=== PATIENT | female | born 2005 | race Caucasian/White ===

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

== ENCOUNTER 2023-03-09 13:23 | Emergency (ER) | payer OTHER, SELFPAY ==
--- NOTE | 2023-03-09 13:27 | ED.FEMALEGU ---
HPI - Female Genitourinary General Chief complaint: Urogenital-Female Stated complaint: Vaginal Issue/Pain Time Seen by Provider: 03/09/23 13:24 Source: patient Mode of arrival: ambulatory Limitations: no limitations History of Present Illness HPI Narrative: Rosalba is a 17-year-old female patient presenting to the clinic today with complaints of vaginal pain/bleeding. She reports symptoms just started this morning. States she was a few days late on her menses. Is having lower abdominal cramping with intense bleeding per patient. States that she has gone through alter pads within 10 minutes. Reports that this is not normal for her and she is having a lot more pain than her normal periods. She is sexually active. Has no concern for any sexually transmitted infection. Denies any other vaginal discharge. No fever or chills. History of ovarian cyst in the past. Related Data Home Medications Medication Instructions Recorded Confirmed bupropion HCl 150 mg 24 hr tablet, 150 mg PO DAILY 03/09/23 03/09/23 extended release lamotrigine 100 mg tablet 100 mg PO DAILY 03/09/23 03/09/23 lamotrigine 25 mg tablet 50 mg PO DAILY 03/09/23 03/09/23 Allergies Allergy/AdvReac Type Severity Reaction Status Date / Time metoclopramide [From Reglan] Allergy FELT ON Verified 10/21/22 09:32 FIRE Review of Systems Review of Systems: Pertinent positives per HPI. Patient denies any fever, chills, rash, headache, visual changes, dizziness, cough, runny nose, sore throat, shortness of breath, chest pain, palpitations, nausea, vomiting, diarrhea, constipation, abdominal pain, or any urinary issues. [facility] [place] Past Medical History Medical History Anxiety and depression Ear infection Surgical History Surgical History History of placement of ear tubes History of tonsillectomy and adenoidectomy Social History Social History Smoking status: Never smoker Alcohol intake: never Substance use type: does not use Living arrangements: with family Gender identity (if verbalized by the patient): Female Comments At the time of my signature, I reviewed and agree with the nursing past medical, surgical, social, and family history. There is no relevant family history pertinent to the patient complaint. Exam Narrative: General: Well-developed, well nourished, in no apparent distress. Head: Normocephalic, atraumatic. Cardio: Regular rate and rhythm, s1 and s2 normal, no murmur appreciated. Resp: Clear to auscultation bilaterally, no rhonchi, rales, wheezing or rubs. Abdomen: Soft, pliable, bowel sounds present in all quadrants, tenderness to palpation over the lower abdomen, pelvis, and bilateral adnexa, no organomegly, mild CVAT tenderness. Course Course Emergency Course: Portions of this record may have been created with voice recognition software. Level of Care: Express Care Visit Vital Signs Vital signs: Vital signs reviewed MDM - Female Genitourinary MDM Narrative Medical decision making narrative: At the time of visit patient is resting on the exam table. Currently rating her pain as 7/10. Urinalysis was performed and was negative for any sign of infection. She does have a trace of blood. Urine preg test was negative in the clinic today. Recommend transfer to the ER for further workup to rule out ovarian cyst. Patient would like to go to [facility] in [place]. Report call to Beba and she accepts patient for transfer. Patient to be transferred via private car. Differential Diagnosis Differential diagnosis: Likely urinary tract infection, bacterial vaginosis, cystitis and other (Dysmenorrhea, ovarian cyst, STI, vaginal tear/trauma) Discharge Plan Discharge Clinical Impression: Vaginal bleeding, Vaginal pain, Tyshawn
== END 2023-03-09 13:53 | disposition short-term general hospital (02) ==
LOC: EXPBETH 13:26
PROVIDERS: Emergency Provider Nurse Practitioner Family
DX: N93.9 Abnormal uterine and vaginal bleeding, unspecified (principal); R10.2 Pelvic and perineal pain; R10.31 Right lower quadrant pain; R10.32 Left lower quadrant pain; F41.9 Anxiety disorder, unspecified; F32.A Depression, unspecified
CPT/HCPCS: 81003; 81025; 99212; G0463

== ENCOUNTER 2023-05-29 13:14 | Emergency (ER) | payer OTHER, SELFPAY ==
[2023-05-29 13:20] VITALS: BP 125/74; PULSE 86; RESP 20; TEMP 36.8; O2SAT 100
--- NOTE | 2023-05-29 13:27 | ED.URI ---
HPI - URI/Sore Throat General Chief Complaint: Upper Respiratory Infection Stated Complaint: nausea and throat History of Present Illness HPI Narrative: PATIENT PRESENTS WITH SORE THROAT AND NAUSEA PATIENT REPORTS A HISTORY OF GERD FROM EATING SPICY CHIPS . PATIENT DENIES ANY TROUBLE SWALLOWING AND NO DROOLING. PATIENT HAS NOT TAKEN HER MEDICATION FOR GERD FOR QUITE SOME TIME. Related Data Home Medications Medication Instructions Recorded Confirmed lamotrigine 100 mg tablet 100 mg PO DAILY 03/09/23 03/09/23 lamotrigine 25 mg tablet 50 mg PO DAILY 03/09/23 03/09/23 Allergies Allergy/AdvReac Type Severity Reaction Status Date / Time metoclopramide [From Reglan] Allergy FELT ON Verified 10/21/22 09:32 FIRE Review of Systems Review of Systems: CONSTITUTIONAL: DENIES FEVER, CHILLS, OR SWEATS. EYES: DENIES VISUAL CHANGES, REDNESS, OR DISCHARGE. ENT: DENIES RHINORRHEA, CONGESTION, SORE THROAT, OR OTALGIA. CARDIOVASCULAR: DENIES CHEST PAIN, PALPITATIONS, OR EDEMA. RESPIRATORY: DENIES COUGH OR DYSPNEA. GASTROINTESTINAL: DENIES ABDOMINAL PAIN, NAUSEA, VOMITING, OR DIARRHEA. GENITOURINARY: DENIES DYSURIA OR HEMATURIA. SKIN: DENIES RASH OR ITCHING. MUSCULOSKELETAL: DENIES BACK PAIN, JOINT PAIN, OR MYALGIA. NEUROLOGIC: DENIES HEADACHE, NUMBNESS, OR WEAKNESS. PSYCHIATRIC: DENIES ANXIETY OR DEPRESSION. PMFSH Past Medical History Medical History Anxiety and depression Ear infection Surgical History Surgical History History of placement of ear tubes History of tonsillectomy and adenoidectomy Social History Social History Smoking status: Never smoker Alcohol intake: never Substance use type: does not use Living arrangements: with family Gender identity (if verbalized by the patient): Female Comments AT TIME OF SIGNATURE, AGREE WITH NURSING PAST MEDICAL, SURGICAL, SOCIAL AND FAMILY HISTORY. THERE IS NO RELEVANT FAMILY HISTORY PERTINENT TO THE PRESENTING COMPLAINT SHE HAS 1 NO CATRACHO Exam Narrative: GENERAL: WELL-APPEARING, WELL-NOURISHED, AND IN NO ACUTE DISTRESS. HEAD: NORMOCEPHALIC, ATRAUMATIC. EYES: PERRLA AND EOMI. ENT: NARES CLEAR, NO RHINORRHEA OR EPISTAXIS. MUCOUS MEMBRANES MOIST. NECK: SUPPLE. CHEST: CLEAR TO AUSCULTATION. NO RESPIRATORY DISTRESS. HEART: REGULAR RATE AND RHYTHM. NO MURMUR HEARD. NORMAL PERIPHERAL PULSES. ABDOMEN: SOFT, NONTENDER, NONDISTENDED, NORMAL ACTIVE BOWEL SOUNDS. EXTREMITIES: NORMAL RANGE OF MOTION. NO EDEMA. SKIN: WARM, DRY, NO RASH. NEURO: NO FOCAL DEFICITS. ALERT AND ORIENTED X3. RORY COMA SCALE EYE OPENING: SPONTANEOUS 4 RORY COMA SCALE MOTOR: OBEYS COMMANDS 6 RORY COMA SCALE VERBAL: ORIENTED 5 RORY COMA SCALE TOTAL 15 RIGHT CALL TOMORROW Course Course Level of Care: Express Care Visit Discharge Plan Discharge Clinical Impression: Pharyngitis, Chronic GERD Additional Instructions: Increase fluids especially juices and water AVOID EATING TWO HOURS PRIOR TO BEDTIME ELEVATE HEAD OF BED FOLLOW BLANK DIET, AVOID FAST FOODS, FRIED AND SPICY FOODS FOLLOW UP WITH PCP IN 7-10 DAYS FOR RE EVALUATION OF OMEPRAZOLE MEDICATION -If you have any worsening of symptoms or any other concerns please go to the ED immediately. She Prescriptions: New omeprazole 40 mg capsule,delayed release(DR/EC) 40 mg PO DAILY Qty: 30 0RF No Action lamotrigine 25 mg tablet 50 mg PO DAILY lamotrigine 100 mg tablet 100 mg PO DAILY Follow-up/Referrals: PHYSICIAN,PHYSICAL SECURITY ENGINEER [Primary Care Provider] - Stand Alone Forms: Work/School Release IP
== END 2023-05-29 13:42 | disposition home or self-care (01) ==
PROVIDERS: Emergency Provider Nurse Practitioner Family
DX: J02.9 Acute pharyngitis, unspecified (principal); K21.9 Gastro-esophageal reflux disease without esophagitis
CPT/HCPCS: 87081; 87880; 99213; G0463

== ENCOUNTER 2023-07-22 09:41 | Emergency (ER) | payer OTHER, SELFPAY ==
[2023-07-22 09:46] VITALS: BP 128/80; PULSE 88; RESP 16; TEMP 36.3; O2SAT 99
--- NOTE | 2023-07-22 10:08 | ED.ABDPAIN ---
HPI - Abdominal Pain General Chief Complaint: Abdominal Pain Stated Complaint: Vomiting Source: patient, family and RN notes reviewed History of Present Illness HPI narrative: 18 yo F presents to urgent care with mom at side. Pt states she woke up this morning at 3 am with complaints of lower abdominal pain. Pt states she got up to use the restroom and she began vomiting. Pt states when she vomits, her whole body goes red and hot. Pt reports her abdominal pain is right, mid, and left lower abdomen. Pt denies any constipation, diarrhea, flank pain, back pain, burning with urination, fevers, or chills. Pt denies any chest pain or SOB. Pt's LMP was 2 weeks ago. Related Data Home Medications Medication Instructions Recorded Confirmed bupropion HCl 150 mg 24 hr tablet, 150 mg PO DIRECTED 07/22/23 07/22/23 extended release Allergies Allergy/AdvReac Type Severity Reaction Status Date / Time metoclopramide [From Reglan] Allergy FELT ON Verified 07/22/23 09:56 FIRE Review of Systems Review of Systems: Pertinent positives and pertinent negatives per HPI. PMFSH Past Medical History Medical History Anxiety and depression Ear infection Surgical History Surgical History History of placement of ear tubes History of tonsillectomy and adenoidectomy Social History Social History Smoking status: Never smoker Alcohol intake: never Substance use type: does not use Living arrangements: with family Gender identity (if verbalized by the patient): Female Comments At the time of my signature, I reviewed and agree with the nursing past medical, surgical, social, and family history. There is no relevant family history pertinent to the patient complaint. Exam Narrative: GENERAL: This is a well-nourished, well-developed patient, in no apparent distress. HEAD: normocephalic, atraumatic. EYES: Sclera clear/white. Vision is grossly intact. EARS: External ears normal, auditory canals clear and without drainage, TMs normal without perforation. Hearing grossly intact. NOSE: External nose normal with no obvious nasal discharge, nares without redness, no rhinorrhea. THROAT: Mucous membranes moist, posterior pharynx clear. NECK: Neck supple, non-tender without lymphadenopathy, masses or thyromegaly. CARDIOVASCULAR: Regular rate and rhythm without murmurs, gallops, or rubs. RESPIRATORY: Clear to auscultation. Breath sounds equal bilaterally. No wheezes, rales, or rhonchi. GASTROINTESTINAL: Abdomen soft, tender to mid lower abdomen, LLQ and RLQ mildly. nondistended. Bowel sounds are hypoactive. No hepato-splenomegaly, or palpable masses. No guarding. SKIN: warm, intact with no suspicious lesions or rash, good texture and turgor. NEURO: awake, alert, and oriented to person, place and time. There were no obvious focal neurologic abnormalities. EXTREMITIES: No clubbing, cyanosis, or edema. No joint tenderness, effusion, or edema noted. BACK: Nontender without deformity or crepitus. No flank tenderness. Course Course Level of Care: Express Care Visit Vital Signs Vital signs: Vital Signs Temperature 97.3 F L 07/22/23 09:46 Pulse Rate 88 07/22/23 09:46 Respiratory Rate 16 07/22/23 09:46 Blood Pressure 128/80 07/22/23 09:46 Pulse Oximetry 99 07/22/23 09:46 Oxygen Delivery Room Air 07/22/23 09:46 Temperature 97.3 F L 07/22/23 09:46 Pulse Rate 88 07/22/23 09:46 Respiratory Rate 16 07/22/23 09:46 Blood Pressure 128/80 07/22/23 09:46 Pulse Oximetry 99 07/22/23 09:46 Oxygen Delivery Room Air 07/22/23 09:46 reviewed MDM - Abdominal Pain MDM Narrative Medical decision making narrative: It was recommended pt be seen in the ER for her lower abdominal pain. Pt states she wants to avoid the ER and
[2023-07-22] MEDS: ONDANSETRON HCL ODT 4 MG TABLET PO (10:16)
== END 2023-07-22 10:50 | disposition home or self-care (01) ==
PROVIDERS: Emergency Provider Nurse Practitioner Family
DX: K52.9 Noninfective gastroenteritis and colitis, unspecified (principal); Z79.899 Other long term (current) drug therapy
CPT/HCPCS: 81003; 81025; 87086; 87088; 99213; A9270; G0463

== ENCOUNTER 2023-08-23 15:22 | Emergency (ER) | payer OTHER, SELFPAY ==
--- NOTE | ~2023-08-23 | XR_ITS ---
XR hand RT min 3V 08/23/2023 15:48 INDICATION: Right hand pain PROCEDURE: 3 views right hand COMPARISON: 06/11/2016 FINDINGS: Fracture, dislocation or subluxation is not identified. The soft tissues appear within norm al limits. No foreign bodies are identified. IMPRESSION: 1: NO ACUTE BONE OR JOINT ABNORMALITY IDENTIFIED. Reviewed, dictated and finalized at location B. [facility]
[2023-08-23 15:27] VITALS: BP 114/67; PULSE 80; RESP 16; TEMP 36.6; O2SAT 99
--- NOTE | 2023-08-23 15:37 | ED.GENADULT ---
HPI - General Adult General Chief complaint: Extremity Injury, Upper Stated complaint: pain in right hand/wrist Source: patient, RN notes reviewed and old records reviewed Mode of arrival: ambulatory Limitations: no limitations History of Present Illness HPI narrative: 18-year-old female presents to [facility] with complaints right wrist, hand pain this started a few days ago while at work. 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 Patient states tried rest hand without relief. patient also got wrist splint but only were 1 day. PATIENT STATES HE HAS HAD BROKEN BONE IN THE HAND BEFORE AND FEELS LIKE IT MAY BE BROKEN. PATIENT REQUESTING X-RAY MD complaint: Hand/wrist pain Onset (ago): day(s) (2-3) Related Data Home Medications Medication Instructions Recorded Confirmed bupropion HCl 150 mg 24 hr tablet, 150 mg PO DIRECTED 07/22/23 07/22/23 extended release aripiprazole 2 mg tablet mg 08/23/23 lamotrigine 100 mg tablet mg 08/23/23 lamotrigine 25 mg tablet mg 08/23/23 omeprazole 40 mg capsule,delayed mg 08/23/23 release prazosin 2 mg capsule mg 08/23/23 Allergies Allergy/AdvReac Type Severity Reaction Status Date / Time metoclopramide [From Reglan] Allergy FELT ON Verified 08/23/23 15:35 FIRE Review of Systems Constitutional: Constitutional: Reports no additional constitutional complaints, Denies body ache(s), Denies chills, Denies fatigue, Denies fever(s) and Denies headache(s) Eyes: Eyes: Reports no additional eye complaints and Denies blurry vision ENT: Reports system reviewed and no additional complaints, except as documented, Denies vertigo, Denies dizziness, Denies ear discharge, Denies otalgia, Denies facial pain, Denies headache(s), Denies nasal congestion, Denies nasal discharge, Denies sinus pain, Denies sinus pressure and Denies sore throat Cardiovascular: Cardiovascular: Reports no additional cardiovascular complaints, Denies chest pain, Denies chest pain at rest, Denies rapid heart rate and Denies dyspnea Respiratory: Respiratory: Reports no additional respiratory complaints, Denies chest congestion, Denies cough, Denies pain on inspiration, Denies pain with cough and Denies dyspnea Gastrointestinal: Gastrointestinal: Denies abdominal pain, Denies diarrhea, Denies nausea and Denies vomiting Musculoskeletal: Musculoskeletal: Reports as per HPI and Reports other ( right wrist and hand pain) Integumentary/Breasts: Skin/Breast: Denies rash Neurologic: Reports system reviewed and no additional complaints, except as documented, Denies vertigo, Denies dizziness and Denies headache(s) Endocrine: Endocrine: Denies fatigue PMFSH Past Medical History Medical History Anxiety and depression Ear infection Surgical History Surgical History History of placement of ear tubes History of tonsillectomy and adenoidectomy Social History Social History Smoking status: Never smoker Alcohol intake: never Substance use type: does not use Living arrangements: with family Gender identity (if verbalized by the patient): Female Comments At the time of my signature, I reviewed and agree with the nursing past medical, surgical, social, and family history. There is no relevant family history pertinent to the patient complaint. Exam Const: General: cooperative, healthy appearing, no acute distress and well nourished Nutritional Appearance: well nourished Orientation/consciousness: patient oriented x3 Limitations: no limitations HENMT: Head: normal to inspection and normocephalic Ears: external ears normal, TM's normal bilaterally, mastoids normal and Abnormal EAC present Face/Nose/Sinus: normal facial exam Face and sinus: normal facial exam Mouth: Yes Normal oral and palatal mucosa present, Yes oropharynx normal and Yes moist mu
== END 2023-08-23 16:15 | disposition home or self-care (01) ==
PROVIDERS: Emergency Provider Registered Nurse
DX: M77.8 Other enthesopathies, not elsewhere classified (principal); F41.9 Anxiety disorder, unspecified; F32.A Depression, unspecified
CPT/HCPCS: 73130; 99213; G0463

== ENCOUNTER 2023-10-03 11:31 | Emergency (ER) | payer OTHER, SELFPAY ==
[2023-10-03 11:34] VITALS: BP 133/78; PULSE 82; RESP 20; TEMP 37; O2SAT 100
--- NOTE | 2023-10-03 12:08 | ED.FEMALEGU ---
HPI - Female Genitourinary General Chief complaint: Urogenital-Female Stated complaint: Poss UTI Time Seen by Provider: 10/03/23 12:12 Source: patient, RN notes reviewed and old records reviewed Mode of arrival: ambulatory Limitations: no limitations History of Present Illness HPI Narrative: 18 year old female who presents to [facility] care with complaints of frequency of urination, urgency and perineal pressure with some bilateral flank pain with stated history of past UTI's for the past 2 days.. Patient reports that she has some low back pain and also some bilateral flank pain on palpation. Patient reports that she has been drinking a lot of water. Patient report recent hospitalization for mental health issues reports that she is in counseling and goes to [facility]. Patient reports no concern for STD's or . MD elicited complaint: UTI Pertinent past history: other (past history of UTI's) Location of symptoms: suprapubic, low back and flank Severity scale (1-10): 6 Vaginal discharge: none Related Data Home Medications Medication Instructions Recorded Confirmed bupropion HCl 150 mg 24 hr tablet, 150 mg PO DAILY 10/03/23 10/03/23 extended release lurasidone 40 mg tablet 40 mg PO DAILY 10/03/23 10/03/23 prazosin 2 mg capsule 2 mg PO DAILY 10/03/23 10/03/23 Allergies Allergy/AdvReac Type Severity Reaction Status Date / Time metoclopramide [From Reglan] Allergy FELT ON Verified 10/03/23 11:43 FIRE Review of Systems Review of Systems: CONSTITUTIONAL: Denies fever, chills, or sweats. CARDIOVASCULAR: Denies chest pain, palpitations, or edema. RESPIRATORY: Denies cough or dyspnea. GASTROINTESTINAL: Denies abdominal pain, nausea, vomiting, or diarrhea. GENITOURINARY: Reports dysuria, frequency, urgency. reports low back and flank pain no hematuria. SKIN: Denies rash or itching. MUSCULOSKELETAL: reports low back pain or myalgia. Positive for CVA tenderness NEUROLOGIC: Denies headache All systems reviewed & are unremarkable except as noted in HPI and below PMFSH Past Medical History Medical History Anxiety and depression Bipolar 1 disorder, mixed Ear infection Fracture of right hand UTI (urinary tract infection) Surgical History Surgical History History of placement of ear tubes History of tonsillectomy and adenoidectomy Social History Social History (Updated 10/05/23 @ 10:42 by Naomy Hernandez NP) Smoking status: Current every day smoker Tobacco type: e-cigarettes/vaping Alcohol intake: never Substance use type: does not use Living arrangements: with family Gender identity (if verbalized by the patient): Female Comments At time of signature, agree with nursing past medical, surgical, social and family history. There is no relevant family history pertinent to the presenting complaint Exam Narrative: GENERAL: Well-appearing, well-nourished, and in no acute distress. HEAD: Normocephalic, atraumatic. NECK: Supple.no lymphadenopathy CHEST: Clear to auscultation. No respiratory distress.SAO2 100% on room air HEART: Regular rate and rhythm. No murmur heard. Normal peripheral pulses. ABDOMEN: Soft, suprapubic tender, nondistended, normal active bowel sounds. positive for CVA tenderness, frequency burning with urination EXTREMITIES: Normal range of motion. No edema. SKIN: Warm, dry, no rash. NEURO: No focal deficits. Alert and oriented x3. Course Course Emergency Course: Patient is aware of diagnosis, understands and agrees to treatment plan.? Anticipatory guidance given.? Patient agrees to follow-up as directed and is aware of reasons to seek care at the emergency department. Portions of this record may have been created with voice recognition software Level of Care: Express Care Visit Vital Signs Vital signs: Vital Signs Temperature 37.0 C 10/03/23
--- NOTE | 2023-10-03 12:44 | PC.NURSE ---
noted on discharge pt refuses info related to suicide prevention ... states goes to [facility], has a good counsellor, and is very happy with outcome.
== END 2023-10-03 12:30 | disposition home or self-care (01) ==
PROVIDERS: Emergency Provider Registered Nurse
DX: R35.0 Frequency of micturition (principal); R39.15 Urgency of urination; R10.9 Unspecified abdominal pain; M54.50 Low back pain, unspecified; F41.9 Anxiety disorder, unspecified; F31.9 Bipolar disorder, unspecified
CPT/HCPCS: 81003; 87086; 99213; G0463

== ENCOUNTER 2023-12-07 11:57 | Emergency (ER) | payer OTHER, SELFPAY ==
[2023-12-07 12:02] VITALS: BP 130/65; PULSE 70; RESP 16; TEMP 37.4; O2SAT 100
--- NOTE | 2023-12-07 12:03 | ED.GENADULT ---
HPI - General Adult General Chief complaint: Urogenital-Female Stated complaint: pressure to urinate/back pain Source: patient, RN notes reviewed and old records reviewed Mode of arrival: ambulatory Limitations: no limitations History of Present Illness HPI narrative: 18-year-old female presents to [facility] with complaints of urinary frequency, urinary urgency, cloudy urine, and right flank pain that started 5 days ago. Patient has been taking [id number] ibuprofen and azo with little relief. Patient denies fever, nausea, vomiting, abdominal pain. Related Data Home Medications Medication Instructions Recorded Confirmed bupropion HCl 150 mg 24 hr tablet, 150 mg PO DAILY 10/03/23 12/07/23 extended release lurasidone 40 mg tablet 40 mg PO DAILY 10/03/23 12/07/23 prazosin 2 mg capsule 2 mg PO DAILY 10/03/23 12/07/23 Allergies Allergy/AdvReac Type Severity Reaction Status Date / Time metoclopramide [From Reglan] Allergy FELT ON Verified 10/03/23 11:43 FIRE Review of Systems Constitutional: Constitutional: Reports no additional constitutional complaints, Denies body ache(s), Denies chills, Denies fatigue, Denies fever(s) and Denies headache(s) Eyes: Eyes: Reports no additional eye complaints and Denies blurry vision ENT: Reports system reviewed and no additional complaints, except as documented, Denies vertigo, Denies dizziness, Denies ear discharge, Denies otalgia, Denies facial pain, Denies headache(s), Denies nasal congestion, Denies nasal discharge, Denies sinus pain, Denies sinus pressure and Denies sore throat Cardiovascular: Cardiovascular: Reports no additional cardiovascular complaints, Denies chest pain, Denies chest pain at rest, Denies rapid heart rate and Denies dyspnea Respiratory: Respiratory: Reports no additional respiratory complaints, Denies chest congestion, Denies cough, Denies pain on inspiration, Denies pain with cough and Denies dyspnea Gastrointestinal: Gastrointestinal: Denies abdominal pain, Denies diarrhea, Denies nausea and Denies vomiting Genitourinary: Genitourinary: Reports as per HPI, Reports nocturia, Denies dysuria, Denies pelvic pain, Reports flank pain, Reports urinary urgency and Denies vaginal discharge Integumentary/Breasts: Skin/Breast: Denies rash Neurologic: Reports system reviewed and no additional complaints, except as documented, Denies vertigo, Denies dizziness and Denies headache(s) Endocrine: Endocrine: Denies fatigue PMFSH Past Medical History Medical History Anxiety and depression Bipolar 1 disorder, mixed Ear infection Fracture of right hand UTI (urinary tract infection) Surgical History Surgical History History of placement of ear tubes History of tonsillectomy and adenoidectomy Social History Social History Smoking status: Current every day smoker Tobacco type: e-cigarettes/vaping Alcohol intake: never Substance use type: does not use Living arrangements: with family Gender identity (if verbalized by the patient): Female Comments At the time of my signature, I reviewed and agree with the nursing past medical, surgical, social, and family history. There is no relevant family history pertinent to the patient complaint. Exam Const: General: cooperative, healthy appearing, no acute distress and well nourished Nutritional Appearance: well nourished Orientation/consciousness: patient oriented x3 Limitations: no limitations HENMT: Head: normal to inspection and normocephalic Ears: external ears normal, TM's normal bilaterally, mastoids normal and Abnormal EAC present Face/Nose/Sinus: normal facial exam Face and sinus: normal facial exam Mouth: Yes Normal oral and palatal mucosa present, Yes oropharynx normal and Yes moist mucous membranes Throat: tonsils normal, u
== END 2023-12-07 12:24 | disposition home or self-care (01) ==
PROVIDERS: Emergency Provider Registered Nurse; PCP Family Medicine
DX: R10.9 Unspecified abdominal pain (principal); F17.290 Nicotine dependence, other tobacco product, uncomplicated; F41.9 Anxiety disorder, unspecified; F32.A Depression, unspecified
CPT/HCPCS: 81003; 81025; 87086; 99213; G0463

== ENCOUNTER 2024-01-08 18:26 | Emergency (ER) | payer OTHER, SELFPAY ==
--- NOTE | ~2024-01-08 | XR_ITS ---
EXAM: XR hand LT min 3V DATE: 01/08/2024 18:59 HISTORY: hurt LT hand . COMPARISON: None available. FINDINGS: Normal mineralization. No fracture or dislocation. No lytic or blastic lesion. Joint space s are maintained. No erosion or periosteal change. Soft tissues within normal limits. IMPRESSION: No acute osseous finding in the left hand. Reviewed, dictated and finalized at location K.
[2024-01-08 18:36] VITALS: BP 118/74; PULSE 94; RESP 20; TEMP 37.6; O2SAT 100
--- NOTE | 2024-01-08 18:41 | ED.URI ---
HPI - URI/Sore Throat General Chief Complaint: Extremity Injury, Upper Stated Complaint: left hand dislocated fingers Time Seen by Provider: 01/08/24 18:41 Source: patient, family, RN notes reviewed and old records reviewed Mode of arrival: ambulatory Limitations: no limitations History of Present Illness HPI Narrative: 18 year old female accompanied by mother presents to express care with complaints of left middle finger pain and injury. She reports that she was attempting to break apart six pack meraz made of strong plastic around 1800. Patient states that she had pain to her left middle finger and her finger looked crooked.Reports that her left middle finger continues to throb. MD elicited complaint: other (left middle finger pain and concerned looks crooked) Onset (ago): hour(s) (at 1800) Pain scale (0-10): 4 Treatments prior to arrival: none Related Data Home Medications Medication Instructions Recorded Confirmed bupropion HCl 150 mg 24 hr tablet, 150 mg PO DAILY 10/03/23 01/08/24 extended release lurasidone 40 mg tablet 40 mg PO DAILY 10/03/23 01/08/24 prazosin 2 mg capsule 2 mg PO DAILY 10/03/23 01/08/24 Allergies Allergy/AdvReac Type Severity Reaction Status Date / Time metoclopramide [From Reglan] Allergy FELT ON Verified 01/08/24 19:21 FIRE Review of Systems Review of Systems: CONSTITUTIONAL: Denies fever, chills, or sweats. EYES: Denies visual changes, redness, or discharge. ENT: Denies rhinorrhea, congestion, sore throat, or otalgia. CARDIOVASCULAR: Denies chest pain, palpitations, or edema. RESPIRATORY: Denies cough or dyspnea. GASTROINTESTINAL: Denies abdominal pain, nausea, vomiting, or diarrhea. GENITOURINARY: Denies dysuria or hematuria. SKIN: Denies rash or itching. MUSCULOSKELETAL: Denies back pain, positive for pain to left hand and fingers, or myalgia. NEUROLOGIC: Denies headache, numbness, or weakness. PSYCHIATRIC: Positive for history of anxiety or depression. All systems reviewed & are unremarkable except as noted in HPI and below PMFSH Past Medical History Medical History Anxiety and depression Bipolar 1 disorder, mixed Ear infection Fracture of right hand UTI (urinary tract infection) Surgical History Surgical History History of placement of ear tubes History of tonsillectomy and adenoidectomy Social History Social History Smoking status: Current every day smoker Tobacco type: e-cigarettes/vaping Alcohol intake: never Substance use type: does not use Living arrangements: with family Gender identity (if verbalized by the patient): Female Comments At time of signature, agree with nursing past medical, surgical, social and family history. There is no relevant family history pertinent to the presenting complaint Exam Narrative: GENERAL: Well-appearing, well-nourished, and in no acute distress. HEAD: Normocephalic, atraumatic. EYES: PERRLA and EOMI. ENT: Nares clear, no rhinorrhea or epistaxis. Mucous membranes moist.TM's normal throat pink tonsil absent. NECK: Supple.no lymphadenopathy CHEST: Clear to auscultation. No respiratory distress.SAO2 100% on room air HEART: Regular rate and rhythm. No murmur heard. Normal peripheral pulses. ABDOMEN: Soft, nontender, nondistended, normal active bowel sounds. EXTREMITIES: Normal range of motion. No edema. no obvious deformity to left middle finger, is tender to palpation, circulation and sensation is intact with patient able to move on own power, ice in place. SKIN: Warm, dry, no rash. NEURO: No focal deficits. Alert and oriented x3. Course Course Emergency Course: Patient is aware of diagnosis, understands and agrees to treatment plan.? Anticipatory guidance given.? Patient agrees to follow-up as directed and is aware of reasons to seek care at
== END 2024-01-08 19:45 | disposition home or self-care (01) ==
PROVIDERS: Emergency Provider Registered Nurse; PCP Family Medicine
DX: S63.613A Unspecified sprain of left middle finger, initial encounter (principal); T14.90XA Injury, unspecified, initial encounter; F41.8 Other specified anxiety disorders; F31.9 Bipolar disorder, unspecified; F17.290 Nicotine dependence, other tobacco product, uncomplicated
CPT/HCPCS: 73130; 99213; G0463

== ENCOUNTER 2024-01-25 14:15 | Emergency (ER) | payer OTHER, SELFPAY ==
[2024-01-25 14:23] VITALS: BP 132/78; PULSE 76; RESP 18; TEMP 37.1; O2SAT 100
--- NOTE | 2024-01-25 15:16 | PC.NURSE ---
mother came to nurse station and stated unable to wait dt another appt., had said with initial assessment that time was limited and was aware of xpc status. said would wait as long as possible. aware next to be seen. said would wait 5 more min. but would have to leave after that.
--- NOTE | 2024-01-25 21:55 | ED.URI ---
HPI - URI/Sore Throat General Chief Complaint: Upper Respiratory Infection Stated Complaint: Congestion/Sore Throat/Fever Time Seen by Provider: 01/25/24 15:02 Source: patient, RN notes reviewed and old records reviewed Mode of arrival: ambulatory Limitations: no limitations History of Present Illness HPI Narrative: 18-year-old female to Express Care for complaint of sore throat for 6 days. Patient also endorsing bilateral ear discomfort and vomiting. Patient denies fever, cough, shortness of breath, chest pain, GI complaints. Patient able to tolerate fluids by mouth. Respirations even, nonlabored. Patient in no acute distress. Related Data Home Medications Medication Instructions Recorded Confirmed bupropion HCl 150 mg 24 hr tablet, 150 mg PO DAILY 10/03/23 01/08/24 extended release lurasidone 40 mg tablet 40 mg PO DAILY 10/03/23 01/08/24 prazosin 2 mg capsule 2 mg PO DAILY 10/03/23 01/08/24 Allergies Allergy/AdvReac Type Severity Reaction Status Date / Time metoclopramide [From Reglan] Allergy FELT ON Verified 01/08/24 19:21 FIRE Review of Systems Review of Systems: All systems reviewed & are unremarkable except as noted in HPI and below Constitutional: Constitutional: Reports no additional constitutional complaints Eyes: Eyes: Reports no additional eye complaints ENT: Reports as per HPI, Reports otalgia and Reports sore throat Cardiovascular: Cardiovascular: Reports no additional cardiovascular complaints, Denies chest pain and Denies dyspnea Respiratory: Respiratory: Reports no additional respiratory complaints, Denies cough and Denies dyspnea Gastrointestinal: Gastrointestinal: Reports vomiting Musculoskeletal: Musculoskeletal: Reports no additional musculoskeletal complaints Neurologic: Reports system reviewed and no additional complaints, except as documented Psychiatric: Psychiatric: Reports no additional psychiatric complaints [facility] Past Medical History Medical History Anxiety and depression Bipolar 1 disorder, mixed Ear infection Fracture of right hand UTI (urinary tract infection) Surgical History Surgical History History of placement of ear tubes History of tonsillectomy and adenoidectomy Social History Social History Smoking status: Current every day smoker Tobacco type: e-cigarettes/vaping Alcohol intake: never Substance use type: does not use Living arrangements: with family Gender identity (if verbalized by the patient): Female Comments At the time of my signature, I reviewed and agree with the nursing past medical, surgical, social, and family history. There is no relevant family history pertinent to the patient complaint. Exam Const: General: cooperative, no acute distress, alert, tired appearing, uncomfortable and well nourished Nutritional Appearance: well nourished Orientation/consciousness: patient oriented x3 Limitations: no limitations HENMT: Head: normal to inspection Ears: external ears normal and TM abnormal with fluid behind the TM bilateral and diffuse Face/Nose/Sinus: Normal external nose present, Normal nares present, normal facial exam, No erythema and No edema Face and sinus: normal facial exam, no erythema and no edema Mouth: Yes Normal oral and palatal mucosa present Throat: posterior oropharynx abnormal erythema and exudates and postnasal drainage Eyes: General: appearance normal, both eyes and all related structures Neck: Neck: normal visual inspection, full ROM and no meningeal signs Lymphatic: no lymphadenopathy noted and no lymphedema noted Chest: Chest palpation & inspection: normal inspection of the chest Resp: Effort & Inspection: normal respiratory effort and able to speak in complete sentences Auscultation: clear to auscultation bilateral
== END 2024-01-25 15:24 | disposition home or self-care (01) ==
PROVIDERS: Emergency Provider Nurse Practitioner Family; PCP Family Medicine
DX: J02.0 Streptococcal pharyngitis (principal); F17.290 Nicotine dependence, other tobacco product, uncomplicated; F41.9 Anxiety disorder, unspecified; F31.9 Bipolar disorder, unspecified
CPT/HCPCS: 99213; G0463

== ENCOUNTER 2024-02-26 08:11 | Emergency (ER) | payer OTHER, SELFPAY ==
[2024-02-26 08:16] VITALS: BP 117/79; PULSE 118; RESP 20; TEMP 37.2; O2SAT 100
--- NOTE | 2024-02-26 08:21 | ED.GENADULT ---
HPI - General Adult General Chief complaint: Upper Respiratory Infection Stated complaint: throat/sob Time Seen by Provider: 02/26/24 08:21 Source: patient, RN notes reviewed and old records reviewed Mode of arrival: ambulatory Limitations: no limitations History of Present Illness HPI narrative: 18-year-old female to Express Care for complaint sore throat for 2 days. Patient states it is more painful with swallowing. Patient tested positive for strep throat 1st week of January and was treated with amoxicillin. Patient has been attempting to treat at home with [id number] cold and flu medications with little relief. Patient denies chest pain, shortness of breath, ear pain, GI complaints. Patient tearful in triage and exam room due to discomfort. Patient able to tolerate fluids by mouth. Patient reports that she is trying to drink at least 64 oz of water per day. respirations even and nonlabored. Patient able to speak in full sentences without difficulty. Patient in no acute distress. Related Data Home Medications Medication Instructions Recorded Confirmed bupropion HCl 150 mg 24 hr tablet, 150 mg PO DAILY 10/03/23 01/08/24 extended release lurasidone 40 mg tablet 40 mg PO DAILY 10/03/23 01/08/24 prazosin 2 mg capsule 2 mg PO DAILY 10/03/23 01/08/24 Allergies Allergy/AdvReac Type Severity Reaction Status Date / Time metoclopramide [From Reglan] Allergy FELT ON Verified 01/08/24 19:21 FIRE Review of Systems Review of Systems: All systems reviewed & are unremarkable except as noted in HPI and below Constitutional: Constitutional: Reports no additional constitutional complaints Eyes: Eyes: Reports no additional eye complaints ENT: Reports as per HPI and Reports sore throat Cardiovascular: Cardiovascular: Reports no additional cardiovascular complaints, Denies chest pain and Denies dyspnea Respiratory: Respiratory: Reports no additional respiratory complaints, Reports cough ( dry) and Denies dyspnea Musculoskeletal: Musculoskeletal: Reports no additional musculoskeletal complaints Neurologic: Reports system reviewed and no additional complaints, except as documented Psychiatric: Psychiatric: Reports no additional psychiatric complaints PMFSH Past Medical History Medical History Anxiety and depression Bipolar 1 disorder, mixed Ear infection Fracture of right hand UTI (urinary tract infection) Surgical History Surgical History History of placement of ear tubes History of tonsillectomy and adenoidectomy Social History Social History Smoking status: Current every day smoker Tobacco type: e-cigarettes/vaping Alcohol intake: never Substance use type: does not use Living arrangements: with family Gender identity (if verbalized by the patient): Female Comments At the time of my signature, I reviewed and agree with the nursing past medical, surgical, social, and family history. There is no relevant family history pertinent to the patient complaint. Exam Const: General: cooperative, no acute distress, alert, anxious, ill appearing acutely, tired appearing, uncomfortable and well nourished Nutritional Appearance: well nourished Orientation/consciousness: patient oriented x3 Limitations: no limitations HENMT: Head: normal to inspection Ears: external ears normal Face/Nose/Sinus: Normal external nose present, Normal nares present, normal facial exam, No erythema and No edema Face and sinus: normal facial exam, no erythema and no edema Mouth: Yes Normal oral and palatal mucosa present Throat: uvula midline, abnormal tonsil, posterior oropharynx abnormal erythema, tonsils absent and no uvular edema Eyes: General: appearance normal, both eyes and all related structures Neck: Neck: normal visual inspecti
[2024-02-26 09:40] LABS: EDSTREPNEGPOS1 Presumptive Negative
== END 2024-02-26 08:59 | disposition home or self-care (01) ==
PROVIDERS: Emergency Provider Nurse Practitioner Family; PCP Family Medicine
DX: B34.9 Viral infection, unspecified (principal); F17.290 Nicotine dependence, other tobacco product, uncomplicated; F41.9 Anxiety disorder, unspecified; F31.9 Bipolar disorder, unspecified
CPT/HCPCS: 87081; 87880; 99213; G0463

== ENCOUNTER 2024-07-22 10:05 | Emergency (ER) | payer OTHER, SELFPAY ==
[2024-07-22 10:08] VITALS: BP 131/72; PULSE 92; RESP 20; TEMP 36.8; O2SAT 100
--- NOTE | 2024-07-22 10:16 | ED.FEMALEGU ---
HPI - Female Genitourinary General Chief complaint: Urogenital-Female Stated complaint: Urinary Problem Time Seen by Provider: 07/22/24 10:30 Source: patient and RN notes reviewed Mode of arrival: ambulatory Limitations: no limitations History of Present Illness HPI Narrative: 19-year-old female presents with concern for 3 day history of dysuria, urgency, frequency, suprapubic pressure. She reports some hematuria. She reports nausea without vomiting. She denies fever. She is unsure of her last menstrual period. MD elicited complaint: UTI Related Data Home Medications Medication Instructions Recorded Confirmed lurasidone 40 mg tablet 40 mg PO DAILY 10/03/23 07/22/24 prazosin 2 mg capsule 2 mg PO QHS 10/03/23 07/22/24 bupropion HCl 300 mg 24 hr tablet, 300 mg PO DAILY 07/22/24 07/22/24 extended release trazodone 50 mg tablet 50 mg PO QHS 07/22/24 07/22/24 Allergies Allergy/AdvReac Type Severity Reaction Status Date / Time metoclopramide [From Reglan] Allergy Unknown FELT ON Verified 07/22/24 10:17 FIRE Review of Systems Review of Systems: CONSTITUTIONAL: Denies malaise, chills, sweats, or fever. CARDIOVASCULAR: Denies chest pain, palpitations, or edema. RESPIRATORY: Denies cough or dyspnea. GASTROINTESTINAL: Denies abdominal pain, nausea, vomiting, diarrhea GENITOURINARY: Reports dysuria, frequency, urgency, suprapubic pressure, hematuria. Denies flank pain SKIN: Denies rash or itching. MUSCULOSKELETAL: Denies back pain or myalgia. All systems reviewed & are unremarkable except as noted in HPI and below PMFSH Past Medical History Medical History Anxiety and depression Bipolar 1 disorder, mixed Ear infection Fracture of right hand UTI (urinary tract infection) Surgical History Surgical History History of placement of ear tubes History of tonsillectomy and adenoidectomy Social History Social History Smoking status: Current every day smoker Tobacco type: e-cigarettes/vaping Alcohol intake: never Substance use type: does not use Living arrangements: with family Gender identity (if verbalized by the patient): Female Comments At time of signature, agree with nursing past medical, surgical, social and family history. There is no relevant family history pertinent to the presenting complaint Exam Narrative: GENERAL: Well-appearing, well-nourished, and in no acute distress. HEAD: Normocephalic. EYES: PERRLA, conjunctivae clear. NECK: Supple. No lymphadenopathy CHEST: Clear to auscultation. No respiratory distress. HEART: Regular rate and rhythm. ABDOMEN: Soft, nontender upon palpation, nondistended, normal active bowel sounds, no palpable or pulsatile masses, no guarding. Left CVA tenderness SKIN: Warm, dry, no rash. NEURO: Alert and oriented x3. PSYCH: Normal mood and affect Course Course Emergency Course: Patient is aware of diagnosis, understands and agrees to treatment plan. Anticipatory guidance given. Patient agrees to follow-up as directed and is aware of reasons to seek care at the emergency department. Portions of this record may have been created with voice recognition software Level of Care: Express Care Visit Vital Signs Vital signs: Reviewed. MDM - Female Genitourinary MDM Narrative Medical decision making narrative: Exam findings and UA show no acute concerns or changes; patient is non-toxic appearing and is in no distress. Patient is appropriate for outpatient treatment and follow-up. Differential Diagnosis Differential diagnosis: Likely urinary tract infection and cystitis Critical Care Time Critical Care Time Critical Care Time: No Discharge Plan Discharge Clinical Impression: Symptoms of urinary tract infection Patient Disposition: Home, Self-Care Condition: Stable Instructions: Antibiotic Form, Urinary Tract Infection in Women (ED) Additional Instructions: We will send a urine culture to the lab; if the culture identifies an organism that the prescribed antibiotic will not treat, you will receive a phone call from an urgent care staff member and an appropriate antibiotic will be prescribed. -Your symptoms should begin to improve within a day of starting antibiotics. But you should finish all the antibiotic pills you get. Otherwise your infection might come back. -Also recommend: increase water intake. Tylenol/ibuprofen as needed for pain or fever -Follow-up with your primary care provider for urine recheck or seek ER visit if condition worsens with high fever, nausea, vomiting and severe back pain. Prescriptions: New sulfamethoxazole-trimethoprim 800-160 mg tablet 1 tablet PO Q12H 5 Days Qty: 10 0RF No Action bupropion HCl 300 mg tablet extended release 24 hr 300 mg PO DAILY trazodone 50 mg tablet 50 mg PO QHS prazosin 2 mg capsule 2 mg PO QHS lurasidone 40 mg tablet 40 mg PO DAILY Follow-up/Referrals: Eliezer,Radha Benoit MD [Primary Care Provider] - Stand Alone Forms: Work/School Release IP Time of Disposition: 10:42
[2024-07-22 10:19] VITALS: BP 131/72; PULSE 92; RESP 20; TEMP 36.8; O2SAT 100
[2024-07-22 10:32] LABS: BEDSIDEPREGUCG Negative (Negative); EDUAAPPEAR Cloudy; EDUABILI Negative (Negative); EDUABLOOD Negative (Negative); EDUACOLOR1 Yellow; EDUAGLUCOSE Negative (Negative); EDUAKETONE Negative (Negative); EDUALEUKO Trace (Negative); EDUANITRATE Negative (Negative); EDUAPH 7.5; EDUAPROTEIN 1+ (Negative); EDUAUROBILI 0.2
== END 2024-07-22 10:43 | disposition home or self-care (01) ==
PROVIDERS: Emergency Provider Nurse Practitioner; PCP Family Medicine
DX: R30.0 Dysuria (principal); R35.0 Frequency of micturition; R39.15 Urgency of urination; F17.290 Nicotine dependence, other tobacco product, uncomplicated; F41.9 Anxiety disorder, unspecified; F31.9 Bipolar disorder, unspecified
CPT/HCPCS: 81003; 81025; 87086; 99213; G0463

== ENCOUNTER 2024-08-24 13:40 | Emergency (ER) | payer OTHER, SELFPAY ==
--- NOTE | 2024-08-24 13:57 | ED.URI ---
HPI - URI/Sore Throat General Chief Complaint: Upper Respiratory Infection Stated Complaint: Headache/Cough Time Seen by Provider: 08/24/24 13:58 Source: patient Mode of arrival: ambulatory Limitations: no limitations History of Present Illness HPI Narrative: 19 yo F presents with c/o 2 wks of nasal congestion, sinus pressure and headache, PND, fatigue. Reports intermittent fever and chills. Cough is mild. No chest pain or shortness of breath. All systems reviewed and negative except as noted above. Related Data Home Medications ?Medication ?Instructions ?Recorded ?Confirmed ?Last Taken ?Type lurasidone 40 mg tablet 40 mg PO DAILY 10/03/23 07/22/24 Unknown History prazosin 2 mg capsule 2 mg PO QHS 10/03/23 07/22/24 Unknown History bupropion HCl 300 mg 24 hr tablet, 300 mg PO DAILY 07/22/24 07/22/24 Unknown History extended release trazodone 50 mg tablet 50 mg PO QHS 07/22/24 07/22/24 Unknown History Allergies Allergy/AdvReac Type Severity Reaction Status Date / Time metoclopramide (From Reglan) Allergy Unknown FELT ON Verified 07/22/24 10:17 FIRE Review of Systems Review of Systems: CONSTITUTIONAL: reports fever, chills, or sweats. EYES: Denies visual changes, redness, or discharge. ENT: Reports rhinorrhea, congestion, sinus pressure, postnasal drainage. Denies sore throat, or otalgia. CARDIOVASCULAR: Denies chest pain, palpitations, or edema. RESPIRATORY: reports cough. Denies dyspnea. GASTROINTESTINAL: Denies abdominal pain, nausea, vomiting, or diarrhea. GENITOURINARY: Denies dysuria or hematuria. SKIN: Denies rash or itching. MUSCULOSKELETAL: Denies back pain, joint pain, or myalgia. NEUROLOGIC: Denies headache, numbness, or weakness. PSYCHIATRIC: Denies anxiety or depression. All other systems reviewed are negative, except as documented in HPI. [facility] Past Medical History Medical History Anxiety and depression Bipolar 1 disorder, mixed Ear infection Fracture of right hand UTI (urinary tract infection) Surgical History Surgical History History of placement of ear tubes History of tonsillectomy and adenoidectomy Social History Social History Smoking status: Current every day smoker Tobacco type: e-cigarettes/vaping Alcohol intake: never Substance use type: does not use Living arrangements: with family Gender identity (if verbalized by the patient): Female Comments At time of signature, agree with nursing past medical, surgical, social and family history. There is no relevant family history pertinent to the presenting complaint. Exam Narrative: GENERAL: This is a well-nourished, well-developed patient, in no apparent distress. HEAD: normocephalic, atraumatic. EYES: PERRL. Sclera clear/white. Vision is grossly intact. EARS: External ears normal, auditory canals clear and without drainage, TMs normal without perforation. Hearing grossly intact. NOSE: External nose normal with mild congestion, purulent nasal drainage, frontal and maxillary sinus tenderness on palpation. THROAT: Mucous membranes moist, mild erythema with postnasal drainage NECK: Neck supple, non-tender without lymphadenopathy, masses or thyromegaly. CARDIOVASCULAR: Regular rate and rhythm without murmurs, gallops, or rubs. RESPIRATORY: Clear to auscultation. Breath sounds equal bilaterally. No wheezes, rales, or rhonchi. SKIN: warm, Dry, intact with no suspicious lesions or rash, good texture and turgor. NEURO: awake, alert, and oriented to person, place and time. There were no obvious focal neurologic abnormalities. EXTREMITIES: No joint tenderness, effusion, or edema noted. Course Course Level of Care: Express Care Visit Vital Signs Vital signs: Vital Signs Temperature 37.5 C 08/24/24 14:12 Pulse Rate 96 08/24/24 14:12 Respiratory Rate 20 08/24/24 14:12 Blood Pressure 131/78 08/24/24 14:12 Pulse Oximetry 100 08/24/24 14:12 Oxygen Delivery Room Air 08/24/24 14:12 Temperature 37.5 C 08/24/24 14:12 Pulse Rate 96 08/24/24 14:12 Respiratory Rate 20 08/24/24 14:12 Blood Pressure 131/78 08/24/24 14:12 Pulse Oximetry 100 08/24/24 14:12 Oxygen Delivery Room Air 08/24/24 14:12 Reviewed MDM - URI/Sore Throat MDM Narrative Medical decision making narrative: will treat patient for bacterial sinusitis due to duration of symptoms and exam findings. Patient is aware of diagnosis, understands and agrees to treatment plan. Anticipatory guidance given. Patient agrees to follow-up as directed and is aware of reasons to seek care at the emergency department. Portions of this record may have been created with voice recognition software Lab Data Labs: Lab Results 08/24/24 Range/Units 14:16 POC Influenza A Ag Negative (Negative) POC Influenza B Ag Negative (Negative) Discharge Plan Discharge Clinical Impression: Acute bacterial sinusitis Patient Disposition: Home, Self-Care Condition: Stable Instructions: Antibiotic Form, Sinusitis (ED) Additional Instructions: your influenza test was negative today. Take medications as prescribed. Drink at least 64 oz of water a day. Follow-up with your primary care physician if symptoms are not improving. Patient Language: Somali Prescriptions: New benzonatate 200 mg capsule 200 mg PO TID PRN (Reason: cough) Qty: 20 0RF fluticasone propionate [Flonase Allergy Relief] 50 mcg/actuation spray,suspension 1 spray intranasal BID Qty: 16 0RF Rx Instructions: administer into each nostril loratadine [Claritin] 10 mg tablet 10 mg PO DAILY Qty: 30 0RF amoxicillin-pot clavulanate 875-125 mg tablet 1 tablet PO Q12H 7 Days Qty: 14 0RF methylprednisolone [Medrol (Telly)] 4 mg tablets,dose pack See Rx Instructions PO .COMPLEX Qty: 21 0RF Rx Instructions: orally per package directions No Action bupropion HCl 300 mg tablet extended release 24 hr 300 mg PO DAILY trazodone 50 mg tablet 50 mg PO QHS sulfamethoxazole-trimethoprim 800-160 mg tablet 1 tablet PO Q12H 5 Days Qty: 10 0RF prazosin 2 mg capsule 2 mg PO QHS lurasidone 40 mg tablet 40 mg PO DAILY Follow-up/Referrals: Edilberto,Radha Benoit MD [Primary Care Provider] - Time of Disposition: 14:11
[2024-08-24 14:12] VITALS: BP 131/78; PULSE 96; RESP 20; TEMP 37.5; O2SAT 100
[2024-08-24 14:18] LABS: EDINFLUASCREEN Negative (Negative); EDINFLUBSCREEN Negative (Negative)
--- OUTSIDE RECORDS SUMMARY | 2024-08-31 21:54 | XMS_ITS | Encounter Summary ---
Author Organization [facility] Health Address [address] [place] [address] Care Team Providers Care Grain Shipper Name Role Phone Nelly Marcus MD Primary Care Provider [phone] Encounter Details Date Type Department Care Team (Latest Contact Info) Description 06/20/2018 7:32 AM CDT - 06/20/2018 11:59 PM CDT Hospital Encounter [facility] at [address] [address] Ramirez Mcneal MD [address] [place] [phone] Discharge Disposition: Home or Self Care Social History Tobacco Use Types Packs/Day Years Used Date Smoking Tobacco: Never Alcohol Use Standard Drinks/Week Comments Not Asked 0 (1 standard drink = 0.6 oz pur e alcohol) Sex and Gender Information Value Date Recorded Sex Assigned at Not on file Gender Identity Not on file Sexual Orientation Not on file documented as of this encounter Medications at Time of Discharge Medication Sig Dispensed Refills Start Date End Date [place]-Oodiigmdbccld-So ffeine (EXCEDRIN MIGRAINE PO) Take 2 Tabs by mouth 020 rizatriptan (MAXALT) 5 MG tablet Take 1 Tab by mouth once as needed for Migraine (Do not take more than two in 24 hours.) 8 Tab 5 07/27/2016 09/17/2019 topiramate (TOPAMAX) 25 MG tablet Take 1 Tab by mouth at bedtime 30 Tab 5 07/27/2016 09/17/2019 documented as of this encounter Plan of Treatment Not on file documented as of this encounter Visit Diagnoses Not on filedocumented in this encounter Care Teams Grain Shipper Relationship Specialty Start Date End Date Nelly Marcus MD [address] [place] [id number] PCP - General Pediatrics 03/30/16 09/16/19 documented as of this encounter
--- OUTSIDE RECORDS SUMMARY | 2024-08-31 21:54 | XMS_ITS | Encounter Summary ---
Author Organization [facility] Health Address [address] [facility] [place] [address] Care Team Providers Care Upward Bound Director Name Role Phone Nelly Marcus MD Primary Care Provider [phone] Encounter Details Date Type Department Care Team (Latest Contact Info) Description 09/04/2020 Travel Social History Tobacco Use Types Packs/Day Years Used Date Smoking Tobacco: Never Smokeless Tobacco: Never Alcohol Use Standard Drinks/Week Comments Not Currently 0 (1 standard drink = 0.6 oz pur e alcohol) Sex and Gender Information Value Date Recorded Sex Assigned at Not on file Gender Identity Not on file Sexual Orientation Not on file COVID-19 Exposure Response Date Recorded In the last month, have you been in contact with someone who was confirmed or suspected to have Coronavirus / COVID-19? No / Unsure 09/04/2020 3:22 PM BIOSOLIDS MANAGEMENT TECHNICIAN documented as of this encounter Plan of Treatment Not on file documented as of this encounter Visit Diagnoses Not on filedocumented in this encounter Care Teams Upward Bound Director Relationship Specialty Start Date End Date Nelly Marcus MD [address] [place] [address] PCP - General 10/15/19 documented as of this encounter
--- OUTSIDE RECORDS SUMMARY | 2024-08-31 21:54 | XMS_ITS | Clinical Summary ---
Author Organization [facility] Address [address] [facility] [place] [address] Care Team Providers Care Skidder Operator Name Role Phone Nelly Marcus MD Primary Care Provider [phone] Source Comments [facility],non-owned Affiliates and Associated Physician Practices is amultiple site organization consisting of ambulatory clinics and hospital sitesin [place], [place], [place] and [place]. This disclosure is being madepursuant to the Care Everywhere program and may not contain all information available regarding this patient. Last updated 18.[facility] [employer] Allergies No known active allergies Medications * Be aware that medications may not be up to date on this document. Alwaysverify current medications with the patient. Medication Sig Dispensed Refills Start Date End Date Status sertraline (ZOLOFT) 25 MG tablet Take 25 mg by mouth once daily Active prazosin (MINIPRESS) 2 MG capsule Take 2 mg by mouth once daily 09/04/2019 Active famotidine (PEPCID) 20 MG tablet Take 1 tablet by mouth 2 times daily,before breakfast and supper 60 tablet 2 09/17/2019 Active polyethylene glycol 3350 (MIRALAX) powder Take 17 g by mouth once daily as needed for Constipation 500 g 2 09/17/2019 Active Active Problems Problem Noted Date Diagnosed Date Blood in stool 09/17/2019 GERD (gastroesophageal reflux disease) 0 Abdominal pain, generalized 09/17/2019 Chronic migraine without aur a without status migrainosus, not intractable 04/27/2016 Assessment & Plan (07/27/2016 3:57 PM COMMUNICATIONS PROFESSOR): Assessment: 11 year old girl with chronic migraines who has nausea, phonophobia, photophobia, and worsening with activity associated with her headaches. Was started on Topamax 25 mg, nightly and this has decreased the frequency from 2 every week to now only 3 in the last 3 months. No significant side effects from Topamax. Hydration and diet remains poor. Plan: - Continue Topamax 25 mg, nightly. - Continue Maxalt 5 mg, PRN for severe migraines. - Reinforced headache hygiene with eating regular meals, drinking at least 64 oz of water a day, getting at least 8 hours of sleep, and staying active. - Can follow up in 6 months, and if headaches continue to be well controlled may consider stopping the Topamax. Dad may call and we can do this over the phone if he desires. Assessment & Plan (04/27/2016 1:37 PM CDT): Assessment: 10 year old girl, previously healthy, who has a 2 year history of weekly headaches lasting for hours described as throbbing with nausea, phono, and photophobia which are exacrbated with activity and relived by rest. Takes excedrin 1-2 times a week which shows some improvement in symptoms. Has taken Maxalt in the past which occasionally showed improvement. No chest pain or palpitations. Has associated arm tingling and light headedness. No vision, speech, or strength changes. + family history of migraines. Given their description, these headaches are likely migrainous in origin and given their frequency, she would benefit from prophylactic management in addition to abortive therapy. Plan: - Discussed appropriate headache hygiene with at least 8 glasses of water a day, decreased caffeine intake, at least 8 hours of sleep a night, 3 regular meals a day without skipped meals, and decreased stressors. - Will start Topamax 25 mg, nightly as daily prophylactic medication. - Maxalt PRN as abortive migraine medication. - Follow up in 6 months, but may call our clinic in 4-6 weeks for follow up and we may increase Topamax should headaches continue. Headache 04/26/2016 Chest pain Resolved Problems Problem Noted Date Diagnosed Date Resolved Date Constipation 09/17/2019 10/15/2019 Family History Medical History Relation Name Comments Colon polyps Father Other Father IBS, GERD, stom ach ulcers, gallstones Relation Name Status Comments Father Social History Tobacco Use Types Packs/Day Years Used Date Smoking Tobacco: Never Smokeless Tobacco: Never Alcohol Use Standard Drinks/Week Comments Not Currently 0 (1 standard drink = 0.6 oz pur e alcohol) Sex and Gender Information Value Date Recorded Sex Assigned at Not on file Gender Identity Not on file Sexual Orientation Not on file Last Filed Vital Signs Vital Sign Reading Time Taken Comments Blood Pressure 102/78 09/17/2019 9:47 AM COMMUNICATIONS PROFESSOR Pulse 84 08/07/2019 7:48 AM COMMUNICATIONS PROFESSOR per p cp Temperature 36.8 ??C (98.3 ??F) 08/07/2019 7:48 AM CS T per pcp Respiratory Rate 20 03/28/2016 10:1 4 AM CDT per pcp Oxygen Saturation - - Inhaled Oxygen Concentration - - Weight 80.7 kg (177 lb 14.6 oz) 09/17/2019 9:47 AM COMMUNICATIONS PROFESSOR Height 155.5 cm (5' 1.22 ) 09/17/2019 9:47 AM CS T Body Mass Index 33.37 09/17/2019 9:47 AM COMMUNICATIONS PROFESSOR Plan of Treatment Health Maintenance Due Date Last Done Comments PAP SMEAR 2003 HIV SCREENING 2018 HPV VACCINE (1 - 3-dose series) 2018 CHLAMYDIA/GONORRHEA SCREENING 2019 HEPATITIS C SCREENING 07/12/2021 DTAP/TDAP/TD VACCINES (1 - Tdap) 2022 HEPATITIS B VACCINE (1 of 3 - 19+ 3-dose series) 2022 DEPRESSION SCREENING 08/28/2023 COVID-19 VACCINE (1 - 2023-2 5 season) 2024 INFLUENZA VACCINE (#1) 2024 ZOSTER VACCINE (1 of 2) 2053 HIB VACCINE Aged Out No longer eligi ble based on patient's age to complete this topic MENINGOCOCCAL VACCINE Aged Out No rafael vanita eligible based on patient's age to complete this topic PNEUMOCOCCAL VACCINE Aged Out No long er eligible based on patient's age to complete this topic Care Teams Skidder Operator Relationship Specialty Start Date End Date Nelly Marcus MD [address] [place] [address] PCP - General 10/15/19
--- OUTSIDE RECORDS SUMMARY | 2024-08-31 21:54 | XMS_ITS | Patient Health Summary ---
Author Organization [facility] Address [address] [facility] [place] [address] Care Team Providers Care Salesforce Specialist Name Role Phone Nelly Marcus MD Primary Care Provider [phone] Note from [facility],non-owned Affiliates and Associated Physician Practices is amultiple site organization consisting of ambulatory clinics and hospital sitesin [place], [place], [place] and [place]. This disclosure is being madepursuant to the Care Everywhere program and may not contain all information available regarding this patient. Last updated 18.[facility] Allergies No known active allergies Medications * Be aware that medications may not be up to date on this document. Alwaysverify current medications with the patient. * sertraline (ZOLOFT) 25 MG tablet Take 25 mg by mouth once daily * prazosin (MINIPRESS) 2 MG capsule(Started 09/04/2019) Take 2 mg by mouth once daily * famotidine (PEPCID) 20 MG tablet(Started 09/17/2019) Take 1 tablet by mouth 2 times daily,before breakfast and supper 2 refills by 09/16/2020 * polyethylene glycol 3350 (MIRALAX) powder(Started 09/17/2019) Take 17 g by mouth once daily as needed for Constipation 2 refills by 09/16/2020 Active Problems Problem Noted Date Diagnosed Date Blood in stool 09/17/2019 GERD (gastroesophageal reflux disease) 0 Abdominal pain, generalized 09/17/2019 Chronic migraine without aur a without status migrainosus, not intractable 04/27/2016 Headache 04/26/2016 Chest pain Resolved Problems Problem Noted Date Diagnosed Date Resolved Date Constipation 09/17/2019 10/15/2019 Social History Tobacco Use Types Packs/Day Years [...] Comments Blood Pressure 102/78 09/17/2019 9:47 AM PETROLOGIST Pulse 84 08/07/2019 7:48 AM PETROLOGIST per p cp Temperature 36.8 ??C (98.3 ??F) 08/07/2019 7:48 AM CS T per pcp Respiratory Rate 20 03/28/2016 10:1 4 AM CDT per pcp Oxygen Saturation - - Inhaled Oxygen Concentration - - Weight 80.7 kg (177 lb 14.6 oz) 09/17/2019 9:47 AM PETROLOGIST Height 155.5 cm (5' 1.22 ) 09/17/2019 9:47 AM CS T Body Mass Index 33.37 09/17/2019 9:47 AM PETROLOGIST Care Teams Salesforce Specialist Relationship Specialty Start Date End Date Nelly Marcus MD [address] [place] [address] PCP - General 10/15/19
--- OUTSIDE RECORDS SUMMARY | 2024-08-31 21:54 | XMS_ITS | Encounter Summary ---
Author Organization [facility] Address [address] [place] [address] Care Team Providers Care Treatment Plant Operator Name Role Phone Nelly Marcus MD Primary Care Provider [phone] Reason for Visit * Reason Onset Date Comments Reschedule Appointment 11/15/2019 due to CO VID 19 Encounter Details Date Type Department Care Team (Late st Contact Info) Description 11/15/2019 Telephone [facility] Pediatrics - GI [address] [place] [address] Naz Murphy, NUCLEAR REACTOR OPERATOR-SENIOR DENTIST [address] [place] [address] Reschedule Appointment (due to COVID 19) Social History Tobacco Use Types Packs/Day Years Used Date Smoking Tobacco: Never Smokeless Tobacco: Never Alcohol Use Standard Drinks/Week Comments Not Currently 0 (1 standard drink = 0.6 oz pur e alcohol) Sex and Gender Information Value Date Recorded Sex Assigned at Not on file Gender Identity Not on file Sexual Orientation Not on file documented as of this encounter Miscellaneous Notes * Telephone Encounter - Naz Murphy RN - 11/15/2019 12:58 PM CDT Called and spoke to guardian (mom) regarding Rosalba's GI clinic visit scheduled on 11/19/2019. Informed guardian about new protocol in light of COVID19. Guardian confirmed understanding. No additionalquestions at this time. Provided call back number to reschedule, if needed, and department phone number as well. documented in this encounter Plan of Treatment Not on file documented as of this encounter Visit Diagnoses Not on filedocumented in this encounter Care Teams Treatment Plant Operator Relationship Specialty [place] [address] [place], [place] [id number] PCP - General 10/15/19 documented as of this encounter
--- OUTSIDE RECORDS SUMMARY | 2024-08-31 21:54 | XMS_ITS | Encounter Summary ---
Author Organization [facility] Address [address] [place] [address] Care Team Providers Care Optometrist/Practice Owner Name Role Phone Jabari Bynum MD Primary Care Provider [phone] Reason for Visit * Reason Comments Establish Care Abdominal pain after eating, and blood in stools Encounter Details Date Type Department Care Team (Latest Contact Info) Description 09/17/2019 9:35 AM ELECTRIC MOTOR FITTER - 09/17/2019 11:59 PM ELECTRIC MOTOR FITTER Hospital Encounter [facility] Pediatrics - GI [address] [place] [address] Radha Sher M, REMNANT SORTER-SHOT POLISHER [address] [place] [address] Discharge Disposition: Home or Self Care Social [...] on file documented as of this encounter Last Filed Vital Signs Vital Sign Reading Time Taken Comments Blood Pressure 102/78 09/17/2019 9:47 AM ELECTRIC MOTOR FITTER Pulse - - Temperature - - Respiratory Rate - - Oxygen Saturation - - Inhaled Oxygen Concentration - - Weight 80.7 kg (177 lb 14.6 oz) 09/17/2019 9:47 AM ELECTRIC MOTOR FITTER Height 155.5 cm (5' 1.22 ) 09/17/2019 9:47 AM CS T Body Mass Index 33.37 09/17/2019 9:47 AM ELECTRIC MOTOR FITTER Body Mass Index Percentile 97.47% 09/17/2019 9:4 7 AM ELECTRIC MOTOR FITTER Growth Chart: [facility] (Girls, 2- 20 Years) documented in this encounter Discharge Instructions * Patient Instructions* Radha Sher APRN-CNP - 09/17/2019 11:05 AM ELECTRIC MOTOR FITTER Call the GI office ([phone]) if there is no improvement within 2 weeks. Gastroesophageal Reflux (CHRISTOPHER) occurs during or after a meal when stomach contents go back up into the throat. Most children are able to decrease their reflux with lifestyle and diet changes: ?? Avoid eating 1 to 2 hours before bedtime. ?? Elevate the head of the bed 30 degrees. ?? Avoid carbonated drinks and caffeine. ?? Limit spicy or acidic foods such as pizza, tacos, barbecue, citrus, pickles, tomatoes. ?? Avoid large meals prior to exercise. ?? Help your child lose weight if they are overweight ?? Avoid exposure to tobacco smoke Worrisome Symptoms: 1. Vomiting associated with ?? Blood ?? Green or yellow fluid ?? Weight loss or poor weight gain 2. Frequent sensation of food or liquid coming up into the back of the throat or mouth 3. Frequent discomfort in the stomach or chest 4. Swallowing problems ?? Discomfort with the act of swallowing ?? Pain with swallowing ?? Sensation that food gets stuck on the way down ?? 5. Breathing Problems ?? Wheezing ?? Chronic cough or recurrent pneumonia ?? Hoarseness ?? Asthma If you have concerns, speak to your healthcare provider. TRIC MOTOR FITTER documented in this encounter Medications at Time of Discharge Medication Sig Dispensed Refills Start Date End Date famotidine (PEPCID) 20 MG tablet Take 1 tablet by mouth 2 times daily,before breakfast and supper 60 tablet 2 09/17/2019 polyethylene glycol 3350 (MIRALAX) powder Take 17 g by mouth once daily as needed for Constipation 500 g 2 09/17/2019 prazosin (MINIPRESS) 2 MG capsule Take 2 mg by mouth once daily 09/04/2019 sertraline (ZOLOFT) 25 MG tablet Take 25 mg by mouth once daily documented as of this encounter Progress Notes * Radha Sher, REMNANT SORTER-SHOT POLISHER - 09/17/2019 10:33 AM CST Rosalba So was seen in consultation in our [facility] gastroenterology office on 09/17/2019. She is a 14 year old 2 month old She was referred to us by her PCP, Jabari Bynum MD, for evaluation of bloody stools and abdominal pain. She was here with her Father. Rosalba has been having abdominal pain of and on for a couple of years. The pain is generalized and worse after meals. She is nauseated and vomits a couple of times per week. Also describes gastroesophageal reflux without vomiting. Has difficulty swallowing some foods particularly breads. Also has chest pain, heartburn, and decrease in appetite. There has been no weight loss. Rosalba has bowel movements every other day. Stools are runny or hard and painful. She sees bright red blood with her bowel movements once per week. Prior Diagnostic Tests: Reviewed records from PCP: 05/06/19 Renal Ultrasound--normal.. 05/31/19 Vit D 15.7 HGB U9T--KDE Lipid panel--TC 201, TG 186, LDL 120 VLDL 37, HDL 44 CMP--notable for ALT 37 (0-24) otherwise WNL 08/07/19 CBC --notable for elevated PLT 541 otherwise WNL 08/09/19 KUB--WNL 08/13/19 IBD panel Abnormal. ALCA 81 (normal <60) PANCA suggestive of Crohn's disease Father reports she had scope done at [facility] last year. Prior Treatment: No improvement off dairy. Takes ibuprofen a couple of times per week. Review of Systems: Constitutional : (-) fever Eyes : (-) discharge ENT : (-) nasal congestion (-) rhinorrhea (-) sore throat (-) mouth sores CVS : (-) chest pain (-) shortness of breath Respiratory : (-) cough (-) wheezing GI : (See above) : (-) dysuria (-) hematuria DIRECTOR OF INSTITUTIONAL GIVING: (+) No menstrual periods since May. Off BCP due to weight gain. Has seen her toll relief operator. Musculoskeletal : (-) musculoskeletal pain (-) swelling (-) joint pain STAFFING CONSULTANT : (-) altered sensorium Neurological: (-) seizures Hematological : (-) bruising (-) bleeding (-) petechiae Dermatological: (-) rashes Sleep: (-) night time waking (-) snoring (-) daytime somnolence Psychological: Normal development. (+) Depression-on medictaion and in counseling. CURRENT MEDICATIONS: Outpatient Medications Marked as Taking for the 09/17/19 encounter (Hospital Encounter) with Radha Sher APRN-SHOT POLISHER Medication Sig ??? sertraline (ZOLOFT) 25 MG tablet Take 25 mg by mouth once daily ALLERGIES: No Known Allergies PAST MEDICAL HISTORY: Past Medical History: Diagnosis Date ??? Amenorrhea 05/2019 Sees Gynecology ??? Depression ??? FTND (full term normal delivery) wt 6 lb, 9 oz. Past Surgical History: Procedure Laterality Date ??? Tonsillectomy 2013 ??? Tympanostomy 2013 Family History Problem Relation Name Age of Onset ??? Colon polyps Father ??? Other Father IBS, GERD, stomach ulcers, gallstones SOCIAL HISTORY: Social History Social History Narrative Parents have separate home. Rosalba and her younger brother spend equal time with each parent. Does ok in school, ninth grade. PHYSICAL EXAM: BP 102/78 Ht 1.555 m (5' 1.22 ) Wt 80.7 kg (177 lb 14.6 oz) BMI 33.37 kg/m?? 14 %ile (Z= -1.10) based on CDC (Girls, 2-20 Years) Bmajpgo-ovo-imy data based on Stature recorded on 09/17/2019. 96 %ile (Z= 1.74) based on CDC (Girls, 2-20 Years) [id number]-fjc-bgb data using vitals from 09/17/2019. Body mass index is 33.37 kg/m??. 98 %ile (Z= 2.03) based on CDC (Girls, 2-20 Years) BMI-for-age based on BMI available as of 09/17/2019. GENERAL: Alert, obese, white female in no apparent distress. HEENT: Head is atraumatic. Sclera are anicteric. Oral pharynx is clear with moist mucous membranes.Neck is supple with no adenopathy. Trachea is midline. SKIN: Warm and dry. There are no rashes or jaundice. LUNGS: Chest is clear to auscultation without adventitious sounds. CARDIOVASCULAR: Heart has a regular rate and rhythm. Well perfused. ABDOMEN: Abdomen is soft with a large amount of adiposity. There are no visible veins or scars. There are no masses or organomegaly. There is tenderness throughout the abdomen especially in the rightlower quadrant and mid, upper, epigastric region upon palpation. NEUROLOGIC: Normal tone and gait for age. Grossly intact cranial nerves. EXTREMITIES: Grossly normal mobility and strength. Extremities are warm, without edema, cyanosis orclubbing. RECTAL: There is normal tone with no tears, fissures or inflammation of the anus. There is a very small amount of firm stool in the vault. IMPRESSION: 1. Gastroesophageal reflux disease, esophagitis presence not specified 2. Blood in stool 3. Abdominal pain, generalized Considerations include peptic disease (esophagitis, gastritis, ulcers), infection (H pylori), and allergic disease (eosinophilic esophagitis). Also need to consider Inflammatory bowel disease, Celiac disease although father reports she had normal endoscopic evaluation last year. Functional pain is also a consideration. PLAN: Will get records from [facility]. Begin Pepcid 20 mg bid ac. Reviewed behavioral strategies in the management of Gastroesophageal Reflux: Eliminate caffeine. Minimize spicy foods and acidic foods including tomato sauce, citrus fruits, and pickles. Avoid exposure to tobacco smoke. Stop eating 1 hour before bedtime. Can use Miralax 17 grams prn. Rosalba's parents will call our office for test results and if there is no improvement over the next2 weeks. I will see her back in our office in 2 months. Diagnostic considerations were discussed. Plan of care, including education on the safe and effective use of medication(s) was discussed. Rosalba and her father verbalized understanding and agreed with the treatment options discussed. ADDENDUM: Reviewed records from [facility]: 10/26/17 Retroperitoneal US--Rt ovarian cyst. Normal labs including CBC, CMP, ESR, CRP. 12/18/17 EGD and colonoscopy with normal path. TRIC MOTOR FITTER documented in this encounter Plan of Treatment Not on file documented as of this encounter Visit Diagnoses Diagnosis Gastroesophageal reflux disease, esophagitis presence not specified- Primary Blood in stool Abdominal pain, generalized documented in this encounter Care Teams Optometrist/Practice Owner Relationship Specialty Start Date End Date Jabari Bynum MD [address] [place], [place] [id number] PCP - General Pediatrics 09/17/19 10/14/19 documented as of this encounter
--- OUTSIDE RECORDS SUMMARY | 2024-08-31 21:54 | XMS_ITS | Encounter Summary ---
Author Organization [facility] Address [address] [place] [address] Phone Care Team Providers Care Plate Fitter Name Role Phone Radha Martins MD Primary Care Provider Reason for Visit * Reason Comments Follow-up Encounter Details Date Type Department Care Team ([facility] st Contact Info) Description 03/20/2024 2:15 PM CDT Office Visit [facility] Oncology Services [address] [place] [address] Talbert Citlalli Kristyn, [address] [place] [address] Thrombocytosis (Primary Dx); Elevated ferritin; Factor 5 Leiden mutation, heterozygous (HCC) Discharge Disposition: Discharged to home or Selfcare Social History Tobacco Use Types Packs/Day Years Used Date Smoking Tobacco: Never Smokeless Tobacco: Never Alcohol Use Standard Drinks/Week Comments Never 0 (1 standard drink = 0.6 oz pur e alcohol) AUDIT-C Answer Date Recorded Frequency of Alcohol Consumption Never 12/06/2018 Average Number of Drinks Not on file 019 Frequency of Binge Drinking Not on file 11/26 Comments No Sex and Gender Information Value Date Recorded Sex Assigned at Female 10/25/2023 8:55 PM PANTS BUSHELER Legal Sex Female 8:58 PM CDT Gender Identity Female 10/25/2023 8:55 PM PANTS BUSHELER Sexual Orientation Not on file documented as of this encounter Last Filed Vital Signs Vital Sign Reading Time Taken Comments Blood Pressure 127/83 03/20/2024 2:17 PM CDT Pulse 71 03/20/2024 2:17 PM CDT Temperature 37.1 ??C (98.8 ??F) 03/20/2024 2:17 PM CD T Respiratory Rate 20 03/20/2024 2:17 PM CDT Oxygen Saturation 99% 03/20/2024 2:17 PM CDT Inhaled Oxygen Concentration - - Weight 55.5 kg (122 lb 4.8 oz) 03/20/2024 2:17 P M CDT Height 154.9 cm (5' 1 ) 03/20/2024 2:17 PM CDT Body Mass Index 23.11 03/20/2024 2:17 PM CDT documented in this encounter Patient Instructions * Patient Instructions* Citlalli Talbert PAC - 03/20/2024 2:15 PM CDT Recommend beginning enteric coated aspirin 81 mg 1 tablet daily. New CBC in 6 months with office visit approximately 1 week later. Factor 5 Leiden mutation, Heterozygous. This means that only one of the two factor V genes has a mutation. A person with this result has a slightly increased risk for clotting. PLEASE READ: If you are required to have labs/ testing done PRIOR to follow up, please have testing completed nolater than 7 days prior to appointment. If you do not have testing completed prior to your scheduled follow-up appointment you will be asked to reschedule until testing completed All patients are expected to check in with registration 15 minutes prior to all appointments. Patients who arrive 15 minutes or more after their scheduled appointment time may be required to reschedule. Please schedule follow-up in near future to discuss any concerns that were not addressed fully at today's office visit. To continue to provide excellent patient care, you may receive a survey regarding your visit today.To help us serve you better, please complete and return. These surveys are completely anonymous. If you have any concerns/ questions regarding today's visit, please call. If you experience any new or worsening symptoms, please call or go to the emergency department. documented in this encounter Progress Notes * Citlalli Talbert PAC - 03/20/2024 2:15 PM CDT Outpatient Hem/Onc Progress Note Rosalba So is a 18 y.o. female who presents for 4 week follow-up for thrombocytosis, elevated ferritin, family history of anticoagulant disorder, review labs. She is accompanied by her mother today. Continues to have some lower abdominal pain- was evaluated ER yesterday-has not scheduled follow up with PCP. Offers no other concerns or complaints at this time. ALLERGIES: Allergies Allergen Reactions Reglan [Metoclopramide] Anxiety MEDICATIONS: Current Outpatient Medications Medication Sig Dispense Refill buPROPion (Wellbutrin XL) 150 MG XL tablet Take 150 mg by mouth every morning. lurasidone (LATUDA) 40 MG Tablet Take by mouth. ondansetron (ZOFRAN-ODT) 4 MG TABLET DISPERSIBLE Take 1 Tablet by mouth every 8 hours as needed forNausea - 1st line. 10 Tablet 0 ondansetron (ZOFRAN-ODT) 4 MG TABLET DISPERSIBLE Take 1 Tablet by mouth every 8 hours as needed forNausea - 1st line. 10 Tablet 0 prazosin (MINIPRESS) 2 MG Capsule Take 2 mg by mouth nightly. No current facility-administered medications for this visit. PMS/H: Past Medical History Positives Diagnosis Date Anxiety Endometriosis Migraines Past Surgical History: Procedure Laterality Date ADENOIDECTOMY TONSILLECTOMY SOCIAL: Social History Socioeconomic History Marital status: Single Spouse name: Not on file Number of children: Not on file Years of education: Not on file Highest education level: Not on file Occupational History Not on file Tobacco Use Smoking status: Never Smokeless tobacco: Never Vaping Use Vaping status: Every Day Substance and Sexual Activity Alcohol use: Never Drug use: Never Sexual activity: Not on file Other Topics Concern Not on file Social History Narrative Not on file Social Determinants of Health Financial Resource Needs: Not on file Food Insecurity Needs: No Food Insecurity (02/12/2024) Received from [facility] Hunger Vital Sign Worried About Running Out of Food in the Last Year: Never true Ran Out of Food in the Last Year: Never true Transportation Needs: Not on file Physical Activity: Not on file Stress: Not on file Social Integration: Not on file Intimate Partner Violence: Not on file Housing Stability: Not on file FAMILY HX: No family history on file. VITAL SIGNS: Vitals: 03/20/24 1417 BP: 127/83 BP Location: Right Arm BP Position: Sitting BP Cuff Size: Regular Pulse: 71 Resp: 20 Temp: 98.8 ??F (37.1 ??C) SpO2: 99% Weight: 122 lb 4.8 oz (55.5 kg) Height: 5' 1 (1.549 m) GENERAL EXAM: GENERAL: Well developed, well nourished, in no acute distress. AAO x3. Cooperative. HEENT: Normocephalic. PERRLA. Nonicteric. NECK: Supple/ non tender/ full ROM LYMPH NODES: No adenopathy. CARDIOVASCULAR: RRR/ S1S2/ No m/g/c/r. PULMONARY: Respirations easy and regular. Breath sounds clear bilaterally. No rhonchi/ rales/ wheezes. GI: Diffuse lower abdominal tenderness to palpation. MUSCULOSKELETAL: Normal gait and movement of extremities. SKIN: General-warm, pink and dry. No rashes/ lesions. PSYCHIATRIC: Euthymic. Affect congruent with mood. Normal thought process. DATA: CBC: 03/05/2024 WBC 9.34 Hgb 13.8 Hct 41.4 Platelets 652 ANC 6.25 ALC 2.39 CMP: Na 142 K 3.3 Cl 106 CO2 22 Glu 81 BUN 9 Cr 0.83 AST 25 ALT 54 Alk Phos 49 T. bili 0.3 eGFR >60 Iron panel: Iron 102 TSat 23% Transferrin 351 TIBC 439 Ferritin 199 Folate 7.3 Erythropoietin 4.5 RA unless than 13 CRP less than 0.10 CCP less than 0.5 ZACHARIAH negative Immunofixation with SPEP No abnormal protein band is detected by serum protein electrophoresis. Serum immunofixation electrophoresis is negative for monoclonal immunoglobulins K & L light chain Free [place] Lt Chn 3.30 - 19.40 mg/L 20.99 High Free Lambda Lt Chn 5.71 - 26.30 mg/L 19.75 free eugenio abernathy ratio 0.26 - 1.65 1.06 JAK2 Peripheral blood, JAK2 V617F mutation analysis: Negative for JAK2 V617F. FACTOR 5 LEIDEN MUT Normal (Homozygous wild-type genotype) Heterozygous Genotype Abnormal Assessment: Diagnoses and all orders for this visit: Thrombocytosis - COMPLETE BLOOD COUNT (CBC) WITH DIFF; Future Elevated ferritin - FERRITIN; Future Factor 5 Leiden mutation, heterozygous (HCC) Plan: Reviewed and discussed above results. Was advise that heterozygous factor 5 Leiden mutation results does indicate a slight increased riskfor forming clots. Recommend beginning enteric coated aspirin 81 mg 1 tablet daily for elevated platelets. New CBC in 6 months with office visit approximately 1 week later. Diagnoses and all orders for this visit: Thrombocytosis - COMPLETE BLOOD COUNT (CBC) WITH DIFF; Future Elevated ferritin - FERRITIN; Future Factor 5 Leiden mutation, heterozygous (HCC) Return in about 6 months (around 09/20/2024) for Thrombocytosis, Review labs/ tests after completed. The patient was given an opportunity to ask questions, and all questions answered to patient's satisfaction. Patient verbalizes understanding of the plan as outlined above. Patient Instructions Recommend beginning enteric coated aspirin 81 mg 1 tablet daily. New CBC in 6 months with office visit approximately 1 week later. Factor 5 Leiden mutation, Heterozygous. This means that only one of the two factor V genes has a mutation. A person with this result has a slightly increased risk for clotting. PLEASE READ: If you are required to have labs/ testing done PRIOR to follow up, please have testing completed nolater than 7 days prior to appointment. If you do not have testing completed prior to your scheduled follow-up appointment you will be asked to reschedule until testing completed All patients are expected to check in with registration 15 minutes prior to all appointments. Patients who arrive 15 minutes or more after their scheduled appointment time may be required to reschedule. Please schedule follow-up in near future to discuss any concerns that were not addressed fully at today's office visit. To continue to provide excellent patient care, you may receive a survey regarding your visit today.To help us serve you better, please complete and return. These surveys are completely anonymous. If you have any concerns/ questions regarding today's visit, please call. If you experience any new or worsening symptoms, please call or go to the emergency department. documented in this encounter Miscellaneous Notes * Interdisciplinary - Inge Leong - 03/20/2024 2:15 PM CDT The patient reports fatigue, shortness of breath and dizziness at times. Patient reports pain in her back and ribcage. Pain score is 5/10. * Interdisciplinary - Inge Leong - 03/20/2024 2:15 PM CDT AVS printed. Patient will follow up in 6 months with labs 1 week prior in office. documented in this encounter Plan of Treatment Upcoming Encounters Date Type Department Care Team (Late st Contact Info) Description 09/18/2024 1:00 PM PANTS BUSHELER Lab [facility] On[facility] [address] [place] [address] Citlalli Talbert Kristyn, [address] [place] [address] Discharge Disposition: Discharged to home or Selfcare 09/25/2024 2:15 PM PANTS BUSHELER [facility] [address] [place] [address] TalbertCitlalli regalado Kristyn, PAC [address] [place] [address] Discharge Disposition: Discharged to home or Selfcare Scheduled Orders Name Type Priority Associated Diagnoses Orde r Schedule COMPLETE BLOOD COUNT (CBC) WITH DIFF Lab Routine Thrombocytosis Expected: 09/16/2024, Expires: 12/15/2024 FERRITIN Lab Routine Elevated ferritin Expected: 09/16/2024, Expires: 12/15/2024 documented as of this encounter Visit Diagnoses Diagnosis Thrombocytosis- Primary Essential thrombocythemia Elevated ferritin Other abnormal blood chemistry Factor 5 Leiden mutation, heterozygous (HCC) Primary hypercoagulable state documented in this encounter Care Teams Plate Fitter Relationship Specialty Start Date End Date Radha Martins MD [address] [place] [address] PCP - General Family Medicine 01/02/24 documented as of this encounter
--- OUTSIDE RECORDS SUMMARY | 2024-08-31 21:54 | XMS_ITS | Encounter Summary ---
Author Organization [facility] Address [address] [place] [address] Phone Care Team Providers Care National Sales Director Name Role Phone Radha Martins MD Primary Care Provider [phone] Reason for Visit * Radiology Services (Routine) - Closed Specialty Diagnoses / Procedures Referred By Contac t Referred To Contact Radiology Diagnoses Excessive or frequent menstruation Procedures US PELVIS COMPLETE WITH TRANSVAGINAL US PELVIS COMPLETE-NON OB Radha Martins MD [address] [place] [address] Phone: tel: fax: Referral ID Status Reason Start Date Expiration Date Visits Re quested Visits Authorized [id number] Closed 12/15/2023 1 1 Encounter Details Date Type Department Care Team (Latest Contact Info) Description 01/02/2024 7:11 AM CDT - 01/02/2024 11:59 PM CDT Hospital Encounter [facility] Ultrasound [address] [place] [address] Radha Martins MD [address] [place] [address] Discharge Disposition: Discharged to home or Selfcare [...] Sex Assigned at Female 10/25/2023 8:55 PM DOOR SLINGER Legal Sex Female 8:58 PM CDT Gender Identity Female 10/25/2023 8:55 PM DOOR SLINGER Sexual Orientation Not on file documented as of this encounter Medications at Time of Discharge Benzocaine-Menth ol (CEPACOL EXTRA STRENGTH) 15-2.6 MG Lozenge 1 Lozenge by Mouth/Throat route every 4 hours as needed for Other (sore throat). 18 Lozenge 12/06/2018 02/20/2024 hydrOXYzine (VISTARIL) 25 MG Capsule Take 1 Cap by mouth 2 times daily as needed for Itching or Anxiety. 10 Cap 05/29/2019 02/20/2024 metoclopramide (REGLAN) 10 MG Tablet Take 1 Tablet by mouth 4 times daily as needed for Nausea - 1st line. 10 Tablet 04/22/2021 02/20/2024 naproxen (NAPROSYN) 500 MG Tablet Take 1 Tablet by mouth 2 times daily as needed for Moderate or more severe pain. 20 Tablet 10/25/2023 02/20/2024 ondansetron (ZOFRAN) 4 MG Tablet Take 1-2 Tablets by mouth every 8 hours as needed for Nausea - 1st line. 15 Tablet 09/04/2022 02/20/2024 SERTRALINE HCL PO Take 10 mg by mouth daily. 02/20/2024 topiramate (TOPAMAX) 25 MG Tablet Take 25 mg by mouth daily. 02/20/2024 documented as of this encounter Plan of Treatment Upcoming Encounters Date Type Department Care Team (Late st Contact Info) Description 09/18/2024 1:00 PM DOOR SLINGER [facility] [address] [place] [address] Citlalli Talbert Kristyn, [address] [place] [address] Discharge Disposition: Discharged to home or Selfcare 09/25/2024 2:15 PM DOOR SLINGER Office Visit [facility] Services [address] [place] [phone] Citlalli Talbert Kristyn, [address] [place] [address] Discharge Disposition: Discharged to home or Selfcare documented as of this encounter Procedures Procedure Name Priority Date/Time Associated Diagnosis Comments US PELVIS COMPLETE WITH TRANSVAGINAL Routine 01/02/2024 9:07 AM CDT Excessive or frequent menstruation documented in this encounter Results * US PELVIS COMPLETE WITH TRANSVAGINAL (01/02/2024 9:07 AM CDT) Anatomical Region Laterality Modality Abdomen N/A Ultrasound 01/04/2024 8:16 AM CDT Impressions 01/04/2024 8:18 AM CDT IMPRESSION: Simple appearing left ovarian follicle or small cyst. In a reproductive age female, no follow-up is necessary. Otherwise normal pelvic ultrasound. ?? Narrative 01/04/2024 8:18 AM CDT EXAM DESCRIPTION: ?? US PELVIS COMPLETE WITH TRANSVAGINAL REASON FOR STUDY: N92.0 ?? TECHNIQUE: Ultrasound of the pelvic contents was performed with ?? transabdominal and transvaginal ??transducer. ??Grayscale, color Doppler and spectral Doppler techniques were utilized. COMPARISON: Pelvic ultrasound 03/09/2023. ??Correlation with CT abdomen and pelvis performed 03/09/2023. FINDINGS: UTERUS: The uterus measures ??5.7 x 3.4 x 3.8 ??cm. The endometrial stripe measures ??9.1 ??mm in thickness. ??There is no uterine mass. ?? There are nabothian cysts in the uterine cervix. RIGHT OVARY: The right ovary measures ??2.7 x 2.4 x 3.2 ??cm. ?? Arterial and venous blood flow is demonstrated to the ovary. ?? There are small ovarian follicles. LEFT OVARY: The left ovary measures ??2.1 x 2.6 x 4.7 ??cm. ?? Arterial and venous blood flow is demonstrated to the ovary. ?? There is a simple appearing 2.4 cm ovarian follicle or small cyst. PELVIC FLUID: ??There is no significant free pelvic fluid. THIS IS AN ELECTRONICALLY VERIFIED FINAL REPORT 01/04/2024 8:16 AM - Electronically signed by ??Josué Dahl M.D., JR: D: ??01/04/2024 8:16 AM T: ??01/04/2024 8:16 AM Report ID: [id number] Reading Location: ??[id number] Procedure Note Josué Dahl MD - 01/04/2024 EXAM DESCRIPTION: US PELVIS COMPLETE WITH TRANSVAGINAL REASON FOR STUDY: N92.0 TECHNIQUE: Ultrasound of the pelvic contents was performed with transabdominal and transvaginal transducer. Grayscale, color Doppler and spectral Doppler techniques were utilized. COMPARISON: Pelvic ultrasound 03/09/2023. Correlation with CT abdomen and pelvis performed 03/09/2023. FINDINGS: UTERUS: The uterus measures 5.7 x 3.4 x 3.8 cm. The endometrial stripe measures 9.1 mm in thickness. There is no uterine mass. There are nabothian cysts in the uterine cervix. RIGHT OVARY: The right ovary measures 2.7 x 2.4 x 3.2 cm. Arterial and venous blood flow is demonstrated to the ovary. There are small ovarian follicles. LEFT OVARY: The left ovary measures 2.1 x 2.6 x 4.7 cm. Arterial and venous blood flow is demonstrated to the ovary. There is a simple appearing 2.4 cm ovarian follicle or small cyst. PELVIC FLUID: There is no significant free pelvic fluid. THIS IS AN ELECTRONICALLY VERIFIED FINAL REPORT 01/04/2024 8:16 AM - Electronically signed by Josué Dahl M.D., JR: Report ID: [id number] Reading Location: [id number] IMPRESSION: Simple appearing left ovarian follicle or small cyst. In a reproductive age female, no follow-up is necessary. Otherwise normal pelvic ultrasound. Radha Martins MD [facility] ORDERABLES Final Resul t documented in this encounter Visit Diagnoses Diagnosis Excessive or frequent menstruation documented in this encounter Care Teams National Sales Director Relationship Specialty Start Date End Date Radha Martins MD [address] [place] [id number] PCP - General Family Medicine 01/02/24 documented as of this encounter
--- OUTSIDE RECORDS SUMMARY | 2024-08-31 21:54 | XMS_ITS | Encounter Summary ---
Author Organization [facility] Address [address] [place] [address] Care Team Providers Care Spine Nurse Name Role Phone Nelly Marcus MD Primary Care Provider [phone] Reason for Visit * Reason Comments Headache follow up visit Encounter Details Date Type Department Care Team (Latest Contact Info) Description 07/27/2016 3:00 PM TOE TRIMMER - 07/27/2016 11:59 PM [facility] Hospital Encounter [facility] - Neurology [address] [place] [address] Darwin Leal MD [address] [place] [address] Discharge Disposition: Home or Self Care Social [...] Sign Reading Time Taken Comments Blood Pressure 126/80 07/27/2016 3:14 PM TOE TRIMMER Pulse - - Temperature - - Respiratory Rate - - Oxygen Saturation - - Inhaled Oxygen Concentration - - Weight 53.9 kg (118 lb 12.2 oz) 07/27/2016 3:14 PM TOE TRIMMER Height 148.6 cm (4' 10.5 ) 07/27/2016 3:14 PM CS T Body Mass Index 24.4 07/27/2016 3:14 PM TOE TRIMMER Body Mass Index Percentile 91.48% 07/27/2016 3:1 4 PM TOE TRIMMER Growth Chart: [facility] (Girls, 2- 20 Years) documented in this encounter Discharge Instructions * Patient Instructions* Darwin Leal MD - 07/27/2016 3:37 PM TOE TRIMMER We are glad to hear the headaches are better controlled. Continue Topamax 25 mg, nightly. Continue to drink at least 8 glasses of water a day (64 oz), get at least 8 hours of sleep, exercise regularly, and eat 3 regular meals a day without skipping any. Continue Maxalt 5 mg as needed for severe migraines. Follow up in 6 months. Should headaches continue to be well controlled at that time, may consider weaning you off the daily headache medication. TRIMMER documented in this encounter Medications at Time of Discharge Medication Sig Dispensed Refills Start Date End Date Ocfjbvg-Orebxqzjomdrz-Xj ffeine (EXCEDRIN MIGRAINE PO) Take 2 Tabs by mouth 020 rizatriptan (MAXALT) 5 MG tablet Take 1 Tab by mouth once as needed for Migraine (Do not take more than two in 24 hours.) 8 Tab 5 07/27/2016 09/17/2019 topiramate (TOPAMAX) 25 MG tablet Take 1 Tab by mouth at bedtime 30 Tab 5 07/27/2016 09/17/2019 documented as of this encounter Progress Notes * Umm Granados MD - 07/27/2016 3:08 PM CST Images from the original note were not included. Pediatric Neurology Clinic follow-up Visit Patient Name: Rosalba So : 2005 Date of Encounter: 07/27/2016 I had the pleasure of seeing your patient, Rosalba in the Neurology Clinic at [facility]. She was accompanied by her Father. Rosalba is a 11 y.o. female who presents today for follow up of migraine headaches. They initially started around 2013 and were associated with nausea, phonophobia, photophobia, and symptoms worseningwith activity. Would have occasional arm tingling and light headedness associated with headaches. Mother has a history of migraines. She was started on Topamax 25 mg nightly in addition to Maxalt 5 mg PRN for severe migraines. Interval History Since her last visit in March, Rosalba has done very well. She remains on Topamax 25 mg, nightly and Maxalt 5 mg PRN. In the last 3 months she has had only 3 severe migraines which required Maxalt. She does not take any more Excedrin and other than missing Topamax 2 times, is compliant. Has not hadany numbness/tingling, weight loss, or flank pain. She is currently in the 6th grade and continues to do well with no noticeable increase in difficulty due to worse mentation. She continues to have poor headache hygiene in that she does not drink much water and regularly skips meals. Sleeps well with no daytime fatigue. No social stressors. Past Medical History Medical History: None Current Medications ??? topiramate (TOPAMAX) 25 MG tablet Take 1 Tab by mouth at bedtime ??? rizatriptan (MAXALT) 5 MG tablet Take 1 Tab by mouth once as needed for Migraine (Do not take more than two in 24 hours.) ??? Vjvjfls-Dulxaizwnohrx-Mdjashvs (EXCEDRIN MIGRAINE PO) Take 2 Tabs by mouth Allergies No Known Allergies Review of Systems Review of Systems Constitutional: Negative for fever. HENT: Negative for congestion and sore throat. Eyes: Negative for double vision. Respiratory: Negative for cough, shortness of breath and wheezing. Cardiovascular: Negative for chest pain and palpitations. Gastrointestinal: Negative for abdominal pain, constipation, diarrhea, nausea and vomiting. Musculoskeletal: Negative for back pain and falls. Skin: Negative for rash. Neurological: Positive for headaches. Negative for tingling, speech change, focal weakness, seizures, loss of consciousness and weakness. Vital Signs Height: Height: 148.6 cm (4' 10.5 ) Weight: Weight: 53.9 kg (118 lb 12.2 oz) 77 %ile (Z= 0.73) based on CDC 2-20 Years rejplk-kln-gom data using vitals from 04/27/2016 from contact on 04/27/2016. Blood Pressure: BP Readings from Last 1 Encounters: 07/27/16 126/80 BP: 126/80 Blood pressure percentiles are 98 % systolic and 94 % diastolic based on NHBPEP's 4th Report. Blood pressure percentile targets: 90: 119/77, 95: 122/80, 99 + 5 mmH/93. Body mass index is 24.4 kg/(m^2). 11 %ile (Z= -1.25) based on [facility] 2-20 Years kpnnfhl-sfs-boq data using vitals from 07/27/2016. 77 %ile (Z= 0.75) based on [facility] 2-20 Years hcbkqz-bek-xcf data using vitals from 07/27/2016. 91 %ile (Z= 1.37) based on [facility] 2-20 Years BMI-for-age data using vitals from 07/27/2016. Physical Exam General: well developed, well nourished CV: RRR Resp: CTAB Neurological Exam: MS: awake, alert, appropriate for age Cranial Nerves: II: Visual bañuelos intact to confrontation, Fundoscopy shows sharp discs bilaterally III:PERRL 4-3 mm bilaterally III,IV,: EOMI, no ptosis, no nystagmus V: Facial sensation intact and symmetric VII: Facial expressions symmetric VIII: Hearing intact to finger rub bilaterally IX: Palate elevates symmetrically X: Uvula midline XI: Shoulder shrug strong bilaterally XII: Tongue protrudes midline Motor: Abnormal Movements: none Bulk: normal Tone: normal Reflexes: 2+ throughout, plantar reflex downgoing bilaterally Strength: 5/5 in all extremities Sensory: Intact to light touch throughout Cerebellar: Normal FNF and ANA's. Steady in Romberg stance Gait: Normal toe, heel, and tandem gait. Assessment and Plan Chronic migraine without aura without status migrainosus, not intractable Assessment: 11 year old girl with chronic migraines who has nausea, phonophobia, photophobia, and worsening with activity associated with her headaches. Was started on Topamax 25 mg, nightly and thishas decreased the frequency from 2 every week [...] this over the phone if he desires. Follow-Up Return in about 6 months (around 01/24/2017). Darwin Leal MD CC: Nelly Marcus MD [facility] [address] Date: 07/27/2016 3:57 PM Peds Neuro Attending Note JOSE: 07.27.2016 Pt seen and examined with PGY [address] Leal - please see above note for details. Agree with note/plan as above. Pt is a 11 y/o brought by father (historian) for follow up of her chronic migraines- last seen hereabout 3 months ago and started on Topamax 25 mg HS and doing well - tolerating med and no side effects. Continues to have lifestyle issues as detailed above with hydration etc. No school related concerns reported. No concerns regarding mood. No worsening of headaches with menstrual period. OE: BP 126/80 Wt 53.9 kg (118 lb 12.2 oz) BMI 24.4 kg/m2 Wt Readings from Last 3 Encounters: 07/27/16 53.9 kg (118 lb 12.2 oz) (77 %, Z= 0.75)* 04/27/16 52.5 kg (115 lb 11.9 oz) (77 %, Z= 0.73)* 03/28/16 51.7 kg (114 lb) (76 %, Z= 0.69)* * Growth percentiles are based on CDC 2-20 Years data. Ht Readings from Last 3 Encounters: 07/27/16 1.486 m (4' 10.5 ) (11 %, Z= -1.25)* 04/27/16 1.509 m (4' 11.41 ) (23 %, Z= -0.73)* 03/28/16 0.991 m (3' 3 ) (<1 %, Z= -7.47)* * Growth percentiles are based on CDC 2-20 Years data. Body mass index is 24.4 kg/(m^2). 91 %ile (Z= 1.37) based on CDC 2-20 Years BMI-for-age data using vitals from 07/27/2016. 77 %ile (Z= 0.75) based on CDC 2-20 Years oxgyia-siv-iue data using vitals from 07/27/2016. 11 %ile (Z= -1.25) based on CDC 2-20 Years vhimjse-sfa-xyl data using vitals from 07/27/2016. She is alert, normal mood, affect and speech. Normal CN (incl fundi with sharp flat discs b/l), motor, DTR's and gait. Discussed headaches, lifestyle modifications and continuation of Topamax for now; anticipate wean off med at end of school year. Father understands and agrees with the plan. TRIMMER documented in this encounter Plan of Treatment Not on file documented as of this encounter Visit Diagnoses Diagnosis Chronic migraine without aura without status migrainosus, not intractable Chronic migraine without aura, without mention of intractable migraine without mention of status migrainosus * Assessment & Plan Note - Darwin Leal MD - 07/27/2016 3:54 PM CSTAssociated Problem(s): Chronic migraine without aura without status migrainosus, not intractable Assessment: 11 year old girl with chronic migraines who has nausea, phonophobia, photophobia, and worsening with activity associated with her headaches. Was started on Topamax 25 mg, nightly and thishas decreased the frequency from 2 every week [...] this over the phone if he desires. TRIMMER documented in this encounter Care Teams Spine Nurse Relationship Specialty Start Date End Date Nelyl Marcus MD [facility] [place] [id number] PCP - General Pediatrics 03/30/16 09/16/19 documented as of this encounter
--- OUTSIDE RECORDS SUMMARY | 2024-08-31 21:54 | XMS_ITS | Encounter Summary ---
Author Organization [facility] [employer] Care Team Providers Care Glass Maker Name Role Phone Radha Martins MD Primary Care Provider [phone] Encounter Details Date Type Department Care Team (Latest Contact Info) Description 02/27/2024 Travel Social History Tobacco Use Types Packs/Day [...] Sex Assigned at Female 10/25/2023 8:55 PM TACTICAL AIR DEFENSE CONTROLLER Legal Sex Female 8:58 PM CDT Gender Identity Female 10/25/2023 8:55 PM TACTICAL AIR DEFENSE CONTROLLER Sexual Orientation Not on file documented as of this encounter Plan of Treatment Upcoming Encounters Date Type Department Care Team (Late st Contact Info) Description 09/18/2024 1:00 PM TACTICAL AIR DEFENSE CONTROLLER [facility] [address] [place] [address] Citlalli Talbert, [address] [place] [address] Discharge Disposition: Discharged to home or Selfcare 09/25/2024 2:15 PM TACTICAL AIR DEFENSE CONTROLLER Office Visit [facility] [address] [place] [address] Citlalli Talbert Kristyn, [address] [place] [address] Discharge Disposition: Discharged to home or Selfcare documented as of this encounter Visit Diagnoses Not on filedocumented in this encounter Additional Health Concerns Infection Onset Date Last Indicated Resolved Time COVID - 19 02/27/2024 02/27/2024 02/27/2024 10:2 8 AM CDT documented as of this encounter Care Teams Glass Maker Relationship Specialty Start Date End Date Radha Martins MD [address] [place] [address] PCP - General Family Medicine 01/02/24 documented as of this encounter
--- OUTSIDE RECORDS SUMMARY | 2024-08-31 21:54 | XMS_ITS | Referral Summary ---
Author Organization [facility] Address [address] [place] [address] Care Team Providers Care Cloth Finishing Range Back Tender Name Role Phone Nelly Marcus MD Primary Care Provider [phone] Source Comments [facility],non-owned Affiliates and Associated Physician Practices is amultiple site organization consisting of ambulatory clinics and hospital sitesin [place], [place]. This disclosure is being madepursuant to the Care Everywhere program and may not contain all information available regarding this patient. Last updated 18.[facility] Allergies No known active allergies Medications * [...] 04/27/2016 Assessment & Plan (07/27/2016 3:57 PM SEATING CAPTAIN): Assessment: 11 year old girl with chronic [...] Comments Blood Pressure 102/78 09/17/2019 9:47 AM SEATING CAPTAIN Pulse 84 08/07/2019 7:48 AM SEATING CAPTAIN per p cp Temperature 36.8 ??C (98.3 ??F) 08/07/2019 7:48 AM CS T per pcp Respiratory Rate 20 03/28/2016 10:1 4 AM CDT per pcp Oxygen Saturation - - Inhaled Oxygen Concentration - - Weight 80.7 kg (177 lb 14.6 oz) 09/17/2019 9:47 AM SEATING CAPTAIN Height 155.5 cm (5' 1.22 ) 09/17/2019 9:47 AM CS T Body Mass Index 33.37 09/17/2019 9:47 AM SEATING CAPTAIN Plan of Treatment Not on file Care Teams Cloth Finishing Range Back Tender Relationship Specialty Start Date End Date Nelly Marcus MD [address] [place] [address] PCP - General 10/15/19
--- OUTSIDE RECORDS SUMMARY | 2024-08-31 21:54 | XMS_ITS | Encounter Summary ---
Author Organization [facility] Address [address] [place] [address] Phone Care Team Providers Care Child Psychometrist Name Role Phone Provider, None Primary Care Provider Unavailabl e Encounter Details Date Type Department Care Team (Late st Contact Info) Description 12/15/2023 Transcribe Orders [facility] Scheduling [address] [place] [phone] Radha Martins MD [address] [place] [address] Excessive or frequent menstruation (Primary Dx) Social History Tobacco Use Types Packs/Day Years [...] Sex Assigned at Female 10/25/2023 8:55 PM DIRECTOR OF MEDIA Legal Sex Female 8:58 PM CDT Gender Identity Female 10/25/2023 8:55 PM DIRECTOR OF MEDIA Sexual Orientation Not on file documented as of this encounter Plan of Treatment Upcoming Encounters Date Type Department Care Team (Late st Contact Info) Description 09/18/2024 1:00 PM DIRECTOR OF MEDIA Lab [facility] On[facility] Services [address] [place] [phone] TalbertCitlalli regalado Kristyn, [address] [place] [address] Discharge Disposition: Discharged to home or Selfcare 09/25/2024 2:15 PM DIRECTOR OF MEDIA Office Visit [facility] [address] [place] [address] Citlalli Talbert, [address] [place] [address] Discharge Disposition: Discharged to home or Selfcare documented as of this encounter Visit Diagnoses Diagnosis Excessive or frequent menstruation- Primary documented in this encounter Care Teams Child Psychometrist Relationship Specialty Start Date End Date Provider, None [place] PCP - General 09/04/22 01/01/24 documented as of this encounter
--- OUTSIDE RECORDS SUMMARY | 2024-08-31 21:54 | XMS_ITS | Encounter Summary ---
Author Organization [facility] [employer] Care Team Providers Care Transmission Mechanic Name Role Phone Radha Martins MD Primary Care Provider [phone] Encounter Details Date Type Department Care Team (Latest Contact Info) Description 02/20/2024 Travel Social History Tobacco Use Types Packs/Day [...] Sex Assigned at Female 10/25/2023 8:55 PM JBOSS ARCHITECT Legal Sex Female 8:58 PM CDT Gender Identity Female 10/25/2023 8:55 PM JBOSS ARCHITECT Sexual Orientation Not on file documented as of this encounter Plan of Treatment Upcoming Encounters Date Type Department Care Team (Late st Contact Info) Description 09/18/2024 1:00 PM JBOSS ARCHITECT [facility] [address] [place] [address] Citlalli Talbert, [address] [place] [address] Discharge Disposition: Discharged to home or Selfcare 09/25/2024 2:15 PM JBOSS ARCHITECT Office Visit [facility] [address] [place] [address] Citlalli Talbert Kristyn, [address] [place] [address] Discharge Disposition: Discharged to home or Selfcare documented as of this encounter Visit Diagnoses Not on filedocumented in this encounter Care Teams Transmission Mechanic Relationship Specialty Start Date End Date Radah Martins MD [address] [place] [address] PCP - General Family Medicine 01/02/24 documented as of this encounter
--- OUTSIDE RECORDS SUMMARY | 2024-08-31 21:54 | XMS_ITS | Encounter Summary ---
Author Organization [facility] Address [address] [place] [address] Care Team Providers Care Manager Ems Name Role Phone Nelly Marcus MD Primary Care Provider [phone] Reason for Visit * Reason Onset Date Comments Appointment 09/04/2020 Encounter Details Date Type Department Care Team (Late st Contact Info) Description 09/04/2020 Telephone [facility] [address] [place] [id number] [address], [facility] Update Information Appointment Social History Tobacco Use Types Packs/Day Years [...] COVID-19? No / Unsure 09/04/2020 3:22 PM HOOP FLARING MACHINE OPERATOR HELPER documented as of this encounter Miscellaneous Notes * Telephone Encounter - ShannonMartinrico Queen - 09/04/2020 3:33 PM HOOP FLARING MACHINE OPERATOR HELPER Spoke with mother and she agreed to new patient appointment with BERLIN Regalado via video on 09/07/2020. FLARING MACHINE OPERATOR HELPER * Telephone Encounter - Jane Eduardo RN - 09/04/2020 1:45 PM CST Referral received to [facility] Neurology. Referral Reason: chronic headaches Referring Source: [employer] Insurance Carrier: [place] Scheduling Plan: General Neuro: Jayson FLARING MACHINE OPERATOR HELPER documented in this encounter Plan of Treatment Not on file documented as of this encounter Visit Diagnoses Not on filedocumented in this encounter Care Teams Manager Ems Relationship Specialty Start Date End Date Nelly Marcus MD [address] [place] [id number] PCP - General 10/15/19 documented as of this encounter
--- OUTSIDE RECORDS SUMMARY | 2024-08-31 21:54 | XMS_ITS | Encounter Summary ---
Author Organization [facility] [employer] Care Team Providers Care Foam Gun Operator Name Role Phone Radha Martins MD Primary Care Provider [phone] Encounter Details Date Type Department Care Team (Latest Contact Info) Description 03/19/2024 Travel Social History Tobacco Use Types Packs/Day [...] Sex Assigned at Female 10/25/2023 8:55 PM BRILLIANDEER LOOPER Legal Sex Female 8:58 PM CDT Gender Identity Female 10/25/2023 8:55 PM BRILLIANDEER LOOPER Sexual Orientation Not on file documented as of this encounter Plan of Treatment Upcoming Encounters Date Type Department Care Team (Late st Contact Info) Description 09/18/2024 1:00 PM BRILLIANDEER LOOPER [facility] [address] [place] [address] Citlalli Talbert, [address] [place] [address] Discharge Disposition: Discharged to home or Selfcare 09/25/2024 2:15 PM BRILLIANDEER LOOPER Office Visit [facility] [place] [facility] [address] [place] [address] Citlalli Talbert Kristyn, [address] [place] [address] Discharge Disposition: Discharged to home or Selfcare documented as of this encounter Visit Diagnoses Not on filedocumented in this encounter Care Teams Foam Gun Operator Relationship Specialty Start Date End Date Radha Martins MD [address] [place] [address] PCP - General Family Medicine 01/02/24 documented as of this encounter
--- OUTSIDE RECORDS SUMMARY | 2024-08-31 21:54 | XMS_ITS | Encounter Summary ---
Author Organization [facility] [email or web address] Care Team Providers Care Electrical And Instrument Mechanic Name Role Phone Radha Martins MD Primary Care Provider [phone] Encounter Details Date Type Department Care Team (Latest Contact Info) Description 03/05/2024 Travel Social History Tobacco Use Types Packs/Day [...] Assigned at Female 10/25/2023 8:55 PM DOOR CLOSER Legal Sex Female 8:58 PM CDT Gender Identity Female 10/25/2023 8:55 PM DOOR CLOSER Sexual Orientation Not on file documented as of this encounter Plan of Treatment Upcoming Encounters Date Type Department Care Team (Late st Contact Info) Description 09/18/2024 1:00 PM DOOR CLOSER [facility] [address] [place] [address] Citlalli Talbert, [address] [place] [address] Discharge Disposition: Discharged to home or Selfcare 09/25/2024 2:15 PM DOOR CLOSER Office Visit [facility] [place] [facility] [address] [place] [address] Citlalli Talbert Kristyn, [address] [place] [address] Discharge Disposition: Discharged to home or Selfcare documented as of this encounter Visit Diagnoses Not on filedocumented in this encounter Care Teams Electrical And Instrument Mechanic Relationship Specialty Start Date End Date Radha Martins MD [address] [place] [address] PCP - General Family Medicine 01/02/24 documented as of this encounter
--- OUTSIDE RECORDS SUMMARY | 2024-08-31 21:54 | XMS_ITS | Encounter Summary ---
Author Organization [facility] [employer] Care Team Providers Care Control Panel Operator Name Role Phone Radha Martins MD Primary Care Provider [phone] Encounter Details Date Type Department Care Team (Latest Contact Info) Description 01/02/2024 Travel Social History Tobacco Use Types Packs/Day [...] Sex Assigned at Female 10/25/2023 8:55 PM RADIOLOGICAL DEFENSE OFFICER Legal Sex Female 8:58 PM CDT Gender Identity Female 10/25/2023 8:55 PM RADIOLOGICAL DEFENSE OFFICER Sexual Orientation Not on file documented as of this encounter Plan of Treatment Upcoming Encounters Date Type Department Care Team (Late st Contact Info) Description 09/18/2024 1:00 PM RADIOLOGICAL DEFENSE OFFICER [facility] [address] [place] [address] Citlalli Talbert, [address] [place] [address] Discharge Disposition: Discharged to home or Selfcare 09/25/2024 2:15 PM RADIOLOGICAL DEFENSE OFFICER Office Visit [facility] [place] [facility] Services [address] [place] [address] Citlalli Talbert Kristyn, [address] [place] [address] Discharge Disposition: Discharged to home or Selfcare documented as of this encounter Visit Diagnoses Not on filedocumented in this encounter Care Teams Control Panel Operator Relationship Specialty Start Date End Date Radha Martins MD [address] [place] [address] PCP - General Family Medicine 01/02/24 documented as of this encounter
--- OUTSIDE RECORDS SUMMARY | 2024-08-31 21:54 | XMS_ITS | Clinical Summary ---
Author Organization [facility] Address [address] [place] [address] Phone Care Team Providers Care Chart Collector Name Role Phone Radha Martins MD Primary Care Provider Allergies Active Allergy Reactions Criticality Noted Date Comments Metoclopramide Anxiety 09/04/2022 Medications buPROPion (Wellbutrin XL) 150 MG XL tablet Take 150 mg by mouth every morning. Active prazosin (MINIPRESS) 2 MG Capsule Take 2 mg by mouth nightly. Active lurasidone (LATUDA) 40 MG Tablet Take by mouth. Active ondansetron (ZOFRAN-ODT) 4 MG TABLET DISPERSIBLE Take 1 Tablet by mouth every 8 hours as needed for Nausea - 1st line. 10 Tablet 02/27/2024 Active ondansetron (ZOFRAN-ODT) 4 MG TABLET DISPERSIBLE Take 1 Tablet by mouth every 8 hours as needed for Nausea - 1st line. 10 Tablet 03/19/2024 Active Active Problems Problem Noted Date Diagnosed Date Factor 5 Leiden mutation, heterozygous Thrombocytosis 02/21/2024 Family history of blood coagulation disorder Elevated ferritin 02/21/2024 Social History Tobacco Use Types Packs/Day Years Used Date Smoking Tobacco: Never Smokeless Tobacco: Never Tobacco Cessation:Counseling Given: Not Answered Alcohol Use Standard Drinks/Week Comments Never 0 (1 standard drink = 0.6 oz pur e alcohol) AUDIT-C Answer Date Recorded Frequency of Alcohol Consumption Never 12/06/2018 Average Number of Drinks Not on file 04/11/2 019 Frequency of Binge Drinking Not on file 11/26 Comments No Sex and Gender Information Value Date Recorded Sex Assigned at Female 10/25/2023 8:55 PM WOODS SUPERINTENDENT Legal Sex Female 8:58 PM CDT Gender Identity Female 10/25/2023 8:55 PM WOODS SUPERINTENDENT Sexual Orientation Not on file Last Filed [...] Mass Index 23.11 03/20/2024 2:17 PM CDT Plan of Treatment Upcoming Encounters Date Type Department Care Team (Late st Contact Info) Description 09/18/2024 1:00 PM WOODS SUPERINTENDENT [facility] [place] [facility] [address] [place] [address] Citlalli Talbert January, [address] [place] [address] Discharge Disposition: Discharged to home or Selfcare 09/25/2024 2:15 PM WOODS SUPERINTENDENT [facility] [place] [facility] [address] [place] [address] Citlalli Talbert January, [address] [place] [address] Discharge Disposition: Discharged to home or Selfcare Health Maintenance Due Date Last Done Comments Hepatitis C Virus (HCV) Screening 2003 Meningococcal B Immunization (1 of 2 - Standard) 2019 Influenza Immunization (#1) 2024 05/31/2016, 1 SARS-COV-2 Immunization ( season) 2024 Pap Smear 2024 Respiratory Syncytial Virus (RSV) Immunization (Adult) (1 - 1-dose 75+ series) 2078 Hepatitis B Immunization Completed 004, 2003, 2003, Additional history exists Pneumococcal Immunization Combined Aged Out 06/21/2005, 05/23/2004, 05/20/2004, Additional history exists No longer eligible based on patient's age to complete this topic Measles Mumps Rubella (MMR) Immunization Discontinued 09/03/2007, 07/27/2004 Polio (IPV) Immunization Discontinued 008, 05/20/2004, 2003, Additional history exists Varicella Immunization Discontinued 09/03/2007, 2003 Hepatitis A Immunization Discontinued 03/25/2009, 03/29 DTaP/Tdap/Td Immunization Discontinued 2015, 09/03/2007, 06/21/2005, Additional history exists TdaP Immunization Completed 03/30/2016 Human Papillomavirus (HPV) Immunization Completed 05/15/2017, 05/31/2016, 03/30/2016 Meningococcal Immunization (ACWY) Completed 05/26/2021, 03/30/2016 Rotavirus Immunization Aged Out No lo nger eligible based on patient's age to complete this topic Insurance MEDICAID [employer] [address] [place] [id number] MEDICAID [facility] [employer] MEDICAID [facility] [employer] Care Teams Chart Collector Relationship Specialty Start Date End Date Radha Martins MD [address] [place] [address] PCP - General Family Medicine 01/02/24
--- OUTSIDE RECORDS SUMMARY | 2024-08-31 21:54 | XMS_ITS | Encounter Summary ---
Author Organization [facility] Address [address] [place] [address] Phone Care Team Providers Care Director Learning Services Name Role Phone Radha Martins MD Primary Care Provider [phone] Reason for Visit * Reason Comments Abdominal Pain Back Pain Encounter Details Date Type Department Care Team ([facility] st Contact Info) Description 03/19/2024 1:49 PM CDT - 03/19/2024 5:49 PM CDT Emergency [facility] Emergency [address] [place] [address] Fariba Reddy, PAC [address] [place] [address] RUQ abdominal pain Discharge Disposition: Discharged to home or Selfcare [...] Sex Assigned at Female 10/25/2023 8:55 PM PCB DESIGNER Legal Sex Female 8:58 PM CDT Gender Identity Female 10/25/2023 8:55 PM PCB DESIGNER Sexual Orientation Not on file documented as of this encounter Last Filed Vital Signs Vital Sign Reading Time Taken Comments Blood Pressure 138/64 03/19/2024 5:30 PM CDT Pulse 72 03/19/2024 5:30 PM CDT Temperature 35.8 ??C (96.5 ??F) 03/19/2024 1:52 PM CD T Respiratory Rate 15 03/19/2024 1:52 PM CDT Oxygen Saturation 100% 03/19/2024 5:30 PM CDT Inhaled Oxygen Concentration - - Weight 54.4 kg (120 lb) 03/19/2024 1:52 PM CDT Height 154.9 cm (5' 1 ) 03/19/2024 1:52 PM CDT Body Mass Index 22.67 03/19/2024 1:52 PM CDT documented in this encounter Discharge Instructions * Discharge Instructions* Fariba Reddy PAC - 03/19/2024 4:55 PM CDT Please follow up with your primary care provider to further discuss your RUQ abdominal pain and with your obgyn due to the ovarian cyst. Return for reevaluation if your symptoms change or worsen. documented in this encounter Medications at Time of Discharge buPROPion (Wellbutrin XL) 150 MG XL tablet Take 150 mg by mouth every morning. lurasidone (LATUDA) 40 MG Tablet Take by mouth. ondansetron (ZOFRAN-ODT) 4 MG TABLET DISPERSIBLE Take 1 Tablet by mouth every 8 hours as needed for Nausea - 1st line. 10 Tablet 03/19/2024 ondansetron (ZOFRAN-ODT) 4 MG TABLET DISPERSIBLE Take 1 Tablet by mouth every 8 hours as needed for Nausea - 1st line. 10 Tablet 02/27/2024 prazosin (MINIPRESS) 2 MG Capsule Take 2 mg by mouth nightly. documented as of this encounter ED Notes * Zuri Whaley RN - 03/19/2024 5:48 PM CDT Patient discharged. Discharge instructions and patient educational material reviewed with patient; questions and concerns addressed; patient verbalizes understanding, using teach back. Patient discharged per ambulatory mode with self as responsible libertarian. SL D/C'ed with Ted cath intact. * Zuri Whaley RN - 03/19/2024 5:03 PM CDT Patient is resting in room with call light at bedside. Patient informed about wait time and verbalizes understanding. Patient denies needs at this time and verbalizes understanding that RN will complete hourly rounding. * Zuri Whaley RN - 03/19/2024 4:03 PM CDT Patient is resting in room with call light at bedside. Patient informed about wait time and verbalizes understanding. Patient denies needs at this time and verbalizes understanding that RN will complete hourly rounding. * Zuri Whaley RN - 03/19/2024 3:03 PM CDT Pt medicated per provider orders. Pt educated on intended effects and side effects of medication and verbalized understanding. Pt able to provide teach- back of education. * Fariba Reddy PAC - 03/19/2024 2:42 PM CDT Chief Complaint Patient presents with Abdominal Pain Back Pain HPI Rosalba So is a 18 y.o. female who presents from home due to RUQ abdominal pain which started four days ago. Patient states she has started vomiting and has noticed small amount of bright red blood in her emesis at times. She has also noticed pressure with urination. She states she recently took a laxative because of constipation and had a bowel movement yesterday. Patient denies a fever, diarrhea, blood in her stool, chest pain, or sob. Her LMP was 03/06/24. She denies a hx of abdominal related problems. Her provider is Dr. Martins. No current facility-administered medications for this encounter. Current Outpatient Medications Medication Sig Dispense Refill buPROPion (Wellbutrin XL) 150 MG XL tablet Take 150 mg by mouth every morning. lurasidone (LATUDA) 40 MG Tablet Take by mouth. ondansetron (ZOFRAN-ODT) 4 MG TABLET DISPERSIBLE Take 1 Tablet by mouth every 8 hours as needed forNausea - 1st line. 10 Tablet 0 prazosin (MINIPRESS) 2 MG Capsule Take 2 mg by mouth nightly. Allergies Allergen Reactions Reglan [Metoclopramide] Anxiety Past Medical History Positives Diagnosis Date Anxiety Endometriosis Migraines Past Surgical History: Procedure Laterality Date ADENOIDECTOMY TONSILLECTOMY Social History Socioeconomic History Marital status: Single [...] Needs: No Food Insecurity (02/12/2024) Received from [facility] Hunger Vital Sign Worried About Running Out of Food in the Last Year: Never true Ran Out of Food in the Last Year: Never true Transportation Needs: Not on file Physical Activity: Not on file Stress: Not on file Social Integration: Not on file Intimate Partner Violence: Not on file Housing Stability: Not on file BP 115/74 Pulse 89 Temp 96.5 ??F (35.8 ??C) (Temporal) Resp 15 Ht 5' 1 (1.549 m) Wt 120 lb (54.4 kg) LMP 01/12/2024 (Exact Date) SpO2 100% BMI 22.67 kg/m?? Review of Systems Constitutional: Negative for chills and fever. HENT: Negative for congestion, ear pain, rhinorrhea and sore throat. Eyes: Negative for discharge. Respiratory: Negative for cough, chest tightness, shortness of breath and wheezing. Cardiovascular: Negative for chest pain and palpitations. Gastrointestinal: Positive for abdominal pain, nausea and vomiting. Negative for diarrhea. Genitourinary: Negative for difficulty urinating and menstrual problem. Musculoskeletal: Negative for arthralgias and myalgias. Skin: Negative for rash and wound. Neurological: Negative for dizziness, syncope and headaches. All other systems reviewed and are negative. Physical Exam Vitals and nursing note reviewed. Constitutional: General: She is not in acute distress. Appearance: She is well-developed. She is not diaphoretic. HENT: Head: Normocephalic and atraumatic. Right Ear: External ear normal. Left Ear: External ear normal. Eyes: Conjunctiva/sclera: Conjunctivae normal. Pupils: Pupils are equal, round, and reactive to light. Neck: Trachea: No tracheal deviation. Cardiovascular: Rate and Rhythm: Normal rate and regular rhythm. Heart sounds: Normal heart sounds. No murmur heard. Pulmonary: Effort: Pulmonary effort is normal. No respiratory distress. Breath sounds: Normal breath sounds. No wheezing or rales. Abdominal: General: Bowel sounds are normal. There is no distension. Palpations: Abdomen is soft. Tenderness: There is abdominal tenderness in the right upper quadrant and right lower quadrant. There is no guarding or rebound. Musculoskeletal: General: Normal range of motion. Cervical back: Normal range of motion. Skin: General: Skin is warm and dry. Neurological: Mental Status: She is alert and oriented to person, place, and time. Cranial Nerves: No cranial nerve deficit. Labs Reviewed URINALYSIS REFLEX IF INDICATED BY ABNORMAL RESULTS - Abnormal; Notable for the following components: Result Value PROTEIN, RANDOM URINE 15 mg/dL (*) URINE BLOOD 25 /uL (*) All other components within normal limits CMP (COMPREHENSIVE METABOLIC PANEL) - Abnormal; Notable for the following components: CO2, VENOUS 21 (*) BUN/CREATININE RATIO 10 (*) All other components within normal limits CBC WITH AUTO DIFFERENTIAL - Abnormal; Notable for the following components: PLATELET COUNT 478 (*) MPV 9.6 (*) NEUTROPHILS 74.8 (*) ABSOLUTE NEUTROPHILS 8.50 (*) All other components within normal limits LIPASE - Normal COMPLETE BLOOD COUNT (CBC) WITH DIFF Narrative: The following orders were created for panel order CBC with Diff [id number]. Procedure Abnormality Status --------- ------ CBC with Auto Differential[[id number]] Abnormal Final result Please view results for these tests on the individual orders. POCT URINE HCG () CT ABDOMEN PELVIS W/ CONTRAST Final Result IMPRESSION: 1. A 3 cm left ovarian cyst. Prominence of uterus, not well evaluated. A follow-up pelvic ultrasound is recommended for further evaluation in this patient with reported pelvic pain. 2. Indeterminate urinary bladder wall thickening. This is favored to be due to under distension rather than cystitis. Recommend correlation with urinalysis. 3. Trace nonspecific periportal edema. Recommend correlation with liver function tests. CMP (Comprehensive Metabolic Panel) Final Result CBC with Diff [id number] Final Result Lipase [id number] Final Result XR CHEST 2 VIEWS Final Result IMPRESSION: No acute radiographic abnormality. URINALYSIS REFLEX IF INDICATED BY ABNORMAL RESULTS Final Result Procedures Recent Results (from the past 24 hour(s)) URINALYSIS REFLEX IF INDICATED BY ABNORMAL RESULTS Result Value Ref Range SPECIFIC GRAVITY 1.015 1.003 - 1.030 URINE PH 6.5 5.0 - 9.0 WBC ESTERASE Negative Negative NITRITE Negative Negative PROTEIN, RANDOM URINE 15 mg/dL (A) Negative URINE GLUCOSE, QUAL Negative Negative URINE KETONES Negative Negative UROBILINOGEN Normal Normal mg/dL URINE BLOOD 25 /uL (A) Negative cinthia/ul URINALYSIS COLOR Yellow URINALYSIS CLARITY Clear WBC (Urine) Negative Negative, 0-5 /hpf URINE RBC'S 0-2 Negative, 0-2 /hpf EPITHELIAL CELLS Occasional /lpf BACTERIA, URINE Negative Negative /hpf POCT Urine HCG () Result Value Ref Range POC URINE Negative POC URINE CONTROL [facility] [employer]p[facility] [place] CMP (Comprehensive Metabolic Panel) Result Value Ref Range SODIUM 139 136 - 145 mmol/L POTASSIUM 3.6 3.5 - 5.1 mmol/L CHLORIDE 106 98 - 107 mmol/L CO2, VENOUS 21 (L) 22 - 30 mmol/L ANION GAP 15.6 <18.0 mmol/L GLUCOSE 90 70 - 99 mg/dL BUN 7 5 - 18 mg/dL CREATININE, BLOOD 0.73 0.60 - 1.00 mg/dL BUN/CREATININE RATIO 10 (L) 12 - 20 ratio TOTAL PROTEIN 7.6 6.3 - 8.2 g/dL ALBUMIN 4.3 3.5 - 5.0 g/dL A/G RATIO 1.3 1.0 - 2.2 CALCIUM 9.5 8.7 - 10.5 mg/dL T BILI 0.3 0.2 - 1.2 mg/dL SGOT (AST) 23 5 - 34 U/L SGPT (ALT) 17 0 - 55 U/L ALKALINE PHOSPHATASE 47 40 - 150 U/L GFR, ESTIMATED >60 >=60 GFR, EST. >60 >=60 GFR, EST. NONAFRICAN >60 >=60 Lipase [id number] Result Value Ref Range LIPASE 19 8 - 78 U/L CBC with Auto Differential Result Value Ref Range WBC 11.35 4.00 - 12.00 10(3)/mcL RBC 4.03 3.80 - 5.30 10(6)/mcL HEMOGLOBIN (HGB) 12.2 12.0 - 15.8 g/dL HEMATOCRIT (HCT) 36.1 36.0 - 47.0 % MCV 89.6 82.0 - 96.0 fL MCH 30.3 26.0 - 34.0 pg MCHC 33.8 31.0 - 36.0 g/dL PLATELET COUNT 478 (H) 140 - 440 10(3)/mcL RDW 12.6 11.8 - 15.5 % MPV 9.6 (L) 9.7 - 12.4 fL NEUTROPHILS 74.8 (H) 47.0 - 73.0 % LYMPHOCYTES 19.2 18.0 - 42.0 % MONOCYTES 5.6 4.0 - 12.0 % EOSINOPHILS 0.1 0.0 - 5.0 % BASOPHILS 0.3 0.0 - 1.0 % ABSOLUTE NEUTROPHILS 8.50 (H) 1.60 - 7.70 10(3)/mcL ABSOLUTE LYMPHOCYTES 2.18 1.30 - 3.20 10(3)/mcL ABSOLUTE MONOCYTES 0.63 0.20 - 1.00 10(3)/mcL ABSOLUTE EOSINOPHIL 0.01 0.00 - 0.40 10(3)/mcL ABSOLUTE BASOPHILS 0.03 0.00 - 0.10 10(3)/mcL NRBC PER [address] ABDOMEN PELVIS W/ CONTRAST (Final result) Result time 03/19/24 16:49:39 Final result by Saul Bustillos MD (03/19/24 16:49:39) Impression: IMPRESSION: 1. A 3 cm left ovarian cyst. Prominence of uterus, not well evaluated. A follow-up pelvic ultrasound is recommended for further evaluation in this patient with reported pelvic pain. 2. Indeterminate urinary bladder wall thickening. This is favored to be due to under distension rather than cystitis. Recommend correlation with urinalysis. 3. Trace nonspecific periportal edema. Recommend correlation with liver function tests. Narrative: EXAM DESCRIPTION: CT ABDOMEN PELVIS W/ CONTRAST REASON FOR STUDY: lower abdominal pain and right upper back pain that started four days ago. Patient also reports nausea, vomiting, and painful urination. Hx endometriosis TECHNIQUE: CT scan of the abdomen and pelvis performed with intravenous and without oral contrast using helical scanning technique with dynamic intravenous contrast injection. Reconstructed coronal and sagittal MPR images reviewed. All images stored on PACS. Automated exposure control was used as a dose optimization technique for this examination. CONTRAST TYPE/DOSE: 60mL of IOPAMIDOL 76 % IV SOLN injected via Intravenous COMPARISON: 03/09/2020 FINDINGS: LOWER CHEST: Visualized lung bases are clear. LIVER: The liver is normal in size. Trace periportal edema is noted. No definite liver lesion is seen. GALLBLADDER: Distended. No CT evidence of acute cholecystitis BILE DUCTS: No gross biliary ductal dilatation. SPLEEN: Spleen is normal in size. PANCREAS: Pancreas is normal in size without significant [place] pancreatic stranding or main ductal dilatation. ADRENALS: Normal. KIDNEYS/URINARY TRACT: The kidneys are normal in size. Symmetric in enhancement. No hydronephrosis or perinephric stranding is seen. Urinary bladder is partially distended. Mild diffuse bladder wall thickening is indeterminate but likely due to under distension. No substantial bladder stranding. GI: Stool throughout the colon which appears nondilated. The appendix is not definitively seen. Small hiatal hernia seen. There is narrowing of the gastric outlet, likely physiologic. The small bowel appears nondilated without wall thickening or evidence of obstruction. PERITONEUM: No significant ascites. No organized drainable fluid collection. No mesenteric lymphadenopathy. No hernia. RETROPERITONEUM: No retroperitoneal lymphadenopathy. No inguinal lymphadenopathy is seen with subcentimeter lymph nodes noted REPRODUCTIVE: Evidence of a 3.4 cm left ovarian cyst. There is heterogeneity of the uterus, not well evaluated. VASCULATURE: Portal vein is patent. Aorta is normal caliber MUSCULOSKELETAL: No significant abnormality. OTHER: No other abnormality. THIS IS AN ELECTRONICALLY VERIFIED FINAL REPORT 03/19/2024 4:47 PM - Electronically signed by Saul Bustillos M.D. AG: AG Report ID: [id number] Reading Location: [id number] XR CHEST 2 VIEWS (Final result) Result time 03/19/24 15:08:17 Final result by Idris Sun MD (03/19/24 15:08:17) Impression: IMPRESSION: No acute radiographic abnormality. Narrative: EXAM DESCRIPTION: XR CHEST 2 VIEWS REASON FOR STUDY: Lower abdominal pain with nausea and vomiting. Right upper back pain for 4 days. TECHNIQUE: PA and lateral radiographic views of the chest COMPARISON: Chest radiograph from 09/04/2022 FINDINGS: LUNGS/PLEURAE: No consolidation or pneumothorax. No pleural effusion. HEART/MEDIASTINUM: Heart size is normal. Normal mediastinal and hilar contours. HARDWARE/LINES/TUBES: None. BONES: No acute findings. THIS IS AN ELECTRONICALLY VERIFIED FINAL REPORT 03/19/2024 3:05 PM - Electronically signed by Idris Sun M.D. LB: LB Report ID: [id number] Reading Location: [id number] Medical Decision Making Clinical Impression 1. RUQ abdominal pain 2. Left ovarian cyst Disposition: Discharge Patient was informed of imaging results. She was encouraged to f/u with her obgyn to discuss the L ovarian cyst and with her pmd to further discuss her RUQ abdominal pain. Encouraged her to return for reevaluation if sx change or worsen. Patient expressed understanding and agreement to the tx plan. Cosigned by Griffin Ervin MD at 03/24/2024 5:54 PM CDT Associated attestation - Griffin Ervin MD - 03/24/2024 5:54 PM CDT I was available for consultation but was not asked by the GAS REGULATOR REPAIRER/PA to evaluate this patient. I did not personally examine this patient. I defer to the attached note. I have the following additions/revisions: * Fariba Mulligan, RN - 03/19/2024 1:53 PM CDT Patient to ED with complaints of lower abdominal pain and right upper back pain that started four days ago. Patient also reports nausea, vomiting, and painful urination. She denies diarrhea. documented in this encounter Miscellaneous Notes * PatientPass Patient Instructions - Fariba Reddy, PAC - 03/19/2024 4:54 PM CDT Images from the original note were not included. Patient Education Table of Contents Abdominal Pain, Adult Ovarian Cyst To view videos and all your education online visit, [email or web address] or scan this QR code with your smartphone. Access to this content will in one year. Abdominal Pain, Adult Many things can cause belly (abdominal) pain. In most cases, belly pain is not a serious problem and can be watched and treated at home. But in some cases, it can be serious. Your doctor will try to find the cause of your belly pain. Follow these instructions at home: Medicines Take tebb-twv-qtzzohy and prescription medicines only as told by your doctor. Do not take medicines that help you poop (laxatives) unless told by your doctor. General instructions Watch your belly pain for any changes. Tell your doctor if the pain gets worse. Drink enough fluid to keep your pee (urine) pale yellow. Contact a doctor if: Your belly pain changes or gets worse. You have very bad cramping or bloating in your belly. You vomit. Your pain gets worse with meals, after eating, or with certain foods. You have trouble pooping or have watery poop for more than 2?3 days. You are not hungry, or you lose weight without trying. You have signs of not getting enough fluid or water (dehydration). These may include: ? Dark pee, very little pee, or no pee. ? Cracked lips or dry mouth. ? Feeling sleepy or weak. You have pain when you pee or poop. Your belly pain wakes you up at night. You have blood in your pee. You have a fever. Get help right away if: You cannot stop vomiting. Your pain is only in one part of your belly, like on the right side. You have bloody or black poop, or poop that looks like tar. You have trouble breathing. You have chest pain. These symptoms may be an emergency. Get help right away. Call 911. Do not wait to see if the symptoms will go away. Do not drive yourself to the hospital. This information is not intended to replace advice given to you by your health care provider. Make sure you discuss any questions you have with your health care provider. Document Released: 2009-01-30 Document Updated: 2023-05-31 Document Reviewed: 2023-05-31 Elsevier Patient Education ? 2023 [employer] Ovarian Cyst An ovarian cyst is a fluid-filled sac that forms on an ovary. The ovaries are small organs that produce eggs in women. Various types of cysts can form on the ovaries. Some may cause symptoms and require treatment. Most ovarian cysts go away on their own, are not cancerous (are benign), and do not cause problems. What are the causes? Ovarian cysts may be caused by: Ovarian hyperstimulation syndrome. This is a condition that can develop from taking fertility medicines. It causes multiple large ovarian cysts to form. Polycystic ovarian syndrome (PCOS). This is a common hormonal disorder that can cause ovarian cyststo form, and can cause problems with your period or fertility. The normal menstrual cycle. What increases the risk? The following factors may make you more likely to develop this condition: Being overweight or obese. Taking fertility medicines. Taking certain forms of hormonal control. Smoking. What are the signs or symptoms? Many ovarian cysts do not cause symptoms. If symptoms are present, they may include: Pelvic pain or pressure. Pain in the lower abdomen. Pain during sex. Abdominal swelling. Abnormal menstrual periods. Increasing pain with menstrual periods. How is this diagnosed? These cysts are commonly found during a routine pelvic exam. You may have tests to find out more about the cyst, such as: Ultrasound. CT scan. MRI. Blood tests. How is this treated? Many ovarian cysts go away on their own without treatment. Your health care provider may want to check your cyst regularly for 2?3 months to see if it changes. If you are in menopause, it is especially important to have your cyst monitored closely because menopausal women have a higher rate of ovarian cancer. When treatment is needed, it may include: Medicines to help relieve pain. A procedure to drain the cyst (aspiration). Surgery to remove the whole cyst (cystectomy). Hormone treatment or control pills. These methods are sometimes used to help keep cysts from coming back. Surgery to remove the ovary (oophorectomy). Follow these instructions at home: Take incm-opt-asmblec and prescription medicines only as told by your health care provider. Ask your health care provider if any medicine prescribed to you requires you to avoid driving or using machinery. Get regular pelvic exams and Pap tests as often as told by your health care provider. Return to your normal activities as told by your health care provider. Ask your health care provider what activities are safe for you. Do not use any products that contain nicotine or tobacco, such as cigarettes, e- cigarettes, and chewing tobacco. If you need help quitting, ask your health care provider. Keep all follow-up visits. This is important. Contact a health care provider if: Your periods are late, irregular, painful, or they stop. You have pelvic pain that does not go away. You have pressure on your bladder or trouble emptying your bladder completely. You have any of the following: ? A feeling of fullness. ? You are gaining weight or losing weight without changing your exercise and eating habits. ? Pain, swelling, or bloating in the abdomen. ? Loss of appetite. ? Pain and pressure in your back and pelvis. You think you may be . Get help right away if: You have abdominal or pelvic pain that is severe or gets worse. You cannot eat or drink without vomiting. You suddenly develop a fever or chills. Your menstrual period is much heavier than usual. Summary An ovarian cyst is a fluid-filled sac that forms on an ovary. Some ovarian cysts may cause symptoms and require treatment. These cysts are commonly found during a routine pelvic exam. Many ovarian cysts go away on their own without treatment. This information is not intended to replace advice given to you by your health care provider. Make sure you discuss any questions you have with your health care provider. Document Released: 2006-08-14 Document Updated: 2021-01-15 Document Reviewed: 2021-01-21 Elsevier Patient Education ? 2023 [employer] documented in this encounter Plan of Treatment Upcoming Encounters Date Type Department Care Team (Late st Contact Info) Description 09/18/2024 1:00 PM PCB DESIGNER [facility] [address] [place] [address] TalbertLuciusCitlalli Kristyn, PAC [address] [place] [address] Discharge Disposition: Discharged to home or Selfcare 09/25/2024 2:15 PM PCB DESIGNER Office Visit [facility] [address] [place] [address] Citlalli Talbert Kristyn, PAC [address] [place] [address] Discharge Disposition: Discharged to home or Selfcare documented as of this encounter Procedures Procedure Name Priority Date/Time Associated Diagnosis Comments CT ABDOMEN PELVIS W/ CONTRAST Stat with Interpretation 03/19/2024 4:11 PM CDT CBC WITH AUTO DIFFERENTIAL STAT 03/19/2024 3:04 PM CDT LIPASE STAT 03/19/2024 3:04 PM CDT CMP (COMPREHENSIVE METABOLIC PANEL) STAT 03/19/2024 3:04 PM CDT COMPLETE BLOOD COUNT (CBC) WITH DIFF STAT 03/19/2024 3:04 PM CDT XR CHEST 2 VIEWS STAT 03/19/2024 3:00 PM CDT POCT URINE HCG () STAT 03/19/2024 2:42 PM CDT URINALYSIS REFLEX IF INDICATED BY ABNORMAL RESULTS STAT 03/19/2024 2:35 PM CDT documented in this encounter Results * CT ABDOMEN PELVIS W/ CONTRAST (03/19/2024 4:11 PM CDT) Anatomical Region Laterality Modality Abdomen N/A Computed Tomogra phy 03/19/2024 4:47 PM CDT Impressions 03/19/2024 4:49 PM CDT IMPRESSION: ?? 1. ?? A 3 cm left ovarian cyst. ??Prominence of uterus, not well evaluated. ??A follow-up pelvic ultrasound is recommended for further evaluation in this patient with reported pelvic pain. 2. ?? Indeterminate urinary bladder wall thickening. ??This is favored to be due to under distension rather than cystitis. ??Recommend correlation with urinalysis. 3. ?? Trace nonspecific periportal edema. ??Recommend correlation with liver function tests. Narrative 03/19/2024 4:49 PM CDT EXAM DESCRIPTION: ?? CT ABDOMEN PELVIS W/ CONTRAST REASON FOR STUDY: ?? lower abdominal pain and right upper back pain that started four days ago. Patient also reports nausea, vomiting, and painful urination. Hx endometriosis TECHNIQUE: CT scan of the abdomen and pelvis performed with intravenous and ??without ??oral contrast using helical scanning technique with dynamic intravenous contrast injection. Reconstructed coronal and sagittal MPR images reviewed. All images stored on PACS. Automated exposure control was used as a dose optimization technique for this examination. CONTRAST TYPE/DOSE: ?? 60mL of IOPAMIDOL 76 % IV SOLN ??injected via ?? Intravenous COMPARISON: ?? 03/09/2020 FINDINGS: LOWER CHEST: ?? Visualized lung bases are clear. LIVER: ?? The liver is normal in size. ??Trace periportal edema is noted. ??No definite liver lesion is seen. GALLBLADDER: ?? Distended. ??No CT evidence of acute cholecystitis BILE DUCTS: ?? No gross biliary ductal dilatation. SPLEEN: ?? Spleen is normal in size. PANCREAS: ?? Pancreas is normal in size without significant Rose Mary pancreatic stranding or main ductal dilatation. ?? ADRENALS: ?? Normal. KIDNEYS/URINARY TRACT: ?? The kidneys are normal in size. ??Symmetric in enhancement. ??No hydronephrosis or perinephric stranding is seen. ?? Urinary bladder is partially distended. ??Mild diffuse bladder wall thickening is indeterminate but likely due to under distension. No substantial bladder stranding. GI: ?? Stool throughout the colon which appears nondilated. ??The appendix is not definitively seen. ??Small hiatal hernia seen. ??There is narrowing of the gastric outlet, likely physiologic. ??The small bowel appears nondilated without wall thickening or evidence of obstruction. PERITONEUM: ?? No significant ascites. ??No organized drainable fluid collection. ??No mesenteric lymphadenopathy. ??No hernia. ?? RETROPERITONEUM: ?? No retroperitoneal lymphadenopathy. ??No inguinal lymphadenopathy is seen with subcentimeter lymph nodes noted REPRODUCTIVE: ?? Evidence of a 3.4 cm left ovarian cyst. ??There is heterogeneity of the uterus, not well evaluated. VASCULATURE: ?? Portal vein is patent. ??Aorta is normal caliber MUSCULOSKELETAL: ?? No significant abnormality. OTHER: ?? No other abnormality. THIS IS AN ELECTRONICALLY VERIFIED FINAL REPORT 03/19/2024 4:47 PM - Electronically signed by ??Saul Bustillos M.D. AG: AG D: ??03/19/2024 4:47 PM T: ??03/19/2024 4:47 PM Report ID: [id number] Reading Location: ??[id number] Procedure Note Saul Bustillos MD - 03/19/2024 EXAM DESCRIPTION: CT ABDOMEN PELVIS W/ CONTRAST REASON FOR STUDY: lower abdominal pain and right upper back pain that started four days ago. Patient also reports nausea, vomiting, and painful urination. Hx endometriosis TECHNIQUE: CT scan of the abdomen and pelvis performed with intravenous and without oral contrast using helical scanning technique with dynamic intravenous contrast injection. Reconstructed coronal and sagittal MPR images reviewed. All images stored on PACS. Automated exposure control was used as a dose optimization technique for this examination. CONTRAST TYPE/DOSE: 60mL of IOPAMIDOL 76 % IV SOLN injected via Intravenous COMPARISON: 03/09/2020 FINDINGS: LOWER CHEST: Visualized lung bases are clear. LIVER: The liver is normal in size. Trace periportal edema is noted. No definite liver lesion is seen. GALLBLADDER: Distended. No CT evidence of acute cholecystitis BILE DUCTS: No gross biliary ductal dilatation. SPLEEN: Spleen is normal in size. PANCREAS: Pancreas is normal in size without significant Rose Mary pancreatic stranding or main ductal dilatation. ADRENALS: Normal. KIDNEYS/URINARY TRACT: The kidneys are normal in size. Symmetric in enhancement. No hydronephrosis or perinephric stranding is seen. Urinary bladder is partially distended. Mild diffuse bladder wall thickening is indeterminate but likely due to under distension. No substantial bladder stranding. GI: Stool throughout the colon which appears nondilated. The appendix is not definitively seen. Small hiatal hernia seen. There is narrowing of the gastric outlet, likely physiologic. The small bowel appears nondilated without wall thickening or evidence of obstruction. PERITONEUM: No significant ascites. No organized drainable fluid collection. No mesenteric lymphadenopathy. No hernia. RETROPERITONEUM: No retroperitoneal lymphadenopathy. No inguinal lymphadenopathy is seen with subcentimeter lymph nodes noted REPRODUCTIVE: Evidence of a 3.4 cm left ovarian cyst. There is heterogeneity of the uterus, not well evaluated. VASCULATURE: Portal vein is patent. Aorta is normal caliber MUSCULOSKELETAL: No significant abnormality. OTHER: No other abnormality. THIS IS AN ELECTRONICALLY VERIFIED FINAL REPORT 03/19/2024 4:47 PM - Electronically signed by Saul Bustillos M.D. AG: IVONNE Report ID: [id number] Reading Location: [id number] IMPRESSION: 1. A 3 cm left ovarian cyst. Prominence of uterus, not well evaluated. A follow-up pelvic ultrasound is recommended for further evaluation in this patient with reported pelvic pain. 2. Indeterminate urinary bladder wall thickening. This is favored to be due to under distension rather than cystitis. Recommend correlation with urinalysis. 3. Trace nonspecific periportal edema. Recommend correlation with liver function tests. Fariba [place] Page PAC IMG CT ORDERABLES Final Resu lt * (ABNORMAL) CBC with Auto Differential (03/19/2024 3:04 PM CDT) WBC 11.35 4.00 - 12.00 10(3)/mcL 03/19/2024 3:20 PM CDT [facility] RBC 4.03 3.80 - 5.30 10(6)/mcL 03/19/2024 3:[address] [facility] HEMOGLOBIN (HGB) 12.2 12.0 - 15.8 g/dL 03/19/2024 3:[address] [facility] HEMATOCRIT (HCT) 36.1 36.0 - 47.0 % 03/19/2024 3:[address] [facility] MCV 89.6 82.0 - 96.0 fL 03/19/2024 3:[address] [facility] MCH 30.3 26.0 - 34.0 pg 03/19/2024 3:[address] [facility] MCHC 33.8 31.0 - 36.0 g/dL 03/19/2024 3:[address] [facility] PLATELET COUNT 478(H) 140 - 440 10(3)/[facility] 03/19/2024 3:20 PM CDT [facility] RDW 12.6 11.8 - 15.5 % 03/19/2024 3:[address] [facility] MPV 9.6(L) 9.7 - 12.4 fL 03/19/2024 3:[address] [facility] NEUTROPHILS 74.8(H) 47.0 - 73.0 % 03/19/2024 3:[address] [facility] LYMPHOCYTES 19.2 18.0 - 42.0 % 03/19/2024 3:[address] [facility] MONOCYTES 5.6 4.0 - 12.0 % 03/19/2024 3:[address] [facility] EOSINOPHILS 0.1 0.0 - 5.0 % 03/19/2024 3:[address] [facility] BASOPHILS 0.3 0.0 - 1.0 % 03/19/2024 3:[address] [facility] ABSOLUTE NEUTROPHILS 8.50(H) 1.60 - 7.70 10(3)/[facility] 03/19/2024 3:[address] [facility] ABSOLUTE LYMPHOCYTES 2.18 1.30 - 3.20 10(3)/mcL 03/19/2024 3:20 PM CDT [facility] ABSOLUTE MONOCYTES 0.63 0.20 - 1.00 10(3)/mcL 03/19/2024 3:20 PM CDT [facility] ABSOLUTE EOSINOPHIL 0.01 0.00 - 0.40 10(3)/[facility] 03/19/2024 3:20 PM CDT [facility] ABSOLUTE BASOPHILS 0.03 0.00 - 0.10 10(3)/[facility] 03/19/2024 3:20 PM CDT [facility] NRBC PER 100 WBC 0 03/19/20 3:[address] [facility] Blood Venipuncture / Unknown 03/19/2024 3:04 PM CDT 03/19/2024 3:16 PM CDT Fariba Reddy PAC HEMATOLOGY ORDERABLES Final Result Performing Organization Address City/[facility]/ZIP Co de Phone Number [facility] [address] [place] [address] * Lipase [id number] (03/19/2024 3:04 PM CDT) Pathologist [facility] LIPASE 19 8 - 78 U/L 03/19/2024 3:[address] [facility] Blood Venipuncture / Unknown 03/19/2024 3:04 PM CDT 03/19/2024 3:16 PM CDT Fariba Lima Page PAC CHEMISTRY ORDERABLES Final R esult Performing Organization Address City/[facility]/ZIP Co de Phone Number [facility] [address] [place] [address] * (ABNORMAL) CMP (Comprehensive Metabolic Panel) (03/19/2024 3:04 PM CDT) SODIUM 139 136 - 145 mmol/L 03/19/2024 3:43 PM CDT [facility] POTASSIUM 3.6 3.5 - 5.1 mmol/L 03/19/2024 3:43 PM CDT [facility] CHLORIDE 106 98 - 107 mmol/L 03/19/2024 3:43 PM CDT [facility] CO2, VENOUS 21(L) 22 - 30 mmol/L 03/19/2024 3:43 PM CDT [facility] ANION GAP 15.6 <18.0 mmol/L 03/19/2024 3:43 PM CDT [facility] GLUCOSE 90 70 - 99 mg/dL 03/19/2024 3:43 PM CDT [facility] BUN 7 5 - 18 mg/dL 03/19/2024 3:43 PM T [facility] CREATININE, BLOOD 0.73 0.60 - 1.00 mg/dL 03/19/2024 3:43 PM CDT [facility] BUN/CREATININE RATIO 10(L) 12 - 20 ratio 03/19/2024 3:43 PM CDT [facility] TOTAL PROTEIN 7.6 6.3 - 8.2 g/dL 03/19/2024 3:43 PM CDT [facility] ALBUMIN 4.3 3.5 - 5.0 g/dL 03/19/2024 3:43 PM T [facility] A/G RATIO 1.3 1.0 - 2.2 03/19/2024 3:43 PM CDT [facility] CALCIUM 9.5 8.7 - 10.5 mg/dL 03/19/2024 3:43 PM CDT [facility] T BILI 0.3 0.2 - 1.2 mg/dL 03/19/2024 3:43 PM CDT [facility] SGOT (AST) 23 5 - 34 U/L 03/19/2024 3:43 PM CDT [facility] SGPT (ALT) 17 0 - 55 U/L 03/19/2024 3:43 PM CDT [facility] ALKALINE PHOSPHATASE 47 40 - 150 U/L 03/19/2024 3:43 PM CDT [facility] GFR, ESTIMATED >60 >=60 03/19/2024 3:43 PM CDT [facility] Comment: Creatinine Clearance is the preferred criteria for selecting drug dose adjustments in renally impaired patients. ??The GFR is provided as additional pertinent clinical information. GFR is reported in mL/min/1.73 sq m. Calculation based on the Chronic Kidney Disease Epidemiology Collaboration (CKD- EPI) equation refit without adjustment for race. GFR, EST. >60 >=60 024 3:43 PM CDT [facility] GFR, EST. NONAFRICAN >60 >=60 03/19/2024 3:43 PM CDT [facility] Blood Venipuncture / Unknown 03/19/2024 3:04 PM CDT 03/19/2024 3:16 PM CDT Fariba Lima Page PAC CHEMISTRY ORDERABLES Final R esult [facility] [address] [place] [address] * XR CHEST 2 VIEWS (03/19/2024 3:00 PM CDT) Anatomical Region Laterality Modality Chest N/A Digital Radiogra phy 03/19/2024 3:05 PM CDT Impressions 03/19/2024 3:08 PM CDT IMPRESSION: No acute radiographic abnormality. ?? Narrative 03/19/2024 3:08 PM CDT EXAM DESCRIPTION: ?? XR CHEST 2 VIEWS REASON FOR STUDY: Lower abdominal pain with nausea and vomiting. ?? Right upper back pain for 4 days. TECHNIQUE: PA and lateral radiographic views of the chest COMPARISON: Chest radiograph from 09/04/2022 FINDINGS: LUNGS/PLEURAE: ?? No consolidation or pneumothorax. No pleural effusion. HEART/MEDIASTINUM: ??Heart size is normal. Normal mediastinal and hilar contours. HARDWARE/LINES/TUBES: ?? None. BONES: ??No acute findings. ?? THIS IS AN ELECTRONICALLY VERIFIED FINAL REPORT 03/19/2024 3:05 PM - Electronically signed by ??Idris Sun M.D. LB: LB D: ??03/19/2024 3:05 PM T: ??03/19/2024 3:05 PM Report ID: [id number] Reading Location: ??[id number] Procedure Note Idris Sun MD - 03/19/2024 EXAM DESCRIPTION: XR CHEST 2 VIEWS REASON FOR STUDY: Lower abdominal pain with nausea and vomiting. Right upper back pain for 4 days. TECHNIQUE: PA and lateral radiographic views of the chest COMPARISON: Chest radiograph from 09/04/2022 FINDINGS: LUNGS/PLEURAE: No consolidation or pneumothorax. No pleural effusion. HEART/MEDIASTINUM: Heart size is normal. Normal mediastinal and hilar contours. HARDWARE/LINES/TUBES: None. BONES: No acute findings. THIS IS AN ELECTRONICALLY VERIFIED FINAL REPORT 03/19/2024 3:05 PM - Electronically signed by Idris Sun M.D. LB: LB Report ID: [id number] Reading Location: [id number] IMPRESSION: No acute radiographic abnormality. Fariba Reddy PAC IMG DIAGNOSTIC ORDERABLES Fi nal Result * POCT Urine HCG () (03/19/2024 2:42 PM CDT) Pathologist [facility] POC URINE Negative POC URINE CONTROL [employer] Disp[employer] Pass Urine 03/19/2024 2:42 PM CDT Fariba Lima Page PAC POINT OF CARE TESTING (MANUA L) Final Result * (ABNORMAL) URINALYSIS REFLEX IF INDICATED BY ABNORMAL RESULTS (03/19/2024 2:35 PM CDT) Pathologist [facility] SPECIFIC GRAVITY 1.015 1.003 - 1.030 03/19/2024 3:00 PM CDT [facility] URINE PH 6.5 5.0 - 9.0 03/19/2024 3:[address] [facility] WBC ESTERASE Negative Negative 03/19/2024 3:[address] [facility] NITRITE Negative Negative 03/19/2024 3:[address] [facility] PROTEIN, RANDOM URINE 15 mg/dL(A) Negative 03/19/2024 3:00 PM CDT [facility] URINE GLUCOSE, QUAL Negative Negative 03/19/2024 3:00 PM CDT [facility] URINE KETONES Negative Negative 03/19/2024 3:[address] [facility] UROBILINOGEN Normal Normal mg/dL 03/19/2024 3:[address] [facility] URINE BLOOD 25 /uL(A) Negative cinthia/ul 03/19/2024 3:[address] [facility] URINALYSIS COLOR Yellow 03/19/20 3:[address] [facility] URINALYSIS CLARITY Clear 03/19/2024 3:[address] [facility] WBC (Urine) Negative Negative, 0-5 /hpf 03/19/2024 3:[address] [facility] URINE RBC'S 0-2 Negative, 0-2 /hpf 03/19/2024 3:[address] [facility] EPITHELIAL CELLS Occasional /lpf 03/19/20 3:[address] [facility] BACTERIA, URINE Negative Negative /hpf 03/19/2024 3:[address] [facility] Urine URINE SPECIMEN COLLECTION, CLEAN CATCH / Unknown Non-Phlebotomy Collection / Unknown 03/19/2024 2:35 PM CDT 03/19/2024 2:42 PM CDT us Fariba Lima Page PAC URINE ORDERABLES Final Resul t [facility] [address] [place] [address] documented in this encounter Visit Diagnoses Diagnosis RUQ abdominal pain- Primary Abdominal pain, right upper quadrant Left ovarian cyst Other and unspecified ovarian cyst documented in this encounter Administered Medications Inactive Administered Medications - up to 3 most recent administrations Medication Order MAR Action Action Date Dose Rate Site 0.9 % sodium chloride solution at 1,000 mL/hr, Intravenous, ONCE, 1 dose, On 03/19/24 at 1500 New Bag 03/19/2024 3:02 PM CDT 1000 mL/hr iopamidol (ISOVUE-370) 76 % injection 60 mL 60 mL, Intravenous, ONCE, 1 dose, On 03/19/24 at 1630 Given 03/19/2024 4:09 PM CDT 60 mL ketorolac (TORADOL) injection 30 mg 30 mg, Intravenous, ONCE, 1 dose, On 03/19/24 at 1500 Given 03/19/2024 3:03 PM CDT 30 mg ondansetron (ZOFRAN) injection 4 mg 4 mg, Intravenous, ONCE, 1 dose, On 03/19/24 at 1500 Given 03/19/2024 3:03 PM CDT 4 mg documented in this encounter Active and Recently Administered Medications Times are shown in CDT. Scheduled Medication Order 03/17/2024 03/18/2024 03/19/2024 0.9 % sodium chloride solution (COMPLETED) at 1,000 mL/hr, Intravenous, ONCE, 1 dose, On 03/19/24 at 1500 1502 (New Bag - Prov ider: Zuri Whaley RN)[id number] (Stopped - Provider: Zuri Whaley RN) iopamidol (ISOVUE-370) 76 % injection 60 mL (COMPLETED) 60 mL, Intravenous, ONCE, 1 dose, On 03/19/24 at 1630 1609 (Given - Provid er: Bella Tristan, RT(R) (CT)) ketorolac (TORADOL) injection 30 mg (COMPLETED) 30 mg, Intravenous, ONCE, 1 dose, On 03/19/24 at 1500 1503 (Given - Provid er: Zuri Whaley RN) ondansetron (ZOFRAN) injection 4 mg (COMPLETED) 4 mg, Intravenous, ONCE, 1 dose, On 03/19/24 at 1500 1503 (Given - Provid er: Zuri Whaley RN) documented in this encounter Care Teams Director Learning Services Relationship Specialty Start Date End Date Radha Martins MD [address] [place] [id number] PCP - General Family Medicine 01/02/24 documented as of this encounter
--- OUTSIDE RECORDS SUMMARY | 2024-08-31 21:54 | XMS_ITS | Encounter Summary ---
Author Organization [facility] Address [address] [place] [address] Care Team Providers Care Machine Shop Instructor Name Role Phone Nelly Marcus MD Primary Care Provider [phone] Encounter Details Date Type Department Care Team (Latest Contact Info) Description 06/26/2018 1:40 PM CDT - 06/26/2018 11:59 PM CDT Hospital Encounter [facility] at [address] [address] Soo Hatfield MD [address] [place] [id number] Discharge Disposition: Home or Self Care Social [...] Sig Dispensed Refills Start Date End Date Lhlczmr-Ahvdqzmevjxvj-Od ffeine (EXCEDRIN MIGRAINE PO) Take 2 Tabs [...] on filedocumented in this encounter Care Teams Machine Shop Instructor Relationship Specialty Start Date End Date Nelly Marcus MD [address] [place] [id number] PCP - General Pediatrics 03/30/16 09/16/19 documented as of this encounter
--- OUTSIDE RECORDS SUMMARY | 2024-08-31 21:54 | XMS_ITS | Encounter Summary ---
Author Organization [facility] [employer] Care Team Providers Care Segment Block Layer Name Role Phone Radha Martins MD Primary Care Provider [phone] Encounter Details Date Type Department Care Team (Latest Contact Info) Description 03/20/2024 Travel Social History Tobacco Use Types Packs/Day [...] Sex Assigned at Female 10/25/2023 8:55 PM MANAGER ENGAGEMENT Legal Sex Female 8:58 PM CDT Gender Identity Female 10/25/2023 8:55 PM MANAGER ENGAGEMENT Sexual Orientation Not on file documented as of this encounter Plan of Treatment Upcoming Encounters Date Type Department Care Team (Late st Contact Info) Description 09/18/2024 1:00 PM MANAGER ENGAGEMENT Lab [facility] [address] [place] [address] Citlalli Talbert, PAC [address] [place] [address] Discharge Disposition: Discharged to home or Selfcare 09/25/2024 2:15 PM MANAGER ENGAGEMENT Office Visit [facility] [address] [place] [address] Citlalli Talbert Kristyn, PAC [address] [place] [address] Discharge Disposition: Discharged to home or Selfcare documented as of this encounter Visit Diagnoses Not on filedocumented in this encounter Care Teams Segment Block Layer Relationship Specialty Start Date End Date Radha Martins MD [address] [place] [address] PCP - General Family Medicine 01/02/24 documented as of this encounter
--- OUTSIDE RECORDS SUMMARY | 2024-08-31 21:54 | XMS_ITS | Encounter Summary ---
Author Organization [facility] Address [address] [place] [address] Phone Care Team Providers Care Counter Tacker Name Role Phone Radha Martins MD Primary Care Provider [phone] Reason for Visit * Reason Comments Vomiting Encounter Details Date Type Department Care Team ([facility] st Contact Info) Description 02/27/2024 8:55 AM CDT - 02/27/2024 11:15 AM CDT Emergency [facility] Emergency [address] [place] [address] Luciana Calabrese APRN, NUT ROASTER [address] [place] [address] Viral gastroenteritis Discharge Disposition: Discharged to home or Selfcare [...] Sex Assigned at Female 10/25/2023 8:55 PM HAND TOUCH UP PAINTER Legal Sex Female 8:58 PM CDT Gender Identity Female 10/25/2023 8:55 PM HAND TOUCH UP PAINTER Sexual Orientation Not on file documented as of this encounter Last Filed Vital Signs Vital Sign Reading Time Taken Comments Blood Pressure 118/80 02/27/2024 11:00 AM CDT Pulse 71 02/27/2024 11:00 AM CDT Temperature 36.1 ??C (96.9 ??F) 02/27/2024 8:59 AM CD T Respiratory Rate 16 02/27/2024 9:31 AM CDT Oxygen Saturation 100% 02/27/2024 11:00 AM CDT Inhaled Oxygen Concentration - - Weight 54.4 kg (120 lb) 02/27/2024 9:00 AM CDT Height 154.9 cm (5' 1 ) 02/27/2024 9:00 AM CDT Body Mass Index 22.67 02/27/2024 9:00 AM CDT documented in this encounter Discharge Instructions * Discharge Instructions* Luciana Calabrese APRN, CNP - 02/27/2024 10:40 AM CDT Follow-up with PCP. Take medication as prescribed. Return to ED with worsening symptoms. documented in this encounter Medications at Time [...] Capsule Take 2 mg by mouth nightly. Lidocaine Viscous HCl (XYLOCAINE) 2 % Solution 5 mL by Mouth/Throat route every 2 hours as needed for Pain for up to 7 days. 100 mL 02/27/2024 03/05/2024 documented as of this encounter ED Notes * Fariba Mulligan RN - 02/27/2024 11:08 AM CDT Patient discharged. Discharge instructions and patient educational material reviewed with patient; questions and concerns addressed; patient verbalizes understanding, using teach back. Patient was given two prescriptions. Patient discharged per ambulatory mode. SL D/C'ed with Ted cath intact. * Fariba Mulligan RN - 02/27/2024 10:37 AM CDT BERLIN Chowdhury at bedside to discuss results and treatment plan with patient. * Fariba Mulligan RN - 02/27/2024 10:33 AM CDT Patient is resting in room with call light at bedside. Patient informed about wait time and verbalizes understanding. Patient denies needs at this time and verbalizes understanding that RN will complete hourly rounding. * Luciana Calabrese APRN, ISAAC - 02/27/2024 10:26 AM CDT Chief Complaint Patient presents with Vomiting Rosalba So is a 18 y.o. female who presents to the ED c/o nausea and vomiting that has been ongoing for the last 5 days. Patient states that for the last couple days she has been unable to keep anything down including food and fluids. She states that she has been experiencing abdominal cramping just prior to vomiting. She denies diarrhea or constipation. She reports fever of 102?? F yesterday. Patient also endorses sore throat and headache for the last 5 days. She states that she was treated for strep throat 3 weeks ago. She went to [facility] a few days ago and tested negative for strep. Past Medical History Positives No date: Anxiety No date: Endometriosis No date: Migraines No current facility-administered medications for this encounter. [...] Needs: No Food Insecurity (02/12/2024) Received from [facility] Hunger Vital Sign Worried About Running Out of Food in the Last Year: Never true Ran Out of Food in the Last Year: Never true Transportation Needs: Not on file Physical Activity: Not on file Stress: Not on file Social Integration: Not on file Intimate Partner Violence: Not on file Housing Stability: Not on file BP 121/77 Pulse 69 Temp 96.9 ??F (36.1 ??C) (Tympanic) Resp 16 Ht 5' 1 (1.549 m) Wt 120 lb (54.4 kg) LMP 01/12/2024 (Exact Date) SpO2 100% BMI 22.67 kg/m?? Review of Systems Constitutional: Positive for fever. Negative for chills. HENT: Positive for sore throat. Negative for congestion, ear pain and rhinorrhea. Eyes: Negative for discharge. Respiratory: Negative for cough, chest tightness, shortness of breath and wheezing. Cardiovascular: Negative for chest pain and palpitations. Gastrointestinal: Positive for abdominal pain, nausea and vomiting. Negative for diarrhea. Genitourinary: Negative for difficulty urinating and menstrual problem. Musculoskeletal: Negative for arthralgias and myalgias. Skin: Negative for rash and wound. Neurological: Positive for headaches. Negative for dizziness and syncope. All other systems reviewed and are negative. [...] and Rhythm: Normal rate and regular rhythm. Pulses: Normal pulses. Heart sounds: Normal heart sounds. No murmur heard. Pulmonary: Effort: Pulmonary effort is normal. No respiratory distress. Breath sounds: Normal breath sounds. No wheezing or rales. Abdominal: General: Bowel sounds are normal. There is no distension. Palpations: Abdomen is soft. Tenderness: There is no abdominal tenderness. There is no guarding or rebound. Musculoskeletal: General: Normal range of motion. Cervical back: Normal range of motion. Skin: General: Skin is warm and dry. Capillary Refill: Capillary refill takes less than 2 seconds. Neurological: Mental Status: She is alert and oriented to person, place, and time. Cranial Nerves: No cranial nerve deficit. Procedures Recent Results (from the past 24 hour(s)) Comprehensive Metabolic Panel (Cmp) [id number] Result Value Ref Range SODIUM 138 136 - 145 mmol/L POTASSIUM 3.8 3.5 - 5.1 mmol/L CHLORIDE 104 98 - 107 mmol/L CO2, VENOUS 21 (L) 22 - 30 mmol/L ANION GAP 16.8 <18.0 mmol/L GLUCOSE 96 70 - 99 mg/dL BUN 10 5 - 18 mg/dL CREATININE, BLOOD 0.87 0.60 - 1.00 mg/dL BUN/CREATININE RATIO 11 (L) 12 - 20 ratio TOTAL PROTEIN 8.4 (H) 6.3 - 8.2 g/dL ALBUMIN 4.7 3.5 - 5.0 g/dL A/G RATIO 1.3 1.0 - 2.2 CALCIUM 10.3 8.7 - 10.5 mg/dL T BILI 0.5 0.2 - 1.2 mg/dL SGOT (AST) 20 19 - 46 U/L SGPT (ALT) 18 0 - 55 U/L ALKALINE PHOSPHATASE 43 40 - 150 U/L GFR, ESTIMATED >60 >=60 GFR, EST. >60 >=60 GFR, EST. NONAFRICAN >60 >=60 Lipase [id number] Result Value Ref Range LIPASE 24 8 - 78 U/L CBC with Auto Differential Result Value Ref Range WBC 6.56 4.00 - 12.00 10(3)/mcL RBC 4.42 3.80 - 5.30 10(6)/mcL HEMOGLOBIN (HGB) 13.3 12.0 - 15.8 g/dL HEMATOCRIT (HCT) 40.3 36.0 - 47.0 % MCV 91.2 82.0 - 96.0 fL MCH 30.1 26.0 - 34.0 pg MCHC 33.0 31.0 - 36.0 g/dL PLATELET COUNT 413 140 - 440 10(3)/mcL RDW 12.6 11.8 - 15.5 % MPV 9.8 9.7 - 12.4 fL NEUTROPHILS 68.4 47.0 - 73.0 % LYMPHOCYTES 17.2 (L) 18.0 - 42.0 % MONOCYTES 13.9 (H) 4.0 - 12.0 % EOSINOPHILS 0.0 0.0 - 5.0 % BASOPHILS 0.5 0.0 - 1.0 % ABSOLUTE NEUTROPHILS 4.49 1.60 - 7.70 10(3)/mcL ABSOLUTE LYMPHOCYTES 1.13 (L) 1.30 - 3.20 10(3)/mcL ABSOLUTE MONOCYTES 0.91 0.20 - 1.00 10(3)/mcL ABSOLUTE EOSINOPHIL 0.00 0.00 - 0.40 10(3)/mcL ABSOLUTE BASOPHILS 0.03 0.00 - 0.10 10(3)/mcL NRBC PER 100 WBC 0 URINALYSIS REFLEX IF INDICATED BY ABNORMAL RESULTS Result Value Ref Range SPECIFIC GRAVITY 1.020 1.003 - 1.030 URINE PH 6.0 5.0 - 9.0 WBC ESTERASE 25 /ul (A) Negative NITRITE Negative Negative PROTEIN, RANDOM URINE 30 mg/dL (A) Negative URINE GLUCOSE, QUAL Negative Negative URINE KETONES Negative Negative UROBILINOGEN Normal Normal mg/dL URINE BLOOD 150 /uL (A) Negative cinthia/ul URINALYSIS COLOR Yellow URINALYSIS CLARITY Clear WBC (Urine) 0-5 Negative, 0-5 /hpf URINE RBC'S 3-5 (A) Negative, 0-2 /hpf EPITHELIAL CELLS Large amount squamous /lpf BACTERIA, URINE Many (A) Negative /hpf POCT Urine HCG () Result Value Ref Range POC URINE Negative POC URINE CONTROL Electric Meter Repairer Apprentice Pass RSV,SARS-COV-2,INFLUENZA A&B BY PCR Specimen: Nasopharyngeal; Swab Result Value Ref Range FLU A Negative Negative, Error FLU B Negative Negative RESP SYNC VIRUS Negative Negative SARSCOV2 NOT DETECTED (Reference Range for this test is Not Detected) GROUP A STREP BY PCR Specimen: Throat; Swab Result Value Ref Range GROUP A STREP BY PCR NOT DETECTED NOT DETECTED Imaging Results None Labs Reviewed CMP (COMPREHENSIVE METABOLIC PANEL) - Abnormal; Notable for the following components: Result Value CO2, VENOUS 21 (*) BUN/CREATININE RATIO 11 (*) TOTAL PROTEIN 8.4 (*) All other components within normal limits URINALYSIS REFLEX IF INDICATED BY ABNORMAL RESULTS - Abnormal; Notable for the following components: WBC ESTERASE 25 /ul (*) PROTEIN, RANDOM URINE 30 mg/dL (*) URINE BLOOD 150 /uL (*) URINE RBC'S 3-5 (*) BACTERIA, URINE Many (*) All other components within normal limits CBC WITH AUTO DIFFERENTIAL - Abnormal; Notable for the following components: LYMPHOCYTES 17.2 (*) MONOCYTES 13.9 (*) ABSOLUTE LYMPHOCYTES 1.13 (*) All other components within normal limits RSV,SARS-COV-2,INFLUENZA A&B BY PCR - Normal Narrative: This test has not been FDA cleared or approved; the test has been authorized by FDA under an Emergency Use Authorization (EUA) for use by laboratories certified under the CLIA that meet the requirements to perform moderate, high or waived complexity tests. Authorized Fact Sheets about this test for providers and patients are available at: https://www.fda. gov/medical-devices/xtkqvitlv-vlpmdnkqjh-cemnirm-devices/zfgsxtcdh-jua-vahbygcqs brett GROUP A STREP BY PCR - Normal LIPASE - Normal COMPLETE BLOOD COUNT (CBC) WITH DIFF Narrative: The following orders were created for panel order CBC with Diff [id number]. Procedure Abnormality Status --------- ------ CBC with Auto Differential[[id number]] Abnormal Final result Please view results for these tests on the individual orders. POCT URINE HCG () CBC with Diff [id number] Final Result Comprehensive Metabolic Panel (Cmp) [id number] Final Result Lipase [id number] Final Result URINALYSIS REFLEX IF INDICATED BY ABNORMAL RESULTS Final Result Medical Decision Making Amount and/or Complexity of Data Reviewed External Data Reviewed: labs and radiology. Labs: ordered. Clinical Impression 1. Viral gastroenteritis Disposition: Discharge Labs are relatively unremarkable. Patient was given IV fluids and IV Zofran in the ED. She did not have any episodes of vomiting in the ED. She reports significant improvement of symptoms. Her COVID,flu, RSV, and strep are negative. She will be prescribe Zofran for home. [facility] The patient remained stable throughout their ED stay. My clinical impression was discussed with thepatient/family. Labs and radiology results were reviewed with them. I gave them the opportunity to ask questions, and addressed them as completely as possible given the information available at present. The therapeutic plan was discussed, advised to take medications as instructed, instructions weregiven and the importance of primary care follow up was stressed and encouraged. The patient/family voiced understanding of the plan, indications to return, and the need for follow up. Cosigned by Lamont Faith MD at 02/27/2024 2:12 PM CDT * Fariba Mulligan RN - 02/27/2024 9:27 AM CDT Pt medicated per provider orders. Pt educated on intended effects and side effects of medication and verbalized understanding, able to provide teach back of education. * Fariba Mulligan RN - 02/27/2024 9:00 AM CDT Patient to ED with complaints of nausea, vomiting, sore throat, and headache for five days. Patientsays she has been unable to keep down any food or liquids. Patient was treated for strep two weeks ago. She states she went to [facility] in [place] a few days ago and had a negative strep test at that time. She denies diarrhea or urinary symptoms. She complains of abdominal pain only after trying to eat something. documented in this encounter Miscellaneous Notes * PatientPass Patient Instructions - Luciana Calabrese APRN, CNP - 02/27/2024 10:40 AM CDT Images from the original note were not included. Patient Education Table of Contents Viral Gastroenteritis, Adult To view videos and all your education online visit, [email or web address] or scan this QR code with your smartphone. Access to this content will in one year. Viral Gastroenteritis, Adult Viral gastroenteritis is also known as the stomach flu. This condition may affect your stomach, your small intestine, and your large intestine. It can cause sudden watery poop (diarrhea), fever, and vomiting. This condition is caused by certain germs (viruses). These germs can be passed from personto person very easily (are contagious). Having watery poop and vomiting can make you feel weak and cause you to not have enough water in your body (get dehydrated). This can make you tired and thirsty, make you have a dry mouth, and make it so you pee (urinate) less often. It is important to replace the fluids that you lose from having watery poop and vomiting. What are the causes? You can get sick by catching germs from other people. You can also get sick by: ? Eating food, drinking water, or touching a surface that has the germs on it (is contaminated). ? Sharing utensils or other personal items with a person who is sick. What increases the risk? Having a weak body defense system (immune system). Living with one or more children who are younger than 2 years. Living in a shelter. Going on cruise ships. What are the signs or symptoms? Symptoms of this condition start suddenly. Symptoms may last for a few days or for as long as a week. Common symptoms include: ? Watery poop. ? Vomiting. Other symptoms include: ? Fever. ? Headache. ? Feeling tired (fatigue). ? Pain in the belly (abdomen). ? Chills. ? Feeling weak. ? Feeling like you may vomit (nauseous). ? Muscle aches. ? Not feeling hungry. How is this treated? This condition typically goes away on its own. The focus of treatment is to replace the fluids thatyou lose. This condition may be treated with: An ORS (oral rehydration solution). This is a drink that helps you replace fluids and minerals yourbody lost. It is sold at pharmacies and stores. Medicines to help with your symptoms. Probiotic supplements to reduce symptoms of watery poop. Fluids given through an IV tube, if needed. Older adults and people with other diseases or a weak body defense system are at higher risk for not having enough water in the body. Follow these instructions at home: Eating and drinking Take an ORS as told by your doctor. Drink clear fluids in small amounts as you are able. Clear fluids include: ? Water. ? Ice chips. ? Fruit juice that has water added to it (is diluted). ? Low-calorie sports drinks. Drink enough fluid to keep your pee (urine) pale yellow. Eat small amounts of healthy foods every 3?4 hours as you are able. This may include whole grains, fruits, vegetables, lean meats, and yogurt. Avoid fluids that have a lot of sugar or caffeine in them. This includes energy drinks, sports drinks, and soda. Avoid spicy or fatty foods. Avoid alcohol. General instructions Wash your hands often. This is very important after you have watery poop or you vomit. If you cannot use soap and water, use hand rv mechanic. Make sure that all people in your home wash their hands well and often. Take ibst-wfq-gzhhsru and prescription medicines only as told by your doctor. Rest at home while you get better. Watch your condition for any changes. Take a warm bath to help with any burning or pain from having watery poop. Keep all follow-up visits. Contact a doctor if: You cannot keep fluids down. Your symptoms get worse. You have new symptoms. You feel light-headed or dizzy. You have muscle cramps. Get help right away if: You have chest pain. You have trouble breathing, or you are breathing very fast. You have a fast heartbeat. You feel very weak or you faint. You have a very bad headache, a stiff neck, or both. You have a rash. You have very bad pain, cramping, or bloating in your belly. Your skin feels cold and clammy. You feel mixed up (confused). You have pain when you pee. You have signs of not having enough water in the body, such as: ? Dark pee, hardly any pee, or no pee. ? Cracked lips. ? Dry mouth. ? Sunken eyes. ? Feeling very sleepy. ? Feeling weak. You have signs of bleeding, such as: ? You see blood in your vomit. ? Your vomit looks like coffee grounds. ? You have bloody or black poop or poop that looks like tar. These symptoms may be an emergency. Get help right away. Call 911. Do not wait to see if the symptoms will go away. Do not drive yourself to the hospital. Summary Viral gastroenteritis is also known as the stomach flu. This condition can cause sudden watery poop (diarrhea), fever, and vomiting. These germs can be passed from person to person very easily. Take an ORS (oral rehydration solution) as told by your doctor. This is a drink that is sold at pharmacies and stores. Wash your hands often, especially after having watery poop or vomiting. If you cannot use soap and water, use hand rv mechanic. This information is not intended to replace advice given to you by your health care provider. Make sure you discuss any questions you have with your health care provider. Document Released: 2009-01-30 Document Updated: 2022-06-13 Document Reviewed: 2022-06-13 [employer] Patient Education ? 2023 [employer] documented in this encounter Plan of Treatment Upcoming Encounters Date Type Department Care Team (Late st Contact Info) Description 09/18/2024 1:00 PM HAND TOUCH UP PAINTER Lab [facility] [address] [place] [address] Citlalli Talbert, PAC [address] [place] [address] Discharge Disposition: Discharged to home or Selfcare 09/25/2024 2:15 PM HAND TOUCH UP PAINTER Office Visit [facility] [address] [place] [address] Citlalli Talbert, PAC [address] [place] [address] Discharge Disposition: Discharged to home or Selfcare documented as of this encounter Procedures Procedure Name Priority Date/Time Associated Diagnosis Comments GROUP A STREP BY PCR STAT 02/27/2024 9:31 AM CDT RSV,SARS-COV-2,INFLUE NZA A&B BY PCR STAT 02/27/2024 9:31 AM CDT POCT URINE HCG () STAT 02/27/2024 9:30 AM CDT URINALYSIS REFLEX IF INDICATED BY ABNORMAL RESULTS STAT 02/27/2024 9:27 AM CDT CBC WITH AUTO DIFFERENTIAL STAT 02/27/2024 9:27 AM CDT LIPASE STAT 02/27/2024 9:27 AM CDT CMP (COMPREHENSIVE METABOLIC PANEL) STAT 02/27/2024 9:27 AM CDT COMPLETE BLOOD COUNT (CBC) WITH DIFF STAT 02/27/2024 9:27 AM CDT documented in this encounter Results * GROUP A STREP BY PCR (02/27/2024 9:31 AM CDT) GROUP A STREP BY PCR NOT DETECTED NOT DETECTED 02/27/2024 10:17 AM CDT [facility] Swab SPECIMEN FROM THROAT / Unknown Non-Phlebotomy Collection / Unknown 02/27/2024 9:31 AM CDT 02/27/2024 9:44 AM CDT us Luciana Calabrese APRN, NUT ROASTER MICROBIOLOGY - GENERA L ORDERABLES Final Result [facility] [address] [place] [address] * RSV,SARS-COV-2,INFLUENZA A&B BY PCR (02/27/2024 9:31 AM CDT) FLU A Negative Negative, Error 02/27/2024 10:28 AM CDT [facility] FLU B Negative Negative 02/27/2024 10:28 AM CDT [facility] RESP SYNC VIRUS Negative Negative 10:28 AM CDT [facility] SARSCOV2 NOT DETECTED (Reference Range for this test is Not Detected) 02/27/2024 10:28 AM CDT [facility] Comment:This test was perfor med by a Reverse [employer] Forces Specialist PCR Method. Swab NASOPHARYNGEAL SWAB / Unknown Non-Phlebotomy Collection / Unknown 02/27/2024 9:31 AM CDT 02/27/2024 9:44 AM CDT Narrative [facility] - 02/27/2024 10:28 AM CDT This test has not been FDA cleared or approved; the test has been authorized by FDA under an Emergency Use Authorization (EUA) for use by laboratories certified under the CLIA that meet the requirements to perform moderate, high or waived complexity tests. Authorized Fact Sheets about this test for providers and patients are available at: https://www.fda.gov/medical-devices/cycqhjdhv-ajkrtcyruw-pwxpoyd-devices/emergen -us e-authorizations us Luciana Calabrese APRN, NUT ROASTER MICROBIOLOGY - GENERA L ORDERABLES Final Result [facility] [address] [place] [address] * POCT Urine HCG () (02/27/2024 9:30 AM CDT) POC URINE Negative POC URINE CONTROL Electric Meter Repairer Apprentice Pass Urine 02/27/2024 9:30 AM CDT us Luciana Calabrese APRN, NUT ROASTER POINT OF CARE TESTING (MANUAL) Final Result * (ABNORMAL) URINALYSIS REFLEX IF INDICATED BY ABNORMAL RESULTS (02/27/2024 9:27 AM CDT) SPECIFIC GRAVITY 1.020 1.003 - 1.030 02/27/2024 10:02 AM T [facility] URINE PH 6.0 5.0 - 9.0 02/27/2024 10:02 AM [facility] WBC ESTERASE 25 /ul(A) Negative 02/27/2024 10:02 AM CDT [facility] NITRITE Negative Negative 02/27/2024 10:02 AM T [facility] PROTEIN, RANDOM URINE 30 mg/dL(A) Negative 02/27/2024 10:02 AM T [facility] URINE GLUCOSE, QUAL Negative Negative 02/27/2024 10:02 AM T [facility] URINE KETONES Negative Negative 02/27/2024 10:02 AM [facility] UROBILINOGEN Normal Normal mg/dL 02/27/2024 10:02 AM [facility] URINE BLOOD 150 /uL(A) Negative cinthia/ul 02/27/2024 10:02 AM [facility] URINALYSIS COLOR Yellow 02/27/20 10:02 AM [facility] URINALYSIS CLARITY Clear 02/27/2024 10:02 AM [facility] WBC (Urine) 0-5 Negative, 0-5 /hpf 02/27/2024 10:02 AM T [facility] URINE RBC'S 3-5(A) Negative, 0-2 /hpf 02/27/2024 10:02 AM T [facility] EPITHELIAL CELLS Large amount squamous /lpf 02/27/2024 10:02 AM T [facility] BACTERIA, URINE Many(A) Negative /hpf 02/27/2024 10:02 AM [facility] Urine URINE SPECIMEN COLLECTION, CLEAN CATCH / Unknown Non-Phlebotomy Collection / Unknown 02/27/2024 9:27 AM CDT 02/27/2024 9:44 AM CDT us Luciana Calabrese REAMER HAND, NUT ROASTER URINE ORDERABLES Hillary l Result [facility] [address] [place] [address] * (ABNORMAL) CBC with Auto Differential (02/27/2024 9:27 AM CDT) WBC 6.56 4.00 - 12.00 10(3)/mcL 02/27/2024 9:47 AM CDT [facility] RBC 4.42 3.80 - 5.30 10(6)/mcL 02/27/2024 9:47 AM CDT [facility] HEMOGLOBIN (HGB) 13.3 12.0 - 15.8 g/dL 02/27/2024 9:47 AM CDT [facility] HEMATOCRIT (HCT) 40.3 36.0 - 47.0 % 02/27/2024 9:47 AM CDT [facility] MCV 91.2 82.0 - 96.0 fL 02/27/2024 9:47 AM CDT [facility] MCH 30.1 26.0 - 34.0 pg 02/27/2024 9:47 AM CDT [facility] MCHC 33.0 31.0 - 36.0 g/dL 02/27/2024 9:47 AM CDT [facility] PLATELET COUNT 413 140 - 440 10(3)/mcL 02/27/2024 9:47 AM CDT [facility] RDW 12.6 11.8 - 15.5 % 02/27/2024 9:47 AM CDT [facility] MPV 9.8 9.7 - 12.4 fL 02/27/2024 9:47 AM CDT [facility] NEUTROPHILS 68.4 47.0 - 73.0 % 02/27/2024 9:47 AM CDT [facility] LYMPHOCYTES 17.2(L) 18.0 - 42.0 % 02/27/2024 9:47 AM CDT [facility] MONOCYTES 13.9(H) 4.0 - 12.0 % 02/27/2024 9:47 AM CDT [facility] EOSINOPHILS 0.0 0.0 - 5.0 % 02/27/2024 9:47 AM CDT [facility] BASOPHILS 0.5 0.0 - 1.0 % 02/27/2024 9:47 AM CDT [facility] ABSOLUTE NEUTROPHILS 4.49 1.60 - 7.70 10(3)/[facility] 02/27/2024 9:47 AM CDT [facility] ABSOLUTE LYMPHOCYTES 1.13(L) 1.30 - 3.20 10(3)/[facility] 02/27/2024 9:47 AM CDT [facility] ABSOLUTE MONOCYTES 0.91 0.20 - 1.00 10(3)/[facility] 02/27/2024 9:47 AM CDT [facility] ABSOLUTE EOSINOPHIL 0.00 0.00 - 0.40 10(3)/[facility] 02/27/2024 9:47 AM CDT [facility] ABSOLUTE BASOPHILS 0.03 0.00 - 0.10 10(3)/[facility] [facility] 02/27/2024 9:47 AM CDT [facility] NRBC PER 100 WBC 0 02/27/20 9:47 AM CDT [facility] Blood Venipuncture / Unknown 02/27/2024 9:27 AM CDT 02/27/2024 9:44 AM CDT us Luciana Calabrese REAMER HAND, NUT ROASTER HEMATOLOGY ORDERABLES Final Result [facility] [place] [address] * Lipase [id number] (02/27/2024 9:27 AM CDT) Pathologist [facility] [place] LIPASE 24 8 - 78 U/L 02/27/2024 10:08 AM CDT [facility] Blood Venipuncture / Unknown 02/27/2024 9:27 AM CDT 02/27/2024 9:44 AM CDT us Luciana Calabrese APRN, CNP CHEMISTRY ORDERABLES Final Result [facility] [place] [address] * (ABNORMAL) Comprehensive Metabolic Panel (Cmp) [id number] (02/27/2024 9:27 AM CDT) SODIUM 138 136 - 145 mmol/L 02/27/2024 10:08 AM CDT [facility] POTASSIUM 3.8 3.5 - 5.1 mmol/L 02/27/2024 10:08 AM CDT [facility] CHLORIDE 104 98 - 107 mmol/L 02/27/2024 10:08 AM CDT [facility] CO2, VENOUS 21(L) 22 - 30 mmol/L 02/27/2024 10:08 AM CDT [facility] ANION GAP 16.8 <18.0 mmol/L 02/27/2024 10:08 AM CDT [facility] GLUCOSE 96 70 - 99 mg/dL 02/27/2024 10:08 AM CDT [facility] BUN 10 5 - 18 mg/dL 02/27/2024 10:08 AM CDT [facility] CREATININE, BLOOD 0.87 0.60 - 1.00 mg/dL 02/27/2024 10:08 AM CDT [facility] BUN/CREATININE RATIO 11(L) 12 - 20 ratio 02/27/2024 10:08 AM CDT [facility] TOTAL PROTEIN 8.4(H) 6.3 - 8.2 g/dL 02/27/2024 10:08 AM CDT [facility] ALBUMIN 4.7 3.5 - 5.0 g/dL 02/27/2024 10:08 AM CDT [facility] A/G RATIO 1.3 1.0 - 2.2 02/27/2024 10:08 AM CDT [facility] CALCIUM 10.3 8.7 - 10.5 mg/dL 02/27/2024 10:08 AM CDT [facility] T BILI 0.5 0.2 - 1.2 mg/dL 02/27/2024 10:08 AM CDT [facility] SGOT (AST) 20 19 - 46 U/L 02/27/2024 10:08 AM CDT [facility] SGPT (ALT) 18 0 - 55 U/L 02/27/2024 10:08 AM CDT [facility] ALKALINE PHOSPHATASE 43 40 - 150 U/L 02/27/2024 10:08 AM CDT [facility] GFR, ESTIMATED >60 >=60 02/27/2024 10:08 AM CDT [facility] Comment: Creatinine Clearance is the preferred criteria for selecting drug dose adjustments in renally impaired patients. ??The GFR is provided as additional pertinent clinical information. GFR is reported in mL/min/1.73 sq m. Calculation based on the Chronic Kidney Disease Epidemiology Collaboration (CKD- EPI) equation refit without adjustment for race. GFR, EST. >60 >=60 024 10:08 AM CDT [facility] GFR, EST. NONAFRICAN >60 >=60 02/27/2024 10:08 AM CDT [facility] Blood Venipuncture / Unknown 02/27/2024 9:27 AM CDT 02/27/2024 9:44 AM CDT us Luciana Calabrese APRN, NUT ROASTER CHEMISTRY ORDERABLES Final Result [facility] [place] [address] documented in this encounter Visit Diagnoses Diagnosis Viral gastroenteritis- Primary Intestinal infection due to other organism, not elsewhere classified documented in this encounter Administered Medications Inactive Administered Medications - up to 3 most recent administrations Medication Order MAR Action Action Date Dose Rate Site 0.9 % sodium chloride solution at 999 mL/hr, Intravenous, ONCE, 1 dose, On e 02/27/24 at 0930 New Bag 02/27/2024 9:27 AM CDT 1,000 mL 999 mL/hr ondansetron (ZOFRAN) injection 4 mg 4 mg, Intravenous, ONCE, 1 dose, On e 02/27/24 at 0930 Given 02/27/2024 9:27 AM CDT 4 mg documented in this encounter Active and Recently Administered Medications Times are shown in CDT. Scheduled Medication Order 02/25/2024 02/26/2024 02/27/2024 0.9 % sodium chloride solution (COMPLETED) at 999 mL/hr, Intravenous, ONCE, 1 dose, On Mon02/27/24 at 0930 0927 (New Bag - Prov ider: Fariba Mulligan RN)[id number] (Stopped - Provider: Fariba Mulligan RN) ondansetron (ZOFRAN) injection 4 mg (COMPLETED) 4 mg, Intravenous, ONCE, 1 dose, On 02/27/24 at 0930 0927 (Given - Provid er: Fariba Mulligan RN) documented in this encounter Additional Health Concerns Infection Onset Date Last Indicated Resolved Time COVID - 19 02/27/2024 02/27/2024 02/27/2024 10:2 8 AM CDT documented as of this encounter Care Teams Counter Tacker Relationship Specialty Start Date End Date Radha Martins MD [address] [place] [address] PCP - General Family Medicine 01/02/24 documented as of this encounter
--- OUTSIDE RECORDS SUMMARY | 2024-08-31 21:54 | XMS_ITS | Encounter Summary ---
Author Organization [facility] Address [address] [place] [address] Phone Care Team Providers Care Gas Tester Name Role Phone Radha Martins MD Primary Care Provider [phone] Reason for Referral * Laboratory Services (Routine) - Closed Specialty Diagnoses / Procedures Referred By Contac t Referred To Contact Diagnoses Thrombocytosis Procedures JAK2 V617F MUTATION DETECTION, [place] JAK2B Citlalli Talbert, PAC [address] [place] [address] Phone: tel: fax: Referral ID Status Reason Start Date Expiration Date Visits Re quested Visits Authorized [id number] Closed 02/20/2024 1 1 * Laboratory Services (Routine) - Closed Specialty Diagnoses / Procedures Referred By Contac t Referred To Contact Diagnoses Family history of blood coagulation disorder Procedures FACTOR 5 LEIDEN GENE MUTATION Citlalli Talbert PAC [address] [place] [address] Phone: tel: fax: Referral ID Status Reason Start Date Expiration Date Visits Re quested Visits Authorized [id number] Closed 02/20/2024 1 1 Reason for Visit * Reason Comments New Patient * Consult, Test & Initiate Treatment (Routine) - Closed Specialty Diagnoses / Procedures Referred By Contac t Referred To Contact Hematology and Oncology Diagnoses Family history of diseases of the blood and blood-forming organs and certain disorders involving the immune mechanism Radha Martins MD [address] [place] [id number] Phone: tel: fax: [facility] [address] [place] [phone] Phone: tel: fax: Referral ID Status Reason Start Date Expiration Date Visits Re quested Visits Authorized [id number] Closed 1 1 Encounter Details Date Type Department Care Team (Latest Contact Info) Description 02/20/2024 2:45 PM CDT Initial Consult [facility] [address] [place] [phone] Citlalli Talbert Kristyn, PAC [address] [place] [address] Thrombocytosis (Primary Dx); Family history of blood coagulation disorder; Elevated ferritin Discharge Disposition: Discharged to home or Selfcare [...] Sex Assigned at Female 10/25/2023 8:55 PM MEDICAL ACCOUNTANT Legal Sex Female 8:58 PM CDT Gender Identity Female 10/25/2023 8:55 PM MEDICAL ACCOUNTANT Sexual Orientation Not on file documented as of this encounter Last Filed Vital Signs Vital Sign Reading Time Taken Comments Blood Pressure 117/76 02/20/2024 2:36 PM CDT Pulse 84 02/20/2024 2:36 PM CDT Temperature 37 ??C (98.6 ??F) 02/20/2024 2:36 PM CDT Respiratory Rate - - Oxygen Saturation 99% 02/20/2024 2:36 PM CDT Inhaled Oxygen Concentration - - Weight 55.2 kg (121 lb 11.2 oz) 02/20/2024 2:36 PM CDT Height 154.9 cm (5' 1 ) 02/20/2024 2:36 PM CDT Body Mass Index 23 02/20/2024 2:36 PM CDT documented in this encounter Patient Instructions * Patient Instructions* Citlalli Talbert PAC - 02/20/2024 2:45 PM CDT Return in 2 weeks for labs. Would recommend follow-up discussion with clinic supervisor testing comes back confirming factor 5 Leiden. No intervention is required for factor 5 Leiden unless a clotting event occurs. Eliminate all vitamins and supplements at this time. Be sure to drink 64 oz of water per day. Reduce use of red bull and other stimulants to help facilitate sleep. Coffee, tea, dairy with meals may help reduce iron absorption and thereby reduce ferritin level. Return in approximately 4 weeks to review all test results. PLEASE READ: If you are required to [...] Progress Notes * Citlalli Talbert PAC - 02/20/2024 2:45 PM CDT Outpatient Hem/Onc Progress Note Rosalba So is a 18 y.o. female seen today for evaluation thrombocytosis, possible factor 5Leiden due to family history, elevated ferritin. Reports she has been taking a multivitamin for years as recommended by her previous primary care provider. Reports currently using contraceptive patch for diagnosis of endometriosis. Last menstrual cycle 01/12/24. Denies any significant concerns or complaints. Denies any history of clotting events. Her mother is positive for factor 5 Leiden. Reviewed patients past medical, surgical, social, and family history. Outpatient Medications Marked as Taking for the 02/20/24 encounter (Initial Consult) with Citllali Talbert Kristyn, [facility] Medication Sig Dispense Refill buPROPion (Wellbutrin XL) 150 MG XL tablet Take 150 mg by mouth every morning. lurasidone (LATUDA) 40 MG Tablet Take by mouth. prazosin (MINIPRESS) 2 MG Capsule Take 2 mg by mouth nightly. Allergies as of 02/20/2024 - Reviewed 02/20/2024 Allergen Reaction Noted Reglan [metoclopramide] Anxiety 09/04/2022 Past Medical History Positives Diagnosis Date Anxiety Migraines Past Surgical History: Procedure Laterality Date ADENOIDECTOMY TONSILLECTOMY Physical Exam GENERAL:Well developed, well nourished, in no acute distress. AAO x3. Cooperative. HEENT:Normocephalic. PERRLA. Nonicteric. NECK:Supple/ non tender/ full ROM. LYMPH NODES:No adenopathy. CARDIOVASCULAR:RRR/ S1S2/ No m/g/c/r. PULMONARY: Respirations easy and regular. Breath sounds clear bilaterally. No rhonchi/ rales/ wheezes. GI: Abdomen soft, nondistended. No tenderness, rebound, guarding or mass. No hepatosplenomegaly. Bowel sounds normoactive. MUSCULOSKELETAL:Full ROM all extremities. No tenderness/ swelling/ crepitus. SKIN: General-warm, pink and dry. No rashes/ lesions. PSYCHIATRIC:Euthymic. Affect congruent with mood. Normal thought processes. DATA: 01/19/24 CBC: WBC 9.6 Hgb 12.3 Hct 37.3 Platelets 485 ANC 6.8 ALC 2.3 Ferritin 162 Act Protein C 1.8 12/17/23 Von Willebrand's factor assessment normal INR 1.1 PT 11.4 APTT 28 Iron panel: Iron 71 TSat 18% Transferrin 316 TIBC 387 Ferritin 200 12/15/23 CBC WBC 10.6 Hgb 13.1 HCT 39.2 Plt 519 ANC 7.0 ALC 2.8 Assessment: Diagnoses and all orders for this visit: Thrombocytosis - COMPLETE BLOOD COUNT (CBC) WITH DIFF; Future - CMP (COMPREHENSIVE METABOLIC PANEL); Future - FOLIC ACID (FOLATE); Future - FERRITIN; Future - TRANSFERRIN; Future - FREE KAPPA & LAMBDA LIGHT CHAINS SERUM; Future - PERIPHERAL BLOOD, FLOW CYTOMETRY; Future - IMMUNOFIXATION W/ ELECTROPHORESIS SERUM; Future - ANTINUCLEAR ANTIBODY (ZACHARIAH), TITER IF POS; Future - C-REACTIVE PROTEIN (CRP) QUANT; Future - CYCLIC CITRULLINATED PEPTIDE 3; Future - ERYTHROCYTE SEDIMENTATION RATE (ESR); Future - RHEUMATOID FACTOR (RFQT) QUANT; Future - ERYTHROPOIETIN, SERUM, EPO; Future - IRON,TRANSFERN,CALC.TIBC,%SAT; Future - JAK2 V617F MUTATION DETECTION, [place] JAK2B; Future Family history of blood coagulation disorder - FACTOR 5 LEIDEN GENE MUTATION; Future Elevated ferritin Other orders - buPROPion (Wellbutrin XL) 150 MG XL tablet; Take 150 mg by mouth every morning. - prazosin (MINIPRESS) 2 MG Capsule; Take 2 mg by mouth nightly. - lurasidone (LATUDA) 40 MG Tablet; Take by mouth. Plan: Reviewed and discussed above results. Return in 2 weeks for labs. Would recommend follow-up discussion with clinic supervisor testing comes back confirming factor 5 Leiden. No intervention is required for factor 5 Leiden unless a clotting event occurs. Eliminate all vitamins and supplements at this time. Be sure to drink 64 oz of water per day. Reduce use of red bull and other stimulants to help facilitate sleep. Coffee, tea, dairy with meals may help reduce iron absorption and thereby reduce ferritin level. Return in approximately 4 weeks to review all test results. Diagnoses and all orders for this visit: Thrombocytosis - COMPLETE BLOOD COUNT (CBC) WITH DIFF; Future - CMP (COMPREHENSIVE METABOLIC PANEL); Future - FOLIC ACID (FOLATE); Future - FERRITIN; Future - TRANSFERRIN; Future - FREE KAPPA & LAMBDA LIGHT CHAINS SERUM; Future - PERIPHERAL BLOOD, FLOW CYTOMETRY; Future - IMMUNOFIXATION W/ ELECTROPHORESIS SERUM; Future - ANTINUCLEAR ANTIBODY (ZACHARIAH), TITER IF POS; Future - C-REACTIVE PROTEIN (CRP) QUANT; Future - CYCLIC CITRULLINATED PEPTIDE 3; Future - ERYTHROCYTE SEDIMENTATION RATE (ESR); Future - RHEUMATOID FACTOR (RFQT) QUANT; Future - ERYTHROPOIETIN, SERUM, EPO; Future - IRON,TRANSFERN,CALC.TIBC,%SAT; Future - JAK2 V617F MUTATION DETECTION, [place] JAK2B; Future Family history of blood coagulation disorder - FACTOR 5 LEIDEN GENE MUTATION; Future Elevated ferritin Other orders - buPROPion (Wellbutrin XL) 150 MG XL tablet; Take 150 mg by mouth every morning. - prazosin (MINIPRESS) 2 MG Capsule; Take 2 mg by mouth nightly. - lurasidone (LATUDA) 40 MG Tablet; Take by mouth. Return in about 4 weeks (around 03/19/2024) for Review labs/ tests after completed. The patient was given an opportunity to ask questions, and all questions answered to patient's satisfaction. Patient verbalizes understanding of the plan as outlined above. Patient Instructions Return in 2 weeks for labs. Would recommend follow-up discussion with clinic supervisor testing comes back confirming factor 5 Leiden. No intervention is required for factor 5 Leiden unless a clotting event occurs. Eliminate all vitamins and supplements at this time. Be sure to drink 64 oz of water per day. Reduce use of red bull and other stimulants to help facilitate sleep. Coffee, tea, dairy with meals may help reduce iron absorption and thereby reduce ferritin level. Return in approximately 4 weeks to review all test results. PLEASE READ: If you are required to [...] this encounter Miscellaneous Notes * Interdisciplinary - Natalie Sepulveda RTT - 02/20/2024 2:45 PM CDT Patient here for consult with Citlalli Talbert. Patient placed in room for appointment.Vitals taken patient denies changes or falls. Medication list reviewed. * Interdisciplinary - Natalie Sepulveda RTT - 02/20/2024 2:45 PM CDT Patient provided with AVS discussed next steps including labs to be completed and follow up date. Provided instruction on future testing and procedures as instructed by physician. Patient left officewith no further questions or concerns. documented in this encounter Plan of Treatment Upcoming Encounters Date Type Department Care Team (Late st Contact Info) Description 09/18/2024 1:00 PM MEDICAL ACCOUNTANT Lab [facility] [address] [place] [address] Citlalli Talbert Kristyn, PAC [address] [place] [address] Discharge Disposition: Discharged to home or Selfcare 09/25/2024 2:15 PM MEDICAL ACCOUNTANT Office [facility] [address] [place] [address] Citlalli Talbert January, [address] [place] [address] Discharge Disposition: Discharged to home or Selfcare Scheduled Orders Name Type Priority Associated Diagnoses Orde r Schedule PERIPHERAL BLOOD, FLOW CYTOMETRY Pathology Routine Thrombocytosis Expected: 02/20/2024, Expires: 06/07/2024 documented as of this encounter Results * JAK2 V617F MUTATION DETECTION, [place] JAK2B (03/05/2024 2:25 PM CDT) JAK2 RESULT see interpretation 4 4:11 PM CDT [facility] JAK2 V617F MUTATION DETECTION SEE NOTE 4 4:11 PM CDT [facility] Comment: Peripheral blood, JAK2 V617F mutation analysis: Negative for JAK2 V617F. A negative [id number] test result does not exclude the possibility of a myeloproliferative neoplasm (MPN). If clinical suspicion is high for primary myelofibrosis (PMF) or essential thrombocythemia (ET), consider additional testing for CALR with reflex to MPL (test ID: [id number]). If clinical suspicion is high for polycythemia vera, the test JAK2 Exon 12 and Other Non-V617F Mutational Detection (test ID: JAKXB or JAKXM) could be considered. Clinicopathologic correlation is recommended for a definitive diagnosis. Signing Pathologist: Ying Pandey M.D., Ph.D. ADDITIONAL INFORMATION Method summary - JAK2 V617F analysis: ??Quantitative, allele-specific polymerase chain reaction (PCR) assay was performed using extracted genomic DNA to evaluate for the point mutation causing JAK2 V617F. ??The analytic sensitivity of this assay has been determined at 0.06% (see [facility] Interpretive Handbook for method details). This test was developed and its performance characteristics determined by [facility] in a manner consistent with CLIA requirements. This test has not been cleared or approved by the U.S. Food and Drug Administration. Test Performed by: [facility] - [address] [address] Surgical Technology Instructor: Mckenzie Mensah Ph.D.; CLIA# [id number] Blood Venipuncture / Unknown 03/05/2024 2:25 PM CDT 03/05/2024 2:26 PM CDT us Citlalli Talbert [facility] SEND OUT GENETIC Hillary l Result [facility] * IRON,TRANSFERN,CALC.TIBC,%SAT (03/05/2024 2:25 PM CDT) Pathologist [facility] IRON 102 25 - 156 mcg/dL 03/05/2024 3:32 PM CDT [facility] TRANSFERRIN 351 180 - 382 mg/dL 03/05/2024 3:32 PM CDT [facility] TIBC, CALCULATED 439 265 - 497 mcg/dL 03/05/2024 3:32 PM CDT [facility] % SATURATION * 23 15 - 62 % 03/05/2024 3:32 PM CDT [facility] Blood Venipuncture / Unknown 03/05/2024 2:25 PM CDT 03/05/2024 2:26 PM CDT [facility] [address] PAC CHEMISTRY ORDERABLES Hillary l Result [facility] [address] [place] [address] * ERYTHROPOIETIN, SERUM, EPO (03/05/2024 2:25 PM CDT) [facility] ERYTHROPOIETIN, SERUM 4.5 2.6 - 18.5 mIU/mL 03/07/2024 3:49 PM CDT [facility] [employer] Comment: Test Performed by: [facility] [place] [address] Surgical Technology Instructor: Mckenzie Mensah Ph.D.; CLIA# [id number] Blood Venipuncture / Unknown 03/05/2024 2:25 PM CDT 03/05/2024 2:26 PM CDT [facility] LAB SEND OUTS Final Res ult OYE! * RHEUMATOID FACTOR (RFQT) QUANT (03/05/2024 2:25 PM CDT) [facility] RHEUMATOID FACTOR QT <13 <30 IU/mL 03/05/2024 4:04 PM CDT [facility] Blood Venipuncture / Unknown 03/05/2024 2:25 PM CDT 03/05/2024 2:26 PM CDT Narrative [facility] - 03/05/2024 4:04 PM CDT RHEUMATOID FACTORS CAN BE FOUND IN RHEUMATOID ARTHRITIS, SYPHILIS, VIRAL INFECTIONS, LEPROSY, CHRONIC LIVER DISEASE, NEOPLASMS, AND OTHER INFLAMMATORY CONDITIONS. RF PREVALENCE ALSO INCREASES WITH AGE. THUS A POSITIVE TEST IS NOT RESTRICTED TO RA. CONVERSELY, A NEGATIVE TEST DOES NOT RULE OUT RA, RHEUMATOID FACTORS ARE NOT DETECTABLE IN 10% OF ADULTS WITH THE DISEASE. [facility] CHEMISTRY ORDERABLES Hillary l Result Performing Organization Address City/[facility] Co de Phone Number [facility] [address] [place] [address] * ERYTHROCYTE SEDIMENTATION RATE (ESR) (03/05/2024 2:25 PM CDT) Pathologist [facility] ESR (SED RATE, ERYTHROCYTE SEDIMENTATION RATE) 12 <20 mm/h 03/05/2024 4:33 PM CDT [facility] Comment: Patients presenting with increased level of fibrinogen, gamma globulins, or abnormally shaped RBCs could affect the results for the erythrocyte sedimentation rate (ESR). Results should be clinically correlated. Blood Venipuncture / Unknown 03/05/2024 2:25 PM CDT 03/05/2024 2:26 PM CDT [facility] HEMATOLOGY ORDERABLES Fin al Result Performing Organization Address [facility]/ZIP Co de Phone Number [facility] [address] [place] [address] * CYCLIC CITRULLINATED PEPTIDE 3 (03/05/2024 2:25 PM CDT) [facility] IGG <0.5 <3.0 U/mL 03/08/2024 3:4 4 PM CDT [facility] Blood Venipuncture / Unknown 03/05/2024 2:25 PM CDT 03/05/2024 2:26 PM CDT Narrative [facility] - 03/08/2024 3:44 PM CDT Antibody testing was performed by multiplex flow immunoassay on the Partender platform. [facility] IMMUNOLOGY ORDERABLES Fin al Result Performing Organization Address City/[facility]/ZIP Co de Phone Number [facility] [address] [place] [address], [place] * C-REACTIVE PROTEIN (CRP) QUANT (03/05/2024 2:25 PM CDT) Pathologist [facility] C-REACTIVE PROTEIN <0.10 <0.50 mg/dL 03/05/2024 4:48 PM CDT [facility] Blood Venipuncture / Unknown 03/05/2024 2:25 PM CDT 03/05/2024 2:26 PM CDT [facility] CHEMISTRY ORDERABLES Hillary l Result Performing Organization Address [facility] Co de Phone Number [facility] [address] [place] [address] * ANTINUCLEAR ANTIBODY (ZACHARIAH), TITER IF POS (03/05/2024 2:25 PM CDT) Pathologist [facility] ZACHARIAH SCREEN Negative Negative titer 03/06/2024 10:29 AM CDT [facility] Comment: Antinuclear autoantibodies not detected by IFA at a 1:80 screening dilution of HEp-2 cells. Blood Venipuncture / Unknown 03/05/2024 2:25 PM CDT 03/05/2024 2:26 PM CDT [facility] IMMUNOLOGY ORDERABLES Fin al Result Performing Organization Address City/[facility]/ZIP Co de Phone Number [facility] [address] [place] [address], [place] * (ABNORMAL) IMMUNOFIXATION W/ ELECTROPHORESIS SERUM (03/05/2024 2:25 PM CDT) Pathologist [facility] TOTAL PROTEIN 7.5 6.3 - 8.2 g/dL 03/06/2024 5:20 PM CDT [facility] % ALBUMIN 53.8(L) 55.8 - 66.7 % 03/06/2024 5:20 PM CDT [facility] ALBUMIN SERUM 4.0 2.5 - 5.4 g/dL 03/06/2024 5:20 PM CDT [facility] % ALPHA 1 GLOBULIN 4.1 2.9 - 4.9 % 03/06/2024 5:20 PM CDT [facility] ALPHA 1 0.3 0.2 - 0.4 g/dL 03/06/2024 5:20 PM CDT [facility] % ALPHA 2 GLOBULIN 11.3 7.1 - 11.8 % 03/06/2024 5:20 PM CDT [facility] ALPHA 2 0.8 0.5 - 1.0 g/dL 03/06/2024 5:20 PM CDT [facility] % BETA 14.9(H) 8.4 - 13.1 % 03/06/2024 5:20 PM CDT [facility] BETA-GLOBULIN 1.1 0.5 - 1.1 g/dL 03/06/2024 5:20 PM CDT [facility] % GAMMA GLOBULIN 15.9 11.1 - 18.8 % 03/06/2024 5:20 PM CDT [facility] GAMMA 1.2 0.7 - 1.5 g/dL 03/06/2024 5:20 PM CDT [facility] IMMUNOGLOBULIN G 1,086 552 - 1,631 mg/dL 03/06/2024 5:20 PM CDT [facility] IMMUNOGLOBULIN A 181 65 - 421 mg/dL 03/06/2024 5:20 PM CDT [facility] IMMUNOGLOBULIN M 203 33 - 293 mg/dL 03/06/2024 5:20 PM CDT [facility] INTERPRETATION SERUM No abnormal protein band is detected by serum protein electrophoresis. Serum immunofixation electrophoresis is negative for monoclonal immunoglobulins. Reviewed by Ivan Hoffman, Ph.D. 03/06/2024 5:20 PM CDT [facility] A/G RATIO, SERUM 1.2 03/06/20 5:20 PM CDT [facility] Blood Venipuncture / Unknown 03/05/2024 2:25 PM CDT 03/05/2024 2:26 PM CDT Narrative [facility] - 03/06/2024 5:20 PM CDT Reviewed By Jeremy Doyle M.D. [facility] PAC CHEMISTRY ORDERABLES Hillary l Result Performing Organization Address City/[facility] Co de Phone Number [facility] [address] [place] [address], [place] * (ABNORMAL) FREE KAPPA & LAMBDA LIGHT CHAINS SERUM (03/05/2024 2:25 PM CDT) Free Nadine Lt Chn 20.99(H) 3.30 - 19.40 mg/L 03/06/2024 11:16 AM CDT [facility] Free Lambda Lt Chn 19.75 5.71 - 26.30 mg/L 03/06/2024 11:16 AM CDT [facility] free eugenio abernathy ratio 1.06 0.26 - 1.65 03/06/2024 11:16 AM CDT [facility] Blood Venipuncture / Unknown 03/05/2024 2:25 PM CDT 03/05/2024 2:26 PM CDT [facility] PAC CHEMISTRY ORDERABLES Hillary l Result Performing Organization Address City/[facility] Co de Phone Number [facility] [address] [place] [address], [place] * FERRITIN (03/05/2024 2:25 PM CDT) FERRITIN 199 5 - 204 ng/mL 03/05/2024 3:50 PM CDT [facility] Blood Venipuncture / Unknown 03/05/2024 2:25 PM CDT 03/05/2024 2:26 PM CDT [facility] PAC CHEMISTRY ORDERABLES Hillary l Result Performing Organization Address City/[facility]/ZIP Co de Phone Number [facility] [address] [place] [address] * FOLIC ACID (FOLATE) (03/05/2024 2:25 PM CDT) Pathologist [facility] FOLATE 7.3 7.0 - 31.4 ng/mL 03/05/2024 4:46 PM CDT [facility] IS THE PATIENT REQUIRED TO BE FASTING? No 03/05/2024 4:46 PM CDT [facility] Blood Venipuncture / Unknown 03/05/2024 2:25 PM CDT 03/05/2024 2:26 PM CDT [facility] PAC CHEMISTRY ORDERABLES Hillary l Result Performing Organization Address City/[facility]/ZIP Co de Phone Number [facility] [address] [place] [address] * (ABNORMAL) CMP (COMPREHENSIVE METABOLIC PANEL) (03/05/2024 2:25 PM CDT) SODIUM 142 136 - 145 mmol/L 03/05/2024 3:32 PM CDT [facility] POTASSIUM 3.3(L) 3.5 - 5.1 mmol/L 03/05/2024 3:32 PM CDT [facility] CHLORIDE 106 98 - 107 mmol/L 03/05/2024 3:32 PM CDT [facility] CO2, VENOUS 22 22 - 30 mmol/L 03/05/2024 3:32 PM CDT [facility] ANION GAP 17.3 <18.0 mmol/L 03/05/2024 3:32 PM CDT [facility] GLUCOSE 81 70 - 99 mg/dL 03/05/2024 3:32 PM CDT [facility] BUN 9 5 - 18 mg/dL 03/05/2024 3:32 PM T [facility] CREATININE, BLOOD 0.83 0.60 - 1.00 mg/dL 03/05/2024 3:32 PM CDT [facility] BUN/CREATININE RATIO 11(L) 12 - 20 ratio 03/05/2024 3:32 PM CDT [facility] TOTAL PROTEIN 8.2 6.3 - 8.2 g/dL 03/05/2024 3:32 PM CDT [facility] ALBUMIN 4.6 3.5 - 5.0 g/dL 03/05/2024 3:32 PM CDT [facility] A/G RATIO 1.3 1.0 - 2.2 03/05/2024 3:32 PM CDT [facility] CALCIUM 9.9 8.7 - 10.5 mg/dL 03/05/2024 3:32 PM CDT [facility] T BILI 0.3 0.2 - 1.2 mg/dL 03/05/2024 3:32 PM CDT [facility] SGOT (AST) 25 5 - 34 U/L 03/05/2024 3:32 PM T [facility] SGPT (ALT) 54 0 - 55 U/L 03/05/2024 3:32 PM T [facility] ALKALINE PHOSPHATASE 49 40 - 150 U/L 03/05/2024 3:32 PM T [facility] IS THE PATIENT REQUIRED TO BE FASTING? No 03/05/2024 3:32 PM T [facility] GFR, ESTIMATED >60 >=60 03/05/2024 3:32 PM [facility] Comment: Creatinine Clearance is the preferred criteria for selecting drug dose adjustments in renally impaired patients. ??The GFR is provided as additional pertinent clinical information. GFR is reported in mL/min/1.73 sq m. Calculation based on the Chronic Kidney Disease Epidemiology Collaboration (CKD- EPI) equation refit without adjustment for race. GFR, EST. >60 >=60 024 3:32 PM CDT [facility] GFR, EST. NONAFRICAN >60 >=60 03/05/2024 3:32 PM CDT [facility] Blood Venipuncture / Unknown 03/05/2024 2:25 PM CDT 03/05/2024 2:26 PM CDT us Citlallizeus Talbert PAC CHEMISTRY ORDERABLES Hillary l Result [facility] [address] [place] [address] * (ABNORMAL) FACTOR 5 LEIDEN GENE MUTATION (03/05/2024 2:25 PM CDT) FACTOR 5 LEIDEN MUT Heterozygous genotype(A) Normal (Homozygo us wild-type genotype) [facility] CEPHE[facility] GENEXPERT 03/06/2024 6:45 AM CDT [facility] Comment: Sample carries both alleles, one wild-type and one mutant (Factor V Leiden) [id number] allele. ??The Factor V Leiden mutation in the Factor V gene is one of the most common causes of inherited thrombophilia. This mutation causes resistance to degradation of activated Factor V protein by activated protein C (APC). Individuals positive for a point mutation at position 1691 of the Factor V gene (Factor V Leiden mutation) have elevated risk for venous thrombosis. ??In addition, other family members may also be carriers of the mutation and similarly at risk. ??Consider genetic counseling and DNA testing for other at-risk family members. Assay performed by real time PCR, with allele-specific probe. ??Since genetic variation and other factors can affect the accuracy of direct mutation testing, these results should be interpreted in light of clinical and familial data. Blood Venipuncture / Unknown 03/05/2024 2:25 PM CDT 03/05/2024 2:26 PM CDT us [facility]bert PAC IMMUNOLOGY ORDERABLES Fin al Result [facility] [address] [place] [address], documented in this encounter Visit Diagnoses Diagnosis Thrombocytosis- Primary Essential thrombocythemia Family history of blood coagulation disorder Elevated ferritin Other abnormal blood chemistry documented in this encounter Care Teams Gas Tester Relationship Specialty Start Date End Date Radha Martins MD [address] [place] [address] PCP - General Family Medicine 01/02/24 documented as of this encounter
--- OUTSIDE RECORDS SUMMARY | 2024-08-31 21:54 | XMS_ITS | Encounter Summary ---
Author Organization [facility] Address [address] [place] [address] Care Team Providers Care Casualty Insurance Claim Adjuster Name Role Phone Nelly Marcus MD Primary Care Provider [phone] Reason for Visit * Reason Comments Headache c/o headaches for se veral years, c/o headaches 1-2/week Encounter Details Date Type Department Care Team (Latest Contact Info) Description 04/27/2016 12:18 PM CDT - 04/27/2016 11:59 PM CDT Hospital Encounter [facility] Pediatrics - Neurology [address] [place] [id number] Darwin Leal MD [address] [place] [id number] Discharge Disposition: Home or Self Care Social [...] Sign Reading Time Taken Comments Blood Pressure 90/60 04/27/2016 12:29 PM CDT Pulse - - Temperature - - Respiratory Rate - - Oxygen Saturation - - Inhaled Oxygen Concentration - - Weight 52.5 kg (115 lb 11.9 oz) 016 12:29 PM CDT Height 150.9 cm (4' 11.41 ) 04/27/2016 12:29 PM CDT Body Mass Index 23.06 04/27/2016 12:29 PM CDT Body Mass Index Percentile 87.99% 04/27 12:29 PM CDT Growth Chart: [facility] (Girls, 2- 20 Years) documented in this encounter Discharge Instructions * Patient Instructions* Darwin Leal MD - 04/27/2016 1:57 PM CDT For your migraine headaches, we will start a daily medication called Topamax. This will be 25 mg, (1 tablet) nightly. Will continue Maxalt 5 mg which should be taken as needed for migraines. Take right at the onset ofsevere migraines. Do not take more than 2 in 24 hours. 1. Keep a headache diary 2. Maintain active lifestyle 3. Eat a healthy diet, and do not skip meals 4. Drink plenty of water, and avoid caffeine regularly. 5. Sleep: 1. Maintain good sleep routine. 2. Avoid distractions at bedtime such as TV, computer. 3. Get at least 8-10 hours of sleep nightly 6. Do not use pain medication (such as Tylenol, Ibuprofen) more than 3-4 times/week in order to avoid medication overuse headaches Follow up in 3 months. Please call our office in 4-6 weeks so that we can follow up on how her headaches are doing and if we need to make any further adjustments. documented in this encounter Medications at Time of Discharge Medication Sig Dispensed Refills Start Date End Date Xmpvuqd-Djtaqkpesqjql-Po ffeine (EXCEDRIN MIGRAINE PO) Take 2 Tabs by mouth 020 rizatriptan (MAXALT) 5 MG tablet Take 1 Tab by mouth once as needed for Migraine (Do not take more than two in 24 hours.) 8 Tab 5 04/27/2016 07/27/2016 topiramate (TOPAMAX) 25 MG tablet Take 1 Tab by mouth at bedtime 30 Tab 5 04/27/2016 07/27/2016 documented as of this encounter Progress Notes * Darwin Leal MD - 04/27/2016 12:33 PM CDT Images from the original note were not included. Pediatric Neurology Clinic new Visit Patient Name: Rosalba So : 2005 Date of Encounter: 04/27/2016 I had the pleasure of seeing your patient, Rosalba in the Neurology Clinic at [facility]. She was accompanied by her Mother and Father. History of Present Illness: Rosalba So is a 10 y.o. year old female who presents today to neurology clinic for evaluation due to headaches. Headaches first started about 2 years ago and have increased gradually over thattime. Since the last 6 months now they occur about 1-2 times a week, but she can go about 1-2 weekswithout a headache. Headaches are all over and described as being a hammer type pain. The pain can l ast for hours but she has never had a headache which lasted for days. No nocturnal headaches. No worsening with position. Occasional nausea with occasional vomiting. Photophobia and phonophobia are present. States prior to headache she almost always has unilateral arm tingling which can be either side but never bilaterally. No weakness. Occasional dizziness. No LOC. Pain is made worse by activityand better by resting in a dark room. Has taken excedrine migraine about 1-2 times a week which helps with the pain. Maxalt was started at [facility] about 2 years ago and she would take it twice a month which would occasionally help with the pain. Has not taken this in the last 2 months due to no more refills. Mom and maternal aunt have a family history of migraines. She lives in a split householdspending half the time with mom and half the time with dad. Of note, prior to today's visit, fatherpulled me aside to discuss that mother is a drug user and that if any medications were to be prescribed, not to provide a physical prescription, and instead only use an electronic prescription directto the pharmacy. Family lives in [place]. She is now in the 6th grade and mostly got A's and B's in the fifth grade. Would miss about a half day or a full day once a month of school due to headaches. Drinks a little water. Occasional caffeine use. Goes to bed at 10PM and wakes up at 7:30AM. Does not snore (Is s/p T&A). Will frequently skip breakfast and other meals. No recent infections or he ad trauma. Has already had menarche with no association of headaches with periods. Past Medical History Medical History: None Family history: Mother and maternal aunt have migraines. Social History: Father and mother with split custody. Currently in 6th grade and doing well. Occasional social stressors with friends. No bullying. Father smokes at home. Mother reported drug user per father. Current Medications ??? topiramate (TOPAMAX) 25 MG tablet Take 1 Tab by mouth at bedtime ??? rizatriptan (MAXALT) 5 MG tablet Take 1 Tab by mouth once as needed for Migraine (Do not take more than two in 24 hours.) ??? Thjovff-Aoswdchgahldb-Pmnnqkkf (EXCEDRIN MIGRAINE PO) Take 2 Tabs by mouth Allergies No Known Allergies Review of Systems Review of Systems Constitutional: Negative for fever. HENT: Negative for congestion and sore throat. Eyes: Negative for blurred vision. Respiratory: Negative for cough, shortness of breath and wheezing. Cardiovascular: Negative for chest pain and palpitations. Gastrointestinal: Positive for nausea and vomiting. Negative for abdominal pain, diarrhea and constipation. Musculoskeletal: Negative for back pain and neck pain. Skin: Negative for rash. Neurological: Positive for dizziness, tingling and headaches. Negative for tremors, focal weakness,seizures, loss of consciousness and weakness. Psychiatric/Behavioral: Negative for substance abuse. The patient is not nervous/anxious and does not have insomnia. Vital Signs Height: Height: 150.9 cm (4' 11.41 ) Weight: Weight: 52.5 kg (115 lb 11.9 oz) 76%ile (Z=0.69) based on CDC 2-20 Years dpuzrm-nxb-fjp data using vitals from 03/28/2016 from contact on 04/26/2016. Blood Pressure: BP Readings from Last 1 Encounters: 04/27/16 90/60 BP: 90/60 mmHg Blood pressure percentiles are 7% systolic and 40% diastolic based on 2000 NHANES data. Blood pressure percentile targets: 90: 119/77, 95: 123/81, 99 + 5 mmH/93. Body mass index is 23.06 kg/(m^2). 23%ile (Z=-0.73) based on CDC 2-20 Years pjshnay-srg-pdv data using vitals from 04/27/2016. 77%ile (Z=0.73) based on CDC 2-20 Years sammgp-pze-cvt data using vitals from 04/27/2016. 88%ile (Z=1.17) based on CDC 2-20 Years BMI-for-age data using vitals from 04/27/2016. Physical Exam General: well developed, well nourished CV: RRR Resp: CTAB Neurological Exam: MS: awake, alert, appropriate for age Cranial Nerves: II: Visual bañuelos intact, Fundoscopic exam showing sharp discs bilaterally with visualized venous pulsations. III:PERRL 4-3 mm bilaterally III,IV,: EOMI, no [...] in all extremities Sensory: Intact to light touch, pin prick, and vibration Cerebellar: Normal FNF and ANA's. Steady in Romberg stance Gait: Normal toe, heel, and tandem gait. No ataxia. Assessment and Plan Chronic migraine without aura without status migrainosus, not intractable Assessment: 10 year old girl, previously healthy, [...] No vision, speech, or strength changes. + familyhistory of migraines. Given their description, these headaches are likely migrainous in origin and given their frequency, she would benefit from prophylactic management in addition to abortive therapy. Plan: - Discussed appropriate headache hygiene with at least 8 glasses of water a day, decreased caffeineintake, at least 8 hours of sleep a night, 3 regular meals a day without skipped meals, and decreased stressors. - Will start Topamax 25 mg, nightly as daily prophylactic medication. - Maxalt 5 mg PRN as abortive migraine medication. - Follow up in 3 months, but may call our clinic in 4-6 weeks for follow up and we may increase Topamax should headaches continue. Follow-Up Return in about 3 months (around 07/27/2016). Darwin Leal MD CC: Nelly Marcus MD [address] [place] [id number] Date: 04/27/2016 2:03 PM Associated attestation - Aleksandr Arnold MD - 04/27/2016 4:51 PM CDT Peds Neuro Attending Note JOSE: 04/27/2016 Pt seen and examined with - please see above note for details. Reviewed history and examined patient. Agree with note/plan as above. Michael is 10 years old female with no significant PMH here for headaches which has migraine characteristic . She has been having headaches for 2 years. On exam she is alert awake oriented x 4. CN II to XII intact and symmetric including normal fundoscopy exam . Motor exam showed normal muscle tone and bulk with 5/5 strength throughout. DTR 2 + throughout with plantars downgoing. Sensations intact to LT. Coordination tested by FNF and rapid alternative movements is intact . Gait normal . Able to do heel toe and tandem walking. Agreed with life style adaptations, starting Topamaxat 25 mg QHS , using Maxalt for acute migraine . Side effect profile if Topamax and Maxalt discussed with parents. documented in this encounter Plan of Treatment Not on file documented as of this encounter Visit Diagnoses Diagnosis Chronic migraine without aura without status migrainosus, not intractable- Primary Chronic migraine without aura, without mention of intractable migraine without mention of status migrainosus * Assessment & Plan Note - Darwin Leal MD - 04/27/2016 1:37 PM CDTAssociated Problem(s): Chronic migraine without aura without status migrainosus, not intractable Assessment: 10 year old girl, previously healthy, [...] No vision, speech, or strength changes. + familyhistory of migraines. Given their description, these headaches are likely migrainous in origin and given their frequency, she would benefit from prophylactic management in addition to abortive therapy. Plan: - Discussed appropriate headache hygiene with at least 8 glasses of water a day, decreased caffeineintake, at least 8 hours of sleep a night, 3 regular meals a day without skipped meals, and decreased stressors. - Will start Topamax 25 mg, nightly as daily prophylactic medication. - Maxalt PRN as abortive migraine medication. - Follow up in 6 months, but may call our clinic in 4-6 weeks for follow up and we may increase Topamax should headaches continue. documented in this encounter Care Teams Casualty Insurance Claim Adjuster Relationship Specialty [place] [address] [place] [id number] PCP - General Pediatrics 03/30/16 09/16/19 documented as of this encounter
--- OUTSIDE RECORDS SUMMARY | 2024-08-31 21:54 | XMS_ITS | Encounter Summary ---
Author Organization [facility] Address [address] [place] [address] Phone Care Team Providers Care Freight Separator Name Role Phone Radha Martins MD Primary Care Provider [phone] Reason for Visit * Laboratory Services (Routine) - Closed Specialty Diagnoses / Procedures Referred By Contac t Referred To Contact Diagnoses Family history of blood coagulation disorder Procedures FACTOR 5 LEIDEN GENE MUTATION Citlalli Talbert, PAC [address] [place] [address] Phone: tel: fax: Referral ID Status Reason Start Date Expiration Date Visits Re quested Visits Authorized [id number] Closed 02/20/2024 1 1 Encounter Details Date Type Department Care Team (Late st Contact Info) Description 03/05/2024 2:20 PM CDT Lab [facility] Oncology Services [address] [place] [address] Citlalli Talbert Kristyn, PAC [address] [place] [address] Family history of blood coagulation disorder; Thrombocytosis Discharge Disposition: Discharged to home or Selfcare [...] Sex Assigned at Female 10/25/2023 8:55 PM CORPORATE COUNSELOR Legal Sex Female 8:58 PM CDT Gender Identity Female 10/25/2023 8:55 PM CORPORATE COUNSELOR Sexual Orientation Not on file documented as of this encounter Progress Notes * Veda Serrano RN - 03/05/2024 2:20 PM CDT Pt ambulated into lab room in stable condition. Labs drawn per MD orders peripherally x1 attempt. Site secured. Pt discharged in stable condition. documented in this encounter Plan of Treatment Upcoming Encounters Date Type Department Care Team (Late st Contact Info) Description 09/18/2024 1:00 PM CORPORATE COUNSELOR Lab [facility] Oncology Services [address] [place] [address] TalbertCitlalli regalado Kristyn, PAC [address] [place] [address] Discharge Disposition: Discharged to home or Selfcare 09/25/2024 2:15 PM CORPORATE COUNSELOR Office Visit [facility] [address] [place] [address] [facility] Citlalli Kristyn, PAC [address] [place] [address] Discharge Disposition: Discharged to home or Selfcare documented as of this encounter Procedures Procedure Name Priority Date/Time Associated Diagnosis Comments FACTOR 5 LEIDEN GENE MUTATION Routine 03/05/2024 2:25 PM CDT Family history of blood coagulation disorder CYCLIC CITRULLINATED PEPTIDE 3 Routine 03/05/2024 2:25 PM CDT Thrombocytosis IRON,TRANSFERN,CALC.TIB C,%SAT Routine 03/05/2024 2:25 PM CDT Thrombocytosis ERYTHROPOIETIN, SERUM, EPO Routine 03/05/2024 2:25 PM CDT Thrombocytosis CBC WITH AUTO DIFFERENTIAL Routine 03/05/2024 2:25 PM CDT Thrombocytosis JAK2 V617F MUTATION DETECTION, MADISON JAK2B Routine 03/05/2024 2:25 PM CDT Thrombocytosis FREE KAPPA & LAMBDA LIGHT CHAINS SERUM Routine 03/05/2024 2:25 PM CDT Thrombocytosis ERYTHROCYTE SEDIMENTATION RATE (ESR) Routine 03/05/2024 2:25 PM CDT Thrombocytosis RHEUMATOID FACTOR (RFQT) QUANT Routine 03/05/2024 2:25 PM CDT Thrombocytosis IMMUNOFIXATION W/ ELECTROPHORESIS SERUM Routine 03/05/2024 2:25 PM CDT Thrombocytosis FOLIC ACID (FOLATE) Routine 03/05/2024 2 :25 PM CDT Thrombocytosis FERRITIN Routine 03/05/2024 2:25 PM CDT Thrombocytosis CMP (COMPREHENSIVE METABOLIC PANEL) Routine 03/05/2024 2:25 PM CDT Thrombocytosis COMPLETE BLOOD COUNT (CBC) WITH DIFF Routine 03/05/2024 2:25 PM CDT Thrombocytosis C-REACTIVE PROTEIN (CRP) QUANT Routine 03/05/2024 2:25 PM CDT Thrombocytosis ANTINUCLEAR ANTIBODY (ZACHARIAH), TITER IF POS Routine 03/05/2024 2:25 PM CDT Thrombocytosis documented in this encounter Results * (ABNORMAL) CBC WITH AUTO DIFFERENTIAL (03/05/2024 2:25 PM CDT) WBC 9.34 4.00 - 12.00 10(3)/mcL 03/05/2024 3:20 PM CDT [facility] RBC 4.58 3.80 - 5.30 10(6)/mcL 03/05/2024 3:20 PM CDT [facility] HEMOGLOBIN (HGB) 13.8 12.0 - 15.8 g/dL 03/05/2024 3:20 PM CDT [facility] HEMATOCRIT (HCT) 41.4 36.0 - 47.0 % 03/05/2024 3:20 PM CDT [facility] MCV 90.4 82.0 - 96.0 fL 03/05/2024 3:20 PM CDT [facility] MCH 30.1 26.0 - 34.0 pg 03/05/2024 3:20 PM CDT [facility] MCHC 33.3 31.0 - 36.0 g/dL 03/05/2024 3:20 PM CDT [facility] PLATELET COUNT 652(H) 140 - 440 10(3)/[facility] 03/05/2024 3:20 PM CDT [facility] RDW 12.2 11.8 - 15.5 % 03/05/2024 3:20 PM CDT [facility] MPV 9.9 9.7 - 12.4 fL 03/05/2024 3:20 PM CDT [facility] NEUTROPHILS 67.0 47.0 - 73.0 % 03/05/2024 3:20 PM CDT [facility] LYMPHOCYTES 25.6 18.0 - 42.0 % 03/05/2024 3:20 PM CDT [facility] MONOCYTES 6.0 4.0 - 12.0 % 03/05/2024 3:20 PM CDT [facility] EOSINOPHILS 0.7 0.0 - 5.0 % 03/05/2024 3:20 PM CDT [facility] BASOPHILS 0.7 0.0 - 1.0 % 03/05/2024 3:20 PM CDT [facility] ABSOLUTE NEUTROPHILS 6.25 1.60 - 7.70 10(3)/mcL 03/05/2024 3:20 PM CDT [facility] ABSOLUTE LYMPHOCYTES 2.39 1.30 - 3.20 10(3)/mcL 03/05/2024 3:20 PM CDT [facility] ABSOLUTE MONOCYTES 0.56 0.20 - 1.00 10(3)/[facility] 03/05/2024 3:20 PM CDT [facility] ABSOLUTE EOSINOPHIL 0.07 0.00 - 0.40 10(3)/mcL 03/05/2024 3:20 PM CDT [facility] ABSOLUTE BASOPHILS 0.07 0.00 - 0.10 10(3)/[facility] 03/05/2024 3:20 PM CDT [facility] NRBC PER 100 WBC 0 03/05/20 3:20 PM CDT [facility] Blood Venipuncture / Unknown 03/05/2024 2:25 PM CDT 03/05/2024 2:26 PM CDT Citlalli Talbert PAC HEMATOLOGY ORDERABLES Fin al Result [facility] [address] [place] [address] * IRON,TRANSFERN,CALC.TIBC,%SAT (03/05/2024 2:25 PM CDT) IRON 102 25 - 156 mcg/dL 03/05/2024 3:32 PM CDT [facility] TRANSFERRIN 351 180 - 382 mg/dL 03/05/2024 3:32 PM CDT [facility] TIBC, CALCULATED 439 265 - 497 mcg/dL 03/05/2024 3:32 PM CDT [facility] % SATURATION * 23 15 - 62 % 03/05/2024 3:32 PM CDT [facility] Blood Venipuncture / Unknown 03/05/2024 2:25 PM CDT 03/05/2024 2:26 PM CDT [facility] PAC CHEMISTRY ORDERABLES Hillary l Result [facility] [address] [place] [address] * ERYTHROPOIETIN, SERUM, EPO (03/05/2024 2:25 PM CDT) Pathologist [facility] ERYTHROPOIETIN, SERUM 4.5 2.6 - 18.5 mIU/mL 03/07/2024 3:49 PM CDT [facility] Comment: Test Performed by: [facility] [place] [address] Cement Finisher Apprentice: Mckenzie Mensah Ph.D.; CLIA# [id number] Blood Venipuncture / Unknown 03/05/2024 2:25 PM CDT 03/05/2024 2:26 PM CDT [facility] SEND OUTS Final Res ult [facility] [place] * RHEUMATOID FACTOR (RFQT) QUANT (03/05/2024 2:25 PM CDT) [facility] RHEUMATOID FACTOR QT <13 <30 IU/mL 03/05/2024 4:04 PM CDT [facility] Blood Venipuncture / Unknown 03/05/2024 2:25 PM CDT 03/05/2024 2:26 PM CDT Narrative [facility] - 03/05/2024 4:04 PM [...] IN 10% OF ADULTS WITH THE DISEASE. [facility] PAC CHEMISTRY ORDERABLES Hillary l Result Performing Organization Address [facility] Co de Phone Number [facility] [address] [place] [address] * ERYTHROCYTE SEDIMENTATION RATE (ESR) (03/05/2024 2:25 PM CDT) ESR (SED RATE, ERYTHROCYTE SEDIMENTATION RATE) 12 <20 mm/h 03/05/2024 4:33 PM CDT [facility] Comment: Patients presenting with increased level of fibrinogen, gamma globulins, or abnormally shaped RBCs could affect the results for the erythrocyte sedimentation rate (ESR). Results should be clinically correlated. Blood Venipuncture / Unknown 03/05/2024 2:25 PM CDT 03/05/2024 2:26 PM CDT [facility] HEMATOLOGY ORDERABLES Fin al Result Performing Organization Address [facility] Co de Phone Number [facility] [address] [place] [address] * CYCLIC CITRULLINATED PEPTIDE 3 (03/05/2024 2:25 PM CDT) Pathologist [facility] CCP IGG <0.5 <3.0 U/mL 03/08/2024 3:4 4 PM CDT [facility] Blood Venipuncture / Unknown 03/05/2024 2:25 PM CDT 03/05/2024 2:26 PM CDT Narrative [facility] - 03/08/2024 3:44 PM CDT Antibody testing was performed by multiplex flow immunoassay on the Moq[employer] platform. [facility] IMMUNOLOGY ORDERABLES Fin al Result Performing Organization Address [facility] Co de Phone Number [facility] [address] [place] [address], [place] * C-REACTIVE PROTEIN (CRP) QUANT (03/05/2024 2:25 PM CDT) Pathologist [facility] C-REACTIVE PROTEIN <0.10 <0.50 mg/dL 03/05/2024 4:48 PM CDT [facility] Blood Venipuncture / Unknown 03/05/2024 2:25 PM CDT 03/05/2024 2:26 PM CDT [facility] CHEMISTRY ORDERABLES Hillary l Result Performing Organization Address City/[facility]/ZIP Co de Phone Number [facility] [address] [place] [address] * ANTINUCLEAR ANTIBODY (ZACHARIAH), TITER IF POS (03/05/2024 2:25 PM CDT) [facility] ZACHARIAH SCREEN Negative Negative titer 03/06/2024 10:29 AM CDT [facility] Comment: Antinuclear autoantibodies not detected by IFA at a 1:80 screening dilution of HEp-2 cells. Blood Venipuncture / Unknown 03/05/2024 2:25 PM CDT 03/05/2024 2:26 PM CDT [facility] IMMUNOLOGY ORDERABLES Fin al Result Performing Organization Address [facility] Co de Phone Number [facility] [address] [place] [address], * (ABNORMAL) IMMUNOFIXATION W/ ELECTROPHORESIS SERUM (03/05/2024 2:25 PM CDT) Pathologist [facility] TOTAL PROTEIN 7.5 6.3 - 8.2 g/dL 03/06/2024 5:20 PM CDT [facility] % ALBUMIN 53.8(L) 55.8 - 66.7 % 03/06/2024 5:20 PM CDT [facility] ALBUMIN SERUM 4.0 2.5 - 5.4 g/dL 03/06/2024 5:20 PM CDT [facility] % ALPHA 1 GLOBULIN 4.1 2.9 - 4.9 % 03/06/2024 5:20 PM CDT [facility] ALPHA 1 0.3 0.2 - 0.4 g/dL 03/06/2024 5:20 PM CDT [facility] % ALPHA 2 GLOBULIN 11.3 7.1 - 11.8 % 03/06/2024 5:20 PM CDT [facility] ALPHA 2 0.8 0.5 - 1.0 g/dL 03/06/2024 5:20 PM CDT [facility] % BETA 14.9(H) 8.4 - 13.1 % 03/06/2024 5:20 PM CDT [facility] BETA-GLOBULIN 1.1 0.5 - 1.1 g/dL 03/06/2024 5:20 PM CDT [facility] % GAMMA GLOBULIN 15.9 11.1 - 18.8 % 03/06/2024 5:20 PM CDT [facility] GAMMA 1.2 0.7 - 1.5 g/dL 03/06/2024 5:20 PM CDT [facility] IMMUNOGLOBULIN G 1,086 552 - 1,631 mg/dL 03/06/2024 5:20 PM CDT [facility] IMMUNOGLOBULIN A 181 65 - 421 mg/dL 03/06/2024 5:20 PM CDT [facility] IMMUNOGLOBULIN M 203 33 - 293 mg/dL 03/06/2024 5:20 PM CDT [facility] INTERPRETATION SERUM No abnormal protein band is detected by serum protein electrophoresis. Serum immunofixation electrophoresis is negative for monoclonal immunoglobulins. Reviewed by Ivan Hoffman, Ph.D. 03/06/2024 5:20 PM CDT [facility] A/G RATIO, SERUM 1.2 03/06/20 5:20 PM CDT [facility] Blood Venipuncture / Unknown 03/05/2024 2:25 PM CDT 03/05/2024 2:26 PM CDT Narrative [facility] - 03/06/2024 5:20 PM CDT Reviewed By Jeremy Doyle M.D. Citlalli Talbert PAC CHEMISTRY ORDERABLES Hillary l Result [facility] [address] [place] [address], [place] * (ABNORMAL) FREE KAPPA & LAMBDA LIGHT CHAINS SERUM (03/05/2024 2:25 PM CDT) Pathologist [facility] Free Philmont Lt Chn 20.99(H) 3.30 - 19.40 mg/L 03/06/2024 11:16 AM CDT [facility] Free Lambda Lt Chn 19.75 5.71 - 26.30 mg/L 03/06/2024 11:16 AM CDT [facility] free eugenio abernathy ratio 1.06 0.26 - 1.65 03/06/2024 11:16 AM CDT [facility] Blood Venipuncture / Unknown 03/05/2024 2:25 PM CDT 03/05/2024 2:26 PM CDT [facility] PAC CHEMISTRY ORDERABLES Hillary l Result Performing Organization Address [facility]/ZIP Co de Phone Number [facility] [address] [place] [address], [place] * FERRITIN (03/05/2024 2:25 PM CDT) [facility] FERRITIN 199 5 - 204 ng/mL 03/05/2024 3:50 PM CDT [facility] Blood Venipuncture / Unknown 03/05/2024 2:25 PM CDT 03/05/2024 2:26 PM CDT [facility] PAC CHEMISTRY ORDERABLES Hillary l Result Performing Organization Address City/[facility]/ZIP Co de Phone Number [facility] [address] [place] [address] * FOLIC ACID (FOLATE) (03/05/2024 2:25 PM CDT) Pathologist [facility] FOLATE 7.3 7.0 - 31.4 ng/mL 03/05/2024 4:46 PM CDT [facility] IS THE PATIENT REQUIRED TO BE FASTING? No 03/05/2024 4:46 PM CDT [facility] Blood Venipuncture / Unknown 03/05/2024 2:25 PM CDT 03/05/2024 2:26 PM CDT Citlallizeus Talbert PAC CHEMISTRY ORDERABLES Hillary l Result [facility] [address] [place] [address] * (ABNORMAL) CMP (COMPREHENSIVE METABOLIC PANEL) (03/05/2024 2:25 PM CDT) SODIUM 142 136 - 145 mmol/L 03/05/2024 3:32 PM CDT [facility] POTASSIUM 3.3(L) 3.5 - 5.1 mmol/L 03/05/2024 3:32 PM CDT [facility] CHLORIDE 106 98 - 107 mmol/L 03/05/2024 3:32 PM CDT [facility] CO2, VENOUS 22 22 - 30 mmol/L 03/05/2024 3:32 PM CDT [facility] ANION GAP 17.3 <18.0 mmol/L 03/05/2024 3:32 PM CDT [facility] GLUCOSE 81 70 - 99 mg/dL 03/05/2024 3:32 PM CDT [facility] BUN 9 5 - 18 mg/dL 03/05/2024 3:32 PM CDT [facility] CREATININE, BLOOD 0.83 0.60 - 1.00 mg/dL 03/05/2024 3:32 PM CDT [facility] BUN/CREATININE RATIO 11(L) 12 - 20 ratio 03/05/2024 3:32 PM CDT [facility] TOTAL PROTEIN 8.2 6.3 - 8.2 g/dL 03/05/2024 3:32 PM CDT [facility] ALBUMIN 4.6 3.5 - 5.0 g/dL 03/05/2024 3:32 PM CDT [facility] A/G RATIO 1.3 1.0 - 2.2 03/05/2024 3:32 PM CDT [facility] CALCIUM 9.9 8.7 - 10.5 mg/dL 03/05/2024 3:32 PM CDT [facility] T BILI 0.3 0.2 - 1.2 mg/dL 03/05/2024 3:32 PM CDT [facility] SGOT (AST) 25 5 - 34 U/L 03/05/2024 3:32 PM CDT [facility] SGPT (ALT) 54 0 - 55 U/L 03/05/2024 3:32 PM CDT [facility] ALKALINE PHOSPHATASE 49 40 - 150 U/L 03/05/2024 3:32 PM CDT [facility] IS THE PATIENT REQUIRED TO BE FASTING? No 03/05/2024 3:32 PM CDT [facility] GFR, ESTIMATED >60 >=60 03/05/2024 3:32 PM CDT [facility] Comment: Creatinine Clearance is the preferred criteria for selecting drug dose adjustments in renally impaired patients. ??The GFR is provided as additional pertinent clinical information. GFR is reported in mL/min/1.73 sq m. Calculation based on the Chronic Kidney Disease Epidemiology Collaboration (CKD- EPI) equation refit without adjustment for race. GFR, EST. >60 >=60 024 3:32 PM CDT [facility] GFR, EST. NONAFRICAN >60 >=60 03/05/2024 3:32 PM CDT [facility] Blood Venipuncture / Unknown 03/05/2024 2:25 PM CDT 03/05/2024 2:26 PM CDT us Citlalli Talbert PAC CHEMISTRY ORDERABLES Hillary l Result [facility] [address] [facility] [place] [address] * JAK2 V617F MUTATION DETECTION, [place] JAK2B (03/05/2024 2:25 PM CDT) JAK2 RESULT see interpretation 4 4:11 PM CDT [facility] JAK2 V617F MUTATION DETECTION SEE NOTE 4 4:11 PM CDT [facility] Comment: Peripheral blood, JAK2 V617F mutation analysis: Negative for JAK2 V617F. A negative [id number] test result does not exclude the possibility [...] assay has been determined at 0.06% (see [facility] Interpretive Handbook for method details). This test was developed and its performance characteristics determined by [facility] in a manner consistent with CLIA requirements. This test has not been cleared or approved by the U.S. Food and Drug Administration. Test Performed by: [facility] [place] [address] Cement Finisher Apprentice: Mckenzie Mensah Ph.D.; CLIA# [id number] Blood Venipuncture / Unknown 03/05/2024 2:25 PM CDT 03/05/2024 2:26 PM CDT Citlalli Talbert [facility] SEND OUT GENETIC Hillary l Result Performing Organization Address City/[facility]/ZIP Co de Phone Number [facility] US * (ABNORMAL) FACTOR 5 LEIDEN GENE MUTATION (03/05/2024 2:25 PM CDT) FACTOR 5 LEIDEN MUT Heterozygous genotype(A) Normal (Homozygo us wild-type genotype) [facility] CEPHEID GENEXPERT 03/06/2024 6:45 AM CDT [facility] Comment: Sample carries both alleles, one wild-type and one mutant (Factor V Leiden) [id number] allele. ??The Factor V Leiden mutation in [...] 2:25 PM CDT 03/05/2024 2:26 PM CDT Citlalli Kristyn [facility] IMMUNOLOGY ORDERABLES Fin al Result Performing Organization Address City/[facility]/ZIP Co de Phone Number [facility] [address] [place] [address], [place] documented in this encounter Visit Diagnoses Diagnosis Family history of blood coagulation disorder Thrombocytosis Essential thrombocythemia documented in this encounter Care Teams Freight Separator Relationship Specialty Start Date End Date Radha Martins MD [address] [place] [address] PCP - General Family Medicine 01/02/24 documented as of this encounter
--- OUTSIDE RECORDS SUMMARY | 2024-08-31 21:55 | XMS_ITS | Encounter Summary ---
Author Organization [facility] Address [address] [place] [address] Phone Care Team Providers Care Adjunct Professor Name Role Phone Jabari Bynum MD Primary Care Provider Reason for Visit * Reason Onset Date Comments ED Follow-up 11/17/2021 Encounter Details Date Type Department Care Team (Late st Contact Info) Description 11/17/2021 Telephone [facility] Emergency [address] [place] [address] Kristie Yepez RN [place] ED Follow-up Social History Tobacco Use Types Packs/Day Years [...] Sex Assigned at Female 10/25/2023 8:55 PM COUNTY EXTENSION AGENT Legal Sex Female 8:58 PM CDT Gender Identity Female 10/25/2023 8:55 PM COUNTY EXTENSION AGENT Sexual Orientation Not on file COVID-19 Exposure Response Date Recorded In the last 10 days, have yo u been in contact with someone who was confirmed or suspected to have Coronavirus/COVID-19? No / Unsure 11/14/2021 10:13 AM CDT documented as of this encounter Miscellaneous Notes * Telephone Encounter - Kristie Yepez RN - 11/17/2021 1:15 PM CDT PT returned call. Made aware of need to pickling solution maker Marcobid. Sent to preferred pharmacy. documented in this encounter Plan of Treatment Upcoming Encounters Date Type Department Care Team (Late st Contact Info) Description 09/18/2024 1:00 PM COUNTY EXTENSION AGENT Lab [facility] [address] [place] [address] TalbertCitlalli regalado Kristyn, PAC [address] [place] [address] Discharge Disposition: Discharged to home or Selfcare 09/25/2024 2:15 PM COUNTY EXTENSION AGENT Office Visit [facility] Oncology Services [address] [place] [address] [place] Citlalli Kristyn, PAC [address] [place] [address] Discharge Disposition: Discharged to home or Selfcare documented as of this encounter Visit Diagnoses Not on filedocumented in this encounter Care Teams Adjunct Professor Relationship Specialty Start Date End Date Jabari Bynum MD [address] [place] [address] PCP - General Pediatrics 06/19/18 09/03/22 documented as of this encounter
--- OUTSIDE RECORDS SUMMARY | 2024-08-31 21:55 | XMS_ITS | Encounter Summary ---
Author Organization [facility] Address [address] [place] [address] Phone Care Team Providers Care Disaster Director Name Role Phone Jabari Bynum MD Primary Care Provider Provider, None Primary Care Provider Radha Muniz MD Primary Care Provider [phone] Encounter Details Date Type Department Care Team (Late st Contact Info) Description 06/30/2021 [facility] [address] [place] [address] Jabari Bynum MD [address] [place] [address] Acute pharyngitis, unspecified etiology (Primary Dx) Social History Tobacco Use Types [...] Sex Assigned at Female 10/25/2023 8:55 PM FISH HATCHERY MAN Legal Sex Female 8:58 PM CDT Gender Identity Female 10/25/2023 8:55 PM FISH HATCHERY MAN Sexual Orientation Not on file documented as of this encounter Plan of Treatment Upcoming Encounters Date Type Department Care Team (Late st Contact Info) Description 09/18/2024 1:00 PM FISH HATCHERY MAN [facility] [address] [place] [address] Citlalli Talbert, PAC [address] [place] [address] Discharge Disposition: Discharged to home or Selfcare 09/25/2024 2:15 PM FISH HATCHERY MAN [facility] [address] [place] [address] Citlalli Talbert, PAC [address] [place] [address] Discharge Disposition: Discharged to home or Selfcare Scheduled Orders Name Type Priority Associated Diagnoses Orde r Schedule SARS CORONOVIRUS-2 IGG Lab Routine Acute pharyngitis, unspecified etiology Expected: 06/30/2021, Expires: 06/30/2022 documented as of this encounter Visit Diagnoses Diagnosis Acute pharyngitis, unspecified etiology- Primary documented in this encounter Additional Health Concerns Infection Onset Date Last Indicated Resolved Time COVID - 19 09/04/2022 09/04/2022 09/14/2022 12:1 6 AM FISH HATCHERY MAN COVID - 19 02/27/2024 02/27/2024 02/27/2024 10:2 8 AM CDT documented as of this encounter Care Teams Disaster Director Relationship Specialty Start Date End Date Jabari Bynum MD [address] [place] [address] PCP - General Pediatrics 06/19/18 09/03/22 Provider, None [place] PCP - General 09/04/22 01/01/24 Radha Martins MD [address] [place] [address] PCP - General Family Medicine 01/02/24 documented as of this encounter
--- OUTSIDE RECORDS SUMMARY | 2024-08-31 21:55 | XMS_ITS | Encounter Summary ---
Author Organization [facility] Care Team Providers Care Cook Fish Eggs Name Role Phone Jabari Bynum MD Primary Care Provider Encounter Details Date Type Department Care Team (Latest Contact Info) Description 04/22/2021 Travel Social History Tobacco Use Types Packs/Day [...] Sex Assigned at Female 10/25/2023 8:55 PM PROCESS SAFETY MANAGER Legal Sex Female 8:58 PM CDT Gender Identity Female 10/25/2023 8:55 PM PROCESS SAFETY MANAGER Sexual Orientation Not on file COVID-19 Exposure Response Date Recorded In the last month, have you been in contact with someone who was confirmed or suspected to have Coronavirus / COVID-19? No / Unsure 04/22/2021 9:57 AM CDT documented as of this encounter Plan of Treatment Upcoming Encounters Date Type Department Care Team (Late st Contact Info) Description 09/18/2024 1:00 PM PROCESS SAFETY MANAGER Lab [facility] Oncology Services [address] [place] [phone] Citlalli Talbert Kristyn, PAC [address] [place] [address] Discharge Disposition: Discharged to home or Selfcare 09/25/2024 2:15 PM PROCESS SAFETY MANAGER Office Visit [facility] Oncology Services [address] [place] [phone] Citlalli Talbert Kristyn, PAC [address] [place] [address] Discharge Disposition: Discharged to home or Selfcare documented as of this encounter Visit Diagnoses Not on filedocumented in this encounter Care Teams Cook Fish Eggs Relationship Specialty Start Date End Date Jabari Bynum MD [address] [place] [address] PCP - General Pediatrics 06/19/18 09/03/22 documented as of this encounter
--- OUTSIDE RECORDS SUMMARY | 2024-08-31 21:55 | XMS_ITS | Encounter Summary ---
Author Organization [id number] Care Team Providers Care Neighborhood Aide Name Role Phone Jabari Bynum MD Primary Care Provider Encounter Details Date Type Department Care Team (Latest Contact Info) Description 05/19/2021 Travel Social History Tobacco Use Types Packs/Day [...] Sex Assigned at Female 10/25/2023 8:55 PM DENTAL TECHNICIAN APPRENTICE Legal Sex Female 8:58 PM CDT Gender Identity Female 10/25/2023 8:55 PM DENTAL TECHNICIAN APPRENTICE Sexual Orientation Not on file COVID-19 Exposure Response Date Recorded In the last month, have you been in contact with someone who was confirmed or suspected to have Coronavirus / COVID-19? No / Unsure 05/19/2021 3:36 PM CDT documented as of this encounter Plan of Treatment Upcoming Encounters Date Type Department Care Team (Late st Contact Info) Description 09/18/2024 1:00 PM DENTAL TECHNICIAN APPRENTICE Lab [facility] [address] [place] [id number] [address], [address] [place] [address] Discharge Disposition: Discharged to home or Selfcare 09/25/2024 2:15 PM DENTAL TECHNICIAN APPRENTICE Office Visit [facility] [address] [place] [phone] [address] Tal[address]yn, [address] [place] [address] Discharge Disposition: Discharged to home or Selfcare documented as of this encounter Visit Diagnoses Not on filedocumented in this encounter Care Teams Neighborhood Aide Relationship Specialty Start Date End Date Jabari Bynum MD [address] [place] [address] PCP - General Pediatrics 06/19/18 09/03/22 documented as of this encounter
--- OUTSIDE RECORDS SUMMARY | 2024-08-31 21:55 | XMS_ITS | Encounter Summary ---
Author Organization [facility] Address [address] 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 Name Role Phone Provider, None Primary Care Provider Unavailabl e Reason for Visit * Reason Comments Abdominal Pain Encounter Details Date Type Department Care Team (Late st Contact Info) Description 03/09/2023 3:31 PM CDT - 03/09/2023 7:10 PM CDT Emergency [facility] [address] [place] [address] Fariba Reddy, PAC [address] [place] [address] Menorrhagia Discharge Disposition: Discharged to home or Selfcare [...] Sex Assigned at Female 10/25/2023 8:55 PM CUTTER IN Legal Sex Female 8:58 PM CDT Gender Identity Female 10/25/2023 8:55 PM CUTTER IN Sexual Orientation Not on file COVID-19 Exposure Response Date Recorded In the last 10 days, have yo u been in contact with someone who was confirmed or suspected to have Coronavirus/COVID-19? No / Unsure 03/09/2023 3:19 PM CDT documented as of this encounter Last Filed Vital Signs Vital Sign Reading Time Taken Comments Blood Pressure 116/79 03/09/2023 6:57 PM CDT Pulse 81 03/09/2023 7:00 PM CDT Temperature 36.9 ??C (98.4 ??F) 03/09/2023 3:23 PM CD T Respiratory Rate 18 03/09/2023 7:00 PM CDT Oxygen Saturation 97% 03/09/2023 7:00 PM CDT Inhaled Oxygen Concentration - - Weight 61.2 kg (135 lb) 03/09/2023 3:23 PM CDT Height 154.9 cm (5' 1 ) 03/09/2023 3:23 PM CDT Body Mass Index 25.51 03/09/2023 3:23 PM CDT documented in this encounter Discharge Instructions * Discharge Instructions* Fariba Reddy PAC - 03/09/2023 6:51 PM CDT Please follow up with your obgyn. Seek medical attention if you have any worsening symptoms or if you are saturating a pad an hour for two consecutive hours. * Attachments The following attachments cannot be sent through Care Everywhere. * Menorrhagia (Bhutanese) documented in this encounter Medications at Time of Discharge Benzocaine-Menth ol (CEPACOL EXTRA STRENGTH) 15-2.6 MG Lozenge 1 Lozenge by Mouth/Throat route every 4 hours as needed for Other (sore throat). 18 Lozenge 12/06/2018 02/20/2024 hydrOXYzine (VISTARIL) 25 MG Capsule Take 1 Cap by mouth 2 times daily as needed for Itching or Anxiety. 10 Cap 05/29/2019 02/20/2024 ketorolac (TORADOL) 10 MG Tablet Take 1 Tablet by mouth every 6 hours as needed for Mild or more severe pain. 15 Tablet 03/09/2023 10/25/2023 ketorolac (TORADOL) 10 MG Tablet Take 1 Tablet by mouth every 6 hours as needed for Moderate or more severe pain. 20 Tablet 04/22/2021 10/25/2023 metoclopramide (REGLAN) 10 MG Tablet Take 1 Tablet by mouth 4 times daily as needed for Nausea - 1st line. 10 Tablet 04/22/2021 02/20/2024 ondansetron (ZOFRAN) 4 MG Tablet Take 1-2 Tablets by mouth every 8 hours as needed for Nausea - 1st line. 15 Tablet 09/04/2022 02/20/2024 SERTRALINE HCL PO Take 10 mg by mouth daily. 02/20/2024 topiramate (TOPAMAX) 25 MG Tablet Take 25 mg by mouth daily. 02/20/2024 documented as of this encounter ED Notes * Az Giang RN - 03/09/2023 7:08 PM CDT Patient discharged. Discharge instructions and patient educational material reviewed with patient; questions and concerns addressed; patient verbalizes understanding, using teach back. Patient was given 0 prescriptions. Patient was informed of the need to follow up with PCP for ongoing care or return for worsening symptoms. Patient ambulatory to ER Exit with family as responsible green party. SL D/C'edwith Ted cath intact. Pt alert and oriented x 4 with respirations that are even and unlabored attod. * Fariba Reddy PAC - 03/09/2023 6:51 PM CDT Chief Complaint Patient presents with ??? Abdominal Pain HPI Rosalba So is a 17 y.o. female who presents due to RLQ abdominal pain which started inthe past 2.5 days. Patient states that she has associated nausea without vomiting. She states that she was seen at [facility] and had a negative test and urine dip. Patient statesthat she started her menstrual cycle yesterday and reports that her bleeding today has been heavierthan normal. She denies any vaginal discharge other than bleeding. Denies any fever, dysuria, diarrhea, constipation. She has not taken anything for pain. Her obgyn is Dr. Jade. She is here today with her mother. No current facility-administered medications for this encounter. Current Outpatient Medications Medication Sig Dispense Refill ??? Benzocaine-Menthol (CEPACOL EXTRA STRENGTH) 15-2.6 MG Lozenge 1 Lozenge by Mouth/Throat route every 4 hours as needed for Other (sore throat). 18 Lozenge 0 ??? hydrOXYzine (VISTARIL) 25 MG Capsule Take 1 Cap by mouth 2 times daily as needed for Itching orAnxiety. 10 Cap 0 ??? ketorolac (TORADOL) 10 MG Tablet Take 1 Tablet by mouth every 6 hours as needed for Mild or more severe pain. 15 Tablet 0 ??? ketorolac (TORADOL) 10 MG Tablet Take 1 Tablet by mouth every 6 hours as needed for Moderate ormore severe pain. 20 Tablet 0 ??? metoclopramide (REGLAN) 10 MG Tablet Take 1 Tablet by mouth 4 times daily as needed for Nausea - 1st line. 10 Tablet 0 ??? ondansetron (ZOFRAN) 4 MG Tablet Take 1-2 Tablets by mouth every 8 hours as needed for Nausea -1st line. 15 Tablet 0 ??? SERTRALINE HCL PO Take 10 mg by mouth daily. ??? topiramate (TOPAMAX) 25 MG Tablet Take 25 mg by mouth daily. Allergies Allergen Reactions ??? Reglan [Metoclopramide] Anxiety Past Medical History Positives Diagnosis Date ??? Anxiety ??? Migraines Past Surgical History: Procedure Laterality Date ??? ADENOIDECTOMY ??? TONSILLECTOMY Social History Socioeconomic History ??? Marital status: Single Spouse name: Not on file ??? Number of children: Not on file ??? Years of education: Not on file ??? Highest education level: Not on file Occupational History ??? Not on file Tobacco Use ??? Smoking status: Never ??? Smokeless tobacco: Never Vaping Use ??? Vaping Use: Never used Substance and Sexual Activity ??? Alcohol use: Never ??? Drug use: Never ??? Sexual activity: Not on file Other Topics Concern ??? Not on file Social History Narrative ??? Not on file BP 124/67 Pulse 97 Temp 98.4 ??F (36.9 ??C) (Tympanic) Resp 18 Ht 5' 1 (1.549 m) Wt 135 lb (61.2 kg) LMP 03/08/2023 (Exact Date) SpO2 98% BMI 25.51 kg/m?? Review of Systems Constitutional: Negative for chills and fever. HENT: Negative for congestion, ear pain and sore throat. Eyes: Negative for pain and discharge. Respiratory: Negative for cough, chest tightness and shortness of breath. Cardiovascular: Negative for chest pain, palpitations and leg swelling. Gastrointestinal: Negative for abdominal distention, abdominal pain, blood in stool, constipation, diarrhea, nausea and vomiting. Genitourinary: Positive for menstrual problem and pelvic pain. Negative for dysuria, frequency and vaginal discharge. Musculoskeletal: Negative for arthralgias and back pain. Skin: Negative for color change and rash. Neurological: Negative for dizziness, weakness, light-headedness and headaches. Psychiatric/Behavioral: Negative for suicidal ideas. All other systems reviewed and are negative. [...] There is abdominal tenderness in the right lower quadrant. There is no guarding or rebound. Musculoskeletal: General: Normal range of motion. Cervical back: Normal range of motion. Skin: General: Skin is warm and dry. Neurological: Mental Status: She is alert and oriented to person, place, and time. Cranial Nerves: No cranial nerve deficit. Labs Reviewed CMP (COMPREHENSIVE METABOLIC PANEL) - Abnormal; Notable for the following components: Result Value POTASSIUM 3.4 (*) GLUCOSE 133 (*) All other components within normal limits URINALYSIS REFLEX IF INDICATED BY ABNORMAL RESULTS - Abnormal; Notable for the following components: PROTEIN, RANDOM URINE 15 mg/dL (*) URINE BLOOD 250 /uL (*) URINE RBC'S 11-20 (*) BACTERIA, URINE Few (*) All other components within normal limits CBC WITH AUTO DIFFERENTIAL - Abnormal; Notable for the following components: PLATELET COUNT 447 (*) All other components within normal limits COMPLETE BLOOD COUNT (CBC) WITH DIFF Narrative: The following orders were created for panel order CBC with Diff [id number]. Procedure Abnormality Status --------- ------ CBC with Auto Differential[[id number]] Abnormal Final result Please view results for these tests on the individual orders. POCT URINE HCG () CT ABDOMEN PELVIS W/ CONTRAST Final Result IMPRESSION: No acute finding. URINALYSIS REFLEX IF INDICATED BY ABNORMAL RESULTS Final Result US PELVIS LIMITED WITH TRANSVAG & COLOR DOPPLER LMT-NON OB Final Result IMPRESSION: 1. No gross acute finding is seen. Nonvisualized right ovary, likely obscured by overlying bowel gas. 2. Mild heterogeneity of the uterine cervix. Recommend correlation with physical examination. CBC with Diff [id number] Final Result Comprehensive Metabolic Panel (Cmp) [id number] Final Result Procedures Imaging Results CT ABDOMEN PELVIS W/ CONTRAST (Final result) Result time 03/09/23 18:38:12 Final result by Benton Bernardo MD (03/09/23 18:38:12) Impression: IMPRESSION: No acute finding. Narrative: EXAM DESCRIPTION: CT ABDOMEN PELVIS W/ CONTRAST REASON FOR STUDY: right lower abdominal pain and nausea onset a day and a half ago. Hx of ovarian cyst TECHNIQUE: CT scan of the abdomen and pelvis performed with intravenous and without oral contrast using helical scanning technique with dynamic intravenous contrast injection. Reconstructed coronal and sagittal MPR images reviewed. All images stored on PACS. Automated exposure control was used as a dose optimization technique for this examination. CONTRAST TYPE/DOSE: 68mL of IOPAMIDOL 76 % IV SOLN injected via Intravenous COMPARISON: 11/14/2021 REFERENCE: Per ACR white paper recommendations, unless otherwise specified no follow-up imaging is recommended for incidental renal and adrenal lesions per consensus recommendations based on imaging criteria. Further lab evaluation could be pursued based on clinical findings. FINDINGS: LOWER CHEST: No significant pulmonary abnormalities. No effusion. LIVER: Normal size. No identified cystic or solid masses. GALLBLADDER: No stones identified. No wall thickening or inflammatory changes. BILE DUCTS: No intrahepatic or extrahepatic ductal dilatation. SPLEEN: Normal size. No focal lesions. PANCREAS: No identified cystic or solid masses. No significant calcifications. No adjacent inflammation or peripancreatic fluid collections. Pancreatic duct not dilated. ADRENALS: Normal. KIDNEYS/URINARY TRACT: No identified significant cystic or solid masses. No visualized stones. No hydronephrosis or hydroureter. Symmetric enhancement. Urinary bladder is unremarkable. GI: No dilated bowel loops. No obvious wall thickening. Normal appendix. No significant diverticular disease. PERITONEUM: No ascites or free air. RETROPERITONEUM: No mass or adenopathy. REPRODUCTIVE: No significant abnormality. VASCULATURE: No abdominal aortic aneurysm. MUSCULOSKELETAL: No significant abnormality. OTHER: No other abnormality. THIS IS AN ELECTRONICALLY VERIFIED FINAL REPORT 03/09/2023 6:35 PM - Electronically signed by Benton Bernardo M.D. KT: MARIO Report ID: [id number] Reading Location: [place] [address] US PELVIS LIMITED WITH TRANSVAG & COLOR DOPPLER LMT-NON OB (Final result) Result time 03/09/23 17:09:45 Final result by Saul Bustillos MD (03/09/23 17:09:45) Impression: IMPRESSION: 1. No gross acute finding is seen. Nonvisualized right ovary, likely obscured by overlying bowel gas. 2. Mild heterogeneity of the uterine cervix. Recommend correlation with physical examination. Narrative: EXAM DESCRIPTION: US PELVIS LIMITED WITH TRANSVAG DOPPLER LMT-NON OB REASON FOR STUDY: vaginal bleeding, pelvic pain, r/o ruptured ovarian cyst TECHNIQUE: Grayscale ultrasound of the pelvic contents was performed with transabdominal and transvaginal transducer. COMPARISON: Correlation is made to CT dated 11/14/2021. FINDINGS: UTERUS: Uterus is retroverted the uterus is homogeneous in echotexture and measures 5.8 x 2.8 x 4.4 cm. Mild heterogeneity of the cervix. ENDOMETRIUM: The endometrium measures 5 mm in thickness. RIGHT OVARY: Not visualized. LEFT OVARY: The left ovary measures 3.0 x 1.8 x 2.8 cm. There is documentation of color Doppler flow in the left ovary. The left ovary appears unremarkable. PELVIC FLUID: There is no evidence of free fluid in the pelvis. OTHER: No other significant findings. THIS IS AN ELECTRONICALLY VERIFIED FINAL REPORT 03/09/2023 5:06 PM - Electronically signed by Saul Bustillos M.D. AG: IVONNE Report ID: [id number] Reading Location: [id number] Labs Reviewed CMP (COMPREHENSIVE METABOLIC PANEL) - Abnormal; Notable for the following components: Result Value POTASSIUM 3.4 (*) GLUCOSE 133 (*) All other components within normal limits URINALYSIS REFLEX IF INDICATED BY ABNORMAL RESULTS - Abnormal; Notable for the following components: PROTEIN, RANDOM URINE 15 mg/dL (*) URINE BLOOD 250 /uL (*) URINE RBC'S 11-20 (*) BACTERIA, URINE Few (*) All other components within normal limits CBC WITH AUTO DIFFERENTIAL - Abnormal; Notable for the following components: PLATELET COUNT 447 (*) All other components within normal limits COMPLETE BLOOD COUNT (CBC) WITH DIFF Narrative: The following orders were created for panel order CBC with Diff [id number]. Procedure Abnormality Status --------- ------ CBC with Auto Differential[[id number]] Abnormal Final result Please view results for these tests on the individual orders. POCT URINE HCG () MDM Clinical Impression 1. Menorrhagia 2. RLQ abdominal pain Disposition: Discharged Patient was informed of her test results. Advised that she contact her obgyn to arrange a follow upand to seek medial attention in the meantime if she has any worsening symptoms or worsening bleeding. Patient was prescribed toradol for pain. She expressed understanding and agreement to the tx plan. Cosigned by Kulwant Mares MD at 03/11/2023 5:11 PM CDT * Az Giang, RN - 03/09/2023 6:14 PM CDT Pt medicated per provider orders. Pt educated on intended effects and side effects of medication and verbalized understanding, able to provide teach back of education. * Az Giang RN - 03/09/2023 5:48 PM CDT Pt to ct * Az Giang RN - 03/09/2023 5:00 PM CDT Patient is resting in room with call light at bedside. Patient informed about wait time and verbalizes understanding. Patient denies needs at this time and verbalizes understanding that RN will complete hourly rounding. * Az Giang RN - 03/09/2023 4:11 PM CDT Pt to ultrasound * Joan Pelletier RN - 03/09/2023 3:23 PM CDT Patient presents ambulatory to triage with complaints of right lower abdominal pain and nausea without vomiting onset a day and a half ago. States that she was just seen at [facility] in which they tested urine for UTI which was negative. [facility] concerned for possible ruptured ovarian cyst aspatient has history of ovarian cyst. Denies any known fevers. Currently afebrile. States that she is currently on her period which has been abnormally heavy. documented in this encounter Plan of Treatment Upcoming Encounters Date Type Department Care Team (Late st Contact Info) Description 09/18/2024 1:00 PM CUTTER IN Lab [facility] [address] [place] [address] Citlalli Talbert January, PAC [address] [place] [address] Discharge Disposition: Discharged to home or Selfcare 09/25/2024 2:15 PM CUTTER IN Office Visit [facility] [address] [place] [id number] Citlalli Talbert, PAC [address] [place] [address] Discharge Disposition: Discharged to home or Selfcare documented as of this encounter Procedures Procedure Name Priority Date/Time Associated Diagnosis Comments CT ABDOMEN PELVIS W/ CONTRAST Stat with Interpretation 03/09/2023 6:06 PM CDT URINALYSIS REFLEX IF INDICATED BY ABNORMAL RESULTS STAT 03/09/2023 5:31 PM CDT US PELVIS LIMITED WITH TRANSVAG & COLOR DOPPLER LMT-NON OB Stat with Interpretation 03/09/2023 4:40 PM CDT POCT URINE HCG () STAT 03/09/2023 3:35 PM CDT CBC WITH AUTO DIFFERENTIAL STAT 03/09/2023 3:31 PM CDT CMP (COMPREHENSIVE METABOLIC PANEL) STAT 03/09/2023 3:31 PM CDT COMPLETE BLOOD COUNT (CBC) WITH DIFF STAT 03/09/2023 3:31 PM CDT documented in this encounter Results * CT ABDOMEN PELVIS W/ CONTRAST (03/09/2023 6:06 PM CDT) Anatomical Region Laterality Modality Abdomen N/A Computed Tomogra phy 03/09/2023 6:35 PM CDT Impressions 03/09/2023 6:38 PM CDT IMPRESSION: ?? No acute finding. Narrative 03/09/2023 6:38 PM CDT EXAM DESCRIPTION: ?? CT ABDOMEN PELVIS W/ CONTRAST REASON FOR STUDY: ?? right lower abdominal pain and nausea ??onset a day and a half ago. Hx of ovarian cyst ?? TECHNIQUE: CT scan of the abdomen and pelvis performed with intravenous and ??without ??oral contrast using helical scanning technique with dynamic intravenous contrast injection. Reconstructed coronal and sagittal MPR images reviewed. All images stored on PACS. Automated exposure control was used as a dose optimization technique for this examination. CONTRAST TYPE/DOSE: ?? 68mL of IOPAMIDOL 76 % IV SOLN ??injected via ?? Intravenous COMPARISON: ?? 11/14/2021 REFERENCE: Per ACR white paper recommendations, unless otherwise specified no follow-up imaging is recommended for incidental renal and adrenal lesions per consensus recommendations based on imaging criteria. Further lab evaluation could be pursued based on clinical findings. FINDINGS: LOWER CHEST: ?? No significant pulmonary abnormalities. No effusion. LIVER: ?? Normal size. ??No identified cystic or solid masses. GALLBLADDER: ?? No stones identified. No wall thickening or inflammatory changes. BILE DUCTS: ?? No intrahepatic or extrahepatic ductal dilatation. SPLEEN: ?? Normal size. ??No focal lesions. PANCREAS: ?? No identified cystic or solid masses. No significant calcifications. No adjacent inflammation or peripancreatic fluid collections. Pancreatic duct not dilated. ?? ADRENALS: ?? Normal. KIDNEYS/URINARY TRACT: ?? No identified significant cystic or solid masses. No visualized stones. No hydronephrosis or hydroureter. Symmetric enhancement. ?Urinary bladder is unremarkable. GI: ?? No dilated bowel loops. No obvious wall thickening. ??Normal appendix. ??No significant diverticular disease. PERITONEUM: ?? No ascites or free air. RETROPERITONEUM: ?? No mass or adenopathy. REPRODUCTIVE: ?? No significant abnormality. VASCULATURE: ?? No abdominal aortic aneurysm. MUSCULOSKELETAL: ?? No significant abnormality. OTHER: ?? No other abnormality. THIS IS AN ELECTRONICALLY VERIFIED FINAL REPORT 03/09/2023 6:35 PM - Electronically signed by ??Benton Bernardo M.D. KT: MARIO D: ??03/09/2023 6:35 PM T: ??03/09/2023 6:35 PM Report ID: [id number] Reading Location: ??[id number] Procedure Note Benton Bernardo MD - 03/09/2023 EXAM DESCRIPTION: CT ABDOMEN PELVIS W/ CONTRAST REASON FOR STUDY: right lower abdominal pain and nausea onset a day and a half ago. Hx of ovarian cyst TECHNIQUE: CT scan of the abdomen and pelvis performed with intravenous and without oral contrast using helical scanning technique with dynamic intravenous contrast injection. Reconstructed coronal and sagittal MPR images reviewed. All images stored on PACS. Automated exposure control was used as a dose optimization technique for this examination. CONTRAST TYPE/DOSE: 68mL of IOPAMIDOL 76 % IV SOLN injected via Intravenous COMPARISON: 11/14/2021 REFERENCE: Per ACR white paper recommendations, unless otherwise specified no follow-up imaging is recommended for incidental renal and adrenal lesions per consensus recommendations based on imaging criteria. Further lab evaluation could be pursued based on clinical findings. FINDINGS: LOWER CHEST: No significant pulmonary abnormalities. No effusion. LIVER: Normal size. No identified cystic or solid masses. GALLBLADDER: No stones identified. No wall thickening or inflammatory changes. BILE DUCTS: No intrahepatic or extrahepatic ductal dilatation. SPLEEN: Normal size. No focal lesions. PANCREAS: No identified cystic or solid masses. No significant calcifications. No adjacent inflammation or peripancreatic fluid collections. Pancreatic duct not dilated. ADRENALS: Normal. KIDNEYS/URINARY TRACT: No identified significant cystic or solid masses. No visualized stones. No hydronephrosis or hydroureter. Symmetric enhancement. Urinary bladder is unremarkable. GI: No dilated bowel loops. No obvious wall thickening. Normal appendix. No significant diverticular disease. PERITONEUM: No ascites or free air. RETROPERITONEUM: No mass or adenopathy. REPRODUCTIVE: No significant abnormality. VASCULATURE: No abdominal aortic aneurysm. MUSCULOSKELETAL: No significant abnormality. OTHER: No other abnormality. THIS IS AN ELECTRONICALLY VERIFIED FINAL REPORT 03/09/2023 6:35 PM - Electronically signed by Benton Bernardo M.D. KT: MARIO Report ID: [id number] Reading Location: [id number] IMPRESSION: No acute finding. Fariba Lima Page PAC IMG CT ORDERABLES Final Resu lt * (ABNORMAL) URINALYSIS REFLEX IF INDICATED BY ABNORMAL RESULTS (03/09/2023 5:31 PM CDT) SPECIFIC GRAVITY 1.005 1.003 - 1.030 03/09/2023 6:10 PM CDT [facility] URINE PH 7.0 5.0 - 9.0 03/09/2023 6:10 PM CDT [facility] WBC ESTERASE Negative Negative 03/09/2023 6:10 PM CDT [facility] NITRITE Negative Negative 03/09/2023 6:10 PM CDT [facility] PROTEIN, RANDOM URINE 15 mg/dL(A) Negative 03/09/2023 6:10 PM CDT [facility] URINE GLUCOSE, QUAL Negative Negative 03/09/2023 6:10 PM CDT [facility] URINE KETONES Negative Negative 03/09/2023 6:10 PM CDT [facility] UROBILINOGEN Normal Normal mg/dL 03/09/2023 6:10 PM CDT [facility] URINE BLOOD 250 /uL(A) Negative cinthia/ul 03/09/2023 6:10 PM CDT [facility] URINALYSIS COLOR Yellow 03/09/20 23 6:10 PM CDT [facility] URINALYSIS CLARITY Clear 03/09/2023 6:10 PM CDT [facility] WBC (Urine) Negative Negative, 0-5 /hpf 03/09/2023 6:10 PM CDT [facility] URINE RBC'S 11-20(A) Negative, 0-2 /hpf 03/09/2023 6:10 PM CDT [facility] EPITHELIAL CELLS Small amount /lpf 2022 6:10 PM CDT [facility] BACTERIA, URINE Few(A) Negative /hpf 03/09/2023 6:10 PM CDT [facility] Urine URINE SPECIMEN COLLECTION, CLEAN CATCH / Unknown Non-Phlebotomy Collection / Unknown 03/09/2023 5:31 PM CDT 03/09/2023 5:47 PM CDT us Fariba Lima Page PAC URINE ORDERABLES Final Resul t [facility] [address] [place] [address] * US PELVIS LIMITED WITH TRANSVAG & COLOR DOPPLER LMT-NON OB (03/09/2023 4:40 PM CDT) Anatomical Region Laterality Modality Abdomen N/A Ultrasound 03/09/2023 5:06 PM CDT Impressions 03/09/2023 5:09 PM CDT IMPRESSION: 1. ?? No gross acute finding is seen. ??Nonvisualized right ovary, likely obscured by overlying bowel gas. 2. ?? Mild heterogeneity of the uterine cervix. ??Recommend correlation with physical examination. Narrative 03/09/2023 5:09 PM CDT EXAM DESCRIPTION: ?? US PELVIS LIMITED WITH TRANSVAG DOPPLER LMT-NON OB REASON FOR STUDY: ?? vaginal bleeding, pelvic pain, r/o ruptured ovarian cyst ?? TECHNIQUE: Grayscale ultrasound of the pelvic contents was performed with ??transabdominal and transvaginal ??transducer. ?? COMPARISON: Correlation is made to CT dated 11/14/2021. FINDINGS: UTERUS: ?? Uterus is retroverted ??the uterus is ?? homogeneous ??in echotexture and measures ??5.8 x 2.8 x 4.4 ??cm. ??Mild heterogeneity of the cervix. ENDOMETRIUM: The endometrium measures ??5 mm ??in thickness. RIGHT OVARY: Not visualized. LEFT OVARY: The left ovary measures ??3.0 x 1.8 x 2.8 ??cm. ??There is documentation of color Doppler flow in the left ovary. ??The left ovary appears unremarkable. PELVIC FLUID: ?? There is no evidence of free fluid in the pelvis. OTHER: ?? No other significant findings. THIS IS AN ELECTRONICALLY VERIFIED FINAL REPORT 03/09/2023 5:06 PM - Electronically signed by ??Saul Bustillos M.D. AG: IVONNE D: ??03/09/2023 5:06 PM T: ??03/09/2023 5:06 PM Report ID: [id number] Reading Location: ??[id number] Procedure Note Saul Bustillos MD - 07/13/2023 EXAM DESCRIPTION: US PELVIS LIMITED WITH TRANSVAG DOPPLER LMT-NON OB REASON FOR STUDY: vaginal bleeding, pelvic pain, r/o ruptured ovarian cyst TECHNIQUE: Grayscale ultrasound of the pelvic contents was performed with transabdominal and transvaginal transducer. COMPARISON: Correlation is made to CT dated 11/14/2021. FINDINGS: UTERUS: Uterus is retroverted the uterus is homogeneous in echotexture and measures 5.8 x 2.8 x 4.4 cm. Mild heterogeneity of the cervix. ENDOMETRIUM: The endometrium measures 5 mm in thickness. RIGHT OVARY: Not visualized. LEFT OVARY: The left ovary measures 3.0 x 1.8 x 2.8 cm. There is documentation of color Doppler flow in the left ovary. The left ovary appears unremarkable. PELVIC FLUID: There is no evidence of free fluid in the pelvis. OTHER: No other significant findings. THIS IS AN ELECTRONICALLY VERIFIED FINAL REPORT 03/09/2023 5:06 PM - Electronically signed by Saul Bustillos M.D. AG: IVONNE Report ID: [id number] Reading Location: [id number] IMPRESSION: 1. No gross acute finding is seen. Nonvisualized right ovary, likely obscured by overlying bowel gas. 2. Mild heterogeneity of the uterine cervix. Recommend correlation with physical examination. Fariba Lima Page PAC IMG US ORDERABLES Final Resu lt * POCT Urine HCG () (03/09/2023 3:35 PM CDT) Pathologist [facility] [place] POC URINE Negative POC URINE CONTROL Supervisor [place] Urine 03/09/2023 3:35 PM CDT Kulwant Mares MD POINT OF CARE TESTING (MANUAL) Final Result * (ABNORMAL) CBC with Auto Differential (03/09/2023 3:31 PM CDT) Pathologist [facility] [place] WBC 9.37 4.00 - 12.00 10(3)/mcL 03/09/2023 3:49 PM CDT [facility] RBC 4.23 3.80 - 5.30 10(6)/mcL 03/09/2023 3:49 PM CDT [facility] HEMOGLOBIN (HGB) 12.7 12.0 - 15.8 g/dL 03/09/2023 3:49 PM CDT [facility] HEMATOCRIT (HCT) 38.7 36.0 - 47.0 % 03/09/2023 3:49 PM CDT [facility] MCV 91.5 82.0 - 96.0 fL 03/09/2023 3:49 PM CDT [facility] MCH 30.0 26.0 - 34.0 pg 03/09/2023 3:49 PM CDT [facility] MCHC 32.8 31.0 - 36.0 g/dL 03/09/2023 3:49 PM CDT [facility] PLATELET COUNT 447(H) 140 - 440 10(3)/mcL 03/09/2023 3:49 PM CDT [facility] RDW 13.2 11.8 - 15.5 % 03/09/2023 3:49 PM CDT [facility] MPV 9.7 9.7 - 12.4 fL 03/09/2023 3:49 PM CDT [facility] NEUTROPHILS 63.8 47.0 - 73.0 % 03/09/2023 3:49 PM CDT [facility] LYMPHOCYTES 29.1 18.0 - 42.0 % 03/09/2023 3:49 PM CDT [facility] MONOCYTES 5.5 4.0 - 12.0 % 03/09/2023 3:49 PM CDT [facility] EOSINOPHILS 1.0 0.0 - 5.0 % 03/09/2023 3:49 PM CDT [facility] BASOPHILS 0.6 0.0 - 1.0 % 03/09/2023 3:49 PM CDT [facility] ABSOLUTE NEUTROPHILS 5.97 1.60 - 7.70 10(3)/mcL 03/09/2023 3:49 PM CDT [facility] ABSOLUTE LYMPHOCYTES 2.73 1.30 - 3.20 10(3)/[facility] 03/09/2023 3:49 PM CDT [facility] ABSOLUTE MONOCYTES 0.52 0.20 - 1.00 10(3)/[facility] 03/09/2023 3:49 PM CDT [facility] ABSOLUTE EOSINOPHIL 0.09 0.00 - 0.40 10(3)/[facility] 03/09/2023 3:49 PM CDT [facility] ABSOLUTE BASOPHILS 0.06 0.00 - 0.10 10(3)/[facility] 03/09/2023 3:49 PM CDT [facility] NRBC PER 100 WBC 0 03/09/20 3:49 PM CDT [facility] Blood Venipuncture / Unknown 03/09/2023 3:31 PM CDT 03/09/2023 3:47 PM CDT Kulwant Mares MD HEMATOLOGY ORDERABLES Final Result [facility] [address] [place] [address] * (ABNORMAL) Comprehensive Metabolic Panel (Cmp) [id number] (03/09/2023 3:31 PM CDT) SODIUM 138 136 - 144 mmol/L 03/09/2023 4:11 PM CDT [facility] POTASSIUM 3.4(L) 3.5 - 5.1 mmol/L 03/09/2023 4:11 PM CDT [facility] CHLORIDE 102 100 - 110 mmol/L 03/09/2023 4:11 PM CDT [facility] CO2, VENOUS 23 22 - 32 mmol/L 03/09/2023 4:11 PM CDT [facility] ANION GAP 16.4 8.0 - 20.0 mmol/L 03/09/2023 4:11 PM CDT [facility] GLUCOSE 133(H) 70 - 99 mg/dL 03/09/2023 4:11 PM CDT [facility] BUN 10 6 - 20 mg/dL 03/09/2023 4:11 PM [facility] CREATININE, BLOOD 0.65 0.60 - 1.10 mg/dL 03/09/2023 4:11 PM T [facility] BUN/CREATININE RATIO 15 12 - 20 ratio 03/09/2023 4:11 PM CDT [facility] TOTAL PROTEIN 7.3 6.0 - 8.3 g/dL 03/09/2023 4:11 PM CDT [facility] ALBUMIN 4.6 3.5 - 5.0 g/dL 03/09/2023 4:11 PM [facility] A/G RATIO 1.7 1.0 - 2.0 03/09/2023 4:11 PM T [facility] CALCIUM 9.5 8.7 - 10.5 mg/dL 03/09/2023 4:11 PM T [facility] T BILI 0.4 0.2 - 1.2 mg/dL 03/09/2023 4:11 PM [facility] SGOT (AST) 17 <=32 U/L 03/09/2023 4:11 PM [facility] SGPT (ALT) 11 <=41 U/L 03/09/2023 4:11 PM [facility] ALKALINE PHOSPHATASE 50 35 - 105 U/L 03/09/2023 4:11 PM [facility] GFR, ESTIMATED >60 >=60 03/09/2023 4:11 PM [facility] Comment: Creatinine Clearance is the preferred criteria for selecting drug dose adjustments in renally impaired patients. ??The GFR is provided as additional pertinent clinical information. GFR is reported in mL/min/1.73 sq m. Calculation based on the Chronic Kidney Disease Epidemiology Collaboration (CKD- EPI) equation refit without adjustment for race. UNABLE TO CALCULATE GFR, EST. 023 4:[address] [facility] GFR, EST. NONAFRICAN 03/09/2023 4:11 PM CDT [facility] Blood Venipuncture / Unknown 03/09/2023 3:31 PM CDT 03/09/2023 3:47 PM CDT Kulwant Mares MD CHEMISTRY ORDERABLES F inal Result [facility] [address] [place] [address] documented in this encounter Visit Diagnoses Diagnosis Menorrhagia- Primary Excessive or frequent menstruation RLQ abdominal pain Abdominal pain, right lower quadrant documented in this encounter Administered Medications Inactive Administered Medications - up to 3 most recent administrations Medication Order MAR Action Action Date Dose Rate Site 0.9 % sodium chloride solution at 1,000 mL/hr, Intravenous, ONCE, 1 dose, On Marilu 03/09/23 at 1800 New Bag 03/09/2023 6:14 PM CDT 1000 mL/hr iopamidol (ISOVUE-370) 76 % injection 68 mL 68 mL, Intravenous, ONCE, 1 dose, On Marilu 03/09/23 at 1800 Given 03/09/2023 6:03 PM CDT 68 mL ketorolac (TORADOL) injection 30 mg 30 mg, Intravenous, ONCE, 1 dose, On Marilu 03/09/23 at 1800 Given 03/09/2023 6:14 PM CDT 30 mg documented in this encounter Active and Recently Administered Medications Times are shown in CDT. Scheduled Medication Order 03/07/2023 03/08/2023 03/09/2023 0.9 % sodium chloride solution (COMPLETED) at 1,000 mL/hr, Intravenous, ONCE, 1 dose, On Marilu 03/09/23 at 1800 1814 (New Bag - Prov ider: Az Giang RN) iopamidol (ISOVUE-370) 76 % injection 68 mL (COMPLETED) 68 mL, Intravenous, ONCE, 1 dose, On Marilu 03/09/23 at 1800 1803 (Given - Provid er: Jeanie Roblero, RT(R) ([place])) ketorolac (TORADOL) injection 30 mg (COMPLETED) 30 mg, Intravenous, ONCE, 1 dose, On Marilu 03/09/23 at 1800 1814 (Given - Provid er: Az Giang RN) documented in this encounter Care Teams Swiss Machinist Relationship Specialty Start Date End Date Provider, None [place] PCP - General 09/04/22 01/01/24 documented as of this encounter
--- OUTSIDE RECORDS SUMMARY | 2024-08-31 21:55 | XMS_ITS | Encounter Summary ---
Author Organization [facility] Care Team Providers Care Office Support Clerk Name Role Phone Jabari Bynum MD Primary Care Provider Encounter Details Date Type Department Care Team (Latest Contact Info) Description 11/14/2021 Travel Social History Tobacco Use Types Packs/Day [...] Sex Assigned at Female 10/25/2023 8:55 PM MAINTENANCE AND REPAIR WORKER Legal Sex Female 8:58 PM CDT Gender Identity Female 10/25/2023 8:55 PM MAINTENANCE AND REPAIR WORKER Sexual Orientation Not on file COVID-19 Exposure Response Date Recorded In the last 10 days, have yo u been in contact with someone who was confirmed or suspected to have Coronavirus/COVID-19? No / Unsure 11/14/2021 10:13 AM CDT documented as of this encounter Plan of Treatment Upcoming Encounters Date Type Department Care Team (Late st Contact Info) Description 09/18/2024 1:00 PM MAINTENANCE AND REPAIR WORKER Lab [facility] [address] [place] [phone] [address]yn, [address] [place] [address] Discharge Disposition: Discharged to home or Selfcare 09/25/2024 2:15 PM MAINTENANCE AND REPAIR WORKER Office Visit [facility] [address] [place] [phone] [address] Tal[address] Kristyn, [address] [place] [address] Discharge Disposition: Discharged to home or Selfcare documented as of this encounter Visit Diagnoses Not on filedocumented in this encounter Care Teams Office Support Clerk Relationship Specialty Start Date End Date Jabari Bynum MD [address] [place] [address] PCP - General Pediatrics 06/19/18 09/03/22 documented as of this encounter
--- OUTSIDE RECORDS SUMMARY | 2024-08-31 21:55 | XMS_ITS | Encounter Summary ---
Author Organization [facility] Care Team Providers Care Sales Promotion Coordinator Name Role Phone Provider, None Primary Care Provider Unavailabl e Encounter Details Date Type Department Care Team (Latest Contact Info) Description 09/04/2022 Travel Social History Tobacco Use Types Packs/Day [...] Sex Assigned at Female 10/25/2023 8:55 PM DUPLIGRAPH OPERATOR Legal Sex Female 8:58 PM CDT Gender Identity Female 10/25/2023 8:55 PM DUPLIGRAPH OPERATOR Sexual Orientation Not on file COVID-19 Exposure Response Date Recorded In the last 10 days, have yo u been in contact with someone who was confirmed or suspected to have Coronavirus/COVID-19? Yes 09/04/2022 11:10 AM DUPLIGRAPH OPERATOR documented as of this encounter Plan of Treatment Upcoming Encounters Date Type Department Care Team (Late st Contact Info) Description 09/18/2024 1:00 PM DUPLIGRAPH OPERATOR Lab [facility] [address] [place] [phone] [address] Talbert Kristyn, [address] [place] [address] Discharge Disposition: Discharged to home or Selfcare 09/25/2024 2:15 PM DUPLIGRAPH OPERATOR [facility] [address] [place] [phone] [address] Talbert Kristyn, [address] [place] [address] Discharge Disposition: Discharged to home or Selfcare documented as of this encounter Visit Diagnoses Not on filedocumented in this encounter Additional Health Concerns Infection Onset Date Last Indicated Resolved Time COVID - 19 09/04/2022 09/04/2022 09/14/2022 12:1 6 AM DUPLIGRAPH OPERATOR documented as of this encounter Care Teams Sales Promotion Coordinator Relationship Specialty Start Date End Date Provider, Tejinder COREY PCP - General 09/04/22 01/01/24 documented as of this encounter
--- OUTSIDE RECORDS SUMMARY | 2024-08-31 21:55 | XMS_ITS | Encounter Summary ---
Author Organization [facility] Address [address] [place] [address] Phone Care Team Providers Care Senior Analysis Specialist Name Role Phone Provider, None Primary Care Provider Unavailabl e Reason for Visit * Reason Comments Vomiting Encounter Details Date Type Department Care Team (Late st Contact Info) Description 09/04/2022 11:13 AM OVERLOCK SLEEVE SETTER - 09/04/2022 2:09 PM OVERLOCK SLEEVE SETTER Emergency [facility] Emergency [address] [place] [address] Fariba Reddy, PAC [address] [place] [address] Nausea and vomiting Discharge Disposition: Discharged to home or Selfcare [...] Sex Assigned at Female 10/25/2023 8:55 PM OVERLOCK SLEEVE SETTER Legal Sex Female 8:58 PM CDT Gender Identity Female 10/25/2023 8:55 PM OVERLOCK SLEEVE SETTER Sexual Orientation Not on file COVID-19 Exposure Response Date Recorded In the last 10 days, have yo u been in contact with someone who was confirmed or suspected to have Coronavirus/COVID-19? Yes 09/04/2022 11:10 AM OVERLOCK SLEEVE SETTER documented as of this encounter Last Filed Vital Signs Vital Sign Reading Time Taken Comments Blood Pressure 118/86 09/04/2022 11:11 AM OVERLOCK SLEEVE SETTER Pulse 92 09/04/2022 11:11 AM OVERLOCK SLEEVE SETTER Temperature 36.6 ??C (97.9 ??F) 09/04/2022 11:[address] Respiratory Rate 16 09/04/2022 11:11 AM OVERLOCK SLEEVE SETTER Oxygen Saturation 98% 09/04/2022 11:11 AM OVERLOCK SLEEVE SETTER Inhaled Oxygen Concentration - - Weight 61.2 kg (135 lb) 09/04/2022 11:11 AM OVERLOCK SLEEVE SETTER Height 154.9 cm (5' 1 ) 09/04/2022 11:11 AM OVERLOCK SLEEVE SETTER Body Mass Index 25.51 09/04/2022 11:11 AM OVERLOCK SLEEVE SETTER documented in this encounter Discharge Instructions * Discharge Instructions* Fariba Reddy PAC - 09/04/2022 1:42 PM OVERLOCK SLEEVE SETTER Please push clear fluid and advance to a bland diet as tolerated. Gatorade is recommended. Please return for reevaluation if your symptoms change or worsen. LOCK SLEEVE SETTER * Attachments The following attachments cannot be sent through Care Everywhere. * Abdominal Pain Adult (Latvian) * Nausea and Vomiting Adult (Latvian) documented in this encounter Medications at Time [...] as of this encounter ED Notes * Hira Toth RN - 09/04/2022 2:09 PM CST thankful for care. she denies pain or nausea at this time. explained purpose of prescribed med and that she may start med at any time after picking it up. she understands we expect her to be drowsy today after receiving benadryl in the er. she states she plans to go home and rest today. pt ambulatory out of er with steady gait, accompanied by female. LOCK SLEEVE SETTER * Karen Vieyra RN - 09/04/2022 1:30 PM CST Patient is resting in room with call light at bedside. Patient informed about wait time and verbalizes understanding. Patient denies needs at this time and verbalizes understanding that RN will complete hourly rounding. LOCK SLEEVE SETTER * Karen Vieyra RN - 09/04/2022 12:30 PM CST Patient is resting in room with call light at bedside. Patient informed about wait time and verbalizes understanding. Patient denies needs at this time and verbalizes understanding that RN will complete hourly rounding. LOCK SLEEVE SETTER * Hira Toth RN - 09/04/2022 12:12 PM CST pt calm and relaxed, laying on her left side with blanket to cover. lights turned down in room. resp unlabored. female at pt's side. LOCK SLEEVE SETTER * Hira Toth RN - 09/04/2022 12:05 PM CST pt became very anxious and crying out loud. she repeatedly stated she didn't feel well. benadryl ordered and given. madhu evangelista at pt's side comforting and reassuring her. LOCK SLEEVE SETTER * Fariba Reddy, PAC - 09/04/2022 11:34 AM CST Chief Complaint Patient presents with ??? Vomiting HPI Rosalba So is a 17 y.o. female who presents due to persistent vomiting which has been occurring for the past week. Patient states she has generalized abdominal discomfort. She states shestood up from the toilet a few days and had a syncopal episode. She states she is not able to keep anything down and feels dehydrated. She reports she has a history of abdominal related problems and has vomiting episodes every couple of weeks. She has had EGD and colonoscopies per patient that werenormal. She states she did run a 101 fever last night. She states her symptoms seem more severe than her normal. Her LMP was 2 weeks ago. Her physician is Dr. Bynum. PMH includes bipolar disorder, anx iety, and migraines. No current facility-administered medications for this encounter. [...] Smoking status: Never ??? Smokeless tobacco: Never Substance and Sexual Activity ??? Alcohol use: Never ??? Drug use: Never ??? Sexual activity: Not on file Other Topics Concern ??? Not on file Social History Narrative ??? Not on file BP 118/86 Pulse 92 Temp 97.9 ??F (36.6 ??C) (Temporal) Resp 16 Ht 5' 1 (1.549 m) Wt 135 lb (61.2 kg) LMP 08/22/2022 SpO2 98% BMI 25.51 kg/m?? Review of Systems Physical Exam Vitals and nursing note reviewed. [...] is soft. Tenderness: There is abdominal tenderness (epigastric ). There is no guarding or rebound. Musculoskeletal: General: Normal range of motion. Cervical back: Normal range of motion. Skin: General: Skin is warm and dry. Neurological: Mental Status: She is alert and oriented to person, place, and time. Cranial Nerves: No cranial nerve deficit. Labs Reviewed CMP (COMPREHENSIVE METABOLIC PANEL) - Abnormal; Notable for the following components: Result Value SODIUM 135 (*) CHLORIDE 98 (*) GLUCOSE 101 (*) BUN/CREATININE RATIO 10 (*) CALCIUM 10.6 (*) All other components within normal limits URINALYSIS REFLEX IF INDICATED BY ABNORMAL RESULTS - Abnormal; Notable for the following components: PROTEIN, RANDOM URINE 15 mg/dL (*) All other components within normal limits URINE DRUG SCREEN - Abnormal; Notable for the following components: UR CANNABINOID DETECTED (*) All other components within normal limits CBC WITH AUTO DIFFERENTIAL - Abnormal; Notable for the following components: PLATELET COUNT 479 (*) NEUTROPHILS 75.0 (*) LYMPHOCYTES 13.7 (*) ABSOLUTE MONOCYTES 1.02 (*) All other components within normal limits SARS-COV-2 BY MOLECULAR - Normal Narrative: This test has been authorized by the FDA under an Emergency Use Authorization (EUA) only. Negative results should be treated as presumptive and, if inconsistent with clinical signs and symptoms or necessary for patient management, the patient should be tested with an alternative molecularassay. Negative results do not preclude SARS-CoV-2 infection or any other respiratory pathogen. Additional information for Clinicians can be found at: https://www.fda.gov/media/829654/download Additional information for Patients can be found at: https://www.fda.gov/media/278495/download LIPASE - Normal COMPLETE BLOOD COUNT (CBC) WITH DIFF Narrative: The following orders were created for panel order CBC with Diff [id number]. Procedure Abnormality Status --------- ------ CBC with Auto Differential[[id number]] Abnormal Final result Please view results for these tests on the individual orders. POCT URINE HCG () POCT INFLUENZA A & B XR ABDOMINAL SERIES WITH CHEST VIEW Final Result IMPRESSION: 1. No definite evidence of acute cardiopulmonary process. 2. No definite evidence of bowel obstruction. Urine Drug Screen Final Result CMP (Comprehensive Metabolic Panel) Final Result CBC with Diff [id number] Final Result Lipase [id number] Final Result URINALYSIS REFLEX IF INDICATED BY ABNORMAL RESULTS Final Result Procedures Imaging Results XR ABDOMINAL SERIES WITH CHEST VIEW (Final result) Result time 09/04/22 13:25:47 Final result by Karon Sherman DO (09/04/22 13:25:47) Impression: IMPRESSION: 1. No definite evidence of acute cardiopulmonary process. 2. No definite evidence of bowel obstruction. Narrative: EXAM DESCRIPTION: XR ABDOMINAL SERIES WITH CHEST VIEW REASON FOR STUDY: Patient c/o lower abdominal pain, nausea, and vomiting for one week. H/o gerd TECHNIQUE: Frontal View of the chest and supine and upright views of the abdomen acquired. COMPARISON: 08/09/2019 FINDINGS: LUNGS/PLEURA: There is no definite evidence of a pneumothorax. There is no definite evidence of focal consolidation or pleural effusion. HEART/MEDIASTINUM: The heart, mediastinum, and pulmonary vasculature are grossly unremarkable. FREE-AIR: There is no definite evidence of free air under the diaphragm. BOWEL GAS PATTERN: There is no definite evidence of bowel obstruction. SOFT TISSUES: No significant abnormal calcifications. HARDWARE/LINES/TUBES: None. BONES: No significant abnormality. OTHER: No other significant finding. THIS IS AN ELECTRONICALLY VERIFIED FINAL REPORT 09/04/2022 1:23 PM - Electronically signed by Karon Sherman D.O. PS: PS Report ID: [id number] Reading Location: [place] [address] Labs Reviewed CMP (COMPREHENSIVE METABOLIC PANEL) - Abnormal; Notable for the following components: Result Value SODIUM 135 (*) CHLORIDE 98 (*) GLUCOSE 101 (*) BUN/CREATININE RATIO 10 (*) CALCIUM 10.6 (*) All other components within normal limits URINALYSIS REFLEX IF INDICATED BY ABNORMAL RESULTS - Abnormal; Notable for the following components: PROTEIN, RANDOM URINE 15 mg/dL (*) All other components within normal limits URINE DRUG SCREEN - Abnormal; Notable for the following components: UR CANNABINOID DETECTED (*) All other components within normal limits CBC WITH AUTO DIFFERENTIAL - Abnormal; Notable for the following components: PLATELET COUNT 479 (*) NEUTROPHILS 75.0 (*) LYMPHOCYTES 13.7 (*) ABSOLUTE MONOCYTES 1.02 (*) All other components within normal limits SARS-COV-2 BY MOLECULAR - Normal Narrative: This test has been authorized by the FDA under an Emergency Use Authorization (EUA) only. Negative results should be treated as presumptive and, if inconsistent with clinical signs and symptoms or necessary for patient management, the patient should be tested with an alternative molecularassay. Negative results do not preclude SARS-CoV-2 infection or any other respiratory pathogen. Additional information for Clinicians can be found at: https://www.fda.gov/media/378327/download Additional information for Patients can be found at: https://www.fda.gov/media/225767/download LIPASE - Normal COMPLETE BLOOD COUNT (CBC) WITH DIFF Narrative: The following orders were created for panel order CBC with Diff [id number]. Procedure Abnormality Status --------- ------ CBC with Auto Differential[[id number]] Abnormal Final result Please view results for these tests on the individual orders. POCT URINE HCG () POCT INFLUENZA A & B MDM Coding Clinical Impression 1. Nausea and vomiting 2. Generalized abdominal pain Patient had a reaction to reglan and was very tearful and agitated. He was given benadryl with improvement in symptoms. Her work up is unremarkable. She was advise to push clear fluids and advance toa bland diet as tolerated. She was discharged with zofran. Encouraged close f/u with her pmd or a [place] stroenterologist and to return for reevaluation if sx change or worsen. Cosigned by Lior Jose MD at 09/04/2022 5:26 PM OVERLOCK SLEEVE SETTER LOCK SLEEVE SETTER LOCK SLEEVE SETTER * Fariba Mulligan RN - 09/04/2022 11:12 AM CST Pt complains of lower abdominal pain, nausea, and vomiting for one week. Pt states she is unable tokeep down any food or liquids. Pt denies diarrhea or urinary symptoms. Pt states she did have a known covid exposure. She tested negative covid test when her symptoms started. LOCK SLEEVE SETTER documented in this encounter Plan of Treatment Upcoming Encounters Date Type Department Care Team (Late st Contact Info) Description 09/18/2024 1:00 PM OVERLOCK SLEEVE SETTER Lab [facility] [address] [place] [address] Citlalli Talbert, PAC [address] [place] [address] Discharge Disposition: Discharged to home or Selfcare 09/25/2024 2:15 PM OVERLOCK SLEEVE SETTER Office Visit [facility] [address] [place] [address] Citlalli Talbert Kristyn, PAC [address] [place] [address] Discharge Disposition: Discharged to home or Selfcare documented as of this encounter Procedures Procedure Name Priority Date/Time Associated Diagnosis Comments XR ABDOMINAL SERIES WITH CHEST VIEW STAT 09/04/2022 12:46 PM OVERLOCK SLEEVE SETTER POCT URINE HCG () STAT 09/04/2022 12:35 PM OVERLOCK SLEEVE SETTER POCT INFLUENZA A & B STAT 09/04/2022 12:34 PM OVERLOCK SLEEVE SETTER URINE DRUG SCREEN STAT 09/04/2022 12: 32 PM OVERLOCK SLEEVE SETTER CBC WITH AUTO DIFFERENTIAL STAT 09/04/2022 11:45 AM OVERLOCK SLEEVE SETTER LIPASE STAT 09/04/2022 11:45 AM OVERLOCK SLEEVE SETTER CMP (COMPREHENSIVE METABOLIC PANEL) STAT 09/04/2022 11:45 AM OVERLOCK SLEEVE SETTER COMPLETE BLOOD COUNT (CBC) WITH DIFF STAT 09/04/2022 11:45 AM OVERLOCK SLEEVE SETTER URINALYSIS REFLEX IF INDICATED BY ABNORMAL RESULTS STAT 09/04/2022 11:39 AM OVERLOCK SLEEVE SETTER SARS-COV-2 BY MOLECULAR STAT 09/04/2022 11:39 AM OVERLOCK SLEEVE SETTER documented in this encounter Results * XR ABDOMINAL SERIES WITH CHEST VIEW (09/04/2022 12:46 PM OVERLOCK SLEEVE SETTER) Anatomical Region Laterality Modality Abdomen N/A Digital Radiogra phy 09/04/2022 1:23 PM OVERLOCK SLEEVE SETTER Impressions 09/04/2022 1:25 PM OVERLOCK SLEEVE SETTER IMPRESSION: ?? 1. ?? No definite evidence of acute cardiopulmonary process. 2. ?? No definite evidence of bowel obstruction. Narrative 09/04/2022 1:25 PM OVERLOCK SLEEVE SETTER EXAM DESCRIPTION: ?? XR ABDOMINAL SERIES WITH CHEST VIEW REASON FOR STUDY: ?? Patient c/o lower abdominal pain, nausea, and vomiting for one week. H/o gerd TECHNIQUE: ?? Frontal ??View of the chest and ??supine and upright ?? views of the abdomen acquired. COMPARISON: ?? 08/09/2019 FINDINGS: LUNGS/PLEURA: ?? There is no definite evidence of a pneumothorax. ??There is no definite evidence of focal consolidation or pleural effusion. HEART/MEDIASTINUM: ?? The heart, mediastinum, and pulmonary vasculature are grossly unremarkable. FREE-AIR: ?? There is no definite evidence of free air under the diaphragm. ?? BOWEL GAS PATTERN: ?? There is no definite evidence of bowel obstruction. ?? SOFT TISSUES: ?? No significant abnormal calcifications. ?? HARDWARE/LINES/TUBES: ?? None. BONES: ?? No significant abnormality. OTHER: ?? No other significant finding. ?? THIS IS AN ELECTRONICALLY VERIFIED FINAL REPORT 09/04/2022 1:23 PM - Electronically signed by ??Karon Sherman D.O. PS: PS D: ??09/04/2022 1:23 PM T: ??09/04/2022 1:23 PM Report ID: [id number] Reading Location: ??[id number] Procedure Note Karon Sherman DO - 09/04/2022 EXAM DESCRIPTION: XR ABDOMINAL SERIES WITH CHEST VIEW REASON FOR STUDY: Patient c/o lower abdominal pain, nausea, and vomiting for one week. H/o gerd TECHNIQUE: Frontal View of the chest and supine and upright views of the abdomen acquired. COMPARISON: 08/09/2019 FINDINGS: LUNGS/PLEURA: There is no definite evidence of a pneumothorax. There is no definite evidence of focal consolidation or pleural effusion. HEART/MEDIASTINUM: The heart, mediastinum, and pulmonary vasculature are grossly unremarkable. FREE-AIR: There is no definite evidence of free air under the diaphragm. BOWEL GAS PATTERN: There is no definite evidence of bowel obstruction. SOFT TISSUES: No significant abnormal calcifications. HARDWARE/LINES/TUBES: None. BONES: No significant abnormality. OTHER: No other significant finding. THIS IS AN ELECTRONICALLY VERIFIED FINAL REPORT 09/04/2022 1:23 PM - Electronically signed by Karon Sherman D.O. PS: PS Report ID: [id number] Reading Location: [id number] IMPRESSION: 1. No definite evidence of acute cardiopulmonary process. 2. No definite evidence of bowel obstruction. Fariba Lima [facility] IMG DIAGNOSTIC ORDERABLES Fi nal Result * POCT Urine HCG () (09/04/2022 12:35 PM OVERLOCK SLEEVE SETTER) Pathologist [facility] POC URINE Negative POC URINE CONTROL Linen Worker Pass Urine 09/04/2022 12:3 5 PM OVERLOCK SLEEVE SETTER Fariba Reddy [facility] POINT OF CARE TESTING (MANUA L) Final Result * POCT Influenza A & B (09/04/2022 12:34 PM OVERLOCK SLEEVE SETTER) [facility] POC INFLU A Presumptive negative Group A Presumptive negative Group A, Invalid POC INFLU B Presumptive negative Group B Presumptive negative Group B, Invalid POC INFLUENZA CONTROL Linen Worker Pass 09/04/2022 12:3 4 PM OVERLOCK SLEEVE SETTER Fariba Lima [facility] POINT OF CARE TESTING (MANUA L) Final Result * (ABNORMAL) Urine Drug Screen (09/04/2022 12:32 PM OVERLOCK SLEEVE SETTER) Pathologist [facility] UR AMPHETAMINE NON DETECTED NON DETECTED 09/04/2022 1:02 PM OVERLOCK SLEEVE SETTER [facility] UR BENZODIAZEPINES NON DETECTED NON DETECTED 09/04/2022 1:02 PM OVERLOCK SLEEVE SETTER [facility] UR COCAINE METABOLITE NON DETECTED NON DETECTED 09/04/2022 1:02 PM OVERLOCK SLEEVE SETTER [facility] UR OPIATES NON DETECTED NON DETECTED 09/04/2022 1:02 PM OVERLOCK SLEEVE SETTER [facility] UR PHENCYCLIDINE NON DETECTED NON DETECTED 09/04/2022 1:02 PM OVERLOCK SLEEVE SETTER [facility] UR CANNABINOID DETECTED(A) NON DETECTED 09/04/2022 1:02 PM OVERLOCK SLEEVE SETTER [facility] UR TRICYCLIC ANTIDEPRESS SCREEN NON DETECTED NON DETECTED 09/04/2022 1:02 PM OVERLOCK SLEEVE SETTER [facility] Comment: FOR MEDICAL USE ONLY. CUTOFF CONCENTRATION FOR DETECTED RESULT: TCA: ??300 NG/ML UR BARBITURATE NON DETECTED NON DETECTED 09/04/2022 1:02 PM OVERLOCK SLEEVE SETTER [facility] Urine Non-Phlebotomy Collection / Unknown 09/04/2022 12:32 PM OVERLOCK SLEEVE SETTER 09/04/2022 12:36 PM 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 Lior Jose MD URINE ORDERABLES Final Result [facility] [address] [place] [address] * (ABNORMAL) CBC with Auto Differential (09/04/2022 11:45 AM OVERLOCK SLEEVE SETTER) WBC 9.56 4.00 - 12.00 10(3)/mcL 09/04/2022 11:54 AM OVERLOCK SLEEVE SETTER [facility] RBC 4.83 3.80 - 5.30 10(6)/[facility] 09/04/2022 11:54 AM OVERLOCK SLEEVE SETTER [facility] HEMOGLOBIN (HGB) 14.6 12.0 - 15.8 g/dL 09/04/2022 11:54 AM OVERLOCK SLEEVE SETTER [facility] HEMATOCRIT (HCT) 44.0 36.0 - 47.0 % 09/04/2022 11:54 AM OVERLOCK SLEEVE SETTER [facility] MCV 91.1 82.0 - 96.0 fL 09/04/2022 11:54 AM [facility] MCH 30.2 26.0 - 34.0 pg 09/04/2022 11:54 AM [facility] MCHC 33.2 31.0 - 36.0 g/dL 09/04/2022 11:54 AM [facility] PLATELET COUNT 479(H) 140 - 440 10(3)/[facility] 09/04/2022 11:54 AM [facility] RDW 12.3 11.8 - 15.5 % 09/04/2022 11:54 AM [facility] MPV 9.9 9.7 - 12.4 fL 09/04/2022 11:54 AM [facility] NEUTROPHILS 75.0(H) 47.0 - 73.0 % 09/04/2022 11:54 AM [facility] LYMPHOCYTES 13.7(L) 18.0 - 42.0 % 09/04/2022 11:54 AM [facility] MONOCYTES 10.7 4.0 - 12.0 % 09/04/2022 11:54 AM [facility] EOSINOPHILS 0.4 0.0 - 5.0 % 09/04/2022 11:54 AM [facility] BASOPHILS 0.2 0.0 - 1.0 % 09/04/2022 11:54 AM [facility] ABSOLUTE NEUTROPHILS 7.17 1.60 - 7.70 10(3)/mcL 09/04/2022 11:54 AM [facility] ABSOLUTE LYMPHOCYTES 1.31 1.30 - 3.20 10(3)/mcL 09/04/2022 11:54 AM [facility] ABSOLUTE MONOCYTES 1.02(H) 0.20 - 1.00 10(3)/mcL 09/04/2022 11:54 AM [facility] ABSOLUTE EOSINOPHIL 0.04 0.00 - 0.40 10(3)/mcL 09/04/2022 11:54 AM OVERLOCK SLEEVE SETTER [facility] ABSOLUTE BASOPHILS 0.02 0.00 - 0.10 10(3)/mcL 09/04/2022 11:54 AM OVERLOCK SLEEVE SETTER [facility] NRBC PER 100 WBC 0 09/04/19 11:54 AM OVERLOCK SLEEVE SETTER [facility] Blood Venipuncture / Unknown 09/04/2022 11:45 AM OVERLOCK SLEEVE SETTER 09/04/2022 11:49 AM OVERLOCK SLEEVE SETTER Fariba Lima Page PAC HEMATOLOGY ORDERABLES Final Result Performing Organization Address City/[facility]/ZIP Co de Phone Number [facility] [address] [place] [address] * Lipase [id number] (09/04/2022 11:45 AM OVERLOCK SLEEVE SETTER) LIPASE 23.1 13 - 60 U/L 09/04/2022 12:10 PM OVERLOCK SLEEVE SETTER [facility] Blood Venipuncture / Unknown 09/04/2022 11:45 AM OVERLOCK SLEEVE SETTER 09/04/2022 11:49 AM OVERLOCK SLEEVE SETTER Fariba Reddy PAC CHEMISTRY ORDERABLES Final R esult Performing Organization Address City/[facility]/ZIP Co de Phone Number [facility] [address] [place] [address] * (ABNORMAL) CMP (Comprehensive Metabolic Panel) (09/04/2022 11:45 AM OVERLOCK SLEEVE SETTER) SODIUM 135(L) 136 - 144 mmol/L 09/04/2022 12:10 PM OVERLOCK SLEEVE SETTER [facility] POTASSIUM 3.8 3.5 - 5.1 mmol/L 09/04/2022 12:10 PM OVERLOCK SLEEVE SETTER [facility] CHLORIDE 98(L) 100 - 110 mmol/L 09/04/2022 12:10 PM OVERLOCK SLEEVE SETTER [facility] CO2, VENOUS 25 22 - 32 mmol/L 09/04/2022 12:10 PM OVERLOCK SLEEVE SETTER [facility] ANION GAP 15.8 8.0 - 20.0 mmol/L 09/04/2022 12:10 PM [facility] GLUCOSE 101(H) 70 - 99 mg/dL 09/04/2022 12:10 PM [facility] BUN 6 6 - 20 mg/dL 09/04/2022 12:10 PM [facility] CREATININE, BLOOD 0.63 0.60 - 1.10 mg/dL 09/04/2022 12:10 PM [facility] BUN/CREATININE RATIO 10(L) 12 - 20 ratio 09/04/2022 12:10 PM [facility] TOTAL PROTEIN 8.0 6.0 - 8.3 g/dL 09/04/2022 12:10 PM [facility] ALBUMIN 5.2 3.5 - 5.2 g/dL 09/04/2022 12:10 PM [facility] A/G RATIO 1.9 1.0 - 2.0 09/04/2022 12:10 PM [facility] CALCIUM 10.6(H) 8.9 - 10.3 mg/dL 09/04/2022 12:10 PM [facility] T BILI 1.0 <=1.2 mg/dL 09/04/2022 12:10 PM [facility] SGOT (AST) 17 <=32 U/L 09/04/2022 12:10 PM [facility] SGPT (ALT) 13 <=41 U/L 09/04/2022 12:10 PM [facility] ALKALINE PHOSPHATASE 79 35 - 105 U/L 09/04/2022 12:10 PM [facility] GFR, ESTIMATED >60 >=60 09/04/2022 12:10 PM [facility] Comment: Creatinine Clearance is the preferred criteria for selecting drug dose adjustments in renally impaired patients. ??The GFR is provided as additional pertinent clinical information. GFR is reported in mL/min/1.73 sq m. Calculation based on the Chronic Kidney Disease Epidemiology Collaboration (CKD- EPI) equation refit without adjustment for race. UNABLE TO CALCULATE GFR, EST. 023 12:10 PM OVERLOCK SLEEVE SETTER [facility] GFR, EST. NONAFRICAN 09/04/2022 12:10 PM OVERLOCK SLEEVE SETTER [facility] Blood Venipuncture / Unknown 09/04/2022 11:45 AM OVERLOCK SLEEVE SETTER 09/04/2022 11:49 AM OVERLOCK SLEEVE SETTER Fariba Lima Page PAC CHEMISTRY ORDERABLES Final R esult Performing Organization Address [facility]/ZIP Co de Phone Number [facility] [address] [place] [address] * SARS-COV-2 BY MOLECULAR (09/04/2022 11:39 AM OVERLOCK SLEEVE SETTER) SARSCOV2 NOT DETECTED (Referenc e Range for this test is Not Detected) [facility] ID NOW B 09/04/2022 12:05 PM OVERLOCK SLEEVE SETTER [facility] Comment:This test was perfor med by a MOLECULAR, NON-PCR method Other NASAL STRUCTURE / Unknown Non-Phlebotomy Collection / Unknown 09/04/2022 11:39 AM OVERLOCK SLEEVE SETTER 09/04/2022 11:50 AM OVERLOCK SLEEVE SETTER Narrative [facility] - 09/04/2022 12:05 PM OVERLOCK SLEEVE SETTER This test has been authorized by the FDA under an Emergency Use Authorization (EUA) only. Negative results should be treated as presumptive and, if inconsistent with clinical signs and symptoms or necessary for patient management, the patient should be tested with an alternative molecular assay. Negative results do not preclude SARS-CoV-2 infection or any other respiratory pathogen. Additional information for Clinicians can be found at: https://www.fda.gov/media/348871/download Additional information for Patients can be found at: https://www.fda.gov/media/748156/download Fariba Lima Page PAC MICROBIOLOGY - GENERAL ORDER COLT Final Result Performing Organization Address City/[facility]/ZIP Co de Phone Number [facility] [place] [address] * (ABNORMAL) URINALYSIS REFLEX IF INDICATED BY ABNORMAL RESULTS (09/04/2022 11:39 AM OVERLOCK SLEEVE SETTER) SPECIFIC GRAVITY 1.005 1.003 - 1.030 09/04/2022 11:56 AM OVERLOCK SLEEVE SETTER [facility] URINE PH 7.0 5.0 - 9.0 09/04/2022 11:56 AM [employer] SLEEV[employer]TER [facility] WBC ESTERASE Negative Negative 09/04/2022 11:56 AM [employer]LOCK SLEEVE [employer]TER [facility] NITRITE Negative Negative 09/04/2022 11:56 AM [facility] PROTEIN, RANDOM URINE 15 mg/dL(A) Negative 09/04/2022 11:56 AM [employer]LOCK SLEEVE [employer]TER [facility] URINE GLUCOSE, QUAL Negative Negative 09/04/2022 11:56 AM [employer]LOCK SLEEVE SETTER [facility] URINE KETONES Negative Negative 09/04/2022 11:56 AM [employer] SLEEVE SETTER [facility] UROBILINOGEN Normal Normal mg/dL 09/04/2022 11:56 AM [employer] SLEEV[employer]TER [facility] URINE BLOOD Negative Negative cinthia/ul 09/04/2022 11:56 AM [facility] URINALYSIS COLOR Yellow 09/04/19 11:56 AM [facility] URINALYSIS CLARITY Clear 09/04/2022 11:56 AM [facility] Urine URINE SPECIMEN COLLECTION, CLEAN CATCH / Unknown Non-Phlebotomy Collection / Unknown 09/04/2022 11:39 AM [employer] SLE[employer]TER 09/04/2022 11:49 AM 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 Fariba Lima Page PAC URINE ORDERABLES Final Resul t [facility] [place] [address] documented in this encounter Visit Diagnoses Diagnosis Nausea and vomiting- Primary Nausea with vomiting Generalized abdominal pain Abdominal pain, generalized documented in this encounter Administered Medications Inactive Administered Medications - up to 3 most recent administrations Medication Order MAR Action Action Date Dose Rate Site 0.9 % sodium chloride solution at 1,000 mL/hr, Intravenous, ONCE, 1 dose, On 09/04/22 at 1200 New Bag 09/04/2022 11:53 AM [employer]TER 1000 mL/hr diphenhydrAMINE (BENADRYL) injection 50 mg 50 mg, Intravenous, ONCE, 1 dose, On 09/04/22 at 1230 Given 09/04/2022 12:06 PM [employer]TER 50 mg DIPHENHYDRAMINE HCL 50 MG/ML IJ SOLN 1 dose, Starting on 09/04/22 at 1202, Until 09/04/22 at 1206, Created by dominick balderrama metoclopramide (REGLAN) injection 10 mg 10 mg, Intravenous, ONCE, 1 dose, On 09/04/22 at 1200 Given 09/04/2022 11:53 AM [employer]TER 10 mg documented in this encounter Active and Recently Administered Medications Times are shown in [employer] SLE[employer]TER. Scheduled Medication Order 09/02/2022 09/03/2022 09/04/2022 0.9 % sodium chloride solution (COMPLETED) at 1,000 mL/hr, Intravenous, ONCE, 1 dose, On 09/04/22 at 1200 1153 (New Bag - Prov ider: Hira Toth RN)1300 (Stopped - Provider: Hira Toth RN) diphenhydrAMINE (BENADRYL) injection 50 mg (COMPLETED) 50 mg, Intravenous, ONCE, 1 dose, On 09/04/22 at 1230 1206 (Given - Provid er: Hira Toth RN) metoclopramide (REGLAN) injection 10 mg (COMPLETED) 10 mg, Intravenous, ONCE, 1 dose, On 09/04/22 at 1200 1153 (Given - Provid er: iHra Toth RN) documented in this encounter Additional Health Concerns Infection Onset Date Last Indicated Resolved Time COVID - 19 09/04/2022 09/04/2022 09/14/2022 12:1 6 AM [employer]TER documented as of this encounter Care Teams Senior Analysis Specialist Relationship Specialty Start Date End Date Provider, None [place] PCP - General 09/04/22 01/01/24 documented as of this encounter
--- OUTSIDE RECORDS SUMMARY | 2024-08-31 21:55 | XMS_ITS | Encounter Summary ---
Author Organization [facility] Address [address] 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 Name Role Phone Jabari Bynum MD Primary Care Provider Reason for Visit * Reason Comments Abdominal Pain Encounter Details Date Type Department Care Team (Late st Contact Info) Description 05/19/2021 3:38 PM CDT - 05/19/2021 6:02 PM CDT Emergency [facility] Emergency [address] [place] [address] Jamaal Salas MD Acute pyelonephritis Discharge Disposition: Discharged to home or Selfcare [...] Sex Assigned at Female 10/25/2023 8:55 PM PATROL AGENT Legal Sex Female 8:58 PM CDT Gender Identity Female 10/25/2023 8:55 PM PATROL AGENT Sexual Orientation Not on file COVID-19 Exposure Response Date Recorded In the last month, have you been in contact with someone who was confirmed or suspected to have Coronavirus / COVID-19? No / Unsure 05/19/2021 3:36 PM CDT documented as of this encounter Last Filed Vital Signs Vital Sign Reading Time Taken Comments Blood Pressure 140/81 05/19/2021 3:35 PM CDT Pulse 90 05/19/2021 6:00 PM CDT Temperature 36.9 ??C (98.4 ??F) 05/19/2021 3:35 PM CD T Respiratory Rate 18 05/19/2021 6:00 PM CDT Oxygen Saturation 99% 05/19/2021 6:00 PM CDT Inhaled Oxygen Concentration - - Weight 84 kg (185 lb 3 oz) 05/19/2021 3:35 PM CD T Height 156.2 cm (5' 1.5 ) 05/19/2021 3:35 PM CDT Body Mass Index 34.42 05/19/2021 3:35 PM CDT Body Mass Index Percentile 97.24% 05/19/2021 3:3 5 PM CDT Growth Chart: [facility] (Girls, 2- 20 Years) documented in this encounter Discharge Instructions * Attachments The following attachments cannot be sent through Care Everywhere. * Urinary Tract Infections (UTIs), Understanding ([place]) documented in this encounter Medications at Time [...] - 1st line. 10 Tablet 04/22/2021 02/20/2024 SERTRALINE HCL PO Take 10 mg by mouth daily. 02/20/2024 sulfamethoxazole -trimethoprim DS (Bactrim DS) 800-160 MG Tablet Take 1 Tablet by mouth 2 times daily for 7 days. 14 Tablet 05/20/2021 05/27/2021 topiramate (TOPAMAX) 25 MG Tablet Take 25 mg by mouth daily. 02/20/2024 documented as of this encounter ED Notes * Stephanie Hodgson RN - 05/19/2021 6:01 PM CDT Patient discharged. Discharge instructions and patient educational material reviewed with patient; questions and concerns addressed; patient verbalizes understanding, using teach back. Patient was given 1 prescription. SL D/C'ed with Ted cath intact. Ambulatory out with mother. * Stephanie Hodgson RN - 05/19/2021 5:30 PM CDT Patient is resting in room with call light at bedside. Patient informed about wait time and verbalizes understanding. Patient denies needs at this time and verbalizes understanding that RN will complete hourly rounding. Mother at bedside * Stephanie Hodgson RN - 05/19/2021 5:09 PM CDT Pt to CT. * Jamaal Salas MD - 05/19/2021 4:38 PM CDT Chief Complaint Patient presents with ??? Abdominal Pain The patient is a 15-year-old female who presents to the emergency department accompanied by her mother with 5 day complaints of gradually worsening lower abdominal pain. She was seen at [facility] yesterday and urinalysis was checked which was normal. She reports the pain 5/10 in severity at the current time. It is worse in the suprapubic area. There is some pain in the low back. She denies vaginal discharge or bleeding and states that she had a negative test performed yesterday. There has been no dysuria but she has had some increased frequency. She has had nausea and vomiting associated with this with last episode of vomiting 2 days ago. There has been no constipation or diarrhea. Current Facility-Administered Medications Medication Dose Route Frequency Provider Last Rate Last Admin ??? cefTRIAXone (ROCEPHIN) injection 1 g 1 g Intravenous Once Jamaal Salas MD Current Outpatient Medications Medication Sig Dispense Refill [...] - 1st line. 10 Tablet 0 ??? SERTRALINE HCL PO Take 10 mg by mouth daily. ??? [START ON 05/20/2021] sulfamethoxazole-trimethoprim DS (Bactrim DS) 800-160 MG Tablet Take 1 Tablet by mouth 2 times daily for 7 days. 14 Tablet 0 ??? topiramate (TOPAMAX) 25 MG Tablet Take 25 mg by mouth daily. No Known Allergies Past Medical History Positives Diagnosis Date ??? [...] file Tobacco Use ??? Smoking status: Never Smoker ??? Smokeless tobacco: Never Used Substance and Sexual Activity ??? Alcohol use: Never ??? Drug use: Never ??? Sexual activity: Not on file Other Topics Concern ??? Not on file Social History Narrative ??? Not on file Social Determinants of Health Social determinant risk not applicable to this patient. BP (!) 140/81 Pulse 93 Temp 98.4 ??F (36.9 ??C) (Tympanic) Resp 18 Ht 5' 1.5 (1.562 m) Wt 84 kg (185 lb 3 oz) LMP 02/25/2021 SpO2 97% BMI 34.42 kg/m?? Review of Systems Constitutional: Negative. Respiratory: Negative. Cardiovascular: Negative. Gastrointestinal: Positive for abdominal pain, nausea and vomiting. Genitourinary: Positive for frequency. Negative for dysuria and urgency. All other systems reviewed and are negative. Physical Exam Vitals and nursing note reviewed. Constitutional: General: She is not in acute distress. Appearance: She is well-developed. HENT: Head: Normocephalic and atraumatic. Eyes: Extraocular Movements: Extraocular movements intact. Pupils: Pupils are equal, round, and reactive to light. Cardiovascular: Rate and Rhythm: Normal rate and regular rhythm. Heart sounds: Normal heart sounds. No murmur heard. Pulmonary: Effort: Pulmonary effort is normal. Breath sounds: Normal breath sounds. Abdominal: General: Abdomen is flat. Bowel sounds are normal. There is no distension. Palpations: Abdomen is soft. Tenderness: There is abdominal tenderness in the right lower quadrant, suprapubic area and left lower quadrant. There is right CVA tenderness. Hernia: No hernia is present. Skin: General: Skin is warm and dry. Neurological: General: No focal deficit present. Mental Status: She is alert and oriented to person, place, and time. Psychiatric: Mood and Affect: Mood normal. Behavior: Behavior normal. Labs Reviewed CMP (COMPREHENSIVE METABOLIC PANEL) - Abnormal; Notable for the following components: Result Value GLUCOSE 132 (*) BUN/CREATININE RATIO 10 (*) ALBUMIN 4.6 (*) SGOT (AST) 76 (*) SGPT (ALT) 125 (*) ALKALINE PHOSPHATASE 89 (*) All other components within normal limits URINALYSIS REFLEX IF INDICATED BY ABNORMAL RESULTS - Abnormal; Notable for the following components: WBC ESTERASE 100 /uL (*) URINE KETONES 15 mg/dL (*) URINE BLOOD 10 /uL (*) WBC (Urine) 21-50 (*) URINE RBC'S 3-5 (*) BACTERIA, URINE Moderate (*) All other components within normal limits CBC WITH AUTO DIFFERENTIAL - Abnormal; Notable for the following components: HEMOGLOBIN (HGB) 13.7 (*) HEMATOCRIT (HCT) 41.6 (*) MCV 90.8 (*) PLATELET COUNT 505 (*) All other components within normal limits LIPASE - Normal CULTURE, URINE COMPLETE BLOOD COUNT (CBC) WITH DIFF Narrative: The following orders were created for panel order CBC with Diff [id number]. Procedure Abnormality Status --------- ------ CBC with Auto Differential[[id number]] Abnormal Final result Please view results for these tests on the individual orders. EXTRA TUBES Narrative: The following orders were created for panel order Extra Tubes. Procedure Abnormality Status --------- ------ Gold Top Tube[[id number]] In process MINT GREEN, LI HEPARIN/S...[[id number]] In process Please view results for these tests on the individual orders. POCT URINE HCG () GOLD TOP TUBE MINT GREEN, LI HEPARIN/SST TOP TUBE CT ABDOMEN PELVIS W/ CONTRAST Final Result IMPRESSION: 1. No acute findings identified to suggest etiology of the patient's symptoms 2. Appendix appears unremarkable. URINALYSIS REFLEX IF INDICATED BY ABNORMAL RESULTS Final Result CBC with Diff [id number] Final Result CMP (Comprehensive Metabolic Panel) Final Result Lipase [id number] Final Result Extra Tubes (Results Pending) Procedures Imaging Results CT ABDOMEN PELVIS W/ CONTRAST (Final result) Result time 05/19/21 17:38:03 Final result by Feliberto Guidry MD (05/19/21 17:38:03) Impression: IMPRESSION: 1. No acute findings identified to suggest etiology of the patient's symptoms 2. Appendix appears unremarkable. Narrative: EXAM DESCRIPTION: CT ABDOMEN PELVIS W/ CONTRAST REASON FOR STUDY: Lower abdominal pain with nausea for 5 days TECHNIQUE: CT scan of the abdomen and pelvis performed with intravenous and without oral contrast using helical scanning technique with dynamic intravenous contrast injection. Reconstructed coronal and sagittal MPR images reviewed. All images stored on PACS. Automated exposure control was used as a dose optimization technique for this examination. CONTRAST TYPE/DOSE: 100 mL of Isovue 370 injected via left antecubital fossa vein COMPARISON: None available FINDINGS: LOWER CHEST: No significant pulmonary abnormalities. [...] THIS IS AN ELECTRONICALLY VERIFIED FINAL REPORT 05/19/2021 5:35 PM - Electronically signed by Feliberto Guidry M.D. JA: NOHELIA Report ID: [id number] Reading Location: [address] Number of Diagnoses or Management Options Acute pyelonephritis: new, needed workup Lower abdominal pain: new, needed workup Nausea and vomiting: new, needed workup Amount and/or Complexity of Data Reviewed Clinical lab tests: ordered and reviewed Tests in the radiology section of CPT??: ordered and reviewed Tests in the medicine section of CPT??: ordered and reviewed Decide to obtain previous medical records or to obtain history from someone other than the patient:yes Review and summarize past medical records: yes Independent visualization of images, tracings, or specimens: yes Risk of Complications, Morbidity, and/or Mortality Presenting problems: moderate Diagnostic procedures: moderate Management options: low Coding Clinical Impression 1. Acute pyelonephritis 2. Lower abdominal pain 3. Nausea and vomiting The patient remained stable throughout their ED stay. My clinical impression was discussed with thepatient/family. Labs and radiology results were reviewed with them. I gave them the opportunity to ask questions, and addressed them as completely as possible given the information available at present. The therapeutic plan was discussed, instructions were given and the importance of primary care follow up was stressed and encouraged. The patient/family voiced understanding of the plan, indications to return, and the need for follow up. * Kristen Yang RN - 05/19/2021 4:37 PM CDT Patient medicated per provider orders. Patient educated on intended effects and side effects of medication and verbalized understanding, able to provide teach back of education. Mother at bedside. Call light within reach. * Kristen Yang RN - 05/19/2021 4:[address] Salas at bedside. * Kristen Yang RN - 05/19/2021 3:38 PM CDT Patient ambulatory to triage with mother with c/o generalized abdominal pain that is worse in her lower abdomen with nausea starting 5 days ago. Patient reports vomiting 2 days ago. Denies diarrhea. Denies fevers. Denies difficulty urinating. documented in this encounter Plan of Treatment Upcoming Encounters Date Type Department Care Team (Late st Contact Info) Description 09/18/2024 1:00 PM PATROL AGENT [facility] [address] [place] [address] Citlalli Talbert Kristyn, PAC [address] [place] [address] Discharge Disposition: Discharged to home or Selfcare 09/25/2024 2:15 PM PATROL AGENT [facility] [address] [place] [address] Citlalli Talbert January, [address] [place] [address] Discharge Disposition: Discharged to home or Selfcare documented as of this encounter Procedures Procedure Name Priority Date/Time Associated Diagnosis Comments CT ABDOMEN PELVIS W/ CONTRAST STAT 05/19/2021 5:13 PM CDT URINALYSIS REFLEX IF INDICATED BY ABNORMAL RESULTS STAT 05/19/2021 4:38 PM CDT CULTURE, URINE STAT 05/19/2021 4:38 PM CDT POCT URINE HCG () STAT 05/19/2021 4:35 PM CDT EXTRA TUBES STAT 05/19/2021 4:17 PM CDT MINT GREEN, LI HEPARIN/SST TOP TUBE STAT 05/19/2021 4:17 PM CDT GOLD TOP TUBE STAT 05/19/2021 4:17 PM CDT CBC WITH AUTO DIFFERENTIAL STAT 05/19/2021 4:16 PM CDT LIPASE STAT 05/19/2021 4:16 PM CDT CMP (COMPREHENSIVE METABOLIC PANEL) STAT 05/19/2021 4:16 PM CDT COMPLETE BLOOD COUNT (CBC) WITH DIFF STAT 05/19/2021 4:16 PM CDT documented in this encounter Results * CT ABDOMEN PELVIS W/ CONTRAST (05/19/2021 5:13 PM CDT) Anatomical Region Laterality Modality Abdomen N/A Computed Tomogra phy 05/19/2021 5:35 PM CDT Impressions 05/19/2021 5:38 PM CDT IMPRESSION: ?? 1. ??No acute findings identified to suggest etiology of the patient's symptoms 2. ??Appendix appears unremarkable. Narrative 05/19/2021 5:38 PM CDT EXAM DESCRIPTION: ?? CT ABDOMEN PELVIS W/ CONTRAST REASON FOR STUDY: ??Lower abdominal pain with nausea for 5 days TECHNIQUE: ??CT scan of the abdomen and pelvis performed with intravenous and ??without oral contrast using helical scanning technique with dynamic intravenous contrast injection. Reconstructed coronal and sagittal MPR images reviewed. All images stored on PACS. Automated exposure control was used as a dose optimization technique for this examination. CONTRAST TYPE/DOSE: ?? 100 mL of Isovue 370 injected via ??left antecubital fossa vein COMPARISON: ?? None available FINDINGS: ??LOWER CHEST: ??No significant pulmonary abnormalities. No effusion. LIVER: ??Normal size. ??No identified cystic or solid masses. GALLBLADDER: ??No stones identified. No wall thickening or inflammatory changes. BILE DUCTS: ??No intrahepatic or extrahepatic ductal dilatation. SPLEEN: ??Normal size. ??No focal lesions. PANCREAS: ??No identified cystic or solid masses. No significant calcifications. No adjacent inflammation or peripancreatic fluid collections. Pancreatic duct not dilated. ADRENALS: ??Normal. KIDNEYS/URINARY TRACT: ??No identified significant cystic or solid masses. No visualized stones. No hydronephrosis or hydroureter. Symmetric enhancement. ??Urinary bladder is unremarkable. GI: ??No dilated bowel loops. No obvious wall thickening. ??Normal appendix. ??No significant diverticular disease. PERITONEUM: ??No ascites or free air. RETROPERITONEUM: ??No mass or adenopathy. REPRODUCTIVE: ??No significant abnormality. VASCULATURE: ??No abdominal aortic aneurysm. MUSCULOSKELETAL: ??No significant abnormality. OTHER: ??No other abnormality. THIS IS AN ELECTRONICALLY VERIFIED FINAL REPORT 05/19/2021 5:35 PM - Electronically signed by Feliberto Guidry M.D. JA: NOHELIA D: ??05/19/2021 5:35 PM T: ??05/19/2021 5:35 PM Report ID: [id number] Reading Location: ??[id number] Procedure Note Feliberto Guidry MD - 05/19/2021 EXAM DESCRIPTION: CT ABDOMEN PELVIS W/ CONTRAST REASON FOR STUDY: Lower abdominal pain with nausea for 5 days TECHNIQUE: CT scan of the abdomen and pelvis performed with intravenous and without oral contrast using helical scanning technique with dynamic intravenous contrast injection. Reconstructed coronal and sagittal MPR images reviewed. All images stored on PACS. Automated exposure control was used as a dose optimization technique for this examination. CONTRAST TYPE/DOSE: 100 mL of Isovue 370 injected via left antecubital fossa vein COMPARISON: None available FINDINGS: LOWER CHEST: No significant pulmonary abnormalities. [...] THIS IS AN ELECTRONICALLY VERIFIED FINAL REPORT 05/19/2021 5:35 PM - Electronically signed by Feliberto Guidry M.D. JA: NOHELIA Report ID: [id number] Reading Location: [place] [address] IMPRESSION: 1. No acute findings identified to suggest etiology of the patient's symptoms 2. Appendix appears unremarkable. Jamaal Salas MD IMG CT ORDERABLES Final Res ult * Culture, Urine (05/19/2021 4:38 PM CDT) CULTURE RESULTS MIXED GROWTH OF 3 OR MORE ORGANISMS, PROBABLE COLLECTION CONTAMINATION, SUGGEST REPEAT URINE CULTURE. 05/20/2021 4:10 PM CDT [facility] Urine URINE SPECIMEN COLLECTION, CLEAN CATCH / Unknown Non-Phlebotomy Collection / Unknown 05/19/2021 4:38 PM CDT 05/19/2021 5:04 PM CDT us Jamaal Salas MD MICROBIOLOGY - GENERAL ORDE RABLES Final Result [facility] [address] [place] [address], [place] * (ABNORMAL) URINALYSIS REFLEX IF INDICATED BY ABNORMAL RESULTS (05/19/2021 4:38 PM CDT) SPECIFIC GRAVITY 1.020 1.003 - 1.030 05/19/2021 5:26 PM CDT [facility] URINE PH 6.5 5.0 - 9.0 05/19/2021 5:26 PM CDT [facility] WBC ESTERASE 100 /uL(A) Negative 05/19/2021 5:26 PM CDT [facility] NITRITE Negative Negative 05/19/2021 5:26 PM CDT [facility] PROTEIN, RANDOM URINE Negative Negative 05/19/2021 5:26 PM CDT [facility] URINE GLUCOSE, QUAL Negative Negative 05/19/2021 5:26 PM CDT [facility] URINE KETONES 15 mg/dL(A) Negative 05/19/2021 5:26 PM CDT [facility] UROBILINOGEN Normal Normal mg/dL 05/19/2021 5:26 PM CDT [facility] URINE BLOOD 10 /uL(A) Negative cinthia/ul 05/19/2021 5:26 PM CDT [facility] URINALYSIS COLOR Dark Yellow 021 5:26 PM CDT [facility] URINALYSIS CLARITY Very Cloudy 05/19/2021 5:26 PM CDT [facility] WBC (Urine) 21-50(A) Negative, 0-5 /hpf 05/19/2021 5:26 PM CDT [facility] URINE RBC'S 3-5(A) Negative, 0-2 /hpf 05/19/2021 5:26 PM CDT [facility] EPITHELIAL CELLS Large amount squamous /lpf 05/19/2021 5:26 PM CDT [facility] BACTERIA, URINE Moderate(A) Negative /hpf 05/19/2021 5:26 PM CDT [facility] URINE MUCOUS Many 05/19/2021 5:26 PM CDT [facility] Urine URINE SPECIMEN COLLECTION, CLEAN CATCH / Unknown Non-Phlebotomy Collection / Unknown 05/19/2021 4:38 PM CDT 05/19/2021 5:04 PM CDT Jamaal Salas MD URINE ORDERABLES Final Resu lt Performing Organization Address City/[facility]/ZIP Co de Phone Number [facility] [address] [place] [address] * POCT Urine HCG () (05/19/2021 4:35 PM CDT) POC URINE Negative POC URINE CONTROL Biology Research Assistant Pass Urine 05/19/2021 4:35 PM CDT Jamaal Salas MD POINT OF CARE TESTING (MANU AL) Final Result * YAYA BRANDT HEPARIN/SST TOP TUBE (05/19/2021 4:17 PM CDT) Blood No Phlebotomy Charged / Unknown 05/19/2021 4:17 PM CDT 05/19/2021 4:17 PM CDT Jamaal Salas MD HEMATOLOGY ORDERABLES Final Result Performing Organization Address City/[facility]/ZIP Co de Phone Number [facility] [address] [place] [address] * Gold Top Tube (05/19/2021 4:17 PM CDT) Blood No Phlebotomy Charged / Unknown 05/19/2021 4:17 PM CDT 05/19/2021 4:17 PM CDT Jamaal Salas MD CHEMISTRY ORDERABLES Final Result Performing Organization Address City/[facility]/ZIP Co de Phone Number [facility] [address] [place] [address] * (ABNORMAL) CBC with Auto Differential (05/19/2021 4:16 PM CDT) [facility] WBC 7.98 4.10 - 9.40 10(3)/mcL 05/19/2021 4:21 PM CDT [facility] RBC 4.58 3.93 - 4.90 10(6)/mcL 05/19/2021 4:21 PM CDT [facility] HEMOGLOBIN (HGB) 13.7(H) 10.8 - 13.3 g/dL 05/19/2021 4:21 PM CDT [facility] HEMATOCRIT (HCT) 41.6(H) 33.4 - 40.4 % 05/19/2021 4:21 PM CDT [facility] MCV 90.8(H) 76.9 - 90.6 fL 05/19/2021 4:21 PM CDT [facility] MCH 29.9 24.8 - 30.2 pg 05/19/2021 4:21 PM CDT [facility] MCHC 32.9 31.5 - 34.2 g/dL 05/19/2021 4:21 PM CDT [facility] PLATELET COUNT 505(H) 194 - 345 10(3)/[facility] 05/19/2021 4:21 PM CDT [facility] RDW 13.1 12.3 - 14.6 % 05/19/2021 4:21 PM CDT [facility] MPV 9.6 9.6 - 11.7 fL 05/19/2021 4:21 PM CDT [facility] NEUTROPHILS 70.1 42.0 - 78.0 % 05/19/2021 4:21 PM CDT [facility] LYMPHOCYTES 22.4 13.0 - 41.0 % 05/19/2021 4:21 PM CDT [facility] MONOCYTES 5.8 4.0 - 12.0 % 05/19/2021 4:21 PM CDT [facility] EOSINOPHILS 1.1 0.0 - 4.0 % 05/19/2021 4:21 PM CDT [facility] BASOPHILS 0.6 0.0 - 1.0 % 05/19/2021 4:21 PM CDT [facility] ABSOLUTE NEUTROPHILS 5.59 2.30 - 6.70 10(3)/[facility] 05/19/2021 4:21 PM CDT [facility] ABSOLUTE LYMPHOCYTES 1.79 0.80 - 3.20 10(3)/[facility] 05/19/2021 4:21 PM CDT [facility] ABSOLUTE MONOCYTES 0.46 0.40 - 0.90 10(3)/[facility] 05/19/2021 4:21 PM CDT [facility] ABSOLUTE EOSINOPHIL 0.09 0.00 - 0.20 10(3)/[facility] 05/19/2021 4:21 PM CDT [facility] ABSOLUTE BASOPHILS 0.05 0.00 - 0.10 10(3)/[facility] 05/19/2021 4:21 PM CDT [facility] NRBC PER 100 WBC 0 05/19/20 4:21 PM CDT [facility] Blood Venipuncture / Unknown 05/19/2021 4:16 PM CDT 05/19/2021 4:16 PM CDT Jamaal Salas MD HEMATOLOGY ORDERABLES Final Result [facility] [address] [place] [address] * Lipase [id number] (05/19/2021 4:16 PM CDT) LIPASE 29.4 13 - 60 U/L 05/19/2021 4:37 PM CDT [facility] Blood Venipuncture / Unknown 05/19/2021 4:16 PM CDT 05/19/2021 4:16 PM CDT Jamaal Salas MD CHEMISTRY ORDERABLES Final Result [facility] [address] [place] [address] * (ABNORMAL) CMP (Comprehensive Metabolic Panel) (05/19/2021 4:16 PM CDT) SODIUM 136 136 - 144 mmol/L 05/19/2021 4:37 PM CDT [facility] POTASSIUM 3.6 3.5 - 5.1 mmol/L 05/19/2021 4:37 PM CDT [facility] CHLORIDE 100 100 - 110 mmol/L 05/19/2021 4:37 PM CDT [facility] CO2, VENOUS 24 22 - 32 mmol/L 05/19/2021 4:37 PM CDT [facility] ANION GAP 15.6 8.0 - 20.0 mmol/L 05/19/2021 4:37 PM CDT [facility] GLUCOSE 132(H) 70 - 99 mg/dL 05/19/2021 4:37 PM CDT [facility] BUN 7 5 - 19 mg/dL 05/19/2021 4:37 PM CDT [facility] CREATININE, BLOOD 0.67 0.40 - 1.00 mg/dL 05/19/2021 4:37 PM CDT [facility] BUN/CREATININE RATIO 10(L) 12 - 20 ratio 05/19/2021 4:37 PM CDT [facility] TOTAL PROTEIN 7.4 6.0 - 8.0 g/dL 05/19/2021 4:37 PM CDT [facility] ALBUMIN 4.6(H) 3.2 - 4.5 g/dL 05/19/2021 4:37 PM CDT [facility] A/G RATIO 1.6 1.0 - 2.0 05/19/2021 4:37 PM CDT [facility] CALCIUM 9.7 8.9 - 10.3 mg/dL 05/19/2021 4:37 PM CDT [facility] T BILI 0.7 <=1.2 mg/dL 05/19/2021 4:37 PM CDT [facility] SGOT (AST) 76(H) <=32 U/L 05/19/2021 4:37 PM CDT [facility] SGPT (ALT) 125(H) <=41 U/L 05/19/2021 4:37 PM CDT [facility] ALKALINE PHOSPHATASE 89(H) 45 - 87 U/L 05/19/2021 4:37 PM CDT [facility] GFR, EST. NONAFRICAN 05/19/2021 4:37 PM CDT [facility] Comment:UNABLE TO CALCULATE GFR, EST. 05/19/2021 4:37 PM CDT [facility] Comment:UNABLE TO CALCULATE Blood Venipuncture / Unknown 05/19/2021 4:16 PM CDT 05/19/2021 4:16 PM CDT Jamaal Salas MD CHEMISTRY ORDERABLES Final Result [facility] [place] [address] documented in this encounter Visit Diagnoses Diagnosis Acute pyelonephritis- Primary Acute pyelonephritis without lesion of renal medullary necrosis Lower abdominal pain Abdominal pain, other specified site Nausea and vomiting Nausea with vomiting documented in this encounter Administered Medications Inactive Administered Medications - up to 3 most recent administrations Medication Order MAR Action Action Date Dose Rate Site 0.9 % sodium chloride solution at 500 mL/hr, Intravenous, ONCE, 1 dose, On Mon05/19/21 at 1700 New Bag 05/19/2021 4:35 PM CDT 1,000 mL 500 mL/hr cefTRIAXone (ROCEPHIN) injection 1 g 1 g, Intravenous, ONCE, 1 dose, On Mon05/19/21 at 1830, Indications: PyelonephritisIndications:P yelonephritis Given 05/19/2021 5:55 PM CDT 1 g iopamidol (ISOVUE-370) 76 % injection 100 mL 100 mL, Intravenous, ONCE, 1 dose, On Mon05/19/21 at 1730 Given 05/19/2021 5:11 PM CDT 100 mL ketorolac (TORADOL) injection 30 mg 30 mg, Intravenous, ONCE, 1 dose, On Mon05/19/21 at 1700 Given 05/19/2021 4:36 PM CDT 30 mg ondansetron (ZOFRAN) injection 4 mg 4 mg, Intravenous, ONCE, 1 dose, On Mon05/19/21 at 1700 Given 05/19/2021 4:36 PM CDT 4 mg documented in this encounter Active and Recently Administered Medications Times are shown in CDT. Scheduled Medication Order 05/17/2021 05/18/2021 05/19/2021 0.9 % sodium chloride solution (COMPLETED) at 500 mL/hr, Intravenous, ONCE, 1 dose, On Mon05/19/21 at 1700 1635 (New Bag - Prov ider: Kristen Yang RN)1748 (Stopped - Provider: Stephanie Hodgson RN) cefTRIAXone (ROCEPHIN) injection 1 g (COMPLETED) 1 g, Intravenous, ONCE, 1 dose, On Mon05/19/21 at 1830, Indications: Pyelonephritis 1755 (Given - Provid er: Stephanie Hodgson RN) iopamidol (ISOVUE-370) 76 % injection 100 mL (COMPLETED) 100 mL, Intravenous, ONCE, 1 dose, On Mon05/19/21 at 1730 1711 (Given - Provid er: Elena Wagner, RT(R) ([place])) ketorolac (TORADOL) injection 30 mg (COMPLETED) 30 mg, Intravenous, ONCE, 1 dose, On Mon05/19/21 at 1700 1636 (Given - Provid er: Kristen Yang RN) ondansetron (ZOFRAN) injection 4 mg (COMPLETED) 4 mg, Intravenous, ONCE, 1 dose, On Mon05/19/21 at 1700 1636 (Given - Provid er: Kristen Yang RN) documented in this encounter Care Teams Slurry Plant Operator Relationship Specialty Start Date End Date Jabari Bynum MD [address] [place] [address] PCP - General Pediatrics 06/19/18 09/03/22 documented as of this encounter
--- OUTSIDE RECORDS SUMMARY | 2024-08-31 21:55 | XMS_ITS | Encounter Summary ---
Author Organization [facility] [employer] Care Team Providers Care Immigration Lawyer Name Role Phone Provider, None Primary Care Provider Unavailabl e Encounter Details Date Type Department Care Team (Latest Contact Info) Description 03/09/2023 Travel Social History Tobacco Use Types Packs/Day [...] Sex Assigned at Female 10/25/2023 8:55 PM PROGRAM DIRECTOR/MUSIC DIRECTOR Legal Sex Female 8:58 PM CDT Gender Identity Female 10/25/2023 8:55 PM PROGRAM DIRECTOR/MUSIC DIRECTOR Sexual Orientation Not on file COVID-19 Exposure Response Date Recorded In the last 10 days, have yo u been in contact with someone who was confirmed or suspected to have Coronavirus/COVID-19? No / Unsure 03/09/2023 3:19 PM CDT documented as of this encounter Plan of Treatment Upcoming Encounters Date Type Department Care Team (Late st Contact Info) Description 09/18/2024 1:00 PM PROGRAM DIRECTOR/MUSIC DIRECTOR Lab [facility] [address] [place] [id number] Citlalli Talbert Kristyn, [address] [place] [address] Discharge Disposition: Discharged to home or Selfcare 09/25/2024 2:15 PM PROGRAM DIRECTOR/MUSIC DIRECTOR Office Visit [facility] [address] [place] [id number] Citlalli Talbert, [address] [place] [address] Discharge Disposition: Discharged to home or Selfcare documented as of this encounter Visit Diagnoses Not on filedocumented in this encounter Care Teams Immigration Lawyer Relationship Specialty Start Date End Date Provider, None [place] PCP - General 09/04/22 01/01/24 documented as of this encounter
--- OUTSIDE RECORDS SUMMARY | 2024-08-31 21:55 | XMS_ITS | Encounter Summary ---
Author Organization [facility] Address [address] [place] [address] Phone Care Team Providers Care Curator Of Education Name Role Phone Jabari Bynum MD Primary Care Provider Reason for Visit * Reason Comments Flank Pain Encounter Details Date Type Department Care Team ([facility] st Contact Info) Description 11/14/2021 10:16 AM CDT - 11/14/2021 2:20 PM CDT Emergency [facility] Emergency [address] [place] [address] Luciana Calabrese APRN, MATHEMATICAL ENGINEERING TECHNICIAN [address] [place] [address] Acute cystitis with hematuria Discharge Disposition: Discharged to home or Selfcare [...] Sex Assigned at Female 10/25/2023 8:55 PM LICENSING REGISTRATION EXAMINER Legal Sex Female 8:58 PM CDT Gender Identity Female 10/25/2023 8:55 PM LICENSING REGISTRATION EXAMINER Sexual Orientation Not on file COVID-19 Exposure Response Date Recorded In the last 10 days, have yo u been in contact with someone who was confirmed or suspected to have Coronavirus/COVID-19? No / Unsure 11/14/2021 10:13 AM CDT documented as of this encounter Last Filed Vital Signs Vital Sign Reading Time Taken Comments Blood Pressure 96/56 11/14/2021 2:00 PM CDT Pulse 60 11/14/2021 2:00 PM CDT Temperature 36.3 ??C (97.3 ??F) 11/14/2021 10:13 AM C DT Respiratory Rate 22 11/14/2021 10:16 AM CDT Oxygen Saturation 99% 11/14/2021 2:00 PM CDT Inhaled Oxygen Concentration - - Weight 79.8 kg (176 lb) 11/14/2021 10:13 AM CDT Height 156.2 cm (5' 1.5 ) 11/14/2021 10:13 AM CD T Body Mass Index 32.72 11/14/2021 10:13 AM CDT Body Mass Index Percentile 96.19% 11/14/2021 10: 13 AM CDT Growth Chart: [facility] (Girls, 2- 20 Years) documented in this encounter Discharge Instructions * Discharge Instructions* Luciana Calabrese APRN, CNP - 11/14/2021 1:58 PM CDT Please follow-up with PCP. Take medication as prescribed. * Attachments The following attachments cannot be sent through Care Everywhere. * Urinary Tract Infection Adult Xlmh-un-Zpox (Omani) documented in this encounter Medications at Time [...] - 1st line. 10 Tablet 04/22/2021 02/20/2024 phenazopyridine (Pyridium) 200 MG Tablet Take 1 Tablet by mouth 3 times daily for 3 days. 9 Tablet 11/14/2021 11/17/2021 SERTRALINE HCL PO Take 10 mg by mouth daily. 02/20/2024 sulfamethoxazole -trimethoprim DS (Bactrim DS) 800-160 MG Tablet Take 1 Tablet by mouth 2 times daily for 7 days. 14 Tablet 11/14/2021 11/21/2021 topiramate (TOPAMAX) 25 MG Tablet Take 25 mg by mouth daily. 02/20/2024 documented as of this encounter ED Notes * Shannan Bhardwaj RN - 11/14/2021 2:15 PM CDT Patient discharged. Discharge instructions and patient educational material reviewed with patient; questions and concerns addressed; patient verbalizes understanding, using teach back. Patient was given 2 prescriptions. Patient discharged per ambulatory mode with self as responsible libertarian. SL D/C'ed with Ted cath intact. * Shannan Bhardwaj RN - 11/14/2021 2:00 PM CDT Pt medicated per provider orders. Pt educated on intended effects and side effects of medication and verbalized understanding, able to provide teach back of education. * Shannan Bhardwaj RN - 11/14/2021 1:10 PM CDT Pt back from CT. * Shannan Bhardwaj RN - 11/14/2021 11:25 AM CDT Pt assisted to bathroom. Pt states her pain has subsided and feels so much better . Pt is no longer tearful and is resting comfortably. * Shannan Bhardwaj RN - 11/14/2021 10:40 AM CDT Pt presents to ED with mother for bilateral flank pain that started Monday. Pt complains of constant stabbing pain and pain upon urination. Pt states she has been having to urinate frequently, havingburning while voiding and today starting having blood tinged urine. Pt also complains of N/V along with the pain. * Luciana Calabrese APRN, ISAAC - 11/14/2021 10:35 AM CDT Chief Complaint Patient presents with ??? Flank Pain Rosalba So is a 16 y.o. female who presents to the ED c/o bilateral flank pain and dysuriastarting on Monday. Patient reports severe bilateral flank pain that is constant and sharp. She rates the pain a 10/10. She also reports urinary frequency, dysuria, and blood in her urine. Denies abdominal pain, but reports nausea and vomiting. She denies hematemesis. Reports diarrhea; denies bloodin urine. Denies fevers. Reports history of pyelonephritis. Past Medical History Positives No date: Anxiety No date: Migraines Current Facility-Administered Medications Medication Dose Route Frequency Provider Last Rate Last Admin ??? cefTRIAXone (ROCEPHIN) injection 1 g 1 g Intravenous Once Luciana Calabrese APRN, MATHEMATICAL ENGINEERING TECHNICIAN Current Outpatient Medications Medication Sig Dispense Refill [...] - 1st line. 10 Tablet 0 ??? phenazopyridine (Pyridium) 200 MG Tablet Take 1 Tablet by mouth 3 times daily for 3 days. 9 Tablet 0 ??? SERTRALINE HCL PO Take 10 mg by mouth daily. ??? sulfamethoxazole-trimethoprim DS (Bactrim DS) 800-160 MG Tablet [...] History Narrative ??? Not on file BP 112/58 Pulse 64 Temp 97.3 ??F (36.3 ??C) (Tympanic) Resp (!) 22 Ht 5' 1.5 (1.562 m) Wt 176 lb (79.8 kg) LMP 11/01/2021 SpO2 100% BMI 32.72 kg/m?? Review of Systems Constitutional: Negative for chills and fever. HENT: Negative for congestion, ear pain, rhinorrhea and sore throat. Eyes: Negative for discharge. Respiratory: Negative for cough, chest tightness, shortness of breath and wheezing. Cardiovascular: Negative for chest pain and palpitations. Gastrointestinal: Positive for diarrhea, nausea and vomiting. Negative for abdominal pain and bloodin stool. Genitourinary: Positive for dysuria, flank pain, frequency, hematuria and urgency. Negative for difficulty urinating and menstrual problem. Musculoskeletal: Negative for arthralgias and myalgias. Skin: Negative for rash and wound. Neurological: Negative for dizziness, syncope and headaches. Psychiatric/Behavioral: The patient is nervous/anxious. All other systems reviewed and are negative. [...] There is no abdominal tenderness. There is right CVA tenderness and left CVA tenderness. There is no guarding or rebound. Musculoskeletal: General: Normal range of motion. Cervical back: Normal range of motion. Skin: General: Skin is warm and dry. Neurological: Mental Status: She is alert and oriented to person, place, and time. Cranial Nerves: No cranial nerve deficit. Procedures Imaging Results CT RENAL STONE STUDY (ABDOMEN AND PELVIS W/O CONTRAST) (Final result) Result time 11/14/21 13:51:02 Final result by Karen Turcios MD (11/14/21 13:51:02) Impression: IMPRESSION: 1. No obstructing urolithiasis, hydronephrosis or hydroureter. Evaluation for urinary tract infection limited on noncontrast imaging. Correlate with laboratory values, urinalysis and urine culture. 2. No bowel obstruction. Appendix unremarkable. Narrative: EXAM DESCRIPTION: CT RENAL STONE STUDY (ABDOMEN AND PELVIS W/O CONTRAST) REASON FOR STUDY: Bilateral flank pain for 3 days. Patient reports symptoms started on the right and progressed to both sides. Patient reports dark yellow urine with bright red blood. TECHNIQUE: CT scan of the abdomen and pelvis performed without intravenous and without oral contrast using helical scanning technique. Reconstructed coronal and sagittal MPR images reviewed. All images stored on PACS. Automated exposure control was used as a dose optimization technique for this examination. COMPARISON: 05/19/2021. FINDINGS: The sensitivity for detection of visceral lesions is diminished without the use of intravenous contrast. LOWER CHEST: The lung bases are clear. There is no pleural pericardial effusion. LIVER: The liver is normal in size. No focal hepatic lesion given the limitation of the lack of intravenous contrast. GALLBLADDER: No stones identified. No wall thickening or inflammatory changes. BILE DUCTS: No intrahepatic or extrahepatic ductal dilatation. SPLEEN: Normal size. No perisplenic fluid. PANCREAS: No peripancreatic inflammatory process or fluid collection. ADRENALS: . Unremarkable. KIDNEYS/URINARY TRACT: Potential punctate 1 mm nonobstructing calculus within the left kidney. There is no hydronephrosis or hydroureter. No ureteral calculus. No perinephric or Rose Mary ureteral stranding. The urinary bladder is unremarkable. GI: The stomach is unremarkable. Bowel loops are normal in caliber. There is no wall thickening or obstruction. The appendix is unremarkable. There is minimal diverticulosis. PERITONEUM: No ascites or free air. Scattered nonenlarged mesenteric nodes are stable. RETROPERITONEUM: There is no retroperitoneal lymphadenopathy. Scattered subcentimeter nodes are present. REPRODUCTIVE: No significant abnormality. VASCULATURE: No abdominal aortic aneurysm. MUSCULOSKELETAL: No significant abnormality. OTHER: No other abnormality. THIS IS AN ELECTRONICALLY VERIFIED FINAL REPORT 11/14/2021 1:48 PM - Electronically signed by Karen Winn M.D. TB: TB Report ID: [id number] Reading Location: [facility] Labs Reviewed CMP (COMPREHENSIVE METABOLIC PANEL) - Abnormal; Notable for the following components: Result Value GLUCOSE 115 (*) BUN/CREATININE RATIO 11 (*) ALKALINE PHOSPHATASE 106 (*) All other components within normal limits URINALYSIS REFLEX IF INDICATED BY ABNORMAL RESULTS - Abnormal; Notable for the following components: WBC ESTERASE 25 /uL (*) NITRITE Positive (*) PROTEIN, RANDOM URINE 100 mg/dL (*) URINE BLOOD 150 /uL (*) WBC (Urine) 51-150 (*) URINE RBC'S 21-50 (*) BACTERIA, URINE Packed (*) All other components within normal limits CBC WITH AUTO DIFFERENTIAL - Abnormal; Notable for the following components: WBC 14.78 (*) PLATELET COUNT 521 (*) NEUTROPHILS 80.7 (*) LYMPHOCYTES 11.8 (*) ABSOLUTE NEUTROPHILS 11.95 (*) All other components within normal limits LIPASE - Normal CULTURE, URINE COMPLETE BLOOD COUNT (CBC) WITH DIFF Narrative: The following orders were created for panel order CBC with Diff [id number]. Procedure Abnormality Status --------- ------ CBC with Auto Differential[[id number]] Abnormal Final result Please view results for these tests on the individual orders. UR TEST QUAL Labs Reviewed CMP (COMPREHENSIVE METABOLIC PANEL) - Abnormal; Notable for the following components: Result Value GLUCOSE 115 (*) BUN/CREATININE RATIO 11 (*) ALKALINE PHOSPHATASE 106 (*) All other components within normal limits URINALYSIS REFLEX IF INDICATED BY ABNORMAL RESULTS - Abnormal; Notable for the following components: WBC ESTERASE 25 /uL (*) NITRITE Positive (*) PROTEIN, RANDOM URINE 100 mg/dL (*) URINE BLOOD 150 /uL (*) WBC (Urine) 51-150 (*) URINE RBC'S 21-50 (*) BACTERIA, URINE Packed (*) All other components within normal limits CBC WITH AUTO DIFFERENTIAL - Abnormal; Notable for the following components: WBC 14.78 (*) PLATELET COUNT 521 (*) NEUTROPHILS 80.7 (*) LYMPHOCYTES 11.8 (*) ABSOLUTE NEUTROPHILS 11.95 (*) All other components within normal limits LIPASE - Normal CULTURE, URINE COMPLETE BLOOD COUNT (CBC) WITH DIFF Narrative: The following orders were created for panel order CBC with Diff [id number]. Procedure Abnormality Status --------- ------ CBC with Auto Differential[[id number]] Abnormal Final result Please view results for these tests on the individual orders. UR TEST QUAL CT RENAL STONE STUDY (ABDOMEN AND PELVIS W/O CONTRAST) Final Result IMPRESSION: 1. No obstructing urolithiasis, hydronephrosis or hydroureter. Evaluation for urinary tract infection limited on noncontrast imaging. Correlate with laboratory values, urinalysis and urine culture. 2. No bowel obstruction. Appendix unremarkable. URINALYSIS REFLEX IF INDICATED BY ABNORMAL RESULTS Final Result Ur Test Qual Final Result CBC with Diff [id number] Final Result Comprehensive Metabolic Panel (Cmp) [id number] Final Result Lipase [id number] Final Result MDM Number of Diagnoses or Management Options Amount and/or Complexity of Data Reviewed Clinical lab tests: ordered and reviewed Tests in the radiology section of CPT??: ordered and reviewed Review and summarize past medical records: yes Reviewed: previous chart, nursing note and vitals Reviewed previous: labs and CT scan Interpretation: labs and CT scan Clinical Impression 1. Acute cystitis with hematuria Labs and CT scan are unremarkable. Urinalysis indicates urinary tract infection. Will give RocephinIV and prescribe Bactrim. Patient reports significant relief of symptoms after IVF and IV Toradol. Recommended follow-up with PCP. The patient remained stable throughout their ED [...] the need for follow up. Cosigned by Jamaal Salas MD at 11/14/2021 4:14 PM CDT * Shannan Bhardwaj RN - 11/14/2021 10:34 AM CDT Pt medicated per provider orders. Pt educated on intended effects and side effects of medication and verbalized understanding, able to provide teach back of education. * Jacquelyn Yadav RN - 11/14/2021 10:15 AM CDT Patient presents to ED triage with complaint of bilateral flank pain x 3 days. Patient states that it started on the right side and progressed to both side. Patient states that her urine is dark yellow and has bright red blood. Patient crying in triage. documented in this encounter Plan of Treatment Upcoming Encounters Date Type Department Care Team (Late st Contact Info) Description 09/18/2024 1:00 PM LICENSING REGISTRATION EXAMINER Lab [facility] [address] [place] [address] [facility], PAC [address] [place] [address] Discharge Disposition: Discharged to home or Selfcare 09/25/2024 2:15 PM LICENSING REGISTRATION EXAMINER Office Visit [facility] [address] [place] [address] [facility], PAC [address] [place] [address] Discharge Disposition: Discharged to home or Selfcare documented as of this encounter Procedures Procedure Name Priority Date/Time Associated Diagnosis Comments CT RENAL STONE STUDY (ABDOMEN AND PELVIS W/O CONTRAST) STAT 11/14/2021 1:08 PM CDT URINALYSIS REFLEX IF INDICATED BY ABNORMAL RESULTS STAT 11/14/2021 11:23 AM CDT UR TEST QUAL STAT 11/14/2021 11:23 AM CDT CULTURE, URINE STAT 11/14/2021 11:23 AM CDT CBC WITH AUTO DIFFERENTIAL STAT 11/14/2021 10:28 AM CDT LIPASE STAT 11/14/2021 10:28 AM CDT CMP (COMPREHENSIVE METABOLIC PANEL) STAT 11/14/2021 10:28 AM CDT COMPLETE BLOOD COUNT (CBC) WITH DIFF STAT 11/14/2021 10:28 AM CDT documented in this encounter Results * CT RENAL STONE STUDY (ABDOMEN AND PELVIS W/O CONTRAST) (11/14/2021 1:08 PM CDT) Anatomical Region Laterality Modality Abdomen N/A Computed Tomogra phy 11/14/2021 1:48 PM CDT Impressions 11/14/2021 1:51 PM CDT IMPRESSION: ?? 1. ?? No obstructing urolithiasis, hydronephrosis or hydroureter. ?? Evaluation for urinary tract infection limited on noncontrast imaging. ??Correlate with laboratory values, urinalysis and urine culture. 2. ?? No bowel obstruction. ??Appendix unremarkable. Narrative 11/14/2021 1:51 PM CDT EXAM DESCRIPTION: ?? CT RENAL STONE STUDY (ABDOMEN AND PELVIS W/O CONTRAST) REASON FOR STUDY: ?? Bilateral flank pain for 3 days. ??Patient reports symptoms started on the right and progressed to both sides. ?? Patient reports dark yellow urine with bright red blood. TECHNIQUE: CT scan of the abdomen and pelvis performed without intravenous and ?? without ??oral contrast using helical scanning technique. Reconstructed coronal and sagittal MPR images reviewed. All images stored on PACS. ??Automated exposure control was used as a dose optimization technique for this examination. COMPARISON: ?? 05/19/2021. FINDINGS: The sensitivity for detection of visceral lesions is diminished without the use of intravenous contrast. LOWER CHEST: ?? The lung bases are clear. ??There is no pleural pericardial effusion. LIVER: ?? The liver is normal in size. ??No focal hepatic lesion given the limitation of the lack of intravenous contrast. GALLBLADDER: ?? No stones identified. No wall thickening or inflammatory changes. BILE DUCTS: ?? No intrahepatic or extrahepatic ductal dilatation. SPLEEN: ?? Normal size. ??No perisplenic fluid. PANCREAS: ?? No peripancreatic inflammatory process or fluid collection. ADRENALS: ?? . ??Unremarkable. KIDNEYS/URINARY TRACT: ?? Potential punctate 1 mm nonobstructing calculus within the left kidney. ??There is no hydronephrosis or hydroureter. ??No ureteral calculus. ??No perinephric or Rose Mary ureteral stranding. ??The urinary bladder is unremarkable. ?? GI: ?? The stomach is unremarkable. ??Bowel loops are normal in caliber. ??There is no wall thickening or obstruction. ??The appendix is unremarkable. ??There is minimal diverticulosis. PERITONEUM: ?? No ascites or free air. ??Scattered nonenlarged mesenteric nodes are stable. RETROPERITONEUM: ?? There is no retroperitoneal lymphadenopathy. ?? Scattered subcentimeter nodes are present. REPRODUCTIVE: ?? No significant abnormality. VASCULATURE: ?? No abdominal aortic aneurysm. MUSCULOSKELETAL: ?? No significant abnormality. OTHER: ?? No other abnormality. THIS IS AN ELECTRONICALLY VERIFIED FINAL REPORT 11/14/2021 1:48 PM - Electronically signed by ??Karen Winn M.D. TB: TB D: ??11/14/2021 1:48 PM T: ??11/14/2021 1:48 PM Report ID: [id number] Reading Location: ??[id number] Procedure Note Turcios, Karen Robin MD - 11/14/2021 EXAM DESCRIPTION: CT RENAL STONE STUDY (ABDOMEN AND PELVIS W/O CONTRAST) REASON FOR STUDY: Bilateral flank pain for 3 days. Patient reports symptoms started on the right and progressed to both sides. Patient reports dark yellow urine with bright red blood. TECHNIQUE: CT scan of the abdomen and pelvis performed without intravenous and without oral contrast using helical scanning technique. Reconstructed coronal and sagittal MPR images reviewed. All images stored on PACS. Automated exposure control was used as a dose optimization technique for this examination. COMPARISON: 05/19/2021. FINDINGS: The sensitivity for detection of visceral lesions is diminished without the use of intravenous contrast. LOWER CHEST: The lung bases are clear. There is no pleural pericardial effusion. LIVER: The liver is normal in size. No focal hepatic lesion given the limitation of the lack of intravenous contrast. GALLBLADDER: No stones identified. No wall thickening or inflammatory changes. BILE DUCTS: No intrahepatic or extrahepatic ductal dilatation. SPLEEN: Normal size. No perisplenic fluid. PANCREAS: No peripancreatic inflammatory process or fluid collection. ADRENALS: . Unremarkable. KIDNEYS/URINARY TRACT: Potential punctate 1 mm nonobstructing calculus within the left kidney. There is no hydronephrosis or hydroureter. No ureteral calculus. No perinephric or Rose Mary ureteral stranding. The urinary bladder is unremarkable. GI: The stomach is unremarkable. Bowel loops are normal in caliber. There is no wall thickening or obstruction. The appendix is unremarkable. There is minimal diverticulosis. PERITONEUM: No ascites or free air. Scattered nonenlarged mesenteric nodes are stable. RETROPERITONEUM: There is no retroperitoneal lymphadenopathy. Scattered subcentimeter nodes are present. REPRODUCTIVE: No significant abnormality. VASCULATURE: No abdominal aortic aneurysm. MUSCULOSKELETAL: No significant abnormality. OTHER: No other abnormality. THIS IS AN ELECTRONICALLY VERIFIED FINAL REPORT 11/14/2021 1:48 PM - Electronically signed by Karen Winn M.D. TB: TB Report ID: [id number] Reading Location: [facility] IMPRESSION: 1. No obstructing urolithiasis, hydronephrosis or hydroureter. Evaluation for urinary tract infection limited on noncontrast imaging. Correlate with laboratory values, urinalysis and urine culture. 2. No bowel obstruction. Appendix unremarkable. us Luciana Calabrese JOINT CUTTER MACHINE, MATHEMATICAL ENGINEERING TECHNICIAN IMG CT ORDERABLES Fin al Result * Culture, Urine (11/14/2021 11:23 AM CDT) CULTURE RESULTS ESCHERICHIA COLI 11/16/2021 2:59 PM CDT [facility] Comment:PRESUMPTIVE IDENTIFI CATION Urine URINE SPECIMEN / Unknown Non-Phlebotomy Collection / Unknown 11/14/2021 11:23 AM CDT 11/14/2021 12:07 PM CDT Narrative Organism Antibiotic Method Susceptibility Escherichia coli Ampicillin [facility] VITEK II >=32 mcg/ml: Resistant Escherichia coli Ampicillin/sulbactam [facility] VITEK II 4 mcg/ml: Susceptible Escherichia coli Cefazolin [facility] VITEK II <=4 mcg/ml: Susceptible Escherichia coli Cefepime [facility] V[facility] II <=1 mcg/ml: Susceptible Escherichia coli Ceftriaxone [facility] V[facility]K II <=1 mcg/ml: Susceptible Escherichia coli Gentamicin [facility] V[facility] II <=1 mcg/ml: Susceptible Escherichia coli Levofloxacin [facility] V[facility]K II <=0.12 mcg/ml: Susceptible Escherichia coli Meropenem [facility] VITEK II <=0.25 mcg/ml: Susceptible Escherichia coli Nitrofurantoin [facility] VITEK II <=16 mcg/ml: Susceptible Escherichia coli Piperacillin/Tazobactam [facility] VITEK II <=4 mcg/ml: Susceptible Escherichia coli Tobramycin [facility] V[facility]K II <=1 mcg/ml: Susceptible Escherichia coli Trimeth/Sulfamethoxazole [facility] VITEK I I >=320 mcg/ml: Resistant us Luciana Calabrese APRN, ISAAC MICROBIOLOGY - GENERA L ORDERABLES Final Result Performing Organization Address City/[facility]/ZIP Co de Phone Number [facility] [address] [place] [address], * Ur Test Qual (11/14/2021 11:23 AM CDT) PREG TEST,MONOCLONA L Negative 11/14/2021 12:33 PM CDT [facility] Urine URINE SPECIMEN / Unknown Non-Phlebotomy Collection / Unknown 11/14/2021 11:23 AM CDT 11/14/2021 12:07 PM CDT us Luciana Calabrese APRN, ISAAC URINE ORDERABLES Hillary l Result Performing Organization Address City/[facility]/ZIP Co de Phone Number [facility] [address] [place] [address] * (ABNORMAL) URINALYSIS REFLEX IF INDICATED BY ABNORMAL RESULTS (11/14/2021 11:23 AM CDT) SPECIFIC GRAVITY 1.005 1.003 - 1.030 11/14/2021 12:42 PM CDT [facility] URINE PH 7.0 5.0 - 9.0 11/14/2021 12:42 PM CDT [facility] WBC ESTERASE 25 /uL(A) Negative 11/14/2021 12:42 PM CDT [facility] NITRITE Positive(A) Negative 11/14/2021 12:42 PM CDT [facility] PROTEIN, RANDOM URINE 100 mg/dL(A) Negative 11/14/2021 12:42 PM CDT [facility] URINE GLUCOSE, QUAL Negative Negative 11/14/2021 12:42 PM CDT [facility] URINE KETONES Negative Negative 11/14/2021 12:42 PM CDT [facility] UROBILINOGEN Normal Normal mg/dL 11/14/2021 12:42 PM CDT [facility] URINE BLOOD 150 /uL(A) Negative cinthia/ul 11/14/2021 12:42 PM CDT [facility] URINALYSIS COLOR Yellow 11/15/19 12:42 PM CDT [facility] URINALYSIS CLARITY Very Cloudy 11/14/2021 12:42 PM CDT [facility] WBC (Urine) 51-150(A) Negative, 0-5 /hpf 11/14/2021 12:42 PM CDT [facility] URINE RBC'S 21-50(A) Negative, 0-2 /hpf 11/14/2021 12:42 PM CDT [facility] EPITHELIAL CELLS Small amount /lpf 2021 12:42 PM CDT [facility] BACTERIA, URINE Packed(A) Negative /hpf 11/14/2021 12:42 PM CDT [facility] Urine URINE SPECIMEN / Unknown Non-Phlebotomy Collection / Unknown 11/14/2021 11:23 AM CDT 11/14/2021 12:07 PM CDT us Luciana Calabrese JOINT CUTTER MACHINE, MATHEMATICAL ENGINEERING TECHNICIAN URINE ORDERABLES Hillary l Result [facility] [address] [place] [address] * (ABNORMAL) CBC with Auto Differential (11/14/2021 10:28 AM CDT) WBC 14.78(H) 4.00 - 12.00 10(3)/[facility] 11/14/2021 10:49 AM CDT [facility] RBC 4.88 3.80 - 5.30 10(6)/[facility] 11/14/2021 10:49 AM CDT [facility] HEMOGLOBIN (HGB) 14.6 12.0 - 15.8 g/dL 11/14/2021 10:49 AM CDT [facility] HEMATOCRIT (HCT) 44.6 36.0 - 47.0 % 11/14/2021 10:49 AM CDT [facility] MCV 91.4 82.0 - 96.0 fL 11/14/2021 10:49 AM CDT [facility] MCH 29.9 26.0 - 34.0 pg 11/14/2021 10:49 AM CDT [facility] MCHC 32.7 31.0 - 36.0 g/dL 11/14/2021 10:49 AM CDT [facility] PLATELET COUNT 521(H) 140 - 440 10(3)/[facility] 11/14/2021 10:49 AM CDT [facility] RDW 12.9 11.8 - 15.5 % 11/14/2021 10:49 AM CDT [facility] MPV 10.0 9.7 - 12.4 fL 11/14/2021 10:49 AM CDT [facility] NEUTROPHILS 80.7(H) 47.0 - 73.0 % 11/14/2021 10:49 AM CDT [facility] LYMPHOCYTES 11.8(L) 18.0 - 42.0 % 11/14/2021 10:49 AM CDT [facility] MONOCYTES 5.8 4.0 - 12.0 % 11/14/2021 10:49 AM CDT [facility] EOSINOPHILS 1.4 0.0 - 5.0 % 11/14/2021 10:49 AM CDT [facility] BASOPHILS 0.3 0.0 - 1.0 % 11/14/2021 10:49 AM CDT [facility] ABSOLUTE NEUTROPHILS 11.95(H) 1.60 - 7.70 10(3)/[facility] 11/14/2021 10:49 AM CDT [facility] ABSOLUTE LYMPHOCYTES 1.74 1.30 - 3.20 10(3)/[facility] 11/14/2021 10:49 AM CDT [facility] ABSOLUTE MONOCYTES 0.85 0.20 - 1.00 10(3)/[facility] 11/14/2021 10:49 AM CDT [facility] ABSOLUTE EOSINOPHIL 0.20 0.00 - 0.40 10(3)/[facility] 11/14/2021 10:49 AM CDT [facility] ABSOLUTE BASOPHILS 0.04 0.00 - 0.10 10(3)/[facility] 11/14/2021 10:49 AM CDT [facility] NRBC PER 100 WBC 0 11/15/19 10:49 AM CDT [facility] Blood Venipuncture / Unknown 11/14/2021 10:28 AM CDT 11/14/2021 10:46 AM CDT us Luciana Calabrese APRN, CNP HEMATOLOGY ORDERABLES Final Result [facility] [address] [place] [address] * Lipase [id number] (11/14/2021 10:28 AM CDT) LIPASE 22.7 13 - 60 U/L 11/14/2021 11:11 AM CDT [facility] Blood Venipuncture / Unknown 11/14/2021 10:28 AM CDT 11/14/2021 10:46 AM CDT us Luciana Calabrese APRN, MATHEMATICAL ENGINEERING TECHNICIAN CHEMISTRY ORDERABLES Final Result [facility] [address] [place] [address] * (ABNORMAL) Comprehensive Metabolic Panel (Cmp) [id number] (11/14/2021 10:28 AM CDT) SODIUM 138 136 - 144 mmol/L 11/14/2021 11:11 AM CDT [facility] POTASSIUM 3.9 3.5 - 5.1 mmol/L 11/14/2021 11:11 AM CDT [facility] CHLORIDE 103 100 - 110 mmol/L 11/14/2021 11:11 AM CDT [facility] CO2, VENOUS 23 22 - 32 mmol/L 11/14/2021 11:11 AM CDT [facility] ANION GAP 15.9 8.0 - 20.0 mmol/L 11/14/2021 11:11 AM CDT [facility] GLUCOSE 115(H) 70 - 99 mg/dL 11/14/2021 11:11 AM CDT [facility] BUN 8 6 - 20 mg/dL 11/14/2021 11:11 AM CDT [facility] CREATININE, BLOOD 0.75 0.40 - 1.00 mg/dL 11/14/2021 11:11 AM CDT [facility] BUN/CREATININE RATIO 11(L) 12 - 20 ratio 11/14/2021 11:11 AM CDT [facility] TOTAL PROTEIN 8.0 6.0 - 8.3 g/dL 11/14/2021 11:11 AM CDT [facility] ALBUMIN 5.0 3.5 - 5.2 g/dL 11/14/2021 11:11 AM CDT [facility] A/G RATIO 1.7 1.0 - 2.0 11/14/2021 11:11 AM CDT [facility] CALCIUM 9.8 8.9 - 10.3 mg/dL 11/14/2021 11:11 AM CDT [facility] T BILI 0.6 <=1.2 mg/dL 11/14/2021 11:11 AM CDT [facility] SGOT (AST) 22 <=32 U/L 11/14/2021 11:11 AM CDT [facility] SGPT (ALT) 25 <=41 U/L 11/14/2021 11:11 AM CDT [facility] ALKALINE PHOSPHATASE 106(H) 45 - 87 U/L 11/14/2021 11:11 AM CDT [facility] GFR, EST. NONAFRICAN 11/14/2021 11:11 AM CDT [facility] Comment:UNABLE TO CALCULATE GFR, EST. 11/14/2021 11:11 AM CDT [facility] Comment:UNABLE TO CALCULATE Blood Venipuncture / Unknown 11/14/2021 10:28 AM CDT 11/14/2021 10:46 AM CDT us Luciana Calabrese APRN, MATHEMATICAL ENGINEERING TECHNICIAN CHEMISTRY ORDERABLES Final Result [facility] [address] [place] [address] documented in this encounter Visit Diagnoses Diagnosis Acute cystitis with hematuria- Primary Acute cystitis documented in this encounter Administered Medications Inactive Administered Medications - up to 3 most recent administrations Medication Order MAR Action Action Date Dose Rate Site 0.9 % sodium chloride solution at 999 mL/hr, Intravenous, ONCE, 1 dose, On 11/14/21 at 1100 New Bag 11/14/2021 10:35 AM CDT 999 mL/hr cefTRIAXone (ROCEPHIN) injection 1 g 1 g, Intravenous, ONCE, 1 dose, On 11/14/21 at 1430, Indications: CystitisIndications:Cystitis Given 11/14/2021 2:03 PM CDT 1 g ketorolac (TORADOL) injection 15 mg 15 mg, Intravenous, ONCE, 1 dose, On 11/14/21 at 1100 Given 11/14/2021 10:36 AM CDT 15 mg ondansetron (ZOFRAN) injection 4 mg 4 mg, Intravenous, ONCE, 1 dose, On 11/14/21 at 1100 Given 11/14/2021 10:36 AM CDT 4 mg documented in this encounter Active and Recently Administered Medications Times are shown in CDT. Scheduled Medication Order 11/12/2021 11/13/2021 11/14/2021 0.9 % sodium chloride solution (COMPLETED) at 999 mL/hr, Intravenous, ONCE, 1 dose, On 11/14/21 at 1100 1035 (New Bag - Prov ider: Shannan Bhardwaj RN)1152 (Stopped - Provider: Shannan Bhardwaj RN) cefTRIAXone (ROCEPHIN) injection 1 g (COMPLETED) 1 g, Intravenous, ONCE, 1 dose, On 11/14/21 at 1430, Indications: Cystitis 1403 (Given - Provid er: Shannan Bhardwaj RN) ketorolac (TORADOL) injection 15 mg (COMPLETED) 15 mg, Intravenous, ONCE, 1 dose, On 11/14/21 at 1100 1036 (Given - Provid er: Shannan Bhardwaj RN) ondansetron (ZOFRAN) injection 4 mg (COMPLETED) 4 mg, Intravenous, ONCE, 1 dose, On 11/14/21 at 1100 1036 (Given - Provid er: Shannan Bhardwaj RN) documented in this encounter Care Teams Curator Of Education Relationship Specialty Start Date End Date Jabari Bynum MD [address] [place], [place] [id number] PCP - General Pediatrics 06/19/18 09/03/22 documented as of this encounter
--- OUTSIDE RECORDS SUMMARY | 2024-08-31 21:55 | XMS_ITS | Encounter Summary ---
Author Organization [facility] Address [address] [place] [address] Phone Care Team Providers Care Helicopter Specialist Name Role Phone Provider, None Primary Care Provider Unavailabl e Reason for Visit * Reason Comments Ankle Injury Encounter Details Date Type Department Care Team (Late st Contact Info) Description 10/25/2023 8:37 PM SPEECH TEACHER - 10/25/2023 9:29 PM SPEECH TEACHER Emergency [facility] [address] [place] [address] Phill Benavides, PAC [address] [place] [address] Left ankle sprain Discharge Disposition: Discharged to home or Selfcare [...] Sex Assigned at Female 10/25/2023 8:55 PM SPEECH TEACHER Legal Sex Female 8:58 PM CDT Gender Identity Female 10/25/2023 8:55 PM SPEECH TEACHER Sexual Orientation Not on file documented as of this encounter Last Filed Vital Signs Vital Sign Reading Time Taken Comments Blood Pressure 112/61 10/25/2023 8:42 PM SPEECH TEACHER Pulse 81 10/25/2023 8:42 PM SPEECH TEACHER Temperature 36.4 ??C (97.6 ??F) 10/25/2023 8:42 PM CS T Respiratory Rate 18 10/25/2023 8:42 PM SPEECH TEACHER Oxygen Saturation 100% 10/25/2023 8:42 PM SPEECH TEACHER Inhaled Oxygen Concentration - - Weight 58.5 kg (129 lb) 10/25/2023 8:42 PM SPEECH TEACHER Height 154.9 cm (5' 1 ) 10/25/2023 8:42 PM SPEECH TEACHER Body Mass Index 24.37 10/25/2023 8:42 PM SPEECH TEACHER documented in this encounter Medications at Time [...] as of this encounter ED Notes * Jordyn Grady RN - 10/25/2023 9:28 PM CST Gerhard wrap applied to pt's left ankle. Patient discharged. Discharge instructions and patient educational material reviewed with patient; questions and concerns addressed; patient verbalizes understanding, using teach back. Patient was given 1 prescriptions. Patient discharged per wheelchair mode with mother as responsible libertarian. CH TEACHER * Phill Benavides, ROBERTO - 10/25/2023 8:49 PM CST Chief Complaint Patient presents with Ankle Injury Rosalba So is a 18 y.o. female who presents to the ED c/o left ankle pain starting last evening after inversion injury. Patient states she missed a step descending her porch steps this evening while letting her dogs out. No other areas of injury. Past Medical History Positives No date: Anxiety No date: Migraines No current facility-administered medications for this encounter. Current Outpatient Medications Medication Sig Dispense Refill Benzocaine-Menthol (CEPACOL EXTRA STRENGTH) 15-2.6 MG Lozenge 1 Lozenge by Mouth/Throat route every4 hours as needed for Other (sore throat). 18 Lozenge 0 hydrOXYzine (VISTARIL) 25 MG Capsule Take 1 Cap by mouth 2 times daily as needed for Itching or Anxiety. 10 Cap 0 metoclopramide (REGLAN) 10 MG Tablet Take 1 Tablet by mouth 4 times daily as needed for Nausea - 1st line. 10 Tablet 0 naproxen (NAPROSYN) 500 MG Tablet Take 1 Tablet by mouth 2 times daily as needed for Moderate or more severe pain. 20 Tablet 0 ondansetron (ZOFRAN) 4 MG Tablet Take 1-2 Tablets by mouth every 8 hours as needed for Nausea - 1stline. 15 Tablet 0 SERTRALINE HCL PO Take 10 mg by mouth daily. topiramate (TOPAMAX) 25 MG Tablet Take 25 mg by mouth daily. Allergies Allergen Reactions Reglan [Metoclopramide] Anxiety Past [...] Never Smokeless tobacco: Never Vaping Use Vaping Use: Never used Substance and Sexual Activity Alcohol use: Never Drug use: Never Sexual activity: Not on file Other Topics Concern Not on file Social History Narrative Not on file Social Determinants of Health Financial Resource Needs: Not on file Food Insecurity Needs: Not on file Transportation Needs: Not on file Physical Activity: Not on file Stress: Not on file Social Integration: Not on file Intimate Partner Violence: Not on file Housing Stability: Not on file BP 112/61 Pulse 81 Temp 97.6 ??F (36.4 ??C) (Tympanic) Resp 18 Ht 5' 1 (1.549 m) Wt 129 lb (58.5 kg) LMP 09/30/2023 (Exact Date) SpO2 100% BMI 24.37 kg/m?? Review of Systems Constitutional: Negative for chills, fatigue and fever. Musculoskeletal: Positive for arthralgias (left ankle), gait problem and joint swelling. Skin: Negative for color change and wound. All other systems reviewed and are negative. Physical Exam Vitals and nursing note reviewed. Constitutional: General: She is not in acute distress. Appearance: She is well-developed. She is not diaphoretic. Cardiovascular: Rate and Rhythm: Normal rate and regular rhythm. Pulses: Dorsalis pedis pulses are 2+ on the right side and 2+ on the left side. Posterior tibial pulses are 2+ on the right side and 2+ on the left side. Heart sounds: Normal heart sounds. No murmur heard. Pulmonary: Effort: Pulmonary effort is normal. No respiratory distress. Breath sounds: Normal breath sounds. No wheezing, rhonchi or rales. Abdominal: General: Bowel sounds are normal. There is no distension. Palpations: Abdomen is soft. Tenderness: There is no abdominal tenderness. Musculoskeletal: General: Tenderness present. Left ankle: Swelling present. Tenderness present over the lateral malleolus and medial malleolus. Decreased range of motion. Neurological: Mental Status: She is alert and oriented to person, place, and time. Psychiatric: Behavior: Behavior normal. XR ANKLE 3 OR MORE VIEWS LEFT Final Result IMPRESSION: No acute osseous abnormality. Procedures No results found for this or any previous visit (from the past 24 hour(s)). Imaging Results XR ANKLE 3 OR MORE VIEWS LEFT (Final result) Result time 10/25/23 21:21:43 Final result by Thee Cartwright DO (10/25/23 21:21:43) Impression: IMPRESSION: No acute osseous abnormality. Narrative: EXAM DESCRIPTION: XR ANKLE 3 OR MORE VIEWS LEFT REASON FOR STUDY: inversion injury. no deformity; complaint of ankle injury. Pt states that she was letting her dog outside and tripped on her step. Pt reports 7/10 pain to her left ankle. TECHNIQUE: 3 radiographic view(s) of the left ankle . COMPARISON: None. FINDINGS: BONES/JOINTS: There is no acute fracture, malalignment or osseous abnormality. The joint spaces are normal. SOFT TISSUES: Within normal limits. THIS IS AN ELECTRONICALLY VERIFIED FINAL REPORT 10/25/2023 9:19 PM - Electronically signed by Thee Cartwright M.D., D.O. Susanna Schultz M.D.O. MW: ADA Report ID: [id number] Reading Location: [id number] Medical Decision Making See HPI. Negative imaging. Supportive care. PCP follow up in 1-2 days. Return to ED for worsening sxs. Amount and/or Complexity of Data Reviewed Radiology: ordered. Clinical Impression 1. Left ankle sprain Disposition: Discharge The patient remained stable throughout their ED [...] the need for follow up. Cosigned by Ed De León MD at 11/22/2023 5:04 AM CDT CH TEACHER CH TEACHER * Jordyn Grady RN - 10/25/2023 8:44 PM CST Pt presents to ED room 11-4 for complaint of ankle injury. Pt states that she was letting her dog outside and tripped on her step. Pt reports 7/10 pain to her left ankle. Pt A&Ox4. VSS. No distress noted. Pt's mother at bedside. Pt and mother updated on plan of care. CH TEACHER documented in this encounter Miscellaneous Notes * PatientPass Patient Instructions - Phill Benavides, PAC - 10/25/2023 9:24 PM CST Images from the original note were not included. Patient Education Table of Contents Ankle Sprain To view videos and all your education online visit, [email or web address] or scan this QR code with your smartphone. Access to this content will in one year. Ankle Sprain An ankle sprain is a stretch or tear in a ligament in your ankle. Ligaments are tissues that connect bones to each other. An ankle sprain can happen when: The ankle rolls outward. This is called an inversion sprain. The ankle rolls inward. This is called an eversion sprain. What are the causes? An ankle sprain is caused by rolling or twisting your ankle. What increases the risk? You are more likely to get an ankle sprain if you play sports. What are the signs or symptoms? Pain in your ankle. Swelling. Bruising. Bruises may form right after you sprain your ankle or 1?2 days later. Trouble standing or walking. How is this treated? An ankle sprain may be treated with: A brace or splint. This is used to keep the ankle from moving until it heals. An elastic bandage (dressing). This is used to support the ankle. Crutches. Pain medicine. Surgery. This may be needed if the sprain is very bad. Physical therapy. This can help you move your ankle better. Follow these instructions at home: If you have a brace or a splint that can be taken off: Wear the brace or splint as told by your doctor. Take it off only as told by your doctor. Check the skin around the brace or splint every day. Tell your doctor if you see problems. Loosen the brace or splint if your toes: ? Tingle. ? Become numb. ? Turn cold and blue. Keep the brace or splint clean and dry. If the brace or splint is not waterproof: ? Do not let it get wet. ? Cover it with a watertight covering when you take a bath or a shower. If you have an elastic dressing: Take it off to shower or bathe. Adjust it if it feels too tight. Loosen the dressing if your foot: ? Tingles. ? Becomes numb. ? Turns cold and blue. Managing pain, stiffness, and swelling If told, put ice on the affected area. ? If you have a removable brace or splint, take it off as told by your doctor. ? Put ice in a plastic bag. ? Place a towel between your skin and the bag. ? Leave the ice on for 20 minutes, 2?3 times a day. If your skin turns bright red, take off the ice right away to prevent skin damage. The risk of damage is higher if you cannot feel pain, heat, or cold. Move your toes often. Raise your ankle above the level of your heart while you are sitting or lying down. General instructions Take [id number] and prescription medicines only as told by your doctor. Do not smoke or use any products that contain nicotine or tobacco. If you need help quitting, ask your doctor. Rest your ankle. Use crutches to support your body weight. Do not use your injured leg to support your body weight until your doctor says that you can. Ask your doctor when it is safe to drive if you have a brace or splint on your ankle. Contact a doctor if: Your bruises or swelling get worse all of a sudden. Your pain does not get better after you take medicine. Get help right away if: Your foot or toes are numb or blue. You have very bad pain that gets worse. This information is not intended to replace advice given to you by your health care provider. Make sure you discuss any questions you have with your health care provider. Document Released: 2009-01-30 Document Updated: 2023-05-17 Document Reviewed: 2023-05-17 Elsevier Patient Education ? 2022 [employer] CH TEACHER documented in this encounter Plan of Treatment Upcoming Encounters Date Type Department Care Team (Late st Contact Info) Description 09/18/2024 1:00 PM SPEECH TEACHER Lab [facility] [address] [place] [address] Citlalli Talbert, PAC [address] [place] [address] Discharge Disposition: Discharged to home or Selfcare 09/25/2024 2:15 PM SPEECH TEACHER Office Visit [facility] [address] [place] [address] Citlalli Talbert, PAC [address] [place] [address] Discharge Disposition: Discharged to home or Selfcare documented as of this encounter Procedures Procedure Name Priority Date/Time Associated Diagnosis Comments XR ANKLE 3 OR MORE VIEWS LEFT STAT 10/25/2023 9:17 PM SPEECH TEACHER documented in this encounter Results * XR ANKLE 3 OR MORE VIEWS LEFT (10/25/2023 9:17 PM SPEECH TEACHER) Anatomical Region Laterality Modality LOWER EXTREMITY, ankle Left Digital R adiography 10/25/2023 9:19 PM SPEECH TEACHER Impressions 10/25/2023 9:21 PM SPEECH TEACHER IMPRESSION: No acute osseous abnormality. Narrative 10/25/2023 9:21 PM SPEECH TEACHER EXAM DESCRIPTION: XR ANKLE 3 OR MORE VIEWS LEFT REASON FOR STUDY: inversion injury. no deformity; ??complaint of ankle injury. Pt states that she was letting her dog outside and tripped on her step. Pt reports 7/10 pain to her left ankle. ?? TECHNIQUE: 3 ??radiographic view(s) of the ??left ankle . COMPARISON: None. FINDINGS: BONES/JOINTS: There is no acute fracture, malalignment or osseous abnormality. The joint spaces are normal. SOFT TISSUES: Within normal limits. ?? THIS IS AN ELECTRONICALLY VERIFIED FINAL REPORT 10/25/2023 9:19 PM - Electronically signed by ??Thee Cartwright M.D., D.O. Thee Cartwright M.D., D.O. MW: ADA D: ??10/25/2023 9:19 PM T: ??10/25/2023 9:19 PM Report ID: [id number] Reading Location: ??[id number] Procedure Note Thee Cartwright, DO - 10/25/2023 EXAM DESCRIPTION: XR ANKLE 3 OR MORE VIEWS LEFT REASON FOR STUDY: inversion injury. no deformity; complaint of ankle injury. Pt states that she was letting her dog outside and tripped on her step. Pt reports 7/10 pain to her left ankle. TECHNIQUE: 3 radiographic view(s) of the left ankle . COMPARISON: None. FINDINGS: BONES/JOINTS: There is no acute fracture, malalignment or osseous abnormality. The joint spaces are normal. SOFT TISSUES: Within normal limits. THIS IS AN ELECTRONICALLY VERIFIED FINAL REPORT 10/25/2023 9:19 PM - Electronically signed by Thee Cartwright M.D., D.O. Thee Cartwright M.D., D.O. MW: ADA Report ID: [id number] Reading Location: [id number] IMPRESSION: No acute osseous abnormality. Phill Benavides PAC IMG DIAGNOSTIC ORDER COLT Final Result documented in this encounter Visit Diagnoses Diagnosis Left ankle sprain- Primary Sprain of ankle, unspecified site documented in this encounter Care Teams Helicopter Specialist Relationship Specialty Start Date End Date Provider, None [place] PCP - General 09/04/22 01/01/24 documented as of this encounter
--- OUTSIDE RECORDS SUMMARY | 2024-08-31 21:55 | XMS_ITS | Encounter Summary ---
Author Organization [facility] [employer] Care Team Providers Care Telecom Billing Analyst Name Role Phone Provider, None Primary Care Provider Unavailabl e Encounter Details Date Type Department Care Team (Latest Contact Info) Description 10/25/2023 Travel Social History Tobacco Use Types Packs/Day [...] Sex Assigned at Female 10/25/2023 8:55 PM INSTRUCTOR [employer]EW[employer] Legal Sex Female 8:58 PM CDT Gender Identity Female 10/25/2023 8:55 PM INSTRUCTOR [employer] Sexual Orientation Not on file documented as of this encounter Plan of Treatment Upcoming Encounters Date Type Department Care Team (Late st Contact Info) Description 09/18/2024 1:00 PM INSTRUCTOR [employer]EW[employer] Lab [facility] [address] [place] [address] Citlalli Talbert, PAC [address] [place] [address] Discharge Disposition: Discharged to home or Selfcare 09/25/2024 2:15 PM INSTRUCTOR [employer] Office Visit [facility] [address] [place] [address] Citlalli Talbert, PAC [address] [place] [address] Discharge Disposition: Discharged to home or Selfcare documented as of this encounter Visit Diagnoses Not on filedocumented in this encounter Care Teams Telecom Billing Analyst Relationship Specialty Start Date End Date Provider, None [place] PCP - General 09/04/22 01/01/24 documented as of this encounter
--- OUTSIDE RECORDS SUMMARY | 2024-08-31 21:55 | XMS_ITS | Encounter Summary ---
Author Organization [facility] Address [address] [place] [address] Phone Care Team Providers Care Corporate Communications Associate Name Role Phone Jabari Bynum MD Primary Care Provider Reason for Visit * Reason Comments Headache Encounter Details Date Type Department Care Team ([facility] st Contact Info) Description 04/22/2021 9:57 AM CDT - 04/22/2021 12:21 PM CDT Emergency [facility] Emergency [address] [place] [address] Phill Benavides, PAC [address] [place] [address] Migraine Discharge Disposition: Discharged to home or Selfcare [...] Sex Assigned at Female 10/25/2023 8:55 PM TICKET WRITER Legal Sex Female 8:58 PM CDT Gender Identity Female 10/25/2023 8:55 PM TICKET WRITER Sexual Orientation Not on file COVID-19 Exposure Response Date Recorded In the last month, have you been in contact with someone who was confirmed or suspected to have Coronavirus / COVID-19? No / Unsure 04/22/2021 9:57 AM CDT documented as of this encounter Last Filed Vital Signs Vital Sign Reading Time Taken Comments Blood Pressure 122/67 04/22/2021 12:20 PM CDT Pulse 79 04/22/2021 12:20 PM CDT Temperature 36.2 ??C (97.2 ??F) 04/22/2021 9:58 AM CD T Respiratory Rate 18 04/22/2021 12:2 0 PM CDT Oxygen Saturation 99% 04/22/2021 12: 20 PM CDT Inhaled Oxygen Concentration - - Weight 85.8 kg (189 lb 2.5 oz) 04/22/2021 9:58 A M CDT Height 156.2 cm (5' 1.5 ) 04/22/2021 9:58 AM CDT Body Mass Index 35.16 04/22/2021 9:58 AM CDT Body Mass Index Percentile 97.61% 04/22/2021 9:5 8 AM CDT Growth Chart: [facility] (Girls, 2- 20 Years) documented in this encounter Discharge Instructions * Attachments The following attachments cannot be sent through Care Everywhere. * Headache, Migraine, Classic (Barbadian) documented in this encounter Medications at Time [...] as of this encounter ED Notes * Luciana Calabrese RN - 04/22/2021 12:20 PM CDT Patient discharged. Discharge instructions and patient educational material reviewed with patient; questions and concerns addressed; patient verbalizes understanding, using teach back. Patient was given 2 prescriptions. Patient discharged per ambulatory mode with mother as responsible constitution party. SL D/C'ed with Ted cath intact. * Luciana Calabrese RN - 04/22/2021 10:41 AM CDT Pt medicated per provider orders. Pt educated on intended effects and side effects of medication and verbalized understanding, able to provide teach back of education. * Phill Benavides PAC - 04/22/2021 10:14 AM CDT Chief Complaint Patient presents with ??? Headache Rosalba So is a 15 y.o. female who presents to the ED c/o global headache consistent with previous migraines with nausea and photophobia reported. REESE present for 3 days. No neuro changes. Patient used to take preventative topamax prescribed by migraine clinic at [facility]. This was very effective for her and she was D/C on this medication after being REESE free for several months. No recenthead injury. Past Medical History Positives No date: [...] risk not applicable to this patient. BP 123/78 Pulse 80 Temp 97.2 ??F (36.2 ??C) (Tympanic) Resp 18 Ht 5' 1.5 (1.562 m) Wt 85.8 kg (189 lb 2.5 oz) LMP 05/25/2019 SpO2 100% BMI 35.16 kg/m?? Review of Systems Constitutional: Negative for chills, fatigue and fever. HENT: Negative for congestion and sore throat. Respiratory: Negative for cough, chest tightness, shortness of breath and wheezing. Cardiovascular: Negative for chest pain and palpitations. Gastrointestinal: Negative for abdominal pain, constipation, diarrhea, nausea and vomiting. Genitourinary: Negative for dysuria, frequency, hematuria and urgency. Musculoskeletal: Negative for arthralgias, back pain and myalgias. Skin: Negative for color change and wound. Neurological: Positive for headaches. Negative for dizziness and light-headedness. All other systems reviewed and are negative. Physical Exam Vitals and nursing note reviewed. Constitutional: General: She is not in acute distress. Appearance: She is well-developed. She is not diaphoretic. HENT: Head: Normocephalic and atraumatic. Eyes: Pupils: Pupils are equal, round, and reactive to light. Neck: Thyroid: No thyromegaly. Cardiovascular: Rate and Rhythm: Normal rate and regular rhythm. Heart sounds: Normal heart sounds. No murmur heard. Pulmonary: Effort: Pulmonary effort is normal. No respiratory distress. Breath sounds: Normal breath sounds. No wheezing, rhonchi or rales. Chest: Chest wall: No tenderness. Abdominal: General: Bowel sounds are normal. There is no distension. Palpations: Abdomen is soft. There is no mass. Tenderness: There is no abdominal tenderness. There is no guarding or rebound. Musculoskeletal: General: No tenderness. Normal range of motion. Cervical back: Normal range of motion and neck supple. Skin: General: Skin is warm and dry. Coloration: Skin is not pale. Findings: No erythema or rash. Neurological: Mental Status: She is alert and oriented to person, place, and time. GCS: GCS eye subscore is 4. GCS verbal subscore is 5. GCS motor subscore is 6. Cranial Nerves: No cranial nerve deficit. Psychiatric: Behavior: Behavior normal. No orders to display Procedures Imaging Results None MDM Coding Clinical Impression 1. Migraine REESE resolved with migraine cocktail. PCP follow up in 2-3 days. Return to ED for worsening sxs. The patient remained stable throughout their ED [...] up. Cosigned by Jamaal Salas MD at 04/22/2021 2:12 PM CDT * Luciana Calabrese RN - 04/22/2021 10:04 AM CDT Patient to ED Room 3 accompanied by mother with complaints of headache. Patient states that she hasa history of migraines. Reports previously taking Topamax as a preventative that worked for her, but her doctor took her off of the medication. Patient reports light sensitivity at this time. * Stephanie Olea RN - 04/22/2021 9:55 AM CDT Patient to triage with mother with c/o migraine. Patient reports taking Topamax in the past with success but was taken off of it as she was not experiencing migraines as frequently. Mother states shehas seen a migraine specialist at [facility]. documented in this encounter Plan of Treatment Upcoming Encounters Date Type Department Care Team (Late st Contact Info) Description 09/18/2024 1:00 PM TICKET WRITER Lab [facility] [address] [place] [address] Citlalli Talbert Kristyn, [address] [place] [address] Discharge Disposition: Discharged to home or Selfcare 09/25/2024 2:15 PM TICKET WRITER Office Visit [facility] [address] [place] [address] TalbertCitlalli regalado Kristyn, PAC [address] [place] [address] Discharge Disposition: Discharged to home or Selfcare documented as of this encounter Procedures Procedure Name Priority Date/Time Associated Diagnosis Comments POCT URINE HCG () STAT 04/22/2021 10:33 AM CDT documented in this encounter Results * POCT Urine HCG () (04/22/2021 10:33 AM CDT) POC URINE Negative POC URINE CONTROL Animal Services Officer Pass Urine 04/22/2021 10:3 3 AM CDT Phill Kingston Kennedy [facility] POINT OF CARE TESTIN Kennedi (MANUAL) Final Result documented in this encounter Visit Diagnoses Diagnosis Migraine- Primary Migraine, unspecified, without mention of intractable migraine without mention of status migrainosus documented in this encounter Administered Medications Inactive Administered Medications - up to 3 most recent administrations Medication Order MAR Action Action Date Dose Rate Site 0.9 % sodium chloride solution at 999 mL/hr, Intravenous, ONCE, 1 dose, On Marilu 04/22/21 at 1030 New Bag 04/22/2021 10:40 AM CDT 999 mL/hr dexamethasone (DECADRON) injection 10 mg 10 mg, Intravenous, ONCE, 1 dose, On Marilu 04/22/21 at 1030 Given 04/22/2021 10:40 AM CDT 10 mg ketorolac (TORADOL) injection 30 mg 30 mg, Intravenous, ONCE, 1 dose, On Marilu 04/22/21 at 1030 Given 04/22/2021 10:40 AM CDT 30 mg magnesium oxide (MAG-OX) tablet 800 mg 800 mg, Oral, ONCE, 1 dose, On Marilu 04/22/21 at 1030 Given 04/22/2021 10:41 AM CDT 800 mg metoclopramide (REGLAN) injection 10 mg 10 mg, Intravenous, ONCE, 1 dose, On Marilu 04/22/21 at 1030 Given 04/22/2021 10:40 AM CDT 10 mg documented in this encounter Active and Recently Administered Medications Times are shown in CDT. Scheduled Medication Order 04/20/2021 04/21/2021 04/22/2021 0.9 % sodium chloride solution (COMPLETED) at 999 mL/hr, Intravenous, ONCE, 1 dose, On Marilu 04/22/21 at 1030 1040 (New Bag - Prov ider: Luciana Calabrese RN)1220 (Stopped - Provider: Luciana Calabrese RN) dexamethasone (DECADRON) injection 10 mg (COMPLETED) 10 mg, Intravenous, ONCE, 1 dose, On Marilu 04/22/21 at 1030 1040 (Given - Provid er: Luciana Calabrese RN) ketorolac (TORADOL) injection 30 mg (COMPLETED) 30 mg, Intravenous, ONCE, 1 dose, On Marilu 04/22/21 at 1030 1040 (Given - Provid er: Luciana Calabrese RN) magnesium oxide (MAG-OX) tablet 800 mg (COMPLETED) 800 mg, Oral, ONCE, 1 dose, On Marilu 04/22/21 at 1030 1041 (Given - Provid er: Luciana Calabrese RN) metoclopramide (REGLAN) injection 10 mg (COMPLETED) 10 mg, Intravenous, ONCE, 1 dose, On Marilu 04/22/21 at 1030 1040 (Given - Provid er: Luciana Calabrese RN) documented in this encounter Care Teams Corporate Communications Associate Relationship Specialty Start Date End Date Jabari Bynum MD [address] [place] [id number] PCP - General Pediatrics 06/19/18 09/03/22 documented as of this encounter
--- OUTSIDE RECORDS SUMMARY | 2024-08-31 21:57 | XMS_ITS | Encounter Summary ---
Author Organization [facility] Healthcare Address [address] [place] [address] Care Team Providers Care Front Office Supervisor Name Role Phone Jabari Bynum MD Primary Care Provider Encounter Details Date Type Department Care Team (Late st Contact Info) Description 04/26/2024 Plan of Care Documentation [facility] Physical Therapy - [place] [address] Social History Tobacco Use Types Packs/Day Years Used Date Smoking Tobacco: Never Smokeless Tobacco: Never Alcohol Use Standard Drinks/Week Comments Never 0 (1 standard drink = 0.6 oz pur e alcohol) AUDIT-C Answer Date Recorded Q1: How often do you have a drink containing alc ohol? Never 07/01/2020 Average Number of Drinks Not on file 020 Frequency of Binge Drinking Not on file 11/2019 Hunger Vital Sign Answer Date Recorded Within the past 12 months, y ou worried that your food would run out before you got the money to buy more. Never true 02/12/20 24 Within the past 12 months, t he food you bought just didn't last and you didn't have money to get more. Never true 02/12/2024 Comments No Sex and Gender Information Value Date Recorded Sex Assigned at Not on file Legal Sex Female 3:14 AM WALL ATTENDANT Gender Identity Not on file Sexual Orientation Not on file documented as of this encounter Plan of Treatment Not on file documented as of this encounter Visit Diagnoses Not on filedocumented in this encounter Care Teams Front Office Supervisor Relationship Specialty Start Date End Date Jabari Bynum MD PCP - General 07/01/20 documented as of this encounter
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
--- OUTSIDE RECORDS SUMMARY | 2024-08-31 21:57 | XMS_ITS | Encounter Summary ---
Author Organization [facility] Healthcare Address [address] [place] [address] Care Team Providers Care Skill Labor Name Role Phone Jabari Bynum MD Primary Care Provider Encounter Details Date Type Department Care Team (Late st Contact Info) Description 04/10/2024 Telephone [facility] [address] [facility] 3rd Floor [address] [place] [address] Beba Lema RN Social History Tobacco Use Types Packs/Day Years [...] on file Legal Sex Female 3:14 AM SPECIAL EFFECTS SPECIALIST Gender Identity Not on file Sexual Orientation Not on file documented as of this encounter Miscellaneous Notes * Telephone Encounter - Beba Lema RN - 04/10/2024 11:52 AM CDT PFPT referral faxed to PT office per pt request, pt aware. documented in this encounter Plan of Treatment Not on file documented as of this encounter Visit Diagnoses Not on filedocumented in this encounter Care Teams Skill Labor Relationship Specialty Start Date End Date Jabari Bynum MD PCP - General 07/01/20 documented as of this encounter
--- OUTSIDE RECORDS SUMMARY | 2024-08-31 21:57 | XMS_ITS | Encounter Summary ---
Author Organization [facility] Healthcare Address [address] [place] [address] Care Team Providers Care Retail Agent Name Role Phone Jabari Bynum MD Primary Care Provider Reason for Visit * Reason Comments PT Treatment * Consultation (Routine) - Authorized Specialty Diagnoses / Procedures Referred By Contac t Referred To Contact Physical Therapy Diagnoses Low back pain, unspecified back pain laterality, unspecified chronicity, unspecified whether sciatica present Radha Martins MD [address] [place] [address] Phone: tel: fax: [address] [address] Referral ID Status Reason Start Date Expiration Date Visits Requested Visits Authorized [id number] Authorized Evaluate and Treat 03/25/2024 04/24/2025 6 17 Encounter Details Date Type Department Care Team (Late st Contact Info) Description 05/28/2024 11:30 AM CDT Therapy [facility] Physical Therapy - [address] [place] [address] Naz Hammond, PT Pelvic and perineal pain (Primary Dx); Low back pain, unspecified back pain laterality, unspecified chronicity, unspecified whether sciatica present Social History Tobacco Use Types Packs/Day Years [...] on file Legal Sex Female 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 Pelvic and perineal pain R10.2 2. Low back pain, unspecified back pain laterality, unspecified chronicity, unspecified whether sciatica present M54.50 Subjective: She realizes she always sleeps on her R side, finding laying on her L side uncomfortable. She walked a lot yesterday and her back pain increased to a 10/10, located to R periscapular region and inferior to scapula. Pain is currently 5/10. She is also having low back pain right now, but thinks that is due to her period due soon. She is going well with graded exposure, now addressing touch through underwear and use of mirror without concern. Objective: Cozean Pelvic Dysfunction Screening Protocol: 04/06 Marinoff Scale: [...] 5/5 Knee Flexion 5/5 5/5 Ankle DF /5 5/5 Ankle PF /5 55 Lower Extremity Flexibility: pain with hip flexion and piriformis stretching bilaterally, no pain with hamstrings or ER/IR Palpation: Tenderness to R lumbar paraspinals, QL and B SIJ Joint Accessory Motion: Special Tests: Long [place] Distraction: no change in symptoms SI Cluster: (-) Treatment Provided: Education re: limbic system and vaginismus cycle of pain Education re: graded exposure -read [employer] to learn about vaginismus/dyspareunia -start with looking at [email or web address] to become familiar with what labia look like -self-exploration utilizing mirror - visual self-assessment, get used to safe touch , learn what does/does not feel good* - become familiar with self* - modified to hand mirror on bed, with underwear on; safe touch over underwear or leggings Prone thoracolumbar paraspinal STM Abdominal STM - most restriction with superior glide and lower abdomen R>L Attempted cupping; tender spots R of navel Adductor MFR - distal 2/3 of muscles Myron pose with diaphragm breathing* Thread the needle* Cat cow* Supine trunk rotation* MHP to low back HEP: [email or web address] Graded Exposure - visual self-assessment and light touch surrounding vulva and labia Access Code: [email or web address] - Supine Lower Trunk Rotation - 1-2 [...] - 7 x weekly - 15-20 reps Access Code: [email or web address] - Child's Pose Stretch - 1 x daily - 7 x weekly - Cat Cow - 1 x daily - 7 x weekly - 3 sets - 10 reps - Supine Lower Trunk Rotation - 1 x daily - 7 x weekly - 3 sets - 10 reps - Child's Pose with Thread the Needle - 1 x daily - 7 x weekly - Supine Double Knee to Chest - 1 x daily - 7 x weekly -QPED adductor with ER stretch -supine hamstring stretch Assessment: Attempted to cup abdomen with minimal effect. Manual STM found sharp spots along R side of navel that decreased with pressure and breathing. Addressed adductor STM, progressing to 2/3rds of muscle. Discussed how to progress graded exposure to visual self-assessment at skin level, naming anatomy andgentle touch. GOALS: LTG 1: Pt will be able [...] Marinoff scale to 1/3 or less. Plan: Abdominal MFR, glute STM. Potentially perform adductor MFR to proximal half. Consider adding therapist graded exposure over leggings. Time in: 1130 Time out: 1220 Naz Hammond PT, DPT, COMT documented in this encounter Plan of Treatment Not on file documented as of this encounter Visit Diagnoses Diagnosis Pelvic and perineal pain- Primary Low back pain, unspecified back pain laterality, unspecified chronicity, unspecified whether sciatica present documented in this encounter Care Teams Retail Agent Relationship Specialty Start Date End Date Jabari Bynum MD PCP - General 07/01/20 documented as of this encounter
--- OUTSIDE RECORDS SUMMARY | 2024-08-31 21:57 | XMS_ITS | Encounter Summary ---
Author Organization [facility] Address [address] [place] [address] Care Team Providers Care Oceanographer Assistant Name Role Phone Jabari Bynum MD Primary Care Provider Reason for Visit * Reason Comments Sinus Problem Sinus congestion, si nus drainage, nausea\vomiting, fever yesterday 101 and body aches, sx's started 2 days ago, otc nyquil, exp to covid last week. 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 Gender Identity Not on file Sexual Orientation Not on file documented as of this encounter Last Filed Vital Signs Vital Sign Reading Time Taken Comments Blood Pressure 124/78 05/21/2024 11:19 AM CDT Pulse 89 05/21/2024 11:19 AM CDT Temperature 36.5 ??C (97.7 ??F) 05/21/2024 11:19 AM C DT Respiratory Rate 16 05/21/2024 11:19 AM CDT Oxygen Saturation 98% 05/21/2024 11:19 AM CDT Inhaled Oxygen Concentration - - Weight 54 kg (119 lb) 05/21/2024 11:19 AM CDT Height 154.9 cm (5' 1 ) 05/21/2024 11:19 AM CDT Body Mass Index 22.48 05/21/2024 11:19 AM CDT documented in this encounter Patient Instructions * Patient Instructions* Tanesha Sood NP - 05/21/2024 11:15 AM CDT Recommendations and Information The main treatment for respiratory infections of any kind is to rest, eat healthy, and drink plentyof fluids. Cold symptoms will likely last anywhere from 7-10 days with symptoms feeling much worse on days 3-5. Antibiotic medications do not cure a cold nor do antibiotic medications help to shortenthe symptoms of viral illness. The following may help you feel better: Over the counter antihistamine such as loratadine (Claritin) or cetirizine (Zyrtec) to reduce secretions. The D formula includes pseudoephedrine and can be helpful as a decongestant but should not be used if you have a history of high blood pressure. Tessalon if prescribed for cough. Albuterol inhaler if prescribed for shortness of breath, cough, or wheezing. Use you albuterol inhaler or nebulizer every 4 hours for the next 48 hours, then every 4-6 hours as needed. Don't smoke and avoid second hand smoke. Suck on cough drops or hard candies to soothe a dry or sore throat. Cough drops won't stop your cough, but they may make your throat feel better. Over the counter loratadine (Claritin) or cetirizine (Zyrtec) to reduce secretions. Mucinex to thin secretions Breathe moist air from a humidifier, a hot shower, or a sink filled with hot water. The heat and moisture can help keep mucus in your airways moist so you can cough it out easily. Use nonprescription medicine, such as acetaminophen, ibuprofen, or aspirin, to relieve fever and body aches. Don't give aspirin to anyone younger than age 20. Rest more than usual. Drink plenty of fluids so that you do not become dehydrated and to keep mucous thin. Use an ssuv-zjm-hixffdn cough medicine such as Delsym or Robitussin. (Cough medicines may not be safe for young children or for people who have certain health problems.) Cough suppressants may help you to stop coughing. Expectorants, such as Mucinex, can help you bring up mucus when you cough. Follow up with primary care physician in 1 week, or sooner if symptoms worsen. If you experience worsening shortness of breath or fever that do not improve with Tylenol/Motrin, go to the Emergency Room. documented in this encounter Progress Notes * Tanesha Sood NP - 05/21/2024 11:15 AM CDT Images from the original note were not included. Subjective/Objective Patient ID: Rosalba So is a 18 y.o. female. Chief Complaint Sinus Problem (Sinus congestion, sinus drainage, nausea\vomiting, fever yesterday 101 and body aches, sx's started 2 days ago, otc nyquil, exp to covid last week.) Patient [facility] for sinus congestion, nasal drainage, cough, nausea, vomiting, body aches, and fever (T-max 102 F) x2 days. She states that she was recently exposed to COVID. She has been taking OTC DayQuil and NyQuil for her symptoms. She has experienced mild shortness of breath at times. She states that she has had discomfort when inhaling. Sinus Problem Review of Systems All systems reviewed and are negative or non contributory for this patient's presentation today other than as stated in the HPI. Physical Exam Vitals reviewed. Constitutional: General: She is not in acute distress. Appearance: Normal appearance. She is well-developed. She is not ill-appearing. HENT: Head: Normocephalic. Right Ear: Tympanic membrane, ear canal and external ear normal. Left Ear: Tympanic membrane, ear canal and external ear normal. Nose: No congestion or rhinorrhea. Right Sinus: No maxillary sinus tenderness or frontal sinus tenderness. Left Sinus: No maxillary sinus tenderness or frontal sinus tenderness. Mouth/Throat: Lips: [place]. Mouth: Mucous membranes are moist. Pharynx: Oropharynx is clear. Eyes: General: Right eye: No discharge. Left eye: No discharge. Conjunctiva/sclera: Conjunctivae normal. Cardiovascular: Rate and Rhythm: Normal rate and regular rhythm. Pulmonary: Effort: Pulmonary effort is normal. No respiratory distress. Breath sounds: Normal breath sounds and air entry. Musculoskeletal: General: Normal range of motion. Cervical back: Neck supple. Lymphadenopathy: Head: Right side of head: No tonsillar adenopathy. Left side of head: No tonsillar adenopathy. Cervical: No cervical adenopathy. Skin: General: Skin is warm and dry. Findings: No rash. Neurological: Mental Status: She is alert and oriented to person, place, and time. Mental status is at baseline. Psychiatric: Attention and Perception: Attention normal. Mood and Affect: Mood normal. Behavior: Behavior normal. Behavior is cooperative. Thought Content: Thought content normal. Judgment: Judgment normal. Vitals: 05/21/24 1119 BP: 124/78 Pulse: 89 Resp: 16 Temp: 36.5 ??C (97.7 ??F) TempSrc: Tympanic SpO2: 98% Weight: 54 kg (119 lb) Height: 154.9 cm (5' 1 ) Assessment/Plan Diagnoses and all orders for this visit: Viral URI (Primary) - POC Influenza A/B, COVID-19 antigen --lungs clear on exam today. SpO2 98% on room air. Low suspicion for pneumonia at this time --COVID and influenza negative --reviewed OTC medications to help with symptoms --return to clinic or follow up with PCP if symptoms persist or worsen Recent Results (from the past 4 hour(s)) POC Influenza A/B, COVID-19 antigen Collection Time: 05/21/24 12:03 PM Result Value Ref Range Influenza A Ag, POC Negative Negative Influenza B Ag, POC Negative Negative COVID-19 Ag POC Presumptive Negative Presumptive Negative, Invalid Patient Education: Disposition Treatment plan including expectations, follow up, and return precautions discussed with patient/parent, verbalizes understanding. Medication dosage, use, and potential adverse reactions discussed with patient/parent. Advised to follow up with PCP if symptoms do not resolve as expected or sooner if condition worsens. Signs/symptoms warranting ER evaluation reviewed. Patient and/or guardian was given an opportunity to ask questions, questions answered. Tanesha Sood NP documented in this encounter Plan of Treatment Not on file documented as of this encounter Procedures Procedure Name Priority Date/Time Associated Diagnosis Comments POC INFLUENZA A/B, COVID-19 ANTIGEN Routine 05/21/2024 12:03 PM CDT Viral URI documented in this encounter Results * POC Influenza A/B, COVID-19 antigen (05/21/2024 12:03 PM CDT) [facility] Influenza A Ag, POC Negative Negative [facility] Influenza B Ag, POC Negative Negative [facility] COVID-19 Ag POC Presumptive Negative Presumptive Negative, Invalid [facility] Nasal 05/21/2024 12:0 3 PM CDT Tanesha Sood NP POINT OF CARE TEST ORDERABLES nal Result [facility] [address] [place] [address], [facility] documented in this encounter Visit Diagnoses Diagnosis Viral URI- Primary Acute upper respiratory infections of unspecified site documented in this encounter Historical Medications * This list may reflect changes made after this encounter. traZODone (DESYREL) 50 mg tablet Take 1 tablet (50 mg total) by mouth nightly 04/25/2024 Incassia 0.35 mg tablet Take 1 tablet (0.35 mg total) by mouth daily 05/03/2024 cyclobenzaprine (FLEXERIL) 10 mg tablet TAKE 1 TABLET BY MOUTH THREE TIMES A DAY NEEDED FOR 14 DAYS 03/12/2024 added in this encounter Additional Health Concerns Infection Onset Date Last Indicated Resolved Time COVID: Suspected 05/21/2024 05/21/2024 05/21/2024 12:05 PM CDT documented as of this encounter Care Teams Oceanographer Assistant Relationship Specialty Start Date End Date Jabari Bynum MD PCP - General 07/01/20 documented as of this encounter
--- OUTSIDE RECORDS SUMMARY | 2024-08-31 21:57 | XMS_ITS | Encounter Summary ---
Author Organization [facility] Address [address] [place] [address] Care Team Providers Care Acct Exec Name Role Phone Jabari Bynum MD Primary Care Provider Reason for Visit * Reason Comments PT Treatment * Consultation (Routine) - Authorized Specialty Diagnoses / Procedures Referred By Contac t Referred To Contact Physical Therapy Diagnoses Low back pain, unspecified back pain laterality, unspecified chronicity, unspecified whether sciatica present Radha Martins MD [address] [place] [id number] Phone: tel: fax: [address] [address] Referral ID Status Reason Start Date Expiration Date Visits Requested Visits Authorized [id number] Authorized Evaluate and Treat 03/25/2024 04/24/2025 6 17 Encounter Details Date Type Department Care Team (Late st Contact Info) Description 08/02/2024 1:00 PM SLOT OPERATIONS DIRECTOR Therapy [facility] Physical Therapy [place] [address] Naz Hammond, PT Pelvic and perineal pain [...] on file Legal Sex Female 3:14 AM SLOT OPERATIONS DIRECTOR Gender Identity Not on file Sexual Orientation Not on file documented as of this encounter Progress Notes * Naz Hammond, PT - 08/02/2024 1:00 PM CST PT Treatment 08/02/2024 Rosalba So 2005 ICD-10-CM 1. Pelvic and perineal pain R10.2 2. Low back pain, unspecified back pain laterality, unspecified chronicity, unspecified whether sciatica present M54.50 Subjective: She is continuing to have pain in her low back and R shoulder blade. The stretches help but when the pain gets too high, she can't move through it. She has been having her boyfriend help stretch which does help. She just got a new job today and starts Monday. She started her period 07/28 and had significant cramps. She went to the ED because of significant pelvic pain, and wasn't able to wear underwear due to pain. She was negative for UTI and yeast infection. She had her blood drawn for bloodwork for and she is negative. She was (+) for strep B but negative for all other STDs. She had significant urinary pressure but no pee would empty. Symptoms are currently but will still feel a little bit of pressure in vulvar region. Peeing before sex has been helping with pressure. Objective: Clair Pelvic Dysfunction Screening Protocol: 04/06 Marinoff Scale: 2-3/3 Noted sitting posture of flexed trunk, crossed legs, and crossed arms. 06/18/24: L iliac upslip Pt did not provide verbal consent to internal pelvic floor assessment 07/04/2024. She does provide consent to external pelvic floor palpation 07/04/24 with maintaining underwear on at this time. Noted report of tenderness with bilateral OI and bilateral bulbocavernosus. Lower abdominal fascial restrictions noted along RLQ, central LQ, and LLQ. The below objective measurements were performed at on 04/11/2024. Lumbar AROM: Pain with flexion, extension and L lateral flexion Lower Extremity Strength: Left Right Hip Flexion 5/5 5/5 Hip Extension 4/5 4/5 Hip Abduction /5 4/5 Hip Adduction /5 4/5 Knee Extension 5/5 5/5 Knee Flexion / 5/5 Ankle DF 5/ 5/5 Ankle PF / 5/5 Lower Extremity Flexibility: pain with hip flexion and piriformis stretching bilaterally, no pain with hamstrings or ER/IR Palpation: Tenderness to R lumbar paraspinals, QL and B SIJ Joint Accessory Motion: Special Tests: [place] Distraction: no change in symptoms SI Cluster: (-) L posteriorly rotated innominate Treatment Provided: Education re: limbic system and vaginismus cycle of pain Education re: graded exposure -read Jiahe to learn about vaginismus/dyspareunia -start with looking at [email or web address], [email or web address] to become familiar with what labia look like -self-exploration utilizing mirror - visual self-assessment, get used to safe touch , learn what does/does not feel good* - become familiar with self* - modified to hand mirror on bed, with without underwear Prone thoracolumbar paraspinal STM* Abdominal STM - most restriction with superior glide and lower abdomen R>L* Attempted cupping; tender spots R of navel* Adductor MFR - proximal 1/3 of muscles Grade 5 distraction to correct L iliac upslip* STM to L piriformis - manual L piriformis stretching* Colon massage* Sidelying gapping* L sidelying R scapular distraction* Graded exposure - therapist palpation to external vulva - gentle sustained pressure Myron pose with diaphragm breathing* Thread the needle Cat cow* Supine trunk rotation MHP to low back* Bowel habits H/O - reviewed open glottis breathing, bowel massage, squatty potty EDU. Re: sustained pressure at tender spots with finger &/or testtube Vaginal icing h/o HEP: [email or web address] Graded Exposure - visual self-assessment and light touch surrounding vulva and labia Access Code: [email or web address] - Supine Lower Trunk Rotation - 1-2 [...] x weekly - 15-20 reps Access Code: [email or web address] - Child's Pose Stretch - 1 x [...] with ER stretch -supine hamstring stretch Assessment: Focused on graded exposure, with gentle palpation and pressure provided to external urogenital triangle. Report of glass pain at R of perineum, along external surface of superficial transverse perineal, as well as bilateral external area of ischiocavernosus, but able to decrease pain with use of d iaphragmatic breathing and sustained pressure. GOALS: LTG 1: Pt will be able to tolerate penetration of therapist's finger with report of pain 2/10 or less. goal to be continued LTG 2: Pt will be able to tolerate light and deep pressure of vulva and labia without c/o pain. goal progressing LTG 3:: Pt will decrease [place] Screen to 4/10 or less. goal progressing LTG 4:: Pt will deny pain with sitting. goal progressing LTG 5:: Marinoff scale to 1/3 or less. goal progressing Plan: Glute STM. Pelvic floor downtraining. Consider potentially layer 1. Time in: 1300 Time out: 1345 Naz Hammond PT, DPT, COMT OPERATIONS DIRECTOR documented in this encounter Plan of Treatment Not on file documented as of this encounter Visit Diagnoses Diagnosis Pelvic and perineal pain- Primary Low back pain, unspecified back pain laterality, unspecified chronicity, unspecified whether sciatica present documented in this encounter Care Teams Acct Exec Relationship Specialty Start Date End Date Jabari Bynum MD PCP - General 07/01/20 documented as of this encounter
--- OUTSIDE RECORDS SUMMARY | 2024-08-31 21:57 | XMS_ITS | Encounter Summary ---
Author Organization [facility] Address [address] [place] [address] Care Team Providers Care Grinder Hardboard Name Role Phone Jabari Bynum MD Primary Care Provider Reason for Visit * Reason Comments Health Maintenance Follow-up Encounter Details Date Type Department Care Team (Late st Contact Info) Description 08/12/2024 9:45 AM EMOTIONAL SUPPORT TEACHER Office [facility] [address] [facility] Health 3rd Floor [address] [place] [id number] Donald Davies NP [address] [address] Healthcare maintenance (Primary Dx) Social History Tobacco Use Types [...] the money to buy more. Never true 08/12/20 24 Within the past 12 months, t he food you bought just didn't last and you didn't have money to get more. 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 Gender Identity Not on file Sexual Orientation Not on file documented as of this encounter Last Filed Vital Signs Vital Sign Reading Time Taken Comments Blood Pressure 132/82 08/12/2024 9:55 AM EMOTIONAL SUPPORT TEACHER Pulse 92 08/12/2024 9:55 AM EMOTIONAL SUPPORT TEACHER Temperature - - Respiratory Rate - - Oxygen Saturation 100% 08/12/2024 9:55 AM EMOTIONAL SUPPORT TEACHER Inhaled Oxygen Concentration - - Weight 58.6 kg (129 lb 3.2 oz) 08/12/2024 9:55 A M EMOTIONAL SUPPORT TEACHER Height - - Body Mass Index 24.41 05/21/2024 11:19 AM CDT documented in this encounter Plan of Treatment Not on file documented as of this encounter Visit Diagnoses Diagnosis Healthcare maintenance- Primary documented in this encounter Discontinued Medications Medication Sig Discontinue Reason Start Date End Da te norelgestromin-ethin.estra dioL (ORTHO EVRA) 150-35 mcg/24 hrIndications: Contraception Apply 1 patch each week for 3 weeks, then remove for 1 week. 02/12/2024 08/12/2024 documented as of this encounter Care Teams Grinder Hardboard Relationship Specialty Start Date End Date Jabari Bynum MD PCP - General 07/01/20 documented as of this encounter
--- OUTSIDE RECORDS SUMMARY | 2024-08-31 21:57 | XMS_ITS | Referral Summary ---
Author Organization [facility] Address [address] [place] [address] Care Team Providers Care Natural Gas Field Processing Supervisor Name Role Phone Jabari Bynum MD Primary Care Provider Encounters Date Type Department Care Team Description 08/12/2024 Documentation [facility] [address] [place] [address] Donald Davies NP 08/12/2024 9:45 AM WAITER/WAITRESS FIRST CLASS Office Visit [facility] [address] Floor [address] [place] [address] Donald Davies NP Healthcare maintenance (Primary Dx) 08/02/2024 1:00 PM WAITER/WAITRESS FIRST CLASS Therapy [facility] Physical [place] [address] Naz Hammond, PT Pelvic and perineal pain (Primary Dx); Low back pain, unspecified back pain laterality, unspecified chronicity, unspecified whether sciatica present 07/16/2024 9:15 AM WAITER/WAITRESS FIRST CLASS Therapy [facility] Physical [place] [address] Naz Hammond, PT Pelvic and perineal pain (Primary Dx); Low back pain, unspecified back pain laterality, unspecified chronicity, unspecified whether sciatica present 07/04/2024 7:30 AM WAITER/WAITRESS FIRST CLASS Therapy [facility] Physical [place] [address] [address] Naz Hammond, PT Pelvic and perineal pain (Primary Dx); Low back pain, unspecified back pain laterality, unspecified chronicity, unspecified whether sciatica present 06/18/2024 7:30 AM CDT Therapy [facility] Physical [place] [address] [place] [address] ManishMariettain, PT Pelvic and perineal pain (Primary Dx); Low back pain, unspecified back pain laterality, unspecified chronicity, unspecified whether sciatica present 06/11/2024 1:45 PM CDT Therapy [facility] [place] [address] [place] [address] Marietta Hammondin, PT Pelvic and perineal pain (Primary Dx); Low back pain, unspecified back pain laterality, unspecified chronicity, unspecified whether sciatica present from Last 3 Months Allergies Active Allergy Reactions Criticality Noted Date Comments Metoclopramide Other (See comments),Nausea & Vomiting Low 02/12/2024 Generalized burning sensation Medications citalopram (CeleXA) 10 mg tablet Take 10 mg by mouth daily 0 Active omeprazole (PriLOSEC) 40 mg capsule Take 1 capsule (40 mg total) by mouth daily 30 capsule 1 Active Additional Information Patient not taking.Reported on 12/27/2021 dicyclomine (BENTYL) 20 mg tablet Take 1 tablet (20 mg total) by mouth 2 (two) times a day 30 tablet 1 Active ondansetron (ZOFRAN) 4 mg tablet Take 1 tablet (4 mg total) by mouth every 8 (eight) hours as needed for nausea or vomiting 20 tablet Active Additional Information Patient not taking.Reported on 08/24/2022 methylPREDNISolone (Medrol, Telly,) 4 mg DosepackIndication s:Acute nasopharyngitis follow package directions 1 packet Active Additional Information Patient not taking.Reported on 08/24/[address] (CYMBALTA) 20 mg capsule Active lamoTRIgine (LaMICtal) 25 mg tablet Take 50 mg by mouth daily Active ondansetron (Zofran) 4 mg tabletIndications: Gastroenteritis Take 1 tablet (4 mg total) by mouth every 8 (eight) hours as needed for nausea or vomiting 20 tablet Active Additional Information Patient not taking.Reported on 08/24/2022 buPROPion XL (WELLBUTRIN XL) 150 mg 24 hr tablet Take 1 tablet (150 mg total) by mouth daily Active ondansetron ODT (ZOFRAN-ODT) 4 mg disintegrating tabletIndications: Nausea and vomiting, unspecified vomiting type Take 1 tablet (4 mg total) by mouth every 8 (eight) hours as needed for nausea or vomiting 20 tablet Active Additional Information Patient not taking.Reported on 05/04/2023 prazosin (MINIPRESS) 2 mg capsule Take 1 capsule (2 mg total) by mouth nightly Active lurasidone (LATUDA) 40 mg tablet 1 tablet (40 mg total) daily Active cyclobenzaprine (FLEXERIL) 10 mg tablet TAKE 1 TABLET BY MOUTH THREE TIMES A DAY NEEDED FOR 14 DAYS Active Incassia 0.35 mg tablet Take 1 tablet (0.35 mg total) by mouth daily Active traZODone (DESYREL) 50 mg tablet Take 1 tablet (50 mg total) by mouth nightly Active norelgestromin-eth in.estradioL (ORTHO EVRA) 150-35 mcg/24 hrIndications:Preg neftaly Contraception Apply 1 patch each week for 3 weeks, then remove for 1 week. 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 Resolved Problems Problem Noted Date Diagnosed Date Resolved Date Heterozygous factor v Leiden complicating , antepartum, second trimester 08/12/2024 08/12/2024 Social History Tobacco Use Types Packs/Day Years [...] on file Legal Sex Female 3:14 AM WAITER/WAITRESS FIRST CLASS Gender Identity Not on file Sexual Orientation Not on file Last Filed Vital Signs Vital Sign Reading Time Taken Comments Blood Pressure 132/82 08/12/2024 9:55 AM WAITER/WAITRESS FIRST CLASS Pulse 92 08/12/2024 9:55 AM WAITER/WAITRESS FIRST CLASS Temperature 36.5 ??C (97.7 ??F) 05/21/2024 11:19 AM C DT Respiratory Rate 16 05/21/2024 11:19 AM CDT Oxygen Saturation 100% 08/12/2024 9:55 AM WAITER/WAITRESS FIRST CLASS Inhaled Oxygen Concentration - - Weight 58.6 kg (129 lb 3.2 oz) 08/12/2024 9:55 A M WAITER/WAITRESS FIRST CLASS Height 154.9 cm (5' 1 ) 05/21/2024 11:19 AM CDT Body Mass Index 24.41 05/21/2024 11:19 AM CDT Plan of Treatment Not on file Insurance [facility] MEDICAID [facility] Care Teams Natural Gas Field Processing Supervisor Relationship Specialty Start Date End Date Jabari Bynum MD PCP - General 07/01/20
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
--- OUTSIDE RECORDS SUMMARY | 2024-08-31 21:57 | XMS_ITS | Encounter Summary ---
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
--- OUTSIDE RECORDS SUMMARY | 2024-08-31 21:57 | XMS_ITS | Encounter Summary ---
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 They said that [facility] may offer services, message patient to see if she can contact them to be seen there. documented in this encounter Plan of Treatment Not on file documented as of this encounter Visit Diagnoses Not on filedocumented in this encounter Care Teams Mortising Machine Operator Relationship Specialty Start Date End Date Jabari Bynum MD PCP - General 07/01/20 documented as of this encounter
--- OUTSIDE RECORDS SUMMARY | 2024-08-31 21:57 | XMS_ITS | Encounter Summary ---
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
--- OUTSIDE RECORDS SUMMARY | 2024-08-31 21:57 | XMS_ITS | Encounter Summary ---
Author Organization [facility] Healthcare Address [address] [place] [address] Care Team Providers Care Biometrics Head Name Role Phone Jabari Bynum MD Primary Care Provider Reason for Visit * Reason Comments PT Initial Eval * Consultation (Routine) - Authorized Specialty Diagnoses / Procedures Referred By Contac t Referred To Contact Physical Therapy Diagnoses Low back pain, unspecified back pain laterality, unspecified chronicity, unspecified whether sciatica present Radha Martins MD [address] [place] [address] Phone: tel: fax: [address] [phone] Referral ID Status Reason Start Date Expiration Date Visits Requested Visits Authorized [id number] Authorized Evaluate and Treat 03/25/2024 04/24/2025 6 17 Encounter Details Date Type Department Care Team (Late st Contact Info) Description 04/11/2024 2:00 PM CDT Therapy [facility] [place] [address] Mindy Lerner, PT Low back pain, unspecified back pain laterality, unspecified chronicity, unspecified whether sciatica present (Primary Dx) Social History Tobacco Use Types [...] Frequency of Binge Drinking Not on file 1111/2019 Hunger Vital Sign Answer Date Recorded Within [...] file 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 female Radha Martins MD [address] [place] [address] ICD-10-CM 1. Low back pain, unspecified back pain laterality, unspecified chronicity, unspecified whether sciatica present M54.50 Ambulatory referral order to Physical Therapy - PT Initial Eval Subjective History of Present Illness: Rosalba presents to PT evaluation with complaints of low back pain. She reports her pain has been ongoing for a few months. She works at [employer] and has to carry a vacuum that is worn like a backpack and reports a lot of pain after her work shifts. She feels this aggravates her pain the most. She reports that she is moving to a new position at work, so she will not be having to clean as much. She complains of pain across her low back, but reports that it can beworse on the R side at times. She states that radicular symptoms are infrequent and if she has, it usually stops at her knee. She reports that she also has a lot of back pain with menstrual cycles and also notes some issues that are better suited for pelvic floor PT. She has been diagnosed with PCOS and endometriosis. She reports some imaging of her back, but reports that they were done outside of the system and she is unsure of the results or what exactly was performed. 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 She works full-time at [employer]. She was previously working out performing mostly cardio and leg workouts, but has not for more than a month due to pain. Patient Goals: Reduce pain. Objective Lumbar AROM: Pain with flexion, extension and [...] SIJ Joint Accessory Motion: Special Tests: Long Ferdinand Distraction: no change in symptoms SI Cluster: (-) Clair Pelvic Dysfunction Screening Protocol: patient marked 04/06, indicating she would be a good candidate for pelvic floor PT Treatment Provided: Access Code: [email or web address] URL: [email or web address] Date: 04/11/2024 Prepared by: Mindy Lerner Exercises - Supine Lower Trunk Rotation - 1-2 [...] - 7 x weekly - 15-20 reps Assessment/Plan Assessment Impairments: pain with function, impaired posture, impaired physical strength, lacks appropriate home exercise program Assessment details: Rosalba is a 18 year-old female with complaints of low back pain. Her back pain has been ongoing for a few months and seems to be exacerbated with some occupational-related activities. 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 She was instructed in core exercises today to begin for HEP and would benefit from skilled PT in order to address core strength, hip strength and pelvic floor dysfunction. Prognosis: good Goals STG 1:: Patient will be independent and compliant with HEP. LTG 1:: Patient will report reduced maximal pain levels to <3/10 in the low back with all activities. Plan Start time: 1359 End time: 1440 Therapy options: will be seen for skilled therapy services Planned therapy interventions: home exercise program, abdominal trunk stabilization, neuromuscular re-education, strengthening, stretching, endurance training, soft tissue mobilization, functional ROM exercises, gait training, manual therapy, flexibility Duration in visits: 6 visits Discussed with: patient Plan details: Patient to be re-assessed by pelvic health PT next visit to incorporate pelvic floor treatment into low back treatment. Mindy Lerner PT, DPT documented in this encounter Plan of Treatment Not on file documented as of this encounter Visit Diagnoses Diagnosis Low back pain, unspecified back pain laterality, unspecified chronicity, unspecified whether sciatica present- Primary documented in this encounter Orders Outpatient Referral Count Last Ordered Date Fir st Ordered Date AMB REFERRAL ORDER TO PHYSICAL THERAPY 1 documented in this encounter Care Teams Biometrics Head Relationship Specialty Start Date End Date Jabari Bynum MD PCP - General 07/01/20 documented as of this encounter
--- OUTSIDE RECORDS SUMMARY | 2024-08-31 21:57 | XMS_ITS | Encounter Summary ---
Author Organization [facility] Healthcare Address [address] [place] [address] Care Team Providers Care Gear Keeper Name Role Phone Jabari Bynum MD Primary Care Provider Reason for Visit * Reason Comments PT Treatment * Consultation (Routine) - Authorized Specialty Diagnoses / Procedures Referred By Contac t Referred To Contact Physical Therapy Diagnoses Low back pain, unspecified back pain laterality, unspecified chronicity, unspecified whether sciatica present Radha Martins MD [address] [place] [address] Phone: tel: fax: [address] [phone] Referral ID Status Reason Start Date Expiration Date Visits Requested Visits Authorized [id number] Authorized Evaluate and Treat 03/25/2024 04/24/2025 6 17 Encounter Details Date Type Department Care Team (Late st Contact Info) Description 07/16/2024 9:15 AM CUPOLA WORKER Therapy [facility] Physical Therapy - [address] [place] [address] Naz Hammond, PT Pelvic and perineal pain [...] on file 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 Pelvic and perineal pain R10.2 2. Low back pain, unspecified back pain laterality, unspecified chronicity, unspecified whether sciatica present M54.50 Subjective: She is having increased stressors at the moment in her life, with a few she states correlating withincreased body tension & waking with allover body pain. Her back has been hurting from her tailbone, up her R side to her R shoulder blade. Laying on her R side or prolonged sitting will worsen it. She did get a new bed and no longer is sharing her bed which is helping some. She has been very nauseous recently, most often in the morning and at night. When she is laying supine, she can feel a monson in her R groin but not her left. States it hurts at the lump but down not radiate. She tried different intercourse positions with improved symptoms when she is able to control depth, speed and m ovement. Objective: [place] Pelvic Dysfunction Screening Protocol: 04/06 [...] SIJ Joint Accessory Motion: Special Tests: Long [place] Distraction: no change in symptoms SI Cluster: (-) L posteriorly rotated innominate Treatment Provided: Education re: limbic system and vaginismus cycle of pain Education re: graded exposure -read [employer] to learn about vaginismus/dyspareunia -start with looking at [email or web address] to become familiar with what labia look like -self-exploration utilizing mirror - visual self-assessment, get used to safe touch , learn what does/does not feel good* - become familiar with self* - modified to hand mirror on bed, with without underwear Prone thoracolumbar paraspinal STM Abdominal STM - most restriction with superior glide and lower abdomen R>L* Attempted cupping; tender spots R of navel* Adductor MFR - proximal 1/3 of muscles Grade 5 distraction to correct L iliac upslip* STM to L piriformis - manual L piriformis stretching* Colon massage* Sidelying gapping L sidelying R scapular distraction Graded exposure - therapist palpation to anterior triangle & OI over underwear Myron pose with diaphragm breathing* Thread the needle Cat cow* Supine trunk rotation MHP to low back* Bowel habits H/O - reviewed open glottis breathing, bowel massage, squatty potty EDU. Re: sustained pressure at tender spots with finger &/or testtube Vaginal icing h/o HEP: [email or web address] Graded Exposure - visual self-assessment and light touch surrounding vulva and labia Access Code: [email or web address] - Supine Lower Trunk Rotation - 1-2 [...] x weekly - 15-20 reps Access Code: [email or web address] - Child's Pose Stretch - 1 x [...] with ER stretch -supine hamstring stretch Assessment: Did not perform graded exposure over vulva today due to pt talking about stressors throughout session - therapist did not want to associate said stressors with graded exposure. Increased tenderness and pain with palpation along periscapular musculature, but eventually able to tolerate scapular distr action and sidelying gapping. Encouraged pt to perform stretches to address R side mobility and to continue with use of testtube for stretch and pain relief. GOALS: LTG 1: Pt will be able [...] Plan: Glute STM. Pelvic floor downtraining. Consider adding therapist graded exposure to external pelvic floor and potentially layer 1. Time in: 917 Time out: 1010 Naz Hammond PT, DPT, COMT LA WORKER documented in this encounter Plan of Treatment Not on file documented as of this encounter Visit Diagnoses Diagnosis Pelvic and perineal pain- Primary Low back pain, unspecified back pain laterality, unspecified chronicity, unspecified whether sciatica present documented in this encounter Care Teams Gear Keeper Relationship Specialty Start Date End Date Jabari Bynum MD PCP - General 07/01/20 documented as of this encounter
--- OUTSIDE RECORDS SUMMARY | 2024-08-31 21:57 | XMS_ITS | Encounter Summary ---
Author Organization [facility] Healthcare Address [address] [place] [address] Care Team Providers Care Coverstitch Binder Name Role Phone Jabari Bynum MD Primary Care Provider Reason for Visit * Reason Comments PT Treatment PT Progress Note * Consultation (Routine) - Authorized Specialty Diagnoses / Procedures Referred By Contac t Referred To Contact Physical Therapy Diagnoses Low back pain, unspecified back pain laterality, unspecified chronicity, unspecified whether sciatica present Radha Martins MD [address] [place] [address] Phone: tel: fax: [address] [phone] Referral ID Status Reason Start Date Expiration Date Visits Requested Visits Authorized [id number] Authorized Evaluate and Treat 03/25/2024 04/24/2025 6 17 Encounter Details Date Type Department Care Team (Late st Contact Info) Description 07/04/2024 7:30 AM 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 Pelvic and perineal pain R10.2 2. Low back pain, unspecified back pain laterality, unspecified chronicity, unspecified whether sciatica present M54.50 Subjective: She is feeling some mid back pain below her shoulder blades R>L, however she is still sharing a bed and has limited motion in her bed. Her spine is really tight and feelsl clau it is pulling. She hasn't been able to perform her graded exposure exercises because her room is being shared. She is still Marinoff Scale 2-3/3. Objective: [facility] Pelvic Dysfunction Screening Protocol: 04/06 Marinoff Scale: [...] SIJ Joint Accessory Motion: Special Tests: Long [place] Distraction: no change in symptoms SI Cluster: (-) L posteriorly rotated innominate Treatment Provided: Education re: limbic system and vaginismus cycle of pain Education re: graded exposure -read [employer] to learn about vaginismus/dyspareunia -start with looking [...] R>L Attempted cupping; tender spots R of navel* Adductor MFR - proximal 1/3 of muscles Grade 5 distraction to correct L iliac upslip* STM to L piriformis - manual L piriformis stretching Colon massage* Graded exposure - therapist palpation to anterior [...] touch surrounding vulva and labia Access Code: [email or web address] - Supine Lower Trunk Rotation - 1-2 [...] x weekly - 15-20 reps Access Code: [email or web address] - Child's Pose Stretch - 1 x [...] with ER stretch -supine hamstring stretch Assessment: Rosalba has been seen for 8 physical therapy visits thus far. Overall she is making good progress toward her goals, with being able to visually assess and palpate her own anatomy without discomfort orpain. She has progressed to tolerating graded exposture of palpation by therapist to external pelvic floor over underwear. She continues to present with upregulated nervous system with tenderness andpain throughout abdomen and adductors. Assisting in regulation of parasymptathetic nervous system allows the body to relax and tensions to decrease. Addressed graded exposure to pelvic floor with palpation of external pelvic floor over underwear today. Good tolerance throughout, with cueing for breathing to assist in relaxation of adductors, which significantly relieved pain. She reports slight tenderness to palpation of bilateral bulbocavernosus and 3/10 to L OI, but increased to 6/10 with R OI. Lower abdominal fascial restrictions released which helped with general body relaxation. SHe will continue to benefit from skilled physical therapy to further address goals. GOALS: LTG 1: Pt will be able [...] floor and potentially layer 1. Time in: 729 Time out: 814 Naz Hammond, PT, DPT, COMT ER SETTER documented in this encounter Plan of Treatment Not on file documented as of this encounter Visit Diagnoses Diagnosis Pelvic and perineal pain- Primary Low back pain, unspecified back pain laterality, unspecified chronicity, unspecified whether sciatica present documented in this encounter Care Teams Coverstitch Binder Relationship Specialty Start Date End Date Jabari Bynum MD PCP - General 07/01/20 documented as of this encounter
--- OUTSIDE RECORDS SUMMARY | 2024-08-31 21:57 | XMS_ITS | Encounter Summary ---
Author Organization [facility] Healthcare Address [address] [place] [address] Care Team Providers Care Foreign Collection Clerk Name Role Phone Jabari Bynum MD Primary Care Provider Reason for Visit * Reason Comments PT Treatment * Consultation (Routine) - Authorized Specialty Diagnoses / Procedures Referred By Contac t Referred To Contact Physical Therapy Diagnoses Low back pain, unspecified back pain laterality, unspecified chronicity, unspecified whether sciatica present Radha Martins MD [address] [place] [address] Phone: tel: fax: [address] [phone] Referral ID Status Reason Start Date Expiration Date Visits Requested Visits Authorized [id number] Authorized Evaluate and Treat 03/25/2024 04/24/2025 6 17 Encounter Details Date Type Department Care Team (Late st Contact Info) Description 05/24/2024 7:00 AM CDT Therapy [facility] Physical Therapy - [place] [address] Naz Hammond, PT Pelvic and perineal pain [...] on file 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 Pelvic and perineal pain R10.2 2. 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 She has been working on her back stretches and starting her desensitization exercises, with good tolerance and low report of triggering nightmares. She is looking to get a hand held mirror to make it easier to perform while laying on her bed vs standing at her long mirror. Currently she is having low back tightness and pain R>L. Objective: Cozean Pelvic Dysfunction Screening Protocol: 04/06 [...] 5/5 Hip Extension 4/5 4/5 Hip Abduction 4/ 4/5 Hip Adduction 4/ 4/5 Knee Extension 5/ 5/5 Knee Flexion / 5/5 Ankle DF 5/5 5/5 Ankle PF 5/5 5/5 Lower Extremity Flexibility: pain with hip flexion and piriformis stretching bilaterally, no pain with hamstrings or ER/IR Palpation: Tenderness to R lumbar paraspinals, QL and B SIJ Joint Accessory Motion: Special Tests: Long [place] Distraction: no change in symptoms SI Cluster: (-) Treatment Provided: Education re: limbic system and vaginismus cycle of pain Education re: graded exposure -read [email or web address] to learn about vaginismus/dyspareunia -start with looking at [email or web address] to become familiar with what labia look like -self-exploration utilizing mirror - visual self-assessment, get used to safe touch , learn what does/does not feel good* - become familiar with self* - modified to hand mirror on bed, with underwear on; safe touch over underwear or leggings Prone thoracolumbar paraspinal STM Abdominal STM - most restriction with superior glide and lower abdomen R>L Adductor MFR - distal half of muscles Myron pose with diaphragm breathing* Thread the needle* Cat cow* Supine trunk rotation* MHP to low back HEP: [email or web address] Graded Exposure - visual self-assessment and light touch surrounding vulva and labia Access Code: [email or web address] - Supine Lower Trunk Rotation - 1-2 [...] x weekly - 15-20 reps Access Code: [email or web address] - Child's Pose Stretch - 1 x [...] with ER stretch -supine hamstring stretch Assessment: Noted increased muscle tension and tenderness along R side of body, including R paraspinals, RLQ ofabdomen, R adductors, and R hamstrings all stiffer and more tender than L sided counterparts. Discussed adding self-massage to adductors at home, using pillow under lateral thighs to allow for LE relaxation while stretching. Progressed adductor and hamstring stretching to HEP. GOALS: LTG 1: Pt will be able [...] perform adductor MFR to proximal half. Consider cupping. Time in: 0700 Time out: 0745 Naz Hammond PT, DPT, COMT documented in this encounter Plan of Treatment Not on file documented as of this encounter Visit Diagnoses Diagnosis Pelvic and perineal pain- Primary Low back pain, unspecified back pain laterality, unspecified chronicity, unspecified whether sciatica present documented in this encounter Care Teams Foreign Collection Clerk Relationship Specialty Start Date End Date Jabari Bynum MD PCP - General 07/01/20 documented as of this encounter
--- OUTSIDE RECORDS SUMMARY | 2024-08-31 21:57 | XMS_ITS | Encounter Summary ---
Author Organization [facility] Healthcare Address [address] [place] [address] Care Team Providers Care Tissue Recovery Technician Name Role Phone Jabari Bynum MD Primary Care Provider Reason for Visit * Reason Comments PT Treatment * Consultation (Routine) - Authorized Specialty Diagnoses / Procedures Referred By Contac t Referred To Contact Physical Therapy Diagnoses Low back pain, unspecified back pain laterality, unspecified chronicity, unspecified whether sciatica present Radha Martins MD [address] [place] [address] Phone: tel: fax: [address] [phone] Referral ID Status Reason Start Date Expiration Date Visits Requested Visits Authorized [id number] Authorized Evaluate and Treat 03/25/2024 04/24/2025 6 17 Encounter Details Date Type Department Care Team (Late st Contact Info) Description 06/18/2024 7:30 AM CDT Therapy [facility] Physical Therapy - [address] [place] [address] Naz Hammond, PT Pelvic and perineal pain [...] on file 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 Pelvic and perineal pain R10.2 2. Low back pain, unspecified back pain laterality, unspecified chronicity, unspecified whether sciatica present M54.50 Subjective: Her bilateral glutes are sore today. She went out of town last week and was able to tolerate [address] before back started bothering her. She fell onto a ping pong table, hitting her pubic bone and has been really sore. She was intimate over the weekend and it started okay but then became painful (described as stabbing) and had to stop, with pain lasting a couple days and causing pain with voiding. Pt has been really constipated with last BM 1 week ago with use of stool softeners. Objective: Cozean Pelvic Dysfunction Screening Protocol: 04/06 [...] SIJ Joint Accessory Motion: Special Tests: Long [place] Distraction: no change in symptoms SI Cluster: (-) L posteriorly rotated innominate Treatment Provided: Education re: limbic system and vaginismus cycle of pain Education re: graded exposure -read [employer] to learn about vaginismus/dyspareunia -start with looking [...] Grade 5 distraction to correct L iliac upslip STM to L piriformis - manual L piriformis stretching Colon massage Graded exposure - therapist palpation to anterior triangle & OI over leggings Myron pose with diaphragm breathing* Thread the needle Cat cow* Supine trunk rotation MHP to low back* Bowel habits H/O - reviewed open glottis breathing, bowel massage, squatty potty EDU. Re: sustained pressure at tender spots with finger &/or testtube Vaginal icing h/o HEP: [email or web address] Graded Exposure - visual self-assessment and light touch surrounding vulva and labia Access Code: [email or web address] - Supine Lower Trunk Rotation - 1-2 [...] x weekly - 15-20 reps Access Code: [email or web address] - Child's Pose Stretch - 1 x [...] with ER stretch -supine hamstring stretch Assessment: Corrected L iliac upslip with report of decreased pain quickly. Significant tension and tenderness with gentle palpation to L hip external rotators. Manual hip flexion and piriformis stretching helped to calm down. Added and educated pt on colon massage to assist with constipation, providing torso vascularization stretches and reviewing use of squatty potty, open glottis breathing, and gastrocolic reflex to help with movements. Performed pelvic floor palpation externally over sweats today with pain noted at bilateral ischiocavernosus and bilateral OI, reaching upwards of 8/10. Released pressure to no greater than 4/10 with cueing to breathe during palpation. Educated pt to use frozen water b ottle or ice pack if pain continues to persist. GOALS: LTG 1: Pt will be able [...] Marinoff scale to 1/3 or less. Plan: Glute STM. Pelvic floor downtraining. Consider adding therapist graded exposure over underwear. Time in: 729 Time out: 829 Naz Hammond PT, DPT, COMT documented in this encounter Plan of Treatment Not on file documented as of this encounter Visit Diagnoses Diagnosis Pelvic and perineal pain- Primary Low back pain, unspecified back pain laterality, unspecified chronicity, unspecified whether sciatica present documented in this encounter Care Teams Tissue Recovery Technician Relationship Specialty Start Date End Date Jabari Bnyum MD PCP - General 07/01/20 documented as of this encounter
--- OUTSIDE RECORDS SUMMARY | 2024-08-31 21:57 | XMS_ITS | Encounter Summary ---
Author Organization [facility] Healthcare Address [address] [place] [address] Care Team Providers Care Vulcanizer Rubber Plate Name Role Phone Jabari Bynum MD Primary Care Provider Reason for Visit * Reason Comments PT Treatment * Consultation (Routine) - Authorized Specialty Diagnoses / Procedures Referred By Contac t Referred To Contact Physical Therapy Diagnoses Low back pain, unspecified back pain laterality, unspecified chronicity, unspecified whether sciatica present Radha Martins MD [address] [place] [address] Phone: tel: fax: [address] [phone] Referral ID Status Reason Start Date Expiration Date Visits Requested Visits Authorized [id number] Authorized Evaluate and Treat 03/25/2024 04/24/2025 6 17 Encounter Details Date Type Department Care Team (Late st Contact Info) Description 05/08/2024 3:45 PM CDT Therapy [facility] Physical Therapy - [address] [place] [address] Naz Hammond, PT Pelvic and perineal pain [...] on file 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 Pelvic and perineal pain R10.2 2. Low back pain, unspecified back pain laterality, unspecified chronicity, unspecified whether sciatica present M54.50 Subjective: Pt has been looking at the websites provided and found them very informative. She did a visual assessment of herself but this triggered a nightmare and she has not returned to this exercise yet. She ended up getting her period last week and has not returned to this exercise due to that as well. In the past week, she has had increased stress and has noticed that she has had increased low back pain. Objective: Cozean Pelvic Dysfunction Screening Protocol: 04/06 [...] 4/5 Hip Adduction 4/5 4/5 Knee Extension 5/ 5/5 Knee Flexion 5/ 5/5 Ankle DF 5/5 5/5 Ankle PF 5/5 5/5 Lower Extremity Flexibility: pain with hip flexion and piriformis stretching bilaterally, no pain with hamstrings or ER/IR Palpation: Tenderness to R lumbar paraspinals, QL and B SIJ Joint Accessory Motion: Special Tests: Long [place] Distraction: no change in symptoms SI Cluster: (-) Treatment Provided: Education re: limbic system and vaginismus cycle of pain Education re: graded exposure -read [employer] to learn about vaginismus/dyspareunia -start with looking at [email or web address] to become familiar with what labia look like -self-exploration utilizing mirror - visual self-assessment, get used to safe touch , learn what does/does not feel good* - become familiar with self* - modified to hand mirror on bed, with underwear on; safe touch over underwear or leggings Prone thoracolumbar paraspinal STM Myron pose with diaphragm breathing Thread the needle Cat cow Supine trunk rotation HEP: [email or web address] Graded Exposure - visual self-assessment and light touch surrounding vulva and labia Access Code: [email or web address] - Supine Lower Trunk Rotation - 1-2 [...] x weekly - 15-20 reps Access Code: [email or web address] - Child's Pose Stretch - 1 x [...] 1 x daily - 7 x weekly Assessment: Due to significant response from graded exposure, this was modified to a different., more comfortable space in her home with wearing underwear. Discussed performing safe touch over leggings or underwear to still get used to touch without having the visual trigger. Addressed lumbar flexibility anddiscussed stacking ribs over hips when wearing vacuum backpack at work to decrease lumbar pain withwork duties, as well as taking breaks as needed. GOALS: LTG 1: Pt will be able [...] scale to 1/3 or less. Plan: Abdominal myofascial assessment, glute STM, adductor stm? Continue lumbar STM. Time in: 1545 Time out: 1633 Naz Hammond PT, DPT, COMT documented in this encounter Plan of Treatment Not on file documented as of this encounter Visit Diagnoses Diagnosis Pelvic and perineal pain- Primary Low back pain, unspecified back pain laterality, unspecified chronicity, unspecified whether sciatica present documented in this encounter Care Teams Vulcanizer Rubber Plate Relationship Specialty Start Date End Date Jabari Bynum MD PCP - General 07/01/20 documented as of this encounter
--- OUTSIDE RECORDS SUMMARY | 2024-08-31 21:57 | XMS_ITS | Encounter Summary ---
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 Fax #: [phone] Does message need to be routed? Yes-Action Needed documented in this encounter Plan of Treatment Not on file documented as of this encounter Visit Diagnoses Not on filedocumented in this encounter Care Teams Podiatrist Assistant Relationship Specialty Start Date End Date Jabari Bynum MD PCP - General 07/01/20 documented as of this encounter
--- OUTSIDE RECORDS SUMMARY | 2024-08-31 21:57 | XMS_ITS | Encounter Summary ---
Author Organization [facility] Healthcare Address [address] [place] [address] Care Team Providers Care Footwear Stitcher Name Role Phone Jabari Bynum MD Primary Care Provider Reason for Visit * Reason Comments PT Treatment * Consultation (Routine) - Authorized Specialty Diagnoses / Procedures Referred By Contac t Referred To Contact Physical Therapy Diagnoses Low back pain, unspecified back pain laterality, unspecified chronicity, unspecified whether sciatica present Radha Martins MD [address] [place] [address] Phone: tel: fax: [address] [phone] Referral ID Status Reason Start Date Expiration Date Visits Requested Visits Authorized [id number] Authorized Evaluate and Treat 03/25/2024 04/24/2025 6 17 Encounter Details Date Type Department Care Team (Late st Contact Info) Description 06/11/2024 1:45 PM CDT Therapy [facility] Physical Therapy - [address] [place] [address] Naz Hammond, PT Pelvic and perineal pain [...] on file 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 Pelvic and perineal pain R10.2 2. Low back pain, unspecified back pain laterality, unspecified chronicity, unspecified whether sciatica present M54.50 Subjective: She finds her low back really hurts when she is sitting in her car for >30 minutes. She will also feel it if she is sitting in her bed leaning against her wall. Pain will get up to 7-8/10 and movement will ease it. SHe has to walk it out to allow it calm down. She has been doing well her her graded exposure HEP, now able to look at her vulva in the mirror and touch without discomfort. Objective: Cozean Pelvic Dysfunction Screening Protocol: 04/06 [...] 4/5 Hip Abduction 4/ 4/5 Hip Adduction 4/5 4/5 Knee Extension 5/ 5/5 Knee Flexion 5/ 5/5 Ankle DF 5/5 5/5 Ankle PF 5/5 5/5 Lower Extremity Flexibility: pain with hip flexion and piriformis stretching bilaterally, no pain with hamstrings or ER/IR Palpation: Tenderness to R lumbar paraspinals, QL and B SIJ Joint Accessory Motion: Special Tests: Long [place] Distraction: no change in symptoms SI Cluster: (-) L posteriorly rotated innominate Treatment Provided: Education re: limbic system and vaginismus cycle of pain Education re: graded exposure -read [employer] to learn about vaginismus/dyspareunia -start with looking [...] R>L* Attempted cupping; tender spots R of navel Adductor MFR - proximal 1/3 of muscles Graded exposure - therapist palpation to anterior triangle over leggings Myron pose with diaphragm breathing* Thread the needle* Cat cow* Supine trunk rotation* MHP to low back EDU. Re: sustained pressure at tender spots with finger &/or testtube Vaginal icing h/o HEP: [email or web address] Graded Exposure - visual self-assessment and light touch surrounding vulva and labia Access Code: [email or web address] - Supine Lower Trunk Rotation - 1-2 [...] x weekly - 15-20 reps Access Code: [email or web address] - Child's Pose Stretch - 1 x [...] with ER stretch -supine hamstring stretch Assessment: Able to perform STM to proximal 1/3 of adductors today. Tender with pain shooting toward vagina butsustained pressure with breathing helped to release. Addressed posteriorly rotated innominate L with a pop and relief in posterior SIJ. Able to perofrm graded exposure with therapist palpation of anterior triangle with sustained pressure during tender points at bilateral bulbocavernosus. Able to discuss use of test tube to help with touch other than own, as well as provided handouts on vaginal icing and intercourse positions that may be less painful. GOALS: LTG 1: Pt will be able [...] therapist graded exposure over leggings. Time in: 1345 Time out: 1445 Naz Hammond PT, DPT, COMT documented in this encounter Plan of Treatment Not on file documented as of this encounter Visit Diagnoses Diagnosis Pelvic and perineal pain- Primary Low back pain, unspecified back pain laterality, unspecified chronicity, unspecified whether sciatica present documented in this encounter Care Teams Footwear Stitcher Relationship Specialty Start Date End Date Jabari Bynum MD PCP - General 07/01/20 documented as of this encounter
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
--- OUTSIDE RECORDS SUMMARY | 2024-08-31 21:58 | XMS_ITS | Encounter Summary ---
Author Organization [facility] Address [address] [facility] [address] [place] [address] Care Team Providers Care Electronics Engineering Professor Name Role Phone Jabari Bynum MD Primary Care Provider Reason for Visit * Reason Comments COVID-19 EVALUATION Sx onset yesterday. Negative home COVID test yesterday. C/o loss of taste and smell, congestion, headache, sweating, sore throat, body aches, SOB.+ COVID exp; not vaccinated. OTC: Tylenol, cold and flu medication, nasal spray. 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 Gender Identity Not on file Sexual Orientation Not on file documented as of this encounter Last Filed Vital Signs Vital Sign Reading Time Taken Comments Blood Pressure 128/78 04/05/2022 2:53 PM CDT Pulse 84 04/05/2022 2:53 PM CDT Temperature 36.7 ??C (98 ??F) 04/05/2022 2:53 PM CDT Respiratory Rate 18 04/05/2022 2:53 PM CDT Oxygen Saturation 99% 04/05/2022 2:53 PM CDT Inhaled Oxygen Concentration - - Weight 67.6 kg (149 lb) 04/05/2022 2:53 PM CDT Height 156.2 cm (5' 1.5 ) 04/05/2022 2:53 PM CDT Body Mass Index 27.7 04/05/2022 2:53 PM CDT Body Mass Index Percentile 90.25% 04/05/2022 2:5 3 PM CDT Growth Chart: [facility] (Girls, 2- 20 Years) documented in this encounter Patient Instructions * Patient Instructions* Heather Mota NP - 04/05/2022 3:00 PM CDT Lungs CTA, low suspicion for pneumonia at this time. Will recommend supportive care for symptoms with f/u precautions including signs/symptoms warranting ER evaluation. Discussed home self-care, follow up needs, and signs and symptoms that warrant immediate medical attention/ER evaluation including worsening fever, increased shortness of breath, severe N/V/D, or anyother worrisome symptoms Reviewed isolation/quarantine protocols Discussed symptomatic relief of symptoms Advised to rest and increase oral fluid intake The rapid strep exam performed at the [facility] today was negative. The following is recommended treatment for pharyngitis (sore throat). Take Tylenol or Motrin for fever/pain Gargle with warm salt water (1tsp salt/1 cup water) or warm tea with honey and lemon to soothe pain Suck on ice chips, popsicles, cough drops, or throat lozenges You may return to work, daycare, or school 24 hours after you are fever free without use of Tylenolor Motrin. Do not share food, drinks, or utensils. If signs/symptoms do not improve or worsen, follow up with your PCP. documented in this encounter Progress Notes * Heather Mota NP - 04/05/2022 3:00 PM CDT Images from the original note were not included. Subjective/Objective Patient ID: Rosalba So is a 16 y.o. female. Chief Complaint COVID-19 EVALUATION (Sx onset yesterday. Negative home COVID test yesterday. C/o loss of taste and smell, congestion, headache, sweating, sore throat, body aches, SOB.+ COVID exp; not vaccinated. OTC: Tylenol, cold and flu medication, nasal spray. ) Patient presents to the convenient care clinic with a one day history of loss of taste and smell, congestion, headache, sweating, sore throat, body aches and shortness of breath. She has a positive COVID exposure. She has taken Tylenol, cold and flu medication and nasal spray with minimal relief. Review of Systems Constitutional: Positive for diaphoresis and fatigue. Negative for activity change, appetite changeand fever. HENT: Positive for postnasal drip, rhinorrhea and sore throat. Negative for congestion, ear discharge, ear pain and sinus pressure. Eyes: Negative for discharge. Respiratory: Positive for shortness of breath. Negative for cough. Gastrointestinal: Negative for diarrhea, nausea and vomiting. Musculoskeletal: Positive for myalgias. Skin: Negative for rash. Neurological: Positive for headaches. Hematological: Negative for adenopathy. Physical Exam Vitals reviewed. Constitutional: General: She is not in acute distress. Appearance: Normal appearance. She is well-developed. She is not ill-appearing or toxic-appearing. HENT: Head: Normocephalic. Right Ear: Tympanic membrane, ear canal and external ear normal. Left Ear: Tympanic membrane, ear canal and external ear normal. Nose: Congestion and rhinorrhea present. Right Sinus: No maxillary sinus tenderness or frontal sinus tenderness. Left Sinus: No maxillary sinus tenderness or frontal sinus tenderness. Mouth/Throat: Lips: [place]. Mouth: Mucous membranes are moist. Pharynx: Oropharyngeal exudate and posterior oropharyngeal erythema present. Eyes: General: Right eye: No discharge. Left eye: No discharge. Conjunctiva/sclera: Conjunctivae normal. Cardiovascular: Rate and Rhythm: Normal rate and regular rhythm. Heart sounds: Normal heart sounds. Pulmonary: Effort: Pulmonary effort is normal. No respiratory distress. Breath sounds: Normal breath sounds and air entry. No wheezing. Abdominal: Tenderness: There is no abdominal tenderness. Musculoskeletal: General: Normal range of motion. Cervical [...] Thought content normal. Judgment: Judgment normal. Vitals: 04/05/22 1453 BP: 128/78 BP Location: Right arm Patient Position: Sitting Pulse: 84 Resp: 18 Temp: 36.7 ??C (98 ??F) TempSrc: Oral SpO2: 99% Weight: 67.6 kg (149 lb) Height: 156.2 cm (5' 1.5 ) Assessment/Plan Diagnoses and all orders for this visit: Suspected COVID-19 virus infection - COVID-19 POC - POCT rapid strep A - COVID-19 Coronavirus RNA Nasopharyngeal; Future Recent Results (from the past 4 hour(s)) COVID-19 POC Collection Time: 04/05/22 3:17 PM Result Value Ref Range COVID-19 Ag POC (BD Veritor) Presumptive Negative Presumptive Negative, Invalid POCT rapid strep A Collection Time: 04/05/22 3:33 PM Result Value Ref Range Rapid Strep A, POC Negative Patient Instructions Lungs CTA, low suspicion for pneumonia at this time. Will recommend supportive care for symptoms with f/u precautions including signs/symptoms warranting ER evaluation. ?? Discussed home self-care, follow up needs, and signs and symptoms that warrant immediate medicalattention/ER evaluation including worsening fever, increased shortness of breath, severe N/V/D, or any other worrisome symptoms ?? Reviewed isolation/quarantine protocols ?? Discussed symptomatic relief of symptoms ?? Advised to rest and increase oral fluid intake The rapid strep exam performed at the [facility] was negative. The following is recommended treatment for pharyngitis (sore throat). ??? Take Tylenol or Motrin for fever/pain ??? Gargle with warm salt water (1tsp salt/1 cup water) or warm tea with honey and lemon to soothe pain ??? Suck on ice chips, popsicles, cough drops, or throat lozenges ??? You may return to work, daycare, or school 24 hours after you are fever free without use of Tylenol or Motrin. ??? Do not share food, drinks, or utensils. If signs/symptoms do not improve or worsen, follow up with your PCP. Disposition ??? Treatment plan including expectations, follow up, and return precautions discussed with patient/parent, verbalizes understanding. ??? Medication dosage, use, and potential adverse reactions discussed with patient/parent. ??? Advised to follow up with PCP if symptoms do not resolve as expected or sooner if condition worsens. ??? Signs/symptoms warranting ER evaluation reviewed. ??? Patient and/or guardian was given an opportunity to ask questions, questions answered. Heather Mota NP documented in this encounter Plan of Treatment Not on file documented as of this encounter Procedures Procedure Name Priority Date/Time Associated Diagnosis Comments POCT RAPID STREP Routine 04/05/2022 3:33 PM CDT Suspected COVID-19 virus infection COVID-19 POC Routine 04/05/2022 3:17 PM CDT Suspected COVID-19 virus infection documented in this encounter Results * POCT rapid strep A (04/05/2022 3:33 PM CDT) Rapid Strep A, POC Negative Swab 04/05/2022 3:33 PM CDT Heather Mota NP POINT OF CARE TEST ORDERABLES Fi nal Result * COVID-19 Coronavirus RNA Nasopharyngeal (04/05/2022 3:22 PM CDT) COVID-19 RNA Not Detected SUPRIYA CANALES Comment: Interpretive Data Synonyms for this test include: PCR and NAAT . ??Testing performed by the [facility]. The 2019-Novel Coronavirus Assay (COVID-19) Real Time RT-PCR assay is for in vitro diagnostic use under FDA emergency use authorization only. A negative RT-PCR result does not preclude infection with COVID-19 and should not be used as the sole basis for treatment or other patient management decisions. ??Additional sample types have been validated according to CLIA regulations. ?? Current Interpretive Data was last revised on October 01, 2020. Testing performed by: [facility], [address] [place]., [address] Nasopharyngeal 04/05/2022 3: 22 PM CDT 04/06/2022 12:18 AM CDT Narrative SUPRIYA - 04/06/2022 5:14 AM CDT Is the patient experiencing any symptoms consistent with COVID (eg. Fever, cough, shortness of breath)?->Yes What is the reason for testing?->Symptoms of COVID-19 in low-risk group (Batched) Date of Symptom Onset->04/04/22 us Heather Mota NP LAB MICROBIOLOGY - GENERAL ORDER CLOT Final Result Performing Organization Address City/[facility]/ZIP Co de Phone Number SUPRIYA [id number] Department of Laboratories [place], [place] [id number] * COVID-19 POC (04/05/2022 3:17 PM CDT) COVID-19 Ag POC (BD Veritor) Presumptive Negative Presumptive Negative, Invalid [facility] [place] Nasal 04/05/2022 3:17 PM CDT Heather Mota NP POINT OF CARE TEST ORDERABLES Fi nal Result [facility] [address] [place] [address] documented in this encounter Visit Diagnoses Diagnosis Suspected COVID-19 virus infection Suspected COVID-19 virus infection documented in this encounter Additional Health Concerns Infection Onset Date Last Indicated Resolved Time COVID: Suspected 04/05/2022 04/05/2022 04/05/2022 3:19 PM CDT COVID: Suspected 04/05/2022 04/05/2022 04/06/2022 3:05 AM CDT documented as of this encounter Care Teams Electronics Engineering Professor Relationship Specialty Start Date End Date Jabari Bynum MD PCP - General 07/01/20 documented as of this encounter
--- OUTSIDE RECORDS SUMMARY | 2024-08-31 21:58 | XMS_ITS | Encounter Summary ---
Author Organization [facility] Address [address] [place] [address] Phone Care Team Providers Care Cnc Lathe Programmer Name Role Phone Jabari Bynum MD Primary Care Provider Reason for Visit * Reason Onset Date Comments Prep instructions 07/09/2021 Encounter Details Date Type Department Care Team (Late st Contact Info) Description 07/09/2021 Telephone [facility] Pediatric Gastroenterology [facility] 2nd [place] [address] [place] [id number] Mare Caceres MD [address] [place] [address] [address] [place] [address] Prep instructions Social History Tobacco Use Types Packs/Day Years [...] on file Legal Sex Female 3:14 AM SOFTWARE TEST SPECIALIST Gender Identity Not on file Sexual Orientation Not on file documented as of this encounter Miscellaneous Notes * Telephone Encounter - Ede Gonzalez MA - 07/09/2021 10:11 AM SOFTWARE TEST SPECIALIST Images from the original note were not included. Spoke with parent and informed them that they should follow the instructions for the standard extended prep that we provided to them. This will include having their child should drink at least 8 ounces of liquid every 2 hours in addition to drinking the 2 capfuls of MiraLax with 12 ounces of any clear liquid every 2 hours (9:00 am, 11:00 am, 1:00 pm, 3:00 pm, 5:00 pm, 7:00 pm and 9:00 pm) starting the morning before the procedure. I explained that the additional fluid will help the MiraLax work. We discussed that it is important to remember that if your child feels nauseous, it is ok to give them a break in an effort to prevent vomiting. The main reason we would ask you to call us back is ifyour child has not pooped the day before the procedure by 3pm. It is very important that we are notified by this time so we can make certain modifications to ensure a good cleanout. The other reason we would ask you to call the office after hours is if your child's poop has not started to turn intoa aviation survival technician colored liquidy diarrhea by 8pm the night before the procedure. Any questions between the hours of 8am and 430pm call the GI nurse at [phone] opt 4 Any questions after 430pm, call the Pediatric GI Fellow terminal operations manager at [phone] Please drink at least 8 ounces of clear liquid after 11:30 pm the night before procedure every timeyou go to the bathroom once the prep is done (this will keep you from dehydrating). You will need to drink an additional 16 ounces of colorless clear liquids (7-up, water, sprite, white grape juice) on the morning of procedure (2 hours) before arriving for your appointment. Directed parent to the QR link for the colonoscopy prep What to expect video and encouraged them to watch this with their child the day they begin the prep. [email or web address] WARE TEST SPECIALIST documented in this encounter Plan of Treatment Not on file documented as of this encounter Visit Diagnoses Not on filedocumented in this encounter Care Teams Cnc Lathe Programmer Relationship Specialty Start Date End Date Jabari Bynum MD PCP - General 07/01/20 documented as of this encounter
--- OUTSIDE RECORDS SUMMARY | 2024-08-31 21:58 | XMS_ITS | Encounter Summary ---
Author Organization [facility] Address [address] [place] [address] Phone Care Team Providers Care Polymerization Helper Name Role Phone Jabari Bynum MD Primary Care Provider Encounter Details Date Type Department Care Team (Late st Contact Info) Description 07/21/2021 Telephone [facility] Pediatric Gastroenterology [facility] 2nd [place] [address] [place] [id number] Mare Caceres MD [address] [place] [address] [address] [place], [place] [id number] Social History Tobacco Use Types Packs/Day Years [...] file Legal Sex Female 3:14 AM SENIOR RADIATION PROTECTION TECHNICIAN Gender Identity Not on file Sexual Orientation Not on file documented as of this encounter Miscellaneous Notes * Telephone Encounter - Jacey Flannery RN - 07/21/2021 10:55 AM SENIOR RADIATION PROTECTION TECHNICIAN Left detailed message on only listed number. Call if questions. Will get PNP visit set up. PEDIATRIC GASTROENTEROLOGY, HEPATOLOGY AND NUTRITION PATHOLOGY REPORT Procedure Type: Upper Endoscopy and Colonoscopy ?? BIOPSY INTERPRETATION: A. ??Small intestine, duodenum, biopsy ? - No histopathologic abnormality B. ??Stomach, antrum, biopsy ? - No histopathologic abnormality C. ??Esophagus, distal, biopsy ? - No histopathologic abnormality D. ??Small intestine, terminal ileum, biopsy ? - No histopathologic abnormality E. ??Large intestine, right, biopsy ? - No histopathologic abnormality F. ??Large intestine, left, biopsy ? - No histopathologic abnormality - No ulcer identified G. ??Large intestine, rectosigmoid, biopsy ? - Focal acute inflammation of lamina propria with no evidence of cryptitis or crypt abscess DIAGNOSES: Functional GI disorder - Likely IBS ?? PLAN: ? Family or patient notified by: change over: Continue current Omeprazole 40 mg Po daily Zofran 4 mg Po TID PRN nausea/vomiting Dicyclomine 20 mg Po 3-4 times a day PRN abdominal pain OTC peppermint oil tablets and/or cinda ?? We will also discuss psychology/CBT and low FODMAP diet Additional testing: None Referrals: Likely Psychology ?? Next GI office appointment: 6 weeks with PNP OR RADIATION PROTECTION TECHNICIAN documented in this encounter Plan of Treatment Not on file documented as of this encounter Visit Diagnoses Not on filedocumented in this encounter Care Teams Polymerization Helper Relationship Specialty Start Date End Date Jabari Bynum MD PCP - General 07/01/20 documented as of this encounter
--- OUTSIDE RECORDS SUMMARY | 2024-08-31 21:58 | XMS_ITS | Encounter Summary ---
Author Organization [facility] Address [address] [place] [address] Care Team Providers Care Pumper Brewery Name Role Phone Jabari Bynum MD Primary Care Provider Encounter Details Date Type Department Care Team (Late st Contact Info) Description 07/30/2021 10:10 AM [facility] [address] [address] Close exposure to COVID-19 virus; Sore throat Social History Tobacco Use Types Packs/Day Years [...] on file Legal Sex Female 3:14 AM PEARL GLUE DRIER Gender Identity Not on file Sexual Orientation Not on file documented as of this encounter Miscellaneous Notes * Result Encounter Note - Otoniel Barajas MA - 07/31/2021 5:02 PM PEARL GLUE DRIER Patient mother (on patients HIPAA) is aware of negative throat culture results and has no further questions at this time. L GLUE DRIER documented in this encounter Plan of Treatment Not on file documented as of this encounter Procedures Procedure Name Priority Date/Time Associated Diagnosis Comments THROAT CULTURE Routine 07/29/2021 3:30 PM PEAR[facility] GLUE DRIER Close exposure to COVID-19 virus Sore throat documented in this encounter Results * Throat culture Throat Pharyngeal (07/29/2021 3:30 PM PEARL GLUE DRIER) Report Final Report: No growth of pathogens. SUPRIYA CANALES Comment:Testing performed by : [facility], [address] [place]., [address] Throat (Pharyngeal) 07/29/2021 3:30 PM PEARL GLUE DRIER 07/30/2021 1:11 PM [facility] GLUE DRIER Narrative SUPRIYA CANALES - 07/31/2021 10:40 AM PEARL GLUE DRIER Testing performed by [facility] ([phone]). Kailee Moreno [facility] MICROBIOLOGY - GENERAL OR DERABLES Final Result SUPRIYA [id number] [address] Department [place] [address] documented in this encounter Visit Diagnoses Diagnosis Close exposure to COVID-19 virus Sore throat Acute pharyngitis documented in this encounter Care Teams Pumper Brewery Relationship Specialty Start Date End Date Jabari Bynum MD PCP - General 07/01/20 documented as of this encounter
--- OUTSIDE RECORDS SUMMARY | 2024-08-31 21:58 | XMS_ITS | Encounter Summary ---
Author Organization [facility] Medical [facility] Address [address] [facility] [address] [place] [id number] Care Team Providers Care Local Hazmat Driver Name Role Phone Jabari Bynum MD Primary Care Provider Reason for Visit * Reason Comments COVID-19 EVALUATION Sx onset Sunday 09/03, c/o intermittent headaches, cough, sob, nasal congestion. Pt states she had confirmed covid 08/2020, not vaccinated. No known covid exposures. Encounter Details Date Type Department Care Team (Late st Contact Info) Description 09/05/2021 11:30 AM WINDOWS CONSULTANT Office Visit [facility] [address] [place] [address] Rosa Mcnair, [place] [address] [place] [address] Acute nasopharyngitis (Primary Dx); Close exposure to COVID-19 virus Social History Tobacco Use Types Packs/Day Years [...] on file Legal Sex Female 3:14 AM WINDOWS CONSULTANT Gender Identity Not on file Sexual Orientation Not on file documented as of this encounter Last Filed Vital Signs Vital Sign Reading Time Taken Comments Blood Pressure 124/76 09/05/2021 11:25 AM WINDOWS CONSULTANT Pulse 68 09/05/2021 11:25 AM WINDOWS CONSULTANT Temperature 36.7 ??C (98.1 ??F) 09/05/2021 11:[address] Respiratory Rate 20 09/05/2021 11:25 AM WINDOWS CONSULTANT Oxygen Saturation 99% 09/05/2021 11:25 AM WINDOWS CONSULTANT Inhaled Oxygen Concentration - - Weight 79.8 kg (176 lb) 09/05/2021 11:25 AM WINDOWS CONSULTANT Height 154.9 cm (5' 1 ) 09/05/2021 11:25 AM WINDOWS CONSULTANT Body Mass Index 33.25 09/05/2021 11:25 AM WINDOWS CONSULTANT Body Mass Index Percentile 96.54% 09/05/2021 11: 25 AM WINDOWS CONSULTANT Growth Chart: [facility]ED [facility] (Girls, 2- 20 Years) documented in this encounter Patient Instructions * Patient Instructions* Rosa Mcnair, [place] - 09/05/2021 11:30 AM WINDOWS CONSULTANT Images from the original note were not included. ?? Please start an jnso-czn-iqcaukt antihistamine such as Claritin, Zyrtec or Inga. If congestion occurs, you may ask your pharmacist for Claritin-D, Zyrtec-D or Inga-D ?? Please monitor for signs of dehydration including decreased urine output, excessive fatigue, uncontrollable vomiting or diarrhea ?? Should fever occur, please use Tylenol for fever-director of speech pathology ?? Please follow up with your primary care provider should symptoms persist Patient Education Upper Respiratory Infection in Children CAR INSPECTOR: An upper respiratory infection is also called a common cold. It can affect your child's nose, throat, ears, and sinuses. Most children get about 5 to 8 colds each year. Common signs and symptoms include the following: Your child's cold symptoms will be worst for the first 3 to 5 days. Your child may have any of the following: ?? Runny or stuffy nose ?? Sneezing and coughing ?? Sore throat or hoarseness ?? Red, watery, and sore eyes ?? Tiredness or fussiness ?? Chills and a fever that usually lasts 1 to 3 days ?? Headache, body aches, or sore muscles Seek care immediately if: ?? Your child's temperature reaches 105??F (40.6??C). ?? Your child has trouble breathing or is breathing faster than usual. ?? Your child's lips or nails turn blue. ?? Your child's nostrils flare when he or she takes a breath. ?? The skin above or below your child's ribs is sucked in with each breath. ?? Your child's heart is beating much faster than usual. ?? You see pinpoint or larger reddish-purple dots on your child's skin. ?? Your child stops urinating or urinates less than usual. ?? Your baby's soft spot on his or her head is bulging outward or sunken inward. ?? Your child has a severe headache or stiff neck. ?? Your child has chest or stomach pain. ?? Your baby is too weak to eat. Contact your child's healthcare provider if: ?? Your child has a rectal, ear, or forehead temperature higher than 100.4??F (38??C). ?? Your child has an oral or pacifier temperature higher than 100??F (37.8??C). ?? Your child has an armpit temperature higher than 99??F (37.2??C). ?? Your child is younger than 2 years and has a fever for more than 24 hours. ?? Your child is 2 years or older and has a fever for more than 72 hours. ?? Your child has had thick nasal drainage for more than 2 days. ?? Your child has ear pain. ?? Your child has white spots on his or her tonsils. ?? Your child coughs up a lot of thick, yellow, or green mucus. ?? Your child is unable to eat, has nausea, or is vomiting. ?? Your child has increased tiredness and weakness. ?? Your child's symptoms do not improve or get worse within 3 days. ?? You have questions or concerns about your child's condition or care. Treatment for your child's cold: There is no cure for the common cold. Colds are caused by viruses and do not get better with antibiotics. Most colds in children go away without treatment in 1 to 2 weeks. Do not give skkv-voj-wxmzybs (OTC) cough or cold medicines to children younger than 4 years. Your child's healthcare provider may tell you not to give these medicines to children younger than 6 years. OTC cough and cold medicines can cause side effects that may harm your child. Your child may need any of the following to help manage his or her symptoms: ?? Decongestants help reduce nasal congestion in older children and help make breathing easier. If your child takes decongestant pills, they may make him or her feel restless or cause problems with sleep. Do not give your child decongestant sprays for more than a few days. ?? Cough suppressants help reduce coughing in older children. Ask your child's healthcare provider which type of cough medicine is best for him or her. ?? Acetaminophen decreases pain and fever. It is available without a doctor's order. Ask how much to give your child and how often to give it. Follow directions. Read the labels of all other medicines your child uses to see if they also contain acetaminophen, or ask your child's doctor or pharmacist. Acetaminophen can cause liver damage if not taken correctly. ?? NSAIDs , such as ibuprofen, help decrease swelling, pain, and fever. This medicine is available with or without a doctor's order. NSAIDs can cause stomach bleeding or kidney problems in certain people. If your child takes blood thinner medicine, always ask if NSAIDs are safe for him. Always readthe medicine label and follow directions. Do not give these medicines to children under 6 months of age without direction from your child's healthcare provider. ?? Do not give aspirin to children [...] with you in case of an emergency. Care for your child: ?? Have your child rest. Rest will help his or her body get better. ?? Give your child more liquids as directed. Liquids will help thin and loosen mucus so your child can cough it up. Liquids will also help prevent dehydration. Liquids that help prevent dehydration include water, fruit juice, and broth. Do not give your child liquids that contain caffeine. Caffeinecan increase your child's risk for dehydration. Ask your child's healthcare provider how much liquid to give your child each day. ?? Clear mucus from your child's nose. Use a bulb syringe to remove mucus from a baby's nose. Squeeze the bulb and put the tip into one of your baby's nostrils. Gently close the other nostril with your finger. Slowly release the bulb to suck up the mucus. Empty the bulb syringe onto a tissue. Repeat the steps if needed. Do the same thing in the other nostril. Make sure your baby's nose is clear be fore he or she feeds or sleeps. Your child's healthcare provider may recommend you put saline dropsinto your baby's nose if the mucus is very thick. ?? Soothe your child's throat. If your child is 8 years or older, have him or her gargle with salt water. Make salt water by dissolving ?? teaspoon salt in 1 cup warm water. ?? Soothe your child's cough. You can give honey to children older than 1 year. Give ?? teaspoon ofhoney to children 1 to 5 years. Give 1 teaspoon of honey to children 6 to 11 years. Give 2 teaspoons of honey to children 12 or older. ?? Use a cool-mist humidifier. This will add moisture to the air and help your child breathe easier. Make sure the humidifier is out of your child's reach. ?? Apply petroleum-based jelly around the outside of your child's nostrils. This can decrease irritation from blowing his or her nose. ?? Keep your child away from smoke. Do not smoke near your child. Do not let your older child smoke. Nicotine and other chemicals in cigarettes and cigars can make your child's symptoms worse. They can also cause infections such as bronchitis or pneumonia. Ask your child's healthcare provider for information if you or your child currently smoke and need help to quit. E-cigarettes or smokeless tobacco still contain nicotine. Talk to your healthcare provider before you or your child use these products. Prevent the spread of a cold: ?? Keep your child away from other people during the first 3 to 5 days of his or her cold. The virus is spread most easily during this time. ?? Wash your hands and your child's hands often. Teach your child to cover his or her nose and mouth when he or she sneezes, coughs, and blows his or her nose. Show your child how to cough and sneezeinto the crook of the elbow instead of the hands. ?? Do not let your child share toys, pacifiers, or towels with others while he or she is sick. ?? Do not let your child share foods, eating utensils, cups, or drinks with others while he or she is sick. Follow up with your child's healthcare provider as directed: Write down your questions so you remember to ask them during your child's visits. ?? 2017 [employer] Information is for End User's use only and may not be sold, redistributed or otherwise used for commercial purposes. All illustrations and images included in CareNotes?? are the copyrighted property of [employer]. or [employer]. The above information is an scientific aide only. It is not intended as medical advice for individual conditions or treatments. Talk to your doctor, nurse or pharmacist before following any medical regimen to see if it is safe and effective for you. OWS CONSULTANT OWS CONSULTANT documented in this encounter Ordered Prescriptions Prescription Sig Dispense Quantity Refills Last Filled Start Date End Date methylPREDNISolone (Medrol, Telly,) 4 mg DosepackIndications: Acute nasopharyngitis follow package directions 1 packet 09/05/2021 documented in this encounter Progress Notes * Rosa Mcnair NP - 09/05/2021 11:30 AM CST Images from the original note were not included. Subjective/Objective Patient: Rosalba So is a 16 y.o. female followed by Jabari Bynum MD Chief Complaint Patient presents with ??? COVID-19 EVALUATION Sx onset Sunday 09/03, c/o intermittent headaches, cough, sob, nasal congestion. Pt states she had confirmed covid 08/2020, not vaccinated. No known covid exposures. Rosalba So presents to clinic with c/o headache, cough, shortness of breath, congestion x 2 days. States she was sent home from school 3 days ago 2/2 symptoms. Pertinent history: GERD, migraine. Reports known/confirmed exposure to COVID-19. Denies COVID inoculation. Endorses having previous history of COVID diagnosis. August 2020. Patient has attempted chloreseptic and nasal spray for symptom alleviation prior to arrival to clinic. Denies the following: GI symptoms: nausea, vomiting, diarrhea, abdominal pain Respiratory symptoms: chest discomfort, rhinorrhea, sore throat Generalized symptoms of infection: fever, excessive fatigue, generalized malaise, ear ache Review of Systems Constitutional: Negative for chills and fever. HENT: Positive for congestion. Negative for ear pain, rhinorrhea, sinus pressure, sinus pain, sneezing and sore throat. Eyes: Negative. Respiratory: Positive for cough and shortness of breath. Negative for chest tightness and wheezing. Cardiovascular: Negative for chest pain. Gastrointestinal: Negative for constipation, diarrhea, nausea and vomiting. Endocrine: Negative. Genitourinary: Negative. Musculoskeletal: Negative for arthralgias and myalgias. Skin: Negative. Allergic/Immunologic: Negative for environmental allergies. Neurological: Positive for headaches. Hematological: Negative for adenopathy. Psychiatric/Behavioral: Negative. Physical Exam Vitals and nursing note reviewed. Constitutional: Appearance: Normal appearance. HENT: Head: Normocephalic and atraumatic. Right Ear: Tympanic membrane, ear canal and external ear normal. Left Ear: Tympanic membrane, ear canal and external ear normal. Nose: Congestion and rhinorrhea present. Mouth/Throat: Mouth: Mucous membranes are moist. Cardiovascular: Rate and Rhythm: Normal rate and regular rhythm. Heart sounds: Normal heart sounds. Pulmonary: Effort: Pulmonary effort is normal. Breath sounds: Normal breath sounds and air entry. Comments: Congested cough noted Musculoskeletal: General: Normal range of motion. Cervical back: Neck supple. Skin: General: Skin is warm and dry. Neurological: General: No focal deficit present. Mental Status: She is alert and oriented to person, place, and time. Psychiatric: Mood and Affect: Mood normal. Behavior: Behavior normal. Vitals: 09/05/21 1125 BP: 124/76 BP Location: Right arm Patient Position: Sitting Pulse: 68 Resp: 20 Temp: 36.7 ??C (98.1 ??F) TempSrc: Oral SpO2: 99% Weight: 79.8 kg (176 lb) Height: 154.9 cm (5' 1 ) Social History Tobacco Use Smoking Status Never Smoker Smokeless Tobacco Never Used Assessment/Plan Diagnoses and all orders for this visit: Acute nasopharyngitis (Primary) - POC Influenza A/B, COVID-19 antigen Close exposure to COVID-19 virus Orders Placed This Encounter Procedures ??? POC Influenza A/B, COVID-19 antigen Order Specific Question: Is the Patient experiencing symptoms consistent with COVID? Answer: Yes Order Specific Question: Date of Symptom Onset Answer: 09/03/2021 Order Specific Question: Is the patient hospitalized? [...] orders placed or performed in visit on 09/05/21 POC Influenza A/B, COVID-19 antigen Result Value Ref Range Inflenza A Ag, POC Negative Influenza B Ag, POC Negative COVID-19 Ag POC Presumptive Negative Presumptive Negative, Invalid # acute nasopharyngitis --start prednisone --recommended salt water gargles --encouraged COVID vaccine --antihistamine wwo decongestant pending symptoms and pt history --tylenol/motrin for pain/fever --diet as tolerated --ED presentation with one or more of the following symptoms: fever uncontrolled with antipyretics,shortness of breath, chest discomfort, uncontrolled n/v/d --f/u with PCP if symptoms persist Patient Instructions: ?? Please start an frbm-ayi-bgaurlb antihistamine such as Claritin, Zyrtec or Inga. If congestion occurs, you may ask your pharmacist for Claritin-D, Zyrtec-D or Inga-D ?? Please monitor for signs of dehydration including decreased urine output, excessive fatigue, uncontrollable vomiting or diarrhea ?? Should fever occur, please use Tylenol for fever-director of speech pathology ?? Please follow up with your primary care provider should symptoms persist Patient Education Upper Respiratory Infection in Children CAR INSPECTOR: An upper respiratory infection is also called a common cold. It can affect your child's nose, throat, ears, and sinuses. Most children get about 5 to 8 colds each year. Common signs and symptoms include the following: Your child's cold symptoms will be worst for the first 3 to 5 days. Your child may have any of the following: ?? Runny or stuffy nose ?? Sneezing and coughing ?? Sore throat or hoarseness ?? Red, watery, and sore eyes ?? Tiredness or fussiness ?? Chills and a fever that usually lasts 1 to 3 days ?? Headache, body aches, or sore muscles Seek care immediately if: ?? Your child's temperature reaches 105??F (40.6??C). ?? Your child has trouble breathing or is breathing faster than usual. ?? Your child's lips or nails turn blue. ?? Your child's nostrils flare when he or she takes a breath. ?? The skin above or below your child's ribs is sucked in with each breath. ?? Your child's heart is beating much faster than usual. ?? You see pinpoint or larger reddish-purple dots on your child's skin. ?? Your child stops urinating or urinates less than usual. ?? Your baby's soft spot on his or her head is bulging outward or sunken inward. ?? Your child has a severe headache or stiff neck. ?? Your child has chest or stomach pain. ?? Your baby is too weak to eat. Contact your child's healthcare provider if: ?? Your child has a rectal, ear, or forehead temperature higher than 100.4??F (38??C). ?? Your child has an oral or pacifier temperature higher than 100??F (37.8??C). ?? Your child has an armpit temperature higher than 99??F (37.2??C). ?? Your child is younger than 2 years and has a fever for more than 24 hours. ?? Your child is 2 years or older and has a fever for more than 72 hours. ?? Your child has had thick nasal drainage for more than 2 days. ?? Your child has ear pain. ?? Your child has white spots on his or her tonsils. ?? Your child coughs up a lot of thick, yellow, or green mucus. ?? Your child is unable to eat, has nausea, or is vomiting. ?? Your child has increased tiredness and weakness. ?? Your child's symptoms do not improve or get worse within 3 days. ?? You have questions or concerns about your child's condition or care. Treatment for your child's cold: There is no cure for the common cold. Colds are caused by viruses and do not get better with antibiotics. Most colds in children go away without treatment in 1 to 2 weeks. Do not give nrka-xbx-fpvbkpl (OTC) cough or cold medicines to children younger than 4 years. Your child's healthcare provider may tell you not to give these medicines to children younger than 6 years. OTC cough and cold medicines can cause side effects that may harm your child. Your child may need any of the following to help manage his or her symptoms: ?? Decongestants help reduce nasal congestion in older children and help make breathing easier. If your child takes decongestant pills, they may make him or her feel restless or cause problems with sleep. Do not give your child decongestant sprays for more than a few days. ?? Cough suppressants help reduce coughing in older children. Ask your child's healthcare provider which type of cough medicine is best for him or her. ?? Acetaminophen decreases pain and fever. It is available without a doctor's order. Ask how much to give your child and how often to give it. Follow directions. Read the labels of all other medicines your child uses to see if they also contain acetaminophen, or ask your child's doctor or pharmacist. Acetaminophen can cause liver damage if not taken correctly. ?? NSAIDs , such as ibuprofen, help decrease swelling, pain, and fever. This medicine is available with or without a doctor's order. NSAIDs can cause stomach bleeding or kidney problems in certain people. If your child takes blood thinner medicine, always ask if NSAIDs are safe for him. Always readthe medicine label and follow directions. Do not give these medicines to children under 6 months of age without direction from your child's healthcare provider. ?? Do not give aspirin to children [...] with you in case of an emergency. Care for your child: ?? Have your child rest. Rest will help his or her body get better. ?? Give your child more liquids as directed. Liquids will help thin and loosen mucus so your child can cough it up. Liquids will also help prevent dehydration. Liquids that help prevent dehydration include water, fruit juice, and broth. Do not give your child liquids that contain caffeine. Caffeinecan increase your child's risk for dehydration. Ask your child's healthcare provider how much liquid to give your child each day. ?? Clear mucus from your child's nose. Use a bulb syringe to remove mucus from a baby's nose. Squeeze the bulb and put the tip into one of your baby's nostrils. Gently close the other nostril with your finger. Slowly release the bulb to suck up the mucus. Empty the bulb syringe onto a tissue. Repeat the steps if needed. Do the same thing in the other nostril. Make sure your baby's nose is clear be fore he or she feeds or sleeps. Your child's healthcare provider may recommend you put saline dropsinto your baby's nose if the mucus is very thick. ?? Soothe your child's throat. If your child is 8 years or older, have him or her gargle with salt water. Make salt water by dissolving ?? teaspoon salt in 1 cup warm water. ?? Soothe your child's cough. You can give honey to children older than 1 year. Give ?? teaspoon ofhoney to children 1 to 5 years. Give 1 teaspoon of honey to children 6 to 11 years. Give 2 teaspoons of honey to children 12 or older. ?? Use a cool-mist humidifier. This will add moisture to the air and help your child breathe easier. Make sure the humidifier is out of your child's reach. ?? Apply petroleum-based jelly around the outside of your child's nostrils. This can decrease irritation from blowing his or her nose. ?? Keep your child away from smoke. Do not smoke near your child. Do not let your older child smoke. Nicotine and other chemicals in cigarettes and cigars can make your child's symptoms worse. They can also cause infections such as bronchitis or pneumonia. Ask your child's healthcare provider for information if you or your child currently smoke and need help to quit. E-cigarettes or smokeless tobacco still contain nicotine. Talk to your healthcare provider before you or your child use these products. Prevent the spread of a cold: ?? Keep your child away from other people during the first 3 to 5 days of his or her cold. The virus is spread most easily during this time. ?? Wash your hands and your child's hands often. Teach your child to cover his or her nose and mouth when he or she sneezes, coughs, and blows his or her nose. Show your child how to cough and sneezeinto the crook of the elbow instead of the hands. ?? Do not let your child share toys, pacifiers, or towels with others while he or she is sick. ?? Do not let your child share foods, eating utensils, cups, or drinks with others while he or she is sick. Follow up with your child's healthcare provider as directed: Write down your questions so you remember to ask them during your child's visits. ?? 2017 [employer] Information is for End User's use only and may not be sold, redistributed or otherwise used for commercial purposes. All illustrations and images included in CareNotes?? are the copyrighted property of [employer] or [employer]. The above information is an scientific aide only. It is not intended as medical [...] an opportunity to ask questions, questions answered. ??? Patient was wearing the following PPE: mask. ??? Provider wearing the following PPE: mask, gown, gloves, face shield. Rosa Mcnair NP OWS CONSULTANT documented in this encounter Plan of Treatment Not on file documented as of this encounter Procedures Procedure Name Priority Date/Time Associated Diagnosis Comments POC INFLUENZA A/B, COVID-19 ANTIGEN Routine 09/05/2021 11:49 AM WINDOWS CONSULTANT Acute nasopharyngitis documented in this encounter Results * POC Influenza A/B, COVID-19 antigen (09/05/2021 11:49 AM WINDOWS CONSULTANT) [facility] Influenza A Ag, POC Negative [facility] Influenza B Ag, POC Negative [facility] [place] COVID-19 Ag POC Presumptive Negative Presumptive Negative, Invalid [facility] [place] Nasal 09/05/2021 11:4 9 AM WINDOWS CONSULTANT us Rosa Mcnair NP POINT OF CARE TEST ORDERABL ES Final Result [facility] [address] [place] [address] documented in this encounter Visit Diagnoses Diagnosis Acute nasopharyngitis- Primary Acute nasopharyngitis (common cold) Close exposure to COVID-19 virus documented in this encounter Additional Health Concerns Infection Onset Date Last Indicated Resolved Time COVID: Suspected 09/05/2021 09/05/2021 09/05/2021 11:51 AM WINDOWS CONSULTANT documented as of this encounter Care Teams Local Hazmat Driver Relationship Specialty Start Date End Date Jabari Bynum MD PCP - General 07/01/20 documented as of this encounter
--- OUTSIDE RECORDS SUMMARY | 2024-08-31 21:58 | XMS_ITS | Encounter Summary ---
Author Organization [facility] Address [address] [place] [address] Care Team Providers Care Production Intern Name Role Phone Jabari Bynum MD Primary Care Provider Reason for Visit * Reason Comments COVID-19 EVALUATION headache, diarrhea, vomiting, sore throat, cough for 3 days. (+) exp to CovidPt is taking allergy relief medicine. 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 Gender Identity Not on file Sexual Orientation Not on file documented as of this encounter Last Filed Vital Signs Vital Sign Reading Time Taken Comments Blood Pressure 130/80 05/04/2023 12:05 PM CDT Pulse 85 05/04/2023 12:05 PM CDT Temperature 36.9 ??C (98.5 ??F) 05/04/2023 12:05 PM C DT Respiratory Rate 18 05/04/2023 12:05 PM CDT Oxygen Saturation 99% 05/04/2023 12:05 PM CDT Inhaled Oxygen Concentration - - Weight 64.4 kg (142 lb) 05/04/2023 12:05 PM CDT Height 156.2 cm (5' 1.5 ) 05/04/2023 12:05 PM CD T Body Mass Index 26.4 05/04/2023 12:05 PM CDT documented in this encounter Progress Notes * Michelle Rodgers, BERILN - 05/04/2023 12:15 PM CDT Images from the original note were not included. Subjective/Objective Patient ID: Rosalba So is a 17 y.o. female. Chief Complaint COVID-19 EVALUATION (headache, diarrhea, vomiting, sore throat, cough for 3 days. (+) exp to Covid//Pt is taking allergy relief medicine.) Pt presents to clinic c/o headache, diarrhea, vomiting, sore throat, and cough. Sx x 3 days. Exposed to covid. Taking allergy medication. Denies fever, chest pain and difficulty breathing. Review of Systems Constitutional: Positive for fever. Negative for chills and fatigue. HENT: Positive for sore throat. Negative for congestion, ear pain, rhinorrhea, sinus pressure, sinus pain and trouble swallowing. Respiratory: Positive for cough. Negative for chest tightness, shortness of breath and wheezing. Cardiovascular: Negative for chest pain and palpitations. Gastrointestinal: Positive for diarrhea and vomiting. Negative for abdominal pain and nausea. Musculoskeletal: Negative for myalgias. Skin: Negative for rash. Neurological: Positive for headaches. Negative for dizziness, weakness and light-headedness. Physical Exam Vitals reviewed. Constitutional: General: She is not in acute distress. Appearance: Normal appearance. HENT: Head: Normocephalic. Right Ear: Hearing, tympanic membrane, ear canal and external ear normal. Left Ear: Hearing, tympanic membrane, ear canal and external ear normal. Nose: Nose normal. Mouth/Throat: Lips: [place]. Mouth: Mucous membranes are moist. Pharynx: Oropharynx is clear. No posterior oropharyngeal erythema. Cardiovascular: Rate and Rhythm: Normal rate and regular rhythm. Pulses: Normal pulses. Heart sounds: Normal heart sounds. Pulmonary: Effort: Pulmonary effort is normal. No respiratory distress. Breath sounds: Normal breath sounds. No stridor. No wheezing, rhonchi or rales. Musculoskeletal: General: Normal range of motion. Lymphadenopathy: Cervical: Cervical adenopathy present. Skin: General: Skin is warm and dry. Neurological: Mental Status: She is alert and oriented to person, place, and time. Psychiatric: Mood and Affect: Mood normal. Vitals: 05/04/23 1205 BP: 130/80 Pulse: 85 Resp: 18 Temp: 36.9 ??C (98.5 ??F) TempSrc: Tympanic SpO2: 99% Weight: 64.4 kg (142 lb) Height: 156.2 cm (5' 1.5 ) Results for orders placed or performed in visit on 05/04/23 COVID-19 POC Result Value Ref Range COVID-19 Ag POC (BD Veritor) Presumptive Negative Presumptive Negative, Invalid Assessment/Plan Diagnoses and all orders for this visit: Suspected COVID-19 virus infection (Primary) - COVID-19 POC - Influenza A/B, RSV, and COVID-19 PCR Nasopharyngeal; Future Covid negative. Will send PCR. Lungs CTA, low suspicion for pneumonia at [...] to rest and increase oral fluid intake Advised to stay out of work and work release given explaining when patient can return to work Patient Education: Disposition Treatment plan including expectations, follow up, and return precautions discussed with patient/parent, verbalizes understanding. Medication dosage, use, and potential adverse reactions discussed with patient/parent. Advised to follow up with PCP if symptoms do not resolve as expected or sooner if condition worsens. Signs/symptoms warranting ER evaluation reviewed. Patient and/or guardian was given an opportunity to ask questions, questions answered. Michelle Rodgers NP documented in this encounter Plan of Treatment Not on file documented as of this encounter Procedures Procedure Name Priority Date/Time Associated Diagnosis Comments COVID-19 POC Routine 05/04/2023 12:20 PM CDT Suspected COVID-19 virus infection documented in this encounter Results * COVID-19 POC (05/04/2023 12:20 PM CDT) COVID-19 Ag POC (BD Veritor) Presumptive Negative Presumptive Negative, Invalid [facility] Nasal 05/04/2023 12:2 0 PM CDT Michelle Rodgers NP POINT OF CARE TEST ORDERABLES F inal Result [facility] [address] [place] [address] * Influenza A/B, RSV, and COVID-19 PCR Nasopharyngeal (05/04/2023 8:44 AM CDT) [facility] COVID-19 RNA Negative Negative [facility] Influenza A RNA Negative Negative [facility] Influenza B RNA Negative Negative [facility] RSV RNA Negative Negative [facility] Comment: Interpretive data: This test is performed using the [employer] Xpert Xpress CoV-2/Flu/RSV plus assay. This is a multiplex, real-time reverse transcriptase PCR assay intended for the qualitative detection of nucleic acid from SARS-CoV-2, influenza A, influenza B, and respiratory syncytial virus. This assay has been reviewed by the FDA for Emergency Use Authorization (EUA). The performance characteristics have been verified by the performing laboratory. Results must be considered in the clinical context, and a negative result does not rule out infection. Interpretive Data last revised 2021. Nasopharyngeal 05/04/2023 8: 44 AM CDT 05/04/2023 9:19 PM CDT Narrative [facility] - 05/04/2023 10:29 PM CDT Is the Patient experiencing symptoms consistent with COVID?->Yes Date of Symptom Onset->05/01/23 Reason for testing?->Symptomatic Is the patient experiencing any symptoms consistent with COVID (eg. Fever, cough, shortness of breath)?->Yes What is the reason for testing?->Symptoms of COVID-19 in low-risk group (Batched) Michelle Rodgers NP LAB MICROBIOLOGY - GENERAL [facility] Final Result Performing Organization Address City/State/[facility] Co al Phone Number SUPRIYA [phone] [address] Department [place] [address] documented in this encounter Visit Diagnoses Diagnosis Suspected COVID-19 virus infection- Primary Suspected COVID-19 virus infection documented in this encounter Additional Health Concerns Infection Onset Date Last Indicated Resolved Time COVID: Suspected 05/04/2023 05/04/2023 05/04/2023 12:29 PM CDT COVID: Suspected 05/04/2023 05/04/2023 05/04/2023 10:30 PM CDT documented as of this encounter Care Teams Production Intern Relationship Specialty Start Date End Date Jabari Bynum MD PCP - General 07/01/20 documented as of this encounter
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
--- OUTSIDE RECORDS SUMMARY | 2024-08-31 21:58 | XMS_ITS | Encounter Summary ---
Author Organization [facility] Address [address] [place] [address] Phone Care Team Providers Care Coreroom Foundry Laborer Name Role Phone Jabari Bynum MD Primary Care Provider Encounter Details Date Type Department Care Team (Late st Contact Info) Description 06/16/2021 Telephone [facility] Pediatric Gastroenterology [facility] 2[address] [place] [address] [place] [id number] Mare Caceres MD [address] [place] [address] [address] [place], [place] [id number] Social History Tobacco Use Types Packs/Day Years [...] on file 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 Covid test will done at PCP's office. Order faxed. Colonoscopy prep instructions given in clinic. documented in this encounter Plan of Treatment Not on file documented as of this encounter Visit Diagnoses Not on filedocumented in this encounter Additional Health Concerns Infection Onset Date Last Indicated Resolved Time COVID: Suspected 06/16/2021 06/16/2021 06/30/2021 3:05 AM CDT documented as of this encounter Care Teams Coreroom Foundry Laborer Relationship Specialty Start Date End Date Jabari Bynum MD PCP - General 07/01/20 documented as of this encounter
--- OUTSIDE RECORDS SUMMARY | 2024-08-31 21:58 | XMS_ITS | Encounter Summary ---
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 * Telephone Encounter - Marianne Ortiz MA - 04/06/2022 10:18 AM CDT ----- Message from Heather Mota NP sent at 04/06/2022 8:09 AM CDT ----- Please let patient know that her PCR was negative. I recommend continuing to quarantine as her symptoms were consistent with COVID. documented in this encounter Plan of Treatment Not on file documented as of this encounter Visit Diagnoses Not on filedocumented in this encounter Additional Health Concerns Infection Onset Date Last Indicated Resolved Time COVID: Suspected 04/05/2022 04/05/2022 04/06/2022 3:05 AM CDT COVID: Suspected 04/05/2022 04/05/2022 04/06/2022 5:15 AM CDT documented as of this encounter Care Teams Gold Leaf Roller Relationship Specialty Start Date End Date Jabari Bynum MD PCP - General 07/01/20 documented as of this encounter
--- OUTSIDE RECORDS SUMMARY | 2024-08-31 21:58 | XMS_ITS | Encounter Summary ---
Author Organization [facility] Address [address] [place] [address] Phone Care Team Providers Care Floor Sweeper Name Role Phone Jabari Bynum MD Primary Care Provider Reason for Visit * Consultation (Routine) - Closed Specialty Diagnoses / Procedures Referred By Contact Referred To Contact Pediatric Gastroenterology Diagnoses Hematochezia Jabari Bynum MD Phone: tel: fax: [facility] (All Locations) Referral ID Status Reason Start Date Expiration Date V isits Requested Visits Authorized [id number] Closed Specialty Services Required 06/03/2021 07/03/2022 4 4 Encounter Details Date Type Department Care Team (Late st Contact Info) Description 06/16/2021 4:00 PM CDT Office Visit [facility] Pediatric Gastroenterology [facility] 2nd [place] [address] [place] [id number] Mare Caceres MD [address] [place] [address] [address] [place] [address] Hematochezia (Primary Dx); Abdominal pain, lower; Abdominal pain, periumbilical; Diarrhea, unspecified type; Nausea and vomiting, intractability of vomiting not specified, unspecified vomiting type Social History Tobacco Use Types Packs/Day Years [...] on file 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 Gender Identity Not on file Sexual Orientation Not on file documented as of this encounter Last Filed Vital Signs Vital Sign Reading Time Taken Comments Blood Pressure 112/76 06/16/2021 3:50 PM CDT Pulse 96 06/16/2021 3:50 PM CDT Temperature 36.7 ??C (98.1 ??F) 06/16/2021 3:50 PM CD T Respiratory Rate 20 06/16/2021 3:50 PM CDT Oxygen Saturation 97% 06/16/2021 3:50 PM CDT Inhaled Oxygen Concentration - - Weight 82.6 kg (182 lb 1.6 oz) 06/16/2021 3:50 P M CDT Height 155.5 cm (5' 1.22 ) 06/16/2021 3:50 PM CD T Body Mass Index 34.16 06/16/2021 3:50 PM CDT Body Mass Index Percentile 97.09% 06/16/2021 3:5 0 PM CDT Growth Chart: [facility] (Girls, 2- 20 Years) documented in this encounter Patient Instructions * Patient Instructions* Mare Caceres MD - 06/16/2021 4:00 PM CDT - Upper endoscopy and colonoscopy - I have sent prescriptions of Omeprazole, dicyclomine and Zofran to her pharmacy - Please use over the counter cinda and/or peppermint oil tablets/caposules for pain. documented in this encounter Ordered Prescriptions Prescription Sig Dispense Quantity Refills Last Filled Start Date End Date ondansetron (ZOFRAN) 4 mg tablet Take 1 tablet (4 mg total) by mouth every 8 (eight) hours as needed for nausea or vomiting 20 tablet 06/16/2021 dicyclomine (BENTYL) 20 mg tablet Take 1 tablet (20 mg total) by mouth 2 (two) times a day 30 tablet 1 06/16/2021 omeprazole (PriLOSEC) 40 mg capsule Take 1 capsule (40 mg total) by mouth daily 30 capsule 1 06/16/2021 documented in this encounter Progress Notes * Mare Caceres MD - 06/16/2021 4:00 PM CDT Thank you for referring Rosalba So for initial consultation in the Pediatric Gi clinic at [facility]. Rosalba is a 15 y.o. female with abdominal pain, nausea, vomiting and diarrhea. She was accompanied by her mother. The history is from them and previous records includingprior notes and laboratory results. HPI Rosalba is here today for initial visit. She was last seen in our clinic more than 3 years ago for similar symptoms. She was about 12 years old then. She is now a 15 yoF h/o girl with migraines, anxiety, and depression p/w 6 weeks of abdominal pain, NBNB emesis, diarrhea (intemittently bloody) and 20 lb weight loss. The details are as below. The onset of symptoms was somewhat acute. It was about 2 months ago. The symptoms have been worsening. She is having daily abdominal pain. It is reji and infraumbilical. It is sharp. It is moderate to severe in intensity. Meals bring this on. No specific dietary triggers. It is associated with fecal urgency and diarrhea. She has been having hematochezia on a regular basis. She is also having nausea and non bilious-non bloody emesis with meals on a regular basis. No straining while stooling. No perianal pain. Over the past few months, Rosalba has overall felt fair. Rosalba has had abdominal pain, vomiting andhematochezia and has not had yellowing of the skin or eyes, pruritus, abdominal distention, unexplained fevers, prolonged bleeding, easy bruising, hematemesis or melena . Rosalba's appetite has been fair. Current nutrition is at risk due to weight loss. She has lost 20 lbs. and weight gain has been. Rosalba's linear height growth has been good. The symptoms have been ongoing for the past 6-8 weeks. This has resulted in 2 ED visits, one at [facility], and other at [facility]. At outside ED, reportedly a CT scan was done, which was normal. At [facility], CBC showed leucocytosis with neutrophilic predominance. UA was normal. CMP showed mild ALT elevation, with rest parameters being normal. CRP and celiac screen were normal. Stool culture, C Diff, O and P were negative. She was evaluated for similar complaints in our clinic in 2018. She had an EGD and colonoscopy which were normal. Biopsies from these procedures were normal as well. Medication compliance has been good. She has h/o migraine, anxiety and depression. Her medicine list is as below. No h/o excessive ibuprofen use. Migraine is well controlled. Ibuprofen use is sparse. Otherwise the interval medical history is negative or non-contributory. No Known Allergies Current Outpatient Medications on File Prior to Visit Medication Sig Dispense Refill ??? [DISCONTINUED] dicyclomine (BENTYL) 20 mg tablet Take 1 tablet (20 mg total) by mouth 2 (two) times a day 20 tablet 0 ??? kakzfnoufyjjq-sikwyzf-mxlapmai (EXCEDRIN MIGRAINE) 250-250-65 mg per tablet Take 2 tablets by mouth every 8 (eight) hours as needed for headaches (Patient not taking: Reported on 05/13/2021) 30 tablet 0 ??? citalopram (CeleXA) 10 mg tablet Take 10 mg by mouth daily. (Patient not taking: Reported on 05/13/2021) 0 ??? topiramate (TOPAMAX) 25 mg tablet Take 1 tablet (25 mg total) by mouth nightly for 7 days, THEN2 tablets (50 mg total) nightly for 24 days. 55 tablet 0 ??? [DISCONTINUED] ibuprofen (ADVIL,MOTRIN) 600 mg tablet (Patient not taking: Reported on 05/13/2021) ??? [DISCONTINUED] omeprazole (PriLOSEC) 20 mg capsule TAKE ONE CAPSULE BY MOUTH TWICE A DAY (Patient not taking: Reported on 05/13/2021) 60 capsule 1 ??? [DISCONTINUED] ondansetron (ZOFRAN) 4 mg tablet Take 1 tablet (4 mg total) by mouth every 8 (eight) hours as needed for nausea or vomiting (Patient not taking: Reported on 06/16/2021) 10 tablet 0 No current facility-administered medications on file prior to visit. PMH - Migraine, anxiety and depression PSH - EGD, colonoscopy. Family h/o - No h/o GI or liver issues Social h/o - Lives with parents. Denies recent stressors at home or school Doing well at school No sick contacts. No recent travel Review of Systems Constitutional: Negative for activity change, appetite change, fatigue and fever. HENT: Negative for congestion, mouth sores, nosebleeds and sore throat. Eyes: Negative for redness. Respiratory: Negative for cough, choking, chest tightness and shortness of breath. Cardiovascular: Negative for chest pain and leg swelling. Gastrointestinal: Positive for abdominal pain, blood in stool, diarrhea, nausea and vomiting. Negative for abdominal distention and constipation. Endocrine: Negative for polydipsia and polyuria. Genitourinary: Negative for decreased urine volume and dysuria. Musculoskeletal: Negative for arthralgias and joint swelling. Skin: Negative for pallor and rash. Allergic/Immunologic: Negative for food allergies. Neurological: Positive for headaches. Negative for syncope and weakness. Hematological: Negative for adenopathy. Does not bruise/bleed easily. Psychiatric/Behavioral: Negative for behavioral problems. BP 112/76 Pulse 96 Temp 36.7 ??C (98.1 ??F) Resp 20 Ht 155.5 cm (5' 1.22 ) Wt 82.6 kg (182 lb 1.6 oz) SpO2 97% BMI 34.16 kg/m?? Physical Exam Vitals reviewed. Constitutional: General: She is not in acute distress. Appearance: She is well-developed. HENT: Head: Normocephalic and atraumatic. Mouth/Throat: Pharynx: No oropharyngeal exudate. Eyes: General: No scleral icterus. Pupils: Pupils are equal, round, and reactive to light. Cardiovascular: Rate and Rhythm: Normal rate and regular rhythm. Heart sounds: No murmur heard. Pulmonary: Effort: Pulmonary effort is normal. Breath sounds: Normal breath sounds. No wheezing. Abdominal: General: Bowel sounds are normal. Palpations: Abdomen is soft. There is no mass. Tenderness: There is no abdominal tenderness. Musculoskeletal: General: No tenderness. Normal range of motion. Cervical back: Normal range of motion. Lymphadenopathy: Cervical: No cervical adenopathy. Skin: General: Skin is warm and dry. Capillary Refill: Capillary refill takes less than 2 seconds. Findings: No rash. Neurological: Mental Status: She is alert. ASSESSMENT 1. Hematochezia 2. Abdominal pain, lower 3. Abdominal pain, periumbilical 4. Diarrhea, unspecified type 5. Nausea and vomiting, intractability of vomiting not specified, unspecified vomiting type Rosalba is a 15 y.o. female with chronic recurrent abdominal pain, nausea, emesis, diarrhea and hematochezia. She has h/o weight loss. Initial lab evaluation does not show any evidence of organic disease Differential Diagnosis - Functional gastrointestinal disorder (Gastroenterology 2016;[id number]) like IBS-D and functional dyspepsia - Inflammatory Bowel Disease is a possibility. - Peptic Ulcer Disease Less Likely - Eosinophilic Gastro-intestinal Disorder Liver Disease Status: Elevated transaminases with normal synthetic function Maybe LEMUS, but I am not sure. Nutrition Assessment: At Risk Growth Assessment: Satisfactory Psychosocial Risk Factors: Yes PLAN No orders of the defined types were placed in this encounter. Medications: Omeprazole 40 mg Po daily Zofran 4 mg Po TID PRN nausea/vomiting Dicyclomine 20 mg Po 3-4 times a day PRN abdominal pain OTC peppermint oil tablets and/or cinda Labs: not needed today Procedures/Imaging: EGD and colonoscopy with biopsy Diet: Regular Follow-up appointment: Will depend on the above documented in this encounter Plan of Treatment Not on file documented as of this encounter Visit Diagnoses Diagnosis Hematochezia- Primary Blood in stool Abdominal pain, lower Abdominal pain, other specified site Abdominal pain, periumbilical Abdominal pain, periumbilic Diarrhea, unspecified type Nausea and vomiting, intractability of vomiting not specified, unspecified vomiting type documented in this encounter Discontinued Medications Medication Sig Discontinue Reason Start Date End Da te omeprazole (PriLOSEC) 20 mg capsule TAKE ONE CAPSULE BY MOUTH TWICE A DAY Alternate therapy 02/05/2018 06/16/2021 ibuprofen (ADVIL,MOTRIN) 600 mg tablet Therapy completed 10/31/2017 06/16/2021 dicyclomine (BENTYL) 20 mg tablet Take 1 tablet (20 mg total) by mouth 2 (two) times a day Reorder 06/04/2021 06/16/2021 ondansetron (ZOFRAN) 4 mg tablet Take 1 tablet (4 mg total) by mouth every 8 (eight) hours as needed for nausea or vomiting Reorder 06/04/2021 06/16/2021 documented as of this encounter Orders Outpatient Referral Count Last Ordered Date Fir st Ordered Date AMB REFERRAL TO PEDIATRIC GASTROENTEROLOGY 1 06/16/2021 documented in this encounter Care Teams Floor Sweeper Relationship Specialty Start Date End Date Jabari Bynum MD PCP - General 07/01/20 documented as of this encounter
--- OUTSIDE RECORDS SUMMARY | 2024-08-31 21:58 | XMS_ITS | Encounter Summary ---
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 Gender Identity Not on file Sexual Orientation Not on file documented as of this encounter Medications at Time of Discharge buPROPion XL (WELLBUTRIN XL) 150 mg 24 hr tablet Take 1 tablet (150 mg total) by mouth daily 07/29/2022 citalopram (CeleXA) 10 mg tablet Take 10 mg by mouth daily 0 06/27/[address] (CYMBALTA) 20 mg capsule 07/07/2021 lamoTRIgine (LaMICtal) 25 mg tablet Take 50 mg by mouth daily 10/29/2021 methylPREDNISolone (Medrol, Telly,) 4 mg DosepackIndications: Acute nasopharyngitis follow package directions 1 packet 09/05/2021 ondansetron (ZOFRAN) 4 mg tablet Take 1 tablet (4 mg total) by mouth every 8 (eight) hours as needed for nausea or vomiting 20 tablet 06/16/2021 ondansetron (Zofran) 4 mg tabletIndications:Ga stroenteritis Take 1 tablet (4 mg total) by mouth every 8 (eight) hours as needed for nausea or vomiting 20 tablet 12/27/2021 ondansetron ODT (ZOFRAN-ODT) 4 mg disintegrating tabletIndications:Na usea and vomiting, unspecified vomiting type Take 1 tablet (4 mg total) by mouth every 8 (eight) hours as needed for nausea or vomiting 20 tablet 08/24/2022 topiramate (TOPAMAX) 25 mg tablet Take 1 tablet (25 mg total) by mouth nightly for 7 days, THEN 2 tablets (50 mg total) nightly for 24 days. 55 tablet 09/07/2020 02/12/20 24 documented as of this encounter Discharge Disposition Disposition Code Departure Means Destination Discharge to home or self care documented in this encounter Miscellaneous Notes * Result Encounter Note - Eunice Cyr MA - 05/04/2023 11:59 PM CDT Spoke with the patient, she was informed of negative results. She states understanding. documented in this encounter Plan of Treatment Not on file documented as of this encounter Procedures Procedure Name Priority Date/Time Associated Diagnosis Comments INFLUENZA A/B, RSV, AND COVID-19 PCR Routine 05/04/2023 8:44 AM CDT Suspected COVID-19 virus infection documented in this encounter Results * Influenza A/B, RSV, and COVID-19 PCR Nasopharyngeal (05/04/2023 8:44 AM CDT) COVID-19 RNA Negative Negative [facility] Influenza A RNA Negative Negative [facility] Influenza B RNA Negative Negative [facility] RSV RNA Negative Negative [facility] Comment: Interpretive data: This test is performed using the [employer] Xpert Xpress CoV-2/Flu/RSV plus assay. This is [...] AM CDT 05/04/2023 9:19 PM CDT Narrative [facility] - 05/04/2023 10:29 PM CDT Is the Patient experiencing symptoms consistent with COVID?->Yes Date of Symptom Onset->05/01/23 Reason for testing?->Symptomatic Is the patient experiencing any symptoms consistent with COVID (eg. Fever, cough, shortness of breath)?->Yes What is the reason for testing?->Symptoms of COVID-19 in low-risk group (Batched) Michelle Rodgers NP LAB MICROBIOLOGY - [facility] Final Result [facility] [id number] [facility] Department [place] [address] documented in this encounter Visit Diagnoses Diagnosis Suspected COVID-19 virus infection documented in this encounter Additional Health Concerns Infection Onset Date Last Indicated Resolved Time COVID: Suspected 05/04/2023 05/04/2023 05/04/2023 10:30 PM CDT documented as of this encounter Care Teams Take Out Waitress Relationship Specialty Start Date End Date Jabari Bynum MD PCP - General 07/01/20 documented as of this encounter
--- OUTSIDE RECORDS SUMMARY | 2024-08-31 21:58 | XMS_ITS | Encounter Summary ---
Author Organization [facility] Address [address] [place] [id number] Care Team Providers Care Metalizing Supervisor Name Role Phone Jabari Bynum MD Primary Care Provider Reason for Visit * Reason Comments COVID-19 EVALUATION sx onset Monday, . Positive COVID exposure, not vaccinated. c/o sore throat, headache, diminished taste, Had covid August 2020. Encounter Details Date Type Department Care Team (Late st Contact Info) Description 07/29/2021 3:00 PM UNIX DEVELOPER Office Visit [facility] [address] [place] [id number] Kailee Moreno, [place] [address] [place] [address] Close exposure to COVID-19 virus; Sore throat [...] on file Legal Sex Female 3:14 AM UNIX DEVELOPER Gender Identity Not on file Sexual Orientation Not on file documented as of this encounter Last Filed Vital Signs Vital Sign Reading Time Taken Comments Blood Pressure 108/80 07/29/2021 3:19 PM UNIX DEVELOPER Pulse 75 07/29/2021 3:19 PM UNIX DEVELOPER Temperature 36.9 ??C (98.4 ??F) 07/29/2021 3:19 PM CS T Respiratory Rate 18 07/29/2021 3:19 PM UNIX DEVELOPER Oxygen Saturation 98% 07/29/2021 3:19 PM UNIX DEVELOPER Inhaled Oxygen Concentration - - Weight 81.1 kg (178 lb 12.8 oz) 07/29/2021 3:19 PM UNIX DEVELOPER Height 154.9 cm (5' 1 ) 07/29/2021 3:19 PM UNIX DEVELOPER Body Mass Index 33.78 07/29/2021 3:19 PM UNIX DEVELOPER Body Mass Index Percentile 96.85% 07/29/2021 3:1 9 PM UNIX DEVELOPER Growth Chart: [facility] (Girls, 2- 20 Years) documented in this encounter Patient Instructions * Patient Instructions* Kailee Moreno, [place] - 07/29/2021 3:00 PM UNIX DEVELOPER You have an upper respiratory infection with [...] HAVE BEEN VACCINATED: NO RECOMMENDATION FOR QUARANTINE. DEVELOPER documented in this encounter Progress Notes * Kailee Moreno NP - 07/29/2021 3:00 PM CST Images from the original note were not included. Patient ID: Rosalba So is a 16 y.o. female followed by Jabari Bynum MD Patient was wearing the following PPE: mask. MA was wearing the following PPE: mask, gown, gloves and face shield. Provider was wearing the following PPE: mask, gown, gloves and face shield. Chief Complaint Patient presents with ??? COVID-19 EVALUATION sx onset 07/26/21. Positive COVID exposure, not vaccinated. c/o sore throat, headache, diminished taste, Had covid August 2020. URI This is a new problem. The current episode started in the past 7 days (07/26/2021). The problem hasbeen unchanged. There has been no fever. Associated symptoms include congestion, coughing, diarrhea, ear pain, headaches, a plugged ear sensation, rhinorrhea and a sore throat. Pertinent negatives include no abdominal pain, chest pain, dysuria, nausea, neck pain, rash, shortness of breath, sneezing, vomiting or wheezing. Treatments tried: advil cold and flu, cough drops. The treatment provided mild relief. Patient presents to clinic for assessment of Chief Complaint Patient presents with ??? COVID-19 EVALUATION sx onset 07/26/21. Positive COVID exposure, not vaccinated. c/o sore throat, headache, diminished taste, Had covid August 2020. . Patient reports DRY COUGH, SORE THROAT, NASAL CONGESTION, NASAL DRAINAGE, DIARRHEA, HEADACHE and FATIGUE Patient reports this has been going on for 4 days. Patient with sick or suspected COVID-19 contacts: Yes Patient has following risks for COVID-19: none Patient has not been fully vaccinated for Covid-19. Patient works [employer] Patient lives at home with mother Review of Systems Constitutional: Positive for appetite change (decreased) and fatigue. Negative for chills and fever. HENT: Positive for congestion, ear pain, postnasal drip, rhinorrhea and sore throat. Negative for sneezing and trouble swallowing. Eyes: Negative for pain, discharge, redness and itching. Respiratory: Positive for cough. Negative for chest tightness, shortness of breath and wheezing. Cardiovascular: Negative for chest pain and leg swelling. Gastrointestinal: Positive for diarrhea. Negative for abdominal pain, constipation, nausea and vomiting. Genitourinary: Negative for difficulty urinating, dysuria, frequency and urgency. Musculoskeletal: Negative for back pain, myalgias and neck pain. Skin: Negative for rash and wound. Allergic/Immunologic: Negative for environmental allergies and food allergies. Neurological: Positive for headaches. Negative for dizziness and weakness. Current Outpatient Medications Medication Sig Dispense Refill ??? citalopram (CeleXA) 10 mg tablet Take 10 mg by mouth daily 0 ??? dicyclomine (BENTYL) 20 mg tablet Take 1 tablet (20 mg total) by mouth 2 (two) times a day 30 tablet 1 ??? omeprazole (PriLOSEC) 40 mg capsule Take 1 capsule (40 mg total) by mouth daily 30 capsule 1 ??? ondansetron (ZOFRAN) 4 [...] Never Smoker Smokeless Tobacco Never Used Vitals: 07/29/21 1519 BP: 108/80 BP Location: Left arm Patient Position: Sitting Pulse: 75 Resp: 18 Temp: 36.9 ??C (98.4 ??F) TempSrc: Oral SpO2: 98% Weight: 81.1 kg (178 lb 12.8 oz) Height: 154.9 cm (5' 1 ) Physical Exam Vitals and nursing note reviewed. Constitutional: General: She is awake. Appearance: Normal appearance. She is well-developed, well-groomed and overweight. HENT: Head: Normocephalic and atraumatic. Right Ear: Tympanic membrane and external ear normal. Left Ear: Tympanic membrane and external ear normal. Nose: Nose normal. Mouth/Throat: Lips: [place]. Mouth: Mucous membranes are moist. Pharynx: Oropharynx [...] Normal range of motion and neck supple. Lymphadenopathy: Cervical: No cervical adenopathy. Skin: General: Skin is warm and dry. Capillary Refill: Capillary refill takes less than 2 seconds. Neurological: Mental Status: She is alert and oriented to person, place, and time. Psychiatric: Behavior: Behavior normal. Behavior is cooperative. Assessment/Plan Diagnoses and all orders for this visit: Close exposure to COVID-19 virus - COVID-19 POC - POCT rapid strep A - Throat culture Throat Pharyngeal; Future Sore throat - POCT rapid strep A - Throat culture Throat Pharyngeal; Future Results for orders placed or performed in visit on 07/29/21 COVID-19 POC Result Value Ref Range COVID-19 Ag POC (BD Veritor) Presumptive Negative Presumptive Negative, Invalid POCT rapid strep A Result Value Ref Range Rapid Strep A, POC Negative You have an upper respiratory infection with [...] HAVE BEEN VACCINATED: NO RECOMMENDATION FOR QUARANTINE. Discussed COVID testing reasoning Discussed symptomatic relief of symptoms Discussed need to return to ER for further evaluation including worsening fevers, shortness of breath, of other concerning symptoms Advised to rest and stay adequately hydrated Orders Placed This Encounter Procedures ??? Throat culture Throat Pharyngeal Standing Status: Future Standing Expiration Date: 07/29/2022 ??? COVID-19 POC Order Specific Question: Is the Patient experiencing symptoms consistent with COVID? Answer: Yes Order Specific Question: Date of Symptom Onset Answer: 07/26/2021 Order Specific Question: Is the patient hospitalized? Answer: No Order Specific Question: Is the patient admitted to an ICU? Answer: No Order Specific Question: Does the patient currently work in a healthcare facility with direct patient contact? Answer: No Order Specific Question: Is the patient a resident of a congregate care or living setting? Answer: No Order Specific Question: ? Answer: No ??? POCT rapid strep A Kailee Moreno NP DEVELOPER documented in this encounter Plan of Treatment Not on file documented as of this encounter Procedures Procedure Name Priority Date/Time Associated Diagnosis Comments COVID-19 POC Routine 07/29/2021 3:49 PM UNIX DEVELOPER Close exposure to COVID-19 virus POCT RAPID STREP Routine 07/29/2021 3:49 PM UNIX DEVELOPER Close exposure to COVID-19 virus Sore throat documented in this encounter Results * POCT rapid strep A (07/29/2021 3:49 PM UNIX DEVELOPER) Rapid Strep A, POC Negative Swab 07/29/2021 3:49 PM UNIX DEVELOPER Kialee Moreno NP POINT OF CARE TEST ORDERABLES Final Result * COVID-19 POC (07/29/2021 3:49 PM UNIX DEVELOPER) COVID-19 Ag POC (BD Veritor) Presumptive Negative Presumptive Negative, Invalid [facility] Nasal 07/29/2021 3:49 PM UNIX DEVELOPER Kailee Moreno NP POINT OF CARE TEST ORDERABLES Final Result Performing Organization Address City/[facility]/ZIP Co de Phone Number [facility] [address] [place] [address] * Throat culture Throat Pharyngeal (07/29/2021 3:30 PM UNIX DEVELOPER) Report Final Report: No growth of pathogens. SUPRIYA CANALES Comment:Testing performed by : [facility], [address] [facility] [place]., [address] Throat (Pharyngeal) 07/29/2021 3:30 PM UNIX DEVELOPER 07/30/2021 1:11 PM UNIX DEVELOPER Narrative SUPRIYA CANALES - 07/31/2021 10:40 AM UNIX DEVELOPER Testing performed by [facility] ([phone]). Kailee Moreno NP LAB MICROBIOLOGY - GENERAL OR DERABLES Final Result SUPRIYA CANALES [address] [place] [address] documented in this encounter Visit Diagnoses Diagnosis Close exposure to COVID-19 virus Sore throat Acute pharyngitis Close exposure to COVID-19 virus Sore throat Acute pharyngitis documented in this encounter Additional Health Concerns Infection Onset Date Last Indicated Resolved Time COVID: Suspected 07/29/2021 07/29/2021 07/29/2021 3:50 PM UNIX DEVELOPER documented as of this encounter Care Teams Metalizing Supervisor Relationship Specialty Start Date End Date Jabari Bynum MD PCP - General 07/01/20 documented as of this encounter
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
--- OUTSIDE RECORDS SUMMARY | 2024-08-31 21:58 | XMS_ITS | Encounter Summary ---
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 I recommend continuing to quarantine as her symptoms were consistent with COVID. documented in this encounter Plan of Treatment Not on file documented as of this encounter Procedures Procedure Name Priority Date/Time Associated Diagnosis Comments COVID-19 CORONAVIRUS RNA Routine 04/05/2022 3:22 PM CDT Suspected COVID-19 virus infection documented in this encounter Results * COVID-19 Coronavirus RNA Nasopharyngeal (04/05/2022 3:22 PM CDT) COVID-19 RNA Not Detected SUPRIYA CANALES Comment: Interpretive Data Synonyms for this test include: PCR and NAAT . ??Testing performed by the [facility]. The 2018-Novel Coronavirus Assay (COVID-19) Real Time RT-PCR assay [...] on October 01, 2020. Testing performed by: [facility], [address] [place] [place]., [address] Nasopharyngeal 04/05/2022 3: 22 PM CDT 04/06/2022 12:18 AM CDT Narrative SUPRIYA CANALES - 04/06/2022 5:14 AM CDT Is the patient experiencing any symptoms consistent with COVID (eg. Fever, cough, shortness of breath)?->Yes What is the reason for testing?->Symptoms of COVID-19 in low-risk group (Batched) Date of Symptom Onset->04/04/22 Heather Mota NP LAB MICROBIOLOGY - GENERAL ORDER COLT Final Result [facility] [id number] Department of Laboratories [place], [place] [id number] documented in this encounter Visit Diagnoses Diagnosis Suspected COVID-19 virus infection documented in this encounter Additional Health Concerns Infection Onset Date Last Indicated Resolved Time COVID: Suspected 04/05/2022 04/05/2022 04/06/2022 3:05 AM CDT documented as of this encounter Care Teams Tail Worker Relationship Specialty Start Date End Date Jabari Bynum MD PCP - General 07/01/20 documented as of this encounter
--- OUTSIDE RECORDS SUMMARY | 2024-08-31 21:58 | XMS_ITS | Encounter Summary ---
Author Organization [facility] Healthcare Address [address] [place] [address] Care Team Providers Care General Labor Name Role Phone Jabari Bynum MD Primary Care Provider Encounter Details Date Type Department Care Team (Late st Contact Info) Description 09/19/2021 8:30 PM OPERATIONS AND MAINTENANCE TECHNICIAN Lab [address] [address] Viral URI with cough Social History Tobacco Use Types Packs/Day Years [...] file Legal Sex Female 3:14 AM OPERATIONS AND MAINTENANCE TECHNICIAN Gender Identity Not on file Sexual Orientation Not on file documented as of this encounter Miscellaneous Notes * Result Encounter Note - Federico Guillen MA - 09/21/2021 9:23 AM CST LMTRC ATIONS AND MAINTENANCE TECHNICIAN * Result Encounter Note - Alexa Pickett NP - 09/21/2021 8:07 AM OPERATIONS AND MAINTENANCE TECHNICIAN No growth on throat culture no treatment necessary. ATIONS AND MAINTENANCE TECHNICIAN documented in this encounter Plan of Treatment Not on file documented as of this encounter Procedures Procedure Name Priority Date/Time Associated Diagnosis Comments THROAT CULTURE Routine 09/19/2021 8:28 PM OPERATIONS AND MAINTENANCE TECHNICIAN Viral URI with cough documented in this encounter Results * Throat culture Throat (09/19/2021 8:28 PM OPERATIONS AND MAINTENANCE TECHNICIAN) Report Final Report: No growth of pathogens. SUPRIYA CANALES Comment:Testing performed by : [facility], [address] [place]., [address] Throat 09/19/2021 8:28 PM OPERATIONS AND MAINTENANCE TECHNICIAN 09/20/2021 12:13 AM OPERATIONS AND MAINTENANCE TECHNICIAN Narrative SUPRIYA - 09/20/2021 6:54 PM OPERATIONS AND MAINTENANCE TECHNICIAN Testing performed by [facility] ([phone]). Kailee Moreno NP LAB MICROBIOLOGY - GENERAL OR DERABLES Final Result [facility] [address] [address] Department [place] [address] documented in this encounter Visit Diagnoses Diagnosis Viral URI with cough documented in this encounter Care Teams General Labor Relationship Specialty Start Date End Date Jabari Bynum MD PCP - General 07/01/20 documented as of this encounter
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
--- OUTSIDE RECORDS SUMMARY | 2024-08-31 21:58 | XMS_ITS | Encounter Summary ---
Author Organization [facility] Healthcare Address [address] [place] [address] Care Team Providers Care Mission Assessment Specialist Name Role Phone Jabari Bynum MD Primary Care Provider Encounter Details Date Type Department Care Team (Late st Contact Info) Description 07/12/2021 11:50 AM SENIOR SPECIALIST - 07/12/2021 1:30 PM SENIOR SPECIALIST Surgery [facility] [place] [address] Hira Velasco MD PhD [address] [phone] [place] [address] PEDIATRIC - UPPER ENDOSCOPY with biopsies Surgery Details Date/Time Status Location OR Service Patient Class Case Class Case Type Trauma Case? 07/12/2021 11:50 AM Posted [facility] OPERATING ROOM [place] Gastroenterology Outpatient Elective Panel 1 Procedure LRB Anes Op Region Wound Class Comments PEDIATRIC - UPPER ENDOSCOPY with biopsies N/A General Class II - Clean Contaminated PEDIATRIC - COLONOSCOPY with biopsies N/A General Class II - Clean Contaminated Surgeon Surgeon Role Service Panel Hira Velasco MD PhD Primary Gastroentero logy 1 Ginger Alas MD Fellow Minor Procedu res 1 documented in this encounter Social History Tobacco [...] file Legal Sex Female 3:14 AM SENIOR SPECIALIST Gender Identity Not on file Sexual Orientation Not on file documented as of this encounter Last Filed Vital Signs Vital Sign Reading Time Taken Comments Blood Pressure 110/64 07/12/2021 1:18 PM SENIOR SPECIALIST Pulse 70 07/12/2021 1:18 PM SENIOR SPECIALIST Temperature 36.3 ??C (97.3 ??F) 07/12/2021 1:18 PM CS T Respiratory Rate 20 07/12/2021 1:18 PM SENIOR SPECIALIST Oxygen Saturation 100% 07/12/2021 1:18 PM SENIOR SPECIALIST Inhaled Oxygen Concentration - - Weight 80.2 kg (176 lb 12.9 oz) 021 10:40 AM SENIOR SPECIALIST Height 156 cm (5' 1.42 ) 07/12/2021 10: 40 AM SENIOR SPECIALIST Body Mass Index 32.96 07/12/2021 10:40 AM SENIOR SPECIALIST Body Mass Index Percentile 96.46% 07/12 10:40 AM SENIOR SPECIALIST Growth Chart: [facility] (Girls, 2- 20 Years) documented in this encounter Discharge Instructions * Discharge Instructions* Jeniffer Araujo, ROSENDO - 07/12/2021 1:00 PM SENIOR SPECIALIST Discharge Instructions for Children Receiving Anesthesia Although your child is now awake and ready to go home, some of the side effects of anesthesia may last for several hours. If you have any concerns, please use the following contact numbers: Emergencies Call 911 ?? If your child is having a hard time breathing ?? Unable to speak or cry because of difficulty breathing ?? Lips or fingernails are turning blue or white ?? You are unable to wake your child Non-Emergencies Call Same Day Surgery (during regular business hours) Call (after 4pm and weekends) ask for the Anesthesia Physician liaison officer ?? If your child is vomiting more than 3 times after leaving the hospital ?? Has increasing pain ?? Has an unexplained fever over 101 degrees Fahrenheit ?? Any sign of infection at IV/Procedure site: increasingly tender, red, swollen, drainage. ?? Any other concerns Home Care Instructions A. Safety ?? Your child should NOT be left unattended and should be watched very closely ?? Keeping your child safe is especially important after anesthesia ?? Your child may want to sleep. This is normal and OK. It is important to place your child on their side or back while they sleep and to check on them frequently. ?? Always keep your child in a properly sized car seat for their age and weight. ?? While in the car set, observe head position and breathing. Your child may fall asleep causing their head to fall forward or to the side. This can block their airway and make it hard for your childto breathe. If this happens, you may hear your child snore. Reposition your child's head to keep the neck straight with chin off the chest. B. Activity ?? Some children may experience behavior changes and/or irritability after sedation. ?? Your child may be dizzy, less alert or unsteady. Your child should not walk or crawl unattended for 4-6 hours. ?? Your child should not do activities such as bike riding, swimming, exercising, running or any sports today. ?? Your child should not return to daycare or school today. They may return to daycare or school the following day. C. Diet ?? Keep meals small and light for the rest of the day. ?? If your child vomits after eating, they should not eat anything for the next hour. After an hour, your child can try clear liquids, such as Jell-O, juice, or water. If your child does not vomit, slowly advance diet to soft food and then to regular food. D. Pain Management ??? Please see Children's pain management handout for instructions. Thank you for choosing [facility]! OR SPECIALIST documented in this encounter Medications at Time of Discharge citalopram (CeleXA) 10 mg tablet Take 10 mg by mouth daily 0 06/27/2018 dicyclomine (BENTYL) 20 mg tablet Take 1 tablet (20 mg total) by mouth 2 (two) times a day 30 tablet 1 06/16/[address] (CYMBALTA) 20 mg capsule 07/07/2021 omeprazole (PriLOSEC) 40 mg capsule Take 1 capsule (40 mg total) by mouth daily 30 capsule 1 06/16/2021 ondansetron (ZOFRAN) 4 mg tablet Take 1 tablet (4 mg total) by mouth every 8 (eight) hours as needed for nausea or vomiting 20 tablet 06/16/2021 topiramate (TOPAMAX) 25 mg tablet Take 1 tablet (25 mg total) by mouth nightly for 7 days, THEN 2 tablets (50 mg total) nightly for 24 days. 55 tablet 09/07/2020 02/12/2024 documented as of this encounter Discharge Disposition Disposition Code Departure Means Destination Discharge to home or self care documented in this encounter H&P Notes * Ginger Alas MD - 07/12/2021 11:07 AM CST I have reviewed the H&P, examined the patient, and endorse the findings as written. Plan of Care : Based on the above findings, I consider Rosalba Li to be an acceptable riskfor : Procedure(s): PEDIATRIC - UPPER ENDOSCOPY PEDIATRIC - COLONOSCOPY Cosigned by Hira Velasco MD PhD at 07/14/2021 2:15 PM SENIOR SPECIALIST OR SPECIALIST OR SPECIALIST Associated attestation - Hira Velasco MD PhD - 07/14/2021 2:15 PM SENIOR SPECIALIST *I have seen and examined the patient on 07/12/2021. I agree with the findings and plan of care as documented in the resident's/fellow's note.. Hira Velasco MD PhD Source Note - Rusty Thompson NP - 07/12/2021 11:01 AM SENIOR SPECIALIST Images from the original note were not included. Anesthesia Evaluation Rosalba Li is a 15 y.o. female Procedure(s): PEDIATRIC - UPPER ENDOSCOPY PEDIATRIC - COLONOSCOPY Pre-Op Diagnosis Codes: * Hematochezia [K92.1] * Abdominal pain, periumbilical [R10.33] * Nausea and vomiting, intractability of vomiting not specified, unspecified vomiting type [R11.2] HISTORY HPI Rosalba Li is an 15 y.o. female with history [...] PAT Summary and Plans Additional comments: Last 11/2017: TIVA for upper endoscopy. Patient Active [...] for requested labs within last 720 hours. OR SPECIALIST documented in this encounter Procedure Notes * Hira Velasco MD PhD - 07/12/2021 11:47 AM CSTAssociated Order(s): EGD [facility] Patient Name: Rosalba Li Procedure Date: 07/12/2021 11:47 AM Date of : 2005 Admit Type: Outpatient Age: 15 Gender: Female Attending MD: Hira Velasco MD, PHD Procedure: Pediatric Upper GI Endoscopy Providers: Hira Velasco MD, PHD (Doctor), Ginger Alas, Fellow (Fellow), Phill Benitez, middle school science teacher (Nurse), Maria Ines Dennis RN (Nurse), María Hernandez M.D. (Automotive Drivability Technician), Joan Olea CRNA (Automotive Drivability Technician) Referring MD: Jabari yBnum M.D. (Referring MD) Requesting Provider: Mare Caceres M.D. (Requesting Physician) Indications: Lower abdominal pain, Diarrhea Medicines: General Anesthesia without ET Tube Procedure: The risk and benefits of the procedure and the sedation options and risks were discussed with the patient and caregiver(s). All questions were answered and informed consent was obtained. Patient identification and proposed procedure were verified prior to the procedure by the physician, the nurse and the combination worker. The time out was done in the room prior to the start of the procedure. After I obtained informed consent, the scope was passed under direct vision. Throughout the procedure, the patient's blood pressure, pulse, and oxygen saturations were monitored continuously by anesthesia. GIF-[id number] #[id number] upper endoscope was introduced through the mouth, and advanced to the second part of duodenum. The upper GI endoscopy was accomplished without difficulty. The patient tolerated the procedure well. Findings: The examined esophagus was normal. Biopsies were taken with a cold forceps for histology. The entire examined stomach was normal. Biopsies were taken with a cold forceps for histology. Biopsies were taken with a cold forceps for Helicobacter pylori testing using CLOtest. The examined duodenum was normal. Impression: - Normal esophagus. Biopsied. - Normal stomach. Biopsied. - Normal examined duodenum. Estimated Blood Loss: Estimated blood loss: none. Complications: No immediate complications. Recommendation: - Discharge patient to home with caregiver(s). -Await pathology results -Follow up to be determined at later date. -Patient has a contact number available for emergencies. The signs and symptoms of potential delayed complications were discussed with the patient. Return to normal activities tomorrow. Written discharge instructions were provided to the patient/caregiver(s). No aspirin, ibuprofen, naproxen, or other non-steroidal anti-inflammatory drugs for 7 days. Procedure code(s): 07/12/2021 11:47:00 AM Attending Participation: I was present and participated during the entire procedure, including non-khan portions. Hira Velasco MD, PHD 07/12/2021 12:19:52 PM By signing this report, I certify that I, the attending physician, personally performed or supervised the procedure reported above and was physically present during the entire procedure. Ginger Alas, Fellow Number of Addenda: 0 Note Initiated On: 07/12/2021 11:47 AM OR SPECIALIST * Hira Velasco MD PhD - 07/12/2021 11:45 AM CSTAssociated Order(s): COLONOSCOPY [facility] Patient Name: Rosalba Li Procedure Date: 07/12/2021 11:45 AM Date of : 2005 Admit Type: Outpatient Age: 15 Gender: Female Attending MD: Hira Velasco MD, PHD Procedure: Pediatric Colonoscopy Providers: Hira Velasco MD, PHD (Doctor), Ginger Alas, Fellow (Fellow), Phill Benitez, middle school science teacher (Nurse), Maria Ines Dennis RN (Nurse), María Hernandez M.D. (Automotive Drivability Technician), Joan Olea CRNA (Automotive Drivability Technician) Referring MD: Jabari Bynum M.D. (Referring MD) Requesting Provider: Mare Caceres M.D. (Requesting Physician) Indications: Lower abdominal pain, Diarrhea Medicines: General Anesthesia without ET Tube Procedure: The risk and benefits of the procedure and the sedation options and risks were discussed with the patient and caregiver(s). All questions were answered and informed consent was obtained. Patient identification and proposed procedure were verified prior to the procedure by the physician, the nurse and the combination worker. The time out was done in the room prior to starting the procedure. After I obtained informed consent, the scope was passed under direct vision. Throughout the procedure, the patient's blood pressure, pulse, and oxygen saturations were monitored continuously by anesthesia. [facility] [id number] #[id number] pediatric colonoscope was introduced through the anus and advanced to the terminal ileum. The colonoscopy was performed without difficulty. The patient tolerated the procedure well. The quality of the bowel preparation was good. Findings: Discontinuous areas of nonbleeding ulcerated mucosa with stigmata of recent bleeding were present in the recto-sigmoid and descending colon. Biopsies were taken with a cold forceps for histology. The terminal ileum appeared normal. Biopsies were taken with a cold forceps for histology. Impression: - Mucosal ulceration. Biopsied. - The examined portion of the ileum was normal. Biopsied. Estimated Blood Loss: Estimated blood loss: none. Complications: No immediate complications. Recommendation: - Discharge patient to home with caregiver(s). -Await pathology results -Follow up to be determined at later date. -Patient has a contact number available for emergencies. The signs and symptoms of potential delayed complications were discussed with the patient. Return to normal activities tomorrow. Written discharge instructions were provided to the patient/caregiver(s). No aspirin, ibuprofen, naproxen, or other non-steroidal anti-inflammatory drugs for 7 days. - Repeat colonoscopy. Procedure code(s): 07/12/2021 11:45:06 AM Attending Participation: I was present and participated during the entire procedure, including non-khan portions. Hira Velasco MD, PHD 07/12/2021 12:39:54 PM By signing this report, I certify that I, the attending physician, personally performed or supervised the procedure reported above and was physically present during the entire procedure. Ginger Alas, Fellow Number of Addenda: 0 Note Initiated On: 07/12/2021 11:45 AM OR SPECIALIST documented in this encounter Miscellaneous Notes * Pre-Procedure Instructions - Lyly Sam RN - 07/09/2021 2:56 PM CST We are pleased that you and your doctor have chosen [facility] for this surgery. We hope that the following information will help make your visit a pleasant one. Any changes in health status from screening call: FAMILY AWARE VIA VAIBHAV TO CALL IF STATUS CHANGES PRIOR TO DOS Times sent via vaibhav Surgery Date: 07/12/2021 Surgery Time: 1150 Arrival Time: 1015 Solids Time: STOP at 07/11 Bowel Prep (solid food, milk products, formula) Clears Time: STOP at 0815 (water, clear apple juice, white soda or electrolyte solutions such as Gatorade or Pedialyte.) Nothing in mouth after Clears time Night before your surgery: ?? Good bath/shower, wash hair and brush teeth. Wear clean clothes after bath/shower. Day of surgery: We are located on the 6th floor of [facility]. Please take green Atrium elevators. Check in at the Registration Desk in the Same Day Surgery Waiting Area. Give medication as directed. ?? No makeup, no jewelry (including all body piercings) nail uzbek and no metal in hair. ?? Dress in clean comfortable clothes. No contact lens or removable dental retainers. ?? We may require a urine sample of your child. No tampons, must wear pad only. ?? If you have a special item such as stuffed animal, pillow or blanket please bring with you. ?? If you use a BIPAP,CPAP machine or glucometer machine, please bring it with you. ?? Please bring insurance cards and photo ID for any adult with you. ?? Park in the Main Garage across from the main hospital. ?? Check in at the Registration Desk on the 6th Floor in the Perioperative Area When you arrive for the procedure: ?? You will be registered and taken back to the pre-op room. We limit visitors to 2 at a time with the patient. We ask that you not bring other children with you. ?? An IV may be started prior to going to sleep. ?? A head to toe cleansing with antibacterial wipes may be completed while you are still awake. Please call [phone] if you have questions, concerns or are delayed on day of surgery. OR SPECIALIST * Pre-Procedure Instructions - Lyly Sam RN - 07/09/2021 10:56 AM CST We are pleased that you and your doctor have chosen [facility] for this surgery. We hope that the following information will help make your visit a pleasant one. Any changes in health status from screening call: FAMILY AWARE VIA VAIBHAV TO CALL IF STATUS CHANGES PRIOR TO DOS Times sent via vaibhav Surgery Date: 07/12/2021 Surgery Time: 0945 Arrival Time: 0815 Solids Time: STOP at 0830 07/11 (solid food, milk products, formula) Clears Time: STOP at 0615 (water, clear apple juice, white soda or electrolyte solutions such as Gatorade or Pedialyte.) Nothing in mouth after Clears time Night before your surgery: ?? Good bath/shower, wash hair and brush teeth. Wear clean clothes after bath/shower. Day of surgery: We are located on the 6th floor of [facility]. Please take green Atrium elevators. Check in at the Registration Desk in the Same Day Surgery Waiting Area. Give medication as directed. ?? No makeup, no jewelry (including all body piercings) nail uzbek and no metal in hair. ?? Dress in clean comfortable clothes. No contact lens or removable dental retainers. ?? We may require a urine sample of your child. No tampons, must wear pad only. ?? If you have a special item such as stuffed animal, pillow or blanket please bring with you. ?? If you use a BIPAP,CPAP machine or glucometer machine, please bring it with you. ?? Please bring insurance cards and photo ID for any adult with you. ?? Park in the Main Garage across from the [facility]. ?? Check in at the Registration Desk on the 6th Floor in the Perioperative Area When you arrive for the procedure: ?? You will be registered and taken back to the pre-op room. We limit visitors to 2 at a time with the patient. We ask that you not bring other children with you. ?? An IV may be started prior to going to sleep. ?? A head to toe cleansing with antibacterial wipes may be completed while you are still awake. Please call [phone] if you have questions, concerns or are delayed on day of surgery. OR SPECIALIST documented in this encounter Plan of Treatment Not on file documented as of this encounter Procedures Procedure Name Priority Date/Time Associated Diagnosis Comments H. PYLORI UREASE SCREEN (LILA TEST) Routine 07/12/2021 12:14 PM SENIOR SPECIALIST SURGICAL PATHOLOGY Routine 07/12/2021 12:10 PM SENIOR SPECIALIST Hematochezia Abdominal pain, periumbilical Nausea and vomiting, intractability of vomiting not specified, unspecified vomiting type COLON BIOPSY 07/12/2021 11:59 AM SENIOR SPECIALIST Hematochezia Abdominal pain, periumbilical Nausea and vomiting, intractability of vomiting not specified, unspecified vomiting type ESOPHAGOGASTRODUODENOSCOPY BIOPSY 07/12/2021 11:59 AM SENIOR SPECIALIST Hematochezia Abdominal pain, periumbilical Nausea and vomiting, intractability of vomiting not specified, unspecified vomiting type EGD 07/12/2021 11:47 AM SENIOR SPECIALIST COLONOSCOPY 07/12/2021 11:45 AM SENIOR SPECIALIST HCG, URINE, QUALITATIVE Routine 07/12/20 10:47 AM SENIOR SPECIALIST documented in this encounter Results * H. pylori urease screen (LILA test) Tissue (07/12/2021 12:14 PM SENIOR SPECIALIST) H. pylori, rapid (LILA) Negative [facility] Comment: LILA is an acronym for 'Campylobacter like organisms'. ??The LILA is a test for urease activity, which is indicative of Helicobacter pylori. ??The presence of ??H. pylori is associated with gastritis and peptic ulcer disease. ??The LILA Test has a sensitivity of 95% and a specificity of 98% in the detection of H. pylori. ??Almost all patients with a positive LILA Test have histologic gastritis. ?? Current interpretive data was last revised on 17. Tissue 07/12/2021 12:1 4 PM SENIOR SPECIALIST 07/12/2021 1:16 PM SENIOR SPECIALIST us Hira Velasco MD PhD LAB MICROBIOLOGY - NERAL ORDERABLES Final Result [facility] Department [place] [address] * Surgical pathology (07/12/2021 12:10 PM SENIOR SPECIALIST) Tissue (Duodenum, Biopsy) 07/12/2021 12:10 PM SENIOR SPECIALIST Tissue (Antrum and/or Body) 07/12/2021 12:13 PM SENIOR SPECIALIST Tissue (Esophageal biopsy) 07/12/2021 12:16 PM SENIOR SPECIALIST Tissue (Ileum, Biopsy) 07/12/2021 12:32 PM SENIOR SPECIALIST Tissue (Colon, Biopsy) 07/12/2021 12:35 PM SENIOR SPECIALIST Tissue (Colon, Biopsy) 07/12/2021 12:36 PM SENIOR SPECIALIST Tissue (Colon, Biopsy) 07/12/2021 12:38 PM SENIOR SPECIALIST Narrative PATHOLOGY [facility] - 07/13/2021 2:21 PM SENIOR SPECIALIST EPIC results best viewed via link to PDF [facility] Esthela Caraballo [facility] [place] [address] Note to Patients: This report may contain a detailed description of human tissue sent by a health care provider to the laboratory for pathologic evaluation. The content of this report is essential for diagnosis and may provide important critical findings. This information may be unfamiliar to patients to review without a medical professional present. It is advised that the patient review this report in the presence of a health care provider who can answer questions and explain the details. [facility] FINAL Patient Name: ?? ROSALBA LI Gender: ??F : ??2005 (Age: 15) Address: ??[address] [place] [id number] Hospital #: ??[id number] Taken:07/12/2021 Received:07/12/2021 Reported: 07/13/2021 Patient Type: [facility] Same Day Surg ?? Service: Gastro [place] [facility] Physician(s): ??Unknown Doctor Ginger Alas M.D. MD Mare Paz MD Brian J. DeBosch, M.D. Diagnosis: A. ??Small intestine, duodenum, biopsy ? - [...] no evidence of cryptitis or crypt abscess jxs/07/13/2021 14:04 By this signature, I attest that the above diagnosis is based upon my personal examination of the slides(and/or other material indicated in the diagnosis). Oscar Theodore M.D. Report Electronically Reviewed and Signed Out By ??Oscar Theodore M.D. 07/13/2021 14:21:39 Microscopic Description and Comment: Microscopic examination substantiates the above cited diagnosis. Candido Luke M.D. History: The patient is a 15-year-old girl presenting abdominal pain, nausea, vomiting and hematochezia. ??Procedure: Upper GI endoscopy with biopsies. Specimen(s) Received: A: Deodenum B: Antrum C: Distal esophagus D: Terminal ileum E: Right colon F: Left colon G: Recto sigmoid colon Gross Description: The specimens are received in seven formalin filled containers each labeled with the patient's name. A. ??The first container is received labeled with duodenum and consists of two orozco-pink irregular fragment(s) of soft tissue measuring 0.2 x 0.2 x 0.1 cm each. ??Labeled A1. ??Jar 0. B. ??The second container is received labeled with antrum and consists of two orozco-pink irregular fragment(s) of soft tissue measuring 0.2 to 0.4 cm in length by 0.1 cm in diameter. ??Labeled B1. ??Jar 0. C. ??The third container is received labeled with distal esophagus and consists of multiple orozco-pink irregular fragment(s) of soft tissue measuring 0.3 x 0.2 x 0.1 cm in aggregate. ??Labeled C1. ??Jar 0. D. ??The fourth container is received labeled with terminal ileum and consists of three orozco-pink irregular fragment(s) of soft tissue measuring 0.6 x 0.2 x 0.1 cm each. ??Labeled D1. ??Jar 0. E. ??The fifth container is received labeled with right colon and consists of multiple orozco-pink irregular fragment(s) of soft tissue measuring 0.4 x 0.4 x 0.1 cm each. ??Labeled E1. ??Jar 0. F. ??The sixth container is received labeled with left colon and consists of three orozco-pink irregular fragment(s) of soft tissue measuring 0.2-0.4 cm in length by 0.1 cm in diameter. ??Labeled F1. ??Jar 0. G. ??The seventh container is received labeled with recto- sigmoid colon and consists of multiple orozco-pink irregular fragment(s) of soft tissue measuring 0.4 x 0.3 x 0.1 cm in aggregate. ??Labeled G1. ??Jar 0. [facility]/07/12/2021 16:25 PA(s): [place] By this signature, I attest that the above diagnosis is based upon my personal examination of the slides(and/or other material). Addenda/Procedures The performance characteristics of some immunohistochemical stains, fluorescence in-situ hybridization tests and immunophenotyping by flow cytometry cited in this report (if any) were determined by the Surgical Pathology and Flow Cytometry Departments at [facility] as part of an ongoing rn quality program and in compliance with federally mandated regulations drawn from the Clinical Laboratory Improvement Act of 1988 (CLIA '88). ??Some of these tests rely on the use of analyte specific reagents and are subject to specific labeling requirements by the US Food and Drug Administration. ??Such diagnostic tests may only be performed in a facility that is certified by the Department of Health and Human Services as a high complexity laboratory under CLIA '88. ??The FDA has determined that such clearance or approval is not necessary. ??This test is used for clinical purposes. ??It should not be regarded as investigational or for research. ??Nevertheless, federal rules concerning the medical use of analyte specific reagents require that the following disclaimer be attached to the report: This test was developed and its performance characteristics determined by the Surgical Pathology and Flow Cytometry Departments of [facility]. ??It has not been cleared or approved by the U. S. Food and Drug Administration. IMAGES AND SCANNED DOCUMENTS, IF INCLUDED, ONLY VIEWABLE IN PDF VERSION OF REPORT Ginger Alas MD LAB PATHOLOGY ORDERABL ES Final Result PATHOLOGY [facility] [phone] * EGD (07/12/2021 11:47 AM SENIOR SPECIALIST) Anatomical Region Laterality Modality Other Narrative Procedure Note Hira Velasco MD PhD - 07/12/2021 11:47 AM CST [facility] Patient Name: Rosalba Li Procedure Date: 07/12/2021 11:47AM Date of : 2005 Admit Type: Outpatient Age: 15 Gender: Female Attending MD: Hira Velasco MD,PHD Procedure: Pediatric Upper GI Endoscopy Providers: Hira Velasco MD, PHD (Doctor), Ginger Santiago, Fellow (Fellow), Phill Benitez, middle school science teacher (Nurse), Maria Ines Dennis RN (Nurse), María Arnett M.D. (Automotive Drivability Technician), Joan Olea CRNA (Automotive Drivability Technician) Referring MD: Jabari Bynum M.D. (Referring MD) Requesting Provider: Mare Caceres M.D. (Requesting Physician) Indications: Lower abdominal pain, Diarrhea Medicines: General Anesthesia without ET Tube Procedure: The risk and benefits of the procedure and the sedation options and risks were discussed with the patient and caregiver(s). All questions were answered and informed consent was obtained. Patientidentification and proposed procedure were verified prior to the procedure by the physician, the nurse and the combination worker. The time out was done inthe room prior to the start of the procedure. After I obtained informed consent, the scope was passed under direct vision. Throughout the procedure, the patient's blood pressure, pulse, and oxygensaturations were monitored continuously by anesthesia. [id number] #[id number] upper endoscope was introduced through the mouth, and advanced to thesecond part of duodenum. The upper GI endoscopy was accomplished without difficulty. The patient tolerated the procedure well. Findings: The examined esophagus was normal. Biopsies were taken with a cold forceps for histology. The entire examined stomach was normal. Biopsies were taken with acold forceps for histology. Biopsies were taken with a cold forceps for Helicobacter pylori testing using CLOtest. The examined duodenum was normal. Impression: - Normal esophagus. Biopsied. - Normal stomach. Biopsied. - Normal examined duodenum. Estimated Blood Loss: Estimated blood loss: none. Complications: No immediate complications. Recommendation: - Discharge patient to home with caregiver(s). -Await pathology results -Follow up to be determined at later date. -Patient has a contact number available for emergencies. The signs and symptoms of potential delayed complications were discussed with thepatient. Return to normal activities tomorrow. Written discharge instructions were provided to the patient/caregiver(s). No aspirin, ibuprofen, naproxen, or other non-steroidal anti-inflammatory drugs for 7 days. Procedure code(s): 07/12/2021 11:47:00 AM Attending Participation: I was present and participated during the entire procedure, including non-khan portions. Hira Velasco MD, PHD 07/12/2021 12:19:52 PM By signing this report, I certify that I, the attending physician,personally performed or supervised the procedure reported above and was physicallypresent during the entire procedure. Ginger Alas, Lv Number of Addenda: 0 Note Initiated On: 07/12/2021 11:47 AM us Hira Velasco MD PhD ENDOSCOPY PROCEDURES Final Result * COLONOSCOPY (07/12/2021 11:45 AM SENIOR SPECIALIST) Anatomical Region Laterality Modality Other Narrative Procedure Note Hira Velasco MD PhD - 07/12/2021 11:45 AM CST [facility] Patient Name: Rosalba Li Procedure Date: 07/12/2021 11:45AM Date of : 2005 Admit Type: Outpatient Age: 15 Gender: Female Attending MD: Hira Velasco MD,PHD Procedure: Pediatric Colonoscopy Providers: Hira Velasco MD, PHD (Doctor), Ginger Santiago, Fellow (Fellow), Phill Benitez, middle school science teacher (Nurse), Maria Ines Dennis RN (Nurse), María Arnett M.D. (Automotive Drivability Technician), Joan Olea CRNA (Automotive Drivability Technician) Referring MD: Jabari Bynum M.D. (Referring MD) Requesting Provider: Mare Caceres M.D. (Requesting Physician) Indications: Lower abdominal pain, Diarrhea Medicines: General Anesthesia without ET Tube Procedure: The risk and benefits of the procedure and the sedation options and risks were discussed with the patient and caregiver(s). All questions were answered and informed consent was obtained. Patientidentification and proposed procedure were verified prior to the procedure by the physician, the nurse and the combination worker. The time out was done inthe room prior to starting the procedure. After I obtained informedconsent, the scope was passed under direct vision. Throughout the procedure,the patient's blood pressure, pulse, and oxygen saturations weremonitored continuously by anesthesia. PCF [id number] #[id number] pediatric colonoscopewas introduced through the anus and advanced to the terminal ileum. The colonoscopy was performed without difficulty. The patient toleratedthe procedure well. The quality of the bowel preparation was good. Findings: Discontinuous areas of nonbleeding ulcerated mucosa with stigmata of recent bleeding were present in the recto-sigmoid and descendingcolon. Biopsies were taken with a cold forceps for histology. The terminal ileum appeared normal. Biopsies were taken with a cold forceps for histology. Impression: - Mucosal ulceration. Biopsied. - The examined portion of the ileum was normal. Biopsied. Estimated Blood Loss: Estimated blood loss: none. Complications: No immediate complications. Recommendation: - Discharge patient to home with caregiver(s). -Await pathology results -Follow up to be determined at later date. -Patient has a contact number available for emergencies. The signs and symptoms of potential delayed complications were discussed with thepatient. Return to normal activities tomorrow. Written discharge instructions were provided to the patient/caregiver(s). No aspirin, ibuprofen, naproxen, or other non-steroidal anti-inflammatory drugs for 7 days. - Repeat colonoscopy. Procedure code(s): 07/12/2021 11:45:06 AM Attending Participation: I was present and participated during the entire procedure, including non-khan portions. Hira Velasco MD, PHD 07/12/2021 12:39:54 PM By signing this report, I certify that I, the attending physician,personally performed or supervised the procedure reported above and was physicallypresent during the entire procedure. Ginger Alas, Fellow Number of Addenda: 0 Note Initiated On: 07/12/2021 11:45 AM Hira Velasco MD PhD ENDOSCOPY PROCEDURES Final Result * hCG, urine, qualitative (07/12/2021 10:47 AM SENIOR SPECIALIST) HCG, ur Negative Negative [facility] Urine 07/12/2021 10:4 7 AM SENIOR SPECIALIST 07/12/2021 10:53 AM SENIOR SPECIALIST Rusty Thompson NP LAB URINE ORDERABLES Final R esult [facility] Department [place] [address] documented in this encounter Visit Diagnoses Diagnosis Hematochezia Blood in stool Abdominal pain, periumbilical Abdominal pain, periumbilic Nausea and vomiting, intractability of vomiting not specified, unspecified vomiting type Nausea and vomiting Nausea with vomiting Hematochezia Blood in stool Abdominal pain, periumbilical Abdominal pain, periumbilic Nausea and vomiting, intractability of vomiting not specified, unspecified vomiting type documented in this encounter Admitting Diagnoses Diagnosis Hematochezia Blood in stool Abdominal pain, periumbilical Abdominal pain, periumbilic Nausea and vomiting Nausea with vomiting documented in this encounter Administered Medications Inactive Administered Medications - up to 3 most recent administrations Medication Order MAR Action Action Date Dose Rate Site Lactated Ringer's (LR) infusion 120 mL/hr, intravenous, Continuous, Starting on Mon07/12/21 at 1315, For 6 hours, Phase I Restarted 07/12/2021 12:50 PM SENIOR SPECIALIST 120 mL/hr 120 mL/hr lidocaine 1% buffered injection 0.1 mL 0.1 mL, subcutaneous, As needed, other, IV insertion, Starting on Mon07/12/21 at 1044, Pre-Op, Maximum daily dose 0.1 mL/kg Administer immediately prior to procedure. Given 07/12/2021 11:38 AM SENIOR SPECIALIST 0.1 mL Other (Comment) documented in this encounter Discontinued Medications Medication Sig Discontinue Reason Start Date End Da te xiutdmactyqkj-efsdkin-n affeine (EXCEDRIN MIGRAINE) 250-250-65 mg per tabletIndications:Chron ic intractable headache, unspecified headache type Take 2 tablets by mouth every 8 (eight) hours as needed for headaches Therapy completed 09/04/2020 07/05/2021 documented as of this encounter Active and Recently Administered Medications Times are shown in SENIOR SPECIALIST. Continuous Medication Order 07/10/2021 07/11/2021 07/12/2021 Lactated Ringer's (LR) infusion 120 mL/hr, intravenous, Continuous, Starting on Mon07/12/21 at 1315, For 6 hours, Phase I 1250 (Restarted - Pr ovider: Jeniffer Araujo RN)1309 (Handoff - Provider: Jeniffer Araujo RN)1318 (Stopped - Provider: Abbey Avalos RN) PRN Medication Order 07/10/2021 07/11/2021 07/12/2021 lidocaine 1% buffered injection 0.1 mL (CANCELED) 0.1 mL, subcutaneous, As needed, other, IV insertion, Starting on Mon07/12/21 at 1044, Pre-Op, Maximum daily dose 0.1 mL/kg Administer immediately prior to procedure. 1138 (Given - Provid er: Freya Brown RN) documented in this encounter Orders Medications Ordered That Finn ht Not Have Been Administered Count Last Ordered Date First Ordered Date lidocaine 1% buffered injection 0.1 mL 1 Diet Count Last Ordered Date First Orde red Date PEDIATRIC DISCHARGE DIET 1 07/12/2021 Nursing Count Last Ordered Date First Orde red Date DISCHARGE ACTIVITY 1 07/12/2021 DISCHARGE CALL PROVIDER 1 07/12/2021 DISCHARGE INSTRUCTIONS 1 07/12/2021 documented in this encounter Care Teams Mission Assessment Specialist Relationship Specialty Start Date End Date Jabari Bynum MD PCP - General 07/01/20 documented as of this encounter
--- OUTSIDE RECORDS SUMMARY | 2024-08-31 21:58 | XMS_ITS | Encounter Summary ---
Author Organization [facility] Medical Group Address [address] [place] [address] Care Team Providers Care Resort Host Name Role Phone Jabari Bynum MD Primary Care Provider Reason for Visit * Reason Comments Pre-op Exam COVID pre op Encounter Details Date Type Department Care Team (Latest Contact Info) Description 07/09/2021 3:30 PM DIRECTOR PATIENT FINANCIAL SERVICES Clinical Support [address] [phone] Preop testing (Primary Dx) Social History Tobacco Use Types [...] file Legal Sex Female 3:14 AM DIRECTOR PATIENT FINANCIAL SERVICES Gender Identity Not on file Sexual Orientation Not on file documented as of this encounter Progress Notes * Otoniel Barajas MA - 07/09/2021 3:30 PM CST Patient presents today for pre procedure COVID-19 test. Scheduled for a procedure on 07/12/2021. N95 mask, gown, gloves, and eye protection worn during swab collection. Patient instructed to self-isolate from time of swab collection until scheduled surgery. CTOR PATIENT FINANCIAL SERVICES documented in this encounter Plan of Treatment Not on file documented as of this encounter Results * COVID-19 Coronavirus RNA Nasopharyngeal (07/09/2021 3:31 PM DIRECTOR PATIENT FINANCIAL SERVICES) COVID-19 RNA Not Detected CERNER Comment: Interpretive Data Synonyms for this test include: PCR and NAAT . ??Testing performed by the [facility] Molecular Infectious Disease Laboratory. The 2018-Novel Coronavirus [...] on October 01, 2020. Testing performed by: [facility], [address] [place] [address], [id number] Employeed in healthcare? No CERNER CH Comment:Testing performed by : [facility], [address] [place] [address]., [id number] status? No CERNER CH Comment:Testing performed by : [facility], [address] [place] [address], [id number] Group care resident? No CERNER CH Comment:Testing performed by : [facility], [address] [place] [address], [id number] Hospitalized? No CERNER CH Comment:Testing performed by : [facility], [address] [place] [address], [id number] Is patient in ICU? No CERNER CH Comment:Testing performed by : [address], [id number] Symptomatic as defined by CDC? No CERNER CH Comment:Testing performed by : [facility], [address] [place] [address], [id number] Nasopharyngeal 07/09/2021 3: 31 PM DIRECTOR PATIENT FINANCIAL SERVICES 07/10/2021 12:54 AM DIRECTOR PATIENT FINANCIAL SERVICES Narrative SUPRIYA CANALES - 07/10/2021 1:11 PM DIRECTOR PATIENT FINANCIAL SERVICES What is the reason for testing?->Screening prior to scheduled procedure or surgery (batch) Hira Thao MD PhD LAB MICROBIOLOGY - GE NERAL ORDERABLES Final Result SUPRIYA [id number] [address] Department [place] [address] documented in this encounter Visit Diagnoses Diagnosis Preop testing- Primary Unspecified pre-operative examination Preop testing Unspecified pre-operative examination documented in this encounter Care Teams Resort Host Relationship Specialty Start Date End Date Jabari Bynum MD PCP - General 07/01/20 documented as of this encounter
--- OUTSIDE RECORDS SUMMARY | 2024-08-31 21:58 | XMS_ITS | Encounter Summary ---
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 She states understanding. * Telephone Encounter - Eunice Cyr MA - 05/05/2023 1:37 PM CDT ----- Message from Tanesha Sood NP sent at 05/05/2023 1:34 PM CDT ----- Please call patient and let her know that her RSV, influenza, and COVID were negative documented in this encounter Plan of Treatment Not on file documented as of this encounter Visit Diagnoses Not on filedocumented in this encounter Care Teams Tissue Technician Relationship Specialty Start Date End Date Jabari Bynum MD PCP - General 07/01/20 documented as of this encounter
--- OUTSIDE RECORDS SUMMARY | 2024-08-31 21:58 | XMS_ITS | Encounter Summary ---
Author Organization [facility] Medical Group Address [address] [facility] [address] [place] [address] Care Team Providers Care Extrusion Engineer Name Role Phone Jabari Bynum MD Primary Care Provider Reason for Visit * Reason Comments Sore Throat A LOT OF DRAINAGE. P atient concerned with influenza Encounter Details Date Type Department Care Team (Late st Contact Info) Description 08/24/2022 7:00 PM TAPER OPERATOR Office Visit [facility] [address] [facility] [place] [address] [place] [phone] Hortensia Cristina, VP [employer] [address] [place] [address] Nausea and vomiting, unspecified vomiting type (Primary Dx); Sore throat; Acute viral syndrome Social History Tobacco Use Types Packs/Day Years [...] on file Legal Sex Female 3:14 AM TAPER OPERATOR Gender Identity Not on file Sexual Orientation Not on file documented as of this encounter Last Filed Vital Signs Vital Sign Reading Time Taken Comments Blood Pressure 118/78 08/24/2022 6:57 PM TAPER OPERATOR Pulse 85 08/24/2022 6:57 PM TAPER OPERATOR Temperature 37 ??C (98.6 ??F) 08/24/2022 6:57 PM TAPER OPERATOR Respiratory Rate 16 08/24/2022 6:57 PM TAPER OPERATOR Oxygen Saturation 99% 08/24/2022 6:57 PM TAPER OPERATOR Inhaled Oxygen Concentration - - Weight 61.2 kg (135 lb) 08/24/2022 6:57 PM TAPER OPERATOR Height 156.2 cm (5' 1.5 ) 08/24/2022 6:57 PM TAPER OPERATOR Body Mass Index 25.09 08/24/2022 6:57 PM TAPER OPERATOR documented in this encounter Patient Instructions * Patient Instructions* Hortensia Cristina NP - 08/24/2022 7:00 PM TAPER OPERATOR No antibiotic is needed, likely viral. For sore throat -Cepacol lozenges or Chloroseptic spray Salt water gargles Discussed OTC decongestants for congestion and drainage--Mucinex Motrin/Tylenol for pain/fever Discussed hydration-Drink plenty of water & get plenty of rest A humidifier may also help with congestion Saline nasal spray in canister can provide cleansing of nasal passages and some relief of congestion. Zofran ordered for N/V-- start back on liquidy soft non-fatty foods Follow up with your PCP in 3-5 days if you are not getting better R OPERATOR documented in this encounter Ordered Prescriptions Prescription Sig Dispense Quantity Refills Last Filled Start Date End Date ondansetron ODT (ZOFRAN-ODT) 4 mg disintegrating tabletIndications:Na usea and vomiting, unspecified vomiting type Take 1 tablet (4 mg total) by mouth every 8 (eight) hours as needed for nausea or vomiting 20 tablet 08/24/2022 documented in this encounter Progress Notes * Hortensia Cristina NP - 08/24/2022 7:00 PM CST Images from the original note were not included. Subjective/Objective Patient ID: Rosalba So is a 17 y.o. female. Chief Complaint Sore Throat (A LOT OF DRAINAGE. Patient concerned with influenza) She notes sore throat with a lot of drainage. Trying Tylenol and Dayquil with some relief. Nausea and vomiting -unable to eat solid foods for 4 days. Review of Systems Constitutional: Positive for appetite change and fever (up to 101.2). Negative for fatigue. HENT: Positive for sinus pressure and sore throat. Negative for congestion. Respiratory: Positive for cough (productive) and shortness of breath (with cough-mild). Negative for chest tightness. Cardiovascular: Negative for chest pain. Gastrointestinal: Positive for nausea and vomiting. Negative for abdominal pain and diarrhea. Skin: Negative for color change. Neurological: Positive for headaches. Negative for dizziness. Hematological: Negative for adenopathy. Psychiatric/Behavioral: Negative for confusion. Physical Exam HENT: Right Ear: Tympanic membrane normal. Left Ear: Tympanic membrane normal. Nose: No congestion or rhinorrhea. Mouth/Throat: Pharynx: Posterior oropharyngeal erythema present. No oropharyngeal exudate. Tonsils: No tonsillar exudate or tonsillar abscesses. 0 on the right. 0 on the left. Eyes: Conjunctiva/sclera: Conjunctivae normal. Cardiovascular: Rate and Rhythm: Regular rhythm. Heart sounds: Normal heart sounds. Pulmonary: Effort: No respiratory distress. Breath sounds: No wheezing, rhonchi or rales. Abdominal: Palpations: Abdomen is soft. Lymphadenopathy: Cervical: No cervical adenopathy. Skin: Findings: No rash. Neurological: Mental Status: She is alert. Psychiatric: Behavior: Behavior normal. Vitals: 08/24/22 1857 BP: 118/78 Pulse: 85 Resp: 16 Temp: 37 ??C (98.6 ??F) TempSrc: Oral SpO2: 99% Weight: 61.2 kg (135 lb) Height: 156.2 cm (5' 1.5 ) Assessment/Plan No antibiotic is needed, likely viral. For sore throat -Cepacol lozenges or Chloroseptic spray Salt water gargles Discussed OTC decongestants for congestion and drainage--Mucinex Motrin/Tylenol for pain/fever Discussed hydration-Drink plenty of water & get plenty of rest A humidifier may also help with congestion Saline nasal spray in canister can provide cleansing of nasal passages and some relief of congestion. Zofrgeo ordered for N/V-- start back on liquidy soft non-fatty foods Follow up with your PCP in 3-5 days if you are not getting better Diagnoses and all orders for this visit: Nausea and vomiting, unspecified vomiting type (Primary) - ondansetron ODT (ZOFRAN-ODT) 4 mg disintegrating tablet; Take 1 tablet (4 mg total) by mouth every 8 (eight) hours as needed for nausea or vomiting Sore throat - POCT rapid strep A - POC Influenza A/B, COVID-19 antigen Acute viral syndrome Disposition- Discussed medications dosages, usage & potential side effects. Risks and interactions reviewed with patient. Indications for testing reviewed. Patient has been instructed to follow up w PCP or go to ER for any signs or symptoms that are of concern or worsening. Patient verbalizes understanding. The patient was given the opportunity to ask all questions and to have all questions answered. Patient is in agreement with the plan of care Hortensia Cristina NP R OPERATOR documented in this encounter Plan of Treatment Not on file documented as of this encounter Procedures Procedure Name Priority Date/Time Associated Diagnosis Comments POC INFLUENZA A/B, COVID-19 ANTIGEN Routine 08/24/2022 7:21 PM TAPER OPERATOR Sore throat POCT RAPID STREP Routine 08/24/2022 7:21 PM TAPER OPERATOR Sore throat documented in this encounter Results * POC Influenza A/B, COVID-19 antigen (08/24/2022 7:21 PM TAPER OPERATOR) Influenza A Ag, POC Negative Negative [facility] Influenza B Ag, POC Negative Negative [facility] COVID-19 Ag POC Presumptive Negative Presumptive Negative, Invalid [facility] Nasal 08/24/2022 7:21 PM TAPER OPERATOR us Hortensia Cristina NP POINT OF CARE TEST ORDERABLES Final Result [facility] [address] [place] [address] * POCT rapid strep A (08/24/2022 7:21 PM TAPER OPERATOR) Rapid Strep A, POC Negative Swab 08/24/2022 7:21 PM TAPER OPERATOR Hortensia Cristina VP [employer] POINT OF CARE TEST ORDERABLES Final Result documented in this encounter Visit Diagnoses Diagnosis Nausea and vomiting, unspecified vomiting type- Primary Sore throat Acute pharyngitis Acute viral syndrome documented in this encounter Historical Medications * This list may reflect changes made after this encounter. buPROPion XL (WELLBUTRIN XL) 150 mg 24 hr tablet Take 1 tablet (150 mg total) by mouth daily 07/29/2022 added in this encounter Additional Health Concerns Infection Onset Date Last Indicated Resolved Time COVID: Suspected 08/24/2022 08/24/2022 08/24/2022 7:22 PM TAPER OPERATOR documented as of this encounter Care Teams Extrusion Engineer Relationship Specialty Start Date End Date Jabari Bynum MD PCP - General 07/01/20 documented as of this encounter
--- OUTSIDE RECORDS SUMMARY | 2024-08-31 21:58 | XMS_ITS | Encounter Summary ---
Author Organization [facility] Address [address] [facility] [address] [place] [address] Care Team Providers Care Unhairing Machine Operator Name Role Phone Jabari Bynum MD Primary Care Provider Reason for Visit * Reason Onset Date Comments Test Results 07/31/2021 Encounter Details Date Type Department Care Team (Late st Contact Info) Description 07/31/2021 Telephone [facility] [place] [address] [place] [address] Otoniel Barajas MA Test Results Social History Tobacco Use Types Packs/Day Years [...] on file Legal Sex Female 3:14 AM NEIGHBORHOOD AIDE Gender Identity Not on file Sexual Orientation Not on file documented as of this encounter Miscellaneous Notes * Telephone Encounter - Otoniel Barajas MA - 07/31/2021 5:03 PM CST Patient mother (on patients HIPAA) is aware of negative throat culture results and has no further questions at this time. HBORHOOD AIDE * Telephone Encounter - Otoniel Barajas MA - 07/31/2021 5:03 PM CST ----- Message from Kailee Moreno NP sent at 07/31/2021 5:02 PM NEIGHBORHOOD AIDE ----- Disregard covid note, [facility] cc pool, please inform patient of negative throat culture report. Follow up with PCP if symptoms persist. HBORHOOD AIDE documented in this encounter Plan of Treatment Not on file documented as of this encounter Visit Diagnoses Not on filedocumented in this encounter Care Teams Unhairing Machine Operator Relationship Specialty Start Date End Date Jabari Bynum MD PCP - General 07/01/20 documented as of this encounter
--- OUTSIDE RECORDS SUMMARY | 2024-08-31 21:58 | XMS_ITS | Encounter Summary ---
Author Organization [facility] Healthcare Address [address] [place] [address] Care Team Providers Care Upsetter Name Role Phone Jabari Bynum MD Primary Care Provider Encounter Details Date Type Department Care Team (Late st Contact Info) Description 07/09/2021 7:20 PM MOTOR VEHICLE EMISSIONS INSPECTOR Lab [address] [address] Preop testing Social History Tobacco Use Types Packs/Day Years [...] on file Legal Sex Female 3:14 AM MOTOR VEHICLE EMISSIONS INSPECTOR Gender Identity Not on file Sexual Orientation Not on file documented as of this encounter Plan of Treatment Not on file documented as of this encounter Procedures Procedure Name Priority Date/Time Associated Diagnosis Comments COVID-19 CORONAVIRUS RNA Routine 07/09/2021 3:31 PM MOTOR VEHICLE EMISSIONS INSPECTOR Preop testing documented in this encounter Results * COVID-19 Coronavirus RNA Nasopharyngeal (07/09/2021 3:31 PM MOTOR VEHICLE EMISSIONS INSPECTOR) COVID-19 RNA Not Detected SUPR[facility] CANALES Comment: Interpretive Data Synonyms for this test include: PCR and NAAT . ??Testing performed by the [facility] Molecular Infectious Disease Laboratory. The 2019-Novel Coronavirus [...] on October 01, 2020. Testing performed by: [facility], [address] [facility], [address] Employeed in healthcare? No SUPRIYA Comment:Testing performed by : [facility], [address] [place] [address], [address] status? No MAKINER Comment:Testing performed by : [facility], [address] [place] [address], [id number] Group care resident? No MAKINER Comment:Testing performed by : [facility], [address] [place] [address], [id number] Hospitalized? No CERNER Comment:Testing performed by : [facility], [address] [facility], [address] Is patient in ICU? No MAKINER Comment:Testing performed by : [facility], [address] [place] [address], [address] Symptomatic as defined by CDC? No SUPRIYA Comment:Testing performed by : [facility], [address] [place] [address], [address] Nasopharyngeal 07/09/2021 3: 31 PM MOTOR VEHICLE EMISSIONS INSPECTOR 07/10/2021 12:54 AM MOTOR VEHICLE EMISSIONS INSPECTOR Narrative SUPRIYA - 07/10/2021 1:11 PM MOTOR VEHICLE EMISSIONS INSPECTOR What is the reason for testing?->Screening prior to scheduled procedure or surgery (batch) us Hira Thao MD PhD LAB MICROBIOLOGY - [facility] ORDERABLES Final Result SUPRIYA CANALES [address] [place] [address] documented in this encounter Visit Diagnoses Diagnosis Preop testing Unspecified pre-operative examination documented in this encounter Care Teams Upsetter Relationship Specialty Start Date End Date Jabari Bynum MD PCP - General 07/01/20 documented as of this encounter
--- OUTSIDE RECORDS SUMMARY | 2024-08-31 21:58 | XMS_ITS | Encounter Summary ---
Author Organization [facility] Address [address] [place] [address] Phone Care Team Providers Care Process Safety Manager Name Role Phone Jabari Bynum MD Primary Care Provider Encounter Details Date Type Department Care Team (Late st Contact Info) Description 07/21/2021 Telephone [facility] Pediatric Gastroenterology [facility] 2nd [place] [address] [place] [phone] Mare Caceres MD [address] [place] [address] [address] [place], [place] [id number] Social History Tobacco Use Types Packs/Day Years [...] on file Legal Sex Female 3:14 AM INTERTYPE OPERATOR Gender Identity Not on file Sexual Orientation Not on file documented as of this encounter Miscellaneous Notes * Telephone Encounter - Guilherme Maynard - 07/28/2021 12:47 PM INTERTYPE OPERATOR I spoke to mom and I scheduled Rosalba to see [facility] on 09-16-21 at 9:00 am in [place]. RTYPE OPERATOR * Telephone Encounter - Guilherme Maynard - 07/21/2021 1:23 PM CST LVM to schedule 6 week f/u w/ TRACK MAN. RTYPE OPERATOR * Telephone Encounter - Guilherme Maynard - 07/21/2021 1:23 PM CST ----- Message from Jacey Flannery RN sent at 07/21/2021 10:56 AM INTERTYPE OPERATOR ----- Needs PNP follow up in 6 weeks RTYPE OPERATOR documented in this encounter Plan of Treatment Not on file documented as of this encounter Visit Diagnoses Not on filedocumented in this encounter Care Teams Process Safety Manager Relationship Specialty Start Date End Date Jabari Bynum MD PCP - General 07/01/20 documented as of this encounter
--- OUTSIDE RECORDS SUMMARY | 2024-08-31 21:58 | XMS_ITS | Encounter Summary ---
Author Organization [facility] Healthcare Address [address] [place] [address] Care Team Providers Care Radiology Nurse Name Role Phone Jabari Bynum MD Primary Care Provider Encounter Details Date Type Department Care Team (Latest Contact Info) Description 07/12/2021 9:54 AM PRICE CLERK - 07/12/2021 1:40 PM PRICE CLERK Hospital Encounter [facility] [place] [address] [place] [address] Hira Velasco MD PhD [address] [facility] [id number] [place] [address] Hematochezia; Abdominal pain, periumbilical; Nausea and vomiting, intractability of vomiting not specified, unspecified vomiting type Discharge Disposition: Discharge to home or self [...] on file Legal Sex Female 3:14 AM PRICE CLERK Gender Identity Not on file Sexual Orientation Not on file documented as of this encounter Last Filed Vital Signs Vital Sign Reading Time Taken Comments Blood Pressure 110/64 07/12/2021 1:18 PM PRICE CLERK Pulse 76 07/12/2021 1:40 PM PRICE CLERK Temperature 36.3 ??C (97.3 ??F) 07/12/2021 1:40 PM CS T Respiratory Rate 20 07/12/2021 1:40 PM PRICE CLERK Oxygen Saturation 98% 07/12/2021 1:40 PM PRICE CLERK Inhaled Oxygen Concentration - - Weight 80.2 kg (176 lb 12.9 oz) 021 10:40 AM PRICE CLERK Height 156 cm (5' 1.42 ) 07/12/2021 10: 40 AM PRICE CLERK Body Mass Index 32.96 07/12/2021 10:40 AM PRICE CLERK Body Mass Index Percentile 96.46% 07/12 10:40 AM PRICE CLERK Growth Chart: [facility] (Girls, 2- 20 Years) documented in this encounter Discharge Diagnoses Diagnosis Ulcer of intestine - ULCER OF INTESTINE Lower abdominal pain, unspecified - LOWER ABDOMINAL PAIN, UNSPECIFIED Diarrhea, unspecified - DIARRHEA, UNSPECIFIED Gastro-esophageal reflux disease without esophagitis - GASTRO-ESOPHAGEAL REFLUX DISEASE WITHOUT ESOPHAGITIS Post-traumatic stress disorder, unspecified - POST-TRAUMATIC STRESS DISORDER, UNSPECIFIED Migraine, unspecified, not intractable, without status migrainosus - MIGRAINE, UNSPECIFIED, NOT INTRACTABLE, WITHOUT STATUS MIGRAINOSUS Depression, unspecified - DEPRESSION, UNSPECIFIED Personal history of COVID-19 - PERSONAL HISTORY OF COVID-19 Anxiety disorder, unspecified - ANXIETY DISORDER, UNSPECIFIED Other intermission coordinator (current) drug therapy - OTHER DIRECTOR OF INCOME TAX (CURRENT) DRUG THERAPY documented in this encounter Discharge Instructions * Discharge Instructions* Jeniffer Araujo RN - 07/12/2021 1:00 PM PRICE CLERK Discharge Instructions for Children Receiving Anesthesia Although [...] and weekends) ask for the Anesthesia Physician salon assistant ?? If your child is vomiting more [...] instructions. Thank you for choosing [facility]! E CLERK documented in this encounter Medications at Time [...] Velasco MD PhD at 07/14/2021 2:15 PM PRICE CLERK E CLERK E CLERK Associated attestation - Hira Velasco MD PhD - 07/14/2021 2:15 PM PRICE CLERK *I have seen and examined the patient on 07/12/2021. I agree with the findings and plan of care as documented in the resident's/fellow's note.. Hira Velasco MD PhD Source Note - Rusty Thompson NP - 07/12/2021 11:01 AM PRICE CLERK Images from the original note were not [...] for requested labs within last 720 hours. E CLERK documented in this encounter Procedure Notes * Hira Velasco MD PhD - 07/12/2021 11:47 AM CSTAssociated Order(s): EGD [facility] Patient Name: Rosalba Li Procedure Date: 07/12/2021 11:47 AM Date of : 2005 Admit Type: Outpatient Age: 15 Gender: Female Attending MD: Hira Velasco MD, PHD Procedure: Pediatric Upper GI Endoscopy Providers: Hira Velasco MD, PHD (Doctor), Ginger Alas, Fellow (Fellow), Phill Benitez, band saw marker (Nurse), Maria Ines Dennis RN (Nurse), María Hernandez M.D. (Barrel Lathe Operator Inside), Joan Olea CRNA (Barrel Lathe Operator Inside) Referring MD: Jabari Bynum M.D. (Referring MD) [...] by the physician, the nurse and the loan documents closer. The time out was done in the room prior to the start of the procedure. After I obtained informed consent, the scope was passed under direct vision. Throughout the procedure, the patient's blood pressure, pulse, and oxygen saturations were monitored continuously by anesthesia. GIF-H190 #[id number] upper endoscope was introduced through the mouth, [...] 0 Note Initiated On: 07/12/2021 11:47 AM E CLERK * Hira Velasco MD PhD - 07/12/2021 11:45 AM CSTAssociated Order(s): COLONOSCOPY [facility] Patient Name: Rosalba Li Procedure Date: 07/12/2021 11:45 AM Date of : 2005 Admit Type: Outpatient Age: 15 Gender: Female Attending MD: Hira Velasco MD, PHD Procedure: Pediatric Colonoscopy Providers: Hira Velasco MD, PHD (Doctor), Ginger Alas, Fellow (Fellow), Phill Benitez, band saw marker (Nurse), Maria Ines Dennis RN (Nurse), María Hernandez M.D. (Barrel Lathe Operator Inside), Joan Olea CRNA (Barrel Lathe Operator Inside) Referring MD: Jabari Bynum M.D. (Referring MD) [...] by the physician, the nurse and the loan documents closer. The time out was done in the room prior to starting the procedure. After I obtained informed consent, the scope was passed under direct vision. Throughout the procedure, the patient's blood pressure, pulse, and oxygen saturations were monitored continuously by anesthesia. [facility] H190L #[id number] pediatric colonoscope was introduced through the anus [...] present during the entire procedure. Ginger Alas, Lv Number of Addenda: 0 Note Initiated On: 07/12/2021 11:45 AM E CLERK documented in this encounter Miscellaneous Notes * Pre-Procedure Instructions - Lyly Sam RN - 07/09/2021 2:56 PM CST We are pleased that you and your doctor have chosen [facility] for this surgery. We hope that the [...] are located on the 6th floor of [facility]. Please take green Atrium elevators. Check in at the Registration Desk in the Same Day Surgery Waiting Area. Give medication as directed. ?? No makeup, no jewelry (including all body piercings) nail senegalese and no metal in hair. ?? Dress [...] while you are still awake. Please call [phone] if you have questions, concerns or are delayed on day of surgery. E CLERK * Pre-Procedure Instructions - Lyly Sam RN - 07/09/2021 10:56 AM CST We are pleased that you and your doctor have chosen [facility] for this surgery. We hope that the [...] are located on the 6th floor of [facility]. Please take green Atrium elevators. Check in at the Registration Desk in the Same Day Surgery Waiting Area. Give medication as directed. ?? No makeup, no jewelry (including all body piercings) nail senegalese and no metal in hair. ?? Dress [...] in the Main Garage across from the [facility] hospital. ?? Check in at the [...] while you are still awake. Please call [phone] if you have questions, concerns or are delayed on day of surgery. E CLERK documented in this encounter Plan of Treatment Not on file documented as of this encounter Procedures Procedure Name Priority Date/Time Associated Diagnosis Comments H. PYLORI UREASE SCREEN (LILA TEST) Routine 07/12/2021 12:14 PM PRICE CLERK SURGICAL PATHOLOGY Routine 07/12/2021 12:10 PM PRICE CLERK Hematochezia Abdominal pain, periumbilical Nausea and vomiting, intractability of vomiting not specified, unspecified vomiting type COLON BIOPSY 07/12/2021 11:59 AM PRICE CLERK Hematochezia Abdominal pain, periumbilical Nausea and vomiting, intractability of vomiting not specified, unspecified vomiting type ESOPHAGOGASTRODUODENOSCOPY BIOPSY 07/12/2021 11:59 AM PRICE CLERK Hematochezia Abdominal pain, periumbilical Nausea and vomiting, intractability of vomiting not specified, unspecified vomiting type EGD 07/12/2021 11:47 AM PRICE CLERK COLONOSCOPY 07/12/2021 11:45 AM PRICE CLERK HCG, URINE, QUALITATIVE Routine 07/12/20 10:47 AM PRICE CLERK documented in this encounter Results * H. pylori urease screen (LILA test) Tissue (07/12/2021 12:14 PM PRICE CLERK) H. pylori, rapid (LILA) Negative [facility] Comment: LILA is an acronym for 'Campylobacter [...] on 15. Tissue 07/12/2021 12:1 4 PM PRICE CLERK 07/12/2021 1:16 PM PRICE CLERK us Hira Velasco MD PhD LAB MICROBIOLOGY - [facility] ORDERABLES Final Result [facility] Department [place] [address] * Surgical pathology (07/12/2021 12:10 PM PRICE CLERK) Tissue (Duodenum, Biopsy) 07/12/2021 12:10 PM PRICE CLERK Tissue (Antrum and/or Body) 07/12/2021 12:13 PM PRICE CLERK Tissue (Esophageal biopsy) 07/12/2021 12:16 PM PRICE CLERK Tissue (Ileum, Biopsy) 07/12/2021 12:32 PM PRICE CLERK Tissue (Colon, Biopsy) 07/12/2021 12:35 PM PRICE CLERK Tissue (Colon, Biopsy) 07/12/2021 12:36 PM PRICE CLERK Tissue (Colon, Biopsy) 07/12/2021 12:38 PM PRICE CLERK Narrative PATHOLOGY [facility] - 07/13/2021 2:21 PM PRICE CLERK EPIC results best viewed via link to PDF [facility] Esthela Caraballo Laboratory [place] [address] Note to Patients: This report may contain [...] can answer questions and explain the details. [facility] FINAL Patient Name: ?? ROSALBA LI Gender: ??F : ??2005 (Age: 15) Address: ??[address] [place] [address] Hospital #: ??[id number] Taken:07/12/2021 Received:07/12/2021 Reported: 07/13/2021 Patient Type: [facility] Same Day Surg ?? Service: Gastro Location: [facility] Physician(s): ??Unknown Doctor Tamera Franco MD Sakil Kulkarni, MD Brian J. DeBosch, M.D. Diagnosis: A. [...] in aggregate. ??Labeled G1. ??Jar 0. [facility]/07/12/2021 16:25 PA(s): [place] By this signature, I attest that the above diagnosis is based upon my personal examination of the slides(and/or other material). Addenda/Procedures The performance characteristics of some immunohistochemical stains, fluorescence in-situ hybridization tests and immunophenotyping by flow cytometry cited in this report (if any) were determined by the Surgical Pathology and Flow Cytometry Departments at [facility] as part of an ongoing environmental quality analyst program and in compliance with federally mandated [...] Surgical Pathology and Flow Cytometry Departments of [facility]. ??It has not been cleared or approved by the U. S. Food and Drug Administration. IMAGES AND SCANNED DOCUMENTS, IF INCLUDED, ONLY VIEWABLE IN PDF VERSION OF REPORT us Ginger Alas MD LAB PATHOLOGY ORDERABL ES Final Result PATHOLOGY [facility] [phone] * EGD (07/12/2021 11:47 AM PRICE CLERK) Anatomical Region Laterality Modality Other Narrative Procedure Note Hira Velasco MD PhD - 07/12/2021 11:47 AM CST [facility] Patient Name: Rosalba Li Procedure Date: 07/12/2021 11:47AM Date of : 2005 Admit Type: Outpatient Age: 15 Gender: Female Attending MD: Hira Velasco MD,PHD Procedure: Pediatric Upper GI Endoscopy Providers: Hira Velasco MD, PHD (Doctor), Ginger Santiago, Fellow (Fellow), Phill Benitez, band saw marker (Nurse), Maria Ines Dennis RN (Nurse), María Arnett M.D. (Barrel Lathe Operator Inside), Joan Olea CRNA (Barrel Lathe Operator Inside) Referring MD: Jabari Bynum M.D. (Referring MD) [...] by the physician, the nurse and the loan documents closer. The time out was done inthe room prior to the start of the procedure. After I obtained informed consent, the scope was passed under direct vision. Throughout the procedure, the patient's blood pressure, pulse, and oxygensaturations were monitored continuously by anesthesia. GIF-H190 #[id number] upper endoscope was introduced through the mouth, [...] Final Result * COLONOSCOPY (07/12/2021 11:45 AM PRICE CLERK) Anatomical Region Laterality Modality Other Narrative Procedure Note Hira Velasco MD PhD - 07/12/2021 11:45 AM CST [facility] Patient Name: Rosalba Li Procedure Date: 07/12/2021 11:45AM Date of : 2005 Admit Type: Outpatient Age: 15 Gender: Female Attending MD: Hira Velasco MD,PHD Procedure: Pediatric Colonoscopy Providers: Hira Velasco MD, PHD (Doctor), Ginger Santiago, Fellow (Fellow), Phill Benitez, band saw marker (Nurse), Maria Ines Dennis RN (Nurse), María Arnett M.D. (Barrel Lathe Operator Inside), Joan Olea CRNA (Barrel Lathe Operator Inside) Referring MD: Jabari Bynum M.D. (Referring MD) [...] by the physician, the nurse and the loan documents closer. The time out was done inthe room prior to starting the procedure. After I obtained informedconsent, the scope was passed under direct vision. Throughout the procedure,the patient's blood pressure, pulse, and oxygen saturations weremonitored continuously by anesthesia. [facility] H190L #[id number] pediatric colonoscopewas introduced through the anus and [...] * hCG, urine, qualitative (07/12/2021 10:47 AM PRICE CLERK) HCG, ur Negative Negative [facility] Urine 07/12/2021 10:4 7 AM PRICE CLERK 07/12/2021 10:53 AM PRICE CLERK Rusty Thompson CASH PROCESSOR LAB URINE ORDERABLES Final R esult [facility] Department [place] [address] documented in this encounter Visit Diagnoses Diagnosis Hematochezia Blood in stool Abdominal pain, periumbilical Abdominal pain, periumbilic Nausea and vomiting, intractability of vomiting not specified, unspecified vomiting type Nausea and vomiting Nausea with vomiting documented in this encounter Admitting Diagnoses Diagnosis [...] hours, Phase I Restarted 07/12/2021 12:50 PM PRICE CLERK 120 mL/hr 120 mL/hr lidocaine 1% buffered injection 0.1 mL 0.1 mL, subcutaneous, As needed, other, IV insertion, Starting on Mon07/12/21 at 1044, Pre-Op, Maximum daily dose 0.1 mL/kg Administer immediately prior to procedure. Given 07/12/2021 11:38 AM PRICE CLERK 0.1 mL Other (Comment) documented in this encounter Discontinued Medications Medication Sig Discontinue Reason Start Date End Da te zwblkytgfxwzw-kjwafke-d affeine (EXCEDRIN MIGRAINE) 250-250-65 mg per tabletIndications:Chron ic intractable headache, unspecified headache type Take 2 tablets by mouth every 8 (eight) hours as needed for headaches Therapy completed 09/04/2020 07/05/2021 documented as of this encounter Active and Recently Administered Medications Times are shown in PRICE CLERK. Continuous Medication Order 07/10/2021 07/11/2021 07/12/2021 Lactated [...] 07/12/2021 documented in this encounter Care Teams Radiology Nurse Relationship Specialty Start Date End Date Jabari Bynum MD PCP - General 07/01/20 documented as of this encounter
--- OUTSIDE RECORDS SUMMARY | 2024-08-31 21:58 | XMS_ITS | Encounter Summary ---
Author Organization [facility] Address [address] [place] [address] Phone Care Team Providers Care Computer Mechanic Name Role Phone Jabari Bynum MD Primary Care Provider Reason for Visit * Reason Onset Date Comments EGD 06/16/2021 Colonoscopy 06/16/2021 Encounter Details Date Type Department Care Team (Late st Contact Info) Description 06/16/2021 Documentation [facility] Pediatric Gastroenterology [facility] 2nd [place] [address] [place] [phone] Mare Caceres MD [address] [place] [address] [place], [place] [id number] EGD; Colonoscopy Social History Tobacco Use Types Packs/Day Years [...] on file Legal Sex Female 3:14 AM 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 Ede Gonzalez MA Mickute, Milda, RMA Jul 12 Given prep instructions Told them about Covid- Testing ?? Previous Messages ?? ----- Message ----- From: Mare Caceres MD Sent: 06/16/2021 ?? 4:22 PM CDT To: Ede Gonzalez MA Ped GI Procedure Checklist Patient Name: Rosalba So Ordering Provider: Mare Caceres MD PCP: Jabari Bynum MD Consent, Guardianship complexity: No Labs or additional studies needed: None Indication: Abdominal Pain: Upper and Generalized, Nausea, Vomiting, Diarrhea, and Hematochezia UPPER GI ENDOSCOPY: Paired duodenal, gastric, and distal esophageal mucosal biopsies will be obtained unless otherwise specified: Esophageal biopsies: Standard Special biopsy procedures: LILA test ?? Special procedures: ??None COLONOSCOPY: Colonoscopy Prep: Standard Extended Prep Colonoscopy will include the entire colon and ileum unless otherwise specified. ? Obtain biopsies from: Ileum, Colon, and Rectosigmoid colon Polypectomy: unlikely Special biopsies: None Special specimens: None documented in this encounter Plan of Treatment Not on file documented as of this encounter Visit Diagnoses Not on filedocumented in this encounter Care Teams Computer Mechanic Relationship Specialty Start Date End Date Jabari Bynum MD PCP - General 07/01/20 documented as of this encounter
--- OUTSIDE RECORDS SUMMARY | 2024-08-31 21:59 | XMS_ITS | Encounter Summary ---
Author Organization [facility] Healthcare Address [address] [place] [address] Care Team Providers Care Assistant To The President Name Role Phone Irvin Osei MD Primary Care Provider Encounter Details Date Type Department Care Team (Late st Contact Info) Description 12/08/2014 3:53 PM CDT - 12/08/2014 5:27 PM CDT Hospital Encounter [facility] Madelyn Lakhani Sprain of ankle; Overexertion from sudden strenuous movement; Place of occurrence, place for recreation and sport; Activities involving running Social History Tobacco Use Types Packs/Day Years Used Date Smoking Tobacco: Never Assessed Comments Unknown Sex and Gender Information Value Date Recorded Sex Assigned at Not on file 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 Gender Identity Not on file Sexual Orientation Not on file documented as of this encounter Medications at Time of Discharge butalbital-acetam inophen-caffeine (FIORICET) 50-325-40 mg per tablet take 1 Tablet by oral route 3 times every day prn 20 0 12/03/2013 08/08/2017 documented as of this encounter Plan of Treatment Not on file documented as of this encounter Procedures Procedure Name Priority Date/Time Associated Diagnosis Comments XR FOOT 3+ VW Routine 12/11/2014 12:27 AM CDT XR ANKLE 3+ VW Routine 12/11/2014 12:27 AM CDT XR FOOT 3+ VW Routine 12/08/2014 4:28 PM CDT XR ANKLE 3+ VW Routine 12/08/2014 4:28 PM CDT documented in this encounter Results * XR Foot 3+ Vw (12/11/2014 12:27 AM CDT) Anatomical Region Laterality Modality N/A Radiographic Sandy ging 12/11/2014 12:2 7 AM CDT Narrative 12/11/2014 3:53 PM CDT XR Foot Min 3 Views L ??[id number] ??Acc#: ??[id number] DATE OF EXAM: ??Dec 11 2014 CLINICAL HISTORY: Left ankle and foot pain, status post fall. RESULT: Three views of the left foot demonstrate no evidence of fracture or dislocation. ??The joint spaces are normally aligned. The soft tissues are normal. IMPRESSION: NORMAL LEFT FOOT. Interpreting Physician: ??DR PAULINE ALARCON M.D. ??Read on: ??Dec 11 2014 2:04P Transcribed by: ??[email or web address] ?? On: Dec 11 2014 ??2:04P Approved Electronically by: ??AGNES Philip, DR CARPENTER ??on: ??Dec 11 2014 3:53P Attending: ??, Requesting: ??DR FREDY BLANCHARD Requesting Fax: ??-- Attending Fax: ??-- Attending ID: ?? Requesting ID: ??[id number] Report To 1 ID: ??[id number] Report To 1 Name: ??MADELYN LAKHANI Report To 1 FAX: ??-- NextGen Order #: Procedure Note Provider, MD Monica - 12/25/2016 XR Foot Min 3 Views L [id number] Acc#: [id number] DATE OF EXAM: Dec 11 2014 CLINICAL HISTORY: Left ankle and foot pain, status post fall. RESULT: Three views of the left foot demonstrate no evidence of fracture ordislocation. The joint spaces are normally aligned. The soft tissues arenormal. IMPRESSION: NORMAL LEFT FOOT. Interpreting Physician: DR PAULINE ALARCON M.D. Read on: Dec 11 20142:04P Transcribed by: [email or web address] On: Dec 11 2014 2:04P Approved Electronically by: AGNES Philip, DR CARPENTER on: Dec 11 20143:53P Attending: , Requesting: DR FREDY BLANCHARD Requesting Fax: -- Attending Fax: -- Attending ID: Requesting ID: [id number] Report To 1 ID: [id number] Report To 1 Name: MADELYN LAKHANI Report To 1 FAX: -- NextGen Order #: us Historical Provider IMKennedi XR PROCEDURES Final R esult * XR Ankle 3+ Vw (12/11/2014 12:27 AM CDT) Anatomical Region Laterality Modality N/A Radiographic Sandy ging 12/11/2014 12:2 7 AM CDT Narrative 12/11/2014 3:53 PM CDT XR ANKLE MIN 3 VIEWS L [id number] ??Acc#: ??[id number] DATE OF EXAM: ??Dec 11 2014 CLINICAL HISTORY: Left ankle and foot pain, status post fall. RESULT: Three views of the left ankle demonstrate no evidence of fracture or dislocation. The joint spaces are normally aligned. The soft tissues are normal. IMPRESSION: NORMAL LEFT ANKLE. Interpreting Physician: ??DR PAULINE ALARCON M.D. ??Read on: ??Dec 11 2014 10:08A Transcribed by: ??mb ?? On: Dec 11 2014 ??2:03P Approved Electronically by: ??AGNES Philip, DR CARPENTER ??on: ??Dec 11 2014 3:53P Attending: ??, Requesting: ??DR FREDY BLANCHARD Requesting Fax: ??-- Attending Fax: ??-- Attending ID: ?? Requesting ID: ??[id number] Report To 1 ID: ??[id number] Report To 1 Name: ??MADELYN LAKHANI Report To 1 FAX: ??-- NextGen Order #: Procedure Note Provider, MD Monica - 12/25/2016 XR ANKLE MIN 3 VIEWS L [id number] Acc#: [id number] DATE OF EXAM: Dec 11 2014 CLINICAL HISTORY: Left ankle and foot pain, status post fall. RESULT: Three views of the left ankle demonstrate no evidence of fracture ordislocation. The joint spaces are normally aligned. The soft tissues arenormal. IMPRESSION: NORMAL LEFT ANKLE. Interpreting Physician: DR PAULINE ALARCON M.D. Read on: Dec 11 201410:08A Transcribed by: [email or web address] On: Dec 11 2014 2:03P Approved Electronically by: AGNES Philip, DR CARPENTER on: Dec 11 20143:53P Attending: , Requesting: DR FREDY BLANCHARD Requesting Fax: -- Attending Fax: -- Attending ID: Requesting ID: [id number] Report To 1 ID: [id number] Report To 1 Name: MADELYN LAKHANI Report To 1 FAX: -- NextGen Order #: Historical Provider MD RIVERA XR PROCEDURES Final R esult * XR Foot 3+ Vw (12/08/2014 4:28 PM CDT) Anatomical Region Laterality Modality N/A Radiographic Sandy ging 12/08/2014 4:28 PM CDT Narrative 12/09/2014 10:45 AM CDT XR Foot Min 3 Views L ??[id number] ??Acc#: ??[id number] DATE OF EXAM: ??Dec 08 2014 CLINICAL HISTORY: Left foot injury, left foot pain. RESULT: Three views obtained. ??No acute fracture or subluxation identified. ??Soft tissues and joints are unremarkable. IMPRESSION: NEGATIVE STUDY. Interpreting Physician: ??FABIAN MENA M.D. ??Read on: ??Dec 08 2014 ??5:06P Transcribed by: ??[email or web address] ??On: Dec 08 2014 ??8:21P Approved Electronically by: ??FABIAN MENA M.D. ??on: ??Dec 09 2014 10:45A Attending: ??, Requesting: ??BRITTANY MAURICIO Requesting Fax: ??-- Attending Fax: ??-- Attending ID: ?? Requesting ID: ??[id number] Report To 1 ID: ??[id number] Report To 1 Name: ??MADELYN LAKHANI Report To 1 FAX: ??-- NextGen Order #: Procedure Note Provider, MD Monica - 12/25/2016 XR Foot Min 3 Views L [id number] Acc#: [id number] DATE OF EXAM: Dec 08 2014 CLINICAL HISTORY: Left foot injury, left foot pain. RESULT: Three views obtained. No acute fracture or subluxation identified. Softtissues and joints are unremarkable. IMPRESSION: NEGATIVE STUDY. Interpreting Physician: FABIAN MENA M.D. Read on: Dec 08 2014 5:06P Transcribed by: [email or web address] On: Dec 08 2014 8:21P Approved Electronically by: FABIAN MENA M.D. on: Dec 09 2014 10:45A Attending: , Requesting: BRITTANY MAURICIO Requesting Fax: -- Attending Fax: -- Attending ID: Requesting ID: [id number] Report To 1 ID: [id number] Report To 1 Name: MADELYN LAKHANI Report To 1 FAX: -- NextGen Order #: Historical Provider MD RIVERA XR PROCEDURES Final R esult * XR Ankle 3+ Vw (12/08/2014 4:28 PM CDT) Anatomical Region Laterality Modality N/A Radiographic Sandy ging 12/08/2014 4:28 PM CDT Narrative 12/09/2014 10:45 AM CDT XR ANKLE MIN 3 VIEWS L [id number] ??Acc#: ??[id number] DATE OF EXAM: ??Dec 08 2014 CLINICAL HISTORY: Left ankle injury, left ankle pain. RESULT: Three views obtained. ??No acute fracture or subluxation identified. ??Soft tissues and joints are unremarkable. ??Ankle mortise is maintained. Occasionally fracture in the region of the physeal plate may be difficult to identify. IMPRESSION: NEGATIVE STUDY. Interpreting Physician: ??FABIAN MENA M.D. ??Read on: ??Dec 08 2014 ??5:07P Transcribed by: ??matthew ??On: Dec 08 2014 ??8:22P Approved Electronically by: ??FABIAN MENA M.D. ??on: ??Dec 09 2014 10:45A Attending: ??, Requesting: ??BRITTANY MAURICIO Requesting Fax: ??-- Attending Fax: ??-- Attending ID: ?? Requesting ID: ??[id number] Report To 1 ID: ??[id number] Report To 1 Name: ??MADELYN LAKHANI Report To 1 FAX: ??-- NextGen Order #: Procedure Note Provider, MD Monica - 12/25/2016 XR ANKLE MIN 3 VIEWS L [id number] Acc#: [id number] DATE OF EXAM: Dec 08 2014 CLINICAL HISTORY: Left ankle injury, left ankle pain. RESULT: Three views obtained. No acute fracture or subluxation identified. Softtissues and joints are unremarkable. Ankle mortise is maintained.Occasionally fracture in the region of the physeal plate may be difficultto identify. IMPRESSION: NEGATIVE STUDY. Interpreting Physician: FABIAN MENA M.D. Read on: Dec 08 2014 5:07P Transcribed by: [email or web address] On: Dec 08 2014 8:22P Approved Electronically by: FABIAN MENA M.D. on: Dec 09 2014 10:45A Attending: , Requesting: BRITTANY MAURICIO Requesting Fax: -- Attending Fax: -- Attending ID: Requesting ID: [id number] Report To 1 ID: [id number] Report To 1 Name: MADELYN LAKHANI Report To 1 FAX: -- NextGen Order #: Historical Provider IMKennedi XR PROCEDURES Final R esult documented in this encounter Visit Diagnoses Diagnosis Sprain of ankle Unspecified site of ankle sprain and strain Overexertion from sudden strenuous movement Place of occurrence, place for recreation and sport Activities involving running documented in this encounter Care Teams Assistant To The President Relationship Specialty Start Date End Date Irvin Osei MD [address] [place] [address] PCP - General 11/28/13 10/14/16 documented as of this encounter
--- OUTSIDE RECORDS SUMMARY | 2024-08-31 21:59 | XMS_ITS | Encounter Summary ---
Author Organization [facility] Healthcare Address [address] [place] [address] Care Team Providers Care Glove Tagger Name Role Phone Irvin Osei MD Primary Care Provider [phone] Encounter Details Date Type Department Care Team (Late st Contact Info) Description 03/28/2016 10:38 PM CDT - 03/29/2016 1:21 AM T Hospital Encounter [facility] Moy Jr., MD [address] [place] [address] [place] [address] Headache Social History Tobacco Use Types Packs/Day Years Used Date Smoking Tobacco: Never Assessed Comments Unknown Sex and Gender Information Value Date Recorded Sex Assigned at Not on file 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 Gender Identity Not on file Sexual Orientation Not on file documented as of this encounter Medications at Time of Discharge butalbital-acetam inophen-caffeine (FIORICET) 50-325-40 mg per tablet take 1 Tablet by oral route 3 times every day prn 20 0 12/03/2013 08/08/2017 documented as of this encounter Plan of Treatment Not on file documented as of this encounter Visit Diagnoses Diagnosis Headache documented in this encounter Care Teams Glove Tagger Relationship Specialty Start Date End Date Irvin Osei MD [address] [place] [address] PCP - General 11/28/13 10/14/16 documented as of this encounter
--- OUTSIDE RECORDS SUMMARY | 2024-08-31 21:59 | XMS_ITS | Encounter Summary ---
Author Organization [facility] Healthcare Address [address] [place] [address] Care Team Providers Care Avionics Engineer Name Role Phone Nelly Marcus Primary Care Provider Unavailabl e Encounter Details Date Type Department Care Team (Late st Contact Info) Description 12/21/2016 10:15 PM CDT - 12/22/2016 12:34 AM CDT Emergency [facility] Emergency Department [address] [place] [id number] Trever Iverson Jr., MD [address] [place] [address] Discharge Disposition: Discharge to home or self care Social History Tobacco Use Types Packs/Day Years Used Date Smoking Tobacco: Never Assessed Comments Unknown Sex and Gender Information Value Date Recorded Sex Assigned at Not on file 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 Gender Identity Not on file Sexual Orientation Not on file documented as of this encounter Medications at Time of Discharge butalbital-acetam inophen-caffeine (FIORICET) 50-325-40 mg per tablet take 1 Tablet by oral route 3 times every day prn 20 0 12/03/2013 08/08/2017 documented as of this encounter Discharge Disposition Disposition Code Departure Means Destination Discharge to home or self care documented in this encounter Plan of Treatment Not on file documented as of this encounter Procedures Procedure Name Priority Date/Time Associated Diagnosis Comments XR ABDOMEN AP 1V Routine 12/22/2016 4:27 AM CDT documented in this encounter Results * XR Abdomen AP 1V (12/22/2016 4:27 AM CDT) Anatomical Region Laterality Modality Body N/A Radiographic Sandy ging 12/22/2016 4:27 AM CDT Narrative 12/22/2016 4:27 AM CDT XR KUB ?[id number] ??Acc#: ??[id number] DATE OF EXAM: ??Dec 21 2016 CLINICAL HISTORY: Mid abdominal pain. RESULT: Supine views of the abdomen were obtained. ??The bowel gas pattern is nonobstructive. ??A moderate amount of retained stool is seen. ??No pathologic calcifications or organomegaly is evident. IMPRESSION: 1. MODERATE RETAINED STOOL. Interpreting Physician: ??BHASKAR BACK M.D. ??Read on: ??Dec 22 2016 6:37A Transcribed by: ??elle ??On: Dec 22 2016 ??9:25A Approved Electronically by: ??BHASKAR BACK M.D. ??on: ??Dec 22 2016 10:02A Attending: ??TREVER IVERSON Requesting: ??TREVER IVERSON Requesting Fax: ??-- Attending Fax: ??-- Attending ID: ??[id number] Requesting ID: ??[id number] Report To 1 ID: ??[id number] Report To 1 Name: ??TREVER IVERSON Report To 1 FAX: ??-- NextGen Order #: ?? Procedure Note Miscellaneous, Not In File / Provider, MD Monica - 01/21/2017 XR KUB [id number] Acc#: [id number] DATE OF EXAM: Dec 21 2016 CLINICAL HISTORY: Mid abdominal pain. RESULT: Supine views of the abdomen were obtained. The bowel gas pattern isnonobstructive. A moderate amount of retained stool is seen. Nopathologic calcifications or organomegaly is evident. IMPRESSION: 1. MODERATE RETAINED STOOL. Interpreting Physician: BHASKAR BACK M.D. Read on: Dec 22 20166:37A Transcribed by: elle On: Dec 22 2016 9:25A Approved Electronically by: BHASKAR BACK M.D. on: Dec 22 201610:02A Attending: TREVER IVERSON Requesting: TREVER IVERSON Requesting Fax: -- Attending Fax: -- Attending ID: [id number] Requesting ID: [id number] Report To 1 ID: [id number] Report To 1 Name: TREVER IVERSON Report To 1 FAX: -- NextGen Order #: us Not In File Miscellaneous IMG XR PROCEDURES Hillary l Result documented in this encounter Visit Diagnoses Not on filedocumented in this encounter Care Teams Avionics Engineer Relationship Specialty Start Date End Date Nelly Marcus PCP - General 10/15/16 03/28/17 documented as of this encounter
--- OUTSIDE RECORDS SUMMARY | 2024-08-31 21:59 | XMS_ITS | Encounter Summary ---
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 - 09/02/2008 8:10 PM CISTERN ROOM WORKING SUPERVISOR Hospital Encounter [facility] Ed Adair MD [address] [address] Nelly Marcus Streptococcal sore throat Social History Tobacco Use Types Packs/Day Years Used Date Smoking Tobacco: Never Assessed Comments Unknown Sex and Gender Information Value Date Recorded Sex Assigned at Not on file 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
--- OUTSIDE RECORDS SUMMARY | 2024-08-31 21:59 | XMS_ITS | Encounter Summary ---
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 c/o fatigue, star al discharge, sore throat, diarrhea, vomiting, and headache since 05/09. Encounter Details Date Type Department Care Team (Late st Contact Info) Description 05/13/2021 2:15 PM CDT Office Visit [facility] [address] [place] [address] [place] [address] Dayana Perkins NP [address] [place] [address] Viral illness (Primary Dx) Social History Tobacco Use Types [...] on file Legal Sex Female 3:14 AM [employer] Gender Identity Not on file Sexual Orientation Not on file documented as of this encounter Last Filed Vital Signs Vital Sign Reading Time Taken Comments Blood Pressure 118/68 05/13/2021 2:14 PM CDT Pulse 88 05/13/2021 2:14 PM CDT Temperature 36.4 ??C (97.6 ??F) 05/13/2021 2:14 PM CD T Respiratory Rate 18 05/13/2021 2:14 PM CDT Oxygen Saturation 97% 05/13/2021 2:14 PM CDT Inhaled Oxygen Concentration - - Weight 78.5 kg (173 lb) 05/13/2021 2:14 PM CDT Height 152.4 cm (5') 05/13/2021 2:14 PM CDT Body Mass Index 33.79 05/13/2021 2:14 PM CDT Body Mass Index Percentile 96.95% 05/13/2021 2:1 4 PM CDT Growth Chart: [facility] (Girls, 2- 20 Years) documented in this encounter Patient Instructions * Patient Instructions* Dayana Perkins, [place] - 05/13/2021 2:15 PM CDT The rapid COVID antigen test performed in clinic today was negative. Testing is not 100% accurate. Due to your symptoms, the CDC advises to self isolate until at least 10 days have passed since symptom onset, your symptoms have improved, and you have been fever free without the use of fever reducing medications for at least 24 hours. Although you have not been diagnosed with COVID-19, your presenting symptoms could be indicative ofCOVID infection and it is recommended that you stay home for recovery at this time. You may use acetaminophen and/or ibuprofen to control pain and fever. If you have chronic liver disease, have ever had a stomach ulcer or gastrointestinal bleeding talk with your healthcare provider before using these medicines. Aspirin should never be given to anyone under 18 years of age who is ill with a viral infection or fever. It may cause severe liver or brain damage. Your appetite may be poor, so a light diet is ok. Stay well hydrated by drinking 6 to 8 glasses of fluids per day (water, soft drinks, juices, tea, or soup). Extra fluids will help loosen secretions in the nose and lungs. Qefr-zzb-ewcecnn cold medicines will not shorten the length of time you???re sick, but they may be helpful for relieving the following symptoms: headache, cough, sore throat, and nasal and sinus congestion. If you take prescription medicines, ask your healthcare provider or pharmacist which vfoj-mts-hoayloj medicines are safe to use. (Note: DO NOT use decongestants if you have high blood pressure.) Steps to help prevent the spread of COVID-19 if you are sick If you are sick with COVID-19 or think you might have COVID-19, follow the steps below to care for yourself and to help protect other people in your home and community. Stay home except to get medical care ??? Most people with COVID-19 have mild illness and are able to recover at home without medical care. Do not leave your home, except to get medical care. Do not visit public areas. ??? Take care of yourself. Get rest and stay hydrated. Take szwu-esv-fppobzf medicines to help you feel better. ??? Stay in touch with your doctor. Call before you get medical care. Be sure to get care if you have trouble breathing, or have any other emergency warning signs, or if you think it is an emergency. ??? Avoid using public transportation, ride-sharing, or taxis. Monitor your symptoms ??? Symptoms of COVID-19 include fever, cough, shortness of breath or difficulty breathing, fatigue, muscle or body aches, headache, new loss of taste or smell, sore throat, congestion, runny nose, nausea, vomiting, or diarrhea. When to Seek Medical Attention If you develop emergency warning signs for COVID-19 get medical attention immediately. Emergency warning signs include*: ??? Trouble breathing ??? Persistent pain or pressure in the chest ??? New confusion or inability to arouse ??? Bluish lips or face *This list is not all inclusive. Please consult your medical provider for any other symptoms that are severe or concerning. Call 911 if you have a medical emergency: If you have a medical emergency and need to call 911, notify the blanching machine operator that you have or think you might have, COVID-19. If possible, put on a facemask before medical help arrives. Separate yourself from other people in your home, this is known as home isolation ??? As much as possible, you should stay away from other people and pets in your home. You should stay in a specific ???sick room?? if possible. Use a separate bathroom, if available. If you need ximena around other people or animals in or outside of the home, wear a mask For more information on sharing close living quarters with someone who is sick visit https://www.cdc .gov/coronavirus/2019-ncov/kcxeh-bkwe-bkchbi/dyeyvl-aj-xszfg-quarters.html For more information on COVID-19 and pets visit https://www.cdc.gov/coronavirus/2019-ncov/faq.html Call ahead before visiting your doctor ??? Many medical visits for routine care are being postponed or done by phone or telemedicine. ??? If you have a medical appointment that cannot be postponed, call your doctor???s office, and tell them you have or may have COVID-19. This will help the office protect themselves and other patients. If you are sick wear a face mask over your nose and mouth in the following situations ??? You should wear a face mask over your nose and mouth if you must be around other people or animals, including pets (even at home). ??? You don't need to wear the face mask if you are alone. If you can't put on a face mask (becauseof trouble breathing, for example), cover your coughs and sneezes in some other way (tissue or inner elbow). Try to stay at least 6 feet away from other people. This will help protect the people around you. ??? Face masks should not be placed on children under 2 years old, anyone who has trouble breathing, or anyone who is not able to remove the covering without help. Cover your coughs and sneezes ??? Cover your mouth and nose with a tissue or the inside of your elbow when you cough or sneeze. ??? Throw used tissues in a lined trash can. ??? Immediately wash your hands with soap and water for at least 20 seconds. If soap and water are not available, clean your hands with an alcohol-based hand food service coordinator that contains at least 60% alcohol. Clean your hands often ??? Wash your hands often with soap and water for at least 20 seconds. This is especially importantafter blowing your nose, coughing, or sneezing; going to the bathroom; and before eating or preparing food. ??? Use hand food service coordinator if soap and water are not available. Use an alcohol-based hand food service coordinator with at least 60% alcohol, covering all surfaces of your hands and rubbing them together until they feel dry. ??? Soap and water are the best option, especially if hands are visibly dirty. ??? Avoid touching your eyes, nose, and mouth especially with unwashed hands. Avoid sharing personal household items ??? Do not share dishes, drinking glasses, cups, eating utensils, towels, or bedding with other people in your home. ??? After using these items, wash them thoroughly with soap and water or put them in the biochemistry specialist. Clean all ???high-touch?? surfaces everyday. High-touch surfaces include phones, remote controls, counters, tabletops, doorknobs, bathroom fixtures, toilets, keyboards, tablets, and bedside tables. ??? Clean and disinfect high-touch surfaces in your ???sick room?? and bathroom everyday while wearing disposable gloves. Let someone else clean and disinfect surfaces in common areas, but not your bedroom and bathroom. ??? If a caregiver or other person needs to clean and disinfect a sick person???s bedroom or bathroom, they should do so on an as-needed basis. The caregiver/other person should wear a mask and disposable gloves prior to cleaning.They should wait as long as possible after the sick person has used the bathroom before coming in to clean and use the bathroom. ??? Clean and disinfect areas that may have blood, stool, or body fluids on them. ??? Clean the area or item with soap and water or another detergent if it is dirty. Then, use a household disinfectant. o Be sure to follow the instructions on the label to ensure safe and effective use of the product. Many products recommend keeping the surface wet for several minutes to ensure germs are killed. Manyalso recommend precautions such as wearing gloves and making sure you have good ventilation during use of the product. o Most EPA-registered household disinfectants should be effective. When you can be around others (end home isolation) depends on different factors for different situations. If you think or know you have COVID-19, and you had symptoms you can be with others after ??? 24 hours with no fever (without the use of fever reducing medications) AND ??? Respiratory symptoms have improved (cough, shortness of breath) AND ??? 10 days since symptoms first appeared. ??? Loss of taste and smell may persist for weeks or months after recovery and need not delay the end of isolation If you tested positive for COVID-19 but had no symptoms you can be with others after ??? 10 days have passed since the test. ??? If you develop symptoms after testing positive, follow the guidance above for I think or I know I had COVID, and I had symptoms . If you have a weakened immune system due to a health condition or medication you can be around others ??? People with conditions that weaken their immune system might need to stay home longer than 10 days. Talk to your healthcare provider for more information. If you have been around a person with COVID-19 ??? New options to reduce quarantine - Reducing the length of quarantine may make it easier for people to quarantine by reducing the time they cannot work. New CDC recommendations suggest you can return to work ??? On day 10 without testing ??? On day 7 after receiving a negative test result (test must occur on day 5 or later) After stopping quarantine, you should ??? Watch for symptoms until 14 days after exposure. ??? If you have symptoms, immediately self-isolate and contact your local public health authority or healthcare provider. ??? Wear a mask, stay at least 6 feet from others, wash their hands, avoid crowds, and take other steps to prevent the spread of COVID-19. CDC continues to endorse quarantine for 14 days based on the time it takes to develop illness/symptoms and recognizes that any quarantine shorter than 14 days balances reduced burden against a small possibility of spreading the virus. CDC will continue to evaluate new information and update recommendations as needed. ??? If you live with someone positive for COVID-19, and you are unable to avoid close contact, you should quarantine for the 7 to 10 days AFTER the person who has COVID-19 meets the criteria to end home isolation. However, anyone who has had close contact with someone with COVID-19 and who: ??? developed COVID-19 illness within the previous 3 months AND ??? has recovered AND ??? remains without COVID-19 symptoms (for example, cough, shortness of breath) does not need to stay home. In all cases, follow the guidance of your healthcare provider and local health department regardingquarantine guidelines. The decision to stop home isolation should be made in consultation with yourhealthcare provider and state and local health departments. Local decisions depend on local circumstances. The above information is from the CDC website on August 03, 2020. Page was last reviewed: July 31, 2020. Additional information and resources about COVID-19 symptoms, testing, self- isolation, how to prevent spread, and more are available at: Https://www.cdc.gov/coronavirus Prevention of dehydration is important. Take small sips of water, Gatorade, or Pedialyte several times each hour to help maintain hydration. Observe for signs/symptoms of dehydration including: ??? Pale skin color ??? Diminished tear production ??? Increased thirst ??? Decrease in urine output ??? Very dry lips/ oral mucosa If these signs/symptoms present, go to the ER for evaluation. documented in this encounter Progress Notes * Dayana Perkins NP - 05/13/2021 2:15 PM CDT Images from the original note were not included. Patient ID: Rosalba So is a 15 y.o. female followed by Jabari Bynum MD Chief Complaint Patient presents with ??? COVID-19 EVALUATION Pt. c/o fatigue, nasal discharge, sore throat, diarrhea, vomiting, and headache since 05/09. Presents to [facility] with mom, c/o fatigue, runny nose, sore throat, vomiting, diarrhea, bilateral ear pain, and headaches, onset 05/09/2021. She denies fever/chills or SOB. She has been takingOTC cold and flu medication with minimal improvement of symptoms. Review of Systems Constitutional: Positive for fatigue. Negative for chills and fever. HENT: Positive for ear pain, rhinorrhea and sore throat. Negative for congestion and postnasal drip. Respiratory: Negative for cough, chest tightness, shortness of breath and wheezing. Cardiovascular: Negative for chest pain. Gastrointestinal: Positive for diarrhea and vomiting. Neurological: Positive for headaches. Vitals: 05/13/21 1414 BP: 118/68 Pulse: 88 Resp: 18 Temp: 36.4 ??C (97.6 ??F) TempSrc: Oral SpO2: 97% Weight: 78.5 kg (173 lb) Height: 152.4 cm (5') Recent Results (from the past 24 hour(s)) COVID-19 POC Collection Time: 05/13/21 2:35 PM Result Value Ref Range COVID-19 Ag POC (BD Veritor) Presumptive Negative Presumptive Negative, Invalid Physical Exam Vitals reviewed. Constitutional: Appearance: She is well-developed. HENT: Right Ear: External ear normal. Tympanic membrane is scarred. Tympanic membrane is not injected, erythematous or bulging. Left Ear: External ear normal. Tympanic membrane is scarred. Tympanic membrane is not injected, erythematous or bulging. Nose: Right Sinus: No maxillary sinus tenderness or frontal sinus tenderness. Left Sinus: No maxillary sinus tenderness or frontal sinus tenderness. Mouth/Throat: Lips: [place]. Mouth: Mucous membranes are moist. Pharynx: Posterior oropharyngeal erythema present. Tonsils: No tonsillar exudate. Eyes: Conjunctiva/sclera: Conjunctivae normal. Cardiovascular: Rate and Rhythm: Normal rate and regular rhythm. Pulmonary: Effort: Pulmonary effort is normal. Breath sounds: Normal breath sounds. No wheezing or rhonchi. Musculoskeletal: General: Normal range of motion. Skin: General: Skin is warm and dry. Neurological: Mental Status: She is alert and oriented to person, place, and time. Diagnoses and all orders for this visit: Viral illness (Primary) - COVID-19 POC Orders Placed This Encounter Procedures ??? COVID-19 POC Order Specific Question: Is the Patient experiencing symptoms consistent with COVID? Answer: Yes Order Specific Question: Date of Symptom Onset Answer: 05/09/2021 Order Specific Question: Is the patient hospitalized? [...] living setting? Answer: No Order Specific Question: Is the patient ? Answer: No Assessment/Plan Lungs CTA, O2 Saturation @97%/RA. Will recommend supportive care for symptoms with f/u precautions including signs/symptoms warranting ER evaluation. ??? Discussed home self-care, follow up needs, and signs and symptoms that warrant immediate medical attention/ER evaluation including worsening fever, increased shortness of breath, severe N/V/D, orany other worrisome symptoms ??? Reviewed isolation/quarantine protocols ??? Discussed symptomatic relief of symptoms ??? Advised to rest and increase oral fluid intake ??? Advised to stay out of work and work release given explaining when patient can return to work Patient Education The rapid COVID antigen test performed in clinic today was negative. Testing is not 100% accurate. Due to your symptoms, the CDC advises to self isolate until at least 10 days have passed since symptom onset, your symptoms have improved, and you have been fever free without the use of fever reducing medications for at least 24 hours. Although you have not been diagnosed with COVID-19, your presenting symptoms could be indicative ofCOVID infection and it is recommended that you stay home for recovery at this time. You may use acetaminophen and/or ibuprofen to control pain and fever. If you have chronic liver disease, have ever had a stomach ulcer or gastrointestinal bleeding talk with your healthcare provider before using these medicines. Aspirin should never be given to anyone under 18 years of age who is ill with a viral infection or fever. It may cause severe liver or brain damage. Your appetite may be poor, so a light diet is ok. Stay well hydrated by drinking 6 to 8 glasses of fluids per day (water, soft drinks, juices, tea, or soup). Extra fluids will help loosen secretions in the nose and lungs. Qusc-qbu-jhccaep cold medicines will not shorten the length of time you???re sick, but they may be helpful for relieving the following symptoms: headache, cough, sore throat, and nasal and sinus congestion. If you take prescription medicines, ask your healthcare provider or pharmacist which dexv-lix-qyhaoxj medicines are safe to use. (Note: DO NOT use decongestants if you have high blood pressure.) Steps to help prevent the spread of COVID-19 if you are sick If you are sick with COVID-19 or think you might have COVID-19, follow the steps below to care for yourself and to help protect other people in your home and community. Stay home except to get medical care ??? Most people with COVID-19 have mild illness and are able to recover at home without medical care. Do not leave your home, except to get medical care. Do not visit public areas. ??? Take care of yourself. Get rest and stay hydrated. Take zqlw-ikv-mdvlefw medicines to help you feel better. ??? Stay in touch with your doctor. Call before you get medical care. Be sure to get care if you have trouble breathing, or have any other emergency warning signs, or if you think it is an emergency. ??? Avoid using public transportation, ride-sharing, or taxis. Monitor your symptoms ??? Symptoms of COVID-19 include fever, cough, shortness of breath or difficulty breathing, fatigue, muscle or body aches, headache, new loss of taste or smell, sore throat, congestion, runny nose, nausea, vomiting, or diarrhea. When to Seek Medical Attention If you develop emergency warning signs for COVID-19 get medical attention immediately. Emergency warning signs include*: ??? Trouble breathing ??? Persistent pain or pressure in the chest ??? New confusion or inability to arouse ??? Bluish lips or face *This list is not all inclusive. Please consult your medical provider for any other symptoms that are severe or concerning. Call 911 if you have a medical emergency: If you have a medical emergency and need to call 911, notify the blanching machine operator that you have or think you might have, COVID-19. If possible, put on a facemask before medical help arrives. Separate yourself from other people in your home, this is known as home isolation ??? As much as possible, you should stay away from other people and pets in your home. You should stay in a specific ???sick room?? if possible. Use a separate bathroom, if available. If you need ximena around other people or animals in or outside of the home, wear a mask For more information on sharing close living quarters with someone who is sick visit https://www.cdc .gov/coronavirus/2019-ncov/tothg-zuob-nirqnu/qdqmbz-yv-ghrga-quarters.html For more information on COVID-19 and pets visit https://www.cdc.gov/coronavirus/2019-ncov/faq.html Call ahead before visiting your doctor ??? Many medical visits for routine care are being postponed or done by phone or telemedicine. ??? If you have a medical appointment that cannot be postponed, call your doctor???s office, and tell them you have or may have COVID-19. This will help the office protect themselves and other patients. If you are sick wear a face mask over your nose and mouth in the following situations ??? You should wear a face mask over your nose and mouth if you must be around other people or animals, including pets (even at home). ??? You don't need to wear the face mask if you are alone. If you can't put on a face mask (becauseof trouble breathing, for example), cover your coughs and sneezes in some other way (tissue or inner elbow). Try to stay at least 6 feet away from other people. This will help protect the people around you. ??? Face masks should not be placed on children under 2 years old, anyone who has trouble breathing, or anyone who is not able to remove the covering without help. Cover your coughs and sneezes ??? Cover your mouth and nose with a tissue or the inside of your elbow when you cough or sneeze. ??? Throw used tissues in a lined trash can. ??? Immediately wash your hands with soap and water for at least 20 seconds. If soap and water are not available, clean your hands with an alcohol-based hand food service coordinator that contains at least 60% alcohol. Clean your hands often ??? Wash your hands often with soap and water for at least 20 seconds. This is especially importantafter blowing your nose, coughing, or sneezing; going to the bathroom; and before eating or preparing food. ??? Use hand food service coordinator if soap and water are not available. Use an alcohol-based hand food service coordinator with at least 60% alcohol, covering all surfaces of your hands and rubbing them together until they feel dry. ??? Soap and water are the best option, especially if hands are visibly dirty. ??? Avoid touching your eyes, nose, and mouth especially with unwashed hands. Avoid sharing personal household items ??? Do not share dishes, drinking glasses, cups, eating utensils, towels, or bedding with other people in your home. ??? After using these items, wash them thoroughly with soap and water or put them in the biochemistry specialist. Clean all ???high-touch?? surfaces everyday. High-touch surfaces include phones, remote controls, counters, tabletops, doorknobs, bathroom fixtures, toilets, keyboards, tablets, and bedside tables. ??? Clean and disinfect high-touch surfaces in your ???sick room?? and bathroom everyday while wearing disposable gloves. Let someone else clean and disinfect surfaces in common areas, but not your bedroom and bathroom. ??? If a caregiver or other person needs to clean and disinfect a sick person???s bedroom or bathroom, they should do so on an as-needed basis. The caregiver/other person should wear a mask and disposable gloves prior to cleaning.They should wait as long as possible after the sick person has used the bathroom before coming in to clean and use the bathroom. ??? Clean and disinfect areas that may have blood, stool, or body fluids on them. ??? Clean the area or item with soap and water or another detergent if it is dirty. Then, use a household disinfectant. o Be sure to follow the instructions on the label to ensure safe and effective use of the product. Many products recommend keeping the surface wet for several minutes to ensure germs are killed. Manyalso recommend precautions such as wearing gloves and making sure you have good ventilation during use of the product. o Most EPA-registered household disinfectants should be effective. When you can be around others (end home isolation) depends on different factors for different situations. If you think or know you have COVID-19, and you had symptoms you can be with others after ??? 24 hours with no fever (without the use of fever reducing medications) AND ??? Respiratory symptoms have improved (cough, shortness of breath) AND ??? 10 days since symptoms first appeared. ??? Loss of taste and smell may persist for weeks or months after recovery and need not delay the end of isolation If you tested positive for COVID-19 but had no symptoms you can be with others after ??? 10 days have passed since the test. ??? If you develop symptoms after testing positive, follow the guidance above for I think or I know I had COVID, and I had symptoms . If you have a weakened immune system due to a health condition or medication you can be around others ??? People with conditions that weaken their immune system might need to stay home longer than 10 days. Talk to your healthcare provider for more information. If you have been around a person with COVID-19 ??? New options to reduce quarantine - Reducing the length of quarantine may make it easier for people to quarantine by reducing the time they cannot work. New CDC recommendations suggest you can return to work ??? On day 10 without testing ??? On day 7 after receiving a negative test result (test must occur on day 5 or later) After stopping quarantine, you should ??? Watch for symptoms until 14 days after exposure. ??? If you have symptoms, immediately self-isolate and contact your local public health authority or healthcare provider. ??? Wear a mask, stay at least 6 feet from others, wash their hands, avoid crowds, and take other steps to prevent the spread of COVID-19. CDC continues to endorse quarantine for 14 days based on the time it takes to develop illness/symptoms and recognizes that any quarantine shorter than 14 days balances reduced burden against a small possibility of spreading the virus. CDC will continue to evaluate new information and update recommendations as needed. ??? If you live with someone positive for COVID-19, and you are unable to avoid close contact, you should quarantine for the 7 to 10 days AFTER the person who has COVID-19 meets the criteria to end home isolation. However, anyone who has had close contact with someone with COVID-19 and who: ??? developed COVID-19 illness within the previous 3 months AND ??? has recovered AND ??? remains without COVID-19 symptoms (for example, cough, shortness of breath) does not need to stay home. In all cases, follow the guidance of your healthcare provider and local health department regardingquarantine guidelines. The decision to stop home isolation should be made in consultation with [facility] provider and state and local health departments. Local decisions depend on local circumstances. The above information is from the CDC website on August 03, 2020. Page was last reviewed: July 31, 2020. Additional information and resources about COVID-19 symptoms, testing, self- isolation, how to prevent spread, and more are available at: Https://www.cdc.gov/coronavirus Prevention of dehydration is important. Take small sips of water, Gatorade, or Pedialyte several times each hour to help maintain hydration. Observe for signs/symptoms of dehydration including: ??? Pale skin color ??? Diminished tear production ??? Increased thirst ??? Decrease in urine output ??? Very dry lips/ oral mucosa If these signs/symptoms present, go to the ER for evaluation. documented in this encounter Plan of Treatment Not on file documented as of this encounter Procedures Procedure Name Priority Date/Time Associated Diagnosis Comments COVID-19 POC Routine 05/13/2021 2:35 PM CDT Viral illness documented in this encounter Results * COVID-19 POC (05/13/2021 2:35 PM CDT) COVID-19 Ag POC ([facility]) Presumptive Negative Presumptive Negative, Invalid [facility] Nasal 05/13/2021 2:35 PM CDT Dayana Perkins NP POINT OF CARE TEST ORDER COLT Final Result [facility] [id number] [place] [address] [place] [address] documented in this encounter Visit Diagnoses Diagnosis Viral illness- Primary Unspecified viral infection, in conditions classified elsewhere and of unspecified site documented in this encounter Additional Health Concerns Infection Onset Date Last Indicated Resolved Time COVID: Suspected 05/13/2021 05/13/2021 05/13/2021 2:36 PM CDT documented as of this encounter 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
--- OUTSIDE RECORDS SUMMARY | 2024-08-31 21:59 | XMS_ITS | Encounter Summary ---
Author Organization [facility] Healthcare Address [address] [place] [address] Care Team Providers Care Nitrator Operator Name Role Phone Jabari Bynum MD Primary Care Provider Reason for Visit * Reason Comments Abdominal Pain Encounter Details Date Type Department Care Team (Late st Contact Info) Description 06/04/2021 6:20 AM CDT - 06/04/2021 10:25 AM CDT Emergency [facility] [place] [address] Alesha Guajardo MD [address] [place] [id number] Abdominal pain (Primary Dx); Nausea and vomiting, intractability of vomiting not specified, unspecified vomiting type; Diarrhea, unspecified type Discharge Disposition: Discharge to home or [...] on file 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 Gender Identity Not on file Sexual Orientation Not on file documented as of this encounter Last Filed Vital Signs Vital Sign Reading Time Taken Comments Blood Pressure 114/77 06/04/2021 6:17 AM CDT Pulse 64 06/04/2021 9:31 AM CDT Temperature 37 ??C (98.6 ??F) 06/04/2021 9:31 AM CDT Respiratory Rate 18 06/04/2021 9:31 AM CDT Oxygen Saturation 96% 06/04/2021 6:17 AM CDT Inhaled Oxygen Concentration - - Weight 83.1 kg (183 lb 3.2 oz) 06/04/2021 6:10 A M CDT Height - - Body Mass Index - - documented in this encounter Discharge Diagnoses Diagnosis Nausea with vomiting, unspecified - NAUSEA WITH VOMITING, UNSPECIFIED Lower abdominal pain, unspecified - LOWER ABDOMINAL PAIN, UNSPECIFIED Diarrhea, unspecified - DIARRHEA, UNSPECIFIED documented in this encounter Discharge Instructions * Discharge Instructions* Halima Delong BS - 06/04/2021 10:03 AM CDT You were seen for abdominal pain and diarrhea. We ran labs, urine studies, and stool studies. Your blood work and urine were reassuring. It will take a few days for the stool studies to result. We are placing a referral for pediatric gastroenterology. We are sending a prescription for zofran (ondansetron) for nausea. Take 1 as soon as you feel nauseous. We are also writing a prescription for bentyl (dicyclomine), which is an antispasmodic that helps with crampy abdominal pain. Take it 3-4 times daily. Please seek medical attention if you are unable to keep down fluids and are showing signs of dehydration (rapid heart rate, lightheadedness, decreased urine output). documented in this encounter Medications at Time of Discharge citalopram (CeleXA) 10 mg tablet Take 10 mg by mouth daily 0 06/27/2018 acetaminophen-asp irin-caffeine (EXCEDRIN MIGRAINE) 250-250-65 mg per tabletIndications :Chronic intractable headache, unspecified headache type Take 2 tablets by mouth every 8 (eight) hours as needed for headaches 30 tablet 09/04/2020 1 dicyclomine (BENTYL) 20 mg tablet Take 1 tablet (20 mg total) by mouth 2 (two) times a day 20 tablet 06/04/2021 1 ibuprofen (ADVIL,MOTRIN) 600 mg tablet 10/31/2017 1 omeprazole (PriLOSEC) 20 mg capsule TAKE ONE CAPSULE BY MOUTH TWICE A DAY 60 capsule 1 02/05/2018 1 ondansetron (ZOFRAN) 4 mg tablet Take 1 tablet (4 mg total) by mouth every 8 (eight) hours as needed for nausea or vomiting 10 tablet 06/04/2021 1 topiramate (TOPAMAX) 25 mg tablet Take 1 tablet (25 mg total) by mouth nightly for 7 days, THEN 2 tablets (50 mg total) nightly for 24 days. 55 tablet 09/07/2020 4 documented as of this encounter Ordered Prescriptions Prescription Sig Dispense Quantity Refills Last Filled Start Date End Date ondansetron (ZOFRAN) 4 mg tablet Take 1 tablet (4 mg total) by mouth every 8 (eight) hours as needed for nausea or vomiting 10 tablet 06/04/2021 1 dicyclomine (BENTYL) 20 mg tablet Take 1 tablet (20 mg total) by mouth 2 (two) times a day 20 tablet 06/04/2021 1 documented in this encounter Discharge Disposition Disposition Code Departure Means Destination Discharge to home or self care documented in this encounter ED Notes * Stacy Lopez MD - 06/04/2021 7:50 AM CDT HPI Chief Complaint Patient presents with ??? Abdominal Pain HPI 15 yoF h/o migraines, anxiety, and depression presenting with abdominal pain, vomiting, and diarrhea x6 weeks. Lower abdominal cramping pain before episodes of diarrhea. Will have periods of exacerbated pain rated 10/10 that makes her stop what she is doing. Having diarrhea 4-5 time per day. Sometimes bloody both mixed in with stools and when she wipes. Will have 1-2 episodes of daily emesis. Mostly after eating but will occasionally have emesis on an empty stomach. Sometimes in the morning. Does not wake her up from sleep. All emesis has been NBNB. Misses about 1 day of school per week due to pain or getting sick at school. Afebrile. No URI sx. Denies urinary or vaginal symptoms. Continues to take PO. Feels more fatigued than usual. No new rashes, no mouth ulcers or joint pain. Associated dizziness/lightheadedness but no syncopal episodes. Symptoms started after exposure to fresh water. Presented to [facility] on 05/19 where labs were reassuring and a CT abd/pelvis was negative. Diagnosed with a UTI/pyelo with a dirty urine sample and discharged on Bactrim. Presented to PCP after that because of continued symptoms and they obtained stool studies and discontinued bactrim. Started on a new antibiotic but unsure name, started with an F (?Flagyll). Patient reports 20 lb weight loss since symptoms started. Per charts we can see, has maintained weight since [facility] visit. Denies alcohol, tobacco, or drug use. Last sexually active 3 months ago, tested for STDs and , all negative. Dad with IBS. MGM with RA. No other GI or AI disorders in the family. Patient History: Patient Active Problem List Diagnosis Date Noted ??? GERD (gastroesophageal reflux disease) 09/17/2019 ??? Hematochezia 12/28/2016 ??? Chronic migraine without aura without status migrainosus, not intractable 04/27/2016 Past Medical History: Diagnosis Date ??? Migraines Past Surgical History: Procedure Laterality Date ??? TONSILLECTOMY History reviewed. No pertinent family history. Social History Tobacco Use ??? Smoking status: Never Smoker ??? Smokeless tobacco: Never Used Substance Use Topics ??? Alcohol use: Never ??? Drug use: Not on file Social History Social History Narrative ??? Not on file Review of Systems Review of Systems Constitutional: Positive for activity change, appetite change and unexpected weight change (subjective weight loss). Negative for fever. HENT: Negative for congestion, mouth sores, rhinorrhea, sore throat and trouble swallowing. Eyes: Negative for pain and redness. Respiratory: Negative for cough and shortness of breath. Cardiovascular: Negative for chest pain. Gastrointestinal: Positive for abdominal pain, blood in stool, diarrhea, nausea and vomiting. Negative for abdominal distention. Genitourinary: Negative for decreased urine volume, dysuria, hematuria, vaginal discharge and vaginal pain. Musculoskeletal: Negative for arthralgias and myalgias. Skin: Negative for rash. Neurological: Positive for dizziness, light-headedness and headaches. Negative for syncope. Physical Exam ED Triage Vitals [06/04/21 0617] Temp Pulse Resp BP SpO2 36 ??C (96.8 ??F) 82 20 114/77 96 % Temp src Heart Rate Source Patient Position BP Location FiO2 (%) Temporal -- -- -- -- Physical Exam Vitals and nursing note reviewed. Constitutional: General: She is not in acute distress. Appearance: She is not ill-appearing. HENT: Head: Normocephalic and atraumatic. Mouth/Throat: Mouth: Mucous membranes are moist. Pharynx: Oropharynx is clear. No pharyngeal swelling or oropharyngeal exudate. Comments: No oral ulcers or lesions Eyes: Extraocular Movements: Extraocular movements intact. Pupils: Pupils are equal, round, and reactive to light. Cardiovascular: Rate and Rhythm: Normal rate and regular rhythm. Heart sounds: Normal heart sounds. Pulmonary: Effort: Pulmonary effort is normal. No respiratory distress. Breath sounds: Normal breath sounds. Abdominal: General: Abdomen is flat. Bowel sounds are increased. There is no distension. Palpations: Abdomen is soft. There is no hepatomegaly or splenomegaly. Tenderness: There is generalized abdominal tenderness and tenderness in the suprapubic area and left lower quadrant. There is no guarding or rebound. Negative signs include Solomon's sign and Rovsing's sign. Genitourinary: Rectum: Normal. Skin: General: Skin is warm. Capillary Refill: Capillary refill takes less than 2 seconds. Findings: No rash. Neurological: General: No focal deficit present. Mental Status: She is alert and oriented to person, place, and time. Cranial Nerves: No cranial nerve deficit. Motor: No weakness. Psychiatric: Mood and Affect: Mood normal. MDM MDM 15 yoF h/o migraines, anxiety, and depression p/w 6 weeks of abdominal pain, NBNB emesis, diarrhea (intemittently bloody). Patient is overall well-appearing. Has had a work-up and CT scan for similarsymptoms a few weeks ago which was unrevealing. Stool studies sent by PCP were reportedly negative but unable to see. Per chart review, patient has not lost significant weight over last a few weeks and has been afebrile. Differential includes IBD vs celiac vs abdominal migraines vs bacterial enteritis vs ova/parasite infection vs IBS (would not expect bloody diarrhea and vomiting not typical) vs cyclic vomiting. Low concern for appendicitis (time course and exam not consistent) vs pancreatitis vs cholecystitis. Will obtain blood work, urine, and stool studies including Celiac screen and inflammatory markers. If labs look reassuring, will plan on outpatient GI referral with [facility] for symptomatic relief until appointment. If labs concerning, will consult GI in ED. Mom and patient agreeable. ED Course as of Jun 04 1019 Time: 06/04 0750 Comment: I have reviewed and confirmed the history and personally examined the patient. I discussedthe findings, interventions, and diagnostic testing with Dr. Lopez. I agree with the findings aspresented with exceptions in our respective documentation. In brief, 15 yo female hx of migraine, anxiety, depression, vomiting, diarrhea, bloody stools, weight loss x 6 weeks. Daily emesis, diarrhea 4-5 days with crampy abd pain. At times with blood mixed into stool. Abd pain in b/l lower quadrants. No fevers. Hx of float trip in river and swimming in March. OSH 2 weeks ago, UTI discharged with Bactrim. Seen by PCP, collected stool cxs which were negative. Per EMR, has weight gain since last visit with PCP. On exam, VS as documented. Child is well appearing. PERRLA, conjunctiva clear, MMM, no pharyngeal erythema, no significant LAD, neck supple. RRR, normal S1/S2, +2 peripheral pulses, < 2-3 sec cap refill. Lungs CTAB without wheezing or crackles, no increased work of breathing. Abdomen is soft, +BS x 4, mild TTP b/l lower abd, nondistended, no rebound or guarding. No rashes noted. No peripheral swelling. Moves all 4 extremities. On neuro exam, no focal deficits. Plan: Labs, zofran. Reassess. Labs grossly wnl. Mild elevated WBC. Patient appears well hydrated and denies pain at this time. VS stable. Will dc home with Zofran and bentyl for symptomatic management. GI referral placed. Stool studies pending. Recommended PMD f/u within 3-4 days. Return precautions discussed. By: Alesha Guajardo MD Time: 06/04 945 Comment: Labs reassuring. Mild leukocytosis but inflammatory markers normal. Electrolytes normal despite daily vomiting. Weight stable from ED visit 2 weeks ago. No clinical signs of dehydration. Will discharge home with PRN Zofran and Bentyl and GI referral. By: Stacy Lopez MD Final diagnoses: Abdominal pain Nausea and vomiting, intractability of vomiting not specified, unspecified vomiting type Diarrhea, unspecified type Stacy Lopez MD 06/04/21 1019 Cosigned by Alesha Guajardo MD at 06/06/2021 4:05 AM CDT * Kira London RN - 06/04/2021 6:20 AM CDT Bed: [id number] Expected date: Expected time: Means of arrival: Car Comments: Kira London RN 06/04/21 0620 * Karine Braswell RN - 06/04/2021 6:08 AM CDT Abdominal pain for last few week, vomiting and diarrhea for last few weeks, intermittently bright red blood in stool, 20 lb weight loss, no fevers. documented in this encounter Plan of Treatment Not on file documented as of this encounter Procedures Procedure Name Priority Date/Time Associated Diagnosis Comments URINALYSIS AND REFLEX TO MICROSCOPIC STAT 06/04/2021 9:16 AM CDT OVA AND PARASITE EXAMINATION STAT 06/04/2021 9:16 AM CDT HCG, URINE, QUALITATIVE STAT 06/04/20 9:16 AM CDT CRYPTOSPORIDIUM AND GIARDIA ANTIGEN ASSAY STAT 06/04/2021 9:16 AM CDT STOOL CULTURE STAT 06/04/2021 9:16 AM CDT DIFFERENTIAL AUTO STAT 06/04/2021 8:4 0 AM CDT THYROID FUNCTION CASCADE Routine 06/04/2021 8:40 AM CDT CBC WITH AUTO DIFFERENTIAL STAT 06/04/2021 8:40 AM CDT TISSUE TRANSGLUTAMINASE, IGA STAT 06/04/2021 8:40 AM CDT ERYTHROCYTE SEDIMENTATION RATE STAT 06/04/2021 8:40 AM CDT CRP (ACUTE PHASE) STAT 06/04/2021 8:4 0 AM CDT LIPASE STAT 06/04/2021 8:40 AM CDT IGA STAT 06/04/2021 8:40 AM CDT COMPREHENSIVE METABOLIC PANEL STAT 06/04/2021 8:40 AM CDT documented in this encounter Results * hCG, urine, qualitative (06/04/2021 9:16 AM CDT) HCG, ur Negative Negative [facility] Urine 06/04/2021 9:16 AM CDT 06/04/2021 9:22 AM CDT Stacy Lopez MD LAB URINE ORDERA BLES Final Result Performing Organization Address City/[facility]/[place] [address] * Cryptosporidium and giardia antigen assay Stool (06/04/2021 9:16 AM CDT) Report Final Report: Negative for Giardia lamblia antigen Negative for Cryptosporidium antigen [facility] Comment:Testing performed by : [facility], [address] [place] [address]., [id number] Organism NEGATIVE FOR GIARDIA LAMBLIA ANTIGEN [facility] Organism NEGATIVE FOR CRYPTOSPORIDIUM ANTIGEN [facility] Stool 06/04/2021 9:16 AM CDT 06/04/2021 10:15 AM CDT Narrative [facility] - 06/07/2021 9:33 AM CDT Interpretive data: Testing performed by the [facility] using an immunoassay that detects Cryptosporidium and Giardia antigens in stool specimens. If comprehensive examination for ova and parasites is required, please request Ova and Parasite Examination . Current interpretative data was revised September 2020. Stacy Lopez MD LAB MICROBIOLOGY - GENERAL ORDERABLES Final Result [facility] [place] [address] * Ova and parasite examination Stool (06/04/2021 9:16 AM CDT) Report Final Report: No parasites detected. Note: treatment with antibiotics; e.g., Clindamycin, Metronidazole , Tetracycline, and Trimethoprim- sulfa can adversely affect the detection of ova and parasites. [facility] Comment:Testing performed by : [facility], [address] [place]., [id number] Stool 06/04/2021 9:16 AM CDT 06/04/2021 10:15 AM CDT Stacy Lopez MD LAB MICROBIOLOGY - GENERAL ORDERABLES Final Result Performing Organization Address [facility] [place] [address] * Stool culture Stool Rectum (06/04/2021 9:16 AM CDT) Direct Specimen Exam Shiga Toxin Testing: Antigen detection assay for Shiga-toxin NEGATIVE for Shiga Toxin 1 and Shiga Toxin 2. [facility] Comment:Testing performed by : [facility], [address] [place]., [address] Report Final Report: No growth of enteric bacterial pathogens [facility] Comment:Testing performed by : [facility], [address] [place] [address]., [id number] Stool (Rectum) 06/04/2021 9: 16 AM CDT 06/04/2021 10:15 AM CDT Narrative [facility] - 06/08/2021 8:36 AM CDT Testing performed by [facility] ([phone]). Routine stool cultures include procedures to detect Salmonella, Shigella, Edwardsiella, Aeromonas, Pleisiomonas, Campylobacter, Yersinia, E. coli O157, and Shiga-like toxins. ?? Vibrio is cultured only upon special request. ??If Vibrio is suspected, please call the laboratory at [phone]. Interpretive data was last updated January 02, 2017. Stacy Lopez MD LAB MICROBIOLOGY - GENERAL ORDERABLES Final Result Performing Organization Address [facility] de Phone Number [facility] [place] [address] * Urinalysis reflex to microscopic (06/04/2021 9:16 AM CDT) Color, ur Straw Yellow [facility] Clarity, ur Clear Clear [facility] Specific gravity, ur 1.011 1.003 - 1.030 [facility] pH, urine 7.5 [facility] Protein, ur ql Negative Negative [facility] Glucose, ur ql Negative Negative [facility] Ketones, ur Negative Negative [facility] Bilirubin, ur Negative Negative [facility] Blood, ur Negative Negative [facility] Urobilinogen, ur <2.0 <2.0 mg/dL [facility] Nitrite, ur Negative Negative [facility] Leukocyte esterase, ur Negative Negative [facility] UA reflex comment Reflex conditions for microscopic UA not met. [facility] Urine 06/04/2021 9:16 AM CDT 06/04/2021 9:22 AM CDT Narrative [facility] - 06/04/2021 9:29 AM CDT ?? Urine pH is affected by diet, medications, systemic acid-base disturbances, and renal tubular function. ??pH may affect urinary stone formation. ??For example, urine pH below 6.0 may help reduce the tendency for calcium phosphate stones and pH greater than 6.0 may reduce the tendency for uric acid stone formation. Source: [facility]. Last revised 09-07-2017 us Stacy Lopez MD LAB URINE ORDERA BLES Final Result [facility] [place] [address] * (ABNORMAL) Differential, auto (06/04/2021 8:40 AM CDT) Neutrophil abs 8.9(H) 1.7 - 6.5 K/cumm [facility] Imm gran abs 0.1 0.0 - 0.1 K/cumm [facility] Lymphocyte abs 2.4 0.8 - 3.3 K/cumm [facility] Monocyte abs 1.1(H) 0.2 - 0.8 K/cumm [facility] Eosinophil abs 0.2 0.0 - 0.5 K/cumm [facility] Basophil abs 0.0 0.0 - 0.1 K/cumm [facility] Neutrophil pct 70.2 % [facility] Comment: Interpretive Data Percent cell count reference ranges are not reported, since discordance with absolute values may lead to misinterpretation of CBC data. Current Interpretive Data was last revised on 2017. Imm gran pct 0.5 % [facility] Comment: Interpretive Data Percent cell count reference ranges are not reported, since discordance with absolute values may lead to misinterpretation of CBC data. Current Interpretive Data was last revised on 2017. Lymphocyte pct 18.7 % [facility] Comment: Interpretive Data Percent cell count reference ranges are not reported, since discordance with absolute values may lead to misinterpretation of CBC data. Current Interpretive Data was last revised on 2017. Monocyte pct 8.9 % [facility] Comment: Interpretive Data Percent cell count reference ranges are not reported, since discordance with absolute values may lead to misinterpretation of CBC data. Current Interpretive Data was last revised on 2017. Eosinophil pct 1.4 % [facility] Comment: Interpretive Data Percent cell count reference ranges are not reported, since discordance with absolute values may lead to misinterpretation of CBC data. Current Interpretive Data was last revised on 2017. Basophil pct 0.3 % [facility] Comment: Interpretive Data Percent cell count reference ranges are not reported, since discordance with absolute values may lead to misinterpretation of CBC data. Current Interpretive Data was last revised on 2017. Blood 06/04/2021 8:40 AM CDT 06/04/2021 8:42 AM CDT us Stacy Lopez MD LAB BLOOD ORDERA BLES Final Result [facility] [place] [address] * TSH reflex to free T4 (06/04/2021 8:40 AM CDT) TSH 2.09 0.30 - 4.20 mcIUnit/mL [facility] Blood 06/04/2021 8:40 AM CDT 06/04/2021 8:42 AM CDT Stacy Lopez MD LAB BLOOD ORDERA BLES Final Result [facility] [place] [address] * IgA (06/04/2021 8:40 AM CDT) Immunoglobulin A 159.0 70.0 - 400.0 mg/dL [facility] Blood 06/04/2021 8:40 AM CDT 06/04/2021 8:42 AM CDT Stacy Lopez MD LAB BLOOD ORDERA BLES Final Result Performing Organization Address [facility] [place] [address] * Tissue transglutaminase IgA (TGG-IgA Ab) (06/04/2021 8:40 AM CDT) Pathologist [facility] TTG ab, IgA <0.5 <=14.9 units/mL [facility] Comment: Interpretive data Negative: <15 units/mL Positive: > or equal to 15 units/mL Current interpretive data was last revised on 2016. Testing performed by: [facility], [address] [facility], [place]., [address] Blood 06/04/2021 8:40 AM CDT 06/04/2021 10:45 AM CDT Stacy Lopez MD LAB [place]LOOD [place] [address] * Lipase (06/04/2021 8:40 AM CDT) Lipase 43 5 - 50 Units/L [facility] Blood 06/04/2021 8:40 AM CDT 06/04/2021 8:42 AM CDT Stacy Lopez MD LAB BLOOD ORDERA BLES Final Result Performing Organization Address City/State/[facility] [place] [address] * CRP (acute phase) (06/04/2021 8:40 AM CDT) CRP <3.0 <=10.0 mg/L [facility] Blood 06/04/2021 8:40 AM CDT 06/04/2021 8:42 AM CDT us Stacy Lopez MD LAB BLOOD ORDERA BLES Final Result Performing Organization Address City/[facility] [place] [address] * Erythrocyte sedimentation rate (06/04/2021 8:40 AM CDT) Erythrocyte sedimentation rate 8 3 - 13 mm/hr [facility] Blood 06/04/2021 8:40 AM CDT 06/04/2021 8:42 AM CDT Stacy Lopez MD LAB [place]LOOD [place] [address] * (ABNORMAL) Comprehensive metabolic panel (06/04/2021 8:40 AM CDT) Pathologist [facility] Sodium 139 135 - 145 mmol/L [facility] Potassium, pl 3.9 3.3 - 4.9 mmol/L [facility] Chloride 109 100 - 114 mmol/L [facility] CO2 24 20 - 30 mmol/L [facility] Anion gap 6 2 - 15 mmol/L [facility] BUN 10 9 - 18 mg/dL [facility] Creatinine 0.71 0.40 - 1.00 mg/dL [facility] Glucose 98 70 - 199 mg/dL [facility] Comment: Interpretive Data Fasting glucose >/= 126 mg/dl is diagnostic for diabetes. ?? Fasting is defined as no caloric intake for at least 8 hours. Fasting glucose between 100 mg/dl to 125 mg/dl is diagnostic of prediabetes. In a patient with classic symptoms of hyperglycemia or hyperglycemic crisis, a random glucose >/= 200 mg/dl is diagnostic for diabetes. In the absence of unequivocal hyperglycemia, results should be confirmed by repeat testing. The classification and Diagnosis of Diabetes Diabetes Care 2019; 42:S13-S28. Current interpretive data was last revised 2017. Calcium 9.7 8.5 - 10.3 mg/dL [facility] Bilirubin, total 0.3 0.1 - 1.2 mg/dL [facility] Protein, pl 6.6 6.5 - 8.5 g/dL [facility] Albumin 4.3 3.2 - 5.0 g/dL [facility] Alk phos 80 70 - 260 Units/L [facility] ALT 72(H) 7 - 45 Units/L [facility] AST 48 10 - 50 Units/L [facility] Blood 06/04/2021 8:40 AM CDT 06/04/2021 8:42 AM CDT us Stacy Lopez MD LAB BLOOD ORDERA BLES Final Result [facility] [place] [address] * (ABNORMAL) CBC with auto differential (06/04/2021 8:40 AM CDT) Path[facility] Center WBC 12.6(H) 3.8 - 9.9 K/cumm [facility] Hgb 12.8 11.9 - 15.5 g/dL [facility] Hct 38.4 35.6 - 45.5 % [facility] Plt 468(H) 150 - 400 K/cumm [facility] MPV 9.4 9.1 - 12.3 fL [facility] RBC 4.25 3.90 - 5.20 M/cumm [facility] MCV 90.4 81.3 - 96.4 fL [facility] MCH 30.1 27.1 - 33.3 pg [facility] MCHC 33.3 32.3 - 35.7 g/dL [facility] RDW CV 13.2 11.1 - 14.9 % [facility] RDW SD 43.6 35.7 - 48.1 fL [facility] NRBC abs 0.00 0.00 - 0.01 K/cumm [facility] Blood (Blood, Venous) 06/04/2021 8:40 AM CDT 06/04/2021 8:42 AM CDT Stacy Lopez MD LAB BLOOD ORDERA BLES Final Result Performing Organization Address City/State/[facility] Co de Phone Number [facility] Department [place] [address] documented in this encounter Visit Diagnoses Diagnosis Abdominal pain- Primary Abdominal pain, unspecified site Nausea and vomiting, intractability of vomiting not specified, unspecified vomiting type Diarrhea, unspecified type documented in this encounter Administered Medications Inactive Administered Medications - up to 3 most recent administrations Medication Order MAR Action Action Date Dose Rate Site lidocaine 1% buffered injection 0.1 mL 0.1 mL, subcutaneous, Once, On Mon06/04/21 at 0810, For 1 dose, Maximum daily dose 0.1 mL/kg, Administer immediately prior to procedure. Given 06/04/2021 8:40 AM CDT 0.1 mL Other (Comment) ondansetron (ZOFRAN) 0.8 mg/mL oral solution 4 mg 4 mg, oral, Once, On Mon06/04/21 at 0857, For 1 dose Given 06/04/2021 9:14 AM CDT 4 mg documented in this encounter Discontinued Medications Medication Sig Discontinue Reason Start Date End Da te ondansetron ODT (ZOFRAN-ODT) 4 mg disintegrating tablet Take 1 tablet (4 mg total) by mouth every 8 (eight) hours as needed for nausea or vomiting 07/01/2020 06/04/2021 documented as of this encounter Active and Recently Administered Medications Times are shown in CDT. Scheduled Medication Order 06/02/2021 06/03/2021 06/04/2021 lidocaine 1% buffered injection 0.1 mL (COMPLETED) 0.1 mL, subcutaneous, Once, On Mon06/04/21 at 0810, For 1 dose, Maximum daily dose 0.1 mL/kg, Administer immediately prior to procedure. 0840 (Given - Provid er: Rupal Mullen, ROSENDO) ondansetron (ZOFRAN) 0.8 mg/mL oral solution 4 mg (COMPLETED) 4 mg, oral, Once, On Mon06/04/21 at 0857, For 1 dose 0914 (Given - Provid er: Rupal Mullen, ROSENDO) documented in this encounter Orders IV Count Last Ordered Date First Orde red Date INSERT PERIPHERAL IV 1 06/04/2021 documented in this encounter Care Teams Nitrator Operator Relationship Specialty Start Date End Date Jabari Bynum MD PCP - General 07/01/20 documented as of this encounter
--- OUTSIDE RECORDS SUMMARY | 2024-08-31 21:59 | XMS_ITS | Encounter Summary ---
Author Organization [facility] Healthcare Address [address] [place] [address] Care Team Providers Care Clinical Informatics Strategist Name Role Phone Larry Hendrix MD Primary Care Provider Reason for Visit * Reason Comments Neck Pain Encounter Details Date Type Department Care Team (Late st Contact Info) Description 08/08/2017 10:47 AM SOURCING CONSULTANT - 08/08/2017 12:30 PM SOURCING CONSULTANT Emergency [facility] Emergency Department [address] [place] [address] Aj Blount Jr., MD [address] [place] [id number] Acute strain of neck muscle, initial encounter (Primary Dx) Discharge Disposition: Discharge to home or self care Social History Tobacco Use Types Packs/Day Years Used Date Smoking Tobacco: Never Assessed Comments Unknown Sex and Gender Information Value Date Recorded Sex Assigned at Not on file Legal Sex Female 3:14 AM SOURCING CONSULTANT Gender Identity Not on file Sexual Orientation Not on file documented as of this encounter Last Filed Vital Signs Vital Sign Reading Time Taken Comments Blood Pressure 127/79 08/08/2017 10:56 AM SOURCING CONSULTANT Pulse 89 08/08/2017 10:56 AM SOURCING CONSULTANT Temperature 36.2 ??C (97.1 ??F) 08/08/2017 10:[address] Respiratory Rate 16 08/08/2017 10:56 AM SOURCING CONSULTANT Oxygen Saturation 100% 08/08/2017 10:56 AM SOURCING CONSULTANT Inhaled Oxygen Concentration - - Weight 61.2 kg (135 lb) 08/08/2017 10:56 AM SOURCING CONSULTANT Height 152.4 cm (5') 08/08/2017 10:56 AM SOURCING CONSULTANT Body Mass Index 26.37 08/08/2017 10:56 AM SOURCING CONSULTANT Body Mass Index Percentile 93.67% 08/08/2017 10: 56 AM SOURCING CONSULTANT Growth Chart: [facility] (Girls, 2- 20 Years) documented in this encounter Discharge Instructions * Attachments The following attachments cannot be sent through Care Everywhere. * Neck Sprain or Strain (German) documented in this encounter Medications at Time of Discharge naproxen (NAPROSYN,ALEVE) 500 mg tablet Take 1 tablet (500 mg total) by mouth 2 (two) times a day with meals. 15 tablet 08/08/2017 10/24/2017 documented as of this encounter Ordered Prescriptions Prescription Sig Dispense Quantity Refills Last Filled Start Date End Date naproxen (NAPROSYN,ALEVE) 500 mg tablet Take 1 tablet (500 mg total) by mouth 2 (two) times a day with meals. 15 tablet 08/08/2017 10/24/2017 documented in this encounter Discharge Disposition Disposition Code Departure Means Destination Discharge to home or self skilled nursing documented in this encounter ED Notes * Aj Blount Jr., MD - 08/08/2017 10:59 AM CST HPI Chief Complaint Patient presents with ??? Neck Pain 10:54 AM 08/08/2017 Pt is a 12 y/o female presenting to the ED c/o left-sided neck pain that started after she was hit in the right side of her head with a volleyball yesterday. The pain is exacerbated with movement of her head. Pt has applied Biofreeze and taken Ibuprofen with minimal improvement of pain. She denies any numbness or paresthesias in her upper extremities. Patient History History reviewed. No pertinent past medical history. No past surgical history on file. History reviewed. No pertinent family history. Social History Substance Use Topics ??? Smoking status: Not on file ??? Smokeless tobacco: Not on file ??? Alcohol use Not on file Review of Systems Review of Systems Musculoskeletal: Positive for neck pain. Neurological: Negative for numbness. All other systems reviewed and are negative. Physical Exam ED Triage Vitals [08/08/17 1056] Temp Pulse Resp BP SpO2 36.2 ??C (97.1 ??F) 89 16 127/79 100 % Temp src Heart Rate Source Patient Position BP Location FiO2 (%) Oral -- -- -- -- Physical Exam Constitutional: She appears well-developed and well-nourished. No distress. HENT: Head: Normocephalic and atraumatic. Eyes: Conjunctivae are normal. Neck: Neck supple. When patient or turns her head to the left there is pain on the left lateral aspect of the neck. Nomidline tenderness. Cardiovascular: Normal rate and regular rhythm. No murmur heard. Pulmonary/Chest: Effort normal and breath sounds normal. No respiratory distress. Abdominal: Soft. There is no tenderness. Musculoskeletal: She exhibits no edema. Neurological: She is alert. Skin: Skin is warm and dry. Nursing note and vitals reviewed. ED Course & MDM ED Course as of Aug 08 1219 Tue Aug 08, 2017 1216 Updated patient and family with all results. Will discharge with symptom control and follow-up. Patient and family understands and agrees with plan. All questions addressed. ED evaluation is negative for any acutely dangerous pathology. [JM] ED Course User Index [JM] Stone Villeda [facility] Stone Villeda, acting for and in the presence of Dr. Aj Blount Jr., MD. Signed by Johny Grigsby, 1101 08/08/2017. I, Aj Blount Jr., MD , have personally performed the services described in the documentation , reviewed the documentation, as recorded by the scribe in my presence, and it accurately and completely records my words and actions. Acute strain of neck muscle, initial encounter Aj Blount Jr., MD 08/08/17 1219 CING CONSULTANT * Jacquelyn Toth RN - 08/08/2017 10:58 AM CST Patient here from home with father stating she is experiencing pain in her neck when she turns her head to the left; patient states she was hit in the head with a volleyball during practice last night and her neck has hit ever since CING CONSULTANT documented in this encounter Plan of Treatment Not on file documented as of this encounter Procedures Procedure Name Priority Date/Time Associated Diagnosis Comments XR SPINE CERVICAL 2 OR 3 VIEWS ED 08/08/2017 11:43 AM SOURCING CONSULTANT documented in this encounter Results * XR Spine Cervical 2 or 3 Views (08/08/2017 11:43 AM SOURCING CONSULTANT) Anatomical Region Laterality Modality Spine N/A Computed Radiogr aphy Impressions 08/08/2017 11:50 AM SOURCING CONSULTANT NORMAL CERVICAL SPINE. Electronically signed by: German Martinez M.D. Narrative 08/08/2017 11:50 AM SOURCING CONSULTANT XR SPINE CERVICAL 2 OR 3 VIEWS HISTORY: NECK PAIN, FIRST STUDY. ??Hit by volleyball. ??Neck pain. COMPARISON: None available. FINDINGS: AP, odontoid and lateral projections of the cervical spine demonstrate normal alignment with no evidence of fracture. The prevertebral soft tissues are normal. Procedure Note German Martinez MD / Provider, MD Monica - 08/08/2017 XR SPINE CERVICAL 2 OR 3 VIEWS HISTORY: NECK PAIN, FIRST STUDY. Hit by volleyball. Neck pain. COMPARISON: None available. FINDINGS: AP, odontoid and lateral projections of the cervical spine demonstrate normal alignment with no evidence of fracture. The prevertebral soft tissues are normal. IMPRESSION: NORMAL CERVICAL SPINE. Electronically signed by: German Martinez M.D. Aj Blount Jr., MD IMG XR PROCEDURES Final Result documented in this encounter Visit Diagnoses Diagnosis Acute strain of neck muscle, initial encounter- Primary documented in this encounter Discontinued Medications Medication Sig Discontinue Reason Start Date End Da te butalbital-acetaminophen -caffeine (FIORICET) 50-325-40 mg per tablet take 1 Tablet by oral route 3 times every day prn 12/03/2013 08/08/2017 documented as of this encounter Care Teams Clinical Informatics Strategist Relationship Specialty [place] [address] [facility] [place] [address] PCP - General 06/08/17 10/25/17 documented as of this encounter
--- OUTSIDE RECORDS SUMMARY | 2024-08-31 21:59 | XMS_ITS | Encounter Summary ---
Author Organization [facility] Healthcare Address [address] [place] [address] Care Team Providers Care Grinder Watch Parts Name Role Phone Unavailable Primary Care Provider Unavailabl e Encounter Details Date Type Department Care Team (Late st Contact Info) Description 04/21/2013 7:52 PM CDT - 04/21/2013 10:17 PM CDT Hospital Encounter [facility] Farideh Pineda MD [address] [place] [address] Procedure not carried out for other reasons Social History Tobacco Use Types Packs/Day Years Used Date Smoking Tobacco: Never Assessed Comments Unknown Sex and Gender Information Value Date Recorded Sex Assigned at Not on file Legal Sex Female 3:14 AM EARTH MOVING TECHNICIAN Gender Identity Not on file Sexual Orientation Not on file documented as of this encounter Plan of Treatment Not on file documented as of this encounter Visit Diagnoses Diagnosis Procedure not carried out for other reasons documented in this encounter
--- OUTSIDE RECORDS SUMMARY | 2024-08-31 21:59 | XMS_ITS | Encounter Summary ---
Author Organization [facility] Healthcare Address [address] [place] [address] Care Team Providers Care Rebrander Name Role Phone Unavailable Primary Care Provider Unavailabl e Encounter Details Date Type Department Care Team (Late st Contact Info) Description 07/11/2011 1:01 PM BOARD MILL SUPERVISOR - 07/11/2011 2:09 PM BOARD MILL SUPERVISOR Hospital Encounter [facility] Farideh Pineda MD [address] [place] [address] Nonvenomous insect bite of hand; Bite of nonvenomous arthropod; Place of occurrence, place for recreation and sport; Other external cause of injury or poisoning Social History Tobacco Use Types Packs/Day Years Used Date Smoking Tobacco: Never Assessed Comments Unknown Sex and Gender Information Value Date Recorded Sex Assigned at Not on file Legal Sex Female 3:14 AM BOARD MILL SUPERVISOR Gender Identity Not on file Sexual Orientation Not on file documented as of this encounter Plan of Treatment Not on file documented as of this encounter Visit Diagnoses Diagnosis Nonvenomous insect bite of hand Bite of nonvenomous arthropod Place of occurrence, place for recreation and sport Other external cause of injury or poisoning documented in this encounter
--- OUTSIDE RECORDS SUMMARY | 2024-08-31 21:59 | XMS_ITS | Encounter Summary ---
Author Organization [facility] Healthcare Address [address] [place] [address] Care Team Providers Care Track Repair Laborer Name Role Phone Larry Hendrix MD Primary Care Provider [phone] Encounter Details Date Type Department Care Team (Late st Contact Info) Description 07/03/2017 8:45 AM COVER MAKER - 07/03/2017 9:54 AM COVER MAKER Emergency [facility] Emergency Department [address] [place] [address] Ed Adair MD [address] [place] [address] Discharge Disposition: Discharge to home or self care Social History Tobacco Use Types Packs/Day Years Used Date Smoking Tobacco: Never Assessed Comments Unknown Sex and Gender Information Value Date Recorded Sex Assigned at Not on file Legal Sex Female 3:14 AM COVER MAKER Gender Identity Not on file Sexual [...] Name Priority Date/Time Associated Diagnosis Comments XR CHEST PA LATERAL 2 VIEWS Routine 07/03/2017 3:16 PM COVER MAKER documented in this encounter Results * XR Chest Pa Lateral 2 Views (07/03/2017 3:16 PM COVER MAKER) Anatomical Region Laterality Modality Body, Chest N/A Radiographic Sadny ging 07/03/2017 3:16 PM COVER MAKER Narrative 07/03/2017 3:41 PM COVER MAKER XR Chest 2 Views ?[id number] ??Acc#: ??[id number] DATE OF EXAM: ??Nov ??2016 ?? XR Chest 2 Views ?[id number] HISTORY: Chest Discomfort. ??Cough. ??Difficulty breathing. COMPARISON: None available. FINDINGS: Heart size is normal. ??No infiltrate or effusion identified. IMPRESSION: NO ACUTE PULMONARY DISEASE. Electronically signed by: Fabian Mena M.D Interpreting Physician: ??FABIAN MENA M.D. ??Read on: ??Nov ??2016 ??9:41A Transcribed by: ??PSC ??On: Jun ??2016 ??9:39A Approved Electronically by: ??FABIAN MENA M.D. ??on: ??Nov ??2016 ??9:39A Ordering DR: FABIAN MAURICIO Attending DR: DR HARRY CASANOVA Attending: ??DR HARRY CASANOVA Requesting: ??FABIAN MAURICIO PA-C Requesting Fax: ??[phone] Attending Fax: ??-- Attending ID: ??[id number] Requesting ID: ??[id number] Report To 1 ID: ??[id number] Report To 1 Name: ??DR HARRY CASANOVA Report To 1 FAX: ??-- NextGen Order #: ?? Procedure Note Miscellaneous, Not In File - 07/03/2017 XR Chest 2 Views [id number] Acc#: [id number] DATE OF EXAM: Jul 03 2017 XR Chest 2 Views [id number] HISTORY: Chest Discomfort. Cough. Difficulty breathing. COMPARISON: None available. FINDINGS: Heart size is normal. No infiltrate or effusion identified. IMPRESSION: NO ACUTE PULMONARY DISEASE. Electronically signed by: Fabian Mena M.D Interpreting Physician: FABIAN MENA M.D. Read on: Jul 03 2017 9:41A Transcribed by: YAMILET On: Jul 03 2017 9:39A Approved Electronically by: FABIAN MENA M.D. on: Jul 03 2017 9:39A Ordering DR: FABIAN MAURICIO Attending DR: DR HARRY CASANOVA Attending: DR HARRY CASANOVA Requesting: FABIAN MAURICIO PA-C Requesting Attending Fax: -- Attending ID: [id number] Requesting ID: [id number] Report To 1 ID: [id number] Report To 1 Name: DR HARRY CASANOVA Report To 1 FAX: -- NextGen Order #: Fabian COHEN IMG XR PROCEDURES Final Resu lt documented in this encounter Visit Diagnoses Not on filedocumented in this encounter Care Teams Track Repair Laborer Relationship Specialty [place] [address] [place] [address] PCP - General 06/08/17 10/25/17 documented as of this encounter
--- OUTSIDE RECORDS SUMMARY | 2024-08-31 21:59 | XMS_ITS | Encounter Summary ---
Author Organization [facility] Healthcare Address [address] [place] [address] Care Team Providers Care I O Psychologist Name Role Phone Nelly Marcus Primary Care Provider Unavailabl e Encounter Details Date Type Department Care Team (Late st Contact Info) Description 12/21/2016 Orders Only [facility] Interim [phone] Unknown, Notinfile Social History Tobacco Use Types Packs/Day Years Used Date Smoking Tobacco: Never Assessed Comments Unknown Sex and Gender Information Value Date Recorded Sex Assigned at Not on file Legal Sex Female 3:14 AM GLAZE HANDLER Gender Identity Not on file Sexual Orientation Not on file documented as of this encounter Plan of Treatment Not on file documented as of this encounter Procedures Procedure Name Priority Date/Time Associated Diagnosis Comments URINE CULTURE STAT 12/21/2016 10:45 PM CDT documented in this encounter Results * Urine culture (12/21/2016 10:45 PM CDT) Report Final Report: Insignifican t growth based on current clinical standards. SUPRIYA MICHAEL (ROSEANNE) Comment:Testing performed by : [facility], [address] [place]., [address] Urine/Blood 12/21/2016 10:4 5 PM CDT 12/22/2016 1:19 AM CDT Narrative SUPRIYA MICHAEL (ROSEANNE) - 12/23/2016 6:27 AM CDT us Notinfile Unknown LAB MICROBIOLOGY - GENERAL ORD ERABLES Final Result [facility] ([facility]) [address] [facility] Department [place] [address] documented in this encounter Visit Diagnoses Not on filedocumented in this encounter Care Teams I O Psychologist Relationship Specialty Start Date End Date Nelly Marcus PCP - General 10/15/16 03/28/17 documented as of this encounter
--- OUTSIDE RECORDS SUMMARY | 2024-08-31 21:59 | XMS_ITS | Encounter Summary ---
Author Organization [facility] Healthcare Address [address] [place] [address] Care Team Providers Care Lime Mixer Name Role Phone Nelly Marcus Primary Care Provider Unavailalan e Encounter Details Date Type Department Care Team (Late st Contact Info) Description 12/18/2017 8:34 AM CDT - 12/18/2017 1:10 PM CDT Hospital Encounter [facility]IM [phone] Patti Pratt MD [address] [place] [address] Eliezer Hickman MD [address] [facility] [address] [place], [place] [id number] Discharge Disposition: Discharge to home or self care Social History Tobacco Use Types Packs/Day Years Used Date Smoking Tobacco: Never Smokeless Tobacco: Never Comments No Sex and Gender Information Value Date Recorded Sex Assigned at Not on file Legal Sex Female 3:14 AM BOX COVERER HAND Gender Identity Not on file Sexual Orientation Not on file documented as of this encounter Medications at Time of Discharge acetaminophen-asp irin-caffeine (EXCEDRIN MIGRAINE) 250-250-65 mg per tablet Take 2 tablets by mouth. 09/04/2020 ibuprofen (ADVIL,MOTRIN) 600 mg tablet 10/31/2017 06/16/2021 omeprazole (PriLOSEC) 20 mg capsule 11/06/2017 02/03/2018 documented as of this encounter Discharge Disposition Disposition Code Departure Means Destination Discharge to home or self care documented in this encounter Plan of Treatment Not on file documented as of this encounter Procedures Procedure Name Priority Date/Time Associated Diagnosis Comments LABORATORY REPORT 12/19/2017 12: 00 AM CDT CLINICAL PATHOLOGY REPORT 12/19/2017 12:00 AM CDT H. PYLORI UREASE SCREEN (LILA TEST) Routine 12/18/2017 10:55 AM CDT SURGICAL PATHOLOGY Routine 12/18/2017 10 :50 AM CDT HCG, URINE, QUALITATIVE Timed 12/19/19 18 9:02 AM CDT UPPER GASTROINTESTINAL ENDOSCOPY REPORT 12/18/2017 COLONOSCOPY REPORT 12/18/2017 DISCHARGE LABORATORY CUMULATIVE REPORT 12/18/2017 12:00 AM CDT SURGICAL PATHOLOGY 12/18/2017 12 :00 AM CDT documented in this encounter Results * LABORATORY REPORT (12/19/2017 12:00 AM CDT) Narrative 12/19/2017 12:00 AM CDT Ordered by an unspecified provider. Historical Provider LAB BLOOD ORDERABLES Hillary l Result * CLINICAL PATHOLOGY REPORT (12/19/2017 12:00 AM CDT) Narrative 12/19/2017 12:00 AM CDT Ordered by an unspecified provider. Historical Provider LAB PATHOLOGY ORDERABLES Final Result * H. pylori urease screen (LILA test) (12/18/2017 10:55 AM CDT) H. pylori, rapid (LILA) Negative [facility] Comment: LILA is an acronym for 'Campylobacter [...] data was last revised on 17. Tissue 12/18/2017 10:5 5 AM CDT 12/18/2017 12:48 PM CDT Narrative [facility] - 12/19/2017 4:33 PM CDT us Eliezer Hickman MD LAB MICROBIOLOGY - GEN ERAL ORDERABLES Final Result [facility] Department [place] [address] * Surgical pathology (12/18/2017 10:50 AM CDT) 12/18/2017 10:5 0 AM CDT 12/18/2017 2:34 PM CDT Narrative 12/19/2017 11:22 AM CDT [facility] Esthela Caraballo Laboratory [place] [address] [facility] FINAL Patient Name: ROSALBA LI ? Address: [facility] [address] [facility] ??Service: ??Pediatric Surg ??[place], [place] ??[address] ??Location: ??[facility] 6OPS Taken: 12/18/2017 Gender: F ?? Received: 12/18/2017 : 2005 (Age: 12) Hospital #: ??[id number] Accessioned: 12/18/2017 ?Patient Type: ??[facility] Same Day Surg Reported: 12/19/2017 ? Physician(s): Eliezer Hickman M.D. ? Diagnosis: A.. ??Small intestine, duodenum, endoscopic biopsy ? - No histopathologic abnormality B.. ??Stomach, antrum, endoscopic biopsy ? - No histopathologic abnormality C.. ??Esophagus, distal, endoscopic biopsy ? - No histopathologic abnormality D.. ??Small intestine, terminal ileum, endoscopic biopsy ? - No histopathologic abnormality E.. ??Large intestine, colon, endoscopic biopsy ? - No histopathologic abnormality F.. ??Large intestine, rectosigmoid, endoscopic biopsy ? - No histopathologic abnormality bxs/12/19/2017 10:28 By this signature, I attest that the above diagnosis is based upon my personal examination of the slides(and/or other material indicated in the diagnosis). ?? Estrellita Tobias M.D. ??Report Electronically Reviewed and Signed Out By ??Estrellita Tobias M.D. 12/19/2017 11:22:17 Microscopic Description and Comment: Microscopic examination substantiates the above cited diagnosis. ?Levy Mosqueda M.D. ?History: The patient is a 12-year-old girl who presents with lower abdominal pain and hematochezia. ??Operative procedure and findings: Pediatric upper GI endoscopy, pediatric colonoscopy: Normal esophagus. ??Normal lower third of esophagus. ??Biopsied. ??Normal stomach. ??Normal antrum. ??Biopsied. ??Normal examined duodenum. ??Normal second part of the duodenum. ??Biopsied. ??The rectosigmoid colon is normal. ??Biopsied. ??The descending colon to cecum is normal. ??Biopsied. ??The examined portion of the ileum was normal. ??Biopsied. Specimen(s) Received: A: Duodenum B: Antrum C: Distal esophagus D: Terminal ileum E: Colon F: Recto-sigmoid colon Gross Description: The specimen is received in six formalin filled containers, each labeled with Rosalba Li. ??The first container is labeled duodenum and consists of two pieces of tissue, measuring 0.6 x 0.2 x 0.2 cm and 0.2 x 0.2 x 0.2 cm. ??Labeled A1. ??Jar 0. The second container is labeled antrum and consists of two pieces of orozco-pink soft tissue, measuring 0.1 x 0.1 x 0.1 cm each. ??Labeled B1. ??Jar 0. The third container is labeled distal esophagus and consists of two pieces of orozco-pink soft tissue, measuring 0.2 x 0.2 x 0.1 cm each. ??Labeled. ??C1. ??Jar 0. The fourth container is labeled colon and consists of three pieces of orozco-pink soft tissue, measuring 0.2 x 0.2 x 0.1 cm each. ??Labeled D1. ??Jar 0. The fifth container is labeled colon and consists of multiple pieces of orozco- pink soft tissue, ranging in size from 0.4 x 0.2 x 0.1 cm to 0.1 x 0.1 x 0.1 cm. ??Labeled E1. ??Jar 0. The sixth container is labeled rectosigmoid and consists of multiple pieces of orozco-pink soft tissue, ranging in size from 0.6 x 0.2 x 0.1 cm to 0.1 x 0.1 x 0.1 cm. ??Labeled F1. Jar 0. 12/18/2017 16:07 ?Steven Sam MS, PA(ASCP) ? By this signature, I attest that the above diagnosis is based upon my personal examination of the slides(and/or other material). ?? Surgical Pathology report is available electronically in Clinical Desktop. The performance characteristics of some immunohistochemical stains, fluorescence in-situ hybridization tests and immunophenotyping by flow cytometry cited in this report (if any) were determined by the Surgical Pathology Department at [facility] as part of an ongoing quality assurance representative program and in compliance with federally mandated regulations drawn from the Clinical Laboratory Improvement Act of 1988 (CLIA '88). ??Some of these tests rely on the use of analyte specific reagents and are subject to specific labeling requirements by the US Food and Drug Administration. ??Such diagnostic tests may only be performed in a facility that is certified by the Department of [facility] and Human Services as a high complexity [...] performance characteristics determined by the Surgical Pathology Department of [facility]. ??It has not been cleared or approved by the U. S. Food and Drug Administration. Result [facility] Eliezer Hickman MD LAB PATHOLOGY ORDERABL ES Final Result * HCG, urine, qualitative (12/18/2017 9:02 AM CDT) HCG, ur Negative Negative [facility] Urine 12/18/2017 9:02 AM CDT 12/18/2017 9:02 AM CDT Narrative [facility] - 12/18/2017 9:09 AM CDT Result [facility] Eliezer Hickman MD LAB URINE ORDERABLES F inal Result [facility] Department [place] [address] * SURGICAL PATHOLOGY (12/18/2017 12:00 AM CDT) Narrative 12/18/2017 12:00 AM CDT Ordered by an unspecified provider. Result [facility] Historical Provider LAB PATHOLOGY ORDERABLES Final Result * DISCHARGE LABORATORY CUMULATIVE REPORT (12/18/2017 12:00 AM CDT) Narrative 12/18/2017 12:00 AM CDT Ordered by an unspecified provider. Result [facility] Historical Provider LAB BLOOD ORDERABLES Hillary l Result * COLONOSCOPY REPORT (12/18/2017) Anatomical Region Laterality Modality Other Result [facility] Provider Scanning GI PROCEDURE ORDERABLES Edited Result - Final * UPPER GASTROINTESTINAL ENDOSCOPY REPORT (12/18/2017) Anatomical Region Laterality Modality Other us Provider Scanning GI PROCEDURE ORDERABLES Edited Result - Final documented in this encounter Visit Diagnoses Not on filedocumented in this encounter Care Teams Lime Mixer Relationship Specialty Start Date End Date Nelly Marcus PCP - General 11/17/17 06/30/20 documented as of this encounter
--- OUTSIDE RECORDS SUMMARY | 2024-08-31 21:59 | XMS_ITS | Encounter Summary ---
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 - 09/28/2015 2:45 PM 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 Hospital Encounter [facility] Monroe Laureano MD [address] [facility] [place] [address] Procedure and treatment not carried out due to patient leaving prior to being seen by health care provider Social History Tobacco Use Types Packs/Day Years Used Date Smoking Tobacco: Never Assessed Comments Unknown Sex and Gender Information Value Date Recorded Sex Assigned at Not on file Legal Sex Female 3:14 AM 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 Gender Identity Not on file Sexual Orientation Not on file documented as of this encounter Medications at Time of Discharge butalbital-acetam inophen-caffeine (FIORICET) 50-325-40 mg per tablet take 1 Tablet by oral route 3 times every day prn 20 0 12/03/2013 08/08/2017 documented as of this encounter Plan of Treatment Not on file documented as of this encounter Visit Diagnoses Diagnosis Procedure and treatment not carried out due to patient leaving prior to being seen by health care provider documented in this encounter Care Teams Supervisor Order Takers Relationship Specialty Start Date End Date Irvin Osei MD [address] [place] [address] PCP - General 11/28/13 10/14/16 documented as of this encounter
--- OUTSIDE RECORDS SUMMARY | 2024-08-31 21:59 | XMS_ITS | Encounter Summary ---
Author Organization [facility] Healthcare Address [address] [place] [address] Care Team Providers Care Demo Coordinator Name Role Phone Nelly Marcus Primary Care Provider Unavailabl e Encounter Details Date Type Department Care Team (Latest Contact Info) Description 12/26/2016 11:18 PM CDT - 12/27/2016 3:01 AM CDT Hospital Encounter [facility] [place] [address] Harry Ku MD [address] [place] [address] Jessy Puckett MD [address] [place] [address] Discharge Disposition: Discharge to home or self care Social History Tobacco Use Types Packs/Day Years Used Date Smoking Tobacco: Never Assessed Comments Unknown Sex and Gender Information Value Date Recorded Sex Assigned at Not on file 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 Gender Identity Not on file Sexual Orientation [...] Procedure Name Priority Date/Time Associated Diagnosis Comments DIFFERENTIAL AUTO STAT 12/27/2016 2:1 1 AM CDT CREATININE, WHOLE BLOOD STAT 12/27/2016 2:11 AM CDT CALCIUM, IONIZED STAT 12/27/2016 2:11 AM CDT GLUCOSE, WHOLE BLOOD STAT 12/27/2016 2:11 AM CDT ELECTROLYTES, WHOLE BLOOD STAT 12/27/2016 2:11 AM CDT ERYTHROCYTE SEDIMENTATION RATE STAT 12/27/2016 2:11 AM CDT CBC WITHOUT DIFFERENTIAL STAT 12/27/2016 2:11 AM CDT CRP, HIGH SENSITIVITY STAT 12/27/2016 2:11 AM CDT LIPASE STAT 12/27/2016 2:11 AM CDT documented in this encounter Results * CRP, high sensitivity (12/27/2016 2:11 AM CDT) hsCRP 0.7 <=10.0 mg/L [facility] Comment: Interpretive Data Values >10 mg/L are indicative of inflammation. No ranges have been established for assessment of cardiac disease risk in children. High risk (>3.0 mg/L), average risk (1.0-3.0 mg/L), and low risk (<1.0 mg/L)tertiles have been established for evaluation of cardiac disease risk in adults (Circulation 2003; 107:499-511). Current interpretive data was last revised on 2009. Blood specimen (specimen) 12/27/2016 2:11 AM CDT 12/27/2016 2:12 AM CDT us Edith Yung MD LAB BLOOD ORDERABLES Final Result [facility] [place] [place] [address] * Lipase (12/27/2016 2:11 AM CDT) Pathologist [facility] Lipase 32 5 - 50 Units/L [facility] Blood specimen (specimen) 12/27/2016 2:11 AM CDT 12/27/2016 2:12 AM CDT Edith Yung MD LAB BLOOD ORDERABLES Final Result Performing Organization Address [facility] [place] [address] * Erythrocyte sedimentation rate (12/27/2016 2:11 AM CDT) Pathologist [facility] Erythrocyte sedimentation rate 8 0 - 20 mm/H [facility] Blood specimen (specimen) 12/27/2016 2:11 AM CDT 12/27/2016 2:12 AM CDT Edith Yung MD LAB BLOOD ORDERABLES Final Result Performing Organization Address [facility] [place] [address] * Differential, auto (12/27/2016 2:11 AM CDT) Neutrophil abs 5.17 1.50 - 9.40 K/cumm [facility] Lymphocyte abs 3.61 1.00 - 7.20 K/cumm [facility] Monocyte abs 0.82 0.10 - 1.70 K/cumm [facility] Eosinophil abs 0.25 0.10 - 1.60 K/cumm [facility] Basophil abs 0.04 0.00 - 0.30 K/cumm [facility] Imm gran abs 0.03 0.00 - 0.20 K/cumm [facility] Neutrophil pct 52.1 % [facility] Lymphocyte pct 36.4 % [facility] Monocyte pct 8.3 % [facility] Eosinophil pct 2.5 % [facility] Basophil pct 0.4 % [facility] Imm gran pct 0.3 % [facility] Blood specimen (specimen) 12/27/2016 2:11 AM CDT 12/27/2016 2:12 AM CDT Edith Yung MD LAB BLOOD ORDERABLES Final Result Performing Organization Address [facility] Co de Phone Number [facility] [place] [address] * (ABNORMAL) CBC without differential (12/27/2016 2:11 AM CDT) WBC 9.92(H) 3.80 - 9.90 K/cumm [facility] RBC 4.55 3.90 - 5.20 M/cumm [facility] Hgb 13.3 11.9 - 15.5 g/dL [facility] Hct 38.0 35.6 - 45.5 % [facility] MCV 83.5 81.3 - 96.4 fL [facility] MCH 29.2 27.1 - 33.3 pg [facility] MCHC 35.0 32.3 - 35.7 g/dL [facility] RDW CV 13.0 11.1 - 14.9 % [facility] RDW SD 39.3 35.7 - 48.1 fL [facility] Plt 434(H) 150 - 400 K/cumm [facility] MPV 9.2 9.1 - 12.3 fL [facility] NRBC abs 0.00 0.00 - 0.01 K/cumm [facility] NRBC 0.0 % [facility] Blood specimen (specimen) 12/27/2016 2:11 AM CDT 12/27/2016 2:12 AM CDT Edith Yung MD LAB BLOOD ORDERABLES Final Result Performing Organization Address [facility]/ZIP Co de Phone Number [facility] [place] [address] * Creatinine, whole blood (12/27/2016 2:11 AM CDT) Creatinine, bld 0.7 0.4 - 1.0 mg/dL [facility] Blood specimen (specimen) 12/27/2016 2:11 AM CDT 12/27/2016 2:12 AM CDT Edith Yung MD LAB BLOOD ORDERABLES Final Result Performing Organization Address [facility] [place] [address] * Electrolytes, whole blood (12/27/2016 2:11 AM CDT) Sodium, Whole Blood 140 135 - 145 mmol/L [facility] Potassium, bld 3.8 3.3 - 4.9 mmol/L [facility] Chloride, bld 110 100 - 114 mmol/L [facility] CO2, Total Calculated, Whole Blood 25 20 - 30 mmol/L [facility] Anion Gap, Whole Blood 6 mmol/L [facility] Blood specimen (specimen) 12/27/2016 2:11 AM CDT 12/27/2016 2:12 AM CDT Edith Yung MD LAB BLOOD ORDERABLES Final Result Performing Organization Address [facility] [place] [address] * Calcium, ionized, whole blood (12/27/2016 2:11 AM CDT) Ca, ionized, bld 5.04 3.90 - 5.20 mg/dL [facility] Blood specimen (specimen) 12/27/2016 2:11 AM CDT 12/27/2016 2:12 AM CDT Edith Yung MD LAB BLOOD ORDERABLES Final Result Performing Organization Address [facility] [place] [address] * Glucose, whole blood (12/27/2016 2:11 AM CDT) Glucose, bld 106 70 - 199 mg/dL [facility] Blood specimen (specimen) 12/27/2016 2:11 AM CDT 12/27/2016 2:12 AM CDT us Edith Yung MD LAB BLOOD ORDERABLES Final Result [facility] [place] [address] documented in this encounter Visit Diagnoses Not on filedocumented in this encounter Care Teams Demo Coordinator Relationship Specialty Start Date End Date Nelly Marcus PCP - General 10/15/16 03/28/17 documented as of this encounter
--- OUTSIDE RECORDS SUMMARY | 2024-08-31 21:59 | XMS_ITS | Encounter Summary ---
Author Organization [facility] Healthcare Address [address] [place] [address] Care Team Providers Care Grant Officer Name Role Phone Unavailable Primary Care Provider Unavailabl e Encounter Details Date Type Department Care Team (Late st Contact Info) Description 05/03/2009 9:30 PM CDT - 05/03/2009 10:35 PM CDT Hospital Encounter [facility] Ed Aadir MD [address] [address] Nelly Marcus Contusion of foot; Accidentally caught in or between objects; Place of occurrence, home Social History Tobacco Use Types Packs/Day Years Used Date Smoking Tobacco: Never Assessed Comments Unknown Sex and Gender Information Value Date Recorded Sex Assigned at Not on file 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
--- OUTSIDE RECORDS SUMMARY | 2024-08-31 21:59 | XMS_ITS | Encounter Summary ---
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
--- OUTSIDE RECORDS SUMMARY | 2024-08-31 21:59 | XMS_ITS | Encounter Summary ---
Author Organization [facility] Healthcare Address [address] [place] [address] Care Team Providers Care Side Trimmer Name Role Phone Larry Hendrix MD Primary Care Provider Reason for Visit * Reason Comments Diarrhea Vomiting Encounter Details Date Type Department Care Team (Late st Contact Info) Description 10/24/2017 10:06 PM FLOOR STEWARD/STEWARDESS - 10/25/2017 12:47 AM FLOOR STEWARD/STEWARDESS Emergency [facility] Emergency Department [address] [place] [id number] Andreea Locke Vomiting and diarrhea (Primary Dx) Discharge Disposition: Discharge to home or self care Social History Tobacco Use Types Packs/Day Years Used Date Smoking Tobacco: Never Smokeless Tobacco: Never Comments No Sex and Gender Information Value Date Recorded Sex Assigned at Not on file Legal Sex Female 3:14 AM FLOOR STEWARD/STEWARDESS Gender Identity Not on file Sexual Orientation Not on file documented as of this encounter Last Filed Vital Signs Vital Sign Reading Time Taken Comments Blood Pressure 105/73 10/25/2017 12:30 AM FLOOR STEWARD/STEWARDESS Pulse 82 10/24/2017 10:13 PM FLOOR STEWARD/STEWARDESS Temperature 36.9 ??C (98.4 ??F) 10/24/2017 1 0:13 PM FLOOR STEWARD/STEWARDESS Respiratory Rate 20 10/24/2017 10:1 3 PM FLOOR STEWARD/STEWARDESS Oxygen Saturation 98% 10/24/2017 10: 13 PM FLOOR STEWARD/STEWARDESS Inhaled Oxygen Concentration - - Weight 67 kg (147 lb 11.3 oz) 8 10:13 PM FLOOR STEWARD/STEWARDESS Height 162.6 cm (5' 4 ) 10/24/2017 10:1 3 PM FLOOR STEWARD/STEWARDESS Body Mass Index 25.35 10/24/2017 10:13 PM FLOOR STEWARD/STEWARDESS Body Mass Index Percentile 91.22% 10/24 10:13 PM FLOOR STEWARD/STEWARDESS Growth Chart: [facility] (Girls, 2- 20 Years) documented in this encounter Discharge Instructions * Attachments The following attachments cannot be sent through Care Everywhere. * Gastroenteritis in Children (AfterCare(R) Instructions(ER/ED)) (Slovak) documented in this encounter Medications at Time of Discharge ondansetron (ZOFRAN) 4 mg tablet Take 1 tablet (4 mg total) by mouth every 8 (eight) hours as needed for nausea or vomiting. 8 tablet 10/25/2017 11/30/2017 documented as of this encounter Ordered Prescriptions Prescription Sig Dispense Quantity Refills Last Filled Start Date End Date ondansetron (ZOFRAN) 4 mg tablet Take 1 tablet (4 mg total) by mouth every 8 (eight) hours as needed for nausea or vomiting. 8 tablet 10/25/2017 11/30/2017 documented in this encounter Discharge Disposition Disposition Code Departure Means Destination Discharge to home or self care documented in this encounter ED Notes * Andreea Locke MD - 10/24/2017 11:35 PM CST HPI Chief Complaint Patient presents with ??? Diarrhea ??? Vomiting 2235Rosalba So is a 12 y/o female non-smoker that presents to the ED via father with complaints of mild diffuse abdominal cramping and episodes of emesis onset 2 days ago. She further notes having multiple episodes of diarrhea, with her last episode of emesis and diarrhea being this morning. Per patient's father, pt has also been experiencing some moderate lower back pain. She denies hematemesis, melena, hematochezia, fever and chills. There are no other complaints at this time. 11:35 PM: Lacie Jesus, scribing for and in the presence of Andreea Locke MD. I electronically signed this note at 11:35 PM on 10/24/2017. I, Andreea Locke, have personally performed the services described in the documentation , reviewed the documentation, as recorded by the scribe in my presence, and it accurately and completely records my words and actions. Patient History There are no active problems to display for this patient. History reviewed. No pertinent past medical history. History reviewed. No pertinent surgical history. History reviewed. No pertinent family history. Social History Substance Use Topics ??? Smoking status: Never Smoker ??? Smokeless tobacco: Never Used ??? Alcohol use Not on file Social History Social History Narrative ??? No narrative on file Review of Systems Review of Systems Constitutional: Negative for chills, fatigue and fever. HENT: Negative for congestion, ear pain, rhinorrhea, sneezing and sore throat. Respiratory: Negative for cough, shortness of breath and wheezing. Cardiovascular: Negative for chest pain and palpitations. Gastrointestinal: Positive for abdominal pain, diarrhea, nausea and vomiting. Negative for blood instool and constipation. No hematemesis. Genitourinary: Negative for dysuria, frequency, vaginal bleeding and vaginal discharge. Musculoskeletal: Positive for back pain. Negative for arthralgias, myalgias and neck pain. Skin: Negative for color change, pallor, rash and wound. Neurological: Negative for dizziness, syncope, weakness, light-headedness and headaches. All other systems reviewed and are negative. Physical Exam ED Triage Vitals [10/24/17 2213] Temp Pulse Resp BP SpO2 36.9 ??C (98.4 ??F) 82 20 126/81 98 % Temp src Heart Rate Source Patient Position BP Location FiO2 (%) Temporal -- -- -- -- Physical Exam Constitutional: She is oriented to person, place, and time. She appears well- developed and well-nourished. No distress. HENT: Head: Normocephalic and atraumatic. Eyes: Conjunctivae and EOM are normal. Right eye exhibits no discharge. Left eye exhibits no discharge. Neck: Normal range of motion. Neck supple. Cardiovascular: Normal rate, regular rhythm, normal heart sounds and intact distal pulses. Exam reveals no gallop and no friction rub. No murmur heard. Pulmonary/Chest: Effort normal and breath sounds normal. No respiratory distress. She has no wheezes. She has no rales. Abdominal: Soft. She exhibits no distension and no mass. There is tenderness (mild and generalized). There is no rebound and no guarding. No hernia. Musculoskeletal: Normal range of motion. She exhibits no edema, tenderness or deformity. Neurological: She is alert and oriented to person, place, and time. Skin: Skin is warm and dry. Capillary refill takes less than 2 seconds. No rash noted. No erythema.No pallor. Psychiatric: She has a normal mood and affect. Her behavior is normal. Nursing note and vitals reviewed. ED Course & MDM ED Course as of Oct 24 2344 Tue Oct 24, 2017 2335 Pt rechecked and states she is feeling better. Pt has tolerated PO intake. There is no RLQ TTP. Discussed lab findings and discharge plan with pt and father. She will be discharged home with a prescription for Zofran. They understand and agree with treatment. All questions were addressed and answered. [SB] 233 Pre-hypertension/Hypertension: The patient has been informed that they may have pre-hypertension or Hypertension based on a blood pressure reading in the Emergency Department. I recommend that the patient call the primary care provider listed on their discharge instructions or a physician of their choice this week to arrange follow up for further evaluation of possible pre- hypertension or Hypertension. [SB] ED Course User Index [SB] Lacie Jesus BP 126/81 Pulse 82 Temp 36.9 ??C (98.4 ??F) (Temporal) Resp 20 Ht 162.6 cm (5' 4 ) Wt 67 kg (147 lb 11.3 oz) LMP 10/10/2017 SpO2 98% BMI 25.35 kg/m?? Labs Reviewed CBC WITH AUTO DIFFERENTIAL - Abnormal Result Value WBC 12.0 (*) RBC 4.50 Hgb 13.2 Hct 39.0 MCV 86.7 MCH 29.3 MCHC 33.8 RDW CV 13.1 RDW SD 41.7 Platelets 507 (*) MPV 9.3 NRBC Abs 0.00 Narrative: COMPREHENSIVE METABOLIC PANEL - Abnormal Sodium 140 Potassium 4.4 CO2 27 BUN 10 Glucose 95 Creatinine 0.60 Calcium 9.8 Chloride 99 (*) Albumin 4.6 AST 25 ALT 18 Alk phos 130 Bilirubin 0.3 Protein, pl 7.9 Anion Gap 14 Narrative: DIFFERENTIAL AUTO - Abnormal Neutrophils 66.7 Immature granulocytes 0.3 Lymphocytes 20.4 (*) Monos 6.9 Eosinophils 5.4 Basophils 0.3 Neutrophil absolute 7.99 Immature granulocyte, abs 0.04 Lymphocytes, abs 2.44 Monos, abs 0.83 Eosinophils, abs 0.65 Basophils, abs 0.03 Narrative: URINALYSIS AND REFLEX TO MICROSCOPIC AND CULTURE Color, ur Yellow Clarity, ur Clear Specific gravity, ur 1.028 pH, ur 7.0 Protein, ur Negative Glucose, ur Negative Ketones, ur Negative Bilirubin, ur Negative Blood, ur Negative Urobilinogen, ur 1.0 Nitrites, ur Negative Leukocyte esterase, ur Negative Narrative: HCG, URINE, QUALITATIVE HCG, ur Negative Narrative: No orders to display MDM Number of Diagnoses or Management Options Amount and/or Complexity of Data Reviewed Clinical lab tests: ordered and reviewed Tests in the medicine section of CPT??: ordered and reviewed Decide to obtain previous medical records or to obtain history from someone other than the patient:yes Review and summarize past medical records: yes on reexamination patient had no right lower quadrant tenderness. Patient given IV fluids. Patient given nausea medication. Patient able to tolerate oral intake. Patient's labs reviewed. Patient had amild leukocytosis secondary to viral syndrome. Patient given strict return precautions including ifher pain migrated to the right lower quadrant or development of fevers. Patient prescribed a short course of Zofran as well. Patient told to follow up with polytechnic registrar. Her father was present as well. Patient agreed. Patient discharged. Vomiting and diarrhea Andreea Locke MD 10/25/17 0038 R STEWARD/STEWARDESS * Marjorie Lazcano RN - 10/24/2017 10:16 PM CST Vomiting and diarrhea, for a few days, for about one week R STEWARD/STEWARDESS documented in this encounter Plan of Treatment Not on file documented as of this encounter Procedures Procedure Name Priority Date/Time Associated Diagnosis Comments DISCHARGE LABORATORY CUMULATIVE REPORT 10/25/2017 12:00 AM FLOOR STEWARD/STEWARDESS DIFFERENTIAL AUTO STAT 10/24/2017 10: 57 PM FLOOR STEWARD/STEWARDESS URINALYSIS AND REFLEX TO MICROSCOPIC AND CULTURE STAT 10/24/2017 10:57 PM FLOOR STEWARD/STEWARDESS CBC WITH AUTO DIFFERENTIAL STAT 10/24/2017 10:57 PM FLOOR STEWARD/STEWARDESS HCG, URINE, QUALITATIVE STAT 10/24/2017 10:57 PM FLOOR STEWARD/STEWARDESS URINE CULTURE STAT 10/24/2017 10:57 PM FLOOR STEWARD/STEWARDESS COMPREHENSIVE METABOLIC PANEL STAT 10/24/2017 10:57 PM FLOOR STEWARD/STEWARDESS documented in this encounter Results * DISCHARGE LABORATORY CUMULATIVE REPORT (10/25/2017 12:00 AM FLOOR STEWARD/STEWARDESS) Narrative 10/25/2017 12:00 AM FLOOR STEWARD/STEWARDESS Ordered by an unspecified provider. us Historical Provider LAB BLOOD ORDERABLES Hillary l Result * Urine culture (10/24/2017 10:57 PM FLOOR STEWARD/STEWARDESS) Report Amended Report - Complete: Insignifican t growth based on current clinical standards. SUPRIYA SYKES) Comment:Testing performed by : [facility], [address] [place]., [address] Urine 10/24/2017 10:5 7 PM FLOOR STEWARD/STEWARDESS 10/25/2017 5:21 AM FLOOR STEWARD/STEWARDESS Narrative SUPRIYA MICHAEL (ROSEANNE) - 10/26/2017 8:05 AM FLOOR STEWARD/STEWARDESS Andreea Locke LAB MICROBIOLOGY - GENERAL ORDER COLT Edited Result - Final SUPRIYA MICHAEL (ROSEANNE) 1 [facility] Department [place] [address] * (ABNORMAL) Differential, auto (10/24/2017 10:57 PM FLOOR STEWARD/STEWARDESS) Neutrophil pct 66.7 33.0 - 70.0 % SUPRIYA MICHAEL (ROSEANNE) Imm gran pct 0.3 0.0 - 1.0 % SUPRIYA MICHAEL (ROSEANNE) Lymphocyte pct 20.4(L) 21.0 - 55.0 % SUPRIYA MICHAEL (ROSEANNE) Monocyte pct 6.9 3.0 - 13.0 % SUPRIYA MICHAEL (ROSEANNE) Eosinophil pct 5.4 2.0 - 12.0 % [facility] ([place]) Basophil pct 0.3 0.0 - 3.0 % [facility] ([place]) Neutrophil abs 7.99 1.50 - 9.40 K/cumm [facility] ([place]) Imm gran abs 0.04 0.00 - 0.20 K/cumm [facility] ([place]) Lymphocyte abs 2.44 1.00 - 7.20 K/cumm [facility] ([place]) Monocyte abs 0.83 0.10 - 1.70 K/cumm [facility] ([place]) Eosinophil abs 0.65 0.10 - 1.60 K/cumm [facility] ([place]) Basophil abs 0.03 0.00 - 0.30 K/cumm [facility] ([place]) Blood specimen (specimen) 10/24/2017 10:57 PM FLOOR STEWARD/STEWARDESS 10/24/2017 11:01 PM FLOOR STEWARD/STEWARDESS Narrative [facility] ([place]) - 10/24/2017 11:03 PM FLOOR STEWARD/STEWARDESS [facility] LAB BLOOD ORDERABLES Final Resul t [facility] ([place]) 1 [facility] [place] [address] * HCG, urine, qualitative (10/24/2017 10:57 PM FLOOR STEWARD/STEWARDESS) HCG, ur Negative Negative [facility] ([place]) Urine 10/24/2017 10:5 7 PM FLOOR STEWARD/STEWARDESS 10/24/2017 11:04 PM FLOOR STEWARD/STEWARDESS Narrative [facility] ([place]) - 10/24/2017 11:28 PM FLOOR STEWARD/STEWARDESS [facility] LAB URINE ORDERABLES Final Resul t [facility] ([place]) 1 [facility] [place] [address] * Urinalysis reflex to microscopic and culture (10/24/2017 10:57 PM FLOOR STEWARD/STEWARDESS) Color, ur Yellow Yellow [facility] ([place]) Clarity, ur Clear Clear [facility] ([place]) Specific gravity, ur 1.028 1.003 - 1.030 [facility] ([place]) Comment:Normal Ranges: 1.003 -1.030 pH, ur 7.0 4.5 - 8.0 [facility] ([place]) Comment:Normal ranges: 4.5-8 .0 Protein, ur ql Negative Negative mg/dL [facility] ([place]) Glucose, ur ql Negative Negative mg/dL [facility] ([place]) Ketones, ur Negative Negative [facility] ([place]) Bilirubin, ur Negative Negative [facility] ([place]) Blood, ur Negative Negative [facility] ([place]) Urobilinogen, ur 1.0 0.2 - 1.0 EhrUnit/dL [facility] ([place]) Comment:Normal Ranges: 0.2-1 .0 EU/dL Nitrites, ur Negative Negative [facility] ([place]) Leukocyte esterase, ur Negative Negative [facility] ([place]) Urine 10/24/2017 10:5 7 PM FLOOR STEWARD/STEWARDESS 10/24/2017 11:04 PM FLOOR STEWARD/STEWARDESS Narrative [facility] ([place]) - 10/24/2017 11:07 PM FLOOR STEWARD/STEWARDESS Andreea Locke LAB MICROBIOLOGY - GENERAL ORDER COLT Final Result [facility] ([place]) 1 [facility] Department [place] [address] * (ABNORMAL) Comprehensive metabolic panel (10/24/2017 10:57 PM FLOOR STEWARD/STEWARDESS) Sodium 140 135 - 145 mmol/L [facility] ([place]) Potassium, pl 4.4 3.3 - 4.9 mmol/L [facility] ([place]) CO2 27 20 - 30 mmol/L [facility] ([place]) BUN 10 9 - 18 mg/dL [facility] ([place]) Glucose 95 70 - 199 mg/dL [facility] ([place]) Comment: Interpretive Data Fasting glucose >/= 126 [...] classification and Diagnosis of Diabetes Diabetes Care 2017;40 (Suppl. 1):S11. Current interpretive data was last revised 2017. Creatinine 0.60 0.40 - 1.00 mg/dL [facility] ([place]) Calcium 9.8 8.5 - 10.3 mg/dL [facility] ([place]) Chloride 99(L) 100 - 114 mmol/L [facility] ([place]) Albumin 4.6 3.2 - 5.0 g/dL [facility] ([place]) AST 25 10 - 50 Units/L [facility] ([place]) Comment:Hemolysis present. R esults may be affected. ALT 18 10 - 40 Units/L [facility] ([place]) Alk phos 130 130 - 550 Units/L [facility] ([place]) Bilirubin, total 0.3 0.1 - 1.2 mg/dL [facility] ([place]) Protein, pl 7.9 6.5 - 8.5 g/dL [facility] ([place]) Anion gap 14 2 - 15 mmol/L [facility] ([place]) Blood specimen (specimen) 10/24/2017 10:57 PM FLOOR STEWARD/STEWARDESS 10/24/2017 11:01 PM FLOOR STEWARD/STEWARDESS [facility] - 10/24/2017 11:24 PM FLOOR STEWARD/STEWARDESS Andreea Locke LAB BLOOD ORDERABLES Final Resul t [facility] ([facility] 1 [facility] Department [place] [address] * (ABNORMAL) CBC with auto differential (10/24/2017 10:57 PM FLOOR STEWARD/STEWARDESS) WBC 12.0(H) 3.8 - 9.9 K/cumm [facility] ([place]) RBC 4.50 3.90 - 5.20 M/cumm [facility] ([place]) Hgb 13.2 11.9 - 15.5 g/dL [facility] ([place]) Hct 39.0 35.6 - 45.5 % [facility] ([place]) MCV 86.7 81.3 - 96.4 fL [facility] ([place]) MCH 29.3 27.1 - 33.3 pg [facility] ([place]) MCHC 33.8 32.3 - 35.7 g/dL [facility] ([place]) RDW CV 13.1 11.1 - 14.9 % [facility] ([place]) RDW SD 41.7 35.7 - 48.1 fL [facility] ([place]) Plt 507(H) 150 - 400 K/cumm [facility] ([place]) MPV 9.3 9.1 - 12.3 fL [facility] ([place]) NRBC abs 0.00 0.00 - 0.01 K/cumm [facility] ([place]) Blood specimen (specimen) 10/24/2017 10:57 PM FLOOR STEWARD/STEWARDESS 10/24/2017 11:01 PM FLOOR STEWARD/STEWARDESS Narrative [facility] ([place]) - 10/24/2017 11:03 PM FLOOR STEWARD/STEWARDESS Andreea Locke LAB BLOOD ORDERABLES Final Resul t SUPRIYA MICHAEL ([place]SE[place]NE) 1 [facility] Department [place] [address] documented in this encounter Visit Diagnoses Diagnosis Vomiting and diarrhea- Primary documented in this encounter Administered Medications Inactive Administered Medications - up to 3 most recent administrations Medication Order MAR Action Action Date Dose Rate Site ondansetron (ZOFRAN) injection 4 mg 4 mg, intravenous, Once, On Mon10/24/17 at 2245, For 1 dose, Indications: Nausea, VomitingIndications:Nausea, Vomiting Given 10/24/2017 11:02 PM FLOOR STEWARD/STEWARDESS 4 mg simethicone (MYLICON) chewable tablet 120 mg 120 mg (rounded from 125 mg), oral, Once, On Mon10/24/17 at 2245, For 1 dose Given 10/24/2017 11:03 PM FLOOR STEWARD/STEWARDESS 120 mg sodium chloride 0.9% bolus 1,000 mL 1,000 mL, intravenous, at 1,000 mL/hr, Administer over 1 Hours, Once, On Mon10/24/17 at 2245, For 1 dose New Bag 10/24/2017 10:59 PM FLOOR STEWARD/STEWARDESS 1,000 mL 1000 mL/hr documented in this encounter Discontinued Medications Medication Sig Discontinue Reason Start Date End Da te naproxen (NAPROSYN,ALEVE) 500 mg tablet Take 1 tablet (500 mg total) by mouth 2 (two) times a day with meals. 08/08/2017 10/24/2017 documented as of this encounter Active and Recently Administered Medications Times are shown in FLOOR STEWARD/STEWARDESS. Scheduled Medication Order 10/23/2017 10/24/2017 10/25/2017 ondansetron (ZOFRAN) injection 4 mg (COMPLETED) 4 mg, intravenous, Once, On Mon10/24/17 at 2245, For 1 dose, Indications: Nausea, Vomiting 2302 (Given - Provider: Jemma Bentley RN) simethicone (MYLICON) chewable tablet 120 mg (COMPLETED) 120 mg (rounded from 125 mg), oral, Once, On Mon10/24/17 at 2245, For 1 dose 2303 (Given - Provider: Jemma Bentley RN) sodium chloride 0.9% bolus 1,000 mL (COMPLETED) 1,000 mL, intravenous, at 1,000 mL/hr, Administer over 1 Hours, Once, On Mon10/24/17 at 2245, For 1 dose 2259 (New Bag - Provider: Jemma Bentley RN) 0000 (Stopped - Provider: Jemma Bentley RN) documented in this encounter Care Teams Side Trimmer Relationship Specialty [place] [address] [place] [address] PCP - General 06/08/17 10/25/17 documented as of this encounter
--- OUTSIDE RECORDS SUMMARY | 2024-08-31 21:59 | XMS_ITS | Encounter Summary ---
Author Organization [facility] Facility Care Team Providers Care Color Dipper Name Role Phone Irvin Osei MD Primary Care Provider [phone] Encounter Details Date Type Department Care Team (Late st Contact Info) Description 09/07/2016 8:51 AM STRIPPING SHOVEL OILER - 09/07/2016 11:59 PM STRIPPING SHOVEL OILER Hospital Encounter [facility] Nayan Munoz MD 1 [facility] [address] [place] [address] Anca Thomas NP [facility] [address] [place] [address] Displaced fracture of left acromial process with routine healing Social History Tobacco Use Types Packs/Day Years Used Date Smoking Tobacco: Never Assessed Comments Unknown Sex and Gender Information Value Date Recorded Sex Assigned at Not on file Legal Sex Female 3:14 AM STRIPPING SHOVEL OILER Gender Identity Not on file Sexual Orientation [...] Name Priority Date/Time Associated Diagnosis Comments XR SHOULDER 2+ VW Routine 09/07/2016 9:0 1 AM STRIPPING SHOVEL OILER documented in this encounter Results * XR Shoulder 2+ Vw (09/07/2016 9:01 AM STRIPPING SHOVEL OILER) Anatomical Region Laterality Modality Shoulder N/A Radiographic Sandy ging 09/07/2016 9:01 AM STRIPPING SHOVEL OILER Narrative 09/07/2016 10:28 AM STRIPPING SHOVEL OILER ROSANNE SHELTON M.D. ELANA TALAVERA M.D. FINAL REPORT The radiology attending physician has personally reviewed this study, and has reviewed and/or edited this written report and agrees with it. ACC# ??Date Time ??Exam [id number] Sep 07, 2016 09:01:00 [id number] SHOULDER MINIMUM 2 VIEWS L ACC# ??Date Time ??Exam [id number] Sep 07, 2016 09:01:00 [id number] SHOULDER MINIMUM 2 VIEWS L EXAMINATION: ?Left shoulder minimum 2 views HISTORY: ??Left acromion fracture FINDINGS: ?? Two views left shoulder are compared to the prior dated 08/11/2016. The lucency along the left acromion is less conspicuous, suggesting interval healing. Alignment of the fracture is difficult to assess without an axillary view. Alignment of the left glenohumeral joint is anatomic. Left glenohumeral joint space is normal. ?? IMPRESSION: 1. Findings suggesting a healing subtle avulsion fracture of the left acromial apophysis. An adjacent os acromiale is still a consideration. ?? Requested By: ANCA THOMAS PNP Dictated By: ?? ELANA TALAVERA M.D. ??on Sep 07 2016 ??9:51A This document has been electronically signed by: ROSANNE SHELTON M.D. on Sep 07 2016 10:28A Procedure Note Provider, MD Monica - 01/02/2017 Tamera REED M.D. FINAL REPORT The radiology attending physician has personally reviewed this study, and has reviewed and/or edited this written report and agrees with it. ACC# Date Time Exam [id number] Sep 07, 2016 09:01:00 [id number] SHOULDER MINIMUM 2 VIEWS L ACC# Date Time Exam [id number] Sep 07, 2016 09:01:00 [id number] SHOULDER MINIMUM 2 VIEWS L EXAMINATION: Left shoulder minimum 2 views HISTORY: Left acromion fracture FINDINGS: Two views left shoulder are compared to the prior dated 08/11/2016. The lucency along the left acromion is less conspicuous, suggesting interval healing. Alignment of the fracture is difficult to assess without an axillary view. Alignment of the left glenohumeral joint is anatomic. Left glenohumeral joint space is normal. IMPRESSION: 1. Findings suggesting a healing subtle avulsion fracture of the left acromial apophysis. An adjacent os acromiale is still a consideration. Requested By: ANCA THOMAS PNP Dictated By: ELANA TALAVERA M.D. on Sep 07 2016 9:51A This document has been electronically signed by: ROSANNE SHELTON M.D. on Sep 07 2016 10:28A us Historical Provider IMKennedi XR PROCEDURES Final R esult documented in this encounter Visit Diagnoses Diagnosis Displaced fracture of left acromial process with routine healing documented in this encounter Care Teams Color Dipper Relationship Specialty Start Date End Date Irvin Osei MD [address] [place] [address] PCP - General 11/28/13 10/14/16 documented as of this encounter
--- OUTSIDE RECORDS SUMMARY | 2024-08-31 21:59 | XMS_ITS | Encounter Summary ---
Author Organization [facility] Healthcare Address [address] [place] [address] Care Team Providers Care Cattle Tester Name Role Phone Jabari Bynum MD Primary Care Provider Reason for Visit * Reason Comments Headache Encounter Details Date Type Department Care Team (Late st Contact Info) Description 09/04/2020 8:19 AM PATTERN DRAFTER - 09/04/2020 9:10 AM PATTERN DRAFTER Emergency [facility] Emergency Department [address] [place] [address] Cory Wilson MD [address] [address] Chronic intractable headache, unspecified headache type (Primary Dx) Discharge Disposition: Discharge to home [...] on file Legal Sex Female 3:14 AM PATTERN DRAFTER Gender Identity Not on file Sexual Orientation Not on file documented as of this encounter Last Filed Vital Signs Vital Sign Reading Time Taken Comments Blood Pressure 129/92 09/04/2020 8:15 AM PATTERN DRAFTER Pulse 91 09/04/2020 8:15 AM PATTERN DRAFTER Temperature 36.8 ??C (98.3 ??F) 09/04/2020 8:15 AM CS T Respiratory Rate 16 09/04/2020 8:15 AM PATTERN DRAFTER Oxygen Saturation 100% 09/04/2020 8:15 AM PATTERN DRAFTER Inhaled Oxygen Concentration - - Weight 87.1 kg (192 lb) 09/04/2020 8:15 AM PATTERN DRAFTER Height 152.4 cm (5') 09/04/2020 8:15 AM PATTERN DRAFTER Body Mass Index 37.5 09/04/2020 8:15 AM PATTERN DRAFTER Body Mass Index Percentile 98.72% 09/04/2020 8:1 5 AM PATTERN DRAFTER Growth Chart: [facility] (Girls, 2- 20 Years) documented in this encounter Discharge Diagnoses Diagnosis Headache, unspecified - HEADACHE, UNSPECIFIED Gastro-esophageal reflux disease without esophagitis - GASTRO-ESOPHAGEAL REFLUX DISEASE WITHOUT ESOPHAGITIS documented in this encounter Discharge Instructions * Discharge Instructions* Cory Wilson MD - 09/04/2020 9:00 AM PATTERN DRAFTER Continue home medications ERN DRAFTER * Attachments The following attachments cannot be sent through Care Everywhere. * Headache, Unspecified (Romanian) documented in this encounter Medications at Time of Discharge citalopram (CeleXA) 10 mg tablet Take 10 mg by mouth daily 0 06/27/2018 acetaminophen-aspiri n-caffeine (EXCEDRIN MIGRAINE) 250-250-65 mg per tabletIndications:Ch ronic intractable headache, unspecified headache type Take 2 tablets by mouth every 8 (eight) hours as needed for headaches 30 tablet 09/04/2020 1 ibuprofen (ADVIL,MOTRIN) 600 mg tablet 10/31/2017 1 omeprazole (PriLOSEC) 20 mg capsule TAKE ONE CAPSULE BY MOUTH TWICE A DAY 60 capsule 1 02/05/2018 1 ondansetron ODT (ZOFRAN-ODT) 4 mg disintegrating tablet Take 1 tablet (4 mg total) by mouth every 8 (eight) hours as needed for nausea or vomiting 20 tablet 07/01/2020 1 documented as of this encounter Ordered Prescriptions Prescription Sig Dispense Quantity Refills Last Filled Start Date End Date acetaminophen-aspi rin-caffeine (EXCEDRIN MIGRAINE) 250-250-65 mg per tabletIndications: Chronic intractable headache, unspecified headache type Take 2 tablets by mouth every 8 (eight) hours as needed for headaches 30 tablet 09/04/2020 1 documented in this encounter Discharge Disposition Disposition Code Departure Means Destination Comment s Discharge to home or self group home documented in this encounter ED Notes * Cory Wilson MD - 09/04/2020 8:35 AM CST Chief Complaint Patient presents with ??? Headache HPI 09/04/2020 8:35 AM Rosalba So is a 15 y.o. female nonsmoker with a h/o chronic migraines, GERD, anxiety, and depression who presents to the ED with constant posterior headache for several weeks. Associated symptoms include nausea and vomiting, with 1 episode of emesis several days ago. No exacerbating or alleviating factors. Patient reports taking Advil without relief. She states that her current headache is less severe than her typical migraines. Patient's mother states that patient saw a neurologist for her migraines several years ago, but he ultimately discontinued her medication because she no longer needed it. No other complaints at this time. Per chart review: Patient presented to ED on 07/01/20 with the same complaint. Treated with Toradol,Compazine, Decadron, and 1 L IV fluid. Discharged on Zofran. Patient has previously seen Dr. Darwin Leal, Pediatric Neurology at [facility], for chronic migraines associated with nausea, phonophobia, and photophobia, onset around 2013. Most recent visitnoted in EMR was 07/27/16. At that time, patient was prescribed Topamax 25 mg nightly and Maxalt 5 mg PRN. History reviewed. No pertinent past medical history. History reviewed. No pertinent surgical history. History reviewed. No pertinent family history. Social History Tobacco Use ??? Smoking status: Never Smoker ??? Smokeless tobacco: Never Used Substance Use Topics ??? Alcohol use: Never Frequency: Never ??? Drug use: Not on file Review of Systems Review of Systems Constitutional: Negative for chills and fever. HENT: Negative for ear pain and sore throat. Eyes: Negative for pain and visual disturbance. Respiratory: Negative for cough and shortness of breath. Cardiovascular: Negative for chest pain and palpitations. Gastrointestinal: Positive for nausea and vomiting. Negative for abdominal pain. Genitourinary: Negative for dysuria and hematuria. Musculoskeletal: Negative for arthralgias and back pain. Skin: Negative for color change and rash. Neurological: Positive for headaches. Negative for seizures and syncope. All other systems reviewed and are negative. Physical Exam ED Triage Vitals [09/04/20814] Temp Pulse Resp BP SpO2 36.8 ??C (98.3 ??F) 91 16 (!) 129/92 100 % Temp src Heart Rate Source Patient Position BP Location FiO2 (%) Temporal -- -- -- -- Physical Exam Vitals signs and nursing note reviewed. Constitutional: Appearance: Normal appearance. HENT: Head: Normocephalic and atraumatic. Nose: Nose normal. Eyes: Extraocular Movements: Extraocular movements intact. Pupils: Pupils are equal, round, and reactive to light. Neck: Musculoskeletal: Normal range of motion. Cardiovascular: Rate and Rhythm: Normal rate and regular rhythm. Pulses: Normal pulses. Heart sounds: Normal heart sounds. Pulmonary: Effort: Pulmonary effort is normal. Breath sounds: Normal breath sounds. Abdominal: Palpations: Abdomen is soft. Tenderness: There is no abdominal tenderness. Musculoskeletal: Normal range of motion. Skin: General: Skin is warm. Capillary Refill: Capillary refill takes less than 2 seconds. Neurological: General: No focal deficit present. Mental Status: She is alert and oriented to person, place, and time. Procedures Labs Reviewed - No data to display No orders to display BP (!) 129/92 Pulse 91 Temp 36.8 ??C (98.3 ??F) (Temporal) Resp 16 Ht 152.4 cm (5') Wt 87.1 kg (192 lb) LMP 08/20/2020 (Within Days) SpO2 100% BMI 37.50 kg/m?? [facility] ED Course as of Sep 04 849 Time: 09/04 840 Comment: Patient declines pain shot. By: Radha Jefferson No diagnosis found. This note is prepared by Radha Jefferson, acting as a scribe for Cory Wilson MD. I electronicallysigned this note at 8:50 AM on 09/04/2020. I, Cory Wilson MD, have personally performed the services described in the documentation, reviewed the documentation, as recorded by the scribe in my presence, and it accurately and completely records my words and actions. Cory Wilson MD 09/04/2059 ERN DRAFTER * Yany Flores RN - 09/04/2020 8:13 AM CST 15 yr old female presents to the ED with C/O headache, constant x the past several weeks. Pt awake and alert upon arrival, mother at bedside. ERN DRAFTER documented in this encounter Plan of Treatment Not on file documented as of this encounter Visit Diagnoses Diagnosis Chronic intractable headache, unspecified headache type- Primary documented in this encounter Discontinued Medications Medication Sig Discontinue Reason Start Date End Da te qqctqsghzcasc-yixbczt-tr ffeine (EXCEDRIN MIGRAINE) 250-250-65 mg per tablet Take 2 tablets by mouth. Reorder 09/04/2020 documented as of this encounter Care Teams Cattle Tester Relationship Specialty Start Date End Date Jabari Bynum MD PCP - General 07/01/20 documented as of this encounter
--- OUTSIDE RECORDS SUMMARY | 2024-08-31 21:59 | XMS_ITS | Encounter Summary ---
Author Organization [facility] Healthcare Address [address] [place] [address] Care Team Providers Care Marinator Name Role Phone Nelly Marcus Primary Care Provider Unavailabl e Reason for Visit * Reason Comments Ankle Pain Encounter Details Date Type Department Care Team (Late st Contact Info) Description 11/30/2017 11:31 PM CDT - 12/01/2017 12:18 AM CDT Emergency [facility] Emergency Department [address] [place] [address] Laron Nino MD [address] [facility] [address] [place] [address] Discharge Disposition: Left without being seen Social History Tobacco Use Types Packs/Day Years Used Date Smoking Tobacco: Never Smokeless Tobacco: Never Comments No Sex and Gender Information Value Date Recorded Sex Assigned at Not on file 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 Gender Identity Not on file Sexual Orientation Not on file documented as of this encounter Last Filed Vital Signs Vital Sign Reading Time Taken Comments Blood Pressure 134/86 11/30/2017 9:57 PM CDT Pulse 90 11/30/2017 9:57 PM CDT Temperature 36.9 ??C (98.5 ??F) 11/30/2017 9:57 PM CD T Respiratory Rate 18 11/30/2017 9:57 PM CDT Oxygen Saturation 99% 11/30/2017 9:57 PM CDT Inhaled Oxygen Concentration - - Weight 67.8 kg (149 lb 7.6 oz) 11/30/2017 9:57 P M CDT Height - - Body Mass Index - - documented in this encounter Medications at Time of Discharge acetaminophen-asp irin-caffeine (EXCEDRIN MIGRAINE) 250-250-65 mg per tablet Take 2 tablets by mouth. 09/04/2020 ibuprofen (ADVIL,MOTRIN) 600 mg tablet 10/31/2017 06/16/2021 omeprazole (PriLOSEC) 20 mg capsule 11/06/2017 02/03/2018 documented as of this encounter Discharge Disposition Disposition Code Departure Means Destination Left without being seen documented in this encounter ED Notes * Luciana Johnston RN - 11/30/2017 10:20 PM CDT 12 year old female presents to the ED with her father with complaints of twisting her ankle, and now having pain. documented in this encounter Plan of Treatment Not on file documented as of this encounter Visit Diagnoses Not on filedocumented in this encounter Discontinued Medications Medication Sig Discontinue Reason Start Date End Da te ondansetron (ZOFRAN) 4 mg tablet Take 1 tablet (4 mg total) by mouth every 8 (eight) hours as needed for nausea or vomiting. 10/25/2017 11/30/2017 documented as of this encounter Historical Medications * This list may reflect changes made after this encounter. omeprazole (PriLOSEC) 20 mg capsule 11/06/2017 02/03/2018 ibuprofen (ADVIL,MOTRIN) 600 mg tablet 10/31/2017 06/16/2021 acetaminophen-asp irin-caffeine (EXCEDRIN MIGRAINE) 250-250-65 mg per tablet Take 2 tablets by mouth. 09/04/2020 added in this encounter Care Teams Marinator Relationship Specialty Start Date End Date Nelly Marcus PCP - General 11/17/17 06/30/20 documented as of this encounter
--- OUTSIDE RECORDS SUMMARY | 2024-08-31 21:59 | XMS_ITS | Encounter Summary ---
Author Organization [facility] Healthcare Address [address] [place] [address] Care Team Providers Care Metal Machinist Name Role Phone Irvin Osei MD Primary Care Provider Encounter Details Date Type Department Care Team (Late st Contact Info) Description 12/10/2014 9:11 PM CDT - 12/11/2014 1:46 AM CDT Hospital Encounter [facility] Madelyn Lakhani Sprain of ankle; Pain in soft tissues of limb; Overexertion from sudden strenuous movement; Unspecified place of occurrence; Other external cause of injury or poisoning Social History Tobacco Use Types Packs/Day Years Used Date Smoking Tobacco: Never Assessed Comments Unknown Sex and Gender Information Value Date Recorded Sex Assigned at Not on file 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 Gender Identity Not on file Sexual Orientation Not on file documented as of this encounter Medications at Time of Discharge butalbital-acetam inophen-caffeine (FIORICET) 50-325-40 mg per tablet take 1 Tablet by oral route 3 times every day prn 20 0 12/03/2013 08/08/2017 documented as of this encounter Plan of Treatment Not on file documented as of this encounter Visit Diagnoses Diagnosis Sprain of ankle Unspecified site of ankle sprain and strain Pain in soft tissues of limb Overexertion from sudden strenuous movement Unspecified place of occurrence Other external cause of injury or poisoning documented in this encounter Care Teams Metal Machinist Relationship Specialty Start Date End Date Irvin Osei MD [address] [place] [address] PCP - General 11/28/13 10/14/16 documented as of this encounter
--- OUTSIDE RECORDS SUMMARY | 2024-08-31 21:59 | XMS_ITS | Encounter Summary ---
Author Organization [facility] Healthcare Address [address] [place] [address] Care Team Providers Care Chief Wellness Officer Name Role Phone Irvin Osei MD Primary Care Provider [phone] Encounter Details Date Type Department Care Team (Late st Contact Info) Description 01/25/2015 4:58 AM CDT - 01/25/2015 5:45 AM CDT Hospital Encounter [facility] Laron Calderon MD [address] [place] [address] # [place] [address] Acute pharyngitis; Conjunctivitis Social History Tobacco Use Types Packs/Day Years Used Date Smoking Tobacco: Never Assessed Comments Unknown Sex and Gender Information Value Date Recorded Sex Assigned at Not on file 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 [facility] Patient Name: ROSALBA LI ? [facility] Healthcare Age: 9 YRS ?: 2005 ?Sex:F ?[address] )[phone] ?? Adm Dt: 01/25/2015 ?[place], [place] ??[address] Created: 01/28/2015 ??0042 ?? Pt. Type: E ? Discharge Dt: 01/25/2015 ? Pathologists: Rosalie Alvarez MD Admit DrMeño Attend Dr: LARON GEE MD ?MICRO - RESPIRATORY THROAT BETA ONLY ?Collected: 01/25/15 0505 ? Received: 01/25/15527 Source: THROAT ?Started: 01/25/15729 ?THROAT ? PRELIMINARY REPORT ?01/26/15 075 ? NEGATIVE NO BETA-HEMOLYTIC STREPTOCOCCI CULTURED ? FINAL REPORT ?01/27/15 0724 ? NEGATIVE NO BETA-HEMOLYTIC STREPTOCOCCI CULTURED ?? END OF CHART ? Page: ?? 1 us Historical Provider LAB MICROBIOLOGY - GENERA L ORDERABLES Final Result Performing Organization Address [facility] Co de Phone Number HISTORICAL RESULTS * Throat swab Streptococcus Rapid Antigen Group A (01/25/2015 5:05 AM CDT) Strep A ag oropharyngeal Negative NEGATIVE HISTORICAL RESULTS Throat 01/25/2015 5:05 AM CDT us Laron Gee MD LAB BLOOD ORDERABLES Final Re sult Performing Organization Address [facility] Co de Phone Number HISTORICAL RESULTS * Microbiology Summary (01/25/2015 12:00 AM CDT) 01/25/2015 Narrative HISTORICAL RESULTS - 01/28/2015 12:52 AM CDT ? [facility] ?CLINICAL LABORATORIES ? MICROBIOLOGY REPORT PATIENT NAME: ??ROSALBA LI ? MED RECORD#: ??[id number] BIRTHDATE: ??2005 ?? AGE: ??9 YRS SEX: F ?PATIENT#: ? [id number] ADMITTING DR: ??LARON GEE MD ? ATTENDING DR: ??LARON GEE MD ? ACCESSION#: ?? [id number] CREATED: ??01/28/15 ?? 0041 ? ADMIT DATE: ?? 01/25/15 ?MICRO - RESPIRATORY THROAT BETA ONLY ?Collected: 01/25/15 0505 ? Received: 01/25/15 0528 Source: THROAT ?Started: 01/25/15 0730 ?THROAT ?01/26/15 0753 ? NEGATIVE NO BETA-HEMOLYTIC STREPTOCOCCI CULTURED ?01/27/15 0724 ? NEGATIVE NO BETA-HEMOLYTIC STREPTOCOCCI CULTURED ?? END OF CHART us Historical Provider LAB MICROBIOLOGY - GENERA L ORDERABLES Final Result HISTORICAL RESULTS * Discharge Laboratory Cumulative Report (01/25/2015 12:00 AM CDT) 01/25/2015 Narrative HISTORICAL RESULTS - 01/26/2015 12:38 AM CDT Patient No: [id number] ? [facility] Patient Name: ROSALBA LI ? C Healthcare Age: 9 YRS ?: 2005 ?Sex:F ?[address] )[phone] ?? Adm Dt: 01/25/2015 ?[place], [place] ??[address] Created: 01/26/2015 ??0038 ?? Pt. Type: E ? Discharge Dt: 01/25/2015 ? Pathologists: Rosalie Alvarez MD Admit DrMeño Attend Dr: LARON GEE MD ? SEROLOGY ?Collection Date: ?01/25/15 ?Collection Time: ?0505 ? Ref Range: ?? Units: [NEGATIVE] ?GRP A BETA STR ?NEGATIVE ?? END OF CHART ? Page: ?? 1 us Historical Provider MD LAB BLOOD ORDERABLES Hillary l Result HISTORICAL RESULTS documented in this encounter Visit Diagnoses Diagnosis Acute pharyngitis Conjunctivitis Unspecified conjunctivitis documented in this encounter Care Teams Chief Wellness Officer Relationship Specialty Start Date End Date Irvin Osei MD [address] [place] [address] PCP - General 11/28/13 10/14/16 documented as of this encounter
--- OUTSIDE RECORDS SUMMARY | 2024-08-31 21:59 | XMS_ITS | Encounter Summary ---
Author Organization [facility] Healthcare Address [address] [place] [address] Care Team Providers Care Aviation Warfare Systems Operator Name Role Phone Jabari Bynum MD Primary Care Provider Reason for Visit * Reason Comments Headache Encounter Details Date Type Department Care Team (Late st Contact Info) Description 07/01/2020 9:12 PM LEISURE TRAVEL AGENT - 07/01/2020 11:29 PM LEISURE TRAVEL AGENT Emergency [facility] Emergency Department [address] [place] [address] Tala Mcintosh MD [address] [place] [address] Migraine without status migrainosus, not intractable, unspecified migraine type (Primary Dx) Discharge Disposition: Discharge to [...] on file Legal Sex Female 3:14 AM LEISURE TRAVEL AGENT Gender Identity Not on file Sexual Orientation Not on file documented as of this encounter Last Filed Vital Signs Vital Sign Reading Time Taken Comments Blood Pressure 122/63 07/01/2020 11:00 PM LEISURE TRAVEL AGENT Pulse 75 07/01/2020 11:00 PM LEISURE TRAVEL AGENT Temperature 36.4 ??C (97.6 ??F) 07/01/2020 9:14 PM CS T Respiratory Rate 18 07/01/2020 9:14 PM LEISURE TRAVEL AGENT Oxygen Saturation 98% 07/01/2020 11:00 PM LEISURE TRAVEL AGENT Inhaled Oxygen Concentration - - Weight 81.6 kg (180 lb) 07/01/2020 9:19 PM LEISURE TRAVEL AGENT Height 152.4 cm (5') 07/01/2020 9:19 PM LEISURE TRAVEL AGENT Body Mass Index 35.15 07/01/2020 9:19 PM LEISURE TRAVEL AGENT Body Mass Index Percentile 97.93% 07/01/2020 9:1 9 PM LEISURE TRAVEL AGENT Growth Chart: [facility] (Girls, 2- 20 Years) documented in this encounter Discharge Diagnoses Diagnosis Migraine, unspecified, not intractable, without status migrainosus - MIGRAINE, UNSPECIFIED, NOT INTRACTABLE, WITHOUT STATUS MIGRAINOSUS documented in this encounter Discharge Instructions * Discharge Instructions* Tala Mcintosh MD - 07/01/2020 11:15 PM LEISURE TRAVEL AGENT Please follow-up with your primary care doctor or neurologist to discuss recent migraine headache and see if he need to go back on your previous treatment such as topiramate or other treatment. Return to the emergency department if you are unable to stay hydrated for any reason, intractable vomiting, return if symptoms, numbness or weakness, fever, stiff neck, rash, or any new concerning symptoms. URE TRAVEL AGENT URE TRAVEL AGENT * Attachments The following attachments cannot be sent through Care Everywhere. * Migraine Headache in Children (General Information) (Ivorian) documented in this encounter Medications at Time of Discharge citalopram (CeleXA) 10 mg tablet Take 10 mg by mouth daily 0 06/27/2018 acetaminophen-aspiri n-caffeine (EXCEDRIN MIGRAINE) 250-250-65 mg per tablet Take 2 tablets by mouth. 1 ibuprofen (ADVIL,MOTRIN) 600 mg tablet 10/31/2017 [...] Date ondansetron ODT (ZOFRAN-ODT) 4 mg disintegrating tablet Take 1 tablet (4 mg total) by mouth every 8 (eight) hours as needed for nausea or vomiting 20 tablet 07/01/2020 1 documented in this encounter Discharge Disposition Disposition Code Departure Means Destination Discharge to home or self care documented in this encounter ED Notes * Tala Mcintosh MD - 07/01/2020 9:16 PM CST Triage Chief Complaint: Chief Complaint Patient presents with ??? Headache H&P: Rosalba So is a 14 y.o. female with h/o migraine presents for headache. It started about 3days ago, she think she may have woken up with it. It has been gradually getting worse and worse. She has been in recently taking ibuprofen but is not helping. Headache is located on mostly the back of the head and somewhat on the right side and is throbbing and pressure in nature like her head is going to explode. Is associated with nausea and 1 episode of vomiting and hand tingling. When she has tingling in the past, the per her father, this indicates a very severe migraine. It is worse with light. It is better with laying down in the dark. No fever or neck stiffness. No other symptoms such as numbness weakness, sore throat, cough, recent illness, fever, diarrhea, abdominal pain, joint pain or rash. This feels very similar to previous headaches. She has a diagnosis of migraine by [facility] she had been on topiramate up until 2 years ago. Family history positive for migraines in both mother and father. ROS: At least 10 systems reviewed and otherwise negative except as in the HPI. No past medical history on file. No past surgical history on file. HOME MEDICATIONS : mrdbezavhcpit-yqrgary-uivysktv (EXCEDRIN MIGRAINE) 250-250-65 mg per tablet citalopram (CeleXA) 10 mg tablet ibuprofen (ADVIL,MOTRIN) 600 mg tablet omeprazole (PriLOSEC) 20 mg capsule ondansetron ODT (ZOFRAN-ODT) 4 mg disintegrating tablet Age-appropriate grade in school, immunizations up-to-date No Known Allergies Family history: Migraines in both mother and father, no history of brain aneurysm Social history: No tobacco drugs or alcohol Nursing Notes Reviewed. Physical Exam: ED Triage Vitals Temp Pulse Resp BP SpO2 07/01/20211307/01/20211307/01/20211307/01/20211307/01/202114 36.4 ??C (97.6 ??F) 93 18 (!) 138/90 97 % Temp src Heart Rate Source Patient Position BP Location FiO2 (%) -- -- -- -- -- GENERAL APPEARANCE: Awake and alert. No acute distress. HEAD: Atraumatic. EYES: Sclera anicteric. EOMI. Pupils equal round reactive to light. ENT: Tolerates saliva. TMs normal bilaterally. Normal oropharynx with midline uvula without erythema or exudate. NECK: Supple. Trachea midline. No meningismus or lymphadenopathy. HEART: RRR. Radial pulses 2+. LUNGS: Respirations unlabored. CTAB. ABDOMEN: Soft. Non-tender. No guarding or rebound. EXTREMITIES: No acute deformities. No joint swelling appreciated. SKIN: Warm and dry. No visible rash. NEUROLOGICAL: Awake and alert. GCS 15. Cranial nerves 2-12 grossly intact. Strength 5/5 throughout.Light touch sensation intact throughout. Finger to nose WNL. DTR's 2+ in all 4 extremities. Gait WNL. PSYCHIATRIC: Normal mood. I have reviewed and interpreted all of the currently available lab results from this visit (if applicable): Labs Reviewed - No data to display Radiographs (if obtained): Report Reviewed: No orders to display EKG (if obtained): (All EKGs are interpreted by myself in the absence of a dental specialist) Procedures Chart review shows: Appointment with pediatric Neurology 06/26/2016 for chronic migraine at [facility] Plan: - Continue Topamax 25 mg, nightly. [...] Darwin Leal MD CC: Nelly Marcus MD [address] [facility] [address] Date: 07/27/2016 3:57 PM ED course: Vitals: 07/01/20 21307/01/20219907/01/20222907/01/20 230 BP: 114/82 127/79 107/60 122/63 Pulse: 91 84 87 75 Resp: Temp: SpO2: 98% 98% 97% 98% Weight: Height: ED Course as of Jul 02 40 Time: 07/01 2315 Comment: On re-evaluation the patient feels completely improved. Treated with Toradol, L of fluid, Compazine, and also given dose of dexamethasone to try and prevent rebound headache. By: Tala Mcintosh MD MDM: No fevers. No neck stiffness. Not worst headache of life/typical of previous headaches. Not maximalintensity at onset. No numbness or weakness. No rash or joint pain. No syncope. No trauma. No jaw claudication. No vision changes. Normal neuro exam. I estimate there is LOW risk for BACTERIAL MENINGITIS & SUBARACHNOID HEMORRHAGE. Unlikely traumatic intracranial hemorrhage. Unlikely venous sinus thrombosis, giant cell arteritis, or other emergent cause of headache. No indication for head CT and LP at this time. I consider the discharge disposition reasonable. Rosalba So (and her father) and I have discussed the diagnosis and risks, and we agree with discharging home with close follow-up. We also discussed returning to the Emergency Department immediately if new or worsening symptoms occur. We have discussed the symptoms which are most concerning that necessitate immediate return. Clinical Impression: 1. Migraine without status migrainosus, not intractable, unspecified migraine type Disposition: Discharged (Please note that portions of this note may have been completed with a voice recognition program. Dealer Support Technician errors occur. Please contact me for any clarification.) Tala Mcintosh MD 07/02/20 0040 URE TRAVEL AGENT * Janeth Lima RN - 07/01/2020 9:13 PM CST Pt presents to the ed for c/o headache for the past 3 days. Pt has taken ibuprofen intermittently for the past 3 days at 600mg with the last dose being 1900. Pt rates pain 7/10 and has a history of migraines. Pt is nauseous but denies vomiting. URE TRAVEL AGENT documented in this encounter Plan of Treatment Not on file documented as of this encounter Visit Diagnoses Diagnosis Migraine without status migrainosus, not intractable, unspecified migraine type- Primary documented in this encounter Administered Medications Inactive Administered Medications - up to 3 most recent administrations Medication Order MAR Action Action Date Dose Rate Site dexAMETHasone (DECADRON) 4 mg/mL injection 4 mg 4 mg, intravenous, Administer over 2 Minutes, Once, On Mon07/01/20 at 2140, For 1 dose Given 07/01/2020 9:51 PM LEISURE TRAVEL AGENT 4 mg ketorolac (TORADOL) 15 mg/mL injection 15 mg 15 mg, intravenous, Once, On Mon07/01/20 at 2122, For 1 dose, For Adult IV push, administer over 15 seconds, Indications: PainIndications:Pain Given 07/01/2020 9:42 PM LEISURE TRAVEL AGENT 15 mg prochlorperazine (COMPAZINE) injection 10 mg 10 mg, intravenous, Administer over 2 Minutes, Once, On Mon07/01/20 at 2122, For 1 dose, For IV push, administer at a rate of 5 mg/minute Given 07/01/2020 9:42 PM LEISURE TRAVEL AGENT 10 mg sodium chloride 0.9% bolus 1,000 mL 1,000 mL, intravenous, at 1,000 mL/hr, Administer over 1 Hours, Once, On Mon07/01/20 at 2122, For 1 dose New Bag 07/01/2020 9:42 PM LEISURE TRAVEL AGENT 1,000 mL 100 0 mL/hr documented in this encounter Active and Recently Administered Medications Times are shown in LEISURE TRAVEL AGENT. Scheduled Medication Order 06/29/2020 06/30/2020 07/01/2020 dexAMETHasone (DECADRON) 4 mg/mL injection 4 mg (COMPLETED) 4 mg, intravenous, Administer over 2 Minutes, Once, On Mon07/01/20 at 2139, For 1 dose 2150 (Given - Provid er: Maria Ines Rowland, ROSENDO) ketorolac (TORADOL) 15 mg/mL injection 15 mg (COMPLETED) 15 mg, intravenous, Once, On Mon07/01/20 at 2122, For 1 dose, For Adult IV push, administer over 15 seconds, Indications: Pain 2141 (Given - Provid er: Jemma Diaz RN) prochlorperazine (COMPAZINE) injection 10 mg (COMPLETED) 10 mg, intravenous, Administer over 2 Minutes, Once, On Mon07/01/20 at 2122, For 1 dose, For IV push, administer at a rate of 5 mg/minute 2141 (Given - Provid er: Jemma Diaz RN) sodium chloride 0.9% bolus 1,000 mL (COMPLETED) 1,000 mL, intravenous, at 1,000 mL/hr, Administer over 1 Hours, Once, On Mon07/01/20 at 2122, For 1 dose 2141 (New Bag - Prov ider: Jemma Diaz RN)[id number] (Stopped - Provider: Maria Ines Rowland RN) documented in this encounter Care Teams Aviation Warfare Systems Operator Relationship Specialty Start Date End Date Jabari Bynum MD PCP - General 07/01/20 documented as of this encounter
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
--- OUTSIDE RECORDS SUMMARY | 2024-08-31 21:59 | XMS_ITS | Encounter Summary ---
Author Organization [facility] Healthcare Address [address] [place] [address] Care Team Providers Care Petroleum Refining Firer Name Role Phone Unavailable Primary Care Provider Unavailabl e Encounter Details Date Type Department Care Team (Late st Contact Info) Description 07/21/2008 6:39 PM DATABASE MANAGER - 07/21/2008 11:59 PM DATABASE MANAGER Hospital Encounter [facility] Nelly Marcus Social History Tobacco Use Types Packs/Day Years Used Date Smoking Tobacco: Never Assessed Comments Unknown Sex and Gender Information Value Date Recorded Sex Assigned at Not on file Legal Sex Female 3:14 AM DATABASE MANAGER Gender Identity Not on file Sexual Orientation Not on file documented as of this encounter Plan of Treatment Not on file documented as of this encounter Visit Diagnoses Not on filedocumented in this encounter
--- OUTSIDE RECORDS SUMMARY | 2024-08-31 21:59 | XMS_ITS | Encounter Summary ---
Author Organization [facility] Healthcare Address [address] [place] [address] Care Team Providers Care Assortment Planner Name Role Phone Unavailable Primary Care Provider Unavailabl e Encounter Details Date Type Department Care Team (Late st Contact Info) Description 03/23/2011 3:12 PM CDT - 03/23/2011 3:58 PM CDT Hospital Encounter [facility] Ed Adair MD [address] [address] Nelly Marcus Otitis media Social History Tobacco Use Types Packs/Day Years Used Date Smoking Tobacco: Never Assessed Comments Unknown Sex and Gender Information Value Date Recorded Sex Assigned at Not on file Legal Sex Female 3:14 AM MELTER SUPERVISOR ELECTRIC ARC FURNACE Gender Identity Not on file Sexual Orientation Not on file documented as of this encounter Plan of Treatment Not on file documented as of this encounter Visit Diagnoses Diagnosis Otitis media Unspecified otitis media documented in this encounter
--- OUTSIDE RECORDS SUMMARY | 2024-08-31 21:59 | XMS_ITS | Encounter Summary ---
Author Organization [facility] Healthcare Address [address] [place] [address] Care Team Providers Care Mcat Instructor Name Role Phone Unavailable Primary Care Provider Unavailabl e Encounter Details Date Type Department Care Team (Late st Contact Info) Description 10/23/2013 3:39 PM EDITOR PUBLICATIONS - 10/23/2013 6:23 PM EDITOR PUBLICATIONS Hospital Encounter [facility] CLINCON[facility] Silvestre MD [address] [place] [address] Urinary tract infection Social History Tobacco Use Types Packs/Day Years Used Date Smoking Tobacco: Never Assessed Comments Unknown Sex and Gender Information Value Date Recorded Sex Assigned at Not on file Legal Sex Female 3:14 AM EDITOR PUBLICATIONS Gender Identity Not on file Sexual Orientation Not on file documented as of this encounter Plan of Treatment Not on file documented as of this encounter Procedures Procedure Name Priority Date/Time Associated Diagnosis Comments DISCHARGE CUMULATIVE SUMMARY ADDENDUM Routine 10/29/2013 12:35 AM EDITOR PUBLICATIONS BLOOD WBC CELL MORPHOLOGIC EXAM, AUTO Routine 10/23/2013 5:35 PM EDITOR PUBLICATIONS BLOOD CELL COUNT (CBC) Routine 10/23/2013 5:35 PM EDITOR PUBLICATIONS URINALYSIS Routine 10/23/2013 5:25 PM EDITOR PUBLICATIONS URINE MICROSCOPY Routine 10/23/2013 11:2 5 AM EDITOR PUBLICATIONS MICROBIOLOGY SUMMARY Routine 10/23/2013 12:00 AM EDITOR PUBLICATIONS DISCHARGE LABORATORY CUMULATIVE REPORT Routine 10/23/2013 12:00 AM EDITOR PUBLICATIONS documented in this encounter Results * Discharge Cumulative Summary Addendum (10/29/2013 12:35 AM EDITOR PUBLICATIONS) 10/29/2013 12:3 5 AM EDITOR PUBLICATIONS Narrative HISTORICAL RESULTS - 10/29/2013 12:35 AM EDITOR PUBLICATIONS Patient No: [id number] ? [facility] Patient Name: ROSALBA LI ? [facility] Healthcare Age: 8 YRS ?: 2005 ?Sex:F ?[address] )[id number] ?? Adm Dt: 10/23/2013 ?[place], [place] ??[address] Created: 10/29/2013 ??0035 ?? Pt. Type: E ? Discharge Dt: 10/23/2013 ? Pathologists: Rosalie Alvarez MD Admit DrMeño Attend Dr: FARIDEH MATTHEWS MD ? MICRO - BLOOD BLOOD CULTURE ? Collected: 10/23/13 1735 ? Received: 10/23/13 1758 Source: BLOOD ? Started: 10/23/13 1844 ?1OF1 596 LAC ? PRELIMINARY REPORT ?10/24/131999 ? NO GROWTH AT 1 DAY ? FINAL REPORT ?10/28/131999 ? NO GROWTH AT 5 DAYS ?? END OF CHART ? Page: ?? 1 us Historical Provider MD LAB MICROBIOLOGY - GENERA L ORDERABLES Final Result Performing Organization Address [facility] de Phone Number HISTORICAL RESULTS * (ABNORMAL) Blood cell count (CBC) (10/23/2013 5:35 PM EDITOR PUBLICATIONS) Pathologist [facility] WBC 18.6(H) 6.2 - 17.0 K/cumm HISTORICAL RESULTS RBC 4.29 3.80 - 5.50 M/cumm HISTORICAL RESULTS Hgb 12.3 11.0 - 16.0 g/dl HISTORICAL RESULTS Hct 36.4 30.0 - 44.0 % HISTORICAL RESULTS MCV 84.8 77.0 - 97.0 fl HISTORICAL RESULTS MCH 28.7 23.0 - 34.0 pg HISTORICAL RESULTS MCHC 33.8 32.0 - 36.0 g/dl HISTORICAL RESULTS Rdw 14.0 11.5 - 14.5 % HISTORICAL RESULTS Platelets 346 200 - 473 K/cumm HISTORICAL RESULTS MPV 8.9 7.4 - 10.4 fl HISTORICAL RESULTS Blood specimen (specimen) 10/23/2013 5:35 PM EDITOR PUBLICATIONS Marissa COHEN LAB BLOOD ORDERABLES Fin al Result Performing Organization Address [facility] de Phone Number HISTORICAL RESULTS * (ABNORMAL) Blood WBC cell morphologic exam, auto (10/23/2013 5:35 PM EDITOR PUBLICATIONS) Pathologist [facility] Lymphocytes 6.3(L) 25.0 - 33.0 % HISTORICAL RESULTS Monos 6.7 1.0 - 13.0 % HISTORICAL RESULTS Neutrophils 86.4(H) 54.0 - 69.0 % HISTORICAL RESULTS Eosinophils 0.0 0.0 - 10.0 % HISTORICAL RESULTS Basophils 0.2 0.0 - 1.0 % HISTORICAL RESULTS Immature granulocytes 0.4 0.0 - 1.0 % HISTORICAL RESULTS Lymphocytes, abs 1.2 1.2 - 3.4 K/cumm HISTORICAL RESULTS Monocytes, absolute 1.3 1.1 - 1.9 K/cumm HISTORICAL RESULTS Neutrophils, abs 16.1(H) 1.4 - 6.5 K/cumm HISTORICAL RESULTS Eosinophils, abs 0.0 0.0 - 0.7 cells/cum m HISTORICAL RESULTS Basophils, abs 0.0 0.0 - 0.2 K/cumm HISTORICAL RESULTS Immature granulocyte, abs 0.1(H) 0.0 - 0.0 K/cumm HISTORICAL RESULTS Blood specimen (specimen) 10/23/2013 5:35 PM EDITOR PUBLICATIONS Marissa COHEN LAB BLOOD ORDERABLES Fin al Result Performing Organization Address [facility] de Phone Number HISTORICAL RESULTS * (ABNORMAL) Urinalysis (10/23/2013 5:25 PM EDITOR PUBLICATIONS) Color, ur LTYELLO YELLOW HISTORICAL RESULTS Clarity, ur CLEAR CLEAR HISTORIC AL RESULTS Specific gravity, ur <=1.005(A) gu HISTORICAL RESULTS Leukocyte esterase, ur Trace(A) NEGATIVE HISTORICAL RESULTS Nitrites, ur Negative NEGATIVE HISTORI ESTEBAN RESULTS pH, ur 6.5 6.0 HISTORICAL RESULTS Protein, ur Negative NEGATIVE HISTORIC AL RESULTS Glucose, ur Negative NEGATIVE HISTORIC AL RESULTS Ketones, ur Negative NEGATIVE HISTORIC AL RESULTS Urobilinogen, quant, ur 0.2 0.2 - 1.0 mg/dl HISTORICAL RESULTS Bilirubin, ur Negative NEGATIVE HISTOR ICAL RESULTS U Blood Trace(A) NEGATIVE HISTORICAL RESULTS Urine 10/23/2013 5:25 PM EDITOR PUBLICATIONS Marissa COHEN LAB BLOOD ORDERABLES Fin al Result Performing Organization Address [facility] de Phone Number HISTORICAL RESULTS * Urine microscopy (10/23/2013 11:25 AM EDITOR PUBLICATIONS) WBC, ur 0 - 2 0 - 2 /hpf HISTORICA L RESULTS RBC, ur 0 - 2 0 - 5 /hpf HISTORICA L RESULTS Epithelial cells, ur Negative 0 - 2 /hpf HISTORICAL RESULTS Bacteria, ur Negative NEGATIVE /hpf HISTORICAL RESULTS Hyaline casts NOTSEEN 0 - 4 /lpf HISTO RICAL RESULTS Crystals, ur Negative NEGATIVE HISTORI ESTEBAN RESULTS Yeast, ur Negative NEGATIVE HISTORICAL RESULTS Pathological casts, ur Negative NEGATIVE HISTORICAL RESULTS Urine 10/23/2013 11:2 5 AM EDITOR PUBLICATIONS Narrative HISTORICAL RESULTS - 10/23/2013 12:34 PM EDITOR PUBLICATIONS ORDERED BY LAB us Marissa Blount PA LAB BLOOD ORDERABLES Fin al Result HISTORICAL RESULTS * Microbiology Summary (10/23/2013 12:00 AM EDITOR PUBLICATIONS) 10/23/2013 Narrative HISTORICAL RESULTS - 10/29/2013 12:36 AM EDITOR PUBLICATIONS ? [facility] ?CLINICAL LABORATORIES ? MICROBIOLOGY REPORT PATIENT NAME: ??ROSALBA LI ? MED RECORD#: ??[id number] BIRTHDATE: ??2005 ?? AGE: ??8 YRS SEX: F ?PATIENT#: ? [id number] ADMITTING DR: ??FARIDEH MATTHEWS MD ? ATTENDING DR: ??FARIDEH MATTHEWS MD ?ACCESSION#: ?? [id number] CREATED: ??10/29/13 ?? 0034 ? ADMIT DATE: ?? 10/23/13 ? MICRO - BLOOD BLOOD CULTURE ? Collected: 10/23/13 1735 ? Received: 10/23/13 1758 Source: BLOOD ? Started: 10/23/13 1844 ?1OF1 596 LAC ?10/24/13 2000 ? NO GROWTH AT 1 DAY ?10/28/13 2000 ? NO GROWTH AT 5 DAYS ? MICRO - URINE URINE CULTURE ? Collected: 10/23/13 1725 ? Received: 10/23/13 1748 Source: CLEAN CATCH URINE ? Started: 10/23/13 1838 ?10/24/13 06 ? NO GROWTH ?10/25/13 0613 ? NO GROWTH ?? END OF CHART us Historical Provider MD LAB MICROBIOLOGY - GENERA L ORDERABLES Final Result HISTORICAL RESULTS * Discharge Laboratory Cumulative Report (10/23/2013 12:00 AM EDITOR PUBLICATIONS) 10/23/2013 Narrative HISTORICAL RESULTS - 10/24/2013 12:33 AM EDITOR PUBLICATIONS Patient No: [id number] ? [facility] Patient Name: ROSALBA LI ? [facility] Age: 8 YRS ?: 2005 ?Sex:F ?[address] )[id number] ?? Adm Dt: 10/23/2013 ?[place], [place] ??[address] Created: 10/24/2013 ??0033 ?? Pt. Type: E ? Discharge Dt: 10/23/2013 ? Pathologists: Rosalie Alvarez MD Admit Attend Dr: FARIDEH MATTHEWS MD ? BLOOD CELL COUNTS ?Collection Date: ?10/23/13 ?Collection Time: ?1735 ? Ref Range: ?? Units: [6.20-17.00] /CMM ? WBC X 10^3 ? 18.63 H [3.80-5.50] ??/CMM ? RBC X 10^6 ?4.29 [11.0-16.0] ??G/DL ? HGB ? 12.3 [30.0-44.0] ??% ?HCT ? 36.4 [77.0-97.0] ??FL ? MCV ? 84.8 [23.0-34.0] ??PG ? MCH ? 28.7 [32.0-36.0] ??% ?MCHC ?33.8 [11.5-14.5] ??% ?RDW ? 14.0 [200-473] ?? /CMM ? PLT X 10^3 ? 346 ?BLOOD CELL DIFFERENTIAL ?Collection Date: ?10/23/13 ?Collection Time: ?1735 ? Ref Range: ?? Units: [54.0-69.0] ??% ?NEUTROPHILS ? 86.4 H [25.0-33.0] ??% ?LYMPHOCYTES ?6.3 L [1.0-13.0] ??% ?MONOCYTES ?6.7 [0.0-10.0] ??% ?EOSINOPHILS ?0.0 [0.0-1.0] ?? % ?BASOPHILS ?0.2 ? /CMM ? A LYMPHOCYTE ? 1.2 [0.0-1.0] ?? % ?IMM GRAN % ? 0.4 [0.00-0.02] ??/CMM ? A IMM GRAN ?0.07 H [1.1-1.9] ?? /CMM ? A MONOCYTE ? 1.3 [1.4-6.5] ?? /CMM ? A NEUTROPHIL ?16.1 H [0.0-0.7] ?? /CMM ? A EOSINOPHIL ? 0.0 [0.0-0.2] ?? /CMM ? A BASOPHIL ? 0.0 Footnotes and Symbols: L = Low, H = High ?? CONTINUED ?Page: ?? 1 Patient No: [id number] ? [facility] Patient Name: ROSALBA LI ? [facility] Healthcare Age: 8 YRS ?: 2005 ?Sex:F ?[address] )[id number] ?? Adm Dt: 10/23/2013 ?[place] ??[address] Created: 10/24/2013 ??0033 ?? Pt. Type: E ? Discharge Dt: 10/23/2013 ? Pathologists: Rosalie Alvarez MD Admit Attend Dr: FARIDEH MATTHEWS MD ?URINALYSIS ?Collection Date: ?10/23/14 ?Collection Time: ?1725 ? Ref Range: ?? Units: [YELLOW] ? UR COLOR ?LT YELLO ??[CLEAR] ? UR APPEARANCE ?CLEAR ? U SPEC GRAVITY ? <=1.005 * [NEGATIVE] ?U LEUKO ESTRASE ?TRACE * [NEGATIVE] ?U NITRITE ? NEGATIVE ?? [6.0] ?U PH ? 6.5 [NEGATIVE] ?U PROTEIN ? NEGATIVE [NEGATIVE] ?U GLUCOSE ? NEGATIVE [NEGATIVE] ?U KETONES ? NEGATIVE [0.2- 1.0] ?UROBILINOGEN ? 0.2 [NEGATIVE] ?U BILIRUBIN ? NEGATIVE [NEGATIVE] ?U BLOOD ?TRACE * ?? [0-2] ?U WBC ?0-2 ?? [0-5] ?U RBC ?0-2 ?? [0-2] ?U EPI CELLS ? NEGATIVE [NEGATIVE] ?U BACTERIA ?NEGATIVE ?U YEASTS ?NEGATIVE ?? [0-4] ?U HYALINE CASTS ? NOT SEEN [NEGATIVE] ?U CRYSTALS ?NEGATIVE [NEGATIVE] ?U PATH CASTS ?NEGATIVE Footnotes and Symbols: * = Abnormal ?? END OF CHART ? Page: ?? 2 us Historical Provider MD LAB BLOOD ORDERABLES Hillary l Result HISTORICAL RESULTS documented in this encounter Visit Diagnoses Diagnosis Urinary tract infection Urinary tract infection, site not specified documented in this encounter
--- OUTSIDE RECORDS SUMMARY | 2024-08-31 21:59 | XMS_ITS | Encounter Summary ---
Author Organization [facility] Healthcare Address [address] [place] [address] Care Team Providers Care Motorcycle Mechanic Apprentice Name Role Phone Larry Hendrix MD Primary Care Provider Encounter Details Date Type Department Care Team (Late st Contact Info) Description 03/29/2017 5:18 PM CDT - 03/29/2017 6:45 PM CDT Emergency [facility] [address] [place] [address] Az Whelan MD [address] [place] [address] Discharge Disposition: Discharge to home or self care Social History Tobacco Use Types Packs/Day Years Used Date Smoking Tobacco: Never Assessed Comments Unknown Sex and Gender Information Value Date Recorded Sex Assigned at Not on file Legal Sex Female 3:14 AM MED SPEC Gender Identity Not on file Sexual Orientation [...] on filedocumented in this encounter Care Teams Motorcycle Mechanic Apprentice Relationship Specialty [place] [address] [facility] [place] [address] PCP - General 03/29/17 04/16/17 documented as of this encounter
--- OUTSIDE RECORDS SUMMARY | 2024-08-31 21:59 | XMS_ITS | Encounter Summary ---
Author Organization [facility] Healthcare Address [address] [place] [address] Care Team Providers Care Credit Control Administrator Name Role Phone Irvin Osei MD Primary Care Provider Encounter Details Date Type Department Care Team (Late st Contact Info) Description 03/08/2015 2:38 PM CDT - 03/08/2015 4:20 PM CDT Hospital Encounter [facility] Ed Adair MD [address] 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 Gender Identity Not on file Sexual [...] Procedure Name Priority Date/Time Associated Diagnosis Comments OROPHARYNGEAL STREPTOCOCCUS A SCREEN Routine 03/08/2015 3:00 PM CDT GROUP A STREP, RAPID SCREEN, CDR Routine 03/08/2015 3:00 PM CDT DISCHARGE LABORATORY CUMULATIVE REPORT 03/08/2015 documented in this encounter Results * Oropharyngeal Streptococcus A screen (03/08/2015 3:00 PM CDT) Strep A ag oropharyngeal Negative Negative HISTORICAL RESULTS Throat 03/08/2015 3:00 PM CDT [facility] Provider MD LAB BLOOD ORDERABLES Hillary l Result Performing Organization Address [facility] de Phone Number HISTORICAL RESULTS * Group A strep, rapid screen (03/08/2015 3:00 PM CDT) Throat (Unknown) 03/08/2015 3:00 PM CDT Narrative HISTORICAL RESULTS - 03/10/2015 6:32 AM CDT Negative for Group A Streptococci [facility] Provider LAB MICROBIOLOGY - GENERA L ORDERABLES Final Result Performing Organization Address [facility] de Phone Number HISTORICAL RESULTS * DISCHARGE LABORATORY CUMULATIVE REPORT (03/08/2015) Narrative 03/08/2015 Ordered by an unspecified provider. [facility] Provider MD LAB BLOOD ORDERABLES Hillary l Result documented in this encounter Visit Diagnoses Diagnosis Otitis media Unspecified otitis media documented in this encounter Care Teams Credit Control Administrator Relationship Specialty Start Date End Date Irvin Osei MD [address] [place] [address] PCP - General 11/28/13 10/14/16 documented as of this encounter
--- OUTSIDE RECORDS SUMMARY | 2024-08-31 21:59 | XMS_ITS | Encounter Summary ---
Author Organization [facility] Healthcare Address [address] [place] [address] Care Team Providers Care Technology Training Associate Name Role Phone Larry Hendrix MD Primary Care Provider Encounter Details Date Type Department Care Team (Late st Contact Info) Description 06/08/2017 4:45 PM CDT - 06/08/2017 7:57 PM CDT Emergency [facility] Emergency Department [address] [place] [address] Ronaldo Almanza MD [address] [place] [address] Discharge Disposition: Discharge to home or self care Social History Tobacco Use Types Packs/Day Years Used Date Smoking Tobacco: Never Assessed Comments Unknown Sex and Gender Information Value Date Recorded Sex Assigned at Not on file 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 EXAM: XR Foot Min 3 Views L ??[id number] AP, lateral, oblique HISTORY: Pain after trauma. ??Puncture on the bottom of the foot. COMPARISON: 12/11/2014 FINDINGS: No fracture, dislocation, or other osseous abnormalities are present. The bone texture and density are normal. The articular surfaces are smooth. No lytic or blastic lesions are demonstrated. ??No radiopaque foreign objects are seen. IMPRESSION: No acute fractures or radiopaque foreign object. Electronically signed by: Bhaskar Back M.D. Interpreting Physician: ??BHASKAR BACK M.D. ??Read on: ??Jun 08 2017 ?? 5:58P Transcribed by: ??PSC ??On: Jun 08 2017 ??5:56P Approved Electronically by: ??BHASKAR BACK M.D. ??on: ??Jun 08 2017 ?? 5:56P Ordering DR: RONALDO ALMANZA Attending DR: RONALDO ALMANZA Attending: ??RONALDO ALMANZA Requesting: ??RONALDO ALMANZA Requesting Fax: ??[phone] Attending Fax: ??[phone] Attending ID: ??[id number] Requesting ID: ??[id number] Report To 1 ID: ??[id number] Report To 1 Name: ??RONALDO ALMANZA Report To 1 FAX: ??[phone] NextGen Order #: ?? Procedure Note Miscellaneous, Not In File - 06/08/2017 XR Foot Min 3 Views L [id number] Acc#: [id number] DATE OF EXAM: Jun 08 2017 EXAM: XR Foot Min 3 Views L [id number] AP, lateral, oblique HISTORY: Pain after trauma. Puncture on the bottom of the foot. COMPARISON: 12/11/2014 FINDINGS: No fracture, dislocation, or other osseous abnormalities are present. The bone texture and density are normal. The articular surfaces are smooth. No lytic or blastic lesions are demonstrated. No radiopaque foreign objects are seen. IMPRESSION: No acute fractures or radiopaque foreign object. Electronically signed by: Bhaskar Back M.D. Interpreting Physician: BHASKAR BACK M.D. Read on: Jun 08 2017 5:58P Transcribed by: [facility] On: Jun 08 2017 5:56P Approved Electronically by: BHASKAR BACK M.D. on: Jun 08 2017 5:56P Ordering DR: RONALDO ALMANZA Attending DR: RONALDO ALMANZA Attending: RONALDO ALMANZA Requesting: RONALDO ALMANZA Requesting Attending Attending ID: [id number] Requesting ID: [id number] Report To 1 ID: [id number] Report To 1 Name: RONALDO ALMANZA Report To 1 FAX: [phone] NextGen Order #: Ronaldo Almanaz MD IMG XR PROCEDURES Edited R esult - Final documented in this encounter Visit Diagnoses Not on filedocumented in this encounter Care Teams Technology Training Associate Relationship Specialty [place] [id number] [facility] [place] [address] PCP - General 06/08/17 10/25/17 documented as of this encounter
--- OUTSIDE RECORDS SUMMARY | 2024-08-31 21:59 | XMS_ITS | Encounter Summary ---
Author Organization [facility] Healthcare Address [address] [place] [address] Care Team Providers Care Hand I Blocker Name Role Phone Unavailable Primary Care Provider Unavailabl e Encounter Details Date Type Department Care Team (Late st Contact Info) Description 08/13/2008 4:48 PM SHANK STITCHER - 08/13/2008 5:35 PM SHANK STITCHER Hospital Encounter [facility] Ed Adair MD [address] [address] Nelly Marcus Streptococcal sore throat; Rash and other nonspecific skin eruption Social History Tobacco Use Types Packs/Day Years Used Date Smoking Tobacco: Never Assessed Comments Unknown Sex and Gender Information Value Date Recorded Sex Assigned at Not on file Legal Sex Female 3:14 AM SHANK STITCHER Gender Identity Not on file Sexual Orientation Not on file documented as of this encounter Plan of Treatment Not on file documented as of this encounter Visit Diagnoses Diagnosis Streptococcal sore throat Rash and other nonspecific skin eruption documented in this encounter
--- OUTSIDE RECORDS SUMMARY | 2024-08-31 21:59 | XMS_ITS | Encounter Summary ---
Author Organization [facility] Healthcare Address [address] [place] [address] Care Team Providers Care Welt Beater Name Role Phone Nelly Marcus Primary Care Provider Unavailabl e Encounter Details Date Type Department Care Team (Late st Contact Info) Description 10/15/2016 9:23 AM METAL STUD FRAMER - 10/15/2016 11:31 AM METAL STUD FRAMER Emergency [facility] Emergency Department [address] [place] [address] Ivan Nj, DO [address] [place] [address] Discharge Disposition: Discharge to home or self care Social History Tobacco Use Types Packs/Day Years Used Date Smoking Tobacco: Never Assessed Comments Unknown Sex and Gender Information Value Date Recorded Sex Assigned at Not on file Legal Sex Female 3:14 AM METAL STUD FRAMER Gender Identity Not on file Sexual Orientation [...] Procedure Name Priority Date/Time Associated Diagnosis Comments AEROBIC CULTURE, CDR Routine 10/15/2016 10:08 AM METAL STUD FRAMER THROAT SWAB STREPTOCOCCUS RAPID ANTIGEN GROUP A Routine 10/15/2016 10:08 AM METAL STUD FRAMER NASOPHARYNGEAL MUCUS INFLUENZA A, B AG Routine 10/15/2016 10:08 AM METAL STUD FRAMER documented in this encounter Results * Throat swab Streptococcus Rapid Antigen Group A (10/15/2016 10:08 AM METAL STUD FRAMER) Strep A ag oropharyngeal Negative Negative CDR HISTORICAL RESULTS Throat 10/15/2016 10:0 8 AM METAL STUD FRAMER Historical Provider MD LAB BLOOD ORDERABLES Hillary l Result Performing Organization Address [facility] Co de Phone Number CDR HISTORICAL RESULTS * Nasopharyngeal mucus Influenza A, B ag (10/15/2016 10:08 AM METAL STUD FRAMER) Influ A ag, nasopharyngeal Negative Negative CDR HISTORICAL RESULTS Comment: Interpretive Data The results of this procedure whether positive or negative are presumptive. Current interpretive data was last revised on 2014. Influ B ag, nasopharyngeal Negative Negative CDR HISTORICAL RESULTS Nasopharynx swab 10/15/2016 10:08 AM METAL STUD FRAMER [facility] Provider MD LAB BLOOD ORDERABLES Hillary l Result Performing Organization Address [facility] Phone Number CDR HISTORICAL RESULTS * Aerobic culture (10/15/2016 10:08 AM METAL STUD FRAMER) Throat (Unknown) 10/15/2016 10:08 AM METAL STUD FRAMER 10/15/2016 12:03 PM METAL STUD FRAMER Impressions CDR HISTORICAL RESULTS - 10/17/2016 4:05 PM METAL STUD FRAMER Note: This specimen has been examined for the presence of Streptococcus pyogenes, Streptococcus dysgalactiae, and Arcanobacterium haemolyticum. Current interpretive data was last revised on 2014. Narrative CDR HISTORICAL RESULTS - 10/17/2016 4:05 PM METAL STUD FRAMER No growth of pathogens. Historical Provider MD LAB MICROBIOLOGY - GENERA L ORDERABLES Final Result Performing Organization Address [facility] Co de Phone Number CDR HISTORICAL RESULTS documented in this encounter Visit Diagnoses Not on filedocumented in this encounter Care Teams Welt Beater Relationship Specialty Start Date End Date Nelly Marcus PCP - General 10/15/16 03/28/17 documented as of this encounter
--- OUTSIDE RECORDS SUMMARY | 2024-08-31 21:59 | XMS_ITS | Encounter Summary ---
Author Organization [facility] Healthcare Address [address] [place] [address] Care Team Providers Care Mineral Surveyor Name Role Phone Unavailable Primary Care Provider Unavailabl e Encounter Details Date Type Department Care Team (Late st Contact Info) Description 04/03/2013 8:32 PM CDT - 04/03/2013 9:41 PM CDT Hospital Encounter [facility] Farideh Pineda MD [address] [place] [address] Contusion of foot; Overexertion from sudden strenuous movement; Unspecified place of occurrence Social History Tobacco Use Types Packs/Day Years Used Date Smoking Tobacco: Never Assessed Comments Unknown Sex and Gender Information Value Date Recorded Sex Assigned at Not on file 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 RESULT: Three views obtained. ??No acute fracture or subluxation identified. ??Soft tissues and joints are unremarkable. IMPRESSION: NEGATIVE STUDY. Interpreting Physician: ??FABIAN MENA M.D. ??Read on: ??Mar ??8 2012 ??5:33A Transcribed by: ??mrr ??On: Mar ??8 2012 ??9:44A Approved Electronically by: ??FABIAN MENA M.D. ??on: ??Mar ??2012 ??9:48A Ordering DR: ALLYSSA WOLF Attending DR: DR GABRIEL GROSSMAN Requesting Fax: ??[phone] Procedure Note Provider, Monica, - 12/25/2016 XR Foot Min 3 Views L [id number] Acc#: [id number] DATE OF EXAM: Apr 03 2013 CLINICAL HISTORY: Left foot injury, left foot pain. RESULT: Three views obtained. No acute fracture or subluxation identified. Softtissues and joints are unremarkable. IMPRESSION: NEGATIVE STUDY. Interpreting Physician: FABIAN MENA M.D. Read on: Apr 04 2013 5:33A Transcribed by: mrr On: Apr 04 2013 9:44A Approved Electronically by: FABIAN MENA M.D. on: Apr 04 2013 9:48A Ordering DR: ALLYSSA WOLF Attending DR: DR GABRIEL GROSSMAN Requesting us Historical Provider IMKennedi XR PROCEDURES Final R esult documented in this encounter Visit Diagnoses Diagnosis Contusion of foot Overexertion from sudden strenuous movement Unspecified place of occurrence documented in this encounter
--- OUTSIDE RECORDS SUMMARY | 2024-08-31 21:59 | XMS_ITS | Encounter Summary ---
Author Organization [facility] Healthcare Address [address] [place] [address] Care Team Providers Care Machine Helper Name Role Phone Unavailable Primary Care Provider Unavailabl e Encounter Details Date Type Department Care Team (Late st Contact Info) Description 04/18/2012 5:51 PM CDT - 04/18/2012 7:52 PM CDT Hospital Encounter [facility] Farideh Pineda MD [address] [place] [address] Toxic effect of venom; Poisoning and toxic reactions caused by other specified animals and plants Social History Tobacco Use Types Packs/Day Years Used Date Smoking Tobacco: Never Assessed Comments Unknown Sex and Gender Information Value Date Recorded Sex Assigned at Not on file Legal Sex Female 3:14 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
--- OUTSIDE RECORDS SUMMARY | 2024-08-31 21:59 | XMS_ITS | Encounter Summary ---
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.] Negative Negative [facility] ([facility]) Urobilinogen, ur 0.2 0.2 - 1.0 [facility] ([facility]) Comment:Normal Ranges: 0.2-1 .0 EU/dL Nitrites, ur Negative Negative [facility] ([place]) Leukocyte esterase, ur Negative Negative [facility] ([facility]) Urine/Blood 12/21/2016 10:4 5 PM CDT 12/21/2016 10:52 PM CDT us Benedicto Iverson Jr., MD LAB MICROBIOLOGY - GENE RAL ORDERABLES Final Result [facility] ([place]) [address] [facility] Department [place] [address] documented in this encounter Visit Diagnoses Not on filedocumented in this encounter Care Teams Activities Volunteer Relationship Specialty Start Date End Date Nelly Marcus PCP - General 10/15/16 03/28/17 documented as of this encounter
--- OUTSIDE RECORDS SUMMARY | 2024-08-31 21:59 | XMS_ITS | Encounter Summary ---
Author Organization [facility] Healthcare Address [address] [place] [address] Care Team Providers Care Tombstone Polisher Name Role Phone Larry Hendrix MD Primary Care Provider Jabari Bynum MD Primary Care Provider Encounter Details Date Type Department Care Team (Late st Contact Info) Description 10/25/2017 9:26 PM ARRANGING FUNERAL DIRECTOR - 10/26/2017 3:16 AM ARRANGING FUNERAL DIRECTOR Hospital Encounter [facility] [place] [address] Benedicto Uribe MD [address] [address] Jessy Puckett MD [address] [address] Discharge Disposition: Discharge to home or self care Social History Tobacco Use Types Packs/Day Years Used Date Smoking Tobacco: Never Smokeless Tobacco: Never Comments No Sex and Gender Information Value Date Recorded Sex Assigned at Not on file Legal Sex Female 3:14 AM ARRANGING FUNERAL DIRECTOR Gender Identity Not on file Sexual Orientation Not on file documented as of this encounter Medications at Time of Discharge ondansetron (ZOFRAN) 4 mg tablet Take 1 tablet (4 mg total) by mouth every 8 (eight) hours as needed for nausea or vomiting. 8 tablet 10/25/2017 11/30/2017 documented as of this encounter Discharge Disposition Disposition Code Departure Means Destination Discharge to home or self care documented in this encounter Plan of Treatment Not on file documented as of this encounter Visit Diagnoses Not on filedocumented in this encounter Care Teams Tombstone Polisher Relationship Specialty [place] [address] [place] [address] PCP - General 06/08/17 10/25/17 [place] [address] [place] [address] PCP - General 10/26/17 10/31/17 documented as of this encounter
--- OUTSIDE RECORDS SUMMARY | 2024-08-31 21:59 | XMS_ITS | Encounter Summary ---
Author Organization [facility] Healthcare Address [address] [place] [address] Care Team Providers Care Electric Range Assembler Name Role Phone Unavailable Primary Care Provider Unavailabl e Encounter Details Date Type Department Care Team (Late st Contact Info) Description 06/10/2009 8:33 AM CDT - 06/10/2009 11:19 AM CDT Hospital Encounter [facility] Ed Adair MD [address] [address] Nelly Marcus Acute pharyngitis; Otitis media Social History Tobacco Use Types Packs/Day Years Used Date Smoking Tobacco: Never Assessed Comments Unknown Sex and Gender Information Value Date Recorded Sex Assigned at Not on file Legal Sex Female 3:14 AM DUPLICATE MAKER Gender Identity Not on file Sexual Orientation Not on file documented as of this encounter Plan of Treatment Not on file documented as of this encounter Visit Diagnoses Diagnosis Acute pharyngitis Otitis media Unspecified otitis media documented in this encounter
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
--- OUTSIDE RECORDS SUMMARY | 2024-08-31 21:59 | XMS_ITS | Encounter Summary ---
Author Organization [facility] Healthcare Address [address] [place] [address] Care Team Providers Care Application Engineer Name Role Phone Nelly Marcus Primary Care Provider Unavailabl e Encounter Details Date Type Department Care Team (Latest Contact Info) Description 06/19/2018 9:05 PM CDT - 06/19/2018 11:59 PM CDT Hospital Encounter [facility] Discharge Disposition: Discharge to home or self care Social History Tobacco Use Types Packs/Day Years Used Date Smoking Tobacco: Never Smokeless Tobacco: Never Comments No Sex and Gender Information Value Date Recorded Sex Assigned at Not on file Legal Sex Female 3:14 AM MEAT BUTCHER Gender Identity Not on file Sexual Orientation Not on file documented as of this encounter Medications at Time of Discharge acetaminophen-asp irin-caffeine (EXCEDRIN MIGRAINE) 250-250-65 mg per tablet Take 2 tablets by mouth. 09/04/2020 ibuprofen (ADVIL,MOTRIN) 600 mg tablet 10/31/2017 06/16/2021 omeprazole (PriLOSEC) 20 mg capsule TAKE ONE CAPSULE BY MOUTH TWICE A DAY 60 capsule 1 02/05/2018 06/16/2021 documented as of this encounter Discharge Disposition Disposition Code Departure Means Destination Discharge to home or self care documented in this encounter Plan of Treatment Not on file documented as of this encounter Visit Diagnoses Not on filedocumented in this encounter Care Teams Application Engineer Relationship Specialty Start Date End Date Nelly Marcus PCP - General 11/17/17 06/30/20 documented as of this encounter
--- OUTSIDE RECORDS SUMMARY | 2024-08-31 21:59 | XMS_ITS | Encounter Summary ---
Author Organization [facility] Healthcare Address [address] [place] [address] Care Team Providers Care Field Enumerator Name Role Phone Unavailable Primary Care Provider Unavailabl e Encounter Details Date Type Department Care Team (Late st Contact Info) Description 12/11/2007 2:45 PM CDT - 12/11/2007 11:59 PM CDT Hospital Encounter [facility] Nelly Marcus Social History Tobacco Use Types Packs/Day Years Used Date Smoking Tobacco: Never Assessed Comments Unknown Sex and Gender Information Value Date Recorded Sex Assigned at Not on file Legal Sex Female 3:14 AM TAP GRINDER Gender Identity Not on file Sexual Orientation Not on file documented as of this encounter Plan of Treatment Not on file documented as of this encounter Visit Diagnoses Not on filedocumented in this encounter
--- OUTSIDE RECORDS SUMMARY | 2024-08-31 21:59 | XMS_ITS | Encounter Summary ---
Author Organization [facility] Healthcare Address [address] [place] [address] Care Team Providers Care Landscape Manager Name Role Phone Nelly Marcus Primary Care Provider Unavailabl e Encounter Details Date Type Department Care Team (Late st Contact Info) Description 12/21/2016 Orders Only [facility] [phone] Benedicto Iverson Jr., MD [address] [place] [address] Social History Tobacco Use Types Packs/Day Years Used Date Smoking Tobacco: Never Assessed Comments Unknown Sex and Gender Information Value Date Recorded Sex Assigned at Not on file Legal Sex Female 3:14 AM FLAT SHEET MAKER Gender Identity Not on file Sexual Orientation Not on file documented as of this encounter Plan of Treatment Not on file documented as of this encounter Procedures Procedure Name Priority Date/Time Associated Diagnosis Comments HCG, URINE, QUALITATIVE STAT 12/21/2016 10:45 PM CDT documented in this encounter Results * HCG, urine, qualitative (12/21/2016 10:45 PM CDT) HCG, ur Negative Negative [facility] ([facility]) Urine/Blood 12/21/2016 10:4 5 PM CDT 12/21/2016 10:59 PM CDT Benedicto Iverson Jr., MD LAB URINE ORDERABLES Fi nal Result [facility] ([facility]) [address] [facility] [place] [address] documented in this encounter Visit Diagnoses Not on filedocumented in this encounter Care Teams Landscape Manager Relationship Specialty Start Date End Date Nelly Marcus PCP - General 10/15/16 03/28/17 documented as of this encounter
--- OUTSIDE RECORDS SUMMARY | 2024-08-31 21:59 | XMS_ITS | Encounter Summary ---
Author Organization [facility] Facility Care Team Providers Care Recreation Attendant Supervisor Name Role Phone Unavailable Primary Care Provider Unavailabl e Encounter Details Date Type Department Care Team (Late st Contact Info) Description 11/25/2013 4:37 PM CDT - 11/25/2013 8:10 PM CDT Hospital Encounter [facility] Benedicto Uribe MD 1 [facility] [address] [place] [address] Migraine; Acute upper respiratory infection Social History Tobacco Use Types Packs/Day Years Used Date Smoking Tobacco: Never Assessed Comments Unknown Sex and Gender Information Value Date Recorded Sex Assigned at Not on file Legal Sex Female 3:14 AM COMMUNITY LIAISON OFFICER Gender Identity Not on file Sexual Orientation Not on file documented as of this encounter Last Filed Vital Signs Vital Sign Reading Time Taken Comments Blood Pressure - - Pulse - - Temperature - - Respiratory Rate - - Oxygen Saturation - - Inhaled Oxygen Concentration - - Weight 34.9 kg (76 lb 15.1 oz) 11/25/2013 6:46 P M CDT Height - - Body Mass Index - - documented in this encounter Plan of Treatment Not on file documented as of this encounter Visit Diagnoses Diagnosis Migraine Migraine, unspecified, without mention of intractable migraine without mention of status migrainosus Acute upper respiratory infection Acute upper respiratory infections of unspecified site documented in this encounter
--- OUTSIDE RECORDS SUMMARY | 2024-08-31 21:59 | XMS_ITS | Encounter Summary ---
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 09/07/2020 12:[address] TEAM MEMBER documented in this encounter Results * MRI Brain Plus Head MRA/MRV W WO Contrast (C) (09/07/2020 4:[address] TEAM MEMBER) Anatomical Region Laterality Modality Head and Neck N/A Magnetic Resonan ce 09/07/2020 4:[address] TEAM MEMBER Impressions 09/07/2020 5:[address] TEAM MEMBER 1. Normal MRI of the brain. 2. Normal MRA. 3. Normal MRV. Dictated by: Deya Garcia M.D. The radiology attending physician has personally reviewed this study, and had reviewed and/or edited this written report and agrees with it. Electronically signed by: Benedicto Qiu M.D. Narrative 09/07/2020 5:[address] TEAM MEMBER EXAMINATION: 1. MR Brain with and without CONTRAST 2. MR Angiography Head with and without CONTRAST 3. MR Venography Head with and without CONTRAST HISTORY: 15-year-old female with migraines presenting to ED with ongoing headache. TECHNIQUE: Multiplanar multi-weighted MRI of the brain and brainstem was performed without and with intravenous contrast using the general brain protocol. Magnetic resonance angiography of the iibkrg-lh-Ohgjsc was performed using separate data set acquisitions including a non-contrast cczz-tp-fkjkfc technique and a post-contrast technique to produce axial thin-slice source images. Magnetic resonance venography of the brain was performed using separate data set acquisitions including a non-contrast psar-pb-ksgshw technique and a post-contrast technique to produce axial thin-slice source images. These images were then used to generate maximum intensity projection (MIP) images. Contrast information: 18 mL Dotarem COMPARISON: None available. FINDINGS: The scalp and calvarium are normal. The superior sagittal sinus demonstrates normal venous flow. The corpus callosum is normal in shape and signal intensity. The posterior fossa is unremarkable. ??The pituitary and sella are normal. The brainstem and craniocervical junction are unremarkable. Diffusion weighted images reveal no hyperintensities to suggest acute cerebral infarction. The susceptibility weighted sequences reveal no evidence of acute or chronic hemorrhage. The ventricles are normal in size and position without evidence of hydrocephalus. There are no areas of abnormal contrast enhancement. The paranasal sinuses are normal. The visualized portions of the mastoids are unremarkable. The orbits appear normal. Normal flow voids are demonstrated in the carotid arteries and basilar artery. Multiple small and subcentimeter cervical lymph nodes bilaterally, likely reactive. Normal flow voids are demonstrated in the carotid arteries and basilar artery. The internal carotid arteries are of normal caliber. The internal carotid arteries are of normal caliber. There are no areas of atherosclerotic narrowing. The mscrhd-ni-Jahfvp is complete. The anterior and middle cerebral arteries are normal. The vertebral arteries are codominant. The basilar artery is normal. The posterior cerebral arteries are normal. There is no aneurysm or vascular malformation identified. Although MRA is a screening examination, catheter angiography remains the definitive study for small aneurysms, vasculitis, and other vascular abnormalities. MRV: On the MR venogram, normal signal is demonstrated within the superior sagittal and transverse sinuses. The jugular veins are normal. No luminal filling defects are seen. Procedure Note Benedicto Qiu III, MD PhD - 09/07/2020 EXAMINATION: 1. MR Brain with and without CONTRAST 2. MR Angiography Head with and without CONTRAST 3. MR Venography Head with and without CONTRAST HISTORY: 15-year-old female with migraines presenting to ED with ongoing headache. TECHNIQUE: Multiplanar multi-weighted MRI of the brain and brainstem was performed without and with intravenous contrast using the general brain protocol. Magnetic resonance angiography of the cyfztr-fi-Zeofpy was performed using separate data set acquisitions including a non-contrast kiyj-fy-enjtbj technique and a post-contrast technique to produce axial thin-slice source images. Magnetic resonance venography of the brain was performed using separate data set acquisitions including a non-contrast iqad-sn-yabyjo technique and a post-contrast technique to produce axial thin-slice source images. These images were then used to generate maximum intensity projection (MIP) images. Contrast information: 18 mL Dotarem COMPARISON: None available. FINDINGS: The scalp and calvarium are normal. The superior sagittal sinus demonstrates normal venous flow. The corpus callosum is normal in shape and signal intensity. The posterior fossa is unremarkable. The pituitary and sella are normal. The brainstem and craniocervical junction are unremarkable. Diffusion weighted images reveal no hyperintensities to suggest acute cerebral infarction. The susceptibility weighted sequences reveal no evidence of acute or chronic hemorrhage. The ventricles are normal in size and position without evidence of hydrocephalus. There are no areas of abnormal contrast enhancement. The paranasal sinuses are normal. The visualized portions of the mastoids are unremarkable. The orbits appear normal. Normal flow voids are demonstrated in the carotid arteries and basilar artery. Multiple small and subcentimeter cervical lymph nodes bilaterally, likely reactive. Normal flow voids are demonstrated in the carotid arteries and basilar artery. The internal carotid arteries are of normal caliber. The internal carotid arteries are of normal caliber. There are no areas of atherosclerotic narrowing. The tdubgp-nm-Pteezy is complete. The anterior and middle cerebral arteries are normal. The vertebral arteries are codominant. The basilar artery is normal. The posterior cerebral arteries are normal. There is no aneurysm or vascular malformation identified. Although MRA is a screening examination, catheter angiography remains the definitive study for small aneurysms, vasculitis, and other vascular abnormalities. MRV: On the MR venogram, normal signal is demonstrated within the superior sagittal and transverse sinuses. The jugular veins are normal. No luminal filling defects are seen. IMPRESSION: 1. Normal MRI of the brain. 2. Normal MRA. 3. Normal MRV. Dictated by: Deya Garcia M.D. The radiology attending physician has personally reviewed this study, and had reviewed and/or edited this written report and agrees with it. Electronically signed by: Benedicto Qiu M.D. Hue Morris MD IMG MRI PROCEDURES Final Result * Urine culture Urine, clean voided (09/07/2020 2:[address] TEAM MEMBER) Report Final Report: Growth indicative of contamination with periurethral gypsy. Please submit a new specimen with special attention given to the collection process and to prompt transport to the laboratory. [facility] Comment:Testing performed by : [facility], [address] [place]., [address] Organism GROWTH INDICATES CONTAM WITH PERIURETHRAL GYPSY. [facility] Urine, clean voided 09/07/2020 2:[address] TEAM MEMBER 09/07/2020 3:[address] TEAM MEMBER Narrative [facility] - 09/09/2020 8:[address] TEAM MEMBER Indications for Culture:->Recent positive UA Testing performed by [facility] ([phone]) Hue Morris MD LAB MICROBIOLOGY - GENER AL [place] [address] * (ABNORMAL) Urinalysis, microscopic only (09/07/2020 1:[address] TEAM MEMBER) WBC, ur >50(A) 0 - 5 /HPF [facility] RBC, ur 11-20(A) 0 - 2 /HPF [facility] Epithelial cells, squamous, ur 11-20(A) 0 - 5 /HPF [facility] Comment:Suggestive of contam ination. Consider recollection by clean catch. Mucous, ur Present(A ) [facility] Urine 09/07/2020 1:[address] TEAM MEMBER 09/07/2020 1:[address] TEAM MEMBER Hue Morris MD LAB URINE ORDERABLES Fin al Result Performing Organization Address [facility] [place] [address] * hCG, urine, qualitative (09/07/2020 1:[address] TEAM MEMBER) Pathologist [facility] HCG, ur Negative Negative [facility] Urine 09/07/2020 1:[address] TEAM MEMBER 09/07/2020 1:[address] TEAM MEMBER Hue Morris MD LAB URINE ORDERABLES Fin al Result Performing Organization Address [facility] [place] [address] * (ABNORMAL) Urinalysis reflex to microscopic (09/07/2020 1:[address] TEAM MEMBER) Color, ur Straw Yellow [facility] Clarity, ur Turbid(A) Clear [facility] Specific gravity, ur 1.012 1.010 - 1.025 [facility] pH, urine 5.5 [facility] Protein, ur ql Negative Negative [facility] Glucose, ur ql Negative Negative [facility] Ketones, ur Negative Negative [facility] Bilirubin, ur Negative Negative [facility] Blood, ur 2+(A) Negative [facility] Urobilinogen, ur <2.0 <2.0 mg/dL [facility] Nitrite, ur Negative Negative [facility] Leukocyte esterase, ur 4+(A) Negative [facility] UA reflex comment Reflex to microscopic UA will be performed. [facility] Urine 09/07/2020 1:[address] TEAM MEMBER 09/07/2020 1:[address] TEAM MEMBER Narrative [facility] - 09/07/2020 1:[address] TEAM MEMBER ?? Urine pH is affected by diet, medications, systemic acid-base disturbances, and renal tubular function. ??pH may affect urinary stone formation. ??For example, urine pH below 6.0 may help reduce the tendency for calcium phosphate stones and pH greater than 6.0 may reduce the tendency for uric acid stone formation. Source: [employer]. Last revised 09-07-2017 us Hue Morris MD LAB URINE ORDERABLES Fin al Result [facility] [place] [address] * Differential, auto (09/07/2020 12:[address] TEAM MEMBER) Neutrophil abs 5.2 1.7 - 6.5 K/cumm [facility] Imm gran abs 0.0 0.0 - 0.1 K/cumm [facility] Lymphocyte abs 1.3 0.8 - 3.3 K/cumm [facility] Monocyte abs 0.6 0.2 - 0.8 K/cumm [facility] Eosinophil abs 0.1 0.0 - 0.5 K/cumm [facility] Basophil abs 0.0 0.0 - 0.1 K/cumm [facility] Neutrophil pct 71.9 % [facility] Comment: Interpretive Data Percent cell count reference ranges are not reported, since discordance with absolute values may lead to misinterpretation of CBC data. Current Interpretive Data was last revised on 2017. Imm gran pct 0.6 % [facility] Comment: Interpretive Data Percent cell count reference ranges are not reported, since discordance with absolute values may lead to misinterpretation of CBC data. Current Interpretive Data was last revised on 2017. Lymphocyte pct 17.6 % [facility] Comment: Interpretive Data Percent cell count reference ranges are not reported, since discordance with absolute values may lead to misinterpretation of CBC data. Current Interpretive Data was last revised on 2017. Monocyte pct 8.3 % [facility] Comment: Interpretive Data Percent cell count reference ranges are not reported, since discordance with absolute values may lead to misinterpretation of CBC data. Current Interpretive Data was last revised on 2017. Eosinophil pct 1.2 % [facility] Comment: Interpretive Data Percent cell count reference ranges are not reported, since discordance with absolute values may lead to misinterpretation of CBC data. Current Interpretive Data was last revised on 2017. Basophil pct 0.4 % [facility] Comment: Interpretive Data Percent cell count reference ranges are not reported, since discordance with absolute values may lead to misinterpretation of CBC data. Current Interpretive Data was last revised on 2017. Blood specimen (specimen) 09/07/2020 12:[address] TEAM MEMBER 09/07/2020 12:[address] TEAM MEMBER Hue Morris MD LAB BLOOD ORDERABLES Fin al Result Performing Organization Address City/[facility]/ZIP Co de Phone Number [facility] [address] * Creatinine, whole blood (09/07/2020 12:[address] TEAM MEMBER) Creatinine, bld 0.8 0.4 - 1.0 mg/dL [facility] Blood specimen (specimen) 09/07/2020 12:[address] TEAM MEMBER 09/07/2020 12:[address] TEAM MEMBER Hue Morris MD LAB BLOOD ORDERABLES Fin al Result Performing Organization Address City/[facility]/ZIP Co de Phone Number [facility] [place] [address] * Calcium, ionized, whole blood (09/07/2020 12:[address] TEAM MEMBER) Ca, ionized, bld 4.88 3.90 - 5.20 mg/dL [facility] Blood specimen (specimen) 09/07/2020 12:[address] TEAM MEMBER 09/07/2020 12:[address] TEAM MEMBER Hue Morris MD LAB BLOOD ORDERABLES Fin al Result Performing Organization Address City/[facility]/ZIP Co de Phone Number [facility] [place] [address] * Glucose, whole blood (09/07/2020 12:[address] TEAM MEMBER) Pathologist [facility] Glucose, bld 151 70 - 199 mg/dL [facility] Blood specimen (specimen) 09/07/2020 12:[address] TEAM MEMBER 09/07/2020 12:[address] TEAM MEMBER Result [facility] Hue Morris MD LAB BLOOD ORDERABLES Fin al Result Performing Organization Address [facility] de Phone Number [facility] [address] * Electrolytes, whole blood (09/07/2020 12:[address] TEAM MEMBER) Sodium, Whole Blood 138 135 - 145 mmol/L [facility] Potassium, bld 3.6 3.3 - 4.9 mmol/L [facility] Comment: Interpretive Data Unable to assess hemolysis. ??Invitro hemolysis causes falsely elevated potassium. Current Interpretive Data was last revised on 2020. Chloride, bld 109 100 - 114 mmol/L [facility] CO2, Total Calculated, Whole Blood 25 20 - 30 mmol/L [facility] Anion Gap, Whole Blood 6 mmol/L [facility] Blood specimen (specimen) 09/07/2020 12:[address] TEAM MEMBER 09/07/2020 12:[address] TEAM MEMBER Hue Morris MD LAB BLOOD ORDERABLES Fin al Result Performing Organization Address [facility] [place] [address] * (ABNORMAL) CBC with auto differential (09/07/2020 12:[address] TEAM MEMBER) WBC 7.3 3.8 - 9.9 K/cumm [facility] Hgb 13.2 11.9 - 15.5 g/dL [facility] Hct 39.3 35.6 - 45.5 % [facility] Plt 416(H) 150 - 400 K/cumm [facility] MPV 9.5 9.1 - 12.3 fL [facility] RBC 4.45 3.90 - 5.20 M/cumm [facility] MCV 88.3 81.3 - 96.4 fL [facility] MCH 29.7 27.1 - 33.3 pg [facility] MCHC 33.6 32.3 - 35.7 g/dL [facility] RDW CV 13.2 11.1 - 14.9 % [facility] RDW SD 43.1 35.7 - 48.1 fL [facility] NRBC abs 0.00 0.00 - 0.01 K/cumm [facility] Blood specimen (specimen) 09/07/2020 12:[address] TEAM MEMBER 09/07/2020 12:[address] TEAM MEMBER Hue Morris MD LAB BLOOD ORDERABLES Fin al Result Performing Organization Address [facility] [place] [address] documented in this encounter Visit Diagnoses Diagnosis Other headache syndrome- Primary UTI (urinary tract infection) with pyuria documented in this encounter Administered Medications Inactive Administered Medications - up to 3 most recent administrations Medication Order MAR Action Action Date Dose Rate Site acetaminophen (TYLENOL) tablet 500 mg 500 mg, oral, Once, On 09/07/20 at 1302, For 1 dose Given 09/07/2020 1:[address] TEAM MEMBER 500 mg gadoterate meglumine (DOTAREM) 0.5 mmol/mL injection 20 mL 20 mL, intravenous, Once in imaging, contrast, Starting on Mon09/07/20 at 1606, For 1 dose Given 09/07/2020 4:[address] TEAM MEMBER 18 mL ketorolac (TORADOL) 15 mg/mL injection 30 mg 30 mg, intravenous, Administer over 5 Minutes, Once, On Mon09/07/20 at 1302, For 1 dose Given 09/07/2020 1:[address] TEAM MEMBER 30 mg lidocaine 1% buffered 1 % (0.5 mL) injection - ADS Override Pull Starting on Mon09/07/20 at 1209, For 1 dose, Created by cabinet override lidocaine 1% buffered injection 0.1 mL 0.1 mL, subcutaneous, Once, On Mon09/07/20 at 1205, For 1 dose, Maximum daily dose 0.1 mL/kg, Administer immediately prior to procedure. Given 09/07/2020 12:[address] TEAM MEMBER 0.1 mL Other (Comment) nitrofurantoin (MACRODANTIN) capsule 100 mg 100 mg, oral, Once, On Mon09/07/20 at 1711, For 1 dose, Take with food, Indications: CystitisIndications:Cysti tis Given 09/07/2020 5:[address] TEAM MEMBER 100 mg prochlorperazine (COMPAZINE) injection 9.25 mg 9.25 mg (rounded from 9.2 mg = 0.1 mg/kg ? 92 kg), intravenous, Administer over 5 Minutes, Once, On Mon09/07/20 at 1204, For 1 dose, Maximum dose = 10 mg, Indications: Nausea and VomitingIndications:Nause a and Vomiting Given 09/07/2020 12:[address] TEAM MEMBER 9.25 mg sodium chloride 0.9% bolus 1,000 mL 1,000 mL, intravenous, Once, On Mon09/07/20 at 1204, For 1 dose, Maximum dose = 1000 mL New Bag 09/07/2020 12:[address] TEAM MEMBER 1,000 mL documented in this encounter Active and Recently Administered Medications Times are shown in FOOD COURT TEAM MEMBER. Scheduled Medication Order 09/05/2020 09/06/2020 09/07/2020 acetaminophen (TYLENOL) tablet 500 mg (COMPLETED) 500 mg, oral, Once, On Mon09/07/20 at 1302, For 1 dose 1349 (Given - Provid er: Rupal Mullen RN) ketorolac (TORADOL) 15 mg/mL injection 30 mg (COMPLETED) 30 mg, intravenous, Administer over 5 Minutes, Once, On Mon09/07/20 at 1302, For 1 dose 1343 (Given - Provid er: Rupal Mullen RN) lidocaine (LMX) 4 % cream 1 application 1 application (deactivated), topical, Once, On Mon09/07/20 at 1205, For 1 dose, Maximum dose = 4 applications per day, Apply to affected area: IV access site 1340 (Not Given - Pr ovider: Rupal Mullen RN - Reason: Other - Comment: used injectable instead) lidocaine 1% buffered injection 0.1 mL (COMPLETED) 0.1 mL, subcutaneous, Once, On Mon09/07/20 at 1205, For 1 dose, Maximum daily dose 0.1 mL/kg, Administer immediately prior to procedure. 1227 (Given - Provid er: Rupal Mullen RN) nitrofurantoin (MACRODANTIN) capsule 100 mg (COMPLETED) 100 mg, oral, Once, On Mon09/07/20 at 1711, For 1 dose, Take with food, Indications: Cystitis 1726 (Given - Provid er: Steven Parish, EMT-P) prochlorperazine (COMPAZINE) injection 9.25 mg (COMPLETED) 9.25 mg (rounded from 9.2 mg = 0.1 mg/kg ? 92 kg), intravenous, Administer over 5 Minutes, Once, On Mon09/07/20 at 1204, For 1 dose, Maximum dose = 10 mg, Indications: Nausea and Vomiting 1226 (Given - Provid er: Rupal Mullen RN) sodium chloride 0.9% bolus 1,000 mL (COMPLETED) 1,000 mL, intravenous, Once, On Mon09/07/20 at 1204, For 1 dose, Maximum dose = 1000 mL 1240 (New Bag - Prov ider: Rupal Mullen RN)1345 (Stopped - Provider: Rupal Mullen RN) PRN Medication Order 09/05/2020 09/06/2020 09/07/2020 gadoterate meglumine (DOTAREM) 0.5 mmol/mL injection 20 mL (COMPLETED) 20 mL, intravenous, Once in imaging, contrast, Starting on 09/07/20 at 1606, For 1 dose 1606 (Given - Provid er: Shannon Matthews, RT - Comment: 18mL Dotarem given with NS flush. 2mL Dotarem wasted.) documented in this encounter Orders Medications Ordered That Finn ht Not Have Been Administered Count Last Ordered Date First Ordered Date ketorolac (TORADOL) 15 mg/mL injection 30 mg 1 09/07/2020 lidocaine (LMX) 4 % cream 1 application 1 0 09/07/2020 Consult Count Last Ordered Date First Orde red Date IP CONSULT TO NEUROLOGY 1 09/07/2020 IV Count Last Ordered Date First Orde red Date INSERT PERIPHERAL IV 1 09/07/2020 documented in this encounter Care Teams Senior Network Security Engineer Relationship Specialty Start Date End Date Jabari Bynum MD PCP - General 07/01/20 documented as of this encounter
--- OUTSIDE RECORDS SUMMARY | 2024-08-31 21:59 | XMS_ITS | Encounter Summary ---
Author Organization [facility] Address [address] [place] [address] Care Team Providers Care Melter Assistant Name Role Phone Jabari Bynum MD Primary Care Provider Encounter Details Date Type Department Care Team (Late st Contact Info) Description 10/26/2017 2:26 PM TOUR COORDINATOR - 10/26/2017 9:35 PM TOUR COORDINATOR Hospital Encounter [facility] [place] [address] Harry Stevens MD [address] [address] Nikki Jimenez MD [address] [place] [id number] Discharge Disposition: Discharge to home or self care Social History Tobacco Use Types Packs/Day Years Used Date Smoking Tobacco: Never Smokeless Tobacco: Never Comments No Sex and Gender Information Value Date Recorded Sex Assigned at Not on file Legal Sex Female 3:14 AM TOUR COORDINATOR Gender Identity Not on file Sexual [...] Date/Time Associated Diagnosis Comments US PELVIS COMPLETE Routine 10/26/2017 11 :17 PM TOUR COORDINATOR US RETROPERITONEAL LIMITED Routine 10/26/2017 11:17 PM TOUR COORDINATOR US ABDOMEN LIMITED Routine 10/26/2017 11 :17 PM TOUR COORDINATOR N. GONORRHOEAE/C. TRACHOMATIS AMPLIFICATION TEST STAT 10/26/2017 6:37 PM TOUR COORDINATOR URINE CULTURE STAT 10/26/2017 6:37 PM TOUR COORDINATOR URINALYSIS STAT 10/26/2017 3:37 PM TOUR COORDINATOR HCG, URINE, QUALITATIVE STAT 10/27/19 18 3:37 PM TOUR COORDINATOR URINALYSIS, MICROSCOPIC ONLY STAT 10/26/2017 3:37 PM TOUR COORDINATOR DIFFERENTIAL AUTO STAT 10/26/2017 3:3 6 PM TOUR COORDINATOR CREATININE, WHOLE BLOOD STAT 10/27/19 18 3:36 PM TOUR COORDINATOR CALCIUM, IONIZED STAT 10/26/2017 3:36 PM TOUR COORDINATOR HIV 1/2 ANTIBODY PLUS P24 ANTIGEN STAT 10/26/2017 3:36 PM TOUR COORDINATOR GLUCOSE, WHOLE BLOOD STAT 10/26/2017 3:36 PM TOUR COORDINATOR ELECTROLYTES, WHOLE BLOOD STAT 10/26/2017 3:36 PM TOUR COORDINATOR BACTERIAL VAGINOSIS STAIN Routine 10/26/2017 3:36 PM TOUR COORDINATOR TRICHOMONAS STAT 10/26/2017 3:36 PM TOUR COORDINATOR ERYTHROCYTE SEDIMENTATION RATE STAT 10/26/2017 3:36 PM TOUR COORDINATOR CBC WITHOUT DIFFERENTIAL STAT 10/26/2017 3:36 PM TOUR COORDINATOR CRP, HIGH SENSITIVITY STAT 10/26/2017 3:36 PM TOUR COORDINATOR HEPATIC FUNCTION PANEL Routine 8 3:36 PM TOUR COORDINATOR DISCHARGE LABORATORY CUMULATIVE REPORT 10/26/2017 12:00 AM TOUR COORDINATOR documented in this encounter Results * US Abdomen Limited (10/26/2017 11:17 PM TOUR COORDINATOR) Anatomical Region Laterality Modality Abdomen N/A Ultrasound 10/26/2017 11:1 7 PM TOUR COORDINATOR Narrative 10/27/2017 1:57 PM TOUR COORDINATOR KIKI SABA M.D. RAFIQ HARRISON M.D. FINAL REPORT The radiology attending physician has personally reviewed this study, and has reviewed and/or edited this written report and agrees with it. ACC# ??Date Time ??Exam [id number] Oct 26, 2017 17:17:00 34674 [employer] [id number] Oct 26, 2017 17:17:00 90999 PELVIC SONO [id number] Oct 26, 2017 17:17:00 86166S APPENDIX EXAMINATION: ??[id number] APPENDIX, 38225 PELVIC SONO, 18499 [employer] HISTORY: ??Concern for tubo-ovarian abscess. COMPARISON: ??None. FINDINGS: PELVIS: The uterus is prepubertal in configuration and size. ??The endometrial stripe measures 6 mm. ??The left ovary measures 4.6 x 2.3 x 1.8 cm for a volume of 10.1 cc. ??The right ovary measures 5.0 x 2.8 x 3.3 cm for a volume of 23.6 cc. ??There is symmetric flow. ??A cyst is seen within the right ovary measuring 2.8 x 2.4 x 3.3 cm, accounting for the difference in ovarian size. Small follicles are noted bilaterally. APPENDIX: Sonographic evaluation of the right lower quadrant was performed with graded compression technique. Appendix: The appendix is could not be visualized. Abscess: None Fluid: No free fluid. Mesenteric lymph nodes: No enlarged (>7 mm) lymph nodes. Adjacent bowel loops: Peristalsing and otherwise normal appearing. Additional abnormalities: None. IMPRESSION: ??1. ??No sonographic evidence of acute appendicitis 2. ??Right ovarian cyst, with otherwise normal pelvic sonogram Electronically signed by: Kiki Saba M.D. Requested By: ANTONIO KOENIG M.D. Dictated By: ?? RAFIQ HARRISON M.D. ??on Oct ??1 2018 ??5:28P This document has been electronically signed by: KIKI SABA M.D. on Oct ??2 2018 ??7:55A Tamera ROMERO M.D. FINAL REPORT The radiology attending physician has personally reviewed this study, and has reviewed and/or edited this written report and agrees with it. Attending: ??HILDA, ??HARRY Requesting: ??LIBERTY, ??ANTONIO Requesting Fax: ?? Attending Fax: ?? Attending ID: ??[id number] Requesting ID: ??[id number] Report To 1 ID: ??[id number] ? Report To 1 Name: ??, ?? Report To 1 FAX: ?? NextGen Order #: ?? Procedure Note Miscellaneous, Not In File - 10/27/2017 Tamera ROMERO M.D. FINAL REPORT The radiology attending physician has personally reviewed this study, and has reviewed and/or edited this written report and agrees with it. ACC# Date Time Exam [id number] Oct 26, 2017 17:17:00 35073 [employer] [id number] Oct 26, 2017 17:17:00 77741 PELVIC SONO [id number] Oct 26, 2017 17:17:00 12858S APPENDIX EXAMINATION: [id number] APPENDIX, 78023 PELVIC SONO, 86869 [employer] HISTORY: Concern for tubo-ovarian abscess. COMPARISON: None. FINDINGS: PELVIS: The uterus is prepubertal in configuration and size. The endometrial stripe measures 6 mm. The left ovary measures 4.6 x 2.3 x 1.8 cm for a volume of 10.1 cc. The right ovary measures 5.0 x 2.8 x 3.3 cm for a volume of 23.6 cc. There is symmetric flow. A cyst is seen within the right ovary measuring 2.8 x 2.4 x 3.3 cm, accounting for the difference in ovarian size. Small follicles are noted bilaterally. APPENDIX: Sonographic evaluation of the right lower quadrant was performed with graded compression technique. Appendix: The appendix is could not be visualized. Abscess: None Fluid: No free fluid. Mesenteric lymph nodes: No enlarged (>7 mm) lymph nodes. Adjacent bowel loops: Peristalsing and otherwise normal appearing. Additional abnormalities: None. IMPRESSION: 1. No sonographic evidence of acute appendicitis 2. Right ovarian cyst, with otherwise normal pelvic sonogram Electronically signed by: Kiki Saba M.D. Requested By: ANTONIO KOENIG M.D. Dictated By: RAFIQ HARRISON M.D. on Oct 26 2017 5:28P This document has been electronically signed by: KIKI SABA M.D. on Oct 27 2017 7:55A Tamera ROMERO M.D. FINAL REPORT The radiology attending physician has personally reviewed this study, and has reviewed and/or edited this written report and agrees with it. Attending: HARRY STEVENS Requesting: ANTONIO KOENIG Requesting Fax: Attending Fax: Attending ID: [id number] Requesting ID: [id number] Report To 1 ID: [id number] Report To 1 Name: , Report To 1 FAX: NextGen Order #: us Antonio Koenig MD PhD IMG US PROCEDURES Final Result * US Pelvis Complete (10/26/2017 11:17 PM TOUR COORDINATOR) Anatomical Region Laterality Modality Pelvis N/A Ultrasound 10/26/2017 11:1 7 PM TOUR COORDINATOR Narrative 10/27/2017 1:57 PM TOUR COORDINATOR Tamera ROMERO M.D. FINAL REPORT The radiology attending physician has personally reviewed this study, and has reviewed and/or edited this written report and agrees with it. ACC# ??Date Time ??Exam [id number] Oct 26, 2017 17:17:00 64405 [employer] [id number] Oct 26, 2017 17:17:00 96887 PELVIC SONO [id number] Oct 26, 2017 17:17:00 [id number] APPENDIX EXAMINATION: ??[id number] APPENDIX, 90387 PELVIC SONO, 03659 [employer] HISTORY: ??Concern for tubo-ovarian abscess. COMPARISON: ??None. FINDINGS: PELVIS: The uterus is prepubertal in configuration and size. ??The endometrial stripe measures 6 mm. ??The left ovary measures 4.6 x 2.3 x 1.8 cm for a volume of 10.1 cc. ??The right ovary measures 5.0 x 2.8 x 3.3 cm for a volume of 23.6 cc. ??There is symmetric flow. ??A cyst is seen within the right ovary measuring 2.8 x 2.4 x 3.3 cm, accounting for the difference in ovarian size. Small follicles are noted bilaterally. APPENDIX: Sonographic evaluation of the right lower quadrant was performed with graded compression technique. Appendix: The appendix is could not be visualized. Abscess: None Fluid: No free fluid. Mesenteric lymph nodes: No enlarged (>7 mm) lymph nodes. Adjacent bowel loops: Peristalsing and otherwise normal appearing. Additional abnormalities: None. IMPRESSION: ??1. ??No sonographic evidence of acute appendicitis 2. ??Right ovarian cyst, with otherwise normal pelvic sonogram Electronically signed by: Kiki Saba M.D. Requested By: ANTONIO KOENIG M.D. Dictated By: ?? RAFIQ HARRISON M.D. ??on Oct ??1 2017 ??5:28P This document has been electronically signed by: KIKI SABA M.D. on Oct ??2 2018 ??7:55A Tamera ROMERO M.D. FINAL REPORT The radiology attending physician has personally reviewed this study, and has reviewed and/or edited this written report and agrees with it. Attending: ??HILDA, ??HARRY Requesting: ??LIBERTY, ??ANTONIO Requesting Fax: ?? Attending Fax: ?? Attending ID: ??[id number] Requesting ID: ??[id number] Report To 1 ID: ??[id number] ? Report To 1 Name: ??, ?? Report To 1 FAX: ?? NextGen Order #: ?? Procedure Note Miscellaneous, Not In File - 10/27/2017 Tamera ROMERO M.D. FINAL REPORT The radiology attending physician has personally reviewed this study, and has reviewed and/or edited this written report and agrees with it. ACC# Date Time Exam [id number] Oct 26, 2017 17:17:00 17893 [employer] [id number] Oct 26, 2017 17:17:00 80184 PELVIC SONO [id number] Oct 26, 2017 17:17:00 78409M APPENDIX EXAMINATION: [id number] APPENDIX, 97871 PELVIC SONO, 72886 [employer] L[employer] HISTORY: Concern for tubo-ovarian abscess. COMPARISON: None. FINDINGS: PELVIS: The uterus is prepubertal in configuration and size. The endometrial stripe measures 6 mm. The left ovary measures 4.6 x 2.3 x 1.8 cm for a volume of 10.1 cc. The right ovary measures 5.0 x 2.8 x 3.3 cm for a volume of 23.6 cc. There is symmetric flow. A cyst is seen within the right ovary measuring 2.8 x 2.4 x 3.3 cm, accounting for the difference in ovarian size. Small follicles are noted bilaterally. APPENDIX: Sonographic evaluation of the right lower quadrant was performed with graded compression technique. Appendix: The appendix is could not be visualized. Abscess: None Fluid: No free fluid. Mesenteric lymph nodes: No enlarged (>7 mm) lymph nodes. Adjacent bowel loops: Peristalsing and otherwise normal appearing. Additional abnormalities: None. IMPRESSION: 1. No sonographic evidence of acute appendicitis 2. Right ovarian cyst, with otherwise normal pelvic sonogram Electronically signed by: Kiki Saba M.D. Requested By: ANTONIO KOENIG M.D. Dictated By: RAFIQ HARRISON M.D. on Oct 26 2017 5:28P This document has been electronically signed by: KIKI SABA M.D. on Oct 27 2017 7:55A Tamera ROMERO M.D. FINAL REPORT The radiology attending physician has personally reviewed this study, and has reviewed and/or edited this written report and agrees with it. Attending: HARRY STEVENS Requesting: ANTONIO KOENIG Requesting Fax: Attending Fax: Attending ID: [id number] Requesting ID: [id number] Report To 1 ID: [id number] Report To 1 Name: , Report To 1 FAX: NextGen Order #: us Antonio Koenig MD PhD IMG US PROCEDURES Final Result * US Retroperitoneal Limited (10/26/2017 11:17 PM TOUR COORDINATOR) Anatomical Region Laterality Modality Abdomen N/A Ultrasound 10/26/2017 11:1 7 PM TOUR COORDINATOR Narrative 10/27/2017 1:57 PM TOUR COORDINATOR KIKI SABA M.D. RAFIQ HARRISON M.D. FINAL REPORT The radiology attending physician has personally reviewed this study, and has reviewed and/or edited this written report and agrees with it. ACC# ??Date Time ??Exam [id number] Oct 26, 2017 17:17:00 21617 [employer] [id number] Oct 26, 2017 17:17:00 57784 PELVIC SONO [id number] Oct 26, 2017 17:17:00 24601M APPENDIX EXAMINATION: ??[id number] APPENDIX, 46397 PELVIC SONO, 96159 [employer] L[employer] HISTORY: ??Concern for tubo-ovarian abscess. COMPARISON: ??None. FINDINGS: PELVIS: The uterus is prepubertal in configuration and size. ??The endometrial stripe measures 6 mm. ??The left ovary measures 4.6 x 2.3 x 1.8 cm for a volume of 10.1 cc. ??The right ovary measures 5.0 x 2.8 x 3.3 cm for a volume of 23.6 cc. ??There is symmetric flow. ??A cyst is seen within the right ovary measuring 2.8 x 2.4 x 3.3 cm, accounting for the difference in ovarian size. Small follicles are noted bilaterally. APPENDIX: Sonographic evaluation of the right lower quadrant was performed with graded compression technique. Appendix: The appendix is could not be visualized. Abscess: None Fluid: No free fluid. Mesenteric lymph nodes: No enlarged (>7 mm) lymph nodes. Adjacent bowel loops: Peristalsing and otherwise normal appearing. Additional abnormalities: None. IMPRESSION: ??1. ??No sonographic evidence of acute appendicitis 2. ??Right ovarian cyst, with otherwise normal pelvic sonogram Electronically signed by: Kiki Saba M.D. Requested By: ANTONIO KOENIG M.D. Dictated By: ?? RAFIQ HARRISON M.D. ??on Oct ??1 2018 ??5:28P This document has been electronically signed by: KIKI SABA M.D. on Oct ??2 2018 ??7:55A Tamera ROMERO M.D. FINAL REPORT The radiology attending physician has personally reviewed this study, and has reviewed and/or edited this written report and agrees with it. Attending: ??HILDA, ??HARRY Requesting: ??LIBERTY, ??ANTONIO Requesting Fax: ?? Attending Fax: ?? Attending ID: ??[id number] Requesting ID: ??[id number] Report To 1 ID: ??[id number] ? Report To 1 Name: ??, ?? Report To 1 FAX: ?? NextGen Order #: ?? Procedure Note Miscellaneous, Not In File - 10/27/2017 Tamera ROMERO M.D. FINAL REPORT The radiology attending physician has personally reviewed this study, and has reviewed and/or edited this written report and agrees with it. ACC# Date Time Exam [id number] Oct 26, 2017 17:17:00 29304 [employer] [id number] Oct 26, 2017 17:17:00 50687 PELVIC SONO [id number] Oct 26, 2017 17:17:00 [id number] APPENDIX EXAMINATION: [id number] APPENDIX, 92018 PELVIC SONO, 65377 [employer]ONE[employer] LTD HISTORY: Concern for tubo-ovarian abscess. COMPARISON: None. FINDINGS: PELVIS: The uterus is prepubertal in configuration and size. The endometrial stripe measures 6 mm. The left ovary measures 4.6 x 2.3 x 1.8 cm for a volume of 10.1 cc. The right ovary measures 5.0 x 2.8 x 3.3 cm for a volume of 23.6 cc. There is symmetric flow. A cyst is seen within the right ovary measuring 2.8 x 2.4 x 3.3 cm, accounting for the difference in ovarian size. Small follicles are noted bilaterally. APPENDIX: Sonographic evaluation of the right lower quadrant was performed with graded compression technique. Appendix: The appendix is could not be visualized. Abscess: None Fluid: No free fluid. Mesenteric lymph nodes: No enlarged (>7 mm) lymph nodes. Adjacent bowel loops: Peristalsing and otherwise normal appearing. Additional abnormalities: None. IMPRESSION: 1. No sonographic evidence of acute appendicitis 2. Right ovarian cyst, with otherwise normal pelvic sonogram Electronically signed by: Kiki Saba M.D. Requested By: ANTONIO KOENIG M.D. Dictated By: RAFIQ HARRISON M.D. on Oct 26 2017 5:28P This document has been electronically signed by: KIKI SABA M.D. on Oct 27 2017 7:55A Tamera ROMERO M.D. FINAL REPORT The radiology attending physician has personally reviewed this study, and has reviewed and/or edited this written report and agrees with it. Attending: HARRY STEVENS Requesting: ANTONIO KOENIG Requesting Fax: Attending Fax: Attending ID: [id number] Requesting ID: [id number] Report To 1 ID: [id number] Report To 1 Name: , Report To 1 FAX: NextGen Order #: us Antonio Koenig MD PhD IMG US PROCEDURES Final Result * N. gonorrhoeae/C. trachomatis amplification test (10/26/2017 6:37 PM TOUR COORDINATOR) Report Final Report: Negative for: ??Chlamydia trachomatis rRNA Negative for: ??Neisseria gonorrhoeae rRNA [facility] Urine 10/26/2017 6:37 PM TOUR COORDINATOR 10/26/2017 7:51 PM TOUR COORDINATOR Narrative [facility] - 10/26/2017 7:52 PM TOUR COORDINATOR Testing performed by the [employer] APTIMA Combo 2 Assay. This nucleic acid amplification test (NAAT) detects ribosomal RNA (rRNA) from Chlamydia trachomatis and Neisseria gonorrhoeae using target capture,and [employer] Bulk Material Operator-Mediated Amplification (TMA). This test is approved by the [place] Food and Drug Administration for endocervical, vaginal, and male urethral swab specimens, in addition to male and female urine specimens. The performance characteristics for these specimen types have been verified by the [facility].The performance characteristics of this assay for pharyngeal and rectal specimens collected from cervical swab collection devices have been validated and verified by the [facility]. Verification studies support a lack of cross reactivity with other Neisseria species considered normal oropharyngeal bacterial gypsy. Rectal swab specimens containing excess stool may be inhibitory and result in false negatives for Chlamydia trachomatis or Neisseria gonorrhoeae. The performance characteristics of this test have not been evaluated in women or individuals less than 16 years of age. us Nikki Garcia MD LAB MICROBIOLOGY - GENERAL ORDERABLES Final Result [facility] Department [place] [address] * (ABNORMAL) Urine culture (10/26/2017 6:37 PM TOUR COORDINATOR) Report Final Report: Growth indicative of contamination with periurethral gypsy. Please submit a new specimen with special attention given to the collection process and to prompt transport to the laboratory. Includes the following: Less than 10,000 colonies/ml of Streptococcus agalactiae (Group B Streptococci) * ??* ??* ??* ??* ??* ??* ??* ??* ??* ??* ??* ??* ??* ??* ??* ??* ??* ??* ??* Resistance to penicillin in Group B Streptococcus has not been reported. ??Group B Streptococci are universally susceptible to beta-lactam antibiotics and vancomycin. Routine susceptibility testing is not performed. In penicillin allergic patients, please contact the laboratory at [phone] to request susceptibility testing * ??* ??* ??* ??* ??* ??* ??* ??* ??* ??* ??* ??* ??* ??* ??* ??* ??* ??* ??* This laboratory routinely screens urine cultures for any amount of Group B Streptococcus in reproductive age women. ??Recovery of this isolate may be significant in women, however, the recovery of this organism in small quantities in non- women represents contamination with periurethral gypsy.(.) [facility] Organism STREPTOCOCCUS AGALACTIAE (GROUP B STREPTOCOCCI) [facility] Organism GROWTH INDICATES CONTAM WITH PERIURETHRAL GYPSY. [facility] Urine 10/26/2017 6:37 PM TOUR COORDINATOR 10/26/2017 7:54 PM TOUR COORDINATOR Narrative [facility] - 10/27/2017 1:47 PM TOUR COORDINATOR us Antonio Koenig MD PhD LAB MICROBIOLOGY - GENERAL ORDERABLES Final Result Performing Organization Address [facility] Co de Phone Number [facility] [place] [employer] [place] [address] * Urinalysis, microscopic only (10/26/2017 3:37 PM TOUR COORDINATOR) WBC, ur < 5/HPF None Seen [facility] RBC, ur None Seen None Seen [facility] Epithelial cells, renal, ur None Seen None Seen [facility] Epithelial cells, squamous, ur < 5/HPF [facility] Amorphous crystals, ur Trace [facility] Urine 10/26/2017 3:37 PM TOUR COORDINATOR 10/26/2017 5:56 PM TOUR COORDINATOR Narrative [facility] - 10/26/2017 6:16 PM TOUR COORDINATOR us Nikki Garcia MD LAB URINE ORDERA BLES Final Result Performing Organization Address [facility] [place] [address] * HCG, urine, qualitative (10/26/2017 3:37 PM TOUR COORDINATOR) HCG, ur Negative Negative [facility] Urine 10/26/2017 3:37 PM TOUR COORDINATOR 10/26/2017 5:56 PM TOUR COORDINATOR Narrative [facility] - 10/26/2017 6:04 PM TOUR COORDINATOR us Antonio Koenig MD PhD LAB URINE ORDERABL ES Final Result Performing Organization Address [facility]/[place] [address] * (ABNORMAL) Urinalysis (10/26/2017 3:37 PM TOUR COORDINATOR) Color, ur Yellow [facility] Clarity, ur Cloudy(A) Clear [facility] Specific gravity, ur 1.019 1.008 - 1.022 [facility] pH, ur 7.5 [facility] Albumin, ur Negative Negative [facility] Glucose, ur ql Negative Negative [facility] Ketones, ur Negative Negative [facility] Bilirubin, ur Negative Negative [facility] Blood, ur Negative Negative [facility] Urobilinogen, ur 1.0 EhrUnit/dL [facility] Nitrites, ur Negative Negative [facility] Leukocyte esterase, ur Trace Negative [facility] Urine 10/26/2017 3:37 PM TOUR COORDINATOR 10/26/2017 5:56 PM TOUR COORDINATOR Narrative [facility] - 10/26/2017 6:02 PM TOUR COORDINATOR us Nikki Garcia MD LAB URINE ORDERA BLES Final Result Performing Organization Address [facility] [place] [address] * Trichomonas (10/26/2017 3:36 PM TOUR COORDINATOR) Report Final Report: Trichomonas target DNA not detected [facility] Organism TRICHOMONAS TARGET DNA NOT DETECTED [facility] Urine 10/26/2017 3:36 PM TOUR COORDINATOR 10/26/2017 8:09 PM TOUR COORDINATOR Narrative [facility] - 10/26/2017 8:09 PM TOUR COORDINATOR Testing performed on and after 12/26/[address] [facility] using Nucleic Acid Amplification with the [employer] Xpert TV Assay. ??This assay detects DNA from Trichomonas vaginalis using Real-Time PCR. ??This test is cleared by the [place] Food and Drug Administration for endocervical swabs, vaginal swabs, female urine (first-catch), and male urine (first-catch). ??The performance characteristics for these specimen types have been verified by the [facility]. ??Excess blood in specimens may be inhibitory and result in false negative results. ??The performance of this test has not been evaluated in women or individuals less than 18 years of age. Testing performed before 12/26/16 was performed by culture using the InP[employer] TV method at [facility]. us Nikki Garcia MD LAB MICROBIOLOGY - GENERAL ORDERABLES Final Result Performing Organization Address [facility] [place] [address] * (ABNORMAL) Hepatic function panel (10/26/2017 3:36 PM TOUR COORDINATOR) AST Hemolyzed 10 - 50 Units/L [facility] Comment: Hemolyzed; result unreliable. Telephone report made to: Dyllan (Medic/ER) on 10/26/2017 21:27:41 TOUR COORDINATOR by AM . ALT 22 10 - 40 Units/L [facility] Alk phos 115(L) 130 - 550 Units/L [facility] Bilirubin, total 0.4 0.1 - 1.2 mg/dL [facility] Bilirubin, direct 0.1 0.1 - 0.3 mg/dL [facility] Protein, pl 8.0 6.5 - 8.5 g/dL [facility] Albumin 4.8 3.2 - 5.0 g/dL [facility] [facility] Blood specimen (specimen) 10/26/2017 3:36 PM TOUR COORDINATOR 10/26/2017 8:24 PM TOUR COORDINATOR Narrative [facility] - 10/26/2017 9:42 PM TOUR COORDINATOR us Harry Stevens MD LAB BLOOD ORDERABLES Final Result Performing Organization Address [facility] Co de Phone Number [facility] [place] [address] * CRP, high sensitivity (10/26/2017 3:36 PM TOUR COORDINATOR) Pathologist [facility] hsCRP 1.5 <=10.0 mg/L [facility] Comment: Interpretive Data Values >10 mg/L are indicative of inflammation. No ranges have been established for assessment of cardiac disease risk in children. High risk (>3.0 mg/L), average risk (1.0-3.0 mg/L), and low risk (<1.0 mg/L)tertiles have been established for evaluation of cardiac disease risk in adults (Circulation 2003; 107:499-511). Current interpretive data was last revised on 2009. Blood specimen (specimen) 10/26/2017 3:36 PM TOUR COORDINATOR 10/26/2017 8:23 PM TOUR COORDINATOR Narrative [facility] - 10/26/2017 9:24 PM TOUR COORDINATOR us Antonio Koenig MD PhD LAB BLOOD ORDERABL ES Final Result Performing Organization Address City/[facility]/[place] [address] * Bacterial vaginitis screen (10/26/2017 3:36 PM TOUR COORDINATOR) [facility] Direct Specimen Exam Stain: Gram stain indicates normal vaginal gypsy, not suggestive of bacterial vaginosis. [facility] Vaginal 10/26/2017 3:36 PM TOUR COORDINATOR 10/26/2017 7:41 PM TOUR COORDINATOR Narrative [facility] - 10/26/2017 7:41 PM TOUR COORDINATOR us Harry Stevens MD LAB MICROBIOLOGY - GENERAL [place] [address] * Erythrocyte sedimentation rate (10/26/2017 3:36 PM TOUR COORDINATOR) Pathologist [facility] Erythrocyte sedimentation rate 12 0 - 20 mm/H [facility] Blood specimen (specimen) 10/26/2017 3:36 PM TOUR COORDINATOR 10/26/2017 8:23 PM TOUR COORDINATOR Narrative [facility] - 10/26/2017 8:29 PM TOUR COORDINATOR us Antonio Koenig MD PhD LAB BLOOD ORDERABL ES Final Result Performing Organization Address [facility] [place] [address] * HIV-1 and HIV-2 antibody with P24 antigen immunoassay (10/26/2017 3:36 PM TOUR COORDINATOR) HIV 1/2 ab + p24 ag Nonreactive Nonreactive [facility] Comment: This specimen is non-reactive for the presence of HIV-1 p24 antigen and/or HIV-1/HIV-2 antibodies. ??Negative result does not exclude presence of HIV infection because undetectable quantities of antigen or antibody may be present, particularly in acute infection. ??If clinically indicated, recommend repeat testing after 4-6 weeks. Blood specimen (specimen) 10/26/2017 3:36 PM TOUR COORDINATOR 10/26/2017 3:47 PM TOUR COORDINATOR Narrative [facility] - 10/26/2017 7:21 PM TOUR COORDINATOR us Diane Sarmiento MD LAB MICROBIOLOGY - GENERA L ORDERABLES Final Result Performing Organization Address [facility] Co de Phone Number [facility] [place] [address] * Differential, auto (10/26/2017 3:36 PM TOUR COORDINATOR) Neutrophil abs 4.20 1.50 - 9.40 K/cumm [facility] Lymphocyte abs 2.20 1.00 - 7.20 K/cumm [facility] Monocyte abs 0.95 0.10 - 1.70 K/cumm [facility] Eosinophil abs 0.61 0.10 - 1.60 K/cumm [facility] Basophil abs 0.03 0.00 - 0.30 K/cumm [facility] Imm gran abs 0.02 0.00 - 0.20 K/cumm [facility] Neutrophil pct 52.4 % [facility] Lymphocyte pct 27.5 % [facility] Monocyte pct 11.9 % [facility] Eosinophil pct 7.6 % [facility] Basophil pct 0.4 % [facility] Imm gran pct 0.2 % [facility] Blood specimen (specimen) 10/26/2017 3:36 PM TOUR COORDINATOR 10/26/2017 3:47 PM TOUR COORDINATOR Narrative [facility] - 10/26/2017 4:22 PM TOUR COORDINATOR us Diane Sarmiento MD LAB BLOOD ORDERABLES Hillary plata Result [facility] Department [place] [address] * (ABNORMAL) CBC without differential (10/26/2017 3:36 PM TOUR COORDINATOR) WBC 8.0 3.8 - 9.9 K/cumm [facility] RBC 4.52 3.90 - 5.20 M/cumm [facility] Hgb 13.2 11.9 - 15.5 g/dL [facility] Hct 38.9 35.6 - 45.5 % [facility] MCV 86.1 81.3 - 96.4 fL [facility] MCH 29.2 27.1 - 33.3 pg [facility] MCHC 33.9 32.3 - 35.7 g/dL [facility] RDW CV 13.2 11.1 - 14.9 % [facility] RDW SD 41.3 35.7 - 48.1 fL [facility] Plt 416(H) 150 - 400 K/cumm [facility] MPV 10.0 9.1 - 12.3 fL [facility] NRBC abs 0.00 0.00 - 0.01 K/cumm [facility] NRBC 0.0 % [facility] Blood specimen (specimen) 10/26/2017 3:36 PM TOUR COORDINATOR 10/26/2017 3:47 PM TOUR COORDINATOR Narrative [facility] - 10/26/2017 4:22 PM TOUR COORDINATOR Diane Sarmiento MD LAB BLOOD ORDERABLES Hillary l Result Performing Organization Address [facility] [place] [address] * Calcium, ionized (10/26/2017 3:36 PM TOUR COORDINATOR) Ca, ionized, bld 5.01 3.90 - 5.20 mg/dL [facility] Blood specimen (specimen) 10/26/2017 3:36 PM TOUR COORDINATOR 10/26/2017 3:47 PM TOUR COORDINATOR Narrative [facility] - 10/26/2017 3:58 PM TOUR COORDINATOR Result [facility] Diane Sarmiento MD LAB BLOOD ORDERABLES Hillary l Result Performing Organization Address [facility] [place] [address] * Creatinine, whole blood (10/26/2017 3:36 PM TOUR COORDINATOR) Creatinine, bld 0.6 0.4 - 1.0 mg/dL [facility] Blood specimen (specimen) 10/26/2017 3:36 PM TOUR COORDINATOR 10/26/2017 3:47 PM TOUR COORDINATOR Narrative [facility] - 10/26/2017 3:57 PM TOUR COORDINATOR Result [facility] Diane Sarmiento MD LAB BLOOD ORDERABLES Hillray l Result Performing Organization Address [facility] [place] [address] * Glucose, whole blood (10/26/2017 3:36 PM TOUR COORDINATOR) Glucose, bld 95 70 - 199 mg/dL [facility] Blood specimen (specimen) 10/26/2017 3:36 PM TOUR COORDINATOR 10/26/2017 3:47 PM TOUR COORDINATOR Narrative [facility] - 10/26/2017 3:57 PM TOUR COORDINATOR Diane Sarmiento MD LAB BLOOD ORDERABLES Hillary l Result Performing Organization Address [facility] de Phone Number [facility] [place] [address] * Electrolytes, whole blood (10/26/2017 3:36 PM TOUR COORDINATOR) Sodium, Whole Blood 142 135 - 145 mmol/L [facility] Potassium, bld 4.6 3.3 - 4.9 mmol/L [facility] Chloride, bld 103 100 - 114 mmol/L [facility] CO2, Total Calculated, Whole Blood 28 20 - 30 mmol/L [facility] Anion Gap, Whole Blood 12 mmol/L [facility] Blood specimen (specimen) 10/26/2017 3:36 PM TOUR COORDINATOR 10/26/2017 3:47 PM TOUR COORDINATOR Narrative [facility] - 10/26/2017 3:51 PM TOUR COORDINATOR Diane Sarmiento MD LAB BLOOD ORDERABLES Hillary l Result Performing Organization Address [facility] [place] [address] * DISCHARGE LABORATORY CUMULATIVE REPORT (10/26/2017 12:00 AM TOUR COORDINATOR) Narrative 10/26/2017 12:00 AM TOUR COORDINATOR Ordered by an unspecified provider. Historical Provider LAB BLOOD ORDERABLES Hillary l Result documented in this encounter Visit Diagnoses Not on filedocumented in this encounter Care Teams Melter Assistant Relationship Specialty Start Date End Date Jabari Bynum MD PCP - General 10/26/17 10/31/17 documented as of this encounter
--- OUTSIDE RECORDS SUMMARY | 2024-08-31 21:59 | XMS_ITS | Encounter Summary ---
Author Organization [facility] Healthcare Address [address] [place] [address] Care Team Providers Care Sociology Research Assistant Name Role Phone Unavailable Primary Care Provider Unavailabl e Encounter Details Date Type Department Care Team (Late st Contact Info) Description 02/03/2009 3:50 PM CDT - 02/03/2009 4:31 PM CDT Hospital Encounter [facility] Ed Adair MD [address] [address] Nelly Marcus Sprain of ankle Social History Tobacco Use Types Packs/Day Years Used Date Smoking Tobacco: Never Assessed Comments Unknown Sex and Gender Information Value Date Recorded Sex Assigned at Not on file Legal Sex Female 3:14 AM MANUFACTURING TEST TECHNICIAN Gender Identity Not on file Sexual Orientation Not on file documented as of this encounter Plan of Treatment Not on file documented as of this encounter Visit Diagnoses Diagnosis Sprain of ankle Unspecified site of ankle sprain and strain documented in this encounter
--- OUTSIDE RECORDS SUMMARY | 2024-08-31 21:59 | XMS_ITS | Encounter Summary ---
Author Organization [facility] Healthcare Address [address] [place] [address] Care Team Providers Care Graining Machine Operator Name Role Phone Irvin Osei MD Primary Care Provider Encounter Details Date Type Department Care Team (Late st Contact Info) Description 01/15/2016 2:10 PM CDT - 01/15/2016 3:47 PM CDT Hospital Encounter [facility] Cory Coronel MD [address] [facility] [address] [place] [address] Urinary tract infection Social History Tobacco Use Types Packs/Day Years Used Date Smoking Tobacco: Never Assessed Comments Unknown Sex and Gender Information Value Date Recorded Sex Assigned at Not on file Legal Sex Female 3:14 AM ASSISTANT REFINERY OPERATOR Gender Identity Not on file Sexual [...] Name Priority Date/Time Associated Diagnosis Comments URINE (AEROBIC) CULTURE, CDR Routine 01/15/2016 2:30 PM CDT URINE MICROSCOPY Routine 01/15/2016 2:30 PM CDT URINALYSIS Routine 01/15/2016 2:30 PM CDT DISCHARGE LABORATORY CUMULATIVE REPORT 01/15/2016 documented in this encounter Results * (ABNORMAL) Urinalysis (01/15/2016 2:30 PM CDT) Color, ur Yellow Yellow HISTORICAL RESULTS Clarity, ur Cloudy(A) Clear HISTORIC AL RESULTS Specific gravity, ur 1.022 1.003 - 1.030 HISTORICAL RESULTS Comment:Normal Ranges: 1.003 -1.030 pH, ur 7.0 4.5 - 8.0 HISTORICAL RESULTS Comment:Normal ranges: 4.5-8 .0 Protein, ur, quant Negative Negative mg/dl HISTORICAL RESULTS Glucose, ur, quant Negative Negative mg/dl HISTORICAL RESULTS Ketones, ur Negative Negative HISTORIC AL RESULTS Bilirubin, ur Negative Negative HISTOR ICAL RESULTS U Blood Negative Negative HISTORICAL RESULTS Urobilinogen, quant, ur 1.0 0.2 - 1.0 Brown Units/dl HISTORICAL RESULTS Comment:Normal Ranges: 0.2-1 .0 EU/dL Nitrites, ur Negative Negative HISTORI ESTEBAN RESULTS Leukocyte esterase, ur Small(A) Negative HISTORICAL RESULTS Urine 01/15/2016 2:30 PM CDT Historical Provider LAB BLOOD ORDERABLES Hillary l Result Performing Organization Address [facility] de Phone Number HISTORICAL RESULTS * (ABNORMAL) Urine microscopy (01/15/2016 2:30 PM CDT) RBC, ur 2 - 5(A) 0 - 2 /hpf HISTORICA L RESULTS WBC, ur 5 - 10(A) 0 - 2 /hpf HISTORICA L RESULTS Bacteria, ur 1+(A) Negative HISTORI ESTEBAN RESULTS Hyaline casts 10 - 30(A) 0 - 2 /lpf HISTORICAL RESULTS Epithelial cells, ur 5 - 10(A) 0 - 2 /hpf HISTORICAL RESULTS Urine 01/15/2016 2:30 PM CDT Historical Provider LAB BLOOD ORDERABLES Hillary l Result Performing Organization Address [facility]/ZIP Co de Phone Number HISTORICAL RESULTS * Urine (aerobic) culture (01/15/2016 2:30 PM CDT) Urine, clean voided (Unknown) 01/15/2016 2:30 PM CDT Narrative HISTORICAL RESULTS - 01/17/2016 8:57 AM CDT 10,000 to 50,000 colonies/ml of Viridans group Streptococcus Routine susceptibility testing not performed. Historical Provider LAB MICROBIOLOGY - GENERA L ORDERABLES Final Result HISTORICAL RESULTS * DISCHARGE LABORATORY CUMULATIVE REPORT (01/15/2016) Narrative 01/15/2016 Ordered by an unspecified provider. Historical Provider LAB BLOOD ORDERABLES Hillary l Result documented in this encounter Visit Diagnoses Diagnosis Urinary tract infection Urinary tract infection, site not specified documented in this encounter Care Teams Graining Machine Operator Relationship Specialty Start Date End Date Irvin Osei MD [address] [place] [id number] PCP - General 11/28/13 10/14/16 documented as of this encounter
--- OUTSIDE RECORDS SUMMARY | 2024-08-31 21:59 | XMS_ITS | Encounter Summary ---
Author Organization [facility] Healthcare Address [address] [place] [address] Care Team Providers Care Senior Stack Engineer Name Role Phone Nelly Marcus Primary Care Provider Unavailabl e Reason for Visit * Reason Comments Arm Pain Encounter Details Date Type Department Care Team (Late st Contact Info) Description 07/23/2018 9:38 PM STRATEGIC ALLIANCES MANAGER - 07/24/2018 12:08 AM STRATEGIC ALLIANCES MANAGER Emergency [facility] Emergency Department [address] [place] [address] Az Perez MD [address] [place] [address] Right shoulder tendonitis (Primary Dx) Discharge Disposition: Discharge to home or self care Social History Tobacco Use Types Packs/Day Years Used Date Smoking Tobacco: Never Smokeless Tobacco: Never Comments No Sex and Gender Information Value Date Recorded Sex Assigned at Not on file Legal Sex Female 3:14 AM STRATEGIC ALLIANCES MANAGER Gender Identity Not on file Sexual Orientation Not on file documented as of this encounter Last Filed Vital Signs Vital Sign Reading Time Taken Comments Blood Pressure 127/86 07/23/2018 9:40 PM STRATEGIC ALLIANCES MANAGER Pulse 98 07/23/2018 9:40 PM STRATEGIC ALLIANCES MANAGER Temperature 36.8 ??C (98.2 ??F) 07/23/2018 9:40 PM CS T Respiratory Rate 16 07/23/2018 9:40 PM STRATEGIC ALLIANCES MANAGER Oxygen Saturation 98% 07/23/2018 9:40 PM STRATEGIC ALLIANCES MANAGER Inhaled Oxygen Concentration - - Weight 73.2 kg (161 lb 6 oz) 07/23/2018 9:40 PM STRATEGIC ALLIANCES MANAGER Height 152.4 cm (5') 07/23/2018 9:40 PM STRATEGIC ALLIANCES MANAGER Body Mass Index 31.52 07/23/2018 9:40 PM STRATEGIC ALLIANCES MANAGER Body Mass Index Percentile 97.10% 07/23/2018 9:4 0 PM STRATEGIC ALLIANCES MANAGER Growth Chart: [facility] (Girls, 2- 20 Years) documented in this encounter Discharge Instructions * Attachments The following attachments cannot be sent through Care Everywhere. * Tendinitis (AfterCare(R) Instructions(ER/ED)) (Sammarinese) * Rotator Cuff Tear (Sammarinese) * RICE (Sammarinese) documented in this encounter Medications at Time [...] documented in this encounter ED Notes * Az Perez MD - 07/23/2018 10:09 PM CST HPI Chief Complaint Patient presents with ??? Arm Pain (10:07 PM 07/23/2018): Rosalba So is a 13 y/o female with a history of anxiety presenting tot ED complaining of right arm pain that began a couple weeks ago while playing basketball. Deniesany injury or trauma. She notes the pain radiates up to her shoulder and down her back and is worsewhen she wakes up in the morning. Reports applying ice and taking Ibuprofen to mild relief of pain. Patient History There are no active problems [...] pain and palpitations. Gastrointestinal: Negative for abdominal pain and vomiting. Genitourinary: Negative for dysuria and hematuria. Musculoskeletal: Positive for arthralgias and myalgias. Negative for back pain. Skin: Negative for color change and rash. Neurological: Negative for seizures and syncope. All other systems reviewed and are negative. Physical Exam ED Triage Vitals [07/23/182139] Temp Pulse Resp BP SpO2 36.8 ??C (98.2 ??F) 98 16 127/86 98 % Temp src Heart Rate Source Patient Position BP Location FiO2 (%) Temporal -- -- -- -- Physical Exam Constitutional: She is oriented to person, place, and time. She appears well- developed and well-nourished. No distress. HENT: Head: Normocephalic and atraumatic. Eyes: Pupils are equal, round, and reactive to light. Conjunctivae and EOM are normal. Neck: Normal range of motion. Neck supple. Cardiovascular: Normal rate and regular rhythm. No murmur heard. Pulmonary/Chest: Effort normal and breath sounds normal. No respiratory distress. Abdominal: Soft. There is no tenderness. Musculoskeletal: She exhibits no edema or deformity. Pain with reaching behind back and external rotation concerning for rotator cuff injury/tendonitis.2+ pulses. No loss of pulse with lifting arm overhead. Do not suspect thoracic outlet syndrome Neurological: She is alert and oriented to person, place, and time. Skin: Skin is warm and dry. Psychiatric: She has a normal mood and affect. Her behavior is normal. Nursing note and vitals reviewed. [facility] Vitals: 07/23/182139 BP: 127/86 Pulse: 98 Resp: 16 Temp: 36.8 ??C (98.2 ??F) TempSrc: Temporal SpO2: 98% Weight: 73.2 kg (161 lb 6 oz) Height: 152.4 cm (5') Labs Reviewed - No data to display XR Shoulder Right 2 or More Views Final Result NORMAL. Electronically signed by: Benton Sweet M.D. [facility] Number of Diagnoses or Management Options Right shoulder tendonitis: Diagnosis management comments: Likely rotator cuff tendinitis. Do not suspect thoracic outlet syndrome. Good pulses. No signs for arterial venous or nerve damage or injury. Discussed with the patientand father. Discharge home. Amount and/or Complexity of Data Reviewed Tests in the radiology section of CPT??: reviewed ED Course as of Jul 23 2338 Time: 07/23 2334 Comment: Updated patient and her family on radiology results which was negative. Discussed plan fordischarge. Patient and her family understand and agree with the plan. By: Thee Lira IMPRESSION: 1. Right shoulder tendonitis ATTESTATIONS: 11:38 PM: This note is prepared by Thee Lira, acting as a scribe for Az Perez MD. I electronically signed this note at 11:38 PM on 07/23/2018. I, Az Perez MD have personally performed the services described in the documentation, reviewed the documentation, as recorded by the scribe in my presence, and it accurately and completely records my words and actions. Az Perez MD 07/23/182337 TEGIC ALLIANCES MANAGER * Gabe Wesley RN - 07/23/2018 9:40 PM CST Ambulate to triage c/o rt arm pain that started while shooting a basketball. Pain goes from elbow up into shoulder. TEGIC ALLIANCES MANAGER documented in this encounter Plan of Treatment Not on file documented as of this encounter Procedures Procedure Name Priority Date/Time Associated Diagnosis Comments XR SHOULDER RIGHT 2 OR MORE VIEWS ED 07/23/2018 10:30 PM STRATEGIC ALLIANCES MANAGER documented in this encounter Results * XR Shoulder Right 2 or More Views (07/23/2018 10:30 PM STRATEGIC ALLIANCES MANAGER) Anatomical Region Laterality Modality Upper Extremities, Shoulder Right Comp uted Radiography 07/23/2018 10:4 0 PM STRATEGIC ALLIANCES MANAGER Impressions 07/23/2018 10:42 PM STRATEGIC ALLIANCES MANAGER NORMAL. Electronically signed by: Benton Sweet M.D. Narrative 07/23/2018 10:42 PM STRATEGIC ALLIANCES MANAGER XR SHOULDER RIGHT 2 OR MORE VIEWS HISTORY: Persistent shoulder pain following a basketball injury 2 weeks ago. COMPARISON: None available. Views: 3 FINDINGS: There is no acute fracture, dislocation or focal bone abnormality. Procedure Note Benton Sweet MD - 07/23/2018 XR SHOULDER RIGHT 2 OR MORE VIEWS HISTORY: Persistent shoulder pain following a basketball injury 2 weeks ago. COMPARISON: None available. Views: 3 FINDINGS: There is no acute fracture, dislocation or focal bone abnormality. IMPRESSION: NORMAL. Electronically signed by: Benton Sweet M.D. Az Perez MD IMG XR PROCEDURES Fin al Result documented in this encounter Visit Diagnoses Diagnosis Right shoulder tendonitis- Primary documented in this encounter Historical Medications * This list may reflect changes made after this encounter. citalopram (CeleXA) 10 mg tablet Take 10 mg by mouth daily 0 06/27/2018 added in this encounter Orders Nursing Count Last Ordered Date First Orde red Date BRACE APPLICATION 1 07/23/2018 documented in this encounter Care Teams Senior Stack Engineer Relationship Specialty Start Date End Date Nelly Marcus PCP - General 11/17/17 06/30/20 documented as of this encounter
== END 2024-08-24 14:20 | disposition home or self-care (01) ==
PROVIDERS: Emergency Provider Nurse Practitioner Family; PCP Family Medicine
DX: J01.90 Acute sinusitis, unspecified (principal); F17.290 Nicotine dependence, other tobacco product, uncomplicated; F41.9 Anxiety disorder, unspecified; F31.9 Bipolar disorder, unspecified
CPT/HCPCS: 87804; 99213; G0463

== ENCOUNTER 2024-09-23 17:17 | Emergency (ER) | payer OTHER, SELFPAY ==
--- OUTSIDE RECORDS SUMMARY | 2024-09-23 17:20 | XMS_ITS | Clinical Summary ---
Author Organization [facility] Address [address] [place] [address] Phone Care Team Providers Care Machine Wedger Name Role Phone Radha Martins MD Primary Care Provider [phone] Allergies Active Allergy Reactions Criticality Noted Date [...] of blood coagulation disorder Elevated ferritin 02/21/2024 Encounters Date Type Department Care Team Description 09/18/2024 1:00 PM TIN POT OPERATOR Lab [facility] Oncology Services [address] [place] [address] Citlalli Talbert Kristyn, Elevated ferritin; Thrombocytosis Discharge Disposition: Discharged to home or Selfcare 09/18/2024 Travel from Last 3 Months Social History Tobacco Use Types Packs/Day Years [...] Sex Assigned at Female 10/25/2023 8:55 PM TIN POT OPERATOR Legal Sex Female 8:58 PM CDT Gender Identity Female 10/25/2023 8:55 PM TIN POT OPERATOR Sexual Orientation Not on file Last Filed [...] Care Team (Late st Contact Info) Description 09/27/2024 9:15 AM TIN POT OPERATOR Office Visit [facility] Oncology Services [address] [place] [address] Citlalli Talbert Kristyn, PAC [address] [place] [address] Discharge Disposition: Discharged to home or Selfcare Health Maintenance Due Date Last Done Comments Hepatitis C Virus (HCV) Screening 2003 Meningococcal B Immunization (1 of 2 - Standard) 2019 Influenza Immunization (#1) 2024 05/31/2016, 1 SARS-COV-2 Immunization (2023- season) 2024 Pap Smear 2024 Respiratory Syncytial Virus (RSV) Immunization (Adult) (1 - 1-dose 75+ series) 2078 Hepatitis B Immunization Completed 004, 2003, 2003, Additional history exists Pneumococcal Immunization Combined Aged Out 06/21/2005, 05/20/2004, 2003, Additional history exists No longer eligible based [...] on patient's age to complete this topic Procedures Procedure Name Priority Date/Time Associated Diagnosis Comments CBC WITH AUTO DIFFERENTIAL Routine 09/18/2024 1:28 PM TIN POT OPERATOR Thrombocytosis COMPLETE BLOOD COUNT (CBC) WITH DIFF Routine 09/18/2024 1:28 PM TIN POT OPERATOR Thrombocytosis FERRITIN Routine 09/18/2024 1:28 PM TIN POT OPERATOR Elevated ferritin from Last 3 Months Results * (ABNORMAL) CBC WITH AUTO DIFFERENTIAL (09/18/2024 1:28 PM TIN POT OPERATOR) WBC 12.34(H) 4.00 - 12.00 10(3)/mcL 09/18/2024 3:09 PM TIN POT OPERATOR [facility] RBC 4.23 3.80 - 5.30 10(6)/[facility] 09/18/2024 3:09 PM [facility] HEMOGLOBIN (HGB) 13.0 12.0 - 15.8 g/dL 09/18/2024 3:09 PM [facility] HEMATOCRIT (HCT) 39.1 36.0 - 47.0 % 09/18/2024 3:09 PM [facility] MCV 92.4 82.0 - 96.0 fL 09/18/2024 3:09 PM [facility] MCH 30.7 26.0 - 34.0 pg 09/18/2024 3:09 PM [facility] MCHC 33.2 31.0 - 36.0 g/dL 09/18/2024 3:09 PM [facility] PLATELET COUNT 505(H) 140 - 440 10(3)/[facility] 09/18/2024 3:09 PM [facility] RDW 12.5 11.8 - 15.5 % 09/18/2024 3:09 PM [facility] MPV 9.6(L) 9.7 - 12.4 fL 09/18/2024 3:09 PM [facility] NEUTROPHILS 81.9(H) 47.0 - 73.0 % 09/18/2024 3:09 PM [facility] LYMPHOCYTES 12.2(L) 18.0 - 42.0 % 09/18/2024 3:09 PM [facility] MONOCYTES 5.1 4.0 - 12.0 % 09/18/2024 3:09 PM [facility] EOSINOPHILS 0.2 0.0 - 5.0 % 09/18/2024 3:09 PM [facility] BASOPHILS 0.6 0.0 - 1.0 % 09/18/2024 3:09 PM [facility] ABSOLUTE NEUTROPHILS 10.12(H) 1.60 - 7.70 10(3)/[facility] 09/18/2024 3:09 PM [facility] ABSOLUTE LYMPHOCYTES 1.50 1.30 - 3.20 10(3)/mcL 09/18/2024 3:09 PM TIN POT OPERATOR [facility] ABSOLUTE MONOCYTES 0.63 0.20 - 1.00 10(3)/mcL 09/18/2024 3:09 PM TIN POT OPERATOR [facility] ABSOLUTE EOSINOPHIL 0.02 0.00 - 0.40 10(3)/mcL 09/18/2024 3:09 PM TIN POT OPERATOR [facility] ABSOLUTE BASOPHILS 0.07 0.00 - 0.10 10(3)/mcL 09/18/2024 3:09 PM TIN POT OPERATOR [facility] NRBC PER 100 WBC 0 09/18/19 3:09 PM TIN POT OPERATOR [facility] Blood Venipuncture / Unknown 09/18/2024 1:28 PM TIN POT OPERATOR 09/18/2024 1:28 PM TIN POT OPERATOR [facility] PAC HEMATOLOGY ORDERABLES Fin al Result [facility] [address] [place] [address] * FERRITIN (09/18/2024 1:28 PM TIN POT OPERATOR) FERRITIN 158 5 - 204 ng/mL 09/18/2024 3:44 PM TIN POT OPERATOR [facility] Blood Venipuncture / Unknown 09/18/2024 1:28 PM TIN POT OPERATOR 09/18/2024 1:28 PM TIN POT OPERATOR [facility] PAC CHEMISTRY ORDERABLES Hillary l Result [facility] [address] [place] [address] from Last 3 Months Insurance MEDICAID [facility] MEDICAID [facility]ID [facility] [employer] Care Teams Machine Wedger Relationship Specialty Start Date End Date Radha Martins MD [address] [place] [address] PCP - General Family Medicine 01/02/24
--- OUTSIDE RECORDS SUMMARY | 2024-09-23 17:20 | XMS_ITS | Encounter Summary ---
Author Organization [facility] Address [address] [place] [address] Phone Care Team Providers Care Balloon Artist Name Role Phone Jabari Bynum MD Primary Care Provider Provider, None Primary Care Provider Radha Muniz MD Primary Care Provider [phone] Encounter Details Date Type Department Care Team (Late st Contact Info) Description 06/30/2021 [facility] Ad[facility] [address] [place] [address] Jabari Bynum MD [address] [place] [address] Acute pharyngitis, unspecified etiology (Primary [...] Sex Assigned at Female 10/25/2023 8:55 PM FOOD EQUIPMENT SERVICE TECHNICIAN Legal Sex Female 8:58 PM CDT Gender Identity Female 10/25/2023 8:55 PM FOOD EQUIPMENT SERVICE TECHNICIAN Sexual Orientation Not on file documented as of this encounter Plan of Treatment Upcoming Encounters Date Type Department Care Team (Late st Contact Info) Description 09/27/2024 9:15 AM FOOD EQUIPMENT SERVICE TECHNICIAN Office Visit [facility] Oncology Services [address] [place] [phone] Citlalli Talbert Kristyn, PAC [address] [place] [address] Discharge Disposition: Discharged to home or Selfcare [...] 19 09/04/2022 09/04/2022 09/14/2022 12:1 6 AM FOOD EQUIPMENT SERVICE TECHNICIAN COVID - 19 02/27/2024 02/27/2024 02/27/2024 10:2 8 AM CDT documented as of this encounter Care Teams Balloon Artist Relationship Specialty Start Date End Date Jabari Bynum MD [address] [place] [address] PCP - General Pediatrics 06/19/18 09/03/22 Provider, None [place] PCP - General 09/04/22 01/01/24 Radha Martins MD [address] [place] [address] PCP - General Family Medicine 01/02/24 documented as of this encounter
--- OUTSIDE RECORDS SUMMARY | 2024-09-23 17:20 | XMS_ITS | Referral Summary ---
Author Organization [facility] Address [address] [place] [address] Care Team Providers Care Mapping Pilot Name Role Phone Jabari Bynum MD Primary Care Provider Encounters Date Type Department Care Team Description 09/18/2024 4:30 PM SILVICULTURE PROFESSOR Therapy [facility] [place] [address] [address] Naz Hammond, PT Pelvic and perineal pain (Primary Dx); Low back pain, unspecified back pain laterality, unspecified chronicity, unspecified whether sciatica present 08/12/[address] [address] Donald Davies NP 08/12/2024 9:45 AM SILVICULTURE PROFESSOR Office [facility] [address] [place] [address] Health 3rd Floor [address] [place] [address] Donald Davies NP Healthcare maintenance (Primary Dx) 08/02/2024 1:00 PM SILVICULTURE PROFESSOR Therapy [facility] Physical [place] [address] [address] Naz Hammond, PT Pelvic and perineal pain (Primary Dx); Low back pain, unspecified back pain laterality, unspecified chronicity, unspecified whether sciatica present 07/16/2024 9:15 AM SILVICULTURE PROFESSOR Therapy [facility] Physical [place] [address] [address] Naz Hammond, PT Pelvic and perineal pain (Primary Dx); Low back pain, unspecified back pain laterality, unspecified chronicity, unspecified whether sciatica present 07/04/2024 7:30 AM SILVICULTURE PROFESSOR Therapy [facility] Physical Therapy - [place] [address] [place] [address] Naz Hammond, PT Pelvic and perineal pain (Primary Dx); Low back pain, unspecified back pain laterality, unspecified chronicity, unspecified whether sciatica present from Last 3 Months Allergies Active Allergy Reactions Criticality Noted Date Comments Metoclopramide Other (See comments),Nausea & Vomiting Low 02/12/2024 Generalized burning sensation Medications citalopram (CeleXA) 10 mg tablet Take 10 mg by mouth daily 0 06/27/20 18 Active omeprazole (PriLOSEC) 40 mg capsule Take 1 capsule (40 mg total) by mouth daily 30 capsule 1 06/16/20 21 Active Additional Information Patient not taking.Reported on 12/27/2021 dicyclomine (BENTYL) 20 mg tablet Take 1 tablet (20 mg total) by mouth 2 (two) times a day 30 tablet 1 06/16/20 21 Active ondansetron (ZOFRAN) 4 mg tablet Take 1 tablet (4 mg total) by mouth every 8 (eight) hours as needed for nausea or vomiting 20 tablet 06/16/20 21 Active Additional Information Patient not taking.Reported on 08/24/2022 methylPREDNISolone (Medrol, Telly,) 4 mg DosepackIndications :Acute nasopharyngitis follow package directions 1 packet 09/05/19 22 Active Additional Information Patient not taking.Reported on 08/24/[address] (CYMBALTA) 20 mg capsule 07/07/20 21 Active lamoTRIgine (LaMICtal) 25 mg tablet Take 50 mg by mouth daily 10/30/19 22 Active ondansetron (Zofran) 4 mg tabletIndications:G astroenteritis Take 1 tablet (4 mg total) by mouth every 8 (eight) hours as needed for nausea or vomiting 20 tablet 12/28/19 22 Active Additional Information Patient not taking.Reported on 08/24/2022 buPROPion XL (WELLBUTRIN XL) 150 mg 24 hr tablet Take 1 tablet (150 mg total) by mouth daily 07/29/20 Active ondansetron ODT (ZOFRAN-ODT) 4 mg disintegrating tabletIndications:N ausea and vomiting, unspecified vomiting type Take 1 tablet (4 mg total) by mouth every 8 (eight) hours as needed for nausea or vomiting 20 tablet 08/24/20 22 Active Additional Information Patient not taking.Reported on 05/04/2023 prazosin (MINIPRESS) 2 mg capsule Take 1 capsule (2 mg total) by mouth nightly Active lurasidone (LATUDA) 40 mg tablet 1 tablet (40 mg total) daily Active cyclobenzaprine (FLEXERIL) 10 mg tablet TAKE 1 TABLET BY MOUTH THREE TIMES A DAY NEEDED FOR 14 DAYS 03/12/20 24 Active Incassia 0.35 mg tablet Take 1 tablet (0.35 mg total) by mouth daily 05/03/20 24 Active traZODone (DESYREL) 50 mg tablet Take 1 tablet (50 mg total) by mouth nightly 04/25/20 24 Active Active Problems Problem Noted Date Diagnosed [...] on file Legal Sex Female 3:14 AM SILVICULTURE PROFESSOR Gender Identity Not on file Sexual Orientation Not on file Last Filed Vital Signs Vital Sign Reading Time Taken Comments Blood Pressure 132/82 08/12/2024 9:55 AM SILVICULTURE PROFESSOR Pulse 92 08/12/2024 9:55 AM SILVICULTURE PROFESSOR Temperature 36.5 ??C (97.7 ??F) 05/21/2024 11:19 AM C DT Respiratory Rate 16 05/21/2024 11:19 AM CDT Oxygen Saturation 100% 08/12/2024 9:55 AM SILVICULTURE PROFESSOR Inhaled Oxygen Concentration - - Weight 58.6 kg (129 lb 3.2 oz) 08/12/2024 9:55 A M SILVICULTURE PROFESSOR Height 154.9 cm (5' 1 ) 05/21/2024 11:19 AM CDT Body Mass Index 24.41 05/21/2024 11:19 AM CDT Plan of Treatment Not on file Insurance [facility] [place] [address] Care Teams Mapping Pilot Relationship Specialty Start Date End Date Jabari Bynum MD PCP - General 07/01/20
--- OUTSIDE RECORDS SUMMARY | 2024-09-23 17:20 | XMS_ITS | Clinical Summary ---
Author Organization [facility] Address [address] [place] [address] Care Team Providers Care Aircraft Technician Name Role Phone Nelly Marcus MD Primary Care Provider [phone] Source Comments [facility],non-owned Affiliates and Associated Physician Practices is amultiple site organization consisting of ambulatory clinics and hospital sitesin [place], [place], [place] and [place]. This disclosure is being madepursuant to the Care Everywhere program and may not contain all information available regarding this patient. Last updated 18.[facility] Encover Allergies No known active allergies Medications * [...] 04/27/2016 Assessment & Plan (07/27/2016 3:57 PM EMERGENCY DEPARTMENT PHYSICIAN): Assessment: 11 year old girl with chronic [...] Comments Blood Pressure 102/78 09/17/2019 9:47 AM EMERGENCY DEPARTMENT PHYSICIAN Pulse 84 08/07/2019 7:48 AM EMERGENCY DEPARTMENT PHYSICIAN per p cp Temperature 36.8 ??C (98.3 ??F) 08/07/2019 7:48 AM CS T per pcp Respiratory Rate 20 03/28/2016 10:1 4 AM CDT per pcp Oxygen Saturation - - Inhaled Oxygen Concentration - - Weight 80.7 kg (177 lb 14.6 oz) 09/17/2019 9:47 AM EMERGENCY DEPARTMENT PHYSICIAN Height 155.5 cm (5' 1.22 ) 09/17/2019 9:47 AM CS T Body Mass Index 33.37 09/17/2019 9:47 AM EMERGENCY DEPARTMENT PHYSICIAN Plan of Treatment Health Maintenance Due Date Last Done Comments PAP SMEAR 2003 HIV SCREENING 2018 HPV VACCINE (1 - 3-dose series) 2018 CHLAMYDIA/GONORRHEA SCREENING 2019 MENINGOCOCCAL (Group B) VACC INE (1 of 2 - Standard) 2019 HEPATITIS C SCREENING 07/12/2021 DTAP/TDAP/TD VACCINES (1 - Tdap) 2022 HEPATITIS B VACCINE (1 of 3 - 19+ 3-dose series) 2022 COVID-19 VACCINE (1 - 2023-2 5 season) 2024 INFLUENZA VACCINE (#1) 2024 DEPRESSION SCREENING 08/28/2024 ZOSTER VACCINE (1 of 2) 2053 HIB VACCINE Aged Out No longer eligi ble based on patient's age to complete this topic MENINGOCOCCAL VACCINE Aged Out No raafel vanita eligible based on patient's age to complete this topic PNEUMOCOCCAL VACCINE Aged Out No long er eligible based on patient's age to complete this topic Care Teams Aircraft Technician Relationship Specialty Start Date End Date Nelly Marcus MD [address] [place] [id number] PCP - General 10/15/19
--- OUTSIDE RECORDS SUMMARY | 2024-09-23 17:20 | XMS_ITS | Referral Summary ---
Author Organization [facility] Address [address] [facility] [place] [address] Care Team Providers Care Interface Control Officer Name Role Phone Nelly Marcus MD Primary Care Provider [phone] Source Comments [facility],non-owned Affiliates and Associated Physician Practices is amultiple site organization consisting of ambulatory clinics and hospital sitesin [place], [place], [place] and [place]. This disclosure is being madepursuant to the Care Everywhere program and may not contain all information available regarding this patient. Last updated 18.[facility] Allergies No known active allergies Medications [...] 04/27/2016 Assessment & Plan (07/27/2016 3:57 PM EQUIPMENT OR MACHINERY CLEANER): Assessment: 11 year old girl with chronic [...] Comments Blood Pressure 102/78 09/17/2019 9:47 AM EQUIPMENT OR MACHINERY CLEANER Pulse 84 08/07/2019 7:48 AM EQUIPMENT OR MACHINERY CLEANER per p cp Temperature 36.8 ??C (98.3 ??F) 08/07/2019 7:48 AM CS T per pcp Respiratory Rate 20 03/28/2016 10:1 4 AM CDT per pcp Oxygen Saturation - - Inhaled Oxygen Concentration - - Weight 80.7 kg (177 lb 14.6 oz) 09/17/2019 9:47 AM EQUIPMENT OR MACHINERY CLEANER Height 155.5 cm (5' 1.22 ) 09/17/2019 9:47 AM CS T Body Mass Index 33.37 09/17/2019 9:47 AM EQUIPMENT OR MACHINERY CLEANER Plan of Treatment Not on file Care Teams Interface Control Officer Relationship Specialty Start Date End Date Nelly Marcus MD [address] [place] [address] PCP - General 10/15/19
--- OUTSIDE RECORDS SUMMARY | 2024-09-23 17:20 | XMS_ITS | Patient Health Summary ---
Author Organization [facility] Address [address] [facility] [place] [address] Care Team Providers Care Pipelines Laborer Name Role Phone Nelly Marcus MD Primary Care Provider [phone] Note from [facility],non-owned Affiliates and Associated Physician Practices is amultiple site organization consisting of ambulatory clinics and hospital sitesin [place], [place] and [place]. This disclosure is being madepursuant to the Care Everywhere program and may not contain all information available regarding this patient. Last updated 18.[facility] Allergies No known active allergies Medications * [...] Comments Blood Pressure 102/78 09/17/2019 9:47 AM PREPPER Pulse 84 08/07/2019 7:48 AM PREPPER per p cp Temperature 36.8 ??C (98.3 ??F) 08/07/2019 7:48 AM CS T per pcp Respiratory Rate 20 03/28/2016 10:1 4 AM CDT per pcp Oxygen Saturation - - Inhaled Oxygen Concentration - - Weight 80.7 kg (177 lb 14.6 oz) 09/17/2019 9:47 AM PREPPER Height 155.5 cm (5' 1.22 ) 09/17/2019 9:47 AM CS T Body Mass Index 33.37 09/17/2019 9:47 AM PREPPER Care Teams Pipelines Laborer Relationship Specialty Start Date End Date Nelly Marcus MD [address] [place] [address] PCP - General 10/15/19
--- OUTSIDE RECORDS SUMMARY | 2024-09-23 17:20 | XMS_ITS | Clinical Summary ---
Author Organization [facility] Address [address] [place] [address] Care Team Providers Care Chemical Manager Name Role Phone Jabari Bynum MD [...] (150 mg total) by mouth daily 07/29/20 22 Active ondansetron ODT (ZOFRAN-ODT) 4 mg disintegrating tabletIndications:N ausea and vomiting, unspecified vomiting type Take 1 tablet (4 mg total) by mouth every 8 (eight) hours as needed for nausea or vomiting 20 tablet 08/24/20 Active Additional Information Patient not taking.Reported on [...] Department Care Team Description 09/18/2024 4:30 PM PRODUCT COORDINATOR Therapy [facility] [place] [address] Naz Hammond, PT Pelvic and perineal pain (Primary Dx); Low back pain, unspecified back pain laterality, unspecified chronicity, unspecified whether sciatica present 08/12/2024 9:45 AM PRODUCT COORDINATOR Office Visit Obstetrics and Gynecology Clinic [facility] 3rd Floor [address] [place] [address] Donald Davies NP Healthcare maintenance (Primary Dx) 08/12/[address] [address] Donald Davies NP 08/02/2024 1:00 PM PRODUCT COORDINATOR Therapy [facility] [place] [address] [address] Naz Hammond, PT Pelvic and perineal pain (Primary Dx); Low back pain, unspecified back pain laterality, unspecified chronicity, unspecified whether sciatica present 07/16/2024 9:15 AM PRODUCT COORDINATOR Therapy [facility] [place] [address] Manish, Naz, PT Pelvic and perineal pain (Primary Dx); Low back pain, unspecified back pain laterality, unspecified chronicity, unspecified whether sciatica present 07/04/2024 7:30 AM PRODUCT COORDINATOR Therapy [facility] [place] [address] Manish, Naz, PT Pelvic and perineal pain (Primary Dx); Low back pain, unspecified back pain laterality, unspecified chronicity, unspecified whether sciatica present from Last 3 Months Surgical History Surgery Date Site/Laterality Comments TONSILLECTOMY MYRINGOTOMY W/ TUBES UPPER GASTROINTESTINAL ENDOSCOPY 7 - 08/27/2017 and colonoscopy Medical History Medical [...] on file Legal Sex Female 3:14 AM PRODUCT COORDINATOR Gender Identity Not on file Sexual Orientation Not on file Obstetrics History Last Filed Vital Signs Vital Sign Reading Time Taken Comments Blood Pressure 132/82 08/12/2024 9:55 AM PRODUCT COORDINATOR Pulse 92 08/12/2024 9:55 AM PRODUCT COORDINATOR Temperature 36.5 ??C (97.7 ??F) 05/21/2024 11:19 AM C DT Respiratory Rate 16 05/21/2024 11:19 AM CDT Oxygen Saturation 100% 08/12/2024 9:55 AM PRODUCT COORDINATOR Inhaled Oxygen Concentration - - Weight 58.6 kg (129 lb 3.2 oz) 08/12/2024 9:55 A M PRODUCT COORDINATOR Height 154.9 cm (5' 1 ) 05/21/2024 [...] Vaccine Completed 05/26/2021 , 03/30/2016, 03/30/2016 Insurance [facility] [place] [address] [facility] [place] [address] MEDICAID [facility] Member Subscriber Plan / Payer (Ef fective 2018-Present) Name:Rosalba So Relation to Subscriber:Self Name:Rosalba So Payer ID:[id number] (NAIC) Group ID:Not on file Type:MEDICAID RISK OTHER Address: ATTN: CLAIMS DEPT [address] [place] [phone] Care Teams Chemical Manager Relationship Specialty Start Date End Date Jabari Bynum MD PCP - General 07/01/20
--- OUTSIDE RECORDS SUMMARY | 2024-09-23 17:20 | XMS_ITS | Encounter Summary ---
Author Organization [facility] Address [address] [place] [address] Care Team Providers Care Documentation Analyst Name Role Phone Jabari Bynum MD Primary Care Provider Encounter Details Date Type Department Care Team (Late st Contact Info) Description 08/12/2024 Documentation [facility] [address] [place] [address] Donald Davies NP [address] [address] Social History Tobacco Use Types Packs/Day Years [...] on file Legal Sex Female 3:14 AM NATIONAL SERVICE OFFICER Gender Identity Not on file Sexual Orientation Not on file documented as of this encounter Plan of Treatment Not on file documented as of this encounter Visit Diagnoses Not on filedocumented in this encounter Care Teams Documentation Analyst Relationship Specialty Start Date End Date Jabari Bynum MD PCP - General 07/01/20 documented as of this encounter
[2024-09-23 18:04] VITALS: BP 133/70; PULSE 89; RESP 20; TEMP 37.2; O2SAT 100
[2024-09-23 20:06] LABS: EDSTREPNEGPOS1 Negative (Negative)
--- NOTE | 2024-09-23 20:12 | ED_ITS ---
HPI - URI/Sore Throat General Chief Complaint: Upper Respiratory Infection Stated Complaint: Sore Throat/Ear Pain Time Seen by Provider: 09/23/24 20:00 Source: patient Mode of arrival: ambulatory Limitations: no limitations History of Present Illness HPI Narrative: 19-year-old male presents to [facility] with complaints of sore throat and right ear pain. Patient reports that she has had a sore throat for the past 2 days states that it hurts to swallow and she states right ear started last night.Patient reports that she has not taken any OTC medications for her symptoms. MD elicited complaint: sore throat and other (right ear pain) Onset (ago): day(s) (2 days throat 1 day right ear pain) Pain scale (0-10): 9 Able to tolerate fluids by mouth: Yes Exacerbating factors: swallowing Treatments prior to arrival: none Related Data Home Medications ?Medication ?Instructions ?Recorded ?Confirmed ?Last Taken ?Type bupropion HCl 300 mg 24 hr tablet, 300 mg PO DAILY 07/22/24 07/22/24 Unknown History extended release buspirone 15 mg tablet mg 09/23/24 Unknown History Allergies Allergy/AdvReac Type Severity Reaction Status Date / Time metoclopramide (From Reglan) Allergy Unknown FELT ON Verified 09/23/24 18:10 FIRE Review of Systems Review of Systems: CONSTITUTIONAL: Reports malaise, chills, sweats, or fever. EYES: Denies visual changes, redness, or discharge. ENT: Reports rhinorrhea, congestion, sinus pain,right otalgia and positive for sore throat. CARDIOVASCULAR: Denies chest pain, palpitations, or edema. RESPIRATORY: Reports cough.? Denies dyspnea. GASTROINTESTINAL: Denies abdominal pain, nausea, vomiting, diarrhea SKIN: Denies rash or itching. MUSCULOSKELETAL: Denies myalgia. NEUROLOGIC: Denies headache. All systems reviewed & are unremarkable except as noted in HPI and below PMFSH Past Medical History Medical History UTI (urinary tract infection) Fracture of right hand Bipolar 1 disorder, mixed Anxiety and depression Ear infection Surgical History Surgical History History of placement of ear tubes History of tonsillectomy and adenoidectomy Social History Social History Smoking status: Current every day smoker Tobacco type: e-cigarettes/vaping Alcohol intake: never Substance use type: does not use Living arrangements: with family Gender identity (if verbalized by the patient): Female Comments At time of signature, agree with nursing past medical, surgical, social and family history. There is no relevant family history pertinent to the presenting complaint Exam Narrative: GENERAL: Well-appearing, well-nourished, and in no acute distress. HEAD: Normocephalic EYES: PERRLA, conjunctivae clear ENT: Nares clear, turbinates edematous and erythematous, clear discharge. Mucous membranes moist Right TM red and bulging, Left. TM pearly norwood with dull light reflex bilaterally; no tragal tenderness. Oropharynx erythematous without lesions. Tonsils not present and throat without exudate, no drooling, no hoarseness, no trismus, uvula midline.post nasal discharge. NECK: Supple. No lymphadenopathy CHEST: Clear to auscultation, breath sounds equal. No wheezing, rhonchi, rales, or stridor. No respiratory distress, speaks in full sentences.SAO2 100% on room air HEART: Regular rate and rhythm. No murmur heard. SKIN: Warm, dry, no rash. NEURO: Alert and oriented x3. PSYCH: Normal mood and affect Course Course Emergency Course: Patient is aware of diagnosis, understands and agrees to treatment plan.? Anticipatory guidance given.? Patient agrees to follow-up as directed and is aware of reasons to seek care at the emergency department. Portions of this record may have been created with voice recognition software Level of Care: Express Care Visit Vital Signs Vital signs: Vital Signs Temperature 37.2 C 09/23/24 18:04 Pulse Rate 89 09/23/24 18:04 Respiratory Rate 20 09/23/24 18:04 Blood Pressure 133/70 09/23/24 18:04 Pulse Oximetry 100 09/23/24 18:04 Oxygen Delivery Room Air 09/23/24 18:04 Temperature 37.2 C 09/23/24 18:04 Pulse Rate 89 09/23/24 18:04 Respiratory Rate 20 09/23/24 18:04 Blood Pressure 133/70 09/23/24 18:04 Pulse Oximetry 100 09/23/24 18:04 Oxygen Delivery Room Air 09/23/24 18:04 Reviewed MDM - URI/Sore Throat MDM Narrative Medical decision making narrative: Differential diagnosis considered: Strickland virus, strep pharyngitis, allergic rhinitis, upper respiratory tract infection, sinusitis, rhinosinusitis, nasopharyngitis. viral pharyngitis, otitis media, otitis externa, pneumonia, bronchitis, viral cough syndrome, viral syndrome, and influenza.? Exam findings show no acute concerns or changes; patient is non-toxic appearing and is in no distress.? Patient is appropriate for outpatient treatment and follow-up. Differential Diagnosis Differential diagnosis: Likely upper respiratory infection, otitis media, viral infection, pharyngitis and other (strep pharyngitis) Medical Records Attestation: I reviewed the patient's medical records. Lab Data Attestation: I reviewed the patient's lab results. Lab results narrative: strep screen negative, strep culture sent Labs: Lab Results 09/23/24 Range/Units 19:31 POC Grp A Strep Screen Negative (Negative) reviewed Critical Care Time Critical Care Time Critical Care Time: No Discharge Plan Discharge Clinical Impression: Otitis media, right Qualifiers: Otitis media type: serous Chronicity: acute Recurrence: non-recurrent Qualified Code(s): H65.01 - Acute serous otitis media, right ear Pharyngitis Qualifiers: Pharyngitis/tonsillitis etiology: unspecified etiology Qualified Code(s): J02.9 - Acute pharyngitis, unspecified Patient Disposition: Home, Self-Care Condition: Stable Instructions: Antibiotic Form, Ear Infection (GEN) Additional Instructions: Increase fluids especially juices and water [id number]-fmdzuvw cough and cold medicine of your choice for your symptoms heat to the face 20-30 minutes 4-6 times a day for pain Salt water gargles, throat lozenges or throat sprays as desired Antibiotic as directed--finished the medication If your symptoms persist, change or worsen significantly before you can contact your personal physician then please, without delay, go to the emergency department for further evaluation. Follow-up with PCP in 7-10 days or sooner if needed Follow up with PCP soon in regards to your blood pressure which is elevated above threshold for referral. Blood pressure above 120/80 may indicate pre- hypertension. 133/70 Patient Language: Lithuanian Prescriptions: New amoxicillin 500 mg capsule 1,000 mg PO Q12H 10 Days Qty: 40 0RF No Action bupropion HCl 300 mg tablet extended release 24 hr 300 mg PO DAILY buspirone 15 mg tablet Follow-up/Referrals: Eliezer,Radha Benoit MD [Primary Care Provider] - Time of Disposition: 20:19 Quality Janet Coma Scale Eyes: Open Verbal: Oriented and Alert Motor: Follows Commands [place] Coma Total Score: 15
== END 2024-09-23 20:23 | disposition home or self-care (01) ==
PROVIDERS: Emergency Provider Registered Nurse; PCP Family Medicine
DX: H65.01 Acute serous otitis media, right ear (principal); J02.9 Acute pharyngitis, unspecified; F17.290 Nicotine dependence, other tobacco product, uncomplicated; F41.9 Anxiety disorder, unspecified; F32.A Depression, unspecified
CPT/HCPCS: 87081; 87880; 99213; G0463

== ENCOUNTER 2024-10-09 16:43 | Emergency (ER) | payer OTHER, SELFPAY ==
--- OUTSIDE RECORDS SUMMARY | 2024-10-09 16:45 | XMS_ITS | Encounter Summary ---
Author Organization [facility] Address [address] [place] [address] Phone Care Team Providers Care Loft Patternmaker Name Role Phone Jabari Bynum MD Primary Care Provider Provider, None Primary Care Provider Radha Muniz MD Primary Care Provider [phone] Encounter Details Date Type Department Care Team (Late st Contact Info) Description 06/30/2021 [facility] Ad[facility] [address] [place] [address] Jabari Bynum MD [address] [place] [address] Acute pharyngitis, unspecified etiology (Primary [...] Sex Assigned at Female 10/25/2023 8:55 PM EMERGENCY ROOM ORDERLY Legal Sex Female 8:58 PM CDT Gender Identity Female 10/25/2023 8:55 PM EMERGENCY ROOM ORDERLY Sexual Orientation Not on file documented as of this encounter Plan of Treatment Upcoming Encounters Date Type Department Care Team (Late st Contact Info) Description 03/20/2025 9:30 AM CDT [facility] [address] [place] [address] Citlalli Talbert, PAC [address] [place] [address] Discharge Disposition: Discharged to home or Selfcare 03/27/2025 9:40 AM CDT [facility] [address] [place] [address] Citlalli Talbert, PAC [address] [place] [address] Discharge Disposition: Discharged to home or Selfcare [...] 19 09/04/2022 09/04/2022 09/14/2022 12:1 6 AM EMERGENCY ROOM ORDERLY COVID - 19 02/27/2024 02/27/2024 02/27/2024 10:2 8 AM CDT documented as of this encounter Care Teams Loft Patternmaker Relationship Specialty Start Date End Date Jabari Bynum MD [address] [place] [address] PCP - General Pediatrics 06/19/18 09/03/22 Provider, None [place] PCP - General 09/04/22 01/01/24 Radha Martins MD [address] [place] [address] PCP - General Family Medicine 01/02/24 documented as of this encounter
--- OUTSIDE RECORDS SUMMARY | 2024-10-09 16:45 | XMS_ITS | Patient Health Summary ---
Author Organization [facility] Address [address] [place] [address] Care Team Providers Care Unit Technician Name Role Phone Nelly Marcus MD Primary Care Provider [phone] Note from [facility],non-owned Affiliates and Associated Physician Practices is amultiple site organization consisting of ambulatory clinics and hospital sitesin [place], [place], [place] and [place]. This disclosure is being madepursuant to the Care Everywhere program and may not contain all information available regarding this patient. Last updated 18.[facility] Allergies No known active allergies Medications [...] Comments Blood Pressure 102/78 09/17/2019 9:47 AM PATIENT SUPPORT ASSISTANT Pulse 84 08/07/2019 7:48 AM PATIENT SUPPORT ASSISTANT per p cp Temperature 36.8 C (98.3 F) 08/07/2019 7:48 AM PATIENT SUPPORT ASSISTANT per pcp Respiratory Rate 20 03/28/2016 10:1 4 AM CDT per pcp Oxygen Saturation - - Inhaled Oxygen Concentration - - Weight 80.7 kg (177 lb 14.6 oz) 09/17/2019 9:47 AM PATIENT SUPPORT ASSISTANT Height 155.5 cm (5' 1.22 ) 09/17/2019 9:47 AM CS T Body Mass Index 33.37 09/17/2019 9:47 AM PATIENT SUPPORT ASSISTANT Care Teams Unit Technician Relationship Specialty Start Date End Date Nelly Marcus MD [address] [place] [address] PCP - General 10/15/19
--- OUTSIDE RECORDS SUMMARY | 2024-10-09 16:45 | XMS_ITS | Clinical Summary ---
Author Organization [facility] Address [address] [place] [address] Phone Care Team Providers Care Dry Cleaner Hand Name Role Phone Radha Martins MD Primary Care Provider [phone] Allergies Active Allergy Reactions Criticality Noted Date Comments Metoclopramide Anxiety 09/04/2022 Medications buPROPion (Wellbutrin XL) 150 MG XL tablet Take 450 mg by mouth every morning. Active prazosin (MINIPRESS) 2 MG Capsule Take 2 mg by mouth nightly. Active busPIRone (BUSPAR) 15 MG Tablet Take 15 mg by mouth 2 times daily. 09/12/19 25 Active cyclobenzaprine (FLEXERIL) 10 MG Tablet Take 10 mg by mouth 3 times daily as needed. 03/12/20 24 Active traZODone (DESYREL) 50 MG Tablet Take 50 mg by mouth nightly. Active amoxicillin (AMOXIL) 500 MG Capsule Take 1,000 mg by mouth 2 times daily. 09/23/19 25 Active aspirin EC 81 MG Tablet Delayed ResponseIndicat ions:thrombocyt osis Take 81 mg by mouth daily. Indications: thrombocytosis Active lurasidone (LATUDA) 40 MG Tablet Take by mouth. 025 Discontin ued(Med List Clean Up) ondansetron (ZOFRAN-ODT) 4 MG TABLET DISPERSIBLE Take 1 Tablet by mouth every 8 hours as needed for Nausea - 1st line. 10 Tablet 02/27/20 24 025 Discontin ued(Med List Clean Up) ondansetron (ZOFRAN-ODT) 4 MG TABLET DISPERSIBLE Take 1 Tablet by mouth every 8 hours as needed for Nausea - 1st line. 10 Tablet 03/19/20 24 025 Discontin ued(Med List Clean Up) Active Problems Problem Noted Date Diagnosed Date Factor 5 Leiden mutation, heterozygous 4 Thrombocytosis 02/21/2024 Family history of blood coagulation disorder Elevated ferritin 02/21/2024 Encounters Date Type Department Care Team Description 09/27/2024 9:15 AM FEATHER MAKER [facility] [address] [place] [phone] Citlalli Talbert Kristyn, PAC Thrombocytosis (Primary Dx); Factor 5 Leiden mutation, heterozygous (HCC); Elevated ferritin Discharge Disposition: Discharged to home or Selfcare 09/27/2024 Travel 09/18/2024 1:00 PM FEATHER MAKER Lab [facility] [address] [place] [address] Citlalli Talbert Kristyn, [facility] Elevated ferritin; Thrombocytosis Discharge Disposition: Discharged to [...] Sex Assigned at Female 10/25/2023 8:55 PM FEATHER MAKER Legal Sex Female 8:58 PM CDT Gender Identity Female 10/25/2023 8:55 PM FEATHER MAKER Sexual Orientation Not on file Last Filed Vital Signs Vital Sign Reading Time Taken Comments Blood Pressure 108/73 09/27/2024 9:25 AM FEATHER MAKER Pulse 81 09/27/2024 9:25 AM FEATHER MAKER Temperature 36.8 C (98.2 F) 09/27/2024 9:25 AM FEATHER MAKER Respiratory Rate 20 03/20/2024 2:17 PM CDT Oxygen Saturation 100% 09/27/2024 9:25 AM FEATHER MAKER Inhaled Oxygen Concentration - - Weight 58.2 kg (128 lb 4.8 oz) 09/27/2024 9:25 A M FEATHER MAKER Height 152.4 cm (5') 09/27/2024 9:25 AM FEATHER MAKER Body Mass Index 25.06 09/27/2024 9:25 AM FEATHER MAKER Plan of Treatment Upcoming Encounters Date Type Department Care Team (Late st Contact Info) Description 03/20/2025 9:30 AM CDT [facility] [address] [place] [address] Citlalli Talbert Kristyn, PAC [address] [place] [address] Discharge Disposition: Discharged to home or Selfcare 03/27/2025 9:40 AM CDT [facility] [address] [place] [address] Citlalli Talbert Kristyn, PAC [address] [place] [address] Discharge Disposition: Discharged to home or Selfcare Health Maintenance Due Date Last Done Comments Hepatitis C Virus (HCV) Screening 2003 Meningococcal B Immunization (1 of 2 - Standard) 2019 Influenza Immunization (#1) 2024 05/31/2016, 1 SARS-COV-2 Immunization ( - season) 2024 Pap Smear 2024 Respiratory Syncytial [...] WITH AUTO DIFFERENTIAL Routine 09/18/2024 1:28 PM FEATHER MAKER Thrombocytosis COMPLETE BLOOD COUNT (CBC) WITH DIFF Routine 09/18/2024 1:28 PM FEATHER MAKER Thrombocytosis FERRITIN Routine 09/18/2024 1:28 PM FEATHER MAKER Elevated ferritin from Last 3 Months Results * (ABNORMAL) CBC WITH AUTO DIFFERENTIAL (09/18/2024 1:28 PM FEATHER MAKER) WBC 12.34(H) 4.00 - 12.00 10(3)/mcL 09/18/2024 3:09 PM FEATHER MAKER [facility] RBC 4.23 3.80 - 5.30 10(6)/mcL 09/18/2024 3:09 PM FEATHER MAKER [facility] HEMOGLOBIN (HGB) 13.0 12.0 - 15.8 g/dL 09/18/2024 3:09 PM FEATHER MAKER [facility] HEMATOCRIT (HCT) 39.1 36.0 - 47.0 % 09/18/2024 3:09 PM FEATHER MAKER [facility] MCV 92.4 82.0 - 96.0 fL 09/18/2024 3:09 PM FEATHER MAKER [facility] MCH 30.7 26.0 - 34.0 pg 09/18/2024 3:09 PM [facility] MCHC 33.2 31.0 - 36.0 g/dL 09/18/2024 3:09 PM [facility] PLATELET COUNT 505(H) 140 - 440 10(3)/[facility] 09/18/2024 3:09 PM [facility] RDW 12.5 11.8 - 15.5 % 09/18/2024 3:09 PM [facility] MPV 9.6(L) 9.7 - 12.4 fL 09/18/2024 3:09 PM [facility] NEUTROPHILS 81.9(H) 47.0 - 73.0 % 09/18/2024 3:09 PM [facility] LYMPHOCYTES 12.2(L) 18.0 - 42.0 % 09/18/2024 3:09 PM [facility] MONOCYTES 5.1 4.0 - 12.0 % 09/18/2024 3:09 PM [facility] EOSINOPHILS 0.2 0.0 - 5.0 % 09/18/2024 3:09 PM [facility] BASOPHILS 0.6 0.0 - 1.0 % 09/18/2024 3:09 PM [facility] ABSOLUTE NEUTROPHILS 10.12(H) 1.60 - 7.70 10(3)/[facility] 09/18/2024 3:09 PM [facility] ABSOLUTE LYMPHOCYTES 1.50 1.30 - 3.20 10(3)/[facility] 09/18/2024 3:09 PM [facility] ABSOLUTE MONOCYTES 0.63 0.20 - 1.00 10(3)/[facility] 09/18/2024 3:09 PM [facility] ABSOLUTE EOSINOPHIL 0.02 0.00 - 0.40 10(3)/[facility] 09/18/2024 3:09 PM [facility] ABSOLUTE BASOPHILS 0.07 0.00 - 0.10 10(3)/[facility] 09/18/2024 3:09 PM [facility] NRBC PER 100 WBC 0 09/18/19 3:09 PM FEATHER MAKER [facility] Blood Venipuncture / Unknown 09/18/2024 1:28 PM FEATHER MAKER 09/18/2024 1:28 PM FEATHER MAKER [facility] PAC HEMATOLOGY ORDERABLES Fin al Result [facility] [address] [place] [address] * FERRITIN (09/18/2024 1:28 PM FEATHER MAKER) FERRITIN 158 5 - 204 ng/mL 09/18/2024 3:44 PM FEATHER MAKER [facility] Blood Venipuncture / Unknown 09/18/2024 1:28 PM FEATHER MAKER 09/18/2024 1:28 PM FEATHER MAKER [facility] PAC CHEMISTRY ORDERABLES Hillary l Result Performing Organization Address City/[facility]/ZIP Co de Phone Number [facility] [address] [place] [address] from Last 3 Months Insurance MEDICAID [employer] [address] [place] [id number] [employer]ICAID [employer] Care Teams Dry Cleaner Hand Relationship Specialty Start Date End Date Radha Martins MD [address] [place] [address] PCP - General Family Medicine 01/02/24
--- OUTSIDE RECORDS SUMMARY | 2024-10-09 16:45 | XMS_ITS | Encounter Summary ---
Author Organization [facility] Address [address] [place] [address] Care Team Providers Care Superintendent Meter Tests Name Role Phone Jabari Bynum MD Primary Care Provider Encounter Details Date Type Department Care Team (Late st Contact Info) Description 08/12/2024 Documentation [facility] [address] [place] [address] Donald Davies NP [address] [address] Social History Tobacco Use Types Packs/Day Years [...] on file Legal Sex Female 3:14 AM RATCHET SETTER Gender Identity Not on file Sexual Orientation Not on file documented as of this encounter Plan of Treatment Not on file documented as of this encounter Visit Diagnoses Not on filedocumented in this encounter Care Teams Superintendent Meter Tests Relationship Specialty Start Date End Date Jabari Bynum MD PCP - General 07/01/20 documented as of this encounter
--- OUTSIDE RECORDS SUMMARY | 2024-10-09 16:45 | XMS_ITS | Referral Summary ---
Author Organization [facility] Address [address] [place] [address] Care Team Providers Care Flight Operations Inspector Name Role Phone Nelly Marcus MD Primary Care Provider [phone] Source Comments [facility],non-owned Affiliates and Associated Physician Practices is amultiple site organization consisting of ambulatory clinics and hospital sitesin [place], [place], [place] and [place]. This disclosure is being madepursuant to the Care Everywhere program and may not contain all information available regarding this patient. Last updated 18.[facility] Allergies No known active allergies Medications [...] 04/27/2016 Assessment & Plan (07/27/2016 3:57 PM AUTOMOTIVE SOFTWARE ENGINEER): Assessment: 11 year old girl with chronic [...] Comments Blood Pressure 102/78 09/17/2019 9:47 AM AUTOMOTIVE SOFTWARE ENGINEER Pulse 84 08/07/2019 7:48 AM AUTOMOTIVE SOFTWARE ENGINEER per p cp Temperature 36.8 C (98.3 F) 08/07/2019 7:48 AM AUTOMOTIVE SOFTWARE ENGINEER per pcp Respiratory Rate 20 03/28/2016 10:1 4 AM CDT per pcp Oxygen Saturation - - Inhaled Oxygen Concentration - - Weight 80.7 kg (177 lb 14.6 oz) 09/17/2019 9:47 AM AUTOMOTIVE SOFTWARE ENGINEER Height 155.5 cm (5' 1.22 ) 09/17/2019 9:47 AM CS T Body Mass Index 33.37 09/17/2019 9:47 AM AUTOMOTIVE SOFTWARE ENGINEER Plan of Treatment Not on file Care Teams Flight Operations Inspector Relationship Specialty Start Date End Date Nelly Marcus MD [address] [place] [address] PCP - General 10/15/19
--- OUTSIDE RECORDS SUMMARY | 2024-10-09 16:45 | XMS_ITS | Clinical Summary ---
Author Organization [facility] Address [address] [place] [address] Care Team Providers Care Band Director Name Role Phone Nelly Marcus MD Primary Care Provider [phone] Source Comments [facility],non-owned Affiliates and Associated Physician Practices is amultiple site organization consisting of ambulatory clinics and hospital sitesin [place], [place], [place] and [place]. This disclosure is being madepursuant to the Care Everywhere program and may not contain all information available regarding this patient. Last updated 18.[facility] Company Allergies No known active allergies Medications * [...] 04/27/2016 Assessment & Plan (07/27/2016 3:57 PM BOX TRUCK WASHER): Assessment: 11 year old girl with chronic [...] Comments Blood Pressure 102/78 09/17/2019 9:47 AM BOX TRUCK WASHER Pulse 84 08/07/2019 7:48 AM BOX TRUCK WASHER per p cp Temperature 36.8 C (98.3 F) 08/07/2019 7:48 AM BOX TRUCK WASHER per pcp Respiratory Rate 20 03/28/2016 10:1 4 AM CDT per pcp Oxygen Saturation - - Inhaled Oxygen Concentration - - Weight 80.7 kg (177 lb 14.6 oz) 09/17/2019 9:47 AM BOX TRUCK WASHER Height 155.5 cm (5' 1.22 ) 09/17/2019 9:47 AM CS T Body Mass Index 33.37 09/17/2019 9:47 AM BOX TRUCK WASHER Plan of Treatment Health Maintenance Due Date [...] age to complete this topic Care Teams Band Director Relationship Specialty Start Date End Date Nelly Marcus MD [facility] [place] [id number] PCP - General 10/15/19
--- OUTSIDE RECORDS SUMMARY | 2024-10-09 16:45 | XMS_ITS | Referral Summary ---
Author Organization [facility] Address [address] [place] [address] Care Team Providers Care Reliability Specialist Name Role Phone Jabari Bynum MD Primary Care Provider Encounters Date Type Department Care Team Description 09/18/2024 4:30 PM SPEED WINDER Therapy [facility] [place] [address] [address] Naz Hammond, PT Pelvic and perineal pain (Primary Dx); Low back pain, unspecified back pain laterality, unspecified chronicity, unspecified whether sciatica present 08/12/[address] [address] Donald Davies NP 08/12/2024 9:45 AM SPEED WINDER Office [facility] [address] [place] [address] Health 3rd Floor [address] [place] [address] Donald Davies NP Healthcare maintenance (Primary Dx) 08/02/2024 1:00 PM SPEED WINDER Therapy [facility] [place] [address] [address] Naz Hammond, PT Pelvic and perineal pain (Primary Dx); Low back pain, unspecified back pain laterality, unspecified chronicity, unspecified whether sciatica present 07/16/2024 9:15 AM SPEED WINDER Therapy [facility] [place] [address] [address] Naz Hammond, JAMAL Pelvic and perineal pain (Primary Dx); Low [...] on file Legal Sex Female 3:14 AM SPEED WINDER Gender Identity Not on file Sexual Orientation Not on file Last Filed Vital Signs Vital Sign Reading Time Taken Comments Blood Pressure 132/82 08/12/2024 9:55 AM SPEED WINDER Pulse 92 08/12/2024 9:55 AM SPEED WINDER Temperature 36.5 C (97.7 F) 05/21/2024 11:19 AM CDT Respiratory Rate 16 05/21/2024 11:19 AM CDT Oxygen Saturation 100% 08/12/2024 9:55 AM SPEED WINDER Inhaled Oxygen Concentration - - Weight 58.6 kg (129 lb 3.2 oz) 08/12/2024 9:55 A M SPEED WINDER Height 154.9 cm (5' 1 ) 05/21/2024 11:19 AM CDT Body Mass Index 24.41 05/21/2024 11:19 AM CDT Plan of Treatment Not on file Insurance [facility] Member Subscriber Plan / Payer (Ef fective 2023-Present) Name:So Rosalba Kolb Relation to Subscriber:Self Name:Rosalba So Payer ID:[id number] (NAIC) Group ID:Not on file Type:MEDICAID RISK OTHER Address: ATTN: [place] [place] [id number] [facility] [place] [address] MEDICAID [facility] Care Teams Reliability Specialist Relationship Specialty Start Date End Date Jabari Bynum MD PCP - General 07/01/20
--- OUTSIDE RECORDS SUMMARY | 2024-10-09 16:45 | XMS_ITS | Clinical Summary ---
Author Organization [facility] Address [address] [place] [address] Care Team Providers Care Custom Car Builder Name Role Phone Jabari Bynum MD Primary [...] Department Care Team Description 09/18/2024 4:30 PM CEMENTER MACHINE Therapy [facility] [place] [address] Naz Hammond, PT Pelvic and perineal pain (Primary Dx); Low back pain, unspecified back pain laterality, unspecified chronicity, unspecified whether sciatica present 08/12/2024 9:45 AM CEMENTER MACHINE Office Visit Obstetrics and Gynecology Clinic [facility] Outpatient Health 3rd Floor [address] [place] [address] Donald Davies NP Healthcare maintenance (Primary Dx) 08/12/[address] [address] Donald Davies NP 08/02/2024 1:00 PM CEMENTER MACHINE Therapy [facility] Physical Therapy [place] [address] [address] Naz Hammond, PT Pelvic and perineal pain (Primary Dx); Low back pain, unspecified back pain laterality, unspecified chronicity, unspecified whether sciatica present 07/16/2024 9:15 AM CEMENTER MACHINE Therapy [facility] Physical [place] [address] Manish, Naz, PT Pelvic and perineal pain [...] on file Legal Sex Female 3:14 AM CEMENTER MACHINE Gender Identity Not on file Sexual Orientation Not on file Obstetrics History Last Filed Vital Signs Vital Sign Reading Time Taken Comments Blood Pressure 132/82 08/12/2024 9:55 AM CEMENTER MACHINE Pulse 92 08/12/2024 9:55 AM CEMENTER MACHINE Temperature 36.5 C (97.7 F) 05/21/2024 11:19 AM CDT Respiratory Rate 16 05/21/2024 11:19 AM CDT Oxygen Saturation 100% 08/12/2024 9:55 AM CEMENTER MACHINE Inhaled Oxygen Concentration - - Weight 58.6 kg (129 lb 3.2 oz) 08/12/2024 9:55 A M CEMENTER MACHINE Height 154.9 cm (5' 1 ) 05/21/2024 [...] 03/30/2026 03/30/2016, 09/03/2007, 06/21/2005, Additional history exists Hepatitis B Screening Completed 05/20/2004 , 2003, 2003, Additional history exists Pneumococcal vaccine <65 Completed 005, 05/23/2004, 05/20/2004, Additional history exists Varicella Vaccines Completed 09/03/2007, 07/27/2004 HPV Vaccines Completed 05/15/2017, 11/2015, 03/30/2016 Meningococcal Vaccine Completed 05/26/2021 , 03/30/2016, 03/30/2016 Insurance [facility] [id number] [place] [address] [facility] MEDICAID [facility] [place] [address] Care Teams Custom Car Builder Relationship Specialty Start Date End Date Jabari Bynum MD PCP - General 07/01/20
[2024-10-09 16:47] VITALS: BP 123/88; PULSE 89; RESP 18; TEMP 36.5; O2SAT 100
--- NOTE | 2024-10-09 17:04 | ED_ITS ---
HPI - URI/Sore Throat General Chief Complaint: Upper Respiratory Infection Stated Complaint: Congestion/Fever/No Taste or Smell/Sore Throat Time Seen by Provider: 10/09/24 17:00 Source: patient, RN notes reviewed and old records reviewed Mode of arrival: ambulatory Limitations: no limitations History of Present Illness HPI Narrative: 19 year old female presents to [facility] care with complaints of headache, cough, vomiting, body aches, no taste, nasal congestion, sore throat, nose bleed with symptoms started yesterday. Patient reports that she had a 102.4F fever and has been taking Tylenol and cold and flu medication for her symptoms and fevers .with last dose this morning. Patient reports that she just completed Amoxicillin for an ear infection. Patient concerned since she just started new job. MD elicited complaint: fever, cough, sore throat, rhinorrhea, nasal congestion and other (body aches, vomiting, no taste) Onset (ago): day(s) Severity: moderate Able to tolerate fluids by mouth: Yes Treatments prior to arrival: acetaminophen and other (cold and flu medication) Related Data Home Medications ?Medication ?Instructions ?Recorded ?Confirmed ?Last Taken ?Type bupropion HCl 300 mg 24 hr tablet, 300 mg PO DAILY 07/22/24 07/22/24 Unknown History extended release buspirone 15 mg tablet mg 09/23/24 Unknown History Allergies Allergy/AdvReac Type Severity Reaction Status Date / Time metoclopramide (From Reglan) Allergy Unknown FELT ON Verified 10/09/24 16:56 FIRE Review of Systems Review of Systems: CONSTITUTIONAL:reports malaise, chills, sweats, or fever. EYES: Denies visual changes, redness, or discharge. ENT: Reports rhinorrhea, congestion, sinus pain, no otalgia and positive for sore throat, no taste and one episode of nose bleed. CARDIOVASCULAR: Denies chest pain, palpitations, or edema. RESPIRATORY: Reports cough.? Denies dyspnea. GASTROINTESTINAL: Denies abdominal pain,positive for nausea, vomiting,no diarrhea SKIN: Denies rash or itching. MUSCULOSKELETAL: reports myalgia. NEUROLOGIC: Denies headache. All systems reviewed & are unremarkable except as noted in HPI and below PMFSH Past Medical History Medical History UTI (urinary tract infection) Fracture of right hand Bipolar 1 disorder, mixed Anxiety and depression Ear infection Surgical History Surgical History History of placement of ear tubes History of tonsillectomy and adenoidectomy Social History Social History Smoking status: Current every day smoker Tobacco type: e-cigarettes/vaping Alcohol intake: never Substance use type: does not use Living arrangements: with family Gender identity (if verbalized by the patient): Female Comments At time of signature, agree with nursing past medical, surgical, social and family history. There is no relevant family history pertinent to the presenting complaint Exam Narrative: GENERAL: Ill-appearing, well-nourished, and in no acute distress. HEAD: Normocephalic EYES: PERRLA, conjunctivae clear ENT: Nares clear, turbinates edematous and erythematous, clear discharge. Mucous membranes moist. TM pearly norwood with dull light reflex bilaterally; no tragal tenderness. Oropharynx erythematous without lesions. Tonsils not present and throat without exudate, no drooling, no hoarseness, no trismus, uvula midline.post nasal drainage NECK: Supple. No lymphadenopathy CHEST: Clear to auscultation, breath sounds equal. No wheezing, rhonchi, rales, or stridor. No respiratory distress, speaks in full sentences.harsh cough SAO2 100% on room air HEART: Regular rate and rhythm. No murmur heard. SKIN: Warm, dry, no rash. NEURO: Alert and oriented x3. PSYCH: Normal mood and affect Course Course Emergency Course: Patient is aware of diagnosis, understands and agrees to treatment plan.? Anticipatory guidance given.? Patient agrees to follow-up as directed and is aware of reasons to seek care at the emergency department. Portions of this record may have been created with voice recognition software Level of Care: Express Care Visit Vital Signs Vital signs: Vital Signs Temperature 36.5 C 10/09/24 16:47 Pulse Rate 89 10/09/24 16:47 Respiratory Rate 18 10/09/24 16:47 Blood Pressure 123/88 10/09/24 16:47 Pulse Oximetry 100 10/09/24 16:47 Oxygen Delivery Room Air 10/09/24 16:47 Temperature 36.5 C 10/09/24 16:47 Pulse Rate 89 10/09/24 16:47 Respiratory Rate 18 10/09/24 16:47 Blood Pressure 123/88 10/09/24 16:47 Pulse Oximetry 100 10/09/24 16:47 Oxygen Delivery Room Air 10/09/24 16:47 Reviewed MDM - URI/Sore Throat MDM Narrative Medical decision making narrative: Differential diagnosis considered: Strickland virus, strep pharyngitis, allergic rhinitis, upper respiratory tract infection, sinusitis, rhinosinusitis, nasopharyngitis. viral pharyngitis, otitis media, otitis externa, pneumonia, bronchitis, viral cough syndrome, viral syndrome, and influenza.? Exam findings show no acute concerns or changes; patient is non-toxic appearing and is in no distress.? Patient is appropriate for outpatient treatment and follow-up. Differential Diagnosis Differential diagnosis: Likely upper respiratory infection, sinusitis, viral infection, influenza, pharyngitis and other (strep pharyngitis, COVID) Medical Records Attestation: I reviewed the patient's medical records. Lab Data Attestation: I reviewed the patient's lab results. Lab results narrative: Influenza A negative, InfluenzaB negative strep screen negarive culture sent, COVID antigen positive Labs: Lab Results 10/09/24 10/09/24 Range/Units 17:06 17:08 POC Influenza A Ag Negative (Negative) POC Influenza B Ag Negative (Negative) POC SARS CoV-2 Ag Positive (Negative) POC Grp A Strep Screen Negative (Negative) reviewed Critical Care Time Critical Care Time Critical Care Time: No Discharge Plan Discharge Clinical Impression: COVID-19 Patient Disposition: Home, Self-Care Condition: Stable Instructions: How to Recover from COVID-19 at Home (ED) Additional Instructions: Increase fluids especially juices and water [id number] cough and cold medicine of your choice for your symptoms Zyrtec Claritin or Inga daily include plain Sudafed in a.m. Steroids as directed--take with food heat to the face 20-30 minutes 4-6 times a day for pain Salt water gargles, throat lozenges or throat sprays as desired Must quarantine for 5 days from start of symptoms COVID-19 DISCHARGE The following recommendations have been made by the CDC and local Health Departments, regarding COVID-19: Those individuals with mild cases of COVID-19 can generally be discontinued from isolation, 5 days AFTER the onset of symptoms AND the resolution of fever for 24hrs (without the use of fever-reducing medications) Those individuals who were asymptomatic, and tested positive, are discontinued from isolation 10 days AFTER their first positive COVID-19 test Those individuals with SEVERE to CRITICAL illness or immunocompromised diseases may require up to 20 days of home isolation or hospitalization Majority of mild to moderate cases can be treated at home, without hospitalization or prescription medications You do not need a negative test result to return to work/school, assuming the above recommendations have been met and you are not symptomatic. At this time, return to work/school notes will not be provided. Guidelines from the local Health Department, CDC, and workplace are expected to be followed. All individuals in the household need to remained quarantined for up to 14 days if asymptomatic OR 10 days after the start of symptoms. Everyone in the home DOES NOT require testing, they are presumed positive and should quarantine as directed. Treating symptoms for mild to moderate cases may include: Tylenol, Flonase/nasal spray, OTC cold/flu medications recommended from your provider or any necessary prescription medications provided at your visit or from your PCP IF YOU TESTED NEGATIVE If you are symptomatic with reason to believe you have COVID-19, there is a high possibility your rapid test may not have detected the virus. Rapid testing is dependent on timing and viral load and may have a false- negative reading You should follow appropriate guidelines regarding quarantine, hand washing, mask wearing, and social distancing You may be sent for PCR testing as an outpatient to the [place] testing site Common Adult Symptoms: Fever/chills Cough Shortness of breath Fatigue, muscle aches Headache Loss of taste/smell Sore throat, congestion, runny nose GI symptoms (nausea, vomiting, diarrhea) Common Pediatric Symptoms Cough Fever GI symptoms (diarrhea, upset stomach, nausea, vomiting) Symptoms may differ in severity however, most cases do not require ho spitalization. WHEN TO SEEK ER EVALUATION/TREATMENT Severe/persistent shortness of breath or difficulty breathing Elevated, persistent fevers without resolution with fever-reducing medications Chest pain Extreme fatigue/lethargy Complications of pre-existing disease Patient Language: Italian Prescriptions: New prednisone 20 mg tablet 20 mg PO BID Qty: 10 0RF No Action bupropion HCl 300 mg tablet extended release 24 hr 300 mg PO DAILY buspirone 15 mg tablet Follow-up/Referrals: Eliezer,Rae Mullins PA [Primary Care Provider] - Stand Alone Forms: Work/School Release IP Time of Disposition: 17:31 Quality Janet Coma Scale Eyes: Open Verbal: Oriented and Alert Motor: Follows Commands Farner Coma Total Score: 15
[2024-10-09 17:10] LABS: EDCOVIDSCREEN Positive (Negative)
[2024-10-09 17:10] LABS: EDINFLUASCREEN Negative (Negative); EDINFLUBSCREEN Negative (Negative); EDSTREPNEGPOS1 Negative (Negative)
== END 2024-10-09 17:40 | disposition home or self-care (01) ==
PROVIDERS: Emergency Provider Registered Nurse; PCP Physician Assistant
DX: U07.1 COVID-19 (principal); F17.290 Nicotine dependence, other tobacco product, uncomplicated
CPT/HCPCS: 87081; 87426; 87804; 87880; 99213; G0463

== ENCOUNTER 2024-12-20 10:33 | Emergency (ER) | payer OTHER, SELFPAY ==
--- NOTE | 2024-12-20 10:38 | ED.URI ---
HPI - URI/Sore Throat General Chief Complaint: Upper Respiratory Infection Stated Complaint: fever/sore throat/painting Time Seen by Provider: 12/20/24 10:34 Source: patient Mode of arrival: ambulatory Limitations: no limitations History of Present Illness HPI Narrative: Rosalba is a 19-year-old female patient presenting to the clinic today with complaints of fever, sore throat, nausea, vomiting, diarrhea, and headache x4 days. She reports she has had exposure to influenza. States that are sore throat has gotten worse. States she is not able to keep any fluids or foods down. Highest fever was 102. Related Data Home Medications ?Medication ?Instructions ?Recorded ?Confirmed ?Last Taken ?Type bupropion HCl 300 mg 24 hr tablet, 300 mg PO DAILY 07/22/24 07/22/24 Unknown History extended release buspirone 15 mg tablet mg 09/23/24 Unknown History Allergies Allergy/AdvReac Type Severity Reaction Status Date / Time metoclopramide (From Reglan) Allergy Unknown FELT ON Verified 12/20/24 10:49 FIRE Review of Systems Review of Systems: Pertinent positives per HPI. Patient denies any rash, visual changes, dizziness, cough, shortness of breath, chest pain, palpitations, constipation, abdominal pain, or any urinary issues. PMFSH Past Medical History Medical History UTI (urinary tract infection) Fracture of right hand Bipolar 1 disorder, mixed Anxiety and depression Ear infection Surgical History Surgical History History of placement of ear tubes History of tonsillectomy and adenoidectomy Social History Social History Smoking status: Current every day smoker Tobacco type: e-cigarettes/vaping Alcohol intake: never Substance use type: does not use Living arrangements: with family Gender identity (if verbalized by the patient): Female Comments At the time of my signature, I reviewed and agree with the nursing past medical, surgical, social, and family history. There is no relevant family history pertinent to the patient complaint. Exam Narrative: General: Well-developed, well nourished, in no apparent distress Head: Normocephalic, atraumatic Eyes: Pupils equally round and reactive to light bilaterally, EOM intact, sclera and conjunctive clear, no discharge, lids normal Ears: TMs intact and clear, ear canals clear, no drainage, grossly hearing normal. Nose: Nares patent, no discharge, no inflammation, no sinus tenderness. Mouth: Oral pharynx red without lesions or masses, good dentition, MMM. Tonsils surgically absent Neck: Supple, trachea midline, no enlargement of anterior or posterior cervical nodes, no thyroid masses or goiter palpable. Cardio: Regular rate and rhythm, s1 and s2 normal, no murmur appreciated. Resp: Clear to auscultation bilaterally, no rhonchi, rales, wheezing or rubs Abdomen: Soft, pliable, bowel sounds present in all quadrants, left upper and lower quadrant tender to palpation, no organomegly, no CVAT tenderness. Course Course Emergency Course: Portions of this record may have been created with voice recognition software. Level of Care: Express Care Visit Vital Signs Vital signs: Vital Signs Temperature 36.6 C 12/20/24 10:39 Pulse Rate 70 12/20/24 10:39 Respiratory Rate 18 12/20/24 10:39 Blood Pressure 128/83 12/20/24 10:39 Pulse Oximetry 100 12/20/24 10:39 Oxygen Delivery Room Air 12/20/24 10:39 Temperature 36.6 C 12/20/24 10:39 Pulse Rate 70 12/20/24 10:39 Respiratory Rate 18 12/20/24 10:39 Blood Pressure 128/83 12/20/24 10:39 Pulse Oximetry 100 12/20/24 10:39 Oxygen Delivery Room Air 12/20/24 10:39 Vital signs reviewed MDM - URI/Sore Throat MDM Narrative Medical decision making narrative: At the time of visit patient is resting comfortably on the exam table. Patient appears to be nontoxic. No distress. Labs: Strep, COVID, and influenza test were obtained and negative in the clinic today. We will send strep for culture.. Urinalysis shows 1+ bacteria and bedside test was performed. We will send urine for culture. Plan: I suspect patient has pharyngitis/viral syndrome/gastroenteritis. Prescription for Zofran was sent to the pharmacy. We will send urine for culture as patient does have 1+ leukocytes however she is not have any urinary symptoms so will not prescribe any antibiotics at this time. Supportive measures were discussed with the patient and they voiced understanding discharge instructions and agrees to treatment plan. Return precautions reviewed Differential Diagnosis Differential diagnosis: Likely upper respiratory infection, otitis media, sinusitis, viral infection, bronchitis, influenza, pharyngitis and other (COVID) Lab Data Labs: Lab Results 12/20/24 Range/Units 10:59 POC Urine Color Pending POC Urine Clarity Pending POC Urine pH Pending POC Ur Specif [place] Pending POC Urine Protein Pending POC Ur Glucose (UA) Pending POC Urine Ketones Pending POC Urine Blood Pending POC Urine Nitrite Pending POC Urine Bilirubin Pending POC Urine Urobilinogen Pending POC U Leukocyte Esteras Pending POC Urine HCG, Qual Pending POC Influenza A Ag Pending POC Influenza B Ag Pending POC SARS CoV-2 Ag Pending POC Grp A Strep Screen Pending Discharge Plan Discharge Clinical Impression: Viral infection, Gastroenteritis Pharyngitis Qualifiers: Pharyngitis/tonsillitis etiology: unspecified etiology Qualified Code(s): J02.9 - Acute pharyngitis, unspecified Patient Disposition: Home Condition: Stable Instructions: Antibiotic Form, Pharyngitis (ED), Gastroenteritis (ED), Viral Syndrome (ED) Additional Instructions: Urinalysis shows 1+ bacteria in your urine. We will send urine for culture. Bedside test was negative COVID, flu, and strep test were all negative. We will send strep for culture. Take prescription medications only as prescribed-Zofran Increase fluids and stay well hydrated Tylenol/motrin for pain/fever Flonase and OTC antihistamines as directed Vicks vapor rub to open sinuses Sinus rinses for congestion Cepacol spray, cough drops, throat lozenges, warm tea with honey/lemon, gargle salt water to soothe throat BRAT diet for diarrhea Clear liquids x 24 hours then advance as tolerated for nausea/vomiting Go to the ED if you develop a worsening in your condition- high fever not controlled by Tylenol or Motrin, dehydration, weakness, lethargy, shortness of breath, or chest pain. Follow up with your PCP in 3-5 days if symptoms persist. Patient Language: Kiswahili Prescriptions: New ondansetron 4 mg tablet,disintegrating 4 mg PO Q6H PRN (Reason: nausea and vomiting) 3 Days Qty: 12 0RF No Action bupropion HCl 300 mg tablet extended release 24 hr 300 mg PO DAILY buspirone 15 mg tablet Follow-up/Referrals: Eliezer,Radha Benoit MD [Primary Care Provider] - Time of Disposition: 11:04 Quality NIHSS Nursing Documentation ED NIHSS nursing documentation: reviewed/agree
[2024-12-20 10:39] VITALS: BP 128/83; PULSE 70; RESP 18; TEMP 36.6; O2SAT 100
--- OUTSIDE RECORDS SUMMARY | 2024-12-20 10:55 | XMS_ITS | Encounter Summary ---
Author Organization [facility] Address [address] [place] [address] Phone Care Team Providers Care Advertising Solicitor Name Role Phone Jabari Bynum MD Primary Care Provider Provider, None Primary Care Provider Radha Muniz MD Primary Care Provider [phone] Encounter Details Date Type Department Care Team (Late st Contact Info) Description 06/30/2021 [facility] Ad[facility] [address] [place] [address] Jabari Bynum MD [address] [place] [address] Acute pharyngitis, unspecified etiology (Primary [...] Sex Assigned at Female 10/25/2023 8:55 PM SOLIDWORKS DRAFTER Legal Sex Female 8:58 PM CDT Gender Identity Female 10/25/2023 8:55 PM SOLIDWORKS DRAFTER Sexual Orientation Not on file documented as of this encounter Plan of Treatment Upcoming Encounters Date Type Department Care Team (Late st Contact Info) Description 03/20/2025 9:30 AM CDT [facility] [address] [place] [id number] Citlalli Talbert January, PAC [address] [place] [address] Discharge Disposition: Discharged to home or Selfcare 03/27/2025 9:40 AM CDT [facility] [address] [place] [address] Citlalli Talbert January, PAC [address] [place] [address] Discharge Disposition: Discharged to home or Selfcare [...] 19 09/04/2022 09/04/2022 09/14/2022 12:1 6 AM SOLIDWORKS DRAFTER COVID - 19 02/27/2024 02/27/2024 02/27/2024 10:2 8 AM CDT documented as of this encounter Care Teams Advertising Solicitor Relationship Specialty Start Date End Date Jabari Bynum MD [address] [place] [address] PCP - General Pediatrics 06/19/18 09/03/22 Provider, None [place] PCP - General 09/04/22 01/01/24 Radha Martins MD [address] [place] [address] PCP - General Family Medicine 01/02/24 documented as of this encounter
--- OUTSIDE RECORDS SUMMARY | 2024-12-20 10:55 | XMS_ITS | Clinical Summary ---
Author Organization [facility] Address [address] [place] [address] Care Team Providers Care Manager Pool Name Role Phone Jabari Bynum MD Primary [...] Encounters Date Type Department Care Team Description 10/28/2024 5:45 PM PUBLIC WORKS COMMISSIONER Therapy [facility] [place] [place] [address] Naz Hammond, JAMAL Pelvic and perineal pain (Primary Dx); Low back pain, unspecified back pain laterality, unspecified chronicity, unspecified whether sciatica present 10/28/2024 Plan of Care Documentation [facility] [place] [id number] from Last 3 Months Surgical History Surgery [...] on file Legal Sex Female 3:14 AM PUBLIC WORKS COMMISSIONER Gender Identity Not on file Sexual Orientation Not on file Obstetrics History Last Filed Vital Signs Vital Sign Reading Time Taken Comments Blood Pressure 132/82 08/12/2024 9:55 AM PUBLIC WORKS COMMISSIONER Pulse 92 08/12/2024 9:55 AM PUBLIC WORKS COMMISSIONER Temperature 36.5 C (97.7 F) 05/21/2024 11:19 AM CDT Respiratory Rate 16 05/21/2024 11:19 AM CDT Oxygen Saturation 100% 08/12/2024 9:55 AM PUBLIC WORKS COMMISSIONER Inhaled Oxygen Concentration - - Weight 58.6 kg (129 lb 3.2 oz) 08/12/2024 9:55 A M PUBLIC WORKS COMMISSIONER Height 154.9 cm (5' 1 ) 05/21/2024 11:19 AM CDT Body Mass Index 24.41 05/21/2024 11:19 AM CDT Plan of Treatment Health Maintenance Due Date Last Done Comments Cervical Cancer Screening 2003 Depression Screening 2003 Hepatitis C Screening 2003 Meningococcal B Vaccine (1 o f 2 - Standard) 2019 Regular Well Visit/Exam 18-64 2021 Influenza Vaccine (#1) 2024 6, 06/25/2010, 06/23/2009, Additional history exists DTaP/Tdap/Td Vaccine (7 - Td or Tdap) 03/30/2026 03/30/2016, 09/03/2007, 06/21/2005, Additional history exists Hepatitis B Screening Completed 05/20/2004 , 2003, 2003, Additional history exists Pneumococcal vaccine <65 Completed 005, 05/23/2004, 05/20/2004, Additional history exists Varicella Vaccines Completed 09/03/2007, 07/27/2004 HPV Vaccines Completed 05/15/2017, 10/0 11/2015, 03/30/2016 Meningococcal Vaccine Completed 05/26/2021 , 03/30/2016, 03/30/2016 Insurance [facility] MEDICAID [facility] Care Teams Manager Pool Relationship Specialty Start Date End Date Jabari Bynum MD PCP - General 07/01/20
--- OUTSIDE RECORDS SUMMARY | 2024-12-20 10:55 | XMS_ITS | Referral Summary ---
Author Organization [facility] Address [address] [place] [address] Care Team Providers Care Councillor [employer] Land [employer] Name Role Phone Jabari Bynum MD Primary Care Provider Encounters Date Type Department Care Team Description 10/28/2024 Plan of Care Documentation [facility] Physical Therapy [facility] [place] [address] 10/28/2024 5:45 PM BATHING SUIT MAKER Therapy [facility] Physical Therapy [facility] [place] [address] Naz Hammond, JAMAL Pelvic and perineal pain [...] for nausea or vomiting 20 tablet 06/16/20 Active Additional Information Patient not taking.Reported on 08/24/2022 methylPREDNISolone (Medrol, Telly,) 4 mg DosepackIndications :Acute nasopharyngitis follow package directions 1 packet 09/05/19 Active Additional Information Patient not taking.Reported on 08/24/[address] (CYMBALTA) 20 mg capsule 07/07/20 21 Active lamoTRIgine (LaMICtal) 25 mg tablet Take 50 mg by mouth daily 10/30/19 22 Active ondansetron (Zofran) 4 mg tabletIndications:G astroenteritis Take 1 tablet (4 mg total) by mouth every 8 (eight) hours as needed for nausea or vomiting 20 tablet 12/28/19 Active Additional Information Patient not taking.Reported on [...] (0.35 mg total) by mouth daily 05/03/20 Active traZODone (DESYREL) 50 mg tablet Take [...] on file Legal Sex Female 3:14 AM BATHING SUIT MAKER Gender Identity Not on file Sexual Orientation Not on file Last Filed Vital Signs Vital Sign Reading Time Taken Comments Blood Pressure 132/82 08/12/2024 9:55 AM BATHING SUIT MAKER Pulse 92 08/12/2024 9:55 AM BATHING SUIT MAKER Temperature 36.5 C (97.7 F) 05/21/2024 11:19 AM CDT Respiratory Rate 16 05/21/2024 11:19 AM CDT Oxygen Saturation 100% 08/12/2024 9:55 AM BATHING SUIT MAKER Inhaled Oxygen Concentration - - Weight 58.6 kg (129 lb 3.2 oz) 08/12/2024 9:55 A M BATHING SUIT MAKER Height 154.9 cm (5' 1 ) 05/21/2024 11:19 AM CDT Body Mass Index 24.41 05/21/2024 11:19 AM CDT Plan of Treatment Not on file Insurance [facility] [id number] [place] [address] [facility] MEDICAID [facility] Care Teams Councillor Aboriginal Land Council Relationship Specialty Start Date End Date Jabari Bynum MD PCP - General 07/01/20
--- OUTSIDE RECORDS SUMMARY | 2024-12-20 10:55 | XMS_ITS | Clinical Summary ---
Author Organization [facility] Address [address] [place] [address] Care Team Providers Care Moisture Meter Reader Name Role Phone Nelly Marcus MD Primary Care Provider [phone] Source Comments [facility],non-owned Affiliates and Associated Physician Practices is amultiple site organization consisting of ambulatory clinics and hospital sitesin [place], [place], [place] and [place]. This disclosure is being madepursuant to the Care Everywhere program and may not contain all information available regarding this patient. Last updated 18.[facility] Allergies No known active allergies Medications * Be aware that medications may not be up to date on this document. Alwaysverify current medications with the patient. sertraline (ZOLOFT) 25 MG tablet Take 25 mg by mouth once daily Active prazosin (MINIPRESS) 2 MG capsule Take 2 mg by mouth once daily 0 Active famotidine (PEPCID) 20 MG tablet Take 1 tablet by mouth 2 times daily,before breakfast and supper 60 tablet 2 0 Active polyethylene glycol 3350 (MIRALAX) powder Take 17 g by mouth once daily as needed for Constipation 500 g 2 0 Active Active Problems Problem Noted Date Diagnosed Date Blood in stool 09/17/2019 GERD (gastroesophageal reflux disease) 0 Abdominal pain, generalized 09/17/2019 Chronic migraine without aur a without status migrainosus, not intractable 04/27/2016 Assessment & Plan (07/27/2016 3:57 PM SENIOR ACCOUNTANT): Assessment: 11 year old girl with chronic [...] drink = 0.6 oz pur e alcohol) Comments No Sex and Gender Information Value Date Recorded Sex Assigned at Not on file Legal Sex Female 2:57 PM CDT Gender Identity Not on file Sexual Orientation Not on file Last Filed Vital Signs Vital Sign Reading Time Taken Comments Blood Pressure 102/78 09/17/2019 9:47 AM SENIOR ACCOUNTANT Pulse 84 08/07/2019 7:48 AM SENIOR ACCOUNTANT per p cp Temperature 36.8 C (98.3 F) 08/07/2019 7:48 AM SENIOR ACCOUNTANT per pcp Respiratory Rate 20 03/28/2016 10:1 4 AM CDT per pcp Oxygen Saturation - - Inhaled Oxygen Concentration - - Weight 80.7 kg (177 lb 14.6 oz) 09/17/2019 9:47 AM SENIOR ACCOUNTANT Height 155.5 cm (5' 1.22 ) 09/17/2019 9:47 AM CS T Body Mass Index 33.37 09/17/2019 9:47 AM SENIOR ACCOUNTANT Plan of Treatment Health Maintenance Due Date Last Done Comments HIV SCREENING 2018 HPV VACCINE (1 - 3-dose series) 2018 MENINGOCOCCAL (Group B) VACC INE SHARED DECISION-MAKING (1 of 2 - Standard) 2019 CHLAMYDIA/GONORRHEA SCREENING 10/05/2019 10/05/2018 HEPATITIS C SCREENING 07/12/2021 DTAP/TDAP/TD VACCINES (1 - Tdap) 2022 HEPATITIS B VACCINE (1 of 3 - 19+ 3-dose series) 2022 COVID-19 VACCINE (1 - 2023-2 5 season) 2024 DEPRESSION SCREENING 08/28/2024 INFLUENZA VACCINE (Season Ended) 2025 ZOSTER VACCINE (1 of 2) 2053 HIB VACCINE Aged Out No longer eligi ble based on patient's age to complete this topic MENINGOCOCCAL GROUPS A/C/Y/W VACCINE Aged Out No longer eligible b ased on patient's age to complete this topic PNEUMOCOCCAL VACCINE Aged Out No long er eligible based on patient's age to complete this topic Insurance [address] [facility] Care Teams Moisture Meter Reader Relationship Specialty [place] [address] [place] [id number] PCP - General 10/15/19
--- OUTSIDE RECORDS SUMMARY | 2024-12-20 10:55 | XMS_ITS | Clinical Summary ---
Author Organization [facility] Address [address] [place] [address] Phone Care Team Providers Care Visor Installer Name Role Phone Radha Martins MD Primary Care Provider [phone] Allergies Active Allergy Reactions Criticality Noted Date Comments Metoclopramide Anxiety 09/04/2022 Medications buPROPion (Wellbutrin XL) 150 MG XL tablet Take 450 mg by mouth every morning. Active prazosin (MINIPRESS) 2 MG Capsule Take 2 mg by mouth nightly. Active busPIRone (BUSPAR) 15 MG Tablet Take 15 mg by mouth 2 times daily. 5 Active cyclobenzaprin e (FLEXERIL) 10 MG Tablet Take 10 mg by mouth 3 times daily as needed. 4 Active traZODone (DESYREL) 50 MG Tablet Take 50 mg by mouth nightly. Active amoxicillin (AMOXIL) 500 MG Capsule Take 1,000 mg by mouth 2 times daily. 5 Active aspirin EC 81 MG Tablet Delayed ResponseIndica tions:thromboc ytosis Take 81 mg by mouth daily. Indications: thrombocytosis Active Active Problems Problem Noted Date Diagnosed Date Factor 5 Leiden mutation, heterozygous 4 Thrombocytosis 02/21/2024 Family history of blood coagulation disorder Elevated ferritin 02/21/2024 Encounters Date Type Department Care Team Description 09/27/2024 9:15 AM DRESS FINISHER [facility] [address] [place] [address] Citlalli Talbert January, PAC Thrombocytosis (Primary Dx); Factor 5 Leiden mutation, heterozygous (HCC); Elevated ferritin Discharge Disposition: Discharged to home or Selfcare 09/27/2024 Travel from Last 3 Months Social History [...] Sex Assigned at Female 10/25/2023 8:55 PM DRESS FINISHER Legal Sex Female 8:58 PM CDT Gender Identity Female 10/25/2023 8:55 PM DRESS FINISHER Sexual Orientation Not on file Last Filed Vital Signs Vital Sign Reading Time Taken Comments Blood Pressure 108/73 09/27/2024 9:25 AM DRESS FINISHER Pulse 81 09/27/2024 9:25 AM DRESS FINISHER Temperature 36.8 C (98.2 F) 09/27/2024 9:25 AM DRESS FINISHER Respiratory Rate 20 03/20/2024 2:17 PM CDT Oxygen Saturation 100% 09/27/2024 9:25 AM DRESS FINISHER Inhaled Oxygen Concentration - - Weight 58.2 kg (128 lb 4.8 oz) 09/27/2024 9:25 A M DRESS FINISHER Height 152.4 cm (5') 09/27/2024 9:25 AM DRESS FINISHER Body Mass Index 25.06 09/27/2024 9:25 AM DRESS FINISHER Plan of Treatment Upcoming Encounters Date Type Department Care Team (Late st Contact Info) Description 03/20/2025 9:30 AM CDT Lab [facility] On[facility] [address] [place] [address] Citlalli Talbert January, PAC [address] [place] [address] Discharge Disposition: Discharged to home or Selfcare 03/27/2025 9:40 AM CDT Office Visit [facility] [address] [place] [phone] Citlalli Talbert Kristyn, PAC [address] [place] [address] Discharge Disposition: Discharged to home or Selfcare [...] age to complete this topic Insurance MEDICAID [facility] MEDICAID [facility] MEDICA[facility] Care Teams Visor Installer Relationship Specialty Start Date End Date Radha Martins MD [address] [place] [address] PCP - General Family Medicine 01/02/24
--- OUTSIDE RECORDS SUMMARY | 2024-12-20 10:55 | XMS_ITS | Encounter Summary ---
Author Organization [facility] Address [address] [place] [address] Care Team Providers Care Allergy Physician Name Role Phone Jabari Bynum MD Primary Care Provider Encounter Details Date Type Department Care Team (Late st Contact Info) Description 08/12/2024 Documentation [facility] [address] [place] [address] Donald Davies NP [address] [address] Social History Tobacco Use Types Packs/Day Years [...] on file Legal Sex Female 3:14 AM PAYMENT REP Gender Identity Not on file Sexual Orientation Not on file documented as of this encounter Plan of Treatment Not on file documented as of this encounter Visit Diagnoses Not on filedocumented in this encounter Care Teams Allergy Physician Relationship Specialty Start Date End Date Jabari Bynum MD PCP - General 07/01/20 documented as of this encounter
[2024-12-20 11:05] LABS: BEDSIDEPREGUCG Negative (Negative); EDCOVIDSCREEN Negative (Negative); EDINFLUASCREEN Negative (Negative); EDINFLUBSCREEN Negative (Negative); EDSTREPNEGPOS1 Negative (Negative); EDUAAPPEAR Clear; EDUABILI Negative (Negative); EDUABLOOD Negative (Negative); EDUACOLOR1 Yellow; EDUAGLUCOSE Negative (Negative); EDUAKETONE Negative (Negative); EDUALEUKO 1+ (Negative); EDUANITRATE Negative (Negative); EDUAPH 7.5; EDUAPROTEIN Negative (Negative); EDUAUROBILI 0.2
== END 2024-12-20 11:08 | disposition home or self-care (01) ==
PROVIDERS: Emergency Provider Nurse Practitioner Family; PCP Family Medicine
DX: A08.4 Viral intestinal infection, unspecified (principal); F17.290 Nicotine dependence, other tobacco product, uncomplicated; Z20.822 Contact with and (suspected) exposure to COVID-19
CPT/HCPCS: 81003; 81025; 87081; 87086; 87426; 87804; 87880; 99213; G0463

== ENCOUNTER 2025-05-02 16:57 | Emergency (ER) | payer OTHER, SELFPAY ==
--- OUTSIDE RECORDS SUMMARY | 2025-05-02 17:01 | XMS_ITS | Encounter Summary ---
Author Organization [facility] Address [address] [place] [address] Phone Care Team Providers Care Nitro Worker Name Role Phone Jabari Bynum MD Primary Care Provider Provider, None Primary Care Provider Radha Muniz MD Primary Care Provider [phone] Encounter Details Date Type Department Care Team (Late st Contact Info) Description 06/30/2021 [facility] Ad[facility] [address] [place] [address] Jabari Bynum MD [address] [place] [address] Acute pharyngitis, unspecified etiology (Primary [...] Sex Assigned at Female 10/25/2023 8:55 PM COOK SAUCE Legal Sex Female 8:58 PM CDT Gender Identity Female 10/25/2023 8:55 PM COOK SAUCE Sexual Orientation Not on file documented as of this encounter Plan of Treatment Scheduled Orders Name Type Priority Associated Diagnoses Orde r Schedule SARS CORONOVIRUS-2 IGG Lab Routine Acute pharyngitis, unspecified etiology Expected: 06/30/2021, Expires: 06/30/2022 documented as of this encounter Visit Diagnoses Diagnosis Acute pharyngitis, unspecified etiology- Primary documented in this encounter Additional Health Concerns Infection Onset Date Last Indicated Resolved Time COVID - 19 09/04/2022 09/04/2022 09/14/2022 12:1 6 AM COOK SAUCE COVID - 19 02/27/2024 02/27/2024 02/27/2024 10:2 8 AM CDT documented as of this encounter Care Teams Nitro Worker Relationship Specialty Start Date End Date Jabari Bynum MD PCP - General Pediatrics 06/19/18 09/03/22 Provider, None MS PCP - General 09/04/22 01/01/24 Radha Martins MD [address] [place] [id number] PCP - General Family Medicine 01/02/24 documented as of this encounter
--- OUTSIDE RECORDS SUMMARY | 2025-05-02 17:01 | XMS_ITS | Encounter Summary ---
Author Organization [facility] Address [address] [place] [address] Care Team Providers Care Campaign Marketing Specialist Name Role Phone Radha Martins MD Primary Care Provider [phone] Encounter Details Date Type Department Care Team (Late st Contact Info) Description 04/15/2025 Results Follow-Up [facility] [address] [place] [address] Stefania Munoz, DO [address] [place] [address] Varicella Zoster IgG antibody Blood, Urine culture Urine, clean voided, Type and screen, Additional followed-up results: 9 Social History Tobacco Use Types Packs/Day Years [...] money to get more. Never true 08/12/2024 Personal Safety Answer Date Recorded Have you ever been in or are you currently in a harmful physical or emotional relationship or is someone making you feel afraid or unsafe? Denies 04/02/2025 Estimated Date of Delivery Comme nts Yes 12/01/2025 Based on Ultraso und Sex and Gender Information Value Date Recorded Sex Assigned at Not on file Legal Sex Female 3:14 AM IMPROVEMENT NURSE Gender Identity Not on file Sexual Orientation Not on file Occupation Industry Job Start Date Job End Date Not on file Not on file Not on file Not on file documented as of this encounter Plan of Treatment Not on file documented as of this encounter Visit Diagnoses Not on filedocumented in this encounter Care Teams Campaign Marketing Specialist Relationship Specialty Start Date End Date Radha Martins MD [address] [place], [place] [id number] PCP - General Obstetrics and Gynecology 04/02/25 documented as of this encounter
[2025-05-02 17:02] VITALS: BP 147/78; PULSE 103; RESP 16; TEMP 36.1; O2SAT 100
--- OUTSIDE RECORDS SUMMARY | 2025-05-02 17:02 | XMS_ITS | Clinical Summary ---
Author Organization [facility] Address [address] [facility] [place] [address] Care Team Providers Care Environmental Projects Advisor Name Role Phone Nelly Marcus MD Primary Care Provider [phone] Source Comments [facility],non-owned Affiliates and Associated Physician Practices is amultiple site organization consisting of ambulatory clinics and hospital sitesin [place], [place], [place] and [place]. This disclosure is being madepursuant to the Care Everywhere program and may not contain all information available regarding this patient. Last updated 18.[facility] mig33 Allergies No known active allergies Medications * [...] 04/27/2016 Assessment & Plan (07/27/2016 3:57 PM SPORTS RECRUITER): Assessment: 11 year old girl with chronic [...] Comments Blood Pressure 102/78 09/17/2019 9:47 AM SPORTS RECRUITER Pulse 84 08/07/2019 7:48 AM SPORTS RECRUITER per p cp Temperature 36.8 C (98.3 F) 08/07/2019 7:48 AM SPORTS RECRUITER per pcp Respiratory Rate 20 03/28/2016 10:1 4 AM CDT per pcp Oxygen Saturation - - Inhaled Oxygen Concentration - - Weight 80.7 kg (177 lb 14.6 oz) 09/17/2019 9:47 AM SPORTS RECRUITER Height 155.5 cm (5' 1.22) 09/17/2019 9:47 AM CS T Body Mass Index 33.37 09/17/2019 9:47 AM SPORTS RECRUITER Plan of Treatment Health Maintenance Due Date Last Done Comments HIV SCREENING 2018 HPV VACCINE (1 - 3-dose series) 2018 CHLAMYDIA/GONORRHEA SCREENING 2019 MENINGOCOCCAL (Group B) VACC INE SHARED DECISION-MAKING (1 of 2 - Standard) 2019 HEPATITIS C SCREENING 07/12/2021 DTAP/TDAP/TD VACCINES (1 - Tdap) 2022 HEPATITIS B VACCINE (1 of 3 - 19+ 3-dose series) 2022 DEPRESSION SCREENING 08/28/2024 COVID-19 VACCINE (1 - 2023-2 5 season) 2025 INFLUENZA VACCINE (#1) 2025 ZOSTER VACCINE (1 of 2) 2053 HIB VACCINE Aged Out No longer eligi ble based on patient's age to complete this topic MENINGOCOCCAL GROUPS A/C/Y/W VACCINE Aged Out No longer eligible b ased on patient's age to complete this topic PNEUMOCOCCAL VACCINE Aged Out No long er eligible based on patient's age to complete this topic Insurance [address] [facility] Care Teams Environmental Projects Advisor Relationship Specialty [place] [address] [place] [id number] PCP - General 10/15/19
--- OUTSIDE RECORDS SUMMARY | 2025-05-02 17:02 | XMS_ITS | Clinical Summary ---
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 Role Phone Radha Martins MD Primary Care Provider [phone] Allergies Active Allergy Reactions Criticality Noted Date Comments Metoclopramide Nausea & Vomiting,Ot her (See comments),Anxiety Low 09/04/2022 Generalized burning sensation Medications citalopram (CeleXA) 10 [...] total) by mouth nightly 04/25/20 24 Active pyridoxine (VITAMIN B6) 25 mg tablet Take 1 tablet (25 mg total) by mouth daily 30 tablet 11 04/10/20 25 026 Active doxylamine (UNISOM) 25 mg tablet Take 1 tablet (25 mg total) by mouth nightly as needed for sleep 30 tablet 11 04/10/20 25 Active promethazine (PHENERGAN) 25 mg tablet Take 1 tablet (25 mg total) by mouth every 6 (six) hours as needed for nausea or vomiting 30 tablet 04/22/20 25 Active prochlorperazine (COMPAZINE) 10 mg tablet Take 1 tablet (10 mg total) by mouth every 6 (six) hours as needed for nausea or vomiting 30 tablet 1 04/25/20 25 Active Active Problems Problem Noted Date Diagnosed Date Encounter for supervision of normal in first trimester 04/10/2025 Overview (04/10/2025): Dated by 6w3d PNL: ordered today GC/CT: collected today UCx: ordered today Pap: collected today Genetics: discussed Engages in nicotine containing substance vaping 04/10/2025 Overview (04/10/2025): S/p counseling. Cessation encouraged. Marijuana use 04/10/2025 Overview (04/10/2025): S/p counseling. Cessation encouraged. Heterozygous factor V Leiden mutation 08/12/2024 Overview (04/10/2025): Pt has never had a VTE but her mother has. Per ACOG guidelines, can either do no anticoagulation or prophylactic anticoagulation antepartum and either prophylactic or intermediate dose . The patient states her sister did nothing during and prophylactic after so elects to do that. Will have her do LD ASA daily though. Anxiety disorder 02/13/2024 Overview (04/10/2025): Previously on bupropion but discontinued when she became . Discussed there are safe medications in if she feels she needs something. She declines anything right now. Depression 02/13/2024 Chronic migraine without aur a without status [...] this over the phone if he desires. 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 04/10/2025 Dysmenorrhea 02/12/2024 04/10/2025 Abdominal pain, lower 06/16/20212024 Abdominal pain, periumbilical 06/16/2021 04/10/2025 Diarrhea 06/16/2021 04/10/2025 Nausea and vomiting 06/16/2021 04/10/20 GERD (gastroesophageal reflux disease) 09/17/2019 04/10/2025 Hematochezia 12/28/2016 04/10/2025 Encounters Date Type Department Care Team Description 04/24/2025 Telephone [facility] [address] [place] [address] Stefania Munoz DO Patient issue/concern 04/22/2025 7:03 AM CDT - 04/22/2025 1:33 PM CDT Emergency [facility] Emergency Department [address] [place] [address] Abdominal pain, generalized (Primary Dx); Nausea and vomiting, unspecified vomiting type Discharge Disposition: Discharge to home or self care 04/15/2025 Results Follow-Up [address] [address] Stefania Munoz DO Varicella Zoster IgG antibody Blood, Urine culture Urine, clean voided, Type and screen, Additional followed-up results: 9 04/11/2025 9:50 AM CDT Lab [facility] [address] [place] [address] Less than 8 weeks gestation of ; Encounter for supervision of normal first in first trimester 04/10/2025 12:04 PM CDT - 04/10/2025 11:59 PM CDT Hospital Encounter [facility] [address] [place] [address] Screening for malignant neoplasm of cervix; Screen for sexually transmitted diseases Discharge Disposition: Discharge to home or self care 04/10/2025 11:20 AM CDT Office Visit [facility] [address] [place] [address] Stefania Munoz, Supervision of normal first , antepartum (Primary Dx); Screen for sexually transmitted diseases; Screening for malignant neoplasm of cervix 04/10/2025 8:45 AM CDT Ancillary Procedure [facility] 1 [facility] [address] [place] [address] Encounter to determine viability of , single or unspecified fetus 04/10/2025 [facility] [address] [facility] [address] [place] [address] Stefania Munoz DO Encounter for supervision of normal first in first trimester (Primary Dx); Less than 8 weeks gestation of 04/07/2025 Telephone [facility] [address] [facility] [address] [place] [address] Stefania Munoz, Appointment Reminder Call 04/03/2025 11:30 AM CDT Lab [facility] 1 [facility] [address] [place] [address] Threatened 04/02/2025 7:51 AM CDT - 04/02/2025 11:17 AM CDT Emergency [facility] Emergency Department [address] [place] [address] Vaginal bleeding affecting early (Primary Dx) Discharge Disposition: Discharge to home or self care 04/02/2025 Telephone [facility] [address] [facility] [address] [place] [address] Stefania Munoz DO Patient issue/concern 03/24/2025 Orders Only [facility] [address] [place] [address] Stefania Munoz, Encounter to determine viability of , single or unspecified fetus (Primary Dx) from Last 3 Months Surgical History Surgery [...] making you feel afraid or unsafe? 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 Gender Identity Not on file Sexual Orientation Not on file Occupation Industry Job Start Date Job End Date Not on file Not on file Not on file Not on file Obstetrics History Para Term AB IAB SAB Ectopic Multiple Livin g Live Births 1 0 0 0 0 0 0 0 0 0 0 Date Outcome GA Total Labor Labor/2nd/3rd Weight Sex Type Anes PTL Lia A1 A5 Name Clin Current Summary Episode Dates Number of Fetuses Estimated Date of Delivery 04/10/2025 - Present (05/02/2025) 12/01/2025 (set by Me she Munoz DO on 04/10/2025 based on Ultrasound on 04/10/2025) Dating Summary Based On JACOB GA Diff Last Menstrual Period on 01/09/2025 (Exact Date) 10/16/2025 +6w4d Ultrasound on 04/10/2025 12/01/2025 Working GA:6w3d Alternate JACOB Entry 12/01/2025 Same Comment:Date entered prior t o episode creation Vitals Pregravid Weight Height TWG (As of 05/02/2025) Pregrav id BMI 154.9 cm (5' 1) Notes Progress Notes - Office Visi t - 04/10/2025 - GA:6w3d 04/10/2025 - 6w3d - Bret Munoz DO Initial OB Visit Subjective : Rosalba Li is a 19 y.o., at 6w3d, based on 1st trimester U/S, who presents for initial visit. She has been struggling with nausea/vomiting so far this . She also has had spotting for which she went to the ED on 04/02. They did an US that showed an intrauterine gestational sac but no pole. She states she is only having a light brown discharge now. Menstrual History: Patient's last menstrual period was 01/09/2025 (exact date). 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 Review of Systems HENT: Positive for nosebleeds. Respiratory: Positive for shortness of breath. Cardiovascular: Positive for leg swelling. Gastrointestinal: Positive for abdominal pain, constipation, diarrhea, nausea and vomiting. Genitourinary: Positive for frequency. Musculoskeletal: Positive for back pain. Neurological: Positive for dizziness and headaches. Hematological: Bruises/bleeds easily. Psychiatric/Behavioral: The patient is nervous/anxious. Insomnia Objective : BP 122/60 Ht 154.9 cm (5' 1) Wt 141 lb (64 kg) LMP 01/09/2025 (Exact Date) BMI 26.64 kg/m Physical OB Exam: Last filed by Stefania Munoz DO on 04/10/2025 1:44 PM General Physical Exam HEENT: normal Heart: normal Skin: normal Lungs: normal Extremities: normal Neurological: normal Abdomen: normal Pelvic Exam Vulva: normal Vagina: normal Cervix: normal Adnexa: normal Rectum: normal Spines: average Subpubic Arch: normal Assessment: Patient is a 19 y.o., at 6w3d, with a cronin confirmed on U/S today. Problem list reviewed and updated: Problems (from 04/10/25 to present) Problem Noted Diagnosed Resolved Encounter for supervision of normal in first trimester 04/10/2025 by Stefania Munoz DO No Overview Signed 04/10/2025 1:41 PM by Stefania Munoz DO Dated by 6w3d PNL: ordered today GC/CT: collected today UCx: ordered today Pap: collected today Genetics: discussed Engages in nicotine containing substance vaping 04/10/2025 by Stefania Munoz DO No Overview Signed 04/10/2025 1:44 PM by Stefania Munoz DO S/p counseling. Cessation encouraged. Marijuana use 04/10/2025 by Stefania Munoz DO No Overview Signed 04/10/2025 1:44 PM by Stefania Munoz DO S/p counseling. Cessation encouraged. Heterozygous factor V Leiden mutation 08/12/2024 by Donald Davies, [place] No Overview Signed 04/10/2025 1:42 PM by Stefania Munoz DO Pt has never had a VTE but her mother has. Per ACOG guidelines, can either do no anticoagulation or prophylactic anticoagulation antepartum and either prophylactic or intermediate dose . The patient states her sister did nothing during and prophylactic after so elects to do that. Will have her do LD ASA daily though. Anxiety disorder 02/13/2024 by Donald Davies NP No Overview Signed 04/10/2025 1:43 PM by Stefania Munoz DO Previously on bupropion but discontinued when she became . Discussed there are safe medications in if she feels she needs something. She declines anything right now. Plan: vitamin with DHA discussed Labs ordered Discussed genetic testing - patient to check with insurance on NIPT Additional concerns: N/V - B6/Unisom sent to pharmacy Follow up in 4 weeks. Stefania Munoz DO 04/10/2025 Last Filed Vital Signs Vital Sign Reading Time Taken Comments Blood Pressure 137/93 04/22/2025 12:45 PM CDT Pulse 81 04/22/2025 12:45 PM CDT Temperature 36.7 C (98 F) 04/22/2025 7:02 AM CDT Respiratory Rate 18 04/22/2025 7:02 AM CDT Oxygen Saturation 99% 04/22/2025 12:45 PM CDT Inhaled Oxygen Concentration - - Weight 63.5 kg (140 lb) 04/22/2025 7:02 AM CDT Height 154.9 cm (5' 1) 04/10/2025 11:30 AM CDT Body Mass Index 26.45 04/10/2025 11:30 AM CDT Plan of Treatment Health Maintenance Due Date Last Done Comments Depression Screening 2003 Meningococcal B Vaccine (1 o f 2 - Standard) 2019 Regular Well Visit/Exam 18-64 2021 Influenza Vaccine (#1) 2025 6, 06/25/2010, 06/23/2009, Additional history exists DTaP/Tdap/Td Vaccine (7 - Td or Tdap) 03/30/2026 03/30/2016, 09/03/2007, 06/21/2005, Additional history exists Cervical Cancer Screening 04/10/2026 04/10/2025 Chlamydia and Gonorrhea (GC/ CT) Screening 04/10/2026 04/10/2025, 02/12/2024, 10/26/2017 Hepatitis B Screening Completed 05/20/2004 , 2003, 2003, Additional history exists Pneumococcal vaccine <65 Completed 005, 05/23/2004, 05/20/2004, Additional history exists Varicella Vaccines Completed 09/03/2007, 07/27/2004 HPV Vaccines Completed 05/15/2017, 11/2015, 03/30/2016 Meningococcal Vaccine Completed 05/26/2021 , 03/30/2016, 03/30/2016 Hepatitis C Screening Completed 04/11/2025 Procedures Procedure Name Priority Date/Time Associated Diagnosis Comments URINALYSIS AND REFLEX TO MICROSCOPIC AND CULTURE STAT 04/22/2025 11:19 AM CDT US GALLBLADDER ED 04/22/2025 11:03 AM CDT EGFR STAT 04/22/2025 7:41 AM CDT HCG, BLOOD, QUANTITATIVE STAT 04/22/2025 7:41 AM CDT DIFFERENTIAL AUTO STAT 04/22/2025 7:4 1 AM CDT LIPASE STAT 04/22/2025 7:41 AM CDT COMPREHENSIVE METABOLIC PANEL STAT 04/22/2025 7:41 AM CDT CBC WITH AUTO DIFFERENTIAL STAT 04/22/2025 7:41 AM CDT BLOOD MISC TO [place] Routine 04/11/2025 12 :25 PM CDT DIFFERENTIAL AUTO Routine 04/11/2025 9:4 6 AM CDT Less than 8 weeks gestation of Encounter for supervision of normal first in first trimester CBC WITH AUTO DIFFERENTIAL Routine 04/11/2025 9:46 AM CDT Less than 8 weeks gestation of Encounter for supervision of normal first in first trimester DRUGS OF ABUSE SCREEN, URINE WITHOUT CONFIRMATION Routine 04/11/2025 9:46 AM CDT Less than 8 weeks gestation of Encounter for supervision of normal first in first trimester TYPE AND SCREEN Routine 04/11/2025 9:46 AM CDT Less than 8 weeks gestation of Encounter for supervision of normal first in first trimester HEPATITIS B SURFACE ANTIGEN Routine 04/11/2025 9:46 AM CDT Less than 8 weeks gestation of Encounter for supervision of normal first in first trimester HEPATITIS C ANTIBODY Routine 04/11/2025 9:46 AM CDT Less than 8 weeks gestation of Encounter for supervision of normal first in first trimester HIV 1/2 ANTIBODY PLUS P24 ANTIGEN Routine 04/11/2025 9:46 AM CDT Less than 8 weeks gestation of Encounter for supervision of normal first in first trimester RPR Routine 04/11/2025 9:46 AM CDT Less than 8 weeks gestation of Encounter for supervision of normal first in first trimester RUBELLA IGG Routine 04/11/2025 9:46 AM CDT Less than 8 weeks gestation of Encounter for supervision of normal first in first trimester URINE CULTURE Routine 04/11/2025 9:46 AM CDT Less than 8 weeks gestation of Encounter for supervision of normal first in first trimester VARICELLA ZOSTER ANTIBODY, IGG Routine 04/11/2025 9:46 AM CDT Less than 8 weeks gestation of Encounter for supervision of normal first in first trimester PAP WITH REFLEX TO HIGH RISK HPV Routine 04/10/2025 12:04 PM CDT Screening for malignant neoplasm of cervix THINPREP PROCESSING (MOLECULAR COMPONENT) Routine 04/10/2025 12:04 PM CDT Screening for malignant neoplasm of cervix TRICHOMONAS VAGINALIS PCR Routine 04/10/2025 12:04 PM CDT Screen for sexually transmitted diseases N. GONORRHOEAE/C. TRACHOMATIS AMPLIFICATION Routine 04/10/2025 12:04 PM CDT Screen for sexually transmitted diseases US OB UNDER 14 WEEKS W ENDOVAGINAL Schedule Routine, Read Routine (OP Routine) 04/10/2025 9:08 AM CDT Encounter to determine viability of , single or unspecified fetus HCG, BLOOD, QUANTITATIVE Routine 04/03/2025 11:23 AM CDT Threatened US OB UNDER 14 WEEKS W ENDOVAGINAL ED 04/02/2025 10:11 AM CDT ANTIBODY SCREEN STAT 04/02/2025 8:07 AM CDT ABO/RH STAT 04/02/2025 8:07 AM CDT EGFR STAT 04/02/2025 8:07 AM CDT TYPE AND SCREEN STAT 04/02/2025 8:07 AM CDT DIFFERENTIAL AUTO STAT 04/02/2025 8:0 7 AM CDT HCG, BLOOD, QUANTITATIVE STAT 04/02/2025 8:07 AM CDT COMPREHENSIVE METABOLIC PANEL STAT 04/02/2025 8:07 AM CDT CBC WITH AUTO DIFFERENTIAL STAT 04/02/2025 8:07 AM CDT from Last 3 Months Results * (ABNORMAL) Urinalysis reflex to microscopic and culture Urine (04/22/2025 11:19 AM CDT) Color, ur Straw Yellow Clarity, ur Clear Clear [facility] ([place]) Specific gravity, ur 1.010 1.003 - 1.030 [facility] ([place]) pH, urine 7.0 [facility] ([place]) Comment: Interpretive Data U rine pH is affected by diet, medications, systemic acid-base disturbances, and renal tubular function. pH may affect urinary stone formation. For example, urine pH below 6.0 may help reduce the tendency for calcium phosphate stones and pH greater than 6.0 may reduce the tendency for uric acid stone formation. Source: [facility] Current Interpretive Data was last revised on 2017 Protein, ur ql Negative Negative [facility] ([place]) Glucose, ur ql Negative Negative [facility] ([place]) Ketones, ur 1+(A) Negative [facility] ([place]) Bilirubin, ur Negative Negative [facility] ([place]) Blood, ur Negative Negative [facility] ([place]) Urobilinogen, ur <2.0 <2.0 mg/dL [facility] ([place]) Nitrite, ur Negative Negative [facility] ([place]) Leukocyte esterase, ur Negative Negative [facility] ([place]) UA reflex comment Reflex conditions for microscopic UA and culture not met. [facility] ([place]) Urine 04/22/2025 11:1 9 AM CDT 04/22/2025 11:22 AM CDT us Az Yung MD LAB MICROBIOLOGY - GENERAL O RDERABLES Final Result [facility] ([place]) 1 [facility] Department [place] [address] * US Gallbladder (04/22/2025 11:03 AM CDT) Anatomical Region Laterality Modality Abdomen N/A Ultrasound 04/22/2025 12:4 1 PM CDT Narrative 04/22/2025 12:45 PM CDT EXAM DESCRIPTION: US GALLBLADDER REASON FOR STUDY: Right upper quadrant pain TECHNIQUE: Ultrasound of the right upper quadrant of the abdomen was performed with grayscale and color doppler. COMPARISON: None FINDINGS: PANCREAS: Visualized portions of the pancreas are within normal limits. Portions of the pancreatic body and tail are obscured due to bowel gas. LIVER: The liver appears normal in echotexture and echogenicity. No focal lesion identified. The main portal vein is patent with antegrade flow. GALLBLADDER: The gallbladder appears unremarkable. No cholelithiasis. No gallbladder wall thickening or pericholecystic fluid. No positive sonographic Partridge sign reported. BILIARY: There is no intrahepatic or extrahepatic biliary ductal dilatation. Common bile duct measures 0.2 cm in diameter. RIGHT KIDNEY: Normal size. Normal echogenicity. No solid mass or cyst. No hydronephrosis. Measures 11.1 cm in length. OTHER: No other significant findings. IMPRESSION: 1. No acute abnormality. THIS IS AN ELECTRONICALLY VERIFIED FINAL REPORT 04/22/2025 12:45 PM - Electronically signed by Feliberto POZO: NOHELIA Report ID: [id number] Reading Location: [id number] Procedure Note Feliberto Guidry MD - 04/22/2025 EXAM DESCRIPTION: US GALLBLADDER REASON FOR STUDY: Right upper quadrant pain TECHNIQUE: Ultrasound of the right upper quadrant of the abdomen wasperformed with grayscale and color doppler. COMPARISON: None FINDINGS: PANCREAS: Visualized portions of the pancreas are within normal limits. Portions of the pancreatic body and tail are obscured due to bowel gas. LIVER: The liver appears normal in echotexture and echogenicity. Nofocal lesion identified. The main portal vein is patent with antegrade flow. GALLBLADDER: The gallbladder appears unremarkable. No cholelithiasis.No gallbladder wall thickening or pericholecystic fluid. No positivesonographic Partridge sign reported. BILIARY: There is no intrahepatic or extrahepatic biliary ductaldilatation. Common bile duct measures 0.2 cm in diameter. RIGHT KIDNEY: Normal size. Normal echogenicity. No solid mass or cyst.No hydronephrosis. Measures 11.1 cm in length. OTHER: No other significant findings. IMPRESSION: 1. No acute abnormality. THIS IS AN ELECTRONICALLY VERIFIED FINAL REPORT 04/22/2025 12:45 PM - Electronically signed by Feliberto POZO: NOHELIA Report ID: [id number] Reading Location: [id number] [facility] IM US PROCEDURE S Final Result * eGFR (04/22/2025 7:41 AM CDT) eGFR >90 >=60 mL/min/1. 73 m2 Comment: Interpretive Data Reference Interval Normal >/= 90 mL/min/1.73m2 Mildly decreased* 60 - 89 mL/min/1.73m2 Mildly to moderately decreased 45 - 59 mL/min/1.73m2 Moderately to severely decreased 30 - 44 mL/min/1.73m2 Severely decreased 15 - 29 mL/min/1.73m2 Kidney Failure < 15 mL/min/1.73m2 *Relative to young adult level Estimated glomerular filtration rate is determined by the 2020 CKD-EPI equation recommended by the National Kidney Foundation (A Unifying Approach to GFR Estimation: Recommendations of the NKF-ASK Task Force on Reassessing the Inclusion of Race in Diagnosing Kidney Disease, JASN 2020). The CKD-EPI equation should not be used for patients with unstable renal function and has not been validated in children and those over 70. Current interpretive data was last reviewed 2021. Blood 04/22/2025 7:41 AM CDT 04/22/2025 7:49 AM CDT us Az Yung MD LAB BLOOD ORDERABLES Final R esult [facility] ([place]) 1 [facility] Department [place] [address] * (ABNORMAL) Differential, auto (04/22/2025 7:41 AM CDT) Neutrophil abs 7.02(H) 1.50 - 6.50 K/cumm Imm gran abs 0.03 0.00 - 0.10 K/cumm [facility] ([place]) Lymphocyte abs 1.56 0.80 - 3.30 K/cumm [facility] ([place]) Monocyte abs 0.63 0.20 - 0.80 K/cumm [facility] ([place]) Eosinophil abs 0.11 0.00 - 0.50 K/cumm [facility] ([place]) Basophil abs 0.05 0.00 - 0.10 K/cumm [facility] ([place]) Neutrophil pct 74.7 % [facility] ([place]) Comment: Interpretive Data Percent cell count reference ranges are not reported, since discordance with absolute values may lead to misinterpretation of CBC data. Current Interpretive Data was last revised on 2017. Imm gran pct 0.3 % [facility] ([place]) Comment: Interpretive Data Percent cell count reference ranges are not reported, since discordance with absolute values may lead to misinterpretation of CBC data. Current Interpretive Data was last revised on 2017. Lymphocyte pct 16.6 % [facility] ([place]) Comment: Interpretive Data Percent cell count reference ranges are not reported, since discordance with absolute values may lead to misinterpretation of CBC data. Current Interpretive Data was last revised on 2017. Monocyte pct 6.7 % [facility] ([place]) Comment: Interpretive Data Percent cell count reference ranges are not reported, since discordance with absolute values may lead to misinterpretation of CBC data. Current Interpretive Data was last revised on 2017. Eosinophil pct 1.2 % [facility] ([place]) Comment: Interpretive Data Percent cell count reference ranges are not reported, since discordance with absolute values may lead to misinterpretation of CBC data. Current Interpretive Data was last revised on 2017. Basophil pct 0.5 % [facility] ([place]) Comment: Interpretive Data Percent cell count reference ranges are not reported, since discordance with absolute values may lead to misinterpretation of CBC data. Current Interpretive Data was last revised on 2017. Blood 04/22/2025 7:41 AM CDT 04/22/2025 7:49 AM CDT us Az Yung MD LAB BLOOD ORDERABLES Final R esult [facility] ([place]) 1 [facility] Department [place] [address] * (ABNORMAL) CBC with auto differential (04/22/2025 7:41 AM CDT) WBC 9.40 3.80 - 9.90 K/cumm Hgb 12.8 11.9 - 15.5 g/dL [facility] ([place]) Hct 36.9 35.6 - 45.5 % [facility] ([place]) Plt 456(H) 150 - 400 K/cumm [facility] ([place]) MPV 9.2 9.1 - 12.3 fL [facility] ([place]) RBC 4.22 3.90 - 5.20 M/cumm [facility] ([place]) MCV 87.4 81.3 - 96.4 fL [facility] ([place]) MCH 30.3 27.1 - 33.3 pg [facility] ([place]) MCHC 34.7 32.3 - 35.7 g/dL [facility] ([place]) RDW CV 12.6 11.1 - 14.9 % [facility]) RDW SD 40.3 35.7 - 48.1 fL [facility] ([place]) NRBC abs 0.00 0.00 - 0.01 K/cumm [facility] ([place]) Blood Venous blood specimen / Unknown 04/22/2025 7:41 AM CDT 04/22/2025 7:49 AM CDT us Az Yung MD LAB BLOOD ORDERABLES Final R esult [facility] ([place]) 1 [facility] Department [place] [address] * (ABNORMAL) hCG, blood, quantitative (04/22/2025 7:41 AM CDT) hCG, quant 50,300.0( H) 0.0 - 5.0 IUnits/L [facility] ([place]) Comment: Interpretive Data Male: < 5 IU/L Non- premenopausal Female: <5 IU/L The Vadim hCG Beta Quant assay procedure was used. Results from different manufacturers or methods may not be comparable. Serial testing should be performed using the same method. Interpretive Data was last revised on 2023 Blood 04/22/2025 7:41 AM CDT 04/22/2025 8:10 AM CDT us Jabari COHEN LAB BLOOD ORDERA BLES Final Result [facility] ([place]) 1 [facility] Department [place] [address] * Lipase (04/22/2025 7:41 AM CDT) Lipase 33 10 - 99 Units/L [facility] ([place]) Blood Venous blood specimen / Unknown 04/22/2025 7:41 AM CDT 04/22/2025 7:49 AM CDT us Az Yung MD LAB BLOOD ORDERABLES Final R esult Performing Organization Address [facility] Co de Phone Number SUPRIYA MICHAEL (ROSEANNE) 1 [facility] Department [place] [address] * (ABNORMAL) Comprehensive metabolic panel (04/22/2025 7:41 AM CDT) Sodium 139 135 - 145 mmol/L [facility] ([place]) Potassium, pl 4.0 3.3 - 4.9 mmol/L [facility] ([place]) Chloride 104 97 - 110 mmol/L [facility] ([place]) CO2 19(L) 22 - 32 mmol/L [facility] ([place]) Anion gap 16(H) 2 - 15 mmol/L [facility] ([place]) BUN 9 6 - 25 mg/dL [facility] ([place]) Creatinine 0.55(L) 0.60 - 1.10 mg/dL [facility] ([place]) Glucose 100 70 - 199 mg/dL [facility] ([place]) Comment: Interpretive Data Fasting glucose >/= 126 mg/dl is diagnostic for diabetes. Fasting is defined as no caloric intake [...] classification and Diagnosis of Diabetes Diabetes Care 2021; 46: S19-S40. Current interpretive data was last revised 2022. Calcium 9.6 8.5 - 10.3 mg/dL [facility] ([place]) Bilirubin, total 0.4 0.1 - 1.2 mg/dL [facility] ([place]) Protein, pl 7.4 6.5 - 8.5 g/dL [facility] ([place]) Albumin 4.5 3.5 - 5.0 g/dL [facility] ([place]) Alk phos 43 40 - 130 Units/L [facility] ([place]) ALT 14 7 - 45 Units/L [facility] ([place]) AST 19 10 - 45 Units/L [facility] ([place]) Blood 04/22/2025 7:41 AM CDT 04/22/2025 7:49 AM CDT us Az Yung MD LAB BLOOD ORDERABLES Final R esult SUPRIYA [facility] (ROSEANNE) 1 [facility] Department [place] [address] * BLOOD MISC TO [place] (04/11/2025 12:25 PM CDT) Test name, chem SMNCS [facility] Comment:Testing performed by : [facility], [address] [place] [address]., [id number] Misc See Footnote SUPRIYA Comment: Test Result Flag Unit RefValue SMA Carrier by Del/Dup Result Summary See Footnote RESULT: NEGATIVE FOR SMN1 DELETION (SEE INTERPRETATION) Result See Footnote 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 One copy of SMN2 was detected. The [id number] polymorphism is absent. Interpretation See Footnote This result indicates a reduced carrier risk for Spinal Muscular Atrophy (SMA). Please see the table below for residual risk based on ancestry and absence of SMN1 [id number] (1). Individuals who carry two copies of the SMN1 gene on one chromosome and zero copies of SMN1 on their other chromosome (i.e. 2+0 carriers) are at risk to have an affected child when their partner is also an SMA carrier. Other alterations within the SMN1 gene, such as point mutations, are not detected by this assay. Patient Pre-drop tester Residual Risk of (2+0) Ancestry Frequency SMA Carrier Status [employer]kenazi [employer] 1 in 41.1 1 in 580 1 in 53 1 in 701.8 1 in 66 1 in 395.7 1 in 117 1 in 1,762 1 in 35 1 in 769.3 The calculations noted in the chart are based on known population carrier frequencies and assume no family history of SMA. We are unable to provide a revised risk assessment for ancestries other than those listed as there is insufficient information available about the SMA carrier frequency for other populations. A genetic consultation may be of benefit. ADDITIONAL INFORMATION Laboratory developed test (LDT) for SMN1 exon 7, SMN2 exon 7 copy number and SMN1 [id number] ([id number]) detection by droplet digital PCR. Mutation nomenclature is based on the following GenBank Accession number(s) (build GRCh37 (hg19)): [id number]. See [email or web address] (Test ID SMNCS) for additional information about this test. CAUTIONS: CLINICAL CORRELATIONS Test results should be interpreted in context of clinical findings, family history, and other laboratory data. Misinterpretation of results may occur if the information provided is inaccurate or incomplete. If testing was performed because of a family history of Spinal Muscular Atrophy, it is often useful to first test an affected family member. TECHNICAL LIMITATIONS Point mutations are undetectable by this assay. Nor can the assay discriminate between two copies of SMN1 on the same chromosome versus two copies on separate chromosomes. Bone marrow transplants from allogenic donors will interfere with testing. Call [facility] for instructions for testing patients who have received a bone marrow transplant. TEST CLASSIFICATION This test was developed and its performance characteristics determined by [facility] in a manner consistent with CLIA requirements. This test has not been cleared or approved by the U.S. Food and Drug Administration. Additional Information See Footnote REFERENCES 1. Donna Med. 2013;16(2):149-156. PMID [id number] Specimen WB Whole Blood Released By See Footnote RESULT: Ermelinda Leos M.D., Ph.D. Test Performed by: [place] [address] Broker Assistant: Mckenzie Mensah Ph.D.; CLIA# [id number] Testing performed by: [address] [address] Blood 04/11/2025 12:2 5 PM CDT 04/14/2025 12:45 PM CDT [facility] SUPRIYA - 04/17/2025 5:09 PM CDT SMA Carrier by Del/Dup us Stefania Munoz DO LAB BLOOD ORDERABLES Fi nal Result SUPRIYA [id number] [place] [address] Department [place] [address] [facility] * (ABNORMAL) Differential, auto (04/11/2025 9:46 AM CDT) Neutrophil abs 6.53(H) 1.50 - 6.50 K/cumm Comment:Testing performed by : [facility], [address] [place] [address]., [address] Imm gran abs 0.02 0.00 - 0.10 K/cumm SUPRIYA Comment:Testing performed by : [address] [address] Lymphocyte abs 1.93 0.80 - 3.30 K/cumm SUPRIYA Comment:Testing performed by : [address] [address] Monocyte abs 0.63 0.20 - 0.80 K/cumm CERNER CH Comment:Testing performed by : [facility], [address] [place] [address]., [address] Eosinophil abs 0.07 0.00 - 0.50 K/cumm CERNER CH Comment:Testing performed by : [facility], [address] [place] [address]., [address] Basophil abs 0.05 0.00 - 0.10 K/cumm C[facility]ER CH Comment:Testing performed by : [facility], [address] [place] [address]., [address] Neutrophil pct 70.8 % [facility] CH Comment: Interpretive Data Percent cell count reference ranges are not reported, since discordance with absolute values may lead to misinterpretation of CBC data. Current Interpretive Data was last revised on 2017. Testing performed by: [facility], [address] [place] [address]., [address] Imm gran pct 0.2 % [facility] CH Comment: Interpretive Data Percent cell count reference ranges are not reported, since discordance with absolute values may lead to misinterpretation of CBC data. Current Interpretive Data was last revised on 2017. Testing performed by: [address] [address] Lymphocyte pct 20.9 % C[facility] CH Comment: Interpretive Data Percent cell count reference ranges are not reported, since discordance with absolute values may lead to misinterpretation of CBC data. Current Interpretive Data was last revised on 2017. Testing performed by: [address] [address] Monocyte pct 6.8 % C[facility] CH Comment: Interpretive Data Percent cell count reference ranges are not reported, since discordance with absolute values may lead to misinterpretation of CBC data. Current Interpretive Data was last revised on 2017. Testing performed by: [address] [address] Eosinophil pct 0.8 % C[facility] CH Comment: Interpretive Data Percent cell count reference ranges are not reported, since discordance with absolute values may lead to misinterpretation of CBC data. Current Interpretive Data was last revised on 2017. Testing performed by: [address] [address] Basophil pct 0.5 % [facility] CH Comment: Interpretive Data Percent cell count reference ranges are not reported, since discordance with absolute values may lead to misinterpretation of CBC data. Current Interpretive Data was last revised on 2017. Testing performed by: [address] [address] Blood 04/11/2025 9:46 AM CDT 04/11/2025 2:06 PM CDT Stefania Munoz LAB BLOOD ORDERABLES Fi nal Result Performing Organization Address [facility] de Phone Number MAKIPACO [facility] [place] [address] * HIV 1/2 Antibody plus p24 Antigen Blood (04/11/2025 9:46 AM CDT) Pathologist [facility] HIV 1/2 ab + p24 ag Nonreactive Nonreactive Comment: Nonreactive for HIV-1 antigen and HIV-1/HIV-2 antibodies. No laboratory evidence of HIV infection. If acute HIV infection is suspected, consider testing for HIV-1 RNA. Testing performed by: [address] [address] Blood 04/11/2025 9:46 AM CDT 04/11/2025 2:14 PM CDT Stefania Munoz DO LAB MICROBIOLOGY - GENE RAL ORDERABLES Final Result Performing Organization Address [facility] de Phone Number MAKIPACO [address] [facility] Department [place] [address] * (ABNORMAL) CBC with auto differential (04/11/2025 9:46 AM CDT) Pathologist [facility] WBC 9.23 3.80 - 9.90 K/cumm Comment:Testing performed by : [address] [address] Hgb 12.6 11.9 - 15.5 g/dL SUPRIYA Comment:Testing performed by : [address] [address] Hct 38.7 35.6 - 45.5 % C[facility]ER CH Comment:Testing performed by : [facility], [address] [place] [address], [address] Plt 461(H) 150 - 400 K/cumm CERNER CH Comment:Testing performed by : [facility], [address] [place] [address], [address] MPV 11.2 9.1 - 12.3 fL CERNER CH Comment:Testing performed by : [facility], [address] [place] [address], [address] RBC 4.24 3.90 - 5.20 M/cumm CERNER CH Comment:Testing performed by : [facility], [address] [place] [address], [address] MCV 91.3 81.3 - 96.4 fL CERNER CH Comment:Testing performed by : [facility], [address] [place] [address], [address] MCH 29.7 27.1 - 33.3 pg CERNER CH Comment:Testing performed by : [address], [address] MCHC 32.6 32.3 - 35.7 g/dL CERNER CH Comment:Testing performed by : [address], [address] RDW CV 12.8 11.1 - 14.9 % CERNER CH Comment:Testing performed by : [address], [address] RDW SD 42.6 35.7 - 48.1 fL CERNER CH Comment:Testing performed by : [address], [address] NRBC abs 0.00 0.00 - 0.01 K/cumm CERNER CH Comment:Testing performed by : [address], [address] Blood 04/11/2025 9:46 AM CDT 04/11/2025 2:06 PM CDT Stefania Munoz DO LAB BLOOD ORDERABLES Fi nal Result [address] Department [place] [address] * Hepatitis C antibody Blood (04/11/2025 9:46 AM CDT) Hep C Ab Nonreactive Nonreactive Comment: Interpretive Data Nonreactive: Antibodies to HCV not detected. Does NOT exclude the possibility of recent exposure to HCV. Equivocal: Equivocal for HCV antibodies. Supplemental molecular testing will be automatically performed to determine infection status in accordance with current CDC screening recommendations. Reactive: Positive for HCV antibodies. This may represent current or past HCV infection. Supplemental molecular testing will be automatically performed to determine current infection status in accordance with current CDC screening recommendations. Interpretive data was last revised on 2019. Testing performed by: [address] [address] Blood 04/11/2025 9:46 AM CDT 04/11/2025 2:06 PM CDT Stefania Munoz DO LAB MICROBIOLOGY - [facility] ORDERABLES Final Result SUPRIYA [address] [place] [address] * (ABNORMAL) Drugs of Abuse Screen, Urine without Confirmation (04/11/2025 9:46 AM CDT) Pathologist [facility] Amphetamine, ur Not Detected CutOff 500ng/mL Comment: Interpretive Data - Amphetamines: Samples containing greater than 500 ng/mL d-methamphetamine or other cross-reacting amphetamine compounds are reported as positive. Amphetamine immunoassays are subject to significant false positive rates due to cross-reactivity of non-amphetamine drugs. Confirmatory testing required for definitive results. Current Interpretive Data was last reviewed 2023. Testing performed by: [address] [address] Barbiturates, ur Not Detected CutOff 200ng/mL SUPRIYA CANALES Comment: Interpretive Data - Barbiturates: Samples containing greater than 200 ng/mL secobarbital or other cross-reacting barbiturate compounds are reported as positive. False positive and false negative results are possible. Confirmatory testing required for definitive results. Current Interpretive Data was last reviewed 2023. Testing performed by: [facility], [address] [place] [address]., [address] Benzodiazepines, ur Not Detected CutOff 100ng/mL CERNER Comment: Interpretive Data - Benzodiazepines: Samples containing greater than 100 ng/mL nordiazepam or other cross-reacting compounds are reported as positive. False positive and false negative results are possible. Confirmatory testing required for definitive results. Current Interpretive Data was last reviewed 2023. Testing performed by: [facility], [address] [place] [address]., [address] Cannabinoids, ur Screen Positive, presumptive (A) CutOff 50 ng/mL CERNER Comment: Interpretive Data - Cannabinoids: Samples containing greater than 50 ng/mL delta-9 THC -COOH or other cross- reacting compounds are reported as positive. False positive and false negative results are possible. Confirmatory testing required for definitive results. Current Interpretive Data was last reviewed 2023. Testing performed by: [address] [address] Cocaine, ur Not Detected CutOff 150ng/mL CERNER Comment: Interpretive Data - Cocaine: Samples containing greater than 150 ng/mL benzoylecgonine or other cross- reacting compounds are reported as positive. False positive and false negative results are possible. Confirmatory testing required for definitive results. Current Interpretive Data was last reviewed 2023. Testing performed by: [address] [address] Fentanyl, Ur Not Detected CutOff 5 ng/mL CERNER Comment: Interpretive Data - Fentanyl: Samples containing greater than 5 ng/mL norfentanyl, fentanyl, or other cross-reacting fentanyl compounds are reported as positive. False positive and false negative results are possible. Confirmatory testing required for definitive results. Current Interpretive Data was last reviewed 2023. Testing performed by: [address] [address] Methadone, ur Not Detected CutOff 300ng/mL CERNER Comment: Interpretive Data - Methadone: Samples containing greater than 300 ng/mL d,l-methadone or other cross-reacting compounds are reported as positive. False positive and false negative results are possible. Confirmatory testing required for definitive results. Current Interpretive Data was last reviewed 2023. Testing performed by: [facility], [address] [place] [address]., [address] Opiates, ur Not Detected CutOff 300ng/mL SUPRIYA Comment: Interpretive Data - Opiates: Samples containing greater than 300 ng/mL morphine or other cross-reacting compounds are reported as positive. False positive and false negative results are possible. Confirmatory testing required for definitive results. Current Interpretive Data was last reviewed 2023. Testing performed by: [address] [address] Oxycodone, ur Not Detected CutOff 100ng/mL [facility] Comment: Interpretive Data - Oxycodone: Samples containing greater than 100 ng/mL oxycodone or other cross-reacting compounds are reported as positive. False positive and false negative results are possible. Confirmatory testing required for definitive results. Current Interpretive Data was last reviewed 2023. Testing performed by: [address] [address] Phencyclidine, ur Not Detected CutOff 25 ng/mL SUPRIYA Comment: Interpretive Data - Phencyclidine: Samples containing greater than 25 ng/mL phencyclidine or other cross-reacting compounds are reported as positive. False positive and false negative results are possible. Confirmatory testing required for definitive results. Current Interpretive Data was last reviewed 2023. Testing performed by: [address] [address] Urine Creatinine 31 mg/dL [facility] Comment: Interpretive Data Urine Creatinine: < 10 mg/dL is extremely dilute = or > 10 but < 20 mg/dL is dilute = or > 20 mg/dL is normal Current Interpretive Data was last revised on 2017. Testing performed by: [address] [address] Urine 04/11/2025 9:46 AM CDT 04/11/2025 2:14 PM CDT Narrative [facility] - 04/11/2025 3:24 PM CDT Drug of Abuse screening is performed by immunoassay for medical purposes only. This is not to be used for Pain Management purposes. Stefania Munoz DO LAB URINE ORDERABLES Fi nal Result SUPRIYA CANALES [address] [place] [address] * (ABNORMAL) Rubella IgG antibody Blood (04/11/2025 9:46 AM CDT) Rubella IgG Equivocal( A) Comment: Equivocal: Presence or absence of detectable antibody to rubella cannot be determined. Submit new specimen if clinically indicated. Testing performed by: [facility], [address] [place]., [address] Blood 04/11/2025 9:46 AM CDT 04/12/2025 12:55 AM CDT Stefania Munoz DO LAB MICROBIOLOGY - GENE RAL ORDERABLES Final Result Performing Organization Address [facility] de Phone Number SUPRIYA [address] [place] [address] * RPR Blood (04/11/2025 9:46 AM CDT) Pathologist [facility] RPR Nonreactive Nonreactive Comment:Testing performed by : [address] [address] Blood 04/11/2025 9:46 AM CDT 04/11/2025 2:06 PM CDT Stefania Munoz DO LAB MICROBIOLOGY - GENE RAL ORDERABLES Final Result Performing Organization Address [facility] Co de Phone Number SUPRIYA [address] [facility] [place] [address] * Hepatitis B Surface Antigen Blood (04/11/2025 9:46 AM CDT) HepBsAg Nonreactive Nonreactive Comment:Testing performed by : [address] [address] Blood 04/11/2025 9:46 AM CDT 04/11/2025 2:06 PM CDT Stefania Munoz DO LAB MICROBIOLOGY - GENE RAL ORDERABLES Final Result Performing Organization Address City/[facility]/ZIP Co de Phone Number SUPRIYA [id number] [facility] [place] [address] * Type and screen (04/11/2025 9:46 AM CDT) Andrew, indirect Negative ABO Rh AB Positive [facility] Blood 04/11/2025 9:46 AM CDT 04/11/2025 2:17 PM CDT Narrative [facility] - 04/11/2025 3:08 PM CDT Has the patient had Daratumumab or Isatuximab in the past 6 months?->Unknown Stefania Munoz DO LAB BLOOD BANK TEST ORD ERABLES Final Result Performing Organization Address [facility] Co de Phone Number MAKIPACO CANALES [address] [address] [place] [address] * Urine culture Urine, clean voided (04/11/2025 9:46 AM CDT) Report Final Report: Less than 100,000 colonies/mL (clinically insignificant growth based on current clinical standards) Comment:Testing performed by : [facility], [address] [place]., [address] Organism (CLINICALLY INSIGNIFICANT GROWTH [facility] Urine, clean voided 04/11/2025 9:46 AM CDT 04/11/2025 4:39 PM CDT Narrative [facility] - 04/12/2025 5:18 PM CDT Testing performed by [facility] Microbiology Laboratory ([phone]) Stefania Munoz DO LAB MICROBIOLOGY - GENE RAL ORDERABLES Final Result Performing Organization Address City/[facility]/ZIP Co de Phone Number MAKIPACO CANALES [address] [address] [place] [address] * (ABNORMAL) Varicella Zoster IgG antibody Blood (04/11/2025 9:46 AM CDT) Pathologist [facility] VZV IgG Nonreacti ve(A) Reactive Comment: Non-reactive: No detectable antibody to Varicella-zoster virus. Such individuals are presumed to be uninfected and to be susceptible to primary infection. Testing performed by: [facility], [address] [place] [address]., [address] Blood 04/11/2025 9:46 AM CDT 04/12/2025 12:55 AM CDT Stefania Munoz DO LAB MICROBIOLOGY - GENE RAL ORDERABLES Final Result SUPRIYA CANALES [address] [place] [address] * ThinPrep processing (Molecular component) (04/10/2025 12:04 PM CDT) [facility] [address] ThinPrep processing (Molecular component) Specimen received for processing. [facility] Comment:Testing performed by : [facility], [address] [place] [address], [place]., [address] Endocervical 04/10/2025 12:0 4 PM CDT 04/11/2025 12:00 PM CDT Stefania Munoz DO LAB BODY FLUIDS AND STO OLS ORDERABLES Final Result SUPRIYA CANALES [address] Department [place] [address] [facility] * Pap with reflex to High Risk HPV and Genotyping (Cytology Component) (04/10/2025 12:04 PM CDT) Thin prep (Pap test) 04/10/2025 12:04 PM CDT 04/10/2025 12:04 PM CDT Narrative PATHOLOGY - 04/18/2025 1:10 PM CDT [facility] Department of Pathology [address] [place] [address] Final Report Note to Patients: This report may contain [...] can answer questions and explain the details. Patient Name: ROSALBA LI Address: [address] [place] [address] Gender: F : 2005 (Age: 19) Service: Location: N : [id number] [facility] #: [id number] Patient Type: [facility] SPECIMEN Taken: 04/10/2025 Received: 04/10/2025 Accessioned:: 04/11/2025 Reported: 04/18/2025 Physician(s): Mila Martin D.O. Diagnosis: SOURCE OF SPECIMEN Imaged Thinprep Pap Test w/ Reflex HPV - Manager Project Management Cytologic Material: STATEMENT OF ADEQUACY - Satisfactory for evaluation; endocervical/transformation zone component present GENERAL CATEGORIZATION: - Negative for intraepithelial lesion or malignancy GARY Masterson(ASCP)GARY Alford(ASCP) Report Electronically Reviewed and Signed Out By GARY Alford(ASCP) 04/18/2025 13:10:22Specimen(s) Received: A: Imaged Thinprep Pap Test w/ Reflex HPV - Manager Project Management Cytologic Material Clinical History: Last Menstrual Period: 01/09/25 Menstrual History: The Pap test is a screening test used to aid in the detection of cervical cancer and its precursors. It should not be the sole means by which malignant and premalignant lesions are diagnosed. Both false negative and false positive results may occur. It also has poor sensitivity for the detection of endometrial lesions and should not be used to evaluate suspected endometrial abnormalities. For these reasons it is most important to obtain Pap tests at regular intervals. The performance characteristics of some immunohistochemical stains, fluorescence in-situ hybridization tests and immunophenotyping by flow cytometry cited in this report (if any) were determined by the Surgical Pathology Department at [facility] as part of an ongoing chemistry quality control technician program and in compliance with federally mandated regulations drawn from the Clinical Laboratory Improvement Act of 1988 (CLIA '88). Some of these tests rely on the use of analyte specific reagents and are subject to specific labeling requirements by the US Food and Drug Administration. Such diagnostic tests may only be performed in a facility that is certified by the Department of Health and Human Services as a high complexity laboratory under CLIA '88. The FDA has determined that such clearance or approval is not necessary. This test is used for clinical purposes. It should not be regarded as investigational or for research. Nevertheless, federal rules concerning the medical use of analyte specific reagents require that the following disclaimer be attached to the report: This test was developed and its performance characteristics determined by the Surgical Pathology Department [facility]. It has not been cleared or approved by the U. S. Food and Drug Administration. Stefania Munoz DO LAB CYTOLOGY ORDERABLES Final Result PATHOLOGY [address] [place] [address] * N. gonorrhoeae/C. trachomatis Amplification Thin prep-Endocervical (04/10/2025 12:04 PM CDT) C. trachomatis Not Detected [facility] Comment:Testing performed by : [facility], [address] [place]., [address] N. gonorrhoeae Not Detected SUPRIYA CANALES Comment: Interpretive Data This assay detects Chlamydia trachomatis and Neisseria gonorrhoeae by nucleic acid amplification testing (NAAT). This assay has been cleared by the [place] Food and Drug administration. The performance characteristics of this test have been verified by the [facility] Molecular Infectious Disease laboratory. The performance characteristics of this test have not been evaluated in individuals less than 14 years of age. Current Interpretive Data was last revised on 2023. Testing performed by: [facility], [address] [place]., [address] Thin prep-Endocervica l 04/10/2025 12:04 PM CDT 04/11/2025 12:00 PM CDT Stefania Beasley Alexander PEREZ LAB MICROBIOLOGY - GENE RAL ORDERABLES Final Result Performing Organization Address [facility] Co de Phone Number SUPRIYA CANALES [address] [place] [address] [facility] * Trichomonas vaginalis PCR Thin prep-Endocervical (04/10/2025 12:04 PM CDT) Trichomonas DNA Not Detected [facility] Comment: Interpretive Data This assay detects Trichomonas vaginalis by nucleic acid amplification testing (NAAT). This assay has been cleared by the [place] Food and Drug administration. The performance characteristics of this test have been verified by the [facility] Molecular Infectious Disease laboratory. The performance of this test has not been evaluated in individuals less than 18 years of age. Current Interpretive Data was last revised on 2023. Testing performed by: [facility], [address] [place]., [address] Thin prep-Endocervica l 04/10/2025 12:04 PM CDT 04/11/2025 12:00 PM CDT Stefania Beasley Sauer DO LAB MICROBIOLOGY - GENE RAL ORDERABLES Final Result Performing Organization Address [facility] de Phone Number SUPRIYA CANALES [address] [place] [address] [facility] * US Ob Under 14 Weeks W Endovaginal (04/10/2025 9:08 AM CDT) Anatomical Region Laterality Modality Abdomen N/A Ultrasound 04/17/2025 6:51 AM CDT Narrative 04/17/2025 6:54 AM CDT EXAM DESCRIPTION: US OB UNDER 14 WEEKS W ENDOVAGINAL REASON FOR STUDY: determine viability, Check viability in first trimester of Viability Beta-hC TECHNIQUE: Transabdominal and transvaginal images acquired of the pelvis. COMPARISON: None. FINDINGS: The clinical age is 13 weeks 0 days with an JACOB 10/16/2025. The uterus is anteverted and measures 7.8 x 3.6 x 5.2 cm. Is a single intrauterine with pole and yolk sac. The mean crown-rump length is 0.63 cm which corresponds to an estimated age 6 weeks 3 days with an JACOB 12/01/2025. Adjacent to the gestational sac there is the curvilinear anechoic collection 1.7 x 0.3 x 0.5 cm characteristic of a subchorionic hemorrhage. Yolk sac is 2.7 mm. The heart rate is 115 beats per minute. Right ovary is measured at 3.9 x 1.8 x 3.1 cm. Preserved color flow and waveforms of the right ovary. Left ovary is 2.6 x 1.5 x 1.6 cm. Preserved color flow and waveforms left ovary. A definitive corpus luteum cyst is not identified. No free fluid in the pelvis. IMPRESSION: 1. Single uterine estimated at 6 weeks 3 days with an JACOB 12/01/2025. 2. heart rate 115 beats per minute. 3. Probable small subchorionic hemorrhage. THIS IS AN ELECTRONICALLY VERIFIED FINAL REPORT 04/17/2025 6:54 AM - Electronically signed by Kiko Vázquez M.D. CH: PARKER Report ID: [id number] Reading Location: [id number] Procedure Note Kiko Vázquez MD - 04/17/2025 EXAM DESCRIPTION: US OB UNDER 14 WEEKS W ENDOVAGINAL REASON FOR STUDY: determine viability, Check viability in first trimester of Viability Beta-hC TECHNIQUE: Transabdominal and transvaginal images acquired of thepelvis. COMPARISON: None. FINDINGS: The clinical age is 13 weeks 0 days with an JACOB 10/16/2025. The uterus is anteverted and measures 7.8 x 3.6 x 5.2 cm. Is a single intrauterine with pole and yolk sac. The mean crown-rump length is 0.63 cm which corresponds to an estimatedage 6 weeks 3 days with an JACOB 12/01/2025. Adjacent to the gestational sac there is the curvilinear anechoiccollection 1.7 x 0.3 x 0.5 cm characteristic of a subchorionic hemorrhage. Yolk sac is 2.7 mm. The heart rate is 115 beats per minute. Right ovary is measured at 3.9 x 1.8 x 3.1 cm. Preserved color flow and waveforms of the right ovary. Left ovary is 2.6 x 1.5 x 1.6 cm. Preserved color flow and waveforms left ovary. A definitive corpus luteum cyst is not identified. No free fluid in the pelvis. IMPRESSION: 1. Single uterine estimated at 6 weeks 3 days with an JACOB 12/01/2025. 2. heart rate 115 beats per minute. 3. Probable small subchorionic hemorrhage. THIS IS AN ELECTRONICALLY VERIFIED FINAL REPORT 04/17/2025 6:54 AM - Electronically signed by Kiko Vázquez M.D. CH: PARKER Report ID: [id number] Reading Location: [place] [address] Stefania Munoz DO IMG OB US PROCEDURES Fi nal Result * (ABNORMAL) hCG, blood, quantitative (04/03/2025 11:23 AM CDT) [facility] [address] hCG, quant 9,940.0(H ) 0.0 - 5.0 IUnits/L Comment: Interpretive Data Male: < 5 IU/L Non- premenopausal Female: <5 IU/L The Vadim hCG Beta Quant assay procedure was used. Results from different manufacturers or methods may not be comparable. Serial testing should be performed using the same method. Interpretive Data was last revised on 2023 Testing performed by: [facility], [address] [place] [address], [place] [address] Blood 04/03/2025 11:2 3 AM CDT 04/03/2025 7:20 PM CDT Stefania Munoz DO LAB BLOOD ORDERABLES Fi nal Result SUPRIYA [facility] [place] [address] * US Ob Under 14 Weeks W Endovaginal (04/02/2025 10:11 AM CDT) Anatomical Region Laterality Modality Abdomen N/A Ultrasound 04/02/2025 10:2 3 AM CDT Narrative 04/02/2025 10:35 AM CDT EXAM DESCRIPTION: US OB UNDER 14 WEEKS W ENDOVAGINAL REASON FOR STUDY: Vaginal bleeding, initial exam Beta-hC TECHNIQUE: Transabdominal and transvaginal images acquired of the pelvis. COMPARISON: None. FINDINGS: Clinical gestational age: 11 weeks and 6 days Clinical estimated Due Date: 10/16/2025 Intrauterine gestational sac: Present Yolk sac: Present Subchorionic bleed: No Placenta: Not identified Mean sac diameter: 1.38 cm [place]-rump length: Not identified. heart rate: Not identified. Gestational age by this ultrasound: 6 weeks and 2 days JACOB by this ultrasound: 11/24/2025 Uterus: The uterus is anteflexed , measuring 8.9 x 4.6 x 5.0 cm. Small nabothian cysts. Cervix appears closed. Right Ovary/Adnexa: The right ovary measures 4.2 x 1.6 x 2.2 cm. There is documentation of color Doppler flow in the right ovary. The right ovary appears unremarkable. No adnexal mass. Left Ovary/Adnexa: The left ovary measures 3.2 x 1.9 x 2.0 cm. There is documentation of color Doppler flow in the left ovary. The left ovary appears unremarkable. No adnexal mass. Free Fluid: Trace free fluid within the rectouterine pouch, likely physiologic.. Other Findings: None. IMPRESSION: Intrauterine gestational sac and yolk sac seen without visualized embryo. Recommend correlation with beta-HCG levels and follow-up pelvic US in 7-10 days to reassess viability. THIS IS AN ELECTRONICALLY VERIFIED FINAL REPORT 04/02/2025 10:35 AM - Electronically signed by Dillon Lang M.D. NS: NS Report ID: [id number] Reading Location: [id number] Procedure Note Dillon Lang MD - 04/02/2025 EXAM DESCRIPTION: US OB UNDER 14 WEEKS W ENDOVAGINAL REASON FOR STUDY: Vaginal bleeding, initial exam Beta-hC TECHNIQUE: Transabdominal and transvaginal images acquired of thepelvis. COMPARISON: None. FINDINGS: Clinical gestational age: 11 weeks and 6 days Clinical estimated Due Date: 10/16/2025 Intrauterine gestational sac: Present Yolk sac: Present Subchorionic bleed: No Placenta: Not identified Mean sac diameter: 1.38 cm [place]-rump length: Not identified. heart rate: Not identified. Gestational age by this ultrasound: 6 weeks and 2 days JACOB by this ultrasound: 11/24/2025 Uterus: The uterus is anteflexed , measuring 8.9 x 4.6 x 5.0 cm.Small nabothian cysts. Cervix appears closed. Right Ovary/Adnexa: The right ovary measures 4.2 x 1.6 x 2.2 cm. Thereis documentation of color Doppler flow in the right ovary. The right ovary appears unremarkable. No adnexal mass. Left Ovary/Adnexa: The left ovary measures 3.2 x 1.9 x 2.0 cm. There is documentation of color Doppler flow in the left ovary. The left ovaryappears unremarkable. No adnexal mass. Free Fluid: Trace free fluid within the rectouterine pouch, likely physiologic.. Other Findings: None. IMPRESSION: Intrauterine gestational sac and yolk sac seen without visualized embryo. Recommend correlation with beta-HCG levels and follow-up pelvic US in 7-10 days to reassess viability. THIS IS AN ELECTRONICALLY VERIFIED FINAL REPORT 04/02/2025 10:35 AM - Electronically signed by Dillon Lang M.D. NS: NS Report ID: [id number] Reading Location: [id number] us Leilani COHEN IMG OB US PROCEDURES Final Resu lt * eGFR (04/02/2025 8:07 AM CDT) eGFR >90 >=60 mL/min/1. 73 m2 Comment: Interpretive Data Reference Interval Normal >/= 90 mL/min/1.73m2 Mildly decreased* 60 - 89 mL/min/1.73m2 Mildly to moderately decreased 45 - 59 mL/min/1.73m2 Moderately to severely decreased 30 - 44 mL/min/1.73m2 Severely decreased 15 - 29 mL/min/1.73m2 Kidney Failure < 15 mL/min/1.73m2 *Relative to young adult level Estimated glomerular filtration rate is determined by the 2020 CKD-EPI equation recommended by the National Kidney Foundation (A Unifying Approach to GFR Estimation: Recommendations of the NKF-ASK Task Force on Reassessing the Inclusion of Race in Diagnosing Kidney Disease, JASN 2020). The CKD-EPI equation should not be used for patients with unstable renal function and has not been validated in children and those over 70. Current interpretive data was last reviewed 2021. Blood 04/02/2025 8:07 AM CDT 04/02/2025 8:12 AM CDT us Leilani COHEN LAB BLOOD ORDERABLES Final Resu lt SUPRIYA [facility] ([place]) 1 [facility] Department [place] [address] * Differential, auto (04/02/2025 8:07 AM CDT) Neutrophil abs 6.21 1.50 - 6.50 K/cumm Imm gran abs 0.03 0.00 - 0.10 K/cumm [facility] ([place]) Lymphocyte abs 2.62 0.80 - 3.30 K/cumm [facility] ([place]) Monocyte abs 0.63 0.20 - 0.80 K/cumm [facility] ([place]) Eosinophil abs 0.15 0.00 - 0.50 K/cumm [facility] ([place]) Basophil abs 0.05 0.00 - 0.10 K/cumm [facility] ([place]) Neutrophil pct 64.2 % [facility] ([place]) Comment: Interpretive Data Percent cell count reference ranges are not reported, since discordance with absolute values may lead to misinterpretation of CBC data. Current Interpretive Data was last revised on 2017. Imm gran pct 0.3 % [facility] ([place]) Comment: Interpretive Data Percent cell count reference ranges are not reported, since discordance with absolute values may lead to misinterpretation of CBC data. Current Interpretive Data was last revised on 2017. Lymphocyte pct 27.0 % [facility] ([place]) Comment: Interpretive Data Percent cell count reference ranges are not reported, since discordance with absolute values may lead to misinterpretation of CBC data. Current Interpretive Data was last revised on 2017. Monocyte pct 6.5 % [facility] ([place]) Comment: Interpretive Data Percent cell count reference ranges are not reported, since discordance with absolute values may lead to misinterpretation of CBC data. Current Interpretive Data was last revised on 2017. Eosinophil pct 1.5 % [facility] ([place]) Comment: Interpretive Data Percent cell count reference ranges are not reported, since discordance with absolute values may lead to misinterpretation of CBC data. Current Interpretive Data was last revised on 2017. Basophil pct 0.5 % [facility] ([place]) Comment: Interpretive Data Percent cell count reference ranges are not reported, since discordance with absolute values may lead to misinterpretation of CBC data. Current Interpretive Data was last revised on 2017. Blood 04/02/2025 8:07 AM CDT 04/02/2025 8:12 AM CDT us Leilani COHEN LAB BLOOD ORDERABLES Final Resu lt SUPRIYA [facility]HA[facility] ([place]) 1 [facility] Department [place] [address] * (ABNORMAL) CBC with auto differential (04/02/2025 8:07 AM CDT) WBC 9.69 3.80 - 9.90 K/cumm Hgb 11.7(L) 11.9 - 15.5 g/dL SUPRIYA MICHAEL ([place]) Hct 35.0(L) 35.6 - 45.5 % [facility] ([place]) Plt 422(H) 150 - 400 K/cumm [facility] ([place]) MPV 9.2 9.1 - 12.3 fL [facility] ([place]) RBC 3.84(L) 3.90 - 5.20 M/cumm [facility] ([place]) MCV 91.1 81.3 - 96.4 fL [facility] ([place]) MCH 30.5 27.1 - 33.3 pg [facility] ([place]) MCHC 33.4 32.3 - 35.7 g/dL [facility] ([place]) RDW CV 12.8 11.1 - 14.9 % [facility] ([place]) RDW SD 42.0 35.7 - 48.1 fL [facility] ([place]) NRBC abs 0.00 0.00 - 0.01 K/cumm [facility] ([place]) Blood 04/02/2025 8:07 AM CDT 04/02/2025 8:12 AM CDT Leilani COHEN LAB BLOOD ORDERABLES Final Resu lt SUPRIYA MICHAEL ([place]) 1 [facility] [place] [address] * ABO/Rh (04/02/2025 8:07 AM CDT) ABO/Rh AB Positive Blood 04/02/2025 8:07 AM CDT 04/02/2025 8:41 AM CDT Narrative [facility] ([place]) - 04/02/2025 9:14 AM CDT Has the patient had Daratumumab or Isatuximab in the past 6 months?->Unknown Leilani COHEN LAB BLOOD BANK TEST ORDERABLES Final Result SUPRIYA MICHAEL ([place]) 1 [facility] [place] [address] * Antibody screen (04/02/2025 8:07 AM CDT) [facility] Andrew, indirect, Gel Interpretation Negative ABSC Blood 04/02/2025 8:07 AM CDT 04/02/2025 8:41 AM CDT Narrative [facility] ([place]) - 04/02/2025 9:14 AM CDT Has the patient had Daratumumab or Isatuximab in the past 6 months?->Unknown [facility] LAB BLOOD BANK TEST ORDERABLES Final Result Performing Organization Address [facility] Co de Phone Number [facility] ([place]) 1 [facility] [place] [address] * (ABNORMAL) hCG, blood, quantitative (04/02/2025 8:07 AM CDT) [facility] [address] hCG, quant 8,476.0(H ) 0.0 - 5.0 IUnits/L [facility] ([place]) Comment: Interpretive Data Male: < 5 IU/L Non- premenopausal Female: <5 IU/L The Vadim hCG Beta Quant assay procedure was used. Results from different manufacturers or methods may not be comparable. Serial testing should be performed using the same method. Interpretive Data was last revised on 2023 Blood 04/02/2025 8:07 AM CDT 04/02/2025 8:12 AM CDT [facility] LAB BLOOD ORDERABLES Final Resu lt Performing Organization Address City/[facility]/ZIP Co de Phone Number [facility] ([place]) 1 [facility] [place] [address] * (ABNORMAL) Comprehensive metabolic panel (04/02/2025 8:07 AM CDT) [facility] [address] Sodium 135 135 - 145 mmol/L [facility] ([place]) Potassium, pl 4.2 3.3 - 4.9 mmol/L [facility] ([place]) Chloride 104 97 - 110 mmol/L [facility] ([place]) CO2 18(L) 22 - 32 mmol/L [facility] ([place]) Anion gap 13 2 - 15 mmol/L [facility] ([place]) BUN 7 6 - 25 mg/dL [facility] ([place]) Creatinine 0.69 0.60 - 1.10 mg/dL [facility] ([place]) Glucose 99 70 - 199 mg/dL [facility] ([place]) Comment: Interpretive Data Fasting glucose >/= 126 mg/dl is diagnostic for diabetes. Fasting is defined as no caloric intake [...] classification and Diagnosis of Diabetes Diabetes Care 2021; 46: S19-S40. Current interpretive data was last revised 2022. Calcium 9.1 8.5 - 10.3 mg/dL [facility] ([place]) Bilirubin, total 0.2 0.1 - 1.2 mg/dL [facility] ([place]) Protein, pl 6.8 6.5 - 8.5 g/dL [facility] ([place]) Albumin 4.3 3.5 - 5.0 g/dL [facility] ([place]) Alk phos 40 40 - 130 Units/L [facility] ([place]) ALT 10 7 - 45 Units/L [facility] ([place]) AST 21 10 - 45 Units/L [facility] ([place]) Blood 04/02/2025 8:07 AM CDT 04/02/2025 8:12 AM CDT us Leilani COHEN LAB BLOOD ORDERABLES Final Resu lt [facility] ([place]) 1 [facility] Department [place] [address] from Last 3 Months Insurance [facility] MED[facility]ID [facility] Care Teams Gear Repairer Relationship Specialty Start Date End Date Radha Martins MD [address] [place] [address] PCP - General Obstetrics and Gynecology 04/02/25
--- NOTE | 2025-05-02 17:12 | ED.URI ---
HPI - URI/Sore Throat General Chief Complaint: Upper Respiratory Infection Stated Complaint: Ear Pain/Sore Throat/Patient is Time Seen by Provider: 05/02/25 17:12 Source: patient Mode of arrival: ambulatory Limitations: no limitations History of Present Illness HPI Narrative: 19 yo F presents with c/o sore throat, bilateral ear pain, fatigue, runny nose since this AM. Afebrile. No N/v/d. Pt 10 wks . didn't know what OTC meds she could take. Wants strep test. All systems reviewed and negative except as noted above. Related Data Home Medications ?Medication ?Instructions ?Recorded ?Confirmed ?Last Taken ?Type bupropion HCl 300 mg 24 hr tablet, 300 mg PO DAILY 07/22/24 07/22/24 Unknown History extended release buspirone 15 mg tablet mg 09/23/24 Unknown History prochlorperazine maleate 10 mg mg 05/02/25 Unknown History tablet Allergies Allergy/AdvReac Type Severity Reaction Status Date / Time metoclopramide (From Reglan) Allergy Unknown FELT ON Verified 12/20/24 10:49 [facility] Past Medical History Medical History UTI (urinary tract infection) Fracture of right hand Bipolar 1 disorder, mixed Anxiety and depression Ear infection Surgical History Surgical History History of placement of ear tubes History of tonsillectomy and adenoidectomy Social History Social History Smoking status: Current every day smoker Tobacco type: e-cigarettes/vaping Alcohol intake: never Substance use type: does not use Living arrangements: with family Gender identity (if verbalized by the patient): Female Comments At time of signature, agree with nursing past medical, surgical, social and family history. There is no relevant family history pertinent to the presenting complaint. Exam Narrative: GENERAL: This is a well-nourished, well-developed patient, in no apparent distress. HEAD: normocephalic, atraumatic. EYES: PERRL. Sclera clear/white. Vision is grossly intact. EARS: External ears normal, auditory canals clear and without drainage, TMs normal without perforation. Hearing grossly intact. NOSE: External nose normal with no obvious nasal discharge, nares without redness, no rhinorrhea. THROAT: Mucous membranes moist, Erythema without swelling or exudates NECK: Neck supple, non-tender without lymphadenopathy, masses or thyromegaly. CARDIOVASCULAR: Regular rate and rhythm without murmurs, gallops, or rubs. RESPIRATORY: Clear to auscultation. Breath sounds equal bilaterally. No wheezes, rales, or rhonchi. SKIN: warm, Dry, intact with no suspicious lesions or rash, good texture and turgor. NEURO: awake, alert, and oriented to person, place and time. There were no obvious focal neurologic abnormalities. EXTREMITIES: No joint tenderness, effusion, or edema noted. Course Course Level of Care: Express Care Visit Vital Signs Vital signs: Vital Signs Temperature 36.1 C L 05/02/25 17:02 Pulse Rate 103 H 05/02/25 17:02 Respiratory Rate 16 05/02/25 17:02 Blood Pressure 147/78 H 05/02/25 17:02 Pulse Oximetry 100 05/02/25 17:02 Oxygen Delivery Room Air 05/02/25 17:02 Temperature 36.1 C L 05/02/25 17:02 Pulse Rate 103 H 05/02/25 17:02 Respiratory Rate 16 05/02/25 17:02 Blood Pressure 147/78 H 05/02/25 17:02 Pulse Oximetry 100 05/02/25 17:02 Oxygen Delivery Room Air 05/02/25 17:02 reviewed MDM - URI/Sore Throat MDM Narrative Medical decision making narrative: negative rapid strep. Strep culture ordered. Patient is well-appearing, nontoxic. Will wait for strep culture prior to treating with antibiotics. Recommend Tylenol to treat pain. Differential Diagnosis Differential diagnosis: Likely upper respiratory infection, sinusitis, viral infection and pharyngitis Lab Data Labs: Lab Results 05/02/25 Range/Units 17:17 POC Grp A Strep Screen Negative (Negative) Discharge Plan Discharge Clinical Impression: Acute viral pharyngitis Patient Disposition: Home Condition: Stable Instructions: Pharyngitis (ED) Additional Instructions: your strep test was negative today. A strep culture was ordered and results will take 48-72 hours. If your strep culture is positive we will call you at that time and prescribed an antibiotic. Take Tylenol every 6-8 hours as needed for pain. Drink plenty of water and rest. See your doctor if symptoms are not improving. Patient Language: Rw[place] Prescriptions: No Action bupropion HCl 300 mg tablet extended release 24 hr 300 mg PO DAILY prochlorperazine maleate 10 mg tablet buspirone 15 mg tablet Follow-up/Referrals: PHYSICIAN,STARTING SHEET TANK OPERATOR [Primary Care Provider, Internal Medicine] Time of Disposition: 17:21
[2025-05-02 17:19] LABS: EDSTREPNEGPOS1 Negative (Negative)
== END 2025-05-02 17:29 | disposition home or self-care (01) ==
PROVIDERS: Emergency Provider Nurse Practitioner Family
DX: J02.8 Acute pharyngitis due to other specified organisms (principal); F17.290 Nicotine dependence, other tobacco product, uncomplicated
CPT/HCPCS: 87081; 87880; 99213; G0463

== ENCOUNTER 2025-07-15 18:25 | Emergency (ER) | payer OTHER, SELFPAY ==
[2025-07-15 18:32] VITALS: BP 122/80; PULSE 82; RESP 18; TEMP 36.8; O2SAT 100
--- NOTE | 2025-07-15 18:35 | ED_ITS ---
HPI - Ear Problem General Chief complaint: Ear Stated complaint: Ear Pain Time Seen by Provider: 07/15/25 18:35 Source: patient, RN notes reviewed and old records reviewed Mode of arrival: ambulatory Limitations: no limitations History of Present Illness HPI Narrative: 19 year old female who presents to [facility] care with complaints of 3 day history of cough and 1 day history of bilateral ear pain with the right ear having some mabry yellow drainage. Patient is 20 weeks an has been taking some Tylenol for her symptoms. Patient reports no fevers, chills or body aches. Patient reports that step son has had cold symptoms. MD Complaint: ear pain and other (cough) Location: bilateral Severity: moderate Discharge from ear: Reports yes - clear (watery yelowish) Treatment prior to arrival: other (Tylenol) Related Data Home Medications ?Medication ?Instructions ?Recorded ?Confirmed ?Last Taken ?Type vit no.[id number] PO 07/15/25 Unknown Hi story Allergies Allergy/AdvReac Type Severity Reaction Status Date / Time metoclopramide (From Reglan) Allergy Unknown FELT ON Verified 07/15/25 18:33 FIRE Review of Systems Review of Systems: CONSTITUTIONAL: Denies malaise, chills, sweats, or fever. EYES: Denies visual changes, redness, or discharge. ENT: Reports rhinorrhea, congestion,no sinus pain, bilateral otalgia and no sore throat. CARDIOVASCULAR: Denies chest pain, palpitations, or edema. RESPIRATORY: Reports cough.? Denies dyspnea. GASTROINTESTINAL: Denies abdominal pain, nausea, vomiting, diarrhea SKIN: Denies rash or itching. MUSCULOSKELETAL: Denies myalgia. NEUROLOGIC: Denies headache. All systems reviewed & are unremarkable except as noted in HPI and below PMFSH Past Medical History Medical History UTI (urinary tract infection) Fracture of right hand Bipolar 1 disorder, mixed Anxiety and depression Ear infection Surgical History Surgical History History of placement of ear tubes History of tonsillectomy and adenoidectomy Social History Social History Smoking status: Former smoker Tobacco type: e-cigarettes/vaping Alcohol intake: never Substance use type: does not use Living arrangements: with family Gender identity (if verbalized by the patient): Female Comments At time of signature, agree with nursing past medical, surgical, social and family history. There is no relevant family history pertinent to the presenting complaint Exam Narrative: GENERAL: Well-appearing, well-nourished, and in no acute distress. HEAD: Normocephalic EYES: PERRLA, conjunctivae clear ENT: Nares clear, turbinates edematous and erythematous, clear discharge. Mucous membranes moist. TM pearly norwood with dull light reflex bilaterally; no tragal tenderness.right ear canal is red and excoriated. Oropharynx erythematous without lesions. Tonsils not present and throat without exudate, no drooling, no hoarseness, no trismus, uvula midline post nasal drainage. NECK: Supple. No lymphadenopathy CHEST: Clear to auscultation, breath sounds equal. No wheezing, rhonchi, rales, or stridor. No respiratory distress, speaks in full sentences.cough noted SAO2 100% on room air HEART: Regular rate and rhythm. No murmur heard. SKIN: Warm, dry, no rash. NEURO: Alert and oriented x3. PSYCH: Normal mood and affect Course Course Emergency Course: Patient is aware of diagnosis, understands and agrees to treatment plan.? Anticipatory guidance given.? Patient agrees to follow-up as directed and is aware of reasons to seek care at the emergency department. Portions of this record may have been created with voice recognition software Level of Care: Express Care Visit Vital Signs Vital signs: Vital Signs Temperature 36.8 C 07/15/25 18:32 Pulse Rate 82 07/15/25 18:32 Respiratory Rate 18 07/15/25 18:32 Blood Pressure 122/80 07/15/25 18:32 Pulse Oximetry 100 07/15/25 18:32 Oxygen Delivery Room Air 07/15/25 18:32 Temperature 36.8 C 07/15/25 18:32 Pulse Rate 82 07/15/25 18:32 Respiratory Rate 18 07/15/25 18:32 Blood Pressure 122/80 07/15/25 18:32 Pulse Oximetry 100 07/15/25 18:32 Oxygen Delivery Room Air 07/15/25 18:32 Reviewed Medical Decision Making Differential Diagnosis Differential Diagnosis: URI, otalgia, otitis externa right ear, viral infection cough Medical Records Medical records reviewed: Yes I reviewed the external patient's medical records. Vital Signs Vital Signs: Vital Signs Temperature 36.8 C 07/15/25 18:32 Pulse Rate 82 07/15/25 18:32 Respiratory Rate 18 07/15/25 18:32 Blood Pressure 122/80 07/15/25 18:32 Pulse Oximetry 100 07/15/25 18:32 Oxygen Delivery Room Air 07/15/25 18:32 Temperature 36.8 C 07/15/25 18:32 Pulse Rate 82 07/15/25 18:32 Respiratory Rate 18 07/15/25 18:32 Blood Pressure 122/80 07/15/25 18:32 Pulse Oximetry 100 07/15/25 18:32 Oxygen Delivery Room Air 07/15/25 18:32 reviewed Critical Care Time Critical Care Time Critical Care Time: No Discharge Plan Discharge Clinical Impression: Otitis externa Qualifiers: Otitis externa type: diffuse Chronicity: acute Laterality: right Qualified Code(s): H60.311 - Diffuse otitis externa, right ear Cough Qualifiers: Cough type: acute Qualified Code(s): R05.1 - Acute cough Patient Disposition: Home Condition: Stable Instructions: Antibiotic Form, Swimmer's Ear (ED), Cold Symptoms (ED) Additional Instructions: Increase fluids especially juices and water [id number]-[id number] cough and cold medicine of your choice for your symptoms that is safe to take with sheet given of medication that are safe to take during heat to the face 20-30 minutes 4-6 times a day for pain Salt water gargles, throat lozenges or throat sprays as desired Antibiotic ear drops as directed-- take as ordered If your symptoms persist, change or worsen significantly before you can contact your personal physician then please, without delay, go to the emergency department for further evaluation. Follow-up with PCP in 7-10 days or sooner if needed Patient Language: Romanian Prescriptions: New ofloxacin 0.3 % drops 5 drp RIGHT EAR BID 7 Days Qty: 10 0RF No Action vit no.[id number] [ Plus Vitamin-Mineral] PO Follow-up/Referrals: PHYSICIAN,GENERAL UTILITY MAINTENANCE REPAIRER [Primary Care Provider, Internal Medicine] Stand Alone Forms: Work/School Release IP Time of Disposition: 18:49 Quality Janet Coma Scale Eyes: Open Verbal: Oriented and Alert Motor: Follows Commands Janet Coma Total Score: 15
--- OUTSIDE RECORDS SUMMARY | 2025-07-16 04:25 | XMS_ITS | Encounter Summary ---
Author Organization [facility] Healthcare Address [address] [place] [address] Care Team Providers Care Human Factors Specialist Name Role Phone Stefania Munoz DO Primary Care Provider Reason for Visit * Reason Onset Date Comments Patient issue/concern 07/10/2025 Encounter Details Date Type Department Care Team (Late st Contact Info) Description 07/10/2025 Telephone [facility] [address] [place] [address] Stefania Munoz DO [address] [place] [address] Patient issue/concern Social History Tobacco Use Types Packs/Day Years [...] you got the money to buy more. Sometimes true Within the past 12 months, t he food you bought just didn't last and you didn't have money to get more. Sometimes true 07/2025 PRAPARE - Transportation Answer Date Re corded In the past 12 months, has l ack of transportation kept you from medical appointments or from getting medications? No 04/28 In the past 12 months, has l ack of transportation kept you from meetings, work, or from getting things needed for daily living? No 05/09/2025 Housing Stability Vital Sign Answer Wagner e Recorded In the last 12 months, was t here a time when you were not able to pay the mortgage or rent on time? No 05/09/2025 In the past 12 months, how m any times have you moved where you were living? 0 05/09/2025 At any time in the past 12 m [facility], were you homeless or living in a senior living (including now)? No 05/09/2025 [facility] Utilities Answer Date Recorded In the past 12 months has th e electric, gas, oil, or water company threatened to shut off services in your home? No 05/09/2025 Personal Safety Answer Date Recorded Have you ever been in or are you currently in a harmful physical or emotional relationship or is someone making you feel afraid or unsafe? Denies 06/28/2025 Estimated Date of Delivery Comme nts Yes 12/01/2025 Based on Ultraso und Sex and Gender Information Value Date Recorded Sex Assigned at Not on file Legal Sex Female 3:14 AM SELF PAY SPECIALIST Gender Identity Not on file Sexual Orientation Not on file Occupation Industry Job Start Date Job End Date Not on file Not on file Not on file Not on file documented as of this encounter Miscellaneous Notes * Telephone Encounter - Indiana Lutz LPN - 07/11/2025 8:36 AM SELF PAY SPECIALIST Letter faxed. to make Pt aware. PAY SPECIALIST * Telephone Encounter - Stefania Munoz DO - 07/10/2025 5:50 PM SELF PAY SPECIALIST Okay to send our dental letter. PAY SPECIALIST * Telephone Encounter - Guilherme Monroe - 07/10/2025 3:46 PM CST Patient has a dental appt on 08/05 and they are asking for a letter that states it is ok to do xrays. Fax number [phone] PAY SPECIALIST documented in this encounter Plan of Treatment Not on file documented as of this encounter Visit Diagnoses Not on filedocumented in this encounter Care Teams Human Factors Specialist Relationship Specialty Start Date End Date Stefania Munoz DO [address] [place], [place] [address] PCP - General Obstetrics and Gynecology 06/24/25 documented as of this encounter
--- OUTSIDE RECORDS SUMMARY | 2025-07-16 04:25 | XMS_ITS | Clinical Summary ---
Author Organization [facility] Address [address] [facility] [place] [address] Care Team Providers Care Patient Portal Representative Name Role Phone Nelly Marcus MD Primary Care Provider [phone] Source Comments [facility],non-owned Affiliates and Associated Physician Practices is amultiple site organization consisting of ambulatory clinics and hospital sitesin [place], [place], [place] and [place]. This disclosure is being madepursuant to the Care Everywhere program and may not contain all information available regarding this patient. Last updated 18.[facility] [employer] Allergies No known active allergies Medications * [...] 04/27/2016 Assessment & Plan (07/27/2016 3:57 PM TECHNICIAN HELPER INSTRUMENT): Assessment: 11 year old girl with chronic [...] Comments Blood Pressure 102/78 09/17/2019 9:47 AM TECHNICIAN HELPER INSTRUMENT Pulse 84 08/07/2019 7:48 AM TECHNICIAN HELPER INSTRUMENT per p cp Temperature 36.8 C (98.3 F) 08/07/2019 7:48 AM TECHNICIAN HELPER INSTRUMENT per pcp Respiratory Rate 20 03/28/2016 10:1 4 AM CDT per pcp Oxygen Saturation - - Inhaled Oxygen Concentration - - Weight 80.7 kg (177 lb 14.6 oz) 09/17/2019 9:47 AM TECHNICIAN HELPER INSTRUMENT Height 155.5 cm (5' 1.22) 09/17/2019 9:47 AM CS T Body Mass Index 33.37 09/17/2019 9:47 AM TECHNICIAN HELPER INSTRUMENT Plan of Treatment Health Maintenance Due Date [...] to complete this topic Insurance [id number] [facility] [employer] [facility] Care Teams Patient Portal Representative Relationship Specialty [place] [address] [place] [id number] PCP - General 10/15/19
--- OUTSIDE RECORDS SUMMARY | 2025-07-16 04:25 | XMS_ITS | Clinical Summary ---
Author Organization [facility] Address [address] [place] [address] Phone Care Team Providers Care Work Order Clerk Name Role Phone Radha Martins MD Primary Care Provider Shannon moore Allergies Active Allergy Reactions Criticality Noted Date [...] Sex Assigned at Female 10/25/2023 8:55 PM TELEVISION ACTOR Legal Sex Female 8:58 PM CDT Gender Identity Female 10/25/2023 8:55 PM TELEVISION ACTOR Sexual Orientation Not on file Last Filed Vital Signs Vital Sign Reading Time Taken Comments Blood Pressure 108/73 09/27/2024 9:25 AM TELEVISION ACTOR Pulse 81 09/27/2024 9:25 AM TELEVISION ACTOR Temperature 36.8 C (98.2 F) 09/27/2024 9:25 AM TELEVISION ACTOR Respiratory Rate 20 03/20/2024 2:17 PM CDT Oxygen Saturation 100% 09/27/2024 9:25 AM TELEVISION ACTOR Inhaled Oxygen Concentration - - Weight 58.2 kg (128 lb 4.8 oz) 09/27/2024 9:25 A M TELEVISION ACTOR Height 152.4 cm (5') 09/27/2024 9:25 AM TELEVISION ACTOR Body Mass Index 25.06 09/27/2024 9:25 AM TELEVISION ACTOR Plan of Treatment Health Maintenance Due Date Last Done Comments Hepatitis C Virus (HCV) Screening 2003 Meningococcal B Immunization (1 of 2 - Standard) 2019 Pap Smear 2024 Influenza Immunization (#1) 2025 05/31/2016, 1 SARS-COV-2 Immunization ( - season) 2025 Respiratory Syncytial Virus (RSV) Immunization (Adult) (1 [...] this topic Insurance MEDICAID [employer] Care Teams Work Order Clerk Relationship Specialty Start Date End Date Radha Martins MD PCP - General Family Medicine 01/02/24
--- OUTSIDE RECORDS SUMMARY | 2025-07-16 04:25 | XMS_ITS | Encounter Summary ---
Author Organization [facility] Address [address] [place] [address] Phone Care Team Providers Care Poultry Buyer Name Role Phone Jabari Bynum MD Primary Care Provider Provider, None Primary Care Provider Radha Muniz MD Primary Care Provider Shannon moore Encounter Details Date Type Department Care Team (Late st Contact Info) Description 06/30/2021 [facility] Admitting [address] [place] [address] Jabari Bynum MD [address] [place] [address] Acute pharyngitis, unspecified etiology (Primary [...] Sex Assigned at Female 10/25/2023 8:55 PM BOAT RIDE OPERATOR Legal Sex Female 8:58 PM CDT Gender Identity Female 10/25/2023 8:55 PM BOAT RIDE OPERATOR Sexual Orientation Not on file documented as [...] 19 09/04/2022 09/04/2022 09/14/2022 12:1 6 AM BOAT RIDE OPERATOR COVID - 19 02/27/2024 02/27/2024 02/27/2024 10:2 8 AM CDT documented as of this encounter Care Teams Poultry Buyer Relationship Specialty Start Date End Date Jabari Bynum MD [address] [place] [address] PCP - General Pediatrics 06/19/18 09/03/22 Provider, None [place] PCP - General 09/04/22 01/01/24 Radha Martisn MD [place] PCP - General Family Medicine 01/02/24 documented as of this encounter
--- OUTSIDE RECORDS SUMMARY | 2025-07-16 04:25 | XMS_ITS | Clinical Summary ---
Author Organization [facility] Address [address] [place] [address] Care Team Providers Care Field Counsel Name Role Phone Betsy Munoz DO Primary Care Provider Allergies Active Allergy Reactions [...] mg by mouth daily 10/30/19 22 Active buPROPion XL (WELLBUTRIN XL) 150 mg 24 hr tablet Take 1 tablet (150 mg total) by mouth daily 07/29/20 22 Active prazosin (MINIPRESS) 2 mg capsule Take 1 [...] vomiting 30 tablet 1 04/25/20 25 Active scopolamine 1 mg over 3 days patch [address] 1 patch on the skin every third day for 72 hours 10 patch 2 05/08/20 25 Active ondansetron ODT (ZOFRAN-ODT) 4 mg disintegrating tabletIndications:N ausea and vomiting, unspecified vomiting type Take 1 tablet (4 mg total) by mouth every 8 (eight) hours as needed for nausea or vomiting 30 tablet 2 05/08/20 25 Active ondansetron (Zofran) 4 mg tabletIndications:G astroenteritis Take 1 tablet (4 mg total) by mouth every 8 (eight) hours as needed for nausea or vomiting 30 tablet 3 06/05/20 25 Active Active Problems Problem Noted Date [...] Encounters Date Type Department Care Team Description 07/10/2025 Telephone [facility] [address] [place] [address] Betsy Munoz DO Patient issue/concern 07/08/2025 Results Follow-Up [address] [address] Betsy Munoz DO 48 HR Holter Monitor 07/03/2025 8:30 AM FINANCIAL PROFESSIONAL Ancillary Procedure [facility] [address] [place] [address] Excessive growth affecting management of in second trimester, single or unspecified fetus 07/03/2025 [facility] [address] [place] [address] Betsy Munoz DO Encounter for follow-up ultrasound of anatomy (Primary Dx) 07/01/2025 1:58 PM FINANCIAL PROFESSIONAL - 07/01/2025 11:59 PM FINANCIAL PROFESSIONAL Hospital Encounter [facility] [address] [place] [address] Syncope, unspecified syncope type Discharge Disposition: Discharge to home or self care 06/28/2025 3:45 PM CDT - 06/28/2025 7:46 PM CDT Emergency [facility] Emergency Department [address] [place] [address] Ed Adair MD Hyperventilation syndrome (Primary Dx); Dehydration; Advanced maternal age, 1st , first trimester Discharge Disposition: Discharge to home or self care 06/23/2025 Telephone [facility] [address] [facility] [address] [place] [address] Betsy Munoz, Patient issue/concern 06/05/2025 3:40 PM CDT Office Visit [facility] [address] [facility] [address] [place] [address] Betsy Munoz DO Supervision of normal first in first trimester (Primary Dx); Gastroenteritis 06/05/2025 Orders Only [facility] [address] [facility] [address] [place] [address] Betsy Munoz, Excessive growth affecting management of in second trimester, single or unspecified fetus (Primary Dx) 06/03/2025 3:00 PM CDT Lab [facility] [address] [facility] [address] [place] [address] Dysuria; Syncope, unspecified syncope type 05/24/2025 1:32 AM CDT - 05/24/2025 3:48 AM CDT Emergency [facility] Emergency Department [address] [place] [address] Candida Velasquez MD Hyperemesis gravidarum (Primary Dx) Discharge Disposition: Discharge to home or self care 05/23/2025 Telephone [facility] [address] [facility] [address] [place] [address] Stephanie Jackson MD 05/19/2025 Results Follow-Up [address] [phone] Betsy Munoz DO [employer]NatelaAdvanced 05/08/2025 3:40 PM CDT Office Visit [facility] [address] [place] [address] Betsy Munoz DO Supervision of normal first in first trimester (Primary Dx); Gastroenteritis; Nausea and vomiting, unspecified vomiting type 05/08/2025 Orders Only [facility] [address] [place] [address] Betsy Munoz DO Maternal care for (suspected) chromosomal abnormality in fetus, unspecified, not applicable or unspecified (Primary Dx) 04/24/2025 Telephone [facility] [address] [place] [address] Betsy Munoz DO Patient issue/concern 04/22/2025 7:03 AM CDT - 04/22/2025 1:33 PM CDT Emergency [facility] Emergency Department [address] [place] [address] Abdominal pain, generalized (Primary Dx); Nausea and vomiting, unspecified vomiting type Discharge Disposition: Discharge to home or self care 04/15/2025 Results Follow-Up [address] [address] Betsy Munoz DO Varicella Zoster IgG antibody Blood, Urine culture Urine, clean voided, Type and screen, Additional followed-up results: 9 from Last 3 Months Surgical History Surgery [...] any time in the past 12 m [facility], were you homeless or living in a residential (including now)? No 05/09/2025 [facility] Utilities Answer Date Recorded In the past 12 months has th e [employer], gas, oil, or water company threatened to [...] on file Legal Sex Female 3:14 AM FINANCIAL PROFESSIONAL Gender Identity Not on file Sexual Orientation [...] Estimated Date of Delivery 04/10/2025 - Present (07/16/2025) 12/01/2025 (set by Me she Munoz DO on 04/10/2025 based on Ultrasound on 04/10/2025) Dating Summary Based On JACOB GA Diff Last Menstrual Period on 01/09/2025 (Exact Date) 10/16/2025 +6w4d Ultrasound on 04/10/2025 12/01/2025 Working GA:6w3d Alternate JACOB Entry 12/01/2025 Same Comment:Date entered prior t o episode creation Vitals Pregravid Weight Height TWG (As of 07/16/2025) Pregrav id BMI 154.9 cm (5' 1) Notes Progress Notes - Office Visi t - 06/05/2025 - GA:14w3d 06/05/2025 - w3d - Betsy Munoz DO Pt states she is doing better. The Zofran has been helping her nausea. Refill sent today. Her LLQ pain improved but is till there at times. Urine from this week did not show a UTI or blood. Discussed it could be something with the ovary which will be evaluated at her next visit when she has her anatomy US. If it gets bad before then, pt to let us know. RTC in 4 weeks. Progress Notes - Office Visi t - 05/08/2025 - GA:10w3d 05/08/2025 - w3d - Betsy Munoz DO Pt states she is still struggling with nausea and vomiting. She states she has a lot of mucous which makes her cough and then vomit. She has been taking Claritin daily. Recommend Mucinex as well. She has Zofran and Compazine. She is allergic to Reglan and didn't feel like B6/Unisom helped. Will send in Scopolamine patch too. NIPT ordered today. RTC in 4 weeks. 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 Review of Systems HENT: [...] kg/m Physical OB Exam: Last filed by Betsy Munoz DO on 04/10/2025 1:44 PM General [...] of normal in first trimester 04/10/2025 by Betsy Munoz DO No Overview Signed 04/10/2025 1:41 PM by Betsy Munoz DO Dated by 6w3d PNL: ordered today GC/CT: collected today UCx: ordered today Pap: collected today Genetics: discussed Engages in nicotine containing substance vaping 04/10/2025 by Betsy Munoz DO No Overview Signed 04/10/2025 1:44 PM by Betsy Munoz DO S/p counseling. Cessation encouraged. Marijuana use 04/10/2025 by Betsy Munoz DO No Overview Signed 04/10/2025 1:44 PM by Betsy Munoz DO S/p counseling. Cessation encouraged. Heterozygous factor V Leiden mutation 08/12/2024 by Donald Davies NP No Overview Signed 04/10/2025 1:42 PM by Betsy Munoz DO Pt has never had a [...] No Overview Signed 04/10/2025 1:43 PM by Betsy Munoz DO Previously on bupropion but discontinued when she became . Discussed there are safe medications in if she feels she needs something. She declines anything right now. Plan: vitamin with DHA discussed Labs ordered Discussed genetic testing - patient to check with insurance on NIPT Additional concerns: N/V - B6/Unisom sent to pharmacy Follow up in 4 weeks. Betsy Munoz DO 04/10/2025 Last Filed Vital Signs Vital Sign [place] Time Taken Comments Blood Pressure 135/80 06/28/2025 7:15 PM CDT Pulse 99 06/28/2025 7:30 PM CDT Temperature 37.1 C (98.7 F) 06/28/2025 3:39 PM CDT Respiratory Rate 23 06/28/2025 7:30 PM CDT Oxygen Saturation 99% 06/28/2025 7:30 PM CDT Inhaled Oxygen Concentration - - Weight 63.5 kg (140 lb) 06/28/2025 3:39 PM CDT Height 152.4 cm (5') 06/28/2025 3:39 PM CDT Body Mass Index 27.34 06/28/2025 3:39 PM CDT Plan of Treatment Health Maintenance Due [...] Completed 09/03/2007, 07/27/2004 HPV Vaccines Completed 05/15/2017, 1011/2015, 03/30/2016 Meningococcal Vaccine Completed 05/26/2021 , 03/30/2016, 03/30/2016 Hepatitis C Screening Completed 04/11/2025 Procedures Procedure Name Priority Date/Time Associated Diagnosis Comments US OB 14 WEEKS OR OVER Schedule Routine, Read Routine (OP Routine) 07/03/2025 11:23 AM FINANCIAL PROFESSIONAL Excessive growth affecting management of in second trimester, single or unspecified fetus HOLTER MONITOR 48 HR Routine 07/01/2025 2:06 PM FINANCIAL PROFESSIONAL Syncope, unspecified syncope type SEPSIS LACTATE WITH REFLEX STAT 06/28/2025 4:17 PM CDT EGFR STAT 06/28/2025 4:16 PM CDT DIFFERENTIAL AUTO STAT 06/28/2025 4:1 6 PM CDT ANTIBODY SCREEN Timed 06/28/2025 4:16 PM CDT ABO/RH Timed 06/28/2025 4:16 PM CDT BLOOD GAS, VENOUS STAT 06/28/2025 4:1 6 PM CDT D-DIMER, QUANTITATIVE STAT 06/28/2025 4:16 PM CDT MAGNESIUM Routine 06/28/2025 4:16 PM CDT URINALYSIS AND REFLEX TO MICROSCOPIC STAT 06/28/2025 4:16 PM CDT COMPREHENSIVE METABOLIC PANEL STAT 06/28/2025 4:16 PM CDT CBC WITH AUTO DIFFERENTIAL STAT 06/28/2025 4:16 PM CDT TYPE AND SCREEN Timed 06/28/2025 4:16 PM CDT ECG 12-LEAD STAT 06/28/2025 3:44 PM CDT POCT URINE GLUCOSE AND PROTEIN Routine 06/05/2025 3:35 PM CDT Supervision of normal first in first trimester EGFR Routine 06/03/2025 2:59 PM CDT Syncope, unspecified syncope type COMPREHENSIVE METABOLIC PANEL Routine 06/03/2025 2:59 PM CDT Syncope, unspecified syncope type MAGNESIUM Routine 06/03/2025 2:59 PM CDT Syncope, unspecified syncope type PHOSPHORUS Routine 06/03/2025 2:59 PM CDT Syncope, unspecified syncope type URINALYSIS AND REFLEX TO MICROSCOPIC AND CULTURE Routine 06/03/2025 2:59 PM CDT Dysuria ECG 12-LEAD Routine 05/24/2025 1:49 AM CDT EGFR STAT 05/24/2025 1:34 AM CDT DIFFERENTIAL AUTO STAT 05/24/2025 1:3 4 AM CDT COMPREHENSIVE METABOLIC PANEL STAT 05/24/2025 1:34 AM CDT CBC WITH AUTO DIFFERENTIAL STAT 05/24/2025 1:34 AM CDT HCG, BLOOD, QUANTITATIVE STAT 05/24/2025 1:34 AM CDT QNATEL ADVANCED Routine 05/09/2025 1:19 PM CDT Maternal care for (suspected) chromosomal abnormality in fetus, unspecified, not applicable or unspecified POCT URINE GLUCOSE AND PROTEIN Routine 05/08/2025 3:42 PM CDT Supervision of normal first in first trimester URINALYSIS AND REFLEX TO MICROSCOPIC AND CULTURE [...] AUTO DIFFERENTIAL STAT 04/22/2025 7:41 AM CDT HEPATITIS C ANTIBODY Routine 04/11/2025 9:46 AM CDT Less than 8 weeks gestation of Encounter for supervision of normal first in first trimester N. GONORRHOEAE/C. TRACHOMATIS AMPLIFICATION Routine 04/10/2025 12:04 PM CDT Screen for sexually transmitted diseases PAP WITH REFLEX TO HIGH RISK HPV Routine 04/10/2025 12:04 PM CDT Screening for malignant neoplasm of cervix from Last 3 Months or Most Recently Relevant to Health Maintenance Results * US Ob 14 Weeks Or Over (07/03/2025 11:23 AM FINANCIAL PROFESSIONAL) Anatomical Region Laterality Modality Abdomen N/A Ultrasound 07/03/2025 12:0 2 PM FINANCIAL PROFESSIONAL Impressions 07/03/2025 12:02 PM FINANCIAL PROFESSIONAL 1. Single live intrauterine gestation with heart rate 147 beats per minute. 2. Grossly normal anatomic survey. Heart and kidneys not well visualized. Consider attention on follow-up. 3. measurements as above. 4. Adequate amniotic fluid volume with maximum vertical pocket of 4.2 cm. Electronically signed by: Dillon Lang M.D. Narrative 07/03/2025 12:02 PM FINANCIAL PROFESSIONAL EXAMINATION: US OB 14 WEEKS OR OVER ORDERING HEALTHCARE PROVIDER: BETSY MUNOZ HISTORY: size/growth Check measurements and fluid levels. COMPARISON: 04/10/2025 Clinical EDC at the time of this exam is 12/01/2025 TECHNIQUE: Multiple static transabdominal images of the pelvis were submitted for review. Cine-images were also obtained. FINDINGS: Gestational Age estimated by this US: 18 weeks and 3 days EDC estimated by this US: 12/01/2025 EFW estimated by this US: 254 grams (0 pounds 9 ounces). EFW is at the 64.3% based upon the provided EDC or prior US if available. Placenta is located: Anterior position: Breech Heart Rate: 147 bpm Amniotic Fluid Deepest Vertical Pocket: 4.2 cm ANATOMY: 3 vessel cord: Seen with no gross abnormality identified. Intracranial Anatomy: Seen with no gross abnormality identified. Heart (4 chamber): Not clearly seen. Spine: Seen with no gross abnormality identified. Inferior most lumbar spine not fully included within the [id number]-cp-[id number]. Stomach: Seen with no gross abnormality identified. Renal Fossa (area): Not clearly seen. Urinary Bladder: Seen with no gross abnormality identified. Cord Insertion/Abdominal Wall: Seen with no gross abnormality identified. Nose/Lips: Seen with no gross abnormality identified. MEASUREMENTS: BPD: 4.04 cm, 18 w 2 d. HC: 15.02 cm, 18 w 1 d. AC: 13.41 cm, 18 w 6 d. FL: 2.85 cm, 18 w 5 d. HC/AC: 1.12 FL/HC: 18.97 FL/AC: 21.25 Cervical length: Initially measured 5.3 cm. Subsequent measurement of 3.7 cm. Procedure Note Dillon Lang MD - 07/03/2025 EXAMINATION: US OB 14 WEEKS OR OVER ORDERING HEALTHCARE PROVIDER: BETSY MUNOZ HISTORY: size/growth Check measurements and fluid levels. COMPARISON: 04/10/2025 Clinical EDC at the time of this exam is 12/01/2025 TECHNIQUE: Multiple static transabdominal images of the pelvis were submitted for review. Cine-images were also obtained. FINDINGS: Gestational Age estimated by this US: 18 weeks and 3 days EDC estimated by this US: 12/01/2025 EFW estimated by this US: 254 grams (0 pounds 9 ounces). EFW is at the 64.3% based upon the provided EDC or prior US if available. Placenta is located: Anterior position: Breech Heart Rate: 147 bpm Amniotic Fluid Deepest Vertical Pocket: 4.2 cm ANATOMY: 3 vessel cord: Seen with no gross abnormality identified. Intracranial Anatomy: Seen with no gross abnormality identified. Heart (4 chamber): Not clearly seen. Spine: Seen with no gross abnormality identified. Inferior most lumbar spine not fully included within the [id number]. Stomach: Seen with no gross abnormality identified. Renal Fossa (area): Not clearly seen. Urinary Bladder: Seen with no gross abnormality identified. Cord Insertion/Abdominal Wall: Seen with no gross abnormality identified. Nose/Lips: Seen with no gross abnormality identified. MEASUREMENTS: BPD: 4.04 cm, 18 w 2 d. HC: 15.02 cm, 18 w 1 d. AC: 13.41 cm, 18 w 6 d. FL: 2.85 cm, 18 w 5 d. HC/AC: 1.12 FL/HC: 18.97 FL/AC: 21.25 Cervical length: Initially measured 5.3 cm. Subsequent measurement of 3.7 cm. IMPRESSION: 1. Single live intrauterine gestation with heart rate 147 beats per minute. 2. Grossly normal anatomic survey. Heart and kidneys not well visualized. Consider attention on follow-up. 3. measurements as above. 4. Adequate amniotic fluid volume with maximum vertical pocket of 4.2 cm. Electronically signed by: Dillon Lang M.D. Betsy Munoz DO IMG OB US PROCEDURES Fi nal Result * 48 HR Holter Monitor (07/01/2025 2:06 PM FINANCIAL PROFESSIONAL) Anatomical Region Laterality Modality Electrocardiogra phy 07/01/2025 2:17 PM FINANCIAL PROFESSIONAL Narrative 07/08/2025 7:45 AM FINANCIAL PROFESSIONAL [address] [place] [address] HOLTER MONITOR Patient Name: ROSALBA LI G : 2005 Study Date: 07/01/2025 2:17:34 PM Sex: F Tech: Ref Provider: BETSY MUNOZ Height(Cm): BSA: Weight(Kg): Order Provider: BETSY MUNOZ PROCEDURES: Holter Report: Holter Monitor Report. INDICATIONS: R55 Syncope and collapse. FINDINGS: Protocol: Recording Duration (Ordered): [id number] Number of Diary entries 2025-07-01 14:17:34 CONCLUSIONS: 1. Predominant rhythm is normal sinus rhythm with a minimum heart rate of 36 beats per minute in sinus rhythm with second-degree AV block type 1 Wenckebach and a maximum heart rate of 146 beats per minute in sinus. There were several short runs of second-degree AV block type 1 Wenckebach. Average heart rate of 88 beats per minute Heart rate was controlled 77% of the time and was rapid 23% of the time. Total monitoring time of 1 day 23 hours 32 minutes. 2. Heart rate and rate variability is appropriate. 3. No prolonged pauses. 4. Rare PACs with only 102 PACs corresponding to less than 1% of total beats. 5. No PVCs. 6. The patient recorded no symptoms during the study. Electronically Signed By: Dr Benedicto Owen 07/08/2025 6:49:23 AM FINANCIAL PROFESSIONAL Procedure Note Benedicto Owen MD - 07/08/[address] [address] HOLTER MONITOR Patient Name: ROSALBA LI G : 2005 Study Date: 07/01/2025 2:17:34 PM Sex: F Tech: Ref Provider: BETSY MUNOZ Height(Cm): BSA: Weight(Kg): Order Provider: BETSY MUNOZ PROCEDURES: Holter Report: Holter Monitor Report. INDICATIONS: R55 Syncope and collapse. FINDINGS: Protocol: Recording Duration (Ordered): [id number] Number of Diary entries 2025-07-01 14:17:34 CONCLUSIONS: 1. Predominant rhythm is normal sinus rhythm with a minimum heart rate of36 beats per minute in sinus rhythm with second-degree AV block type 1 Wenckebach and amaximum heart rate of 146 beats per minute in sinus. There were several short runs of second-degree AV block type 1Wenckebach. Average heart rate of 88 beats per minute Heart rate was controlled 77% of the time and was rapid 23% of the time. Total monitoring time of 1 day 23 hours 32 minutes. 2. Heart rate and rate variability is appropriate. 3. No prolonged pauses. 4. Rare PACs with only 102 PACs corresponding to less than 1% of totalbeats. 5. No PVCs. 6. The patient recorded no symptoms during the study. Electronically Signed By: Dr Benedicto Owen 07/08/2025 6:49:23 AM FINANCIAL PROFESSIONAL Betsy Munoz DO CV CARDIAC SERVICES PRO CEDURES Final Result * Sepsis Lactate w/ Reflex (06/28/2025 4:17 PM CDT) [facility] Sepsis Lactate 0.7 0.7 - 2.0 mmol/L Blood 06/28/2025 4:17 PM CDT 06/28/2025 4:32 PM CDT Ed Adair MD LAB BLOOD ORDERABLES Final Result [facility] [place]) 1 [facility] [place] [address] * eGFR (06/28/2025 4:16 PM CDT) [facility] eGFR >90 >=60 mL/min/1. 73 m2 Comment: [...] interpretive data was last reviewed 2021. Blood 06/28/2025 4:16 PM CDT 06/28/2025 4:34 PM CDT us Ed Adair MD LAB BLOOD ORDERABLES Final Result [facility] ([place]) 1 [facility] Department [place] [address] * (ABNORMAL) Differential, auto (06/28/2025 4:16 PM CDT) Neutrophil abs 9.30(H) 1.50 - 6.50 K/cumm Imm gran abs 0.04 0.00 - 0.10 K/cumm [facility] ([place]) Lymphocyte abs 1.92 0.80 - 3.30 K/cumm [facility] ([place]) Monocyte abs 0.72 0.20 - 0.80 K/cumm [facility] ([place]) Eosinophil abs 0.07 0.00 - 0.50 K/cumm [facility] ([place]) Basophil abs 0.04 0.00 - 0.10 K/cumm [facility] ([place]) Neutrophil pct 76.9 % [facility] ([place]) Comment: Interpretive [...] was last revised on 2017. Lymphocyte pct 15.9 % [facility] ([place]) Comment: Interpretive Data Percent cell count reference ranges are not reported, since discordance with absolute values may lead to misinterpretation of CBC data. Current Interpretive Data was last revised on 2017. Monocyte pct 6.0 % [facility] ([place]) Comment: Interpretive Data Percent cell count reference ranges are not reported, since discordance with absolute values may lead to misinterpretation of CBC data. Current Interpretive Data was last revised on 2017. Eosinophil pct 0.6 % [facility] ([place]) Comment: Interpretive Data Percent cell count reference ranges are not reported, since discordance with absolute values may lead to misinterpretation of CBC data. Current Interpretive Data was last revised on 2017. Basophil pct 0.3 % [facility] ([place]) Comment: Interpretive Data Percent cell count reference ranges are not reported, since discordance with absolute values may lead to misinterpretation of CBC data. Current Interpretive Data was last revised on 2017. Blood 06/28/2025 4:16 PM CDT 06/28/2025 4:34 PM CDT Ed Adair MD LAB BLOOD ORDERABLES Final Result [facility] ([place]) 1 [facility] Department [place] [address] * (ABNORMAL) Urinalysis reflex to microscopic (06/28/2025 4:16 PM CDT) Color, ur Straw Yellow Clarity, ur Clear Clear [facility] ([place]) Specific gravity, ur 1.002(L) 1.003 - 1.030 [facility] ([place]) pH, urine 7.0 [facility] ([place]) Comment: Interpretive Data U rine pH is affected by diet, medications, systemic acid-base disturbances, and renal tubular function. pH may affect urinary stone formation. For example, urine pH below 6.0 may help reduce the tendency for calcium phosphate stones and pH greater than 6.0 may reduce the tendency for uric acid stone formation. Source: [facility] Current Interpretive Data was last revised on 2017 Protein, ur ql Negative Negative [facility] ([place]) Glucose, ur ql Negative Negative [facility] ([place]) Ketones, ur Negative Negative [facility] ([place]) Bilirubin, ur Negative Negative [facility] ([place]) Blood, ur Negative Negative [facility] ([place]) Urobilinogen, ur <2.0 <2.0 mg/dL [facility] ([place]) Nitrite, ur Negative Negative [facility] ([place]) Leukocyte esterase, ur Negative Negative [facility] ([place]) UA reflex comment Reflex conditions for microscopic UA not met. [facility] ([place]) Urine 06/28/2025 4:16 PM CDT 06/28/2025 4:34 PM CDT us Ed Adair MD LAB URINE ORDERABLES Final Result [facility] ([place]) 1 [facility] Department [place] [address] * (ABNORMAL) CBC with auto differential (06/28/2025 4:16 PM CDT) WBC 12.09(H) 3.80 - 9.90 K/cumm Hgb 11.2(L) 11.9 - 15.5 g/dL [facility] ([place]) Hct 32.0(L) 35.6 - 45.5 % [facility] ([place]) Plt 438(H) 150 - 400 K/cumm [facility] ([place]) MPV 9.9 9.1 - 12.3 fL [facility] ([place]) RBC 3.74(L) 3.90 - 5.20 M/cumm [facility] ([place]) MCV 85.6 81.3 - 96.4 fL [facility] ([place]) MCH 29.9 27.1 - 33.[address] [facility] ([place]) MCHC 35.0 32.3 - 35.7 g/dL [facility] ([place]) RDW CV 12.8 11.1 - 14.9 % [facility] ([place]) RDW SD 39.8 35.7 - 48.[address] [facility] ([place]) NRBC abs 0.00 0.00 - 0.01 K/cumm [facility] ([place]) Blood 06/28/2025 4:16 PM CDT 06/28/2025 4:34 PM CDT Ed Adair MD LAB BLOOD ORDERABLES Final Result Performing Organization Address City/[facility]/ZIP Co de Phone Number [facility] ([place]) 1 [facility] [email or web address] [address] * ABO/Rh (06/28/2025 4:16 PM CDT) ABO/Rh AB Positive Blood 06/28/2025 4:16 PM CDT 06/28/2025 4:[address] [facility] ([place]) - 06/28/2025 5:12 PM CDT Has the patient had Daratumumab or Isatuximab in the past 6 months?->Unknown Ed Adair MD LAB BLOOD BANK TEST ORDERAB LES Final Result [facility] ([place]) 1 [facility] [email or web address] [address] * (ABNORMAL) D-dimer, quantitative (06/28/2025 4:16 PM CDT) D-Dimer 825(H) <=499 ng/mL FEU [facility] ([place]) Comment: Interpretive data FDA approved the D-dimer, in conjunction with a low or moderate pretest probability score, to exclude venous thromboembolic events (VTE) (PE and DVT) in outpatients when the D-dimer result is < 500 ng/ml FEU. Evidence supports using an age-adjusted D-dimer cut-off for outpatients older than 50 (age x 10) to improve specificity without sacrificing sensitivity. Example: age 66, VTE cut-off 680 ng/ml FEU. References; Schboubacar HT et al. Brit Med J. 2013;346:f2492. Anthony et al. Annals Int Med. 2015;163:701-11. Current interpretive data was last revised on 2019. Blood 06/28/2025 4:16 PM CDT 06/28/2025 4:34 PM CDT Ed Adair MD LAB BLOOD ORDERABLES Final Result Performing Organization Address City/[facility]/ZIP Co de Phone Number SUPRIYA MICHAEL ([place]) [address] [place] [address] [email or web address] [address] * Antibody screen (06/28/2025 4:16 PM CDT) Andrew, indirect, Gel Interpretation Negative ABSC Blood 06/28/2025 4:16 PM CDT 06/28/2025 4:34 PM CDT Narrative SUPRIYA MICHAEL ([place]) - 06/28/2025 5:12 PM CDT Has the patient had Daratumumab or Isatuximab in the past 6 months?->Unknown Ed Adair MD LAB BLOOD BANK TEST ORDERAB LES Final Result Performing Organization Address City/[facility]/ZIP Co de Phone Number SUPRIYA MICHAEL ([place]) [address] [place] [address] [email or web address] [address] * Magnesium (06/28/2025 4:16 PM CDT) Magnesium 1.8 1.4 - 2.5 mg/dL Blood 06/28/2025 4:16 PM CDT 06/28/2025 4:34 PM CDT Ed Adair MD LAB BLOOD ORDERABLES Final Result SUPRIYA MICHAEL ([place]) 1 [facility] [place] [address] * (ABNORMAL) Blood gas, venous (06/28/2025 4:16 PM CDT) pH, Venous 7.50(H) 7.32 - 7.43 PCO2, Venous 27(L) 40 - 50 mmHg [facility] ([place]) PO2, Venous 154 mmHg [facility] ([place]) HCO3 Venous, Calculated 21 20 - 30 mmol/L [facility] ([place]) BE, venous -1 mmol/L [facility] ([place]) Comment: Interpretive Data No Reference Range Established Current Interpretive Data was last revised on 2017. Blood 06/28/2025 4:16 PM CDT 06/28/2025 4:32 PM CDT Ed Adair MD LAB BLOOD ORDERABLES Final Result Performing Organization Address [facility] de Phone Number SUPRIYA MICHAEL ([place]) 1 [facility] [place] [address] * (ABNORMAL) Comprehensive metabolic panel (06/28/2025 4:16 PM CDT) Sodium 134(L) 135 - 145 mmol/L Potassium, pl 3.5 3.3 - 4.9 mmol/L [facility] ([place]) Chloride 102 97 - 110 mmol/L [facility] ([place]) CO2 20(L) 22 - 32 mmol/L [facility] ([place]) Anion gap 12 2 - 15 mmol/L [facility] ([place]) BUN 4(L) 6 - 25 mg/dL [facility] ([place]) Creatinine 0.47(L) 0.60 - 1.10 mg/dL [facility] ([place]) Glucose 87 70 - 199 mg/dL [facility] ([place]) [...] classification and Diagnosis of Diabetes Diabetes Care 202; 46: S19-S40. Current interpretive data was last revised 2022. Calcium 9.4 8.5 - 10.3 mg/dL [facility] ([place]) Bilirubin, total 0.4 0.1 - 1.2 mg/dL [facility] ([place]) Protein, pl 6.8 6.5 - 8.5 g/dL [facility] ([place]) Albumin 4.2 3.5 - 5.0 g/dL [facility] ([place]) Alk phos 46 40 - 130 Units/L [facility] ([place]) ALT 18 7 - 45 Units/L [facility] ([place]) AST 20 10 - 45 Units/L [facility] ([place]) Blood 06/28/2025 4:16 PM CDT 06/28/2025 4:34 PM CDT us Ed Adair MD LAB BLOOD ORDERABLES Final Result Performing Organization Address City/[facility]/ZIP Co de Phone Number SUPRIYA [facility] ([place]) 1 [facility] [place] [address] * ECG 12 lead (06/28/2025 3:44 PM CDT) 06/28/2025 3:44 PM CDT Narrative [facility] [employer] - 06/30/2025 7:20 AM [employer]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 * POCT urine glucose and protein (06/05/2025 3:35 PM CDT) Glucose, ur, POC Negative Negative Protein, ur, POC Negative Negative Lot Number [id number] Urine 06/05/2025 3:35 PM CDT Betsy Munoz DO POINT OF CARE TEST ORDE RABLES Final Result * eGFR (06/03/2025 2:59 PM CDT) eGFR >90 >=60 mL/min/1. 73 m2 [...] Current interpretive data was last reviewed 2021. Testing performed by: [facility], [address] [place] [address]., [address] Blood 06/03/2025 2:59 PM CDT 06/03/2025 8:16 PM CDT Betsy Munoz DO LAB BLOOD ORDERABLES Fi nal Result SUPRIYA [address] [facility] Department [place] [address] * Urinalysis reflex to microscopic and culture Urine, clean voided (06/03/2025 2:59 PM CDT) Color, ur Yellow Yellow Comment:Testing performed by : [address], [address] Clarity, ur Clear Clear [facility] Comment:Testing performed by : [address] [address] Specific gravity, ur 1.008 1.003 - 1.030 [facility] Comment:Testing performed by : [address], [address] pH, urine 7.0 [facility] Comment: Interpretive Data U rine pH is affected by diet, medications, systemic acid-base disturbances, and renal tubular function. pH may affect urinary stone formation. For example, urine pH below 6.0 may help reduce the tendency for calcium phosphate stones and pH greater than 6.0 may reduce the tendency for uric acid stone formation. Source: [facility] [employer] Current Interpretive Data was last revised on 2017 Testing performed by: [address], [address] Protein, ur ql Negative Negative [facility] Comment:Testing performed by : [address], [address] Glucose, ur ql Negative Negative [facility] Comment:Testing performed by : [address], [address] Ketones, ur Negative Negative [facility] Comment:Testing performed by : [address], [address] Bilirubin, ur Negative Negative [facility] Comment:Testing performed by : [address], [address] Blood, ur Negative Negative [facility] Comment:Testing performed by : [address], [address] Urobilinogen, ur <2.0 <2.0 mg/dL [facility] Comment:Testing performed by : [address], [address] Nitrite, ur Negative Negative [facility] Comment:Testing performed by : [address], [address] Leukocyte esterase, ur Negative Negative [facility] Comment:Testing performed by : [address], [address] UA reflex comment Reflex conditions for microscopic UA and culture not met. [facility] Comment:Testing performed by : [facility], [address] [place] [address]., [address] Urine, clean voided 06/03/2025 2:59 PM CDT 06/03/2025 7:44 PM CDT Betsy Munoz LAB MICROBIOLOGY - GENE RAL ORDERABLES Final Result Performing Organization Address City/[facility]/ZIP Co de Phone Number MA[place]O [address] Marc Department [place] [address] * Phosphorus (06/03/2025 2:59 PM CDT) [facility] Phosphorus, pl 3.6 2.3 - 4.5 mg/dL Comment:Testing performed by : [facility], [address] [place] [address]., [address] Blood 06/03/2025 2:59 PM CDT 06/03/2025 7:44 PM CDT Betsy Munoz LAB BLOOD ORDERABLES Fi nal Result Performing Organization Address [facility] Co de Phone Number SUPRIYA [address] [address] [facility] [place] [address] * Magnesium (06/03/2025 2:59 PM CDT) [facility] Magnesium 2.0 1.4 - 2.5 mg/dL Comment:Testing performed by : [facility], [address] [place] [address]., [address] Blood 06/03/2025 2:59 PM CDT 06/03/2025 7:44 PM CDT Betsy Munoz DO LAB BLOOD ORDERABLES Fi nal Result Performing Organization Address City/[facility]/ZIP Co de Phone Number SUPRIYA [address] [address] Department [place] [place] [address] * (ABNORMAL) Comprehensive metabolic panel (06/03/2025 2:59 PM CDT) Sodium 135 135 - 145 mmol/L Comment:Testing performed by : [facility], [address] [place] [address]., [address] Potassium, pl 3.9 3.3 - 4.9 mmol/L [facility] Comment:Testing performed by : [address] [address] Chloride 101 97 - 110 mmol/L [facility] Comment:Testing performed by : [address] [address] CO2 20(L) 22 - 32 mmol/L [facility] Comment:Testing performed by : [address] [address] Anion gap 14 2 - 15 mmol/L [facility] Comment:Testing performed by : [address] [address] BUN 3(L) 6 - 25 mg/dL [facility] Comment:Testing performed by : [address] [address] Creatinine 0.56(L) 0.60 - 1.10 mg/dL [facility] Comment:Testing performed by : [address] [address] Glucose 101 70 - 199 mg/dL CERNER Comment: Interpretive Data Fasting glucose >/= 126 [...] classification and Diagnosis of Diabetes Diabetes Care 202; 46: S19-S40. Current interpretive data was last revised 2022. Testing performed by: [address] [address] Calcium 9.6 8.5 - 10.3 mg/dL [facility] Comment:Testing performed by : [address] [address] Bilirubin, total 0.5 0.1 - 1.2 mg/dL [facility] Comment:Testing performed by : [address], [place]., [address] Protein, pl 7.2 6.5 - 8.5 g/dL [facility] Comment:Testing performed by : [address], [address] Albumin 4.1 3.5 - 5.0 g/dL [facility] Comment:Testing performed by : [address], [address] Alk phos 54 40 - 130 Units/L [facility] Comment:Testing performed by : [address], [address] ALT 18 7 - 45 Units/L [facility] Comment:Testing performed by : [address], [address] AST 23 10 - 45 Units/L [facility] Comment:Testing performed by : [address], [address] Blood 06/03/2025 2:59 PM CDT 06/03/2025 7:44 PM CDT Betsy Munoz DO LAB BLOOD ORDERABLES Fi nal Result Performing Organization Address City/[facility] Co de Phone Number [address] Department [place] [address] * ECG 12 lead (05/24/2025 1:49 AM CDT) 05/24/2025 1:49 AM CDT Narrative [facility] - 05/24/2025 8:28 AM CDT Vent Rate: 69 bpm RR Interval: 866 msec SC Interval: 144 msec QRS Duration: 89 msec QT Interval: 372 msec QTC Interval: 391 msec P-R-T [place]: 18 - 44 - 37 degrees IMPRESSION: SINUS RHYTHM NORMAL ECG Electronically Signed By: Azeem Plascencia MD us Candida Velasquez MD ECG ORDERABLES Final Result Performing Organization Address City/[facility] Co de Phone Number [facility] [employer] [facility] * eGFR (05/24/2025 1:34 AM CDT) eGFR >90 >=60 mL/min/1. 73 [...] interpretive data was last reviewed 2021. Blood 05/24/2025 1:34 AM CDT 05/24/2025 1:37 AM CDT us Candida Velasquez MD LAB BLOOD ORDERABLES Final Resul t SUPRIYA [facility] ([place]) 1 [facility] Department [place] [address] * (ABNORMAL) Differential, auto (05/24/2025 1:34 AM CDT) Pathologist [facility] Neutrophil abs 10.89(H) 1.50 - 6.50 K/cumm Imm gran abs 0.05 0.00 - 0.10 K/cumm [facility] ([place]) Lymphocyte abs 2.43 0.80 - 3.30 K/cumm [facility] ([place]) Monocyte abs 0.75 0.20 - 0.80 K/cumm [facility] ([place]) Eosinophil abs 0.05 0.00 - 0.50 K/cumm [facility] ([place]) Basophil abs 0.06 0.00 - 0.10 K/cumm [facility] ([place]) Neutrophil pct 76.4 % [facility] ([place]) Comment: Interpretive Data Percent cell count reference ranges are not reported, since discordance with absolute values may lead to misinterpretation of CBC data. Current Interpretive Data was last revised on 2017. Imm gran pct 0.4 % [facility] ([place]) Comment: Interpretive Data Percent cell count reference ranges are not reported, since discordance with absolute values may lead to misinterpretation of CBC data. Current Interpretive Data was last revised on 2017. Lymphocyte pct 17.1 % [facility] ([place]) Comment: Interpretive Data Percent cell count reference ranges are not reported, since discordance with absolute values may lead to misinterpretation of CBC data. Current Interpretive Data was last revised on 2017. Monocyte pct 5.3 % [facility] ([place]) Comment: Interpretive Data Percent cell count reference ranges are not reported, since discordance with absolute values may lead to misinterpretation of CBC data. Current Interpretive Data was last revised on 2017. Eosinophil pct 0.4 % [facility] ([place]) Comment: Interpretive Data Percent cell count reference ranges are not reported, since discordance with absolute values may lead to misinterpretation of CBC data. Current Interpretive Data was last revised on 2017. Basophil pct 0.4 % [facility] ([place]) Comment: Interpretive Data Percent cell count reference ranges are not reported, since discordance with absolute values may lead to misinterpretation of CBC data. Current Interpretive Data was last revised on 2017. Blood 05/24/2025 1:34 AM CDT 05/24/2025 1:37 AM CDT us Candida Velasquez MD LAB BLOOD ORDERABLES Final Resul t SUPRIYA MICHAEL ([place]) 1 [facility] Department of Laboratories [place], [place] [id number] * (ABNORMAL) CBC with auto differential (05/24/2025 1:34 AM CDT) WBC 14.23(H) 3.80 - 9.90 K/cumm Hgb 11.8(L) 11.9 - 15.5 g/dL [facility] ([place]) Hct 34.8(L) 35.6 - 45.5 % [facility] ([place]) Plt 460(H) 150 - 400 K/cumm [facility] ([place]) MPV 9.0(L) 9.1 - 12.3 fL [facility] ([place]) RBC 3.94 3.90 - 5.20 M/cumm [facility] ([place]) MCV 88.3 81.3 - 96.4 fL [facility] ([place]) MCH 29.9 27.1 - 33.3 pg [facility] ([place]) MCHC 33.9 32.3 - 35.7 g/dL [facility] ([place]) RDW CV 12.8 11.1 - 14.9 % [facility] ([place]) RDW SD 41.4 35.7 - 48.1 fL [facility] ([place]) NRBC abs 0.00 0.00 - 0.01 K/cumm [facility] ([place]) Blood 05/24/2025 1:34 AM CDT 05/24/2025 1:37 AM CDT us Candida Velasquez MD LAB BLOOD ORDERABLES Final Resul t [facility] ([place]) 1 [facility] Department [place] [address] * (ABNORMAL) hCG, blood, quantitative (05/24/2025 1:34 AM CDT) hCG, quant >10,000.0 (H) 0.0 - 5.0 IUnits/L [facility] ([place]) Comment: Interpretive Data Male: < 5 IU/L Non- premenopausal Female: <5 IU/L The Vadim hCG Beta Quant assay procedure was used. Results from different manufacturers or methods may not be comparable. Serial testing should be performed using the same method. Interpretive Data was last revised on 2023 hCG, quant 47,839.0( H) 0.0 - 5.0 IUnits/L [facility] ([place]) Comment: Interpretive Data Male: < 5 IU/L Non- premenopausal Female: <5 IU/L The Vadim hCG Beta Quant assay procedure was used. Results from different manufacturers or methods may not be comparable. Serial testing should be performed using the same method. Interpretive Data was last revised on 2023 Blood 05/24/2025 1:34 AM CDT 05/24/2025 1:37 AM CDT us Candida Velasquez MD LAB BLOOD ORDERABLES Final Resul t [facility] ([place]) 1 [facility] Department [place] [address] * (ABNORMAL) Comprehensive metabolic panel (05/24/2025 1:34 AM CDT) Sodium 136 135 - 145 mmol/L [facility] ([place]) Potassium, pl 3.4 3.3 - 4.9 mmol/L [facility] ([place]) Chloride 100 97 - 110 mmol/L [facility] ([place]) CO2 23 22 - 32 mmol/L [facility] ([place]) Anion gap 13 2 - 15 mmol/L [facility] ([place]) BUN 5(L) 6 - 25 mg/dL [facility] ([place]) Creatinine 0.59(L) 0.60 - 1.10 mg/dL [facility] ([place]) Glucose 92 70 - 199 mg/dL [facility] ([place]) [...] classification and Diagnosis of Diabetes Diabetes Care 202; 46: S19-S40. Current interpretive data was last revised 2022. Calcium 10.0 8.5 - 10.3 mg/dL [facility] ([place]) Bilirubin, total 0.5 0.1 - 1.2 mg/dL [facility] ([place]) Protein, pl 7.5 6.5 - 8.5 g/dL [facility] ([place]) Albumin 4.6 3.5 - 5.0 g/dL [facility] ([place]) Alk phos 50 40 - 130 Units/L [facility] ([place]) ALT 16 7 - 45 Units/L [facility] ([place]) AST 21 10 - 45 Units/L [facility] ([place]) Blood 05/24/2025 1:34 AM CDT 05/24/2025 1:37 AM CDT us Candida Velasquez MD LAB BLOOD ORDERABLES Final Resul t [facility] ([place]) 1 [facility] [place] [address] * QNatelaAdvanced (05/09/2025 1:19 PM CDT) Number of fetuses 1 [facility] [place] [facility], Down syndrome risk, maternal age NOT GIVEN [facility] [place] [facility], Abnormal Marcela? NOT GIVEN [facility] [place] [facility], Abnormal Us? NOT GIVEN [facility]/ [place] [facility], History, personal/family NOT GIVEN [facility]/ [place] [facility], test, interpretation SEE NOTE [facility] [place] [facility], Comment: This specimen showed an expected representation of chromosome 21, 18, and 13 material. See Limitations below. Trisomy 21 risk assessment Negative [facility] [place] [facility], Trisomy 18 (T18) Negative [facility] [place] [facility], Trisomy 13 risk assessment Negative [facility] [place] [facility], Genotype Assay Not detected [facility] [place] [facility], Cytogenetic Diagnosis SEE NOTE [facility] [place] [facility], Comment:Consistent with a fe male fetus. Sex chromosome No aneuploidy [facility]/ [place] [facility], Comment SEE NOTE [facility] [place] [facility], Comment: No apparent abnormality was detected. See Limitations below. MICRODELETION Not detected [facility]/ [place] [facility], MICRODELETION INTERP SEE NOTE [facility]/ [place] [facility], Comment: No apparent abnormality was detected. See Limitations below. Gestational age 10 Ques t [facility]/ [place] [facility], Gestational age 4 Ques t [facility]/ [place] [facility], Fraction 18.50% [facility] [place] [facility], test, comment SEE NOTE [facility]/ [place] [facility], Comment: Laboratory testing supervised and results monitored by Amrit Fung, Ph.D., [facility], [facility], [facility]. test, limitations SEE NOTE [facility]/ [place] [facility], Comment: QNatal(R) Advanced is a cell-free DNA screening test that screens for increased risk of certain chromosomal abnormalities that may cause defects, including Trisomy 21 (Down syndrome), Trisomy 18, Trisomy 13, and certain sex chromosome abnormalities (i.e., 45,X, 47,XXY, 47,XXX, and 47,XYY), as well as sex. In addition, if selected as an option, QNatal(R) Advanced can screen for certain microdeletions (i.e., 22q, 5p, 1p36, 15q, 11q, 8q, and 4p) that may cause defects. This test does not assess the risk of abnormalities such as neural tube defects or ventral wall defects and should not be considered in isolation from other clinical findings and laboratory test results. QNatal(R) Advanced has been validated in cronin pregnancies for the trisomies and sex chromosome abnormalities listed above, as well as for microdeletions, and for the determination of sex. Sex chromosome aneuploidy analysis is only performed in cronin pregnancies. This screening test has also been validated in twin pregnancies for the trisomies listed above and for microdeletions, but not for the sex chromosome abnormalities due to limited data. This screening test has not been validated in higher order pregnancies (more than two) because limited data is available. Sex chromosomal aneuploidy results issued for pregnancies confirmed to be of multiple gestations are not valid and should be disregarded. Microdeletion screening is limited to the specified microdeletion regions (see Methodology). The Y chromosome is analyzed for the determination of sex. The sensitivity and specificity of sex determination analysis may be less than that of the Trisomy 21, 18, and 13 analysis and this determination can be confounded by vanishing twin syndrome in pregnancies that were originally multiple gestation pregnancies. It should be noted that QNatal(R) Advanced is a quantitative analysis of maternal and placental cfDNA. As a result, the accuracy of screening results may be affected by the presence of chromosome abnormalities or microdeletions that are maternal or confined placental in origin. SPECIFICATIONS SEE NOTE [facility], Comment: Sensitivity Specificity T21 >99.9% >99.9% T18 >99.9% >99.9% T13 >99.9% >99.9% Accuracy Y >99.9% Performance of the QNatal Advanced laboratory-developed test (LDT) has been determined based on internal analytical assessment. METHODOLOGY SEE NOTE [facility] [place], Comment: Circulating cell-free (cf) DNA was isolated from plasma followed by detection on a massively parallel sequencing platform. Bioinformatic analysis was performed to determine the representation of chromosomes 21, 18, 13, X and Y in circulating cell-free DNA. The representation of sequences from the critical regions involved in 1p36 microdeletion syndrome (1p36), Treviño-Hirschhorn syndrome (4p), Cri-du-chat syndrome (5p), Carol-Giedion syndrome (8q), Jay syndrome (11q), Prader Willi syndrome/Angelman syndrome (15q), and DiGeorge syndrome (22q) is evaluated for the detection of microdeletions if requested. Performance characteristics refer to the analytical performance of this screening test. This screening test is performed pursuant to a license agreement with [employer]. QNatal Advanced is a laboratory developed test that has been developed and validated, pursuant to the Clinical Laboratory Improvements Amendments of 1988 (CLIA), and as such it has not been reviewed by FDA. Blood 05/09/2025 1:19 PM CDT 05/09/2025 1:23 PM CDT Betsy Munoz DO LAB GENETIC TESTING Fin al Result [facility] [employer] [facility]/[place] [facility], [address] [address] [facility] [place] [address] * POCT urine glucose and protein (05/08/2025 3:42 PM CDT) Glucose, ur, POC Negative Negative Protein, ur, POC Negative Negative Lot Number [id number] Urine 05/08/2025 3:42 PM CDT Betsy Munoz DO POINT OF CARE TEST ORDE RABLES Final Result * (ABNORMAL) Urinalysis reflex to microscopic and [...] tendency for uric acid stone formation. Source: [facility] [employer] Current Interpretive Data was last revised on [...] for microscopic UA and culture not met. SUPRIYA ALEC ([place]) Urine 04/22/2025 11:1 9 AM CDT 04/22/2025 11:22 AM CDT us Az Yung MD LAB MICROBIOLOGY - GENERAL O RDERABLES Final Result SUPRIYA MICHAEL ([place]) 1 [facility] Department [place] [address] * US Gallbladder (04/22/2025 11:03 AM CDT) [...] thickening or pericholecystic fluid. No positive sonographic [place] sign reported. BILIARY: There is no intrahepatic or extrahepatic biliary ductal dilatation. Common bile duct measures 0.2 cm in diameter. RIGHT KIDNEY: Normal size. Normal echogenicity. No solid mass or cyst. No hydronephrosis. Measures 11.1 cm in length. OTHER: No other significant findings. IMPRESSION: 1. No acute abnormality. THIS IS AN ELECTRONICALLY VERIFIED FINAL REPORT 04/22/2025 12:45 PM - Electronically signed by Feliberto Guidry M.D. JA: NOHELIA Report ID: [id number] [place] Location: [id number] Procedure Note Feliberto Guidry MD - 04/22/2025 [...] wall thickening or pericholecystic fluid. No positivesonographic [place] sign reported. BILIARY: There is no intrahepatic or extrahepatic biliary ductaldilatation. Common bile duct measures 0.2 cm in diameter. RIGHT KIDNEY: Normal size. Normal echogenicity. No solid mass or cyst.No hydronephrosis. Measures 11.1 cm in length. OTHER: No other significant findings. IMPRESSION: 1. No acute abnormality. THIS IS AN ELECTRONICALLY VERIFIED FINAL REPORT 04/22/2025 12:45 PM - Electronically signed by Feliberto Guidry M.D. JA: NOHELIA Report ID: [id number] [place] Location: [place] [address] us Jabari COHEN IMG US PROCEDURE S Final Result * eGFR [...] 7:41 AM CDT 04/22/2025 7:49 AM CDT Az Yung MD LAB BLOOD ORDERABLES Final R esult [facility] ([place]) 1 [facility] [place] [address] * (ABNORMAL) Differential, auto (04/22/2025 7:41 AM [...] Final R esult [facility] ([place]) 1 [facility] [place] [address] * (ABNORMAL) CBC with auto differential (04/22/2025 [...] RDW SD 40.3 35.7 - 48.1 fL [facility] ([place]) NRBC abs 0.00 0.00 - 0.01 K/cumm SUPRI[facility] MICHAEL ([place]) Blood Venous blood specimen / Unknown 04/22/2025 7:41 AM CDT 04/22/2025 7:49 AM CDT Az Yung MD LAB BLOOD ORDERABLES Final R esult Performing Organization Address [facility] de Phone Number SUPRIYA MICHAEL ([place]) 1 [facility] [place] [place] [address] * (ABNORMAL) hCG, blood, quantitative (04/22/2025 7:41 AM CDT) hCG, quant 50,300.0( H) 0.0 - 5.0 IUnits/L SUPRIYA MICHAEL ([place]) Comment: Interpretive Data Male: < 5 IU/L Non- premenopausal Female: <5 IU/L The Vadim hCG Beta Quant assay procedure was used. Results from different manufacturers or methods may not be comparable. Serial testing should be performed using the same method. Interpretive Data was last revised on 2023 Blood 04/22/2025 7:41 AM CDT 04/22/2025 8:10 AM CDT Jabari COHEN LAB BLOOD ORDERA BLES Final Result Performing Organization Address [facility] Co de Phone Number SUPRIYA MICHAEL ([place]) 1 [facility] [place] [address] * Lipase (04/22/2025 7:41 AM CDT) Lipase 33 10 - 99 Units/L SUPRIYA MICHAEL ([place]) Blood Venous blood specimen / Unknown 04/22/2025 7:41 AM CDT 04/22/2025 7:49 AM CDT Az Yung MD LAB BLOOD ORDERABLES Final R esult [facility] ([place]) 1 [facility] Department [place] [address] * (ABNORMAL) Comprehensive metabolic panel (04/22/2025 7:41 AM CDT) Sodium 139 135 - 145 mmol/L [facility] ([place]) Potassium, pl 4.0 3.3 - 4.9 mmol/L [facility] ([place]) Chloride 104 97 - 110 mmol/L [facility] ([place]) CO2 19(L) 22 - 32 mmol/L [facility] ([place]) Anion gap 16(H) 2 - 15 mmol/L [facility] ([place]) BUN 9 6 - 25 mg/dL [facility] ([place]) Creatinine 0.55(L) 0.60 - 1.10 mg/dL [facility] ([place]) Glucose 100 70 - 199 mg/dL [facility] ([place]) [...] 7:41 AM CDT 04/22/2025 7:49 AM CDT Az Yung MD LAB BLOOD ORDERABLES Final R esult [facility] ([place]) 1 [facility] [place] [address] * Hepatitis C antibody Blood (04/11/2025 9:46 [...] last revised on 2019. Testing performed by: [facility], [address] [place] [address]., [id number] Blood 04/11/2025 9:46 AM CDT 04/11/2025 2:06 PM CDT Betsy Munoz DO LAB MICROBIOLOGY - GENE RAL ORDERABLES Final Result Performing Organization Address [facility] Co de Phone Number SUPRIYA [address] Department [place] [address] * Pap with reflex to High Risk HPV and Genotyping (Cytology Component) (04/10/2025 12:04 PM CDT) Thin prep (Pap test) 04/10/2025 12:04 PM CDT 04/10/2025 12:04 PM CDT Narrative PATHOLOGY - 04/18/2025 1:10 PM CDT [facility] Department of Pathology [address] [place] [id number] Final Report Note to Patients: This report [...] the details. Patient Name: ROSALBA LI Address: [address] [place] [address] Gender: F : 2005 (Age: 19) Service: Location: N : [id number] [facility] #: [id number] Patient Type: [facility] SPECIMEN Taken: 04/10/2025 Received: 04/10/2025 Accessioned:: 04/11/2025 Reported: 04/18/2025 Physician(s): Mila Martin D.O. Diagnosis: SOURCE OF SPECIMEN Imaged Thinprep Pap Test w/ Reflex HPV - [facility] Working Supervisor Cytologic Material: STATEMENT OF ADEQUACY - Satisfactory for evaluation; endocervical/transformation zone component present GENERAL CATEGORIZATION: - Negative for intraepithelial lesion or malignancy GARY Masterson(ASCP)GARY Alford(ASCP) Report Electronically Reviewed and Signed Out By GARY Alford(ASCP) 04/18/2025 13:10:22Specimen(s) Received: A: Imaged Thinprep Pap Test w/ Reflex HPV - [facility] Working Supervisor Cytologic Material Clinical History: Last Menstrual Period: [...] determined by the Surgical Pathology Department at [facility] as part of an ongoing quality process lead program and in compliance with federally mandated [...] characteristics determined by the Surgical Pathology Department [facility]. It has not been cleared or approved by the [place]. Food and Drug Administration. Betsy Munoz DO LAB CYTOLOGY ORDERABLES Final Result PATHOLOGY [address] [place] [address] * N. gonorrhoeae/C. trachomatis Amplification Thin prep-Endocervical (04/10/2025 12:04 PM CDT) C. trachomatis Not Detected [facility] Comment:Testing performed by : [facility], [address] [facility] [place]., [address] N. gonorrhoeae Not Detected SUPRIYA CANALES Comment: Interpretive Data This assay detects Chlamydia trachomatis and Neisseria gonorrhoeae by nucleic acid amplification testing (NAAT). This assay has been cleared by the [place] Food and Drug administration. The performance characteristics of this test have been verified by the [facility] Molecular Infectious Disease laboratory. The performance characteristics of this test have not been evaluated in individuals less than 14 years of age. Current Interpretive Data was last revised on 2023. Testing performed by: [facility], [address] [facility] [place]., [address] Thin prep-Endocervica l 04/10/2025 12:04 PM CDT 04/11/2025 12:00 PM CDT Betsy Munoz DO LAB MICROBIOLOGY - GENE RAL [place] [address] [address] Department of Laboratories [place], [place] [id number] [facility] from Last 3 Months or Most Recently Relevant to Health Maintenance Insurance [facility] MEDICAID [facility] Care Teams Field Counsel Relationship Specialty Start Date End Date Betsy Munoz DO [address] [place] [address] PCP - General Obstetrics and Gynecology 06/24/25
== END 2025-07-15 18:54 | disposition home or self-care (01) ==
PROVIDERS: Emergency Provider Registered Nurse
DX: O99.891 Other specified diseases and conditions complicating pregnancy (principal); H60.311 Diffuse otitis externa, right ear; R05.1 Acute cough; Z3A.20 20 weeks gestation of pregnancy; Z87.891 Personal history of nicotine dependence
CPT/HCPCS: 99213; G0463